=== PATIENT | female | born 1945 | race Caucasian/White ===

== ENCOUNTER 2023-03-28 12:47 | Emergency (ER) | payer OTHER ==
--- OUTSIDE RECORDS SUMMARY | 2023-03-28 12:50 | XMS REPORT | Continuity of Care Document ---
:1945 Author Organization [facility] t Address [address] [place] [address]. [address] [place] [address] Care Team Providers Name Role Phone MoRoge greyevan Marco Primary Care Physician RADIOLOGY Attending Clinician Unavailable Radiology Attending Clinician Unavailable Doctor Unassigned, [place] Attending Clinician Unavailable Payers Payer Name Policy Type Policy Number Effective Date Expiration Date [id number] 2022 ACCESS OPEN PPO 00:00:00 MEDICAID [place] [id number] 2023 00:00:00 Problems This patient has no known problems. Allergies, Adverse Reactions, Alerts Allergy Allergy Status Severity Reaction(s) Onset Inactive Treating Comm ents Source Name Type Date Date Clinician NO KNOWN Drug Active Univers ALLERGIE Class ity of [facility] Social History Social Habit Start Date Stop Date Quantity Comments Source Gender identity [facility] [birth year] [facility] 00:00:00 00:00:00 Medical Branch Smoking Status Start Date Stop Date Source Tobacco smoking consumption Univ [facility] Branch Medications This patient has no known medications. Procedures Procedure Date / Time Performed Performing Clinician Charan waller MR CERVICAL SPINE WO 2023-03-19 16:59:51 Requisition, Paper Univ [facility] ASSIGNMENT OF BENEFITS 2023-03-19 15:59:50 Doctor Unassigned, No [facility] Medical Branch Encounters Start End Encounter Admission Attending Care Care Encounter Source Date/Time Date/Time Type Type Clinicians Facility Department ID 2023-03-25 2023-03-25 Outpatient R RADIOLOGY [facility] [id number] Univers 00:00:00 00:00:00 ity of [facility] 2023-03-19 2023-03-19 [facility] Radiology [facility] [id number] Univers 12:04:14 23:59:00 Encounter [place] [id number] ity [place] [id number] [place] [id number] [facility] 807 Branch 2023-03-19 2023-03-19 [facility] Radiology [facility] [id number] Univers 11:02:55 12:03:00 Encounter [place] [id number] [facility] [place] [id number] 804 Branch 2023-03-19 2023-03-19 Outpatient R RADIOLOGY [facility] [id number] Univers 11:02:55 12:03:00 ity of [facility] 2023-03-19 2023-03-19 Orders Doctor EDGARDO [id number] Univers 00:00:00 00:00:00 Only Unassigned, CATHY [id number] ity of [place] [facility] [id number] Rakesh as [phone] [place] [id number] Branch Results This patient has no known results.
--- NOTE | 2023-03-28 13:35 | RAD REPORT ---
EXAM DESCRIPTION: RADChest Single View03/28/2023 1:05 pm CLINICAL HISTORY: Weakness COMPARISON: Chest Single View dated 11/18/2022 TECHNIQUE: Portable AP view of the chest. FINDINGS: The lungs are clear.Streaky left mid to lower lung opacity favored to represent atelectasi s. No pneumothorax or effusion. The cardiomediastinal contours are unremarkable. IMPRESSION: No acute cardiopulmonary process.
[2023-03-28 13:50] LABS: Absolute Lymphocytes (CBC) 2.3 K/uL (0.7-4.9); Hematocrit 41.7 % (36.0-45.0); MPV 8.3 fL (7.6-11.3); Platelets 220 thou/uL (152-406)
[2023-03-28 14:05] LABS: Albumin 3.7 g/dL (3.4-5.0); Bilirubin Direct 0.1 mg/dL (0-0.2); Bilirubin Indirect, Calculated 0.5 mg/dL (0.2-0.8); Bilirubin Total 0.6 mg/dL (0.2-1.0); Magnesium 2.2 mg/dL (1.6-2.4); Protein, Total 7.9 g/dL (6.4-8.2); Troponin High Sensitivity 6.6 pg/mL (<58.9)
--- NOTE | 2023-03-28 14:10 | EDPHYS ---
Physician Documentation [facility] Name: Madeline Parks Age: 78 yrs Sex: Female : 1945 Arrival Date: 03/28/2023 Time: 12:47 Bed 2 Private MD: ED Physician Darryn Barrios HPI: 03/28 17:07 This 78 yrs old Female presents to ER via EMS with complaints of difficulty walking. kdr 17:07 The patient presents with difficulty walking and incontinence of urine and possibly kdr bowel. The patient has had upper extremity/arm pain for several months. In the course of this being evaluated, the patient was sent for an MRI of her spine. This revealed a pathologic fracture in the C5 region. There was some associated cord compression and cord edema. The patient also stated that she was having difficulty getting comfortable due to the pain across the top of her shoulders and neck. Patient otherwise is nontoxic-appearing and is stable on presentation. Onset: The symptoms/episode began/occurred gradually, 2 month(s) ago, The incontinence of urine and possibly bowel have been worse over the past 3 to 5 days. Severity of symptoms: At their worst the symptoms were mild moderate just prior to arrival. The patient has not experienced similar symptoms in the past. The patient has been recently seen by a physician: the patient's primary care provider. Historical: - Allergies: 12:51 No Known Allergies; bp - Home Meds: 12:51 Labetalol Oral [Active]; meloxicam oral [Active]; Tylenol #3 Oral [Active]; bp - PMHx: 12:51 Arthritis; diabetes mellitus; Hypercholesterolemia; Hypertensive disorder; bp - Immunization history:: Adult Immunizations up to date. - Social history:: Smoking status: Patient denies any tobacco usage or history of. ROS: 17:07 Constitutional: Negative for fever, chills, and weight loss, Eyes: Negative for injury, kdr pain, redness, and discharge, ENT: Negative for injury, pain, and discharge, Cardiovascular: Negative for chest pain, palpitations, and edema, Respiratory: Negative for shortness of breath, cough, wheezing, and pleuritic chest pain, Abdomen/GI: Negative for abdominal pain, nausea, vomiting, diarrhea, and constipation, Back: Negative for injury and pain, : Negative for injury, bleeding, discharge, and swelling, MS/Extremity: Negative for injury and deformity, Skin: Negative for injury, rash, and discoloration, Psych: Negative for depression, anxiety, suicide ideation, homicidal ideation, and hallucinations, Allergy/Immunology: Negative for hives, rash, and allergies, Endocrine: Negative for neck swelling, polydipsia, polyuria, polyphagia, and marked weight changes, Hematologic/Lymphatic: Negative for swollen nodes, abnormal bleeding, and unusual bruising. 17:07 Neck: Positive for pain with movement, pain at rest, of the left trapezius, right trapezius and thoracic area. Exam: 17:07 Constitutional: This is a well developed, well nourished patient who is awake, alert, kdr and in no acute distress. Head/Face: Normocephalic, atraumatic. Chest/axilla: Normal chest wall appearance and motion. Nontender with no deformity. No lesions are appreciated. Cardiovascular: Regular rate and rhythm with a normal S1 and S2. No gallops, murmurs, or rubs. Normal PMI, no JVD. No pulse deficits. Respiratory: Lungs have equal breath sounds bilaterally, clear to auscultation and percussion. No rales, rhonchi or wheezes noted. No increased work of breathing, no retractions or nasal flaring. Abdomen/GI: Soft, non-tender, with normal bowel sounds. No distension or tympany. No guarding or rebound. No evidence of tenderness throughout. Back: No spinal tenderness. No costovertebral tenderness. Full range of motion. Skin: Warm, dry with normal turgor. Normal color with no rashes, no lesions, and no evidence of cellulitis. MS/ Extremity: Pulses equal, no cyanosis. Neurovascular intact. Full, normal range of motion. Psych: Awake, alert, with orientation to person, place and time. Behavior, mood, and affect are within normal limits. Vital Signs: 12:50 BP 150 / 90; Pulse 64; Resp 16; Temp 99.2; Pulse Ox 99% ; bp 14:37 BP 155 / 64; Pulse 74; Resp 15; Pulse Ox 95% ; jl7 16:14 BP 151 / 73; Pulse 75; Resp 16; Pulse Ox 97% ; bp MDM: 14:09 Patient medically screened. kdr 17:07 Data reviewed: vital signs, nurses notes, lab test result(s), radiologic studies. kdr 03/28 12:53 Order name: Basic Metabolic Panel kdr 03/28 12:53 Order name: CBC with Diff kdr 03/28 12:53 Order name: LFT's kdr 03/28 12:53 Order name: Magnesium kdr 03/28 12:53 Order name: NT PRO-BNP kdr 03/28 12:53 Order name: Troponin HS kdr 03/28 12:53 Order name: XRAY Chest (1 view) kdr 03/28 12:53 Order name: EKG; Complete Time: 12:54 kdr 03/28 12:53 Order name: Cardiac monitoring; Complete Time: 12:55 kdr 03/28 12:53 Order name: EKG - Nurse/Tech; Complete Time: 13:36 kdr 03/28 12:53 Order name: IV Saline Lock; Complete Time: 13:36 kdr 03/28 12:53 Order name: Labs collected and sent; Complete Time: 13:36 kdr 03/28 12:53 Order name: O2 Per Protocol; Complete Time: 12:55 kdr 03/28 12:53 Order name: O2 Sat Monitoring; Complete Time: 12:55 kdr Administered Medications: 14:15 Drug: MethylPrednisoLONE IVP 125 mg Route: IVP; Site: left antecubital; bp 16:14 Follow up: Response: No adverse reaction bp Disposition Summary: 03/28/23 14:09 Transfer Ordered Transfer Location: [facility] kdr Reason: Higher level of care kdr Condition: Fair kdr Problem: new kdr Symptoms: are unchanged kdr Accepting Physician: Eduin(03/28/23 16:36) bp Diagnosis - C5 pathologic fracture with endplate retropulsion and cord impingement kdr Forms: - Medication Reconciliation Form kdr - SBAR form kdr Signatures: Dispatcher [employer] EDMS Darryn Barrios MD MD kdr Clyde Londono RN RN bp Corrections: (The following items were deleted from the chart) 14:09 14:09 xdv kdr kdr 16:36 14:09 Eduin kdr bp
--- NOTE | 2023-03-28 14:10 | ER ---
Nurse's Notes [facility] Name: Madeline Parks Age: 78 yrs Sex: Female : 1945 Arrival Date: 03/28/2023 Time: 12:47 Bed 2 Private MD: Diagnosis: C5 pathologic fracture with endplate retropulsion and cord impingement Presentation: 03/28 12:50 Chief complaint: EMS states: DECREASED AMBULATION x2 WK, SEEN BY PCP AND DX WITH bp C-SPINE FX. Coronavirus screen: At this time, the client does not indicate any symptoms associated with coronavirus-19. Ebola Screen: No symptoms or risks identified at this time. Initial Sepsis Screen: Does the patient meet any 2 criteria? No. Patient's initial sepsis screen is negative. Does the patient have a suspected source of infection? No. Patient's initial sepsis screen is negative. Risk Assessment: Do you want to hurt yourself or someone else? Patient reports no desire to harm self or others. Onset of symptoms is unknown. 12:50 Method Of Arrival: EMS: [facility] bp 12:50 Acuity: SHAW 3 bp Triage Assessment: 12:51 General: Appears in no apparent distress. Behavior is calm, cooperative, appropriate bp for age. Pain: Complains of pain in back of neck. EENT: No deficits noted. Neuro: Reports DECREASED AMBULATION. Cardiovascular: No deficits noted. Respiratory: No deficits noted. GI: No signs and/or symptoms were reported involving the gastrointestinal system. : No signs and/or symptoms were reported regarding the genitourinary system. Derm: No deficits noted. Musculoskeletal: Reports weakness in right leg and left leg. Historical: - Allergies: 12:51 No Known Allergies; bp - Home Meds: 12:51 Labetalol Oral [Active]; meloxicam oral [Active]; Tylenol #3 Oral [Active]; bp - PMHx: 12:51 Arthritis; diabetes mellitus; Hypercholesterolemia; Hypertensive disorder; bp - Immunization history:: Adult Immunizations up to date. - Social history:: Smoking status: Patient denies any tobacco usage or history of. Screenin:54 [facility] ED Fall Risk Assessment (Adult) History of falling in the last 3 months, bp including since admission No falls in past 3 months (0 pts). Abuse screen: Denies threats or abuse. Denies injuries from another. Nutritional screening: No deficits noted. Tuberculosis screening: No symptoms or risk factors identified. Assessment: 12:54 General: SEE TRIAGE NOTE. bp 15:05 Reassessment: REPORT TO [facility] [address]. TRANSPORT PENDING. bp 16:10 Reassessment: EMS at bedside for transport. jl7 Vital Signs: 12:50 BP 150 / 90; Pulse 64; Resp 16; Temp 99.2; Pulse Ox 99% ; bp 14:37 BP 155 / 64; Pulse 74; Resp 15; Pulse Ox 95% ; jl7 16:14 BP 151 / 73; Pulse 75; Resp 16; Pulse Ox 97% ; bp ED Course: 12:48 Patient arrived in ED. ss 12:49 Clyde Londono, RN is Primary Nurse. bp 12:51 Triage completed. bp 12:53 Darryn Barrios MD is Attending Physician. kdr 12:54 Arm band placed on. bp 12:54 Patient has correct armband on for positive identification. Bed in low position. Call bp light in reach. Side rails up X2. 13:07 XRAY Chest (1 view) In Process Unspecified. EDMS 13:35 Inserted saline lock: 20 gauge in left antecubital area, using aseptic technique. Blood bp collected. 16:15 No provider procedures requiring assistance completed. Patient transferred, IV remains bp in place. Administered Medications: 14:15 Drug: MethylPrednisoLONE IVP 125 mg Route: IVP; Site: left antecubital; bp 16:14 Follow up: Response: No adverse reaction bp Medication: 12:54 VIS not applicable for this client. bp Outcome: 14:09 ER care complete, transfer ordered by . kdr 16:15 Transferred by ground EMS to [facility]. bp 16:15 Condition: stable 16:15 Instructed on the need for transfer. 16:36 Patient left the ED. bp Signatures: Dispatcher [employer] EDMS Darryn Barrios MD MD kdr Danuta Rowan RN RN Becky Duckworth RN RN jl7 Clyde Londono, GLEN RN bp
[2023-03-28] MEDS ORDERED: METHYLPREDNISOLONE 125 MG INJ ONE (14:24)
[2023-03-28 16:56] VITALS: TEMP 99.2
[2023-03-28 16:57] VITALS: BP 151/73; O2SAT 97
--- NOTE | 2023-03-29 15:28 | EKG ---
Test Date: 2023-03-28 Test Time: 13:33:59 Featherer: BP MEASUREMENT RESULTS: Intervals: Rate: 77 MS: 152 QRSD: 72 QT: 340 QTc: 384 [place]: P: 53 MS: 152 QRS: 32 T: 20 INTERPRETIVE STATEMENTS: Sinus rhythm with occasional premature ventricular complexes Nonspecific T wave abnormality Abnormal ECG Compared to ECG 11/18/2022 19:56:20 No significant changes Electronically Signed On 03-29-23 15:28:08 CDT by Angel Finley
== END 2023-03-28 16:36 | disposition short-term general hospital (02) ==
LOC: ER 12:47
DX: M84.48XA Pathological fracture, other site, initial encounter for fracture (principal); G95.29 Other cord compression; I10 Essential (primary) hypertension; E11.9 Type 2 diabetes mellitus without complications
CPT/HCPCS: 93005; 85025; 80048; 36415; 83735; 80076; 84484; 83880; 71045; 96374; 99285; J2930

== ENCOUNTER → 2023-09-07 | Emergency (ER) | payer OTHER ==
[~2023-09-07] MED LIST: NA CHLORIDE 0.9% 1,000 ML ONE
--- OUTSIDE RECORDS SUMMARY | 2023-09-07 12:11 | XMS REPORT | Continuity of Care Document ---
Author Name Unknown Address [address] [facility] [address] [place] [id number] [facility] [address] [facility] [address] [place] [address] Care Team Providers Care Overlock Elastic Attacher Name Role Phone Rodolfo Hassan MD Primary Care Physician [phone] Doctor Unassigned, [place] Attending Clinician U Natalie Quick MD Attending Clinician [phone] Sarah Quintana Attending Clinician [phone] Rodolfo Hassan Attending Clinician [phone] [place] CARROLL, David Mckeon Attending Clinician Unavail able NATALIE RIDLEY Attending Clinician Unavailable Betito Nunes MD Attending Clinician [phone] Anesthesiology Attending Clinician Unavailable RADIOLOGY Attending Clinician Unavailable Radiology Attending Clinician Unavailable BETITO NUNES Admitting Clinician Unavailable Betito Nunes MD Admitting Clinician [phone] Payers Payer Name Policy Type Policy Number Effective Date Expirati on Date Source Problems Condition Name Condition Details Condition Category Status Onset Date Resolution Date Last Treatment Date Treating Clinician Comments Source Metastatic cancer to spine Metastatic cancer to spine Disease Active 04-01 00:00: 00 Overview: Formattin g of this note is different from the original. 3: Intraoper ative Path:Renea l Diagnosis ?A., B. BONE (SPINE), C6 AND C5 BODY TUMOR, CORPECTOM Y: - METASTATI C ADENOCARC INOMA, CONSISTEN T WITH BREAST ORIGIN (SEE COMMENT)? [facility] Type 2 diabetes mellitus without complicati on, with long-term current use of insulin Type 2 diabetes mellitus without complicati on, with long-term current use of insulin Disease Active 03-30 00:00: 00 Overview: Formattin g of this note is different from the original. HGB A1C (%) Date Value 3 5.8 (H) [facility] Primary hypertensi on Primary hypertensi on Disease Active 03-30 00:00: 00 [facility] Gastroesop hageal reflux disease without esophagiti s Gastroesop hageal reflux disease without esophagiti s Disease [facility] 03-30 00:00: 00 [facility] Generalize d OA Generalize d OA Disease [facility] 03-30 00:00: 00 [facility] Adnexal mass Adnexal mass Disease Active 03-30 00:00: 00 Overview: Formattin g of this note might be different from the original. 03/29/23: Result Date: 03/29/2023 Large complex cystic mass appears related to the right adnexa measures up to 13.5 cm, may correspon d to a cystadeno ma or cystadeno carcinoma . There is no evidence for metastati c disease in the abdomen or pelvis. [facility] Obesity (BMI 35.0-39.9 without comorbidit y) Obesity (BMI 35.0-39.9 without comorbidit y) Disease [facility] 03-30 00:00: 00 [facility] Breast mass, right Breast mass, right Disease [facility] 03-30 00:00: 00 Overview: Formattin g of this note might be different from the original. 03/29/23P artially imaged suspected asymmetry in the medial right breast.Co nsider mammograp hic evaluatio n. There is an associate d prominent rightaxil audelia node. Several borderlin e right mediastin um and bilateral hilarpred ominant lymph nodes are nonspecif ic [facility] Thyroid nodule greater than or equal to 1.5 cm in diameter incidental ly noted on imaging study Thyroid nodule greater than or equal to 1.5 cm in diameter incidental ly noted on imaging study Disease Active 03-30 00:00: 00 Overview: Formattin g of this note might be different from the original. 23M ultiple hypoatten uating nodules in the thyroid gland, with a dominantl esion along the posterior right lobe measuring at least 2.7 cm in greatestd iameter [facility] Cervical stenosis of spinal canal Cervical stenosis of spinal canal Disease Active 03-28 00:00: 00 Overview: Formattin g of this note is different from the original. 3Severe compressi on fracture C5 with retropuls ion of the posterior cortexand the spinal canal resulting in severe canal stenosis and cordcompr ession with mild cord edema, unchanged from recent MRI dated 03/19/2023. ?Signal alteratio n throughou t the collapsed C5 vertebral body and the [id number] a, which remains normal in height, is suspiciou s for a pathologi calfractu re in the setting of potential metastati c disease or multiplem yeloma. The current exam was performed without IV contrast. ? [facility] Allergies, Adverse Reactions, Alerts Allergy Name Allergy Type Status Severity Reaction(s) Onset Date Inactive Date Treating Clinician Comments Source NO KNOWN ALLERGIE S Drug Class Active [facility] Social History Social Habit Start Date Stop Date Quantity Comments Source History of tobacco use Cigarette Smoker [facility] History of Social function 2023-04-07 00:00:00 2023-04-07 00:00:00 [facility] Tobacco use and exposure 2023-03-29 00:00:00 2023-03-29 00:00:00 Smokeless tobacco non-user [facility] Sex Assigned At 1945 00:00:00 1945 00:00:00 [facility] Smoking Status Start Date Stop Date Source Tobacco smoking consumption unknown [facility] Ex-smoker 2023-03-29 00:00:00 2023-03-29 00:00:00 [facility] Medications Ordered Medication Name Filled Medication Name Start Date Stop Date Current Medication? Ordering Clinician Indication Dosage Frequency Signature (SIG) Comments Components Source acetaminoph en (TYLENOL) tablet 325 mg 04-12 05:00: 00 Yes 325mg 325 mg, Oral, Q6H, First dose (after last modificati on) on Thu04/12/23 at 0000, Until Discontinu ed, Routine [facility] acetaminoph en-codeine (TYLENOL #3) 300-30 mg tablet 1 tablet 04-12 00:09: 13 Yes 1{tbl} 1 tablet, Oral, Q4HPRN, Starting on Thu04/11/23 at 1909, Until Discontinu ed, Routine, Pain (scale 7-10), Pain (scale 4-6) [facility] sodium phosphates (READY-TO-U SE ENEMA) 19-7 gram/118 mL enema 1 Enema 04-11 00:57: 35 Yes 1{enema } 1 Enema, Rectal, PRN, 1 dose, Starting on Thu04/10/23 at 1957, Until Discontinu ed, Routine, Constipati on unresolved by oral medication s [facility] bisacodyL (DULCOLAX) suppository 10 mg 04-10 20:24: 34 Yes 10mg 10 mg, Rectal, QDAILYPRN, Starting on Thu04/10/23 at 1524, Until Discontinu ed, Routine, Constipati on unresolved by oral medication [facility] lactulose (CEPHULAC) solution 30 mL 04-10 01:00: 00 Yes 30mL 30 mL, Oral, BID, First dose (after last modificati on) on Thu04/09/23 at 1999, Until Discontinu ed, Routine [facility] sennosides- docusate sodium (SENOKOT-S) 8.6-50 mg per tablet 1 tablet 04-10 01:00: 00 Yes 1{tbl} 1 tablet, Oral, BID, First dose (after last modificati on) on Thu04/09/23 at 1999, Until Discontinu ed, Routine [facility] polyethylen e glycol 3350 powder 17 g 04-10 01:00: 00 Yes 17g 17 g, Oral, BID, First dose (after last modificati on) on Thu04/09/23 at 1999, Until Discontinu ed, Routine [facility] lactulose (CEPHULAC) solution 30 mL 04-10 01:00: 00 Yes 30mL 30 mL, Oral, BID, First dose (after last modificati on) on Thu04/09/23 at 1999, Until Discontinu ed, Routine [facility] sennosides- docusate sodium (SENOKOT-S) 8.6-50 mg per tablet 1 tablet 04-10 01:00: 00 Yes 1{tbl} 1 tablet, Oral, BID, First dose (after last modificati on) on Thu04/09/23 at 1999, Until Discontinu ed, Routine [facility] polyethylen e glycol 3350 powder 17 g 04-10 01:00: 00 Yes 17g 17 g, Oral, BID, First dose (after last modificati on) on Thu04/09/23 at 1999, Until Discontinu ed, Routine [facility] sulfamethox azole-trime thoprim (BACTRIM DS) 800-160 mg per tablet 1 tablet 04-10 01:00: 00 04-13 00:59 :00 No 1{tbl} 1 tablet, Oral, BID, 6 doses, First dose on Thu04/09/23 at 1999, Last dose on Thu04/12/23 at 0800, LUCIAN
Re ason for Anti-Infec tive: Documented Infection< br>Documen thomas Infection Site: Urine
D uration of Therapy: Other (see Comments) [facility] sulfamethox azole-trime thoprim (BACTRIM DS) 800-160 mg per tablet 1 tablet 04-10 01:00: 00 04-12 13:28 :00 No 1{tbl} 1 tablet, Oral, BID, 6 doses, First dose on Thu04/09/23 at 2000, Last dose on Thu04/12/23 at 0800, LUCIAN
Re ason for Anti-Infec tive: Documented Infection< br>Documen thomas Infection Site: Urine
D uration of Therapy: Other (see Comments) [facility] ketorolac (TORADOL) injection 30 mg 2022-04-09 17:00: 00 04-10 10:59 :00 No 30mg 30 mg, Slow IV Push, Q6H, 3 doses, First dose on Thu04/09/23 at 1200, Last dose on Thu04/10/23 at 0000, Routine [facility] ketorolac (TORADOL) injection 30 mg 04-09 17:00: 00 04-10 10:59 :00 No 30mg 30 mg, Slow IV Push, Q6H, 3 doses, First dose on Thu04/09/23 at 1200, Last dose on Thu04/10/23 at 0000, Routine [facility] ondansetron (ZOFRAN (PF)) injection 4 mg 2022-04-09 14:30: 28 Yes 4mg 4 mg, Slow IV Push, Q6HPRN, Nausea and Vomiting (N/V), Starting on Thu04/09/23 at 0930
Do ses of ondansetro n 16 mg and above need to be administer ed via IV piggyback. For Dose >=24mg ECG monitoring is advisable.
[facility] ondansetron (ZOFRAN (PF)) injection 4 mg 2022-04-09 14:30: 28 Yes 4mg 4 mg, Slow IV Push, Q6HPRN, Nausea and Vomiting (N/V), Starting on Thu04/09/23 at 0930
Do ses of ondansetro n 16 mg and above need to be administer ed via IV piggyback. For Dose >=24mg ECG monitoring is advisable.
[facility] morpHINE (2 mg/mL) injection 2 mg 2022-04-09 14:27: 34 Yes 2mg 2 mg, Slow IV Push, Q2HPRN, Starting on Juanita 04/09/23 at 0927, Until Discontinu ed, Routine, Pain (scale 7-10) [facility] morpHINE (2 mg/mL) injection 2 mg 04-09 14:27: 34 04-12 00:09 :44 No 2mg 2 mg, Slow IV Push, Q2HPRN, Starting on Juanita 04/09/23 at 0927, Until 04/11/23 at 1909, Routine, Pain (scale 7-10) [facility] enoxaparin (LOVENOX) injection 40 mg 04-09 14:00: 00 Yes 40mg 40 mg, Subcutaneo us, Q24H, First dose on Thu04/09/23 at 0900, Until Discontinu ed, Routine [facility] enoxaparin (LOVENOX) injection 40 mg 04-09 14:00: 00 Yes 40mg 40 mg, Subcutaneo us, Q24H, First dose on Thu04/09/23 at 0900, Until Discontinu ed, Routine [facility] docusate (COLACE) 100 mg capsule 04-09 00:00: 00 04-24 04:59 :00 No [id number] 100mg Take 1 capsule by mouth in the morning for 14 days. [facility] methocarbam oL 500 mg tablet 04-09 00:00: 00 04-24 04:59 :00 No [id number] 500mg Take 1 tablet by mouth 4 (four) times daily for 14 days. Indication s: a uncontroll ed muscle contractio n with pain [facility] docusate (COLACE) 100 mg capsule 04-09 00:00: 00 04-24 04:59 :00 No [id number] 100mg Take 1 capsule by mouth in the morning for 14 days. [facility] methocarbam oL 500 mg tablet 04-09 00:00: 00 04-24 04:59 :00 No [id number] 500mg Take 1 tablet by mouth 4 (four) times daily for 14 days. Indication s: a uncontroll ed muscle contractio n with pain [facility] docusate (COLACE) 100 mg capsule 2022-0 824 00:00: 00 04-24 04:59 :00 No [id number] 100mg Take 1 capsule by mouth in the morning for 14 days. [facility] methocarbam oL 500 mg tablet 2022-0 8-24 00:00: 00 04-24 04:59 :00 No [id number] 500mg Take 1 tablet by mouth 4 (four) times daily for 14 days. Indication s: a uncontroll ed muscle contractio n with pain [facility] docusate (COLACE) 100 mg capsule 2022-0 824 00:00: 00 04-24 04:59 :00 No [id number] 100mg Take 1 capsule by mouth in the morning for 14 days. [facility] methocarbam oL 500 mg tablet 2022-0 824 00:00: 00 04-24 04:59 :00 No 2543 500mg Take 1 tablet by mouth 4 (four) times daily for 14 days. Indication s: a uncontroll ed muscle contractio n with pain [facility] 100 mg capsule 2022-0 824 00:00: 00 04-24 04:59 :00 No [id number] 100mg Take 1 capsule by mouth in the morning for 14 days. [facility] methocarbam oL 500 mg tablet 2022-0 8-24 00:00: 00 04-24 04:59 :00 No [id number] 500mg Take 1 tablet by mouth 4 (four) times daily for 14 days. Indication s: a uncontroll ed muscle contractio n with pain [facility] docusate (COLACE) 100 mg capsule 2022-0 8-24 00:00: 00 04-24 04:59 :00 No [id number] 100mg Take 1 capsule by mouth in the morning for 14 days. [facility] methocarbam oL 500 mg tablet 2022-0 8-24 00:00: 00 04-24 04:59 :00 No [id number] 500mg Take 1 tablet by mouth 4 (four) times daily for 14 days. Indication s: a uncontroll ed muscle contractio n with pain [facility] docus[facility] (COLACE) 100 mg capsule 04-09 00:00: 00 04-24 04:59 :00 No [id number] 100mg Take 1 capsule by mouth in the morning for 14 days. [facility] methocarbam oL 500 mg tablet 04-09 00:00: 00 04-24 04:59 :00 No [id number] 500mg Take 1 tablet by mouth 4 (four) times daily for 14 days. Indication s: a uncontroll ed muscle contractio n with pain [facility] docus[facility] (COLACE) 100 mg capsule 04-09 00:00: 00 04-24 04:59 :00 No [id number] 100mg Take 1 capsule by mouth in the morning for 14 days. [facility] methocarbam oL 500 mg tablet 04-09 00:00: 00 04-24 04:59 :00 No [id number] 500mg Take 1 tablet by mouth 4 (four) times daily for 14 days. Indication s: a uncontroll ed muscle contractio n with pain [facility] HYDROcodone -acetaminop hen 5-325 mg tablet 04-09 00:00: 00 04-17 04:59 :00 No [id number] 1{tbl} Take 1 tablet by mouth every 4 (four) hours as needed for Pain (scale 4-6) or Pain (scale 7-10) for up to 7 days. Indication s: acute pain [facility] HYDROcodone -acetaminop hen 5-325 mg tablet 2022-0 8-24 00:00: 00 04-17 04:59 :00 No [id number] 1{tbl} Take 1 tablet by mouth every 4 (four) hours as needed for Pain (scale 4-6) or Pain (scale 7-10) for up to 7 days. Indication s: acute pain [facility] HYDROcodone -acetaminop hen 5-325 mg tablet 2022- 8-24 00:00: 00 04-17 04:59 :00 No [id number] 1{tbl} Take 1 tablet by mouth every 4 (four) hours as needed for Pain (scale 4-6) or Pain (scale 7-10) for up to 7 days. Indication s: acute pain [facility] acetaminoph en (TYLENOL) tablet 650 mg 04-08 23:00: 00 Yes 650mg 650 mg, Oral, Q6H, First dose on Thu04/08/23 at 1800, Until Discontinu ed, Routine [facility] acetaminoph en (TYLENOL) tablet 650 mg 04-08 23:00: 00 04-12 00:09 :45 No 650mg 650 mg, Oral, Q6H, First dose on Thu04/08/23 at 1800, Until Discontinu ed, Routine [facility] NaCl 0.9% (NS) IV infusion 1,000 mL 04-08 20:45: 00 Yes 1000mL at 42 mL/hr, IV Infusion, CONTINUOUS , Starting on Thu04/08/23 at 1545, Until Discontinu ed, Routine [facility] NaCl 0.9% (NS) IV infusion 1,000 mL 04-08 20:45: 00 Yes 1000mL at 42 mL/hr, IV Infusion, CONTINUOUS , Starting on Thu04/08/23 at 1545, Until Discontinu ed, Routine [facility] ceFAZolin (ANCEF) injection 1,000 mg 04-08 20:45: 00 04-10 20:44 :00 No 1000mg 1,000 mg, Intravenou s, Q8H ABX, 6 doses, First dose on Thu04/08/23 at 1545, Last dose on Thu04/10/23 at 0745
Re ason for Anti-Infec tive: Surgical Prophylaxi s
Surgi miracle Prophylaxi s: Neurosurge ry
Dura tion of therapy: within 24 hours of surgery [facility] ceFAZolin (ANCEF) injection 1,000 mg 04-08 20:45: 00 04-10 15:00 :00 No 1000mg 1,000 mg, Intravenou s, Q8H ABX, 6 doses, First dose on Thu04/08/23 at 1545, Last dose on Thu04/10/23 at 0745
Re ason for Anti-Infec tive: Surgical Prophylaxi s
Surgi miracle Prophylaxi s: Neurosurge ry
Dura tion of therapy: within 24 hours of surgery [facility] morpHINE 30 mg/30 mL (fixed dose) HE[employer] EDUCATION AIDE injection 04-08 20:45: 00 04-09 14:28 :56 No Patient Bolus Dose: 1 mg
Lock out Interval: 6 Minutes
Basal Rate: 0 mg/hr
F our Hour Dose Limit: 32 mg
Intr avenous, 30 mL, CONTINUOUS , Starting on Thu04/08/23 at 1545, Until Thu04/09/23 at 0928 [facility] sulfamethox azole-trime thoprim (BACTRIM IV) 400-80 mg/5 mL 160 mg in D5W piggyback 04-08 20:30: 00 04-09 19:32 :24 No 160mg 160 mg, IV Piggyback, Q12H ABX, 10 doses, First dose on Thu04/08/23 at 1530, Last dose on Thu04/13/23 at 0330, Administer over 2 Hours, 250 mL
Reas on for Anti-Infec tive: Documented Infection& lt;br>Docu mented Infection Site: Urine
D uration of Therapy: 7 days [facility] FENTanyl PF (SUBLIMAZE (PF)) injection 25 mcg 04-08 19:45: 58 04-08 21:09 :46 No 25ug 25 mcg, Slow IV Push, Q5MIN PRN, 4 doses, Starting on Thu04/08/23 at 1445, Until Thu04/08/23 at 1609, Routine, Pain (scale 4-6), PACU [facility] HYDROmorpho ne (DILAUDID) injection 0.2 mg 04-08 19:45: 58 04-08 20:15 :00 No .2mg 0.2 mg, Slow IV Push, Q5MIN PRN, 3 doses, Starting on Thu04/08/23 at 1445, Until Thu04/08/23 at 1515, Routine, Pain (scale 7-10), PACU
Us e approved by (Faculty): PACU USE -ANESTHESI A SERVICE-HY DROMORPHON E INJECTIONS [facility] oxyCODONE immediate release tablet 5 mg 04-08 19:45: 00 Yes 5mg 5 mg, Oral, Q4HPRN, Starting on Thu04/08/23 at 1445, Until Discontinu ed, Routine, Pain (scale 4-6)
Fa culty member approving Restricted medication : NATALIE RIDLEY [facility] oxyCODONE immediate release tablet 5 mg 04-08 19:45: 00 04-12 00:09 :44 No 5mg 5 mg, Oral, Q4HPRN, Starting on Thu04/08/23 at 1445, Until 04/11/23 at 1909, Routine, Pain (scale 4-6)
Fa culty member approving Restricted medication : NATALIE RIDLEY [facility] naloxone (NARCAN) injection 0.1 mg 04-08 19:38: 32 Yes .1mg 0.1 mg, Slow IV Push, SEE-INSTRU CTIONS, Starting on Thu04/08/23 at 1438, Until Discontinu ed, Routine [facility] naloxone (NARCAN) injection 0.1 mg 04-08 19:38: 32 Yes .1mg 0.1 mg, Slow IV Push, SEE-INSTRU CTIONS, Starting on Thu04/08/23 at 1438, Until Discontinu ed, Routine [facility] bupivacaine (preserv free) (SENSORCAIN E MPF) 0.25 % (2.5 mg/mL) 30 mL, BUPivacaine liposome (PF) (EXPAREL (PF)) 1.3 % (13.3 mg/mL) 20 mg 04-08 18:11: 00 Yes PRN, Starting on Thu04/08/23 at 1311, Intra-op [facility] bupivacaine (preserv free) (SENSORCAIN E MPF) 0.25 % (2.5 mg/mL) 30 mL, BUPivacaine liposome (PF) (EXPAREL (PF)) 1.3 % (13.3 mg/mL) 20 mg 04-08 18:11: 00 Yes PRN, Starting on Thu04/08/23 at 1311, Intra-op [facility] vancomycin (VANCOCIN) injection 04-08 15:52: 00 Yes PRN, Starting on Thu04/08/23 at 1052, Until Discontinu ed, LUCIAN, Intra-op [facility] vancomycin (VANCOCIN) injection 04-08 15:52: 00 Yes PRN, Starting on Thu04/08/23 at 1052, Until Discontinu ed, LUCIAN, Intra-op [facility] thrombin (recombinan t) (RECOTHROM) topical solution 04-08 15:51: 00 Yes PRN, Starting on Thu04/08/23 at 1051, Until Discontinu ed, Routine, [facility] thrombin ([facility]combinan t) (RECOTHROM) topical solution 04-08 15:51: 00 Yes PRN, Starting on Thu04/08/23 at 1051, Until Discontinu ed, Routine, Intra-op [facility] lidocaine-e pinephrine (XYLOCAINE WITH EPINEPHRINE ) 0.5 %-1:200,000 injection 04-08 15:20: 00 Yes PRN, Starting on Thu04/08/23 at 1020, Until Discontinu ed, Routine, Intra-op [facility] lidocaine-e pinephrine (XYLOCAINE WITH EPINEPHRINE ) 0.5 %-1:200,000 injection 04-08 15:20: 00 Yes PRN, Starting on Thu04/08/23 at 1020, Until Discontinu ed, Routine, Intra-op [facility] sodium phosphates (READY-TO-U SE ENEMA) 19-7 gram/118 mL enema 1 Enema 04-07 18:45: 00 04-07 23:37 :00 No 1{enema } 1 Enema, Rectal, ONCE, 1 dose, On Thu04/07/23 at 1345, Routine [facility] lactulose (CEPHULAC) solution 30 mL 04-06 20:45: 00 04-09 16:47 :56 No 30mL 30 mL, Oral, DAILY, First dose on Thu04/06/23 at 1545, Until Discontinu ed, Routine [facility] magnesium hydroxide (MILK OF MAGNESIA) 400 mg/5 mL suspension 30 mL 04-03 18:45: 00 Yes 30mL 30 mL, Oral, DAILY, First dose on Thu04/03/23 at 1345, Until Discontinu ed, Routine [facility] polyethylen e glycol 3350 powder 17 g 04-03 18:45: 00 Yes 17g 17 g, Oral, DAILY, First dose on Thu04/03/23 at 1345, Until Discontinu ed, Routine [facility] magnesium hydroxide (MILK OF MAGNESIA) 400 mg/5 mL suspension 30 mL 04-03 18:45: 00 Yes 30mL 30 mL, Oral, DAILY, First dose on Thu04/03/23 at 1345, Until Discontinu ed, [facility]ine [facility] hydroxide (MILK OF MAGNESIA) 400 mg/5 mL suspension 30 mL 04-03 18:45: 00 Yes 30mL 30 mL, Oral, DAILY, First dose on Thu04/03/23 at 1345, Until Discontinu ed, Routine [facility] polyethylen e glycol 3350 powder 17 g 04-03 18:45: 00 04-09 16:47 :56 No 17g 17 g, Oral, DAILY, First dose on Thu04/03/23 at 1345, Until Discontinu ed, Routine [facility] HYDROcodone -acetaminop hen (NORCO 5) 5-325 mg tablet 1 tablet 04-03 16:45: 00 04-03 16:53 :00 No 1{tbl} 1 tablet, Oral, ONCE, 1 dose, On Thu04/03/23 at 1145, Routine, PACU [facility] gadoteridol (PROHANCE-2 0 mL) injection 18.06 mL 04-03 16:00: 00 04-03 16:03 :00 No [id number] .2mL/kg 18.06 mL (0.2 mL/kg ?90.3 kg), Intravenou s, ONCE, 1 dose, On Thu04/03/23 at 1100, Routine [facility] sennosides- docusate sodium (SENOKOT-S) 8.6-50 mg per tablet 1 tablet 04-03 14:00: 00 Yes 1{tbl} 1 tablet, Oral, DAILY, First dose on Thu04/03/23 at 0900, Until Discontinu ed, Routine [facility] sennosides- docusate sodium (SENOKOT-S) 8.6-50 mg per tablet 1 tablet 04-03 14:00: 00 04-09 16:47 :55 No 1{tbl} 1 tablet, Oral, DAILY, First dose on Thu04/03/23 at 0900, Until Discontinu ed, Routine [facility] ceFAZolin (ANCEF) 1,000 mg in NaCl 0.9% (NS) 100 mL MINI-BAG 04-02 20:15: 00 04-02 21:42 :00 No 1000mg 1,000 mg, Intravenou s, Q8H ABX, 1 dose, First dose on Thu04/02/23 at 1515, Administer over 30 Minutes, 100 mL
Reas on for Anti-Infec tive: Surgical Prophylaxi s
Surgi miracle Prophylaxi s: Neurosurge ry
Dura tion of therapy: within 24 hours of surgery [facility] enoxaparin (LOVENOX) injection 40 mg 04-02 01:00: 00 Yes 40mg 40 mg, Subcutaneo us, Q24H, First dose on Thu04/01/23 at 2000, Until Discontinu ed, Routine [facility] enoxaparin (LOVENOX) injection 40 mg 04-02 01:00: 00 04-07 14:08 :24 No 40mg 40 mg, Subcutaneo us, Q24H, First dose on Thu04/01/23 at 2000, Until Discontinu ed, Routine [facility] acetaminoph en ADULT (IRMEV) injection 1,000 mg 04-01 11:00: 00 04-01 18:34 :00 No 1000mg 1,000 mg, IV Infusion, at 400 mL/hr Administer over 15 Minutes, Q8H, 2 doses, First dose (after last modificati on) on Thu04/01/23 at 0600, Last dose on Thu04/01/23 at 1400, Routine
Indicatio n: Non-periop erative Patient
Approved by: Per Policy (NPO Status) [facility] dexamethaso ne (DECADRON PHOSPHATE) injection 4 mg 03-31 23:00: 00 04-01 18:15 :00 No 4mg 4 mg, Intravenou s, Q6H, 4 doses, First dose on Thu03/31/23 at 1800, Last dose on Thu04/01/23 at 1200, 1 mL [facility] acetaminoph en ADULT [facility] injection 1,000 mg 03-31 23:00: 00 04-01 05:46 :34 No 1000mg 1,000 mg, IV Infusion, at 400 mL/hr Administer over 15 Minutes, Q6H, 4 doses, First dose on Thu03/31/23 at 1800, Last dose on Thu04/01/23 at 1200, Routine
Indicatio n: Non-periop erative Patient
Approved by: Per Policy (NPO Status) [facility] [facility] HYDROcodone -acetaminop hen (NORCO 5) 5-325 mg tablet 1 tablet 03-31 22:30: 00 03-31 22:38 :00 No 1{tbl} 1 tablet, Oral, ONCE, 1 dose, On Thu03/31/23 at 1730, Routine, PACU [facility] morpHINE (2 mg/mL) injection 2 mg 03-31 22:15: 00 Yes 2mg 2 mg, Slow IV Push, Q3HPRN, Starting on Thu03/31/23 at 1715, Until Discontinu ed, Routine, Pain (scale 7-10) [facility] morpHINE (2 mg/mL) injection 2 mg 2022-03-31 22:15: 00 Yes 2mg 2 mg, Slow IV Push, Q3HPRN, Starting on Thu03/31/23 at 1715, Until Discontinu ed, Routine, Pain (scale 7-10) [facility] morpHINE (2 mg/mL) injection 2 mg 03-31 22:15: 00 04-09 14:29 :59 No 2mg 2 mg, Slow IV Push, Q3HPRN, Starting on Thu03/31/23 at 1715, Until Juanita 04/09/23 at 0929, Routine, Pain (scale 7-10) [facility] oxyCODONE immediate release tablet 5 mg 03-31 22:10: 32 Yes 5mg 5 mg, Oral, Q6HPRN, Starting on Thu03/31/23 at 1710, Until Discontinu ed, Routine, Pain (scale 4-6)
Fa culty member approving Restricted medication : NATALIE RIDLEY [facility] oxyCODONE immediate release tablet 5 mg 03-31 22:10: 32 Yes 5mg 5 mg, Oral, Q6HPRN, Starting on Thu03/31/23 at 1710, Until Discontinu ed, Routine, Pain (scale 4-6)
Fa culty member approving Restricted medication : NATALIE RIDLEY [facility] oxyCODONE immediate release tablet 5 mg 03-31 22:10: 32 04-08 19:39 :53 No 5mg 5 mg, Oral, Q6HPRN, Starting on Thu03/31/23 at 1710, Until Thu04/08/23 at 1439, Routine, Pain (scale 4-6)
Fa culty member approving Restricted medication : NATALIE RIDLEY [facility] phenoL (SORE THROAT (PHENOL)) 1.4 % spray bottle 1 [place] 03-31 22:05: 55 Yes 1{spray } 1 [place], Oral, PRN, Starting on Thu03/31/23 at 1705, Until Discontinu ed, Routine, Sore throat [facility] phenoL (SORE THROAT (PHENOL)) 1.4 % spray bottle 1 [place] 03-31 22:05: 55 Yes 1{spray } 1 [place], Oral, PRN, Starting on Thu03/31/23 at 1705, Until Discontinu ed, Routine, Sore throat [facility] phenoL (SORE THROAT (PHENOL)) 1.4 % spray bottle 1 [place] 03-31 22:05: 55 Yes 1{spray } 1 [place], Oral, PRN, Starting on Thu03/31/23 at 1705, Until Discontinu ed, Routine, Sore throat [facility] phenoL (SORE THROAT (PHENOL)) 1.4 % spray bottle 1 [place] 03-31 22:05: 55 Yes 1{spray } 1 [place], Oral, PRN, Starting on Thu03/31/23 at 1705, Until Discontinu ed, Routine, Sore throat [facility] vancomycin (VANCOCIN) 1 g in sodium chloride 0.9 % irrigation 03-31 21:19: 00 Yes PRN, Starting on Thu03/31/23 at 1619, Until Discontinu ed, 1,000 mL, Intra-op [facility] vancomycin (VANCOCIN) 1 g in sodium chloride 0.9 % irrigation 03-31 21:19: 00 Yes PRN, Starting on Thu03/31/23 at 1619, Until Discontinu ed, 1,000 mL, Intra-op [facility] vancomycin (VANCOCIN) 1 g in sodium chloride 0.9 % irrigation 03-31 21:19: 00 Yes PRN, Starting on Thu03/31/23 at 1619, Until Discontinu ed, 1,000 mL, Intra-op [facility] vancomycin (VANCOCIN) 1 g in sodium chloride 0.9 % irrigation 03-31 21:19: 00 Yes PRN, Starting on Thu03/31/23 at 1619, Until Discontinu ed, 1,000 mL, Intra-op [facility] lidocaine-e pinephrine (XYLOCAINE WITH EPINEPHRINE ) 0.5 %-1:200,000 injection 03-31 19:19: 00 Yes PRN, Starting on Thu03/31/23 at 1419, Until Discontinu ed, Routine, Intra-op [facility] lidocaine-e pinephrine (XYLOCAINE WITH EPINEPHRINE ) 0.5 %-1:200,000 injection 03-31 19:19: 00 Yes PRN, Starting on Thu03/31/23 at 1419, Until Discontinu ed, Routine, Intra-op [facility] lidocaine-e pinephrine (XYLOCAINE WITH EPINEPHRINE ) 0.5 %-1:200,000 injection 03-31 19:19: 00 Yes PRN, Starting on Thu03/31/23 at 1419, Until Discontinu ed, Routine, Intra-op [facility] lidocaine-e pinephrine (XYLOCAINE WITH EPINEPHRINE ) 0.5 %-1:200,000 injection 03-31 19:19: 00 Yes PRN, Starting on Thu03/31/23 at 1419, Until Discontinu ed, Routine, Intra-op [facility] thrombin (recombinan t) (RECOTHROM) topical solution 03-31 19:15: 00 Yes PRN, Starting on Thu03/31/23 at 1415, Until Discontinu ed, Routine, Intra-op [facility] thrombin (recombinan t) (RECOTHROM) topical solution 03-31 19:15: 00 Yes PRN, Starting on Thu03/31/23 at 1415, Until Discontinu ed, Routine, Intra-op [facility] thrombin (recombinan t) (RECOTHROM) topical solution 03-31 19:15: 00 Yes PRN, Starting on Thu03/31/23 at 1415, Until Discontinu ed, Routine, Intra-op [facility] thrombin (recombinan t) (RECOTHROM) topical solution 03-31 19:15: 00 Yes PRN, Starting on Thu03/31/23 at 1415, Until Discontinu ed, Routine, Intra-op [facility] amLODIPine (NORVASC) tablet 5 mg 2022-0 03-30 14:00: 00 Yes 5mg 5 mg, Oral, DAILY, First dose on Thu03/30/23 at 0900, Until Discontinu ed, Routine [facility] omeprazole (PRILOSEC) capsule 20 mg 2022-0 03-30 14:00: 00 Yes 20mg 20 mg, Oral, DAILY, First dose on Thu03/30/23 at 0900, Until Discontinu ed, [facility] tol[facility] LA (DETROL LA) 24 hr capsule 2 mg 2022-0 03-30 14:00: 00 Yes 2mg 2 mg, Oral, DAILY, First dose on Thu03/30/23 at 0900, Until Discontinu ed, Routine [facility] losartan (COZAAR) tablet 50 mg 2022-0 03-30 14:00: 00 Yes 50mg 50 mg, Oral, DAILY, First dose on Thu03/30/23 at 0900, Until Discontinu ed, Routine [facility] amLOD[facility]ine (NORVASC) tablet 5 mg 2022-0 03-30 14:00: 00 Yes 5mg 5 mg, Oral, DAILY, First dose on Thu03/30/23 at 0900, Until Discontinu ed, Routine [facility] omeprazole (PRILOSEC) capsule 20 mg 2022-0 03-30 14:00: 00 Yes 20mg 20 mg, Oral, DAILY, First dose on Thu03/30/23 at 0900, Until Discontinu ed, Routine [facility] tolterodine LA (DETROL LA) 24 hr capsule 2 mg 2022-0 03-30 14:00: 00 Yes 2mg 2 mg, Oral, DAILY, First dose on Thu03/30/23 at 0900, Until Discontinu ed, Routine [facility] losartan (COZAAR) tablet 50 mg 2022-0 03-30 14:00: 00 Yes 50mg 50 mg, Oral, DAILY, First dose on Thu03/30/23 at 0900, Until Discontinu ed, Routine [facility] amLODIPine (NORVASC) tablet 5 mg 2022-0 03-30 14:00: 00 Yes 5mg 5 mg, Oral, DAILY, First dose on Thu03/30/23 at 0900, Until Discontinu ed, Routine [facility] omeprazole (PRILOSEC) capsule 20 mg 2022-0 03-30 14:00: 00 Yes 20mg 20 mg, Oral, DAILY, First dose on Thu03/30/23 at 0900, Until Discontinu ed, Routine [facility] tolterodine LA (DETROL LA) 24 hr capsule 2 mg 2022-0 03-30 14:00: 00 Yes 2mg 2 mg, Oral, DAILY, First dose on Thu03/30/23 at 0900, Until Discontinu ed, Routine [facility] losartan (COZAAR) tablet 50 mg 03-30 14:00: 00 Yes 50mg 50 mg, Oral, DAILY, First dose on Thu03/30/23 at 0900, Until Discontinu ed, Routine [facility] amLODIPine (NORVASC) tablet 5 mg 0 03-30 14:00: 00 Yes 5mg 5 mg, Oral, DAILY, First dose on Thu03/30/23 at 0900, Until Discontinu ed, Routine [facility] omeprazole (PRILOSEC) capsule 20 mg 0 03-30 14:00: 00 Yes 20mg 20 mg, Oral, DAILY, First dose on Thu03/30/23 at 0900, Until Discontinu ed, Routine [facility] tolterodine LA (DETROL LA) 24 hr capsule 2 mg 03-30 14:00: 00 Yes 2mg 2 mg, Oral, DAILY, First dose on Thu03/30/23 at 0900, Until Discontinu ed, Routine [facility] losartan (COZAAR) tablet 50 mg 2022-03-30 14:00: 00 Yes 50mg 50 mg, Oral, DAILY, First dose on Thu03/30/23 at 0900, Until Discontinu ed, Routine [facility] insulin glargine (LANTUS U-100) injection 60 Units 03-30 02:00: 00 Yes 60U 60 Units, Subcutaneo us, QHS, First dose on 03/29/23 at 2100, Until Discontinu ed, Routine [facility] glargine (LANTUS U-100) injection 60 Units 2022-0 03-30 02:00: 00 Yes 60U 60 Units, Subcutaneo us, QHS, First dose on 03/29/23 at 2100, Until Discontinu ed, Routine [facility] insulin glargine (LANTUS U-100) injection 60 Units 0 03-30 02:00: 00 Yes 60U 60 Units, Subcutaneo us, QHS, First dose on 03/29/23 at 2100, Until Discontinu ed, Routine [facility] insulin glargine (LANTUS U-100) injection 60 Units 0 03-30 02:00: 00 Yes 60U 60 Units, Subcutaneo us, QHS, First dose on 03/29/23 at 2100, Until Discontinu ed, Routine [facility] docusate (COLACE) capsule 100 mg 0 03-29 14:00: 00 Yes 100mg 100 mg, Oral, DAILY, First dose on 03/29/23 at 0900, Until Discontinu ed, Routine [facility] docusate (COLACE) capsule 100 mg 0 03-29 14:00: 00 Yes 100mg 100 mg, Oral, DAILY, First dose on 03/29/23 at 0900, Until Discontinu ed, Routine [facility] docusate (COLACE) capsule 100 mg 0 03-29 14:00: 00 Yes 100mg 100 mg, Oral, DAILY, First dose on 03/29/23 at 0900, Until Discontinu ed, Routine [facility] docusate (COLACE) capsule 100 mg 2022-0 03-29 14:00: 00 Yes 100mg 100 mg, Oral, DAILY, First dose on 03/29/23 at 0900, Until Discontinu ed, Routine [facility] enoxaparin (LOVENOX) injection 40 mg 03-29 14:00: 00 03-30 23:23 :45 No 40mg 40 mg, Subcutaneo us, DAILY, First dose on 03/29/23 at 0900, Until Discontinu ed, Routine [facility] pantoprazol e (PROTONIX) EC tablet 40 mg 03-29 14:00: 00 03-29 21:08 :41 No 40mg 40 mg, Oral, DAILY, First dose on 03/29/23 at 0900, Until Discontinu ed, Routine [facility] Sliding Scale Insulin - Lispro (HumaLOG) 03-29 13:00: 00 Yes Subcutaneo us, TID MEALS+HS, First dose on 03/29/23 at 0800, Until Discontinu ed, Routine [facility] Sliding Scale Insulin - Lispro (HumaLOG) 03-29 13:00: 00 Yes Subcutaneo us, TID MEALS+HS, First dose on 03/29/23 at 0800, Until Discontinu ed, Routine [facility] Sliding Scale Insulin - Lispro (HumaLOG) 03-29 13:00: 00 Yes Subcutaneo us, TID MEALS+HS, First dose on 03/29/23 at 0800, Until Discontinu ed, Routine [facility] Sliding Scale Insulin - Lispro (HumaLOG) 03-29 13:00: 00 Yes Subcutaneo us, TID MEALS+HS, First dose on 03/29/23 at 0800, Until Discontinu ed, Routine [facility] iopamidol (ISOVUE 370-500 mL) injection 80 mL 03-29 08:57: 00 03-29 09:15 :00 No [id number] 80mL 80 mL, Intravenou s, ONCE, 1 dose, On 03/29/23 at 0415, Routine [facility] cyclobenzap rine (FLEXERIL) tablet 5 mg 03-29 04:30: 00 Yes 5mg 5 mg, Oral, TID, First dose on 03/28/23 at 2330, Until Discontinu ed, Routine [facility] cyclobenzap rine (FLEXERIL) tablet 5 mg 03-29 04:30: 00 Yes 5mg 5 mg, Oral, TID, First dose on 03/28/23 at 2330, Until Discontinu ed, Routine [facility] cyclobenzap rine (FLEXERIL) tablet 5 mg 03-29 04:30: 00 Yes 5mg 5 mg, Oral, TID, First dose on 03/28/23 at 2330, Until Discontinu ed, Routine [facility] cyclobenzap rine (FLEXERIL) tablet 5 mg 03-29 04:30: 00 Yes 5mg 5 mg, Oral, TID, First dose on 03/28/23 at 2330, Until Discontinu ed, Routine [facility] glucagon (GLUCAGEN DIAGNOSTIC KIT) injection 1 mg 03-29 04:21: 15 Yes 1mg 1 mg, Intramuscu lar, PRN, Starting on 03/28/23 at 2321, Until Discontinu ed, LUCIAN, Blood Glucose < or = 70 mg/dL and patient is NPO, unable to swallow or has mental changes. [facility] dextrose 50 % in water (D50W) injection 25 mL 03-29 04:21: 15 Yes 25mL 25 mL, Slow IV Push, PRN, Starting on 03/28/23 at 2321, Until Discontinu ed, LUCIAN, Blood Glucose < or = 70 mg/dL and patient is NPO, unable to swallow or has mental status changes. [facility] glucagon (GLUCAGEN DIAGNOSTIC KIT) injection 1 mg 03-29 04:21: 15 Yes 1mg 1 mg, Intramuscu lar, PRN, Starting on 03/28/23 at 2321, Until Discontinu ed, LUCIAN, Blood Glucose < or = 70 mg/dL and patient is NPO, unable to swallow or has mental changes. [facility] dextrose 50 % in water (D50W) injection 25 mL 03-29 04:21: 15 Yes 25mL 25 mL, Slow IV Push, PRN, Starting on 03/28/23 at 2321, Until Discontinu ed, LUCIAN, Blood Glucose < or = 70 mg/dL and patient is NPO, unable to swallow or has mental status changes. [facility] glucagon (GLUCAGEN DIAGNOSTIC KIT) injection 1 mg 03-29 04:21: 15 Yes 1mg 1 mg, Intramuscu lar, PRN, Starting on 03/28/23 at 2321, Until Discontinu ed, LUCIAN, Blood Glucose < or = 70 mg/dL and patient is NPO, unable to swallow or has mental changes. [facility] dextrose 50 % in water (D50W) injection 25 mL 03-29 04:21: 15 Yes 25mL 25 mL, Slow IV Push, PRN, Starting on 03/28/23 at 2321, Until Discontinu ed, LUCIAN, Blood Glucose < or = 70 mg/dL and patient is NPO, unable to swallow or has mental status changes. [facility] glucagon (GLUCAGEN DIAGNOSTIC KIT) injection 1 mg 03-29 04:21: 15 Yes 1mg 1 mg, Intramuscu lar, PRN, Starting on 03/28/23 at 2321, Until Discontinu ed, LUCIAN, Blood Glucose < or = 70 mg/dL and patient is NPO, unable to swallow or has mental changes. [facility] dextrose 50 % in water (D50W) injection 25 mL 03-29 04:21: 15 Yes 25mL 25 mL, Slow IV Push, PRN, Starting on 03/28/23 at 2321, Until Discontinu ed, LUCIAN, Blood Glucose < or = 70 mg/dL and patient is NPO, unable to swallow or has mental status changes. [facility] labetaloL (NORMODYNE) injection 20 mg 03-29 04:21: 11 Yes 20mg 20 mg, Slow IV Push, Q15MIN PRN, Starting on 03/28/23 at 2321, Until Discontinu ed, Routine, Hyertensio n: BP parameters SBP > 160, HOLD for HR < [address] [facility] hydralAZINE (APRESOLINE ) injection 10 mg 03-29 04:21: 11 Yes 10mg 10 mg, Slow IV Push, Q2HPRN, Starting on 03/28/23 at 2321, Until Discontinu ed, Routine, DBP=>100; SBP=>[address] [facility] labetaloL (NORMODYNE) injection 20 mg 3-0 03-29 04:21: 11 Yes 20mg 20 mg, Slow IV Push, Q15MIN PRN, Starting on 03/28/23 at 2321, Until Discontinu ed, Routine, Hyertensio n: BP parameters SBP > 160, HOLD for HR < [address] [facility] hydralAZINE (APRESOLINE ) injection 10 mg 2022-0 03-29 04:21: 11 Yes 10mg 10 mg, Slow IV Push, Q2HPRN, Starting on 03/28/23 at 2321, Until Discontinu ed, Routine, DBP=>100; SBP=>[address] [facility] labetaloL (NORMODYNE) injection 20 mg 2022-0 03-29 04:21: 11 Yes 20mg 20 mg, Slow IV Push, Q15MIN PRN, Starting on 03/28/23 at 2321, Until Discontinu ed, Routine, Hyertensio n: BP parameters SBP > 160, HOLD for HR < [address] [facility] hydralAZINE (APRESOLINE ) injection 10 mg 2022-0 03-29 04:21: 11 Yes 10mg 10 mg, Slow IV Push, Q2HPRN, Starting on 03/28/23 at 2321, Until Discontinu ed, Routine, DBP=>100; SBP=>[address] [facility] labetaloL (NORMODYNE) injection 20 mg 2022-0 03-29 04:21: 11 Yes 20mg 20 mg, Slow IV Push, Q15MIN PRN, Starting on 03/28/23 at 2321, Until Discontinu ed, Routine, Hyertensio n: BP parameters SBP > 160, HOLD for HR < [address] [facility] hydralAZINE (APRESOLINE ) injection 10 mg 2022-0 03-29 04:21: 11 Yes 10mg 10 mg, Slow IV Push, Q2HPRN, Starting on 03/28/23 at 2321, Until Discontinu ed, Routine, DBP=>100; SBP=>160 [facility] morpHINE (2 mg/mL) injection 2 mg 03-29 04:21: 04 03-31 22:14 :59 No 2mg 2 mg, Slow IV Push, Q2HPRN, Starting on Thu03/28/23 at 2321, Until Thu03/31/23 at 1714, Routine, Pain (scale 7-10) [facility] acetaminoph en (TYLENOL) tablet 650 mg 03-29 04:20: 53 03-31 22:14 :59 No 650mg 650 mg, Oral, Q6HPRN, Starting on Thu03/28/23 at 2320, Until Thu03/31/23 at 1714, Routine, Pain (scale 4-6), Pain (scale 1-3), Temp > 38 C [facility] ondansetron (ZOFRAN (PF)) injection 4 mg 03-29 04:16: 35 Yes 4mg 4 mg, Slow IV Push, Q6HPRN, Starting on 03/28/23 at 2316, Until Discontinu ed, Routine, Nausea and Vomiting (N/V) [facility] polyethylen e glycol 3350 powder 17 g 03-29 04:16: 35 Yes 17g 17 g, Oral, PRN - SEE INSTRUCTIO NS, Starting on 03/28/23 at 2316, Until Discontinu ed, Routine, Constipati on [facility] ondansetron (ZOFRAN (PF)) injection 4 mg 03-29 04:16: 35 Yes 4mg 4 mg, Slow IV Push, Q6HPRN, Starting on 03/28/23 at 2316, Until Discontinu ed, Routine, Nausea and Vomiting (N/V) [facility] polyethylen e glycol 3350 powder 17 g 03-29 04:16: 35 04-03 18:43 :37 No 17g 17 g, Oral, PRN - SEE INSTRUCTIO NS, Starting on 8/12/23 at 2316, Until Thu04/03/23 at 1343, Routine, Constipati on [facility] acetaminoph en-codeine 300-60 mg tablet 8 00:00: 00 Yes [facility] acetaminoph en-codeine 300-60 mg tablet 0 03-18 00:00: 00 Yes [facility] acetaminoph en-codeine 300-60 mg tablet 03-18 00:00: 00 04-09 00:00 :00 No [facility] acetaminoph en-codeine 300-60 mg tablet 03-18 00:00: 00 04-09 00:00 :00 No [facility] tolterodine LA 2 mg 24 hr capsule 0 03-12 00:00: 00 Yes [facility] traMADoL 50 mg tablet 0 03-12 00:00: 00 Yes [facility] meloxicam 7.5 mg tablet 0 03-12 00:00: 00 Yes [facility] tolterodine LA 2 mg 24 hr capsule 0 03-12 00:00: 00 Yes [facility] traMADoL 50 mg tablet 0 03-12 00:00: 00 Yes [facility] meloxicam 7.5 mg tablet 0 03-12 00:00: 00 Yes [facility] tolterodine LA 2 mg 24 hr capsule 0 03-12 00:00: 00 Yes [facility] traMADoL 50 mg tablet 0 03-12 00:00: 00 Yes [facility] meloxicam 7.5 mg tablet 0 03-12 00:00: 00 Yes [facility] tolterodine LA 2 mg 24 hr capsule 0 03-12 00:00: 00 Yes [facility] meloxicam 7.5 mg tablet 0 03-12 00:00: 00 Yes [facility] tolterodine LA 2 mg 24 hr capsule 2022-0 03-12 00:00: 00 Yes [facility] traMADoL 50 mg tablet 0 03-12 00:00: 00 Yes [facility] traMADoL 50 mg tablet 0 03-12 00:00: 00 Yes [facility] meloxicam 7.5 mg tablet 03-12 00:00: 00 Yes [facility] tolterodine LA 2 mg 24 hr capsule 0 03-12 00:00: 00 Yes [facility] traMADoL 50 mg tablet 03-12 00:00: 00 Yes [facility] meloxicam 7.5 mg tablet 03-12 00:00: 00 Yes [facility] tolterodine LA 2 mg 24 hr capsule 03-12 00:00: 00 Yes [facility] traMADoL 50 mg tablet 03-12 00:00: 00 Yes [facility] meloxicam 7.5 mg tablet 03-12 00:00: 00 Yes [facility] tolterodine LA 2 mg 24 hr capsule 03-12 00:00: 00 Yes [facility] traMADoL 50 mg tablet 03-12 00:00: 00 Yes [facility] meloxicam 7.5 mg tablet 03-12 00:00: 00 Yes [facility] tolterodine LA 2 mg 24 hr capsule 03-12 00:00: 00 Yes [facility] traMADoL 50 mg tablet 03-12 00:00: 00 Yes [facility] meloxicam 7.5 mg tablet 03-12 00:00: 00 Yes [facility] tolterodine LA 2 mg 24 hr capsule 03-12 00:00: 00 Yes [facility] traMADoL 50 mg tablet 03-12 00:00: 00 Yes [facility] meloxicam 7.5 mg tablet 0 03-12 00:00: 00 Yes [facility] tolterodine LA 2 mg 24 hr capsule 0 03-12 00:00: 00 Yes [facility] traMADoL 50 mg tablet 2022-0 03-12 00:00: 00 Yes [facility] meloxicam 7.5 mg tablet 2022-0 03-12 00:00: 00 Yes [facility] omeprazole 20 mg capsule 2022-0 02-26 00:00: 00 Yes [facility] omeprazole 20 mg capsule 2022-0 02-26 00:00: 00 Yes [facility] omeprazole 20 mg capsule 2022-0 02-26 00:00: 00 Yes [facility] omeprazole 20 mg capsule 2022-0 02-26 00:00: 00 Yes [facility] omeprazole 20 mg capsule 0 02-26 00:00: 00 Yes [facility] omeprazole 20 mg capsule 2022-0 02-26 00:00: 00 Yes [facility] omeprazole 20 mg capsule 2022-0 02-26 00:00: 00 Yes [facility] omeprazole 20 mg capsule 0 02-26 00:00: 00 Yes [facility] omeprazole 20 mg capsule 0 02-26 00:00: 00 Yes [facility] omeprazole 20 mg capsule 0 02-26 00:00: 00 Yes [facility] omeprazole 20 mg capsule 0 02-26 00:00: 00 Yes [facility] amLODIPine 5 mg tablet 2022-0 - 00:00: 00 Yes [facility] amLODIPine 5 mg tablet 2022-0 - 00:00: 00 Yes [facility] amLODIPine 5 mg tablet 3-0 - 00:00: 00 Yes [facility] amLODIPine 5 mg tablet 2022-0 - 00:00: 00 Yes [facility] amLODIPine 5 mg tablet 2022-0 - 00:00: 00 Yes [facility] amLODIPine 5 mg tablet 2022-0 -10 00:00: 00 Yes [facility] amLODIPine 5 mg tablet 0 -10 00:00: 00 Yes [facility] amLODIPine 5 mg tablet 2022-0 -10 00:00: 00 Yes [facility] amLODIPine 5 mg tablet 2022-0 -10 00:00: 00 Yes [facility] amLODIPine 5 mg tablet 0 -10 00:00: 00 Yes [facility] amLODIPine 5 mg tablet 0 - 00:00: 00 Yes [facility] BD INSULIN PEN NEEDLE UF 31 gauge x 5/16" Ndle 0 - 00:00: 00 Yes [facility] BASAGLAR KWIKPEN U-100 INSULIN 100 unit/mL (3 mL) injection 0 02-15 00:00: 00 Yes [facility] BD INSULIN PEN NEEDLE UF 31 gauge x 5/16" Ndle 0 - 00:00: 00 Yes [facility] BASAGLAR KWIKPEN U-100 INSULIN 100 unit/mL (3 mL) injection 0 02-15 00:00: 00 Yes [facility] BD INSULIN PEN NEEDLE UF 31 gauge x 5/16" Ndle 0 - 00:00: 00 Yes [facility] BASAGLAR KWIKPEN U-100 INSULIN 100 unit/mL (3 mL) injection 0 02-15 00:00: 00 Yes [facility] BASAGLAR KWIKPEN U-100 INSULIN 100 unit/mL (3 mL) injection 0 - 00:00: 00 Yes [facility] BD INSULIN PEN NEEDLE UF 31 gauge x 5/16" Ndle 0 7- 00:00: 00 Yes [facility] BD INSULIN PEN NEEDLE UF 31 gauge x 5/16" Ndle 0 7- 00:00: 00 Yes [facility] [facility] BASAGLAR KWIKPEN U-100 INSULIN 100 unit/mL (3 mL) injection 0 - 00:00: 00 Yes [facility] BD INSULIN PEN NEEDLE UF 31 gauge x 5/16" Ndle 0 7- 00:00: 00 Yes [facility] BASAGLAR KWIKPEN U-100 INSULIN 100 unit/mL (3 mL) injection 0 - 00:00: 00 Yes [facility] BD INSULIN PEN NEEDLE UF 31 gauge x 5/16" Ndle 0 7- 00:00: 00 Yes [facility] BASAGLAR KWIKPEN U-100 INSULIN 100 unit/mL (3 mL) injection 02-15 00:00: 00 Yes [facility] BD INSULIN PEN NEEDLE UF 31 gauge x 5/16" Ndle 0 - 00:00: 00 Yes [facility] BASAGLAR KWIKPEN U-100 INSULIN 100 unit/mL (3 mL) injection 0 02-15 00:00: 00 Yes [facility] BD INSULIN PEN NEEDLE UF 31 gauge x 5/16" Ndle - 00:00: 00 Yes [facility] BASAGLAR KWIKPEN U-100 INSULIN 100 unit/mL (3 mL) injection 02-15 00:00: 00 Yes [facility] BD INSULIN PEN NEEDLE UF 31 gauge x 5/16" Ndle - 00:00: 00 Yes [facility] BASAGLAR KWIKPEN U-100 INSULIN 100 unit/mL (3 mL) injection 0 - 00:00: 00 Yes [facility] BD INSULIN PEN NEEDLE UF 31 gauge x 5/16" Ndle - 00:00: 00 Yes [facility] BASAGLAR KWIKPEN U-100 INSULIN 100 unit/mL (3 mL) injection 0 - 00:00: 00 Yes [facility] pregabalin 50 mg capsule 2022-0 - 00:00: 00 Yes [facility] pregabalin 50 mg capsule 2022-0 6- 00:00: 00 Yes [facility] pregabalin 50 mg capsule 2022-0 - 00:00: 00 Yes [facility] pregabalin 50 mg capsule 3-0 02-09 00:00: 00 Yes [facility] pregabalin 50 mg capsule 3-0 02-09 00:00: 00 Yes [facility] pregabalin 50 mg capsule 3-0 02-09 00:00: 00 Yes [facility] pregabalin 50 mg capsule 3-0 02-09 00:00: 00 Yes [facility] pregabalin 50 mg capsule 3-0 02-09 00:00: 00 Yes [facility] pregabalin 50 mg capsule 3-0 02-09 00:00: 00 Yes [facility] pregabalin 50 mg capsule 3-0 02-09 00:00: 00 Yes [facility] pregabalin 50 mg capsule 3-0 02-09 00:00: 00 Yes [facility] losartan 50 mg tablet 2022-0 02-04 00:00: 00 Yes [facility] JANUVIA 50 mg tablet 3-0 02-04 00:00: 00 Yes [facility] losartan 50 mg tablet 3-0 02-04 00:00: 00 Yes [facility] JANUVIA 50 mg tablet 3-0 02-04 00:00: 00 Yes [facility] losartan 50 mg tablet 3-0 02-04 00:00: 00 Yes [facility] JANUVIA 50 mg tablet 3-0 02-04 00:00: 00 Yes [facility] losartan 50 mg tablet 3-0 02-04 00:00: 00 Yes [facility] JANUVIA 50 mg tablet 3-0 02-04 00:00: 00 Yes [facility] losartan 50 mg tablet 3-0 02-04 00:00: 00 Yes [facility] JANUVIA 50 mg tablet 3-0 02-04 00:00: 00 Yes [facility] losartan 50 mg tablet 3-0 02-04 00:00: 00 Yes [facility] JANUVIA 50 mg tablet 3-0 02-04 00:00: 00 Yes [facility] losartan 50 mg tablet 2022-0 02-04 00:00: 00 Yes [facility] JANUVIA 50 mg tablet 2022-0 02-04 00:00: 00 Yes [facility] losartan 50 mg tablet 2022-0 02-04 00:00: 00 Yes [facility] JANUVIA 50 mg tablet 2022-0 02-04 00:00: 00 Yes [facility] losartan 50 mg tablet 2022-0 02-04 00:00: 00 Yes [facility] JANUVIA 50 mg tablet 2022-0 02-04 00:00: 00 Yes [facility] losartan 50 mg tablet 2022-0 02-04 00:00: 00 Yes [facility] JANUVIA 50 mg tablet 2022-0 02-04 00:00: 00 Yes [facility] losartan 50 mg tablet 2022-0 02-04 00:00: 00 Yes [facility] JANUVIA 50 mg tablet 0 02-04 00:00: 00 Yes [facility] Vital Signs Vital Name Observation Time Observation Value Comments S [facility] Systolic blood pressure 2023-04-14 17:00:00 122 mm[Hg] [facility] Diastolic blood pressure 2023-04-14 17:00:00 50 mm[Hg] [facility] Heart rate 2023-04-14 17:00:00 84 /min [facility] Body temperature 2023-04-14 17:00:[address] [facility] Respiratory rate 2023-04-14 17:00:00 20 /min [facility] Oxygen saturation in Arterial blood by Pulse oximetry 2023-04-14 17:00:00 95 /min [facility] Body weight 2023-04-08 09:11:00 89.495 kg [facility] BMI 2023-04-08 09:11:00 34.95 kg/m2 [facility] Body height 2023-03-28 23:12:00 160 cm [facility] Systolic blood pressure 2023-04-08 09:11:00 134 mm[Hg] [facility] Diastolic blood pressure 2023-04-08 09:11:00 75 mm[Hg] [facility] Heart rate 2023-04-08 09:11:00 110 /min [facility] Body temperature 2023-04-08 09:11:[address] [facility] Respiratory rate 2023-04-08 09:11:00 18 /min [facility] Body weight 2023-04-08 09:11:00 89.495 kg [facility] BMI 2023-04-08 09:11:00 34.95 kg/m2 [facility] Oxygen saturation in Arterial blood by Pulse oximetry 2023-04-08 09:11:00 90 /min [facility] Body height 2023-03-28 23:12:00 160 cm [facility] Systolic blood pressure 2023-04-03 12:37:00 137 mm[Hg] [facility] Diastolic blood pressure 2023-04-03 12:37:00 73 mm[Hg] [facility] Heart rate 2023-04-03 12:37:00 74 /min [facility] Body temperature 2023-04-03 12:37:[address] [facility] Oxygen saturation in Arterial blood by Pulse oximetry 2023-04-03 12:37:00 94 /min [facility] Respiratory rate 2023-04-03 09:00:00 17 /min [facility] Body height 2023-03-28 23:12:00 160 cm [facility] Body weight 2023-03-28 23:12:00 90.266 kg [facility] BMI 2023-03-28 23:12:00 35.25 kg/m2 [facility] Systolic blood pressure 2023-03-31 17:30:00 130 mm[Hg] [facility] Diastolic blood pressure 2023-03-31 17:30:00 72 mm[Hg] [facility] Heart rate 2023-03-31 17:30:00 82 /min [facility] Body temperature 2023-03-31 17:30:[address] [facility] Respiratory rate 2023-03-31 17:30:00 20 /min [facility] Oxygen saturation in Arterial blood by Pulse oximetry 2023-03-31 17:30:00 93 /min [facility] Body weight 2023-03-28 23:12:00 90.266 kg [facility] BMI 2023-03-28 23:12:00 35.25 kg/m2 [facility] Body height 2023-03-28 23:12:00 160 cm [facility] Procedures Procedure Date / Time Performed Performing Clinician Source HOME HEALTH - OTHER 2023-06-02 05:01:00 Doctor U nassigned, [place] [facility] AUTHORIZATION FOR RELEASE OF PHI 2023-04-22 05:01:00 Doctor Unassigned, [place] [facility] CBC WITH DIFF 2023-04-14 17:07:00 [facility] 2023-04-14 17:02:00 Khai [facility] POCT GLUCOSE (AUTOMATED) 2023-04-14 12:28:00 Khai [facility] POCT GLUCOSE (AUTOMATED) 2023-04-14 01:15:00 Khai [facility] POCT GLUCOSE (AUTOMATED) 2023-04-13 21:59:00 Khai [facility] POCT GLUCOSE (AUTOMATED) 2023-04-13 16:17:00 Khai [facility] POCT GLUCOSE (AUTOMATED) 2023-04-13 12:51:00 Khai [facility] BASIC METABOLIC PANEL (NA, K, CL, CO2, GLUCOSE, BUN, CREATININE, CA) 2023-04-13 09:52:[address] [facility] CBC WITH DIFF 2023-04-13 09:52:[address] [facility] POCT GLUCOSE (AUTOMATED) 2023-04-13 00:59[facility]00 [facility]-12 22:53:[address] [facility] POCT GLUCOSE (AUTOMATED) 2023-04-12 20:49:[address] [facility] POCT GLUCOSE (AUTOMATED) 2023-04-12 17:05:00 Khai [facility] CBC WITH DIFF 2023-04-12 15:40:00 Montana Martinez [facility] XR CHEST 1 VW 2023-04-12 15:36:[address] [facility] POCT GLUCOSE (AUTOMATED) 2023-04-12 12:48:00 Khai [facility] POCT GLUCOSE (AUTOMATED) 2023-04-12 01:14:00 Khai [facility] POCT GLUCOSE (AUTOMATED) 2023-04-11 21:16:00 Khai [facility] POCT GLUCOSE (AUTOMATED) 2023-04-11 17:15:00 Khai [facility] POCT GLUCOSE (AUTOMATED) 2023-04-11 13:08:00 Khai [facility] BASIC METABOLIC PANEL (NA, K, CL, CO2, GLUCOSE, BUN, CREATININE, CA) 2023-04-11 10:52:[address] [facility] CBC WITH DIFF 2023-04-11 10:52:[address] [facility] [facility] POCT GLUCOSE (AUTOMATED) 2023-04-11 01:40:00 Khai [facility] POCT GLUCOSE (AUTOMATED) 2023-04-10 23:33:00 Khai [facility] POCT GLUCOSE (AUTOMATED) 2023-04-10 17:42:00 Khai [facility] POCT GLUCOSE (AUTOMATED) 2023-04-10 14:59:00 Khai [facility] PHOSPHORUS 2023-04-10 11:41:00 Clyde Akers [facility] MAGNESIUM 2023-04-10 11:41:00 Clyde Akers [facility] BASIC METABOLIC PANEL (NA, K, CL, CO2, GLUCOSE, BUN, CREATININE, CA) 2023-04-10 11:41:[address] [facility] CBC WITH DIFF 2023-04-10 11:40:00 Clyde Akers [facility] POCT GLUCOSE (AUTOMATED) 2023-04-10 01:11:00 Khai [facility] POCT GLUCOSE (AUTOMATED) 2023-04-09 20:41:00 Khai [facility] POCT GLUCOSE (AUTOMATED) 2023-04-09 20:41:00 Khai [facility] POCT GLUCOSE (AUTOMATED) 2023-04-09 16:44:00 Khai [facility] POCT GLUCOSE (AUTOMATED) 2023-04-09 16:44:00 Khai [facility] POCT GLUCOSE (AUTOMATED) 2023-04-09 12:56:00 Khai [facility] POCT GLUCOSE (AUTOMATED) 2023-04-09 12:56:00 Khai [facility] CT CERVICAL SPINE WO CONTRAST 2023-04-09 11:45:[address] [facility] POCT GLUCOSE (AUTOMATED) 2023-04-09 02:01:00 Khai [facility] POCT GLUCOSE (AUTOMATED) 2023-04-09 02:01:00 Khai [facility] POCT GLUCOSE (AUTOMATED) 2023-04-08 22:15:00 Khai [facility] POCT GLUCOSE (AUTOMATED) 2023-04-08 22:15:00 Khai [facility] POCT GLUCOSE (AUTOMATED) 2023-04-08 21:17:00 Khai [facility] POCT GLUCOSE (AUTOMATED) 2023-04-08 21:17:00 Khai [facility] XR CERVICAL SPINE 1 VW 2023-04-08 18:12:57 Khai [facility] XR CERVICAL SPINE 1 VW 2023-04-08 18:12:57 Khai [facility] FL TIME OR (NON-REPORTABLE) 2023-04-08 17:00:[address] [facility] FL TIME OR (NON-REPORTABLE) 2023-04-08 17:00:[address] [facility] XR CERVICAL SPINE 1 VW 2023-04-08 15:22:45 [facility]W 2023-04-08 15:22:45 Khai [facility] URINALYSIS 2023-04-08 14:28:00 Khai [facility] URINE CULTURE 2023-04-08 14:28:00 Khai [facility] URINALYSIS 2023-04-08 14:28:00 Khai [facility] URINE CULTURE 2023-04-08 14:28:00 Khai [facility] POSTERIOR CERVICAL FUSION 2023-04-08 13:40:00 Khai [facility] POSTERIOR CERVICAL FUSION 2023-04-08 13:40:00 Khai [facility] POCT GLUCOSE (AUTOMATED) 2023-04-08 12:52:00 Khai [facility] POCT GLUCOSE (AUTOMATED) 2023-04-08 12:52:00 Khai [facility] BASIC METABOLIC PANEL (NA, K, CL, CO2, GLUCOSE, BUN, CREATININE, CA) 2023-04-08 10:31:00 Vikram Villanueva [facility] CBC WITH DIFF 2023-04-08 10:31:00 [facility] PROTHROMBIN TIME / INR 2023-04-08 10:31:00 Vikram Villanueva [facility] ACTIVATED PARTIAL THRMPLAS GYPSY 2023-04-08 10:31:00 Vikarm Villanueva [facility] HB ABO GROUPING 2023-04-08 10:31:00 Josefa Villanueva [facility] BASIC METABOLIC PANEL (NA, K, CL, CO2, GLUCOSE, BUN, CREATININE, CA) 2023-04-08 10:31:00 Vikram Villanueva [facility] CBC WITH DIFF 2023-04-08 10:31:00 Josefa Villanueva [facility] PROTHROMBIN TIME / INR 2023-04-08 10:31:00 Vikram Villanueva [facility] ACTIVATED PARTIAL THRMPLAS GYPSY 2023-04-08 10:31:00 Vikram Villanueva [facility] HB ABO GROUPING 2023-04-08 10:31:00 Josefa Villanueva [facility] POCT GLUCOSE (AUTOMATED) 2023-04-08 01:59:00 Khai [facility] POCT GLUCOSE (AUTOMATED) 2023-04-08 01:59:00 Khai [facility] POCT GLUCOSE (AUTOMATED) 2023-04-07 20:54:00 Khai [facility] POCT GLUCOSE (AUTOMATED) 2023-04-07 20:54:00 Khai [facility] POCT GLUCOSE (AUTOMATED) 2023-04-07 16:41:00 Khai [facility] POCT GLUCOSE (AUTOMATED) 2023-04-07 16:41:00 Khai [facility] POCT GLUCOSE (AUTOMATED) 2023-04-07 13:16:00 Khai [facility] POCT GLUCOSE (AUTOMATED) 2023-04-07 13:16:00 Khai [facility] BASIC METABOLIC PANEL (NA, K, CL, CO2, GLUCOSE, BUN, CREATININE, CA) 2023-04-07 08:55:[address] [facility] CBC WITH DIFF 2023-04-07 08:55:[address] [facility] BASIC METABOLIC PANEL (NA, K, CL, CO2, GLUCOSE, BUN, CREATININE, CA) 2023-04-07 08:55:[address] [facility] CBC WITH DIFF 2023-04-07 08:55:[address] [facility] POCT GLUCOSE (AUTOMATED) 2023-04-07 02:02:00 Khai [facility] POCT GLUCOSE (AUTOMATED) 2023-04-07 02:02:00 Khai [facility] POCT GLUCOSE (AUTOMATED) 2023-04-06 20:49:00 Khai [facility] POCT GLUCOSE (AUTOMATED) 2023-04-06 20:49:00 Khai [facility] POCT GLUCOSE (AUTOMATED) 2023-04-06 16:58:00 Khai [facility] POCT GLUCOSE (AUTOMATED) 2023-04-06 16:58:00 Khai [facility] POCT GLUCOSE (AUTOMATED) 2023-04-06 16:58:00 Khai [facility] POCT GLUCOSE (AUTOMATED) 2023-04-06 12:34:00 Khai [facility] POCT GLUCOSE (AUTOMATED) 2023-04-06 12:34:00 Khai [facility] POCT GLUCOSE (AUTOMATED) 2023-04-06 12:34:00 Khai [facility] POCT GLUCOSE (AUTOMATED) 2023-04-06 00:40:00 Khai [facility] POCT GLUCOSE (AUTOMATED) 2023-04-06 00:40:00 Khai [facility] POCT GLUCOSE (AUTOMATED) 2023-04-06 00:40:00 Khai [facility] POCT GLUCOSE (AUTOMATED) 2023-04-05 21:25:00 Khai [facility] POCT GLUCOSE (AUTOMATED) 2023-04-05 21:25:00 Khai [facility] POCT GLUCOSE (AUTOMATED) 2023-04-05 21:25:00 Khai [facility] POCT GLUCOSE (AUTOMATED) 2023-04-05 17:00:00 Khai [facility] POCT GLUCOSE (AUTOMATED) 2023-04-05 17:00:00 Khai [facility] POCT GLUCOSE (AUTOMATED) 2023-04-05 17:00:00 Khai [facility] POCT GLUCOSE (AUTOMATED) 2023-04-05 13:04:00 Khai [facility] POCT GLUCOSE (AUTOMATED) 2023-04-05 13:04:00 Khai [facility] POCT GLUCOSE (AUTOMATED) 2023-04-05 13:04:00 Khai [facility] POCT GLUCOSE (AUTOMATED) 2023-04-05 00:43:00 Khai [facility] POCT GLUCOSE (AUTOMATED) 2023-04-05 00:43:00 Khai [facility] POCT GLUCOSE (AUTOMATED) 2023-04-05 00:43:00 Khai [facility] POCT GLUCOSE (AUTOMATED) 2023-04-04 22:43:00 Khai [facility] POCT GLUCOSE (AUTOMATED) 2023-04-04 22:43:00 Khai [facility] POCT GLUCOSE (AUTOMATED) 2023-04-04 22:43:00 Khai [facility] POCT GLUCOSE (AUTOMATED) 2023-04-04 17:13:00 Khai [facility] POCT GLUCOSE (AUTOMATED) 2023-04-04 17:13:00 Khai [facility] POCT GLUCOSE (AUTOMATED) 2023-04-04 17:13:00 Khai [facility] POCT GLUCOSE (AUTOMATED) 2023-04-04 13:02:00 Khai [facility] POCT GLUCOSE (AUTOMATED) 2023-04-04 13:02:00 Khai [facility] POCT GLUCOSE (AUTOMATED) 2023-04-04 13:02:00 Khai [facility] POCT GLUCOSE (AUTOMATED) 2023-04-03 20:20:00 Khai [facility] POCT GLUCOSE (AUTOMATED) 2023-04-03 20:20:00 Khai [facility] POCT GLUCOSE (AUTOMATED) 2023-04-03 20:20:00 Khai [facility] MAGNETIC RESONANCE IMAGING UNDER ANESTHESIA 2023-04-03 20:00:[address] [facility] MAGNETIC RESONANCE IMAGING UNDER ANESTHESIA 2023-04-03 20:00:[address] [facility] POCT GLUCOSE (AUTOMATED) 2023-04-03 17:39:00 Khai [facility] POCT GLUCOSE (AUTOMATED) 2023-04-03 17:39:00 [facility] 2023-04-03 17:39:00 Khai [facility] MR LUMBAR SPINE W WO CONTRAST 2023-04-03 17:09[facility]AST 2023-04-03 17:09:44 Alimi, [facility] MR LUMBAR SPINE W WO CONTRAST 2023-04-03 17:09:44 Alimi, [facility] MR THORACIC SPINE W WO CONTRAST 2023-04-03 17:07:19 Alimi [facility] MR THORACIC SPINE W WO CONTRAST 2023-04-03 17:07:19 Alimi, [facility] MR THORACIC SPINE W WO CONTRAST 2023-04-03 17:07:19 Alimi, [facility] MR CERVICAL SPINE W WO CONTRAST 2023-04-03 17:00:40 [facility] W WO CONTRAST 2023-04-03 17:00:40 Alimi, [facility] MR CERVICAL SPINE W WO CONTRAST 2023-04-03 17:00:40 Alimi [facility] POCT GLUCOSE (AUTOMATED) 2023-04-03 13:05:00 Khai [facility] POCT GLUCOSE (AUTOMATED) 2023-04-03 13:05:00 Khai [facility] POCT GLUCOSE (AUTOMATED) 2023-04-03 13:05:[address] [facility] BASIC METABOLIC PANEL (NA, K, CL, CO2, GLUCOSE, BUN, CREATININE, CA) 2023-04-03 09:38:00 Aniceto Nolan [facility] CBC WITH DIFF 2023-04-03 09:38:00 Aniceto Nolan [facility] BASIC METABOLIC PANEL (NA, K, CL, CO2, GLUCOSE, BUN, CREATININE, CA) 2023-04-03 09:38:00 [facility] CBC WITH DIFF 2023-04-03 09:38:00 Aniceto Nolan [facility] BASIC METABOLIC PANEL (NA, K, CL, CO2, GLUCOSE, BUN, CREATININE, CA) 2023-04-03 09:38:00 Aniceto Nolan [facility] CBC WITH DIFF 2023-04-03 09:38:00 Aniceto [facility] POCT GLUCOSE (AUTOMATED) 2023-04-03 02:57:00 Khai [facility] POCT GLUCOSE (AUTOMATED) 2023-04-03 02:57:00 Khai [facility] POCT GLUCOSE (AUTOMATED) 2023-04-03 02:57:00 Khai [facility] POCT GLUCOSE (AUTOMATED) 2023-04-02 21:55:00 Khai [facility] POCT GLUCOSE (AUTOMATED) 2023-04-02 21:55:00 Khai [facility] POCT GLUCOSE (AUTOMATED) 2023-04-02 21:55:00 Khai [facility] POCT GLUCOSE (AUTOMATED) 2023-04-02 17:03:00 Khai [facility] POCT GLUCOSE (AUTOMATED) 2023-04-02 17:03:00 Khai [facility] POCT GLUCOSE (AUTOMATED) 2023-04-02 17:03:00 Khai [facility] POCT GLUCOSE (AUTOMATED) 2023-04-02 12:45:00 Khai [facility] POCT GLUCOSE (AUTOMATED) 2023-04-02 12:45:00 Khai [facility] POCT GLUCOSE (AUTOMATED) 2023-04-02 12:45:00 Khai, [facility] POCT GLUCOSE (AUTOMATED) 2023-04-02 02:50:00 Khai [facility] POCT GLUCOSE (AUTOMATED) 2023-04-02 02:50:00 Khai [facility] POCT GLUCOSE (AUTOMATED) 2023-04-02 02:50:00 Khai [facility] POCT GLUCOSE (AUTOMATED) 2023-04-01 21:00:00 Khai [facility] POCT GLUCOSE (AUTOMATED) 2023-04-01 21:00:00 Khai [facility] POCT GLUCOSE (AUTOMATED) 2023-04-01 21:00:00 Khai [facility] POCT GLUCOSE (AUTOMATED) 2023-04-01 17:18:00 Khai [facility] POCT GLUCOSE (AUTOMATED) 2023-04-01 17:18:00 Khai [facility] POCT GLUCOSE (AUTOMATED) 2023-04-01 17:18:00 Khai [facility] POCT GLUCOSE (AUTOMATED) 2023-04-01 17:18:00 Khai [facility] POCT GLUCOSE (AUTOMATED) 2023-04-01 13:52:00 Khai [facility] POCT GLUCOSE (AUTOMATED) 2023-04-01 13:52:00 Khai [facility] POCT GLUCOSE (AUTOMATED) 2023-04-01 13:52:00 Khai [facility] POCT GLUCOSE (AUTOMATED) 2023-04-01 13:52:00 Khai [facility] XR CERVICAL SPINE 2 VW 2023-04-01 12:10:59 Vikram Villanueva [facility] XR CERVICAL SPINE 2 VW 2023-04-01 12:10:59 Vikram Villanueva [facility] XR CERVICAL SPINE 2 VW 2023-04-01 12:10:59 Vikram Villanueva [facility] XR CERVICAL SPINE 2 VW 2023-04-01 12:10:59 Vikram Villanueva [facility] BASIC METABOLIC PANEL (NA, K, CL, CO2, GLUCOSE, BUN, CREATININE, CA) 2023-04-01 08:21:00 Vikram Villanueva [facility] CBC WITH DIFF 2023-04-01 08:21:00 [facility] (NA, K, CL, CO2, GLUCOSE, BUN, CREATININE, CA) 2023-04-01 08:21:00 Vikram Villanueva [facility] CBC WITH DIFF 2023-04-01 08:21:00 Josefa Villanueva [facility] BASIC METABOLIC PANEL (NA, K, CL, CO2, GLUCOSE, BUN, CREATININE, CA) 2023-04-01 08:21:00 [facility] 2023-04-01 08:21:00 Josefa Villanueva [facility] BASIC METABOLIC PANEL (NA, K, CL, CO2, GLUCOSE, BUN, CREATININE, CA) 2023-04-01 08:21:00 [facility] CBC WITH DIFF 2023-04-01 08:21:00 Josefa Villanueva [facility] POCT GLUCOSE (AUTOMATED) 2023-04-01 01:25:00 Khai [facility] POCT GLUCOSE (AUTOMATED) 2023-04-01 01:25:00 Khai [facility] POCT GLUCOSE (AUTOMATED) 2023-04-01 01:25:00 Khai [facility] POCT GLUCOSE (AUTOMATED) 2023-04-01 01:25:00 Khai [facility] POCT GLUCOSE (AUTOMATED) 2023-03-31 22:32:00 Khai [facility] POCT GLUCOSE (AUTOMATED) 2023-03-31 22:32:00 Khai [facility] POCT GLUCOSE (AUTOMATED) 2023-03-31 22:32:00 Khai [facility] POCT GLUCOSE (AUTOMATED) 2023-03-31 22:32:00 [facility] 2023-03-31 22:00:00 Khai [facility] XR CERVICAL SPINE 1 2023-03-31 22:00:00 Khai [facility] XR CERVICAL SPINE 1 2023-03-31 22:00:00 [facility] 1 2023-03-31 22:00:00 Khai [facility] XR CERVICAL SPINE 1 2023-03-31 21:30:00 Haywo rth, Aide [facility] XR CERVICAL SPINE 1 2023-03-31 21:30:00 Haywo rth, Aide [facility] XR CERVICAL SPINE 1 2023-03-31 21:30:00 Haywo rth, Aide [facility] XR CERVICAL SPINE 1 2023-03-31 21:30:00 Haywo rth, Aide [facility] SURGICAL PATHOLOGY EXAM 2023-03-31 20:17:00 [facility] 2023-03-31 20:17:00 [facility] 2023-03-31 20:17:00 [facility] 2023-03-31 20:17:00 Jacek Ridley [facility] ABG+COOX+NA+K+GLU+CA2+ 2023-03-31 20:12:00 Khai [facility] ABG+COOX+NA+K+GLU+CA2+ 2023-03-31 20:12:00 Khai [facility] ABG+COOX+NA+K+GLU+CA2+ 2023-03-31 20:12:00 Khai [facility] ABG+COOX+NA+K+GLU+CA2+ 2023-03-31 20:12:00 Khai [facility] XR CERVICAL SPINE 1 VW 2023-03-31 19:42:00 Haywo rth, Aide [facility] XR CERVICAL SPINE 1 VW 2023-03-31 19:42:00 Haywo rth, Aide [facility] XR CERVICAL SPINE 1 VW 2023-03-31 19:42:00 Haywo rth, Aide [facility] XR CERVICAL SPINE 1 VW 2023-03-31 19:42:00 Haywo rth, Aide [facility] XR CERVICAL SPINE 1 VW 2023-03-31 19:30:00 Haywo rth, Aide [facility] XR CERVICAL SPINE 1 VW 2023-03-31 19:30:00 Haywo rth, Aide [facility] XR CERVICAL SPINE 1 VW 2023-03-31 19:30:00 Haywo rth, Aide [facility] XR CERVICAL SPINE 1 VW 2023-03-31 19:30:00 Haywo rth, Aide [facility] XR CERVICAL SPINE 1 VW 2023-03-31 19:15:00 Haywo rth, Aide [facility] XR CERVICAL SPINE 1 VW 2023-03-31 19:15:00 Haywo rth, Aide [facility] XR CERVICAL SPINE 1 VW 2023-03-31 19:15:00 Haywo rth, Aide [facility] XR CERVICAL SPINE 1 VW 2023-03-31 19:15:00 Haywo rth, Aide [facility] ANTERIOR CORPECTOMY 2023-03-31 18:13:00 Khai, Natalie U [facility] ANTERIOR CORPECTOMY 2023-03-31 18:13:00 Khai, Natalie U [facility] POCT GLUCOSE (AUTOMATED) 2023-03-31 17:28:[address] [facility] POCT GLUCOSE (AUTOMATED) 2023-03-31 17:28:[address] [facility] POCT GLUCOSE (AUTOMATED) 2023-03-31 17:28:[address] [facility] POCT GLUCOSE (AUTOMATED) 2023-03-31 17:28:[address] [facility] POCT GLUCOSE (AUTOMATED) 2023-03-31 13:15:[address] [facility] POCT GLUCOSE (AUTOMATED) 2023-03-31 13:15:[address] [facility] POCT GLUCOSE (AUTOMATED) 2023-03-31 13:15:[address] [facility] POCT GLUCOSE (AUTOMATED) 2023-03-31 13:15:[address] [facility] BASIC METABOLIC PANEL (NA, K, CL, CO2, GLUCOSE, BUN, CREATININE, CA) 2023-03-31 08:30:00 Montana Martinez [facility] CBC WITH DIFF 2023-03-31 08:30:00 Montana Martinez [facility] PROTHROMBIN TIME / INR 2023-03-31 08:30:00 Montana Martinez [facility] ACTIVATED PARTIAL THRMPLAS GYPSY 2023-03-31 08:30:00 Montana Martinez [facility] BASIC METABOLIC PANEL (NA, K, CL, CO2, GLUCOSE, BUN, CREATININE, CA) 2023-03-31 08:30:00 Montana Martinez [facility] CBC WITH DIFF 2023-03-31 08:30:00 Montana Martinez [facility] PROTHROMBIN TIME / INR 2023-03-31 08:30[facility]00 [facility] GYPSY 2023-03-31 08:30:00 Montana Martinez [facility] BASIC METABOLIC PANEL (NA, K, CL, CO2, GLUCOSE, BUN, CREATININE, CA) 2023-03-31 08:30:00 Montana Martinez [facility] CBC WITH DIFF 2023-03-31 08:30:00 Montana Martinez U [facility] PROTHROMBIN TIME / INR 2023-03-31 08:30:00 Martinez, [facility] ACTIVATED PARTIAL THRMPLAS GYPSY 2023-03-31 08:30:00 Enrique [facility] BASIC METABOLIC PANEL (NA, K, CL, CO2, GLUCOSE, BUN, CREATININE, CA) 2023-03-31 08:30:00 Montana Martinez [facility] CBC WITH DIFF 2023-03-31 08:30:[address] [facility] 2023-03-31 08:30:[address] [facility] ACTIVATED PARTIAL THRMPLAS GYPSY 2023-03-31 08:30:00 [facility] (AUTOMATED) 2023-03-31 02:47:[address] [facility] POCT GLUCOSE (AUTOMATED) 2023-03-31 02:47:[address] [facility] POCT GLUCOSE (AUTOMATED) 2023-03-31 02:47:[address] [facility] POCT GLUCOSE (AUTOMATED) 2023-03-31 02:47:[address] [facility] POCT GLUCOSE (AUTOMATED) 2023-03-30 21:36:[address] [facility] POCT GLUCOSE (AUTOMATED) 2023-03-30 21:36:[address] [facility] POCT GLUCOSE (AUTOMATED) 2023-03-30 21:36:[address] [facility] POCT GLUCOSE (AUTOMATED) 2023-03-30 21:36:[address] [facility] POCT GLUCOSE (AUTOMATED) 2023-03-30 17:56:[address] [facility] POCT GLUCOSE (AUTOMATED) 2023-03-30 17:56:[address] [facility] POCT GLUCOSE (AUTOMATED) 2023-03-30 17:56:[address] [facility] POCT GLUCOSE (AUTOMATED) 2023-03-30 17:56:[address] [facility] MR THORACIC SPINE WO CONTRAST 2023-03-30 17:28:00 Enrique [facility] MR THORACIC SPINE WO CONTRAST 2023-03-30 17:28:00 Enrique [facility] MR THORACIC SPINE WO CONTRAST 2023-03-30 17:28:00 Enrique [facility] MR THORACIC SPINE WO CONTRAST 2023-03-30 17:28:00 Enrique [facility] POCT GLUCOSE (AUTOMATED) 2023-03-30 13:02:[address] [facility] POCT GLUCOSE (AUTOMATED) 2023-03-30 13:02:[address] [facility] POCT GLUCOSE (AUTOMATED) 2023-03-30 13:02:[address] [facility] POCT GLUCOSE (AUTOMATED) 2023-03-30 13:02:[address] [facility] BASIC METABOLIC PANEL (NA, K, CL, CO2, GLUCOSE, BUN, CREATININE, CA) 2023-03-30 09:45:00 [facility] 2023-03-30 09:45:00 [facility]OLIC PANEL (NA, K, CL, CO2, GLUCOSE, BUN, CREATININE, CA) 2023-03-30 09:45:00 [facility] 2023-03-30 09:45:00 Dipti Gilman [facility] BASIC METABOLIC PANEL (NA, K, CL, CO2, GLUCOSE, BUN, CREATININE, CA) 2023-03-30 09:45:00 [facility] 2023-03-30 09:45:00 [facility]IC METABOLIC PANEL (NA, K, CL, CO2, GLUCOSE, BUN, CREATININE, CA) 2023-03-30 09:45:00 [facility]FF 2023-03-30 09:45:00 Dipti Gilman [facility] POCT GLUCOSE (AUTOMATED) 2023-03-30 01:11:[address] [facility] POCT GLUCOSE (AUTOMATED) 2023-03-30 01:11:[address] [facility] POCT GLUCOSE (AUTOMATED) 2023-03-30 01:11:[address] [facility] POCT GLUCOSE (AUTOMATED) 2023-03-30 01:11:[address] [facility] POCT GLUCOSE (AUTOMATED) 2023-03-29 22:59:[address] [facility] POCT GLUCOSE (AUTOMATED) 2023-03-29 22:59:[address] [facility] POCT GLUCOSE (AUTOMATED) 2023-03-29 22:59:[address] [facility] POCT GLUCOSE (AUTOMATED) 2023-03-29 22:59:[address] [facility] MR CERVICAL SPINE WO CONTRAST 2023-03-29 21:19:29 [facility] CERVICAL SPINE WO CONTRAST 2023-03-29 21:19:[address] [facility] MR CERVICAL SPINE WO CONTRAST 2023-03-29 21:19:29 MorelandNolan [facility] MR CERVICAL SPINE WO CONTRAST 2023-03-29 21:19:[address] [facility] POCT GLUCOSE (AUTOMATED) 2023-03-29 17:46:[address] [facility] POCT GLUCOSE (AUTOMATED) 2023-03-29 17:46:[address] [facility] POCT GLUCOSE (AUTOMATED) 2023-03-29 17:46:[address] [facility] POCT GLUCOSE (AUTOMATED) 2023-03-29 17:46:[address] [facility] POCT GLUCOSE (AUTOMATED) 2023-03-29 15:51:[address] [facility] POCT GLUCOSE (AUTOMATED) 2023-03-29 15:51:[address] [facility] POCT GLUCOSE (AUTOMATED) 2023-03-29 15:51:[address] [facility] POCT GLUCOSE (AUTOMATED) 2023-03-29 15:51:[address] [facility] POCT GLUCOSE (AUTOMATED) 2023-03-29 13:16:[address] [facility] POCT GLUCOSE (AUTOMATED) 2023-03-29 13:16:[address] [facility] POCT GLUCOSE (AUTOMATED) 2023-03-29 13:16:[address] [facility] POCT GLUCOSE (AUTOMATED) 2023-03-29 13:16:[address] [facility] TROPONIN I 2023-03-29 11:20:[address] [facility] BASIC METABOLIC PANEL (NA, K, CL, CO2, GLUCOSE, BUN, CREATININE, CA) 2023-03-29 11:20:[address] [facility] N-TERMINAL PRO-BNP 2023-03-29 11:20:00 Dipti Gilman U [facility] TROPONIN I 2023-03-29 11:20:[address] [facility] BASIC METABOLIC PANEL (NA, K, CL, CO2, GLUCOSE, BUN, CREATININE, CA) 2023-03-29 11:20:[address] [facility] N-TERMINAL PRO-BNP 2023-03-29 11:20:00 KhaiiDipti U [facility] TROPONIN I 2023-03-29 11:20:[address] [facility] BASIC METABOLIC PANEL (NA, K, CL, CO2, GLUCOSE, BUN, CREATININE, CA) 2023-03-29 11:20:[address] [facility] N-TERMINAL PRO-BNP 2023-03-29 11:20:00 KhaiiDipti U [facility] TROPONIN I 2023-03-29 11:20:[address] [facility] BASIC METABOLIC PANEL (NA, K, CL, CO2, GLUCOSE, BUN, CREATININE, CA) 2023-03-29 11:20:00 Moreland [facility] N-TERMINAL PRO-BNP 2023-03-29 11:20:00 Dipti Gilman [facility] CT ABDOMEN PELVIS W CONTRAST 2023-03-29 09:00:00 Moreland [facility] CT CERVICAL SPINE WO CONTRAST 2023-03-29 09:00:00 Moreland, [facility] CT THORAX W CONTRAST 2023-03-29 09:00:00 Villarr eal, [facility] CT ABDOMEN PELVIS W CONTRAST 2023-03-29 09:00:00 Moreland, [facility] CT CERVICAL SPINE WO CONTRAST 2023-03-29 09:00:00 Moreland, [facility] CT THORAX W CONTRAST 2023-03-29 09:00:00 Villarr eal, [facility] CT ABDOMEN PELVIS W CONTRAST 2023-03-29 09:00:00 Moreland, [facility] CT CERVICAL SPINE WO CONTRAST 2023-03-29 09:00:00 Moreland, [facility] CT THORAX W CONTRAST 2023-03-29 09:00:00 Villarr eal, [facility] CT ABDOMEN PELVIS W CONTRAST 2023-03-29 09:00:00 Moreland, [facility] CT CERVICAL SPINE WO CONTRAST 2023-03-29 09:00:00 Moreland, [facility] CT THORAX W CONTRAST 2023-03-29 09:00:00 Villarr eal, [facility] ABORH CONFIRMATION (LAB ONLY) 2023-03-29 05:32:[address] [facility] ABORH CONFIRMATION (LAB ONLY) 2023-03-29 05:32:[address] [facility] ABORH CONFIRMATION (LAB ONLY) 2023-03-29 05:32:[address] [facility] ABORH CONFIRMATION (LAB ONLY) 2023-03-29 05:32:[address] [facility] C-REACTIVE PROTEIN 2023-03-29 05:09:[address] [facility] BASIC METABOLIC PANEL (NA, K, CL, CO2, GLUCOSE, BUN, CREATININE, CA) 2023-03-29 05:09:00 Nolan Moreland [facility] SEDIMENTATION RATE 2023-03-29 05:09:[address] [facility] CBC WITH DIFF 2023-03-29 05:09:00 Nolan Moreland [facility] GLYCOSYLATED HEMOGLOBIN (A1C) 2023-03-29 05:09:[address] [facility] PROTHROMBIN TIME / INR 2023-03-29 05:09:00 Nolan Amador [facility] ACTIVATED PARTIAL THRMPLAS GYPSY 2023-03-29 05:09:[address] [facility] HB ABO GROUPING 2023-03-29 05:09:00 Nolan Moreland [facility] C-REACTIVE PROTEIN 2023-03-29 05:09:[address] [facility] BASIC METABOLIC PANEL (NA, K, CL, CO2, GLUCOSE, BUN, CREATININE, CA) 2023-03-29 05:09:[address] [facility] SEDIMENTATION RATE 2023-03-29 05:09:[address] [facility] CBC WITH DIFF 2023-03-29 05:09:00 Nolan Moreland [facility] GLYCOSYLATED HEMOGLOBIN (A1C) 2023-03-29 05:09:[address] [facility] PROTHROMBIN TIME / INR 2023-03-29 05:09:00 Eduard rrbladimir [facility] ACTIVATED PARTIAL THRMPLAS GYPSY 2023-03-29 05:09:00 Aniceto [facility] HB ABO GROUPING 2023-03-29 05:09:00 Aniceto [facility] C-REACTIVE PROTEIN 2023-03-29 05:09:[address] [facility] BASIC METABOLIC PANEL (NA, K, CL, CO2, GLUCOSE, BUN, CREATININE, CA) 2023-03-29 05:09:[address] [facility] SEDIMENTATION RATE 2023-03-29 05:09:00 Gaby etienne Nolan [facility] CBC WITH DIFF 2023-03-29 05:09:00 Aniceto Nolan [facility] GLYCOSYLATED HEMOGLOBIN (A1C) 2023-03-29 05:09:[address] [facility] PROTHROMBIN TIME / INR 2023-03-29 05:09:00 Eduard maza Nolan [facility] ACTIVATED PARTIAL THRMPLAS GYPSY 2023-03-29 05:09:00 Aniceto [facility] HB ABO GROUPING 2023-03-29 05:09:00 Aniceto [facility] C-REACTIVE PROTEIN 2023-03-29 05:09:00 Gaby etienne Nolan [facility] BASIC METABOLIC PANEL (NA, K, CL, CO2, GLUCOSE, BUN, CREATININE, CA) 2023-03-29 05:09:00 Aniceto [facility] SEDIMENTATION RATE 2023-03-29 05:09:00 Gaby etienne Nolan [facility] CBC WITH DIFF 2023-03-29 05:09:00 Aniceto [facility] GLYCOSYLATED HEMOGLOBIN (A1C) 2023-03-29 05:09:[address] [facility] PROTHROMBIN TIME / INR 2023-03-29 05:09:00 Eduard maza [facility] ACTIVATED PARTIAL THRMPLAS GYPSY 2023-03-29 05:09:00 Aniceto [facility] HB ABO GROUPING 2023-03-29 05:09:00 Aniceto [facility] MR CERVICAL SPINE WO CONTRAST 2023-03-19 16:59:51 Requisition, Paper [facility] ASSIGNMENT OF BENEFITS 2023-03-19 15:59:50 Docto r Unassigned, [place] [facility] Encounters Start Date/Time End Date/Time Encounter Type Admission Type Attending Clinicians Care Facility Care Department Encounter ID Source 2023-06-02 00:00:00 2023-06-02 00:00:00 Orders Only Doctor Unassigned, [place] [facility] 1.2.840.114 350.1.13.10 4.2.7.2.686 [id number] [facility] 2023-04-22 00:00:00 2023-04-22 00:00:00 Orders Only Doctor Unassigned, [place] [facility] [id number] 350.1.13.10 4.2.7.2.686 [id number] [facility] 2023-04-21 00:00:00 2023-04-21 00:00:00 Telephone Natalie Ridley [facility] [id number] 350.1.13.10 4.2.7.2.686 [id number] [facility] 2023-04-21 00:00:00 2023-04-21 00:00:00 Telephone Sarah Camp [facility] [id number] 350.1.13.10 4.2.7.2.686 [id number] [facility] 2023-04-16 00:00:00 2023-04-16 00:00:00 Telephone Rodolfo Hassan BUILDING 1.2.840.114 350.1.13.10 4.2.7.2.686 [id number] [facility] 2023-04-15 00:00:00 2023-04-15 00:00:00 Transition of Care David Genao 1.2.840.114 350.1.13.10 4.2.7.2.686 [id number] [facility] 2023-03-28 17:49:00 2023-04-14 17:03:00 [id number] 2023-03-28 17:49:00 2023-04-14 17:03:00 Hospital Encounter Betito Nunes [facility] 1.2.840.114 350.1.13.10 4.2.7.2.686 [id number] [facility] 2023-04-08 08:40:00 2023-04-08 13:41:00 Surgery [facility] 1.2.840.114 350.1.13.10 4.2.7.2.686 [id number] [facility] 2023-04-03 07:00:00 2023-04-03 08:57:00 Surgery Anesthesiol [facility] 1.2.840.114 350.1.13.10 4.2.7.2.686 [id number] [facility] 2023-03-31 12:39:00 2023-03-31 16:44:00 Surgery [facility] 1.2.840.114 350.1.13.10 4.2.7.2.686 [id number] [facility] 2023-03-25 00:00:00 2023-03-25 00:00:00 Outpatient R RADIOLOGY [facility] [id number] [facility] 2023-03-19 12:04:14 2023-03-19 23:59:00 Hospital Encounter Radiology [facility] 1.2.840.114 350.1.13.10 4.2.7.2.686 [id number] [facility] 2023-03-19 11:02:55 2023-03-19 12:03:00 Hospital Encounter Radiology [facility] 1.2.840.114 350.1.13.10 4.2.7.2.686 [id number] [facility] 2023-03-19 11:02:55 2023-03-19 12:03:00 Outpatient R RADIOLOGY [facility] [id number] [facility] 2023-03-19 00:00:00 2023-03-19 00:00:00 Orders Only Doctor Unassigned, [place] [facility] 1.2.840.114 350.1.13.10 4.2.7.2.686 [id number] [facility] Results Test Description Test Time Test Comments Results Result Co mments Source [facility] GLUCOSE (AUTOMATED)2023-04-14 17:04:00* Test Item Value Reference Range Interpretation Comme nts POCT GLU (test code = 9302222566) 126 mg/dL 70-110 H Lab Interpretation (test cod e = [id number]) Abnormal [facility]ATED)2023-04-14 12:30:48* Test Item Value Reference Range Interpretation Comme nts POCT GLU (test code = 6399920862) 120 mg/dL 70-110 H Lab Interpretation (test cod e = [id number]) Abnormal [facility]OMATED)2023-04-14 01:16:29* Test Item Value Reference Range Interpretation Comme nts POCT GLU (test code = 9039923848) 145 mg/dL 70-110 H Lab Interpretation (test cod e = 98034-3) Abnormal [facility]ATED)2023-04-13 22:02:07* Test Item Value Reference Range Interpretation Comme nts POCT GLU (test code = 7598660534) 156 mg/dL 70-110 H Lab Interpretation (test cod e = [id number]) [facility] 16:21:16* Test Item Value Reference Range Interpretation Comme nts POCT GLU (test code = 8347915536) 141 mg/dL 70-110 H Lab Interpretation (test cod e = 70968-3) Abnormal [facility]ATED)2023-04-13 15:00:32* Test Item Value Reference Range Interpretation Comme nts POCT GLU (test code = 4779742331) 137 mg/dL 70-110 H Lab Interpretation (test cod e = [id number]) Abnormal [facility] ([facility]OMATED)2023-04-13 12:57:13* Test Item Value Reference Range Interpretation Comme [facility] POCT GLU (test code = 8951088380) 106 mg/dL 70-110 Lab Interpretation (test cod e = 41263-9) Normal [facility] METABOLIC PANEL (NA, K, CL, CO2, GLUCOSE, BUN, CREATININE, CA)2023-04-13 11:18:30* Test Item Value Reference Range Interpretation Comme [facility] NA (test code = 2124675726) 134 mmol/L 135-145 L K (test code = 6064300908) 4.5 mmol/L 3.5-5.0 Slight hemolysis CL (test code = 5477528096) 98 mmol/L 98-108 CO2 TOTAL (test code = 8824840423) 25 mmol/L 23-31 AGAP (test code = 9652650405) 11 2-16 BUN (test code = 9415674801) 18 mg/dL 7-23 Slight hemolysis GLUCOSE (test code = 1391513789) 102 mg/dL 70-110 CREATININE (test code = 4189801009) 0.70 mg/dL 0.50-1.04 CALCIUM (test code = 0259511555) 8.8 mg/dL 8.6-10.6 eGFR (test code = 2678947993) 80.7 mL/min/1.73m2 GARRICK (test code = GARRICK) Association of Glomerular Filtration Rate (GFR) and Staging of Kidney Disease* + -----+ --------+ +| GFR (mL/min/1.73 m2) ?| With Kidney Damage ?| ?Without Kidney Damage+ +------- +---- --+| ?>90 ?| ?Stage one ?| ? Normal ?+ ------+ ---------+--------- +| ?60-89 ?| ?Stage two ?| ? Decreased GFR ? + -----+ --------+ +| ?30-59 ?| ?Stage three ?| ? Stage three ? + -----+ --------+ +| ?15-29 ?| ?Stage four ? | ? Stage four ?+ ------+ ---------+--------- +| ?<15 (or dialysis) ? ?| ?Stage five ? | ? Stage five ?+ ------+ ---------+--------- + *Each stage assumes the associated GFR level has been in effect for at least three months. ?Stages 1 to 5, with or without kidney disease, indicate chronic kidney disease. Notes: Determination of stages one and two (with eGFR >59mL/min/1.73 m2) requires estimation of kidney damage for at least three months as defined by structural or functional abnormalities of the kidney, manifested by either:Pathological abnormalities or Markers of kidney damage (including abnormalities in the composition of the blood or urine or abnormalities in imaging tests). Lab Interpretation (test code = 87498-9) Abnormal [facility] WITH [id number] 11:05:10* Test Item Value Reference Range Interpretation Comme nts WBC (test code = 6690-2) 14.46 See_Comment H [Automated message] The system which generated this result transmitted reference range: 4.30 - 11.10 10*3/?L. The reference range was not used to interpret this result as normal/abnormal. RBC (test code = 789-8) 4.09 See_Comment [Automated message] The system which generated this result transmitted reference range: 3.93 - 5.25 10*6/?L. The reference range was not used to interpret this result as normal/abnormal. HGB (test code = 718-7) 11.7 g/dL 11.6-15.0 HCT (test code = 4544-3) 35.7 % 35.7-45.2 MCV (test code = 787-2) 87.3 fL 80.6-95.5 MCH (test code = 785-6) 28.6 pg 25.9-32.8 MCHC (test code = 786-4) 32.8 g/dL 31.6-35.1 RDW-SD (test code = 35940-1) 40.8 fL 39.0-49.9 RDW-CV (test code = 788-0) 12.8 % 12.0-15.5 PLT (test code = 777-3) 339 See_Comment [Automated message] The system which generated this result transmitted reference range: 166 - 358 10*3/?L. The reference range was not used to interpret this result as normal/abnormal. MPV (test code = 29387-4) 10.4 fL 9.5-12.9 NRBC/100 WBC (test code = 8576245885) 0.0 See_Comment [Automated message] The system which generated this result transmitted reference range: 0.0 - 10.0 /100 WBCs. The reference range was not used to interpret this result as normal/abnormal. NRBC x10^3 (test code = 5923248962) See_Comment [Automated message] The system which generated this result transmitted reference range: 10*3/?L. The reference range was not used to interpret this result as normal/abnormal. GRAN MAT (NEUT) % (test code = 770-8) 75.9 % IMM GRAN % (test code = 4459952468) 0.50 % LYMPH % (test code = 736-9) 15.8 % MONO % (test code = 5905-5) 6.2 % EOS % (test code = 713-8) 1.2 % BASO % (test code = 706-2) 0.4 % GRAN MAT x10^3(ANC) (test code = 7796315192) 10.97 10*3/uL 1.88-7.09 H IMM GRAN x10^3 (test code = 3224912834) 0.07 10*3/uL 0.00-0.06 H LYMPH x10^3 (test code = 731-0) 2.29 10*3/uL 1.32-3.29 MONO x10^3 (test code = 742-7) 0.89 10*3/uL 0.33-0.92 EOS x10^3 (test code = 711-2) 0.18 10*3/uL 0.03-0.39 BASO x10^3 (test code = 704-7) 0.06 10*3/uL 0.01-0.07 Lab Interpretation (test code = 61127-4) Abnormal [facility] GLUCOSE (AUTOMATED)2023-04-12 20:50:27* Test Item Value Reference Range Interpretation Comme nts POCT GLU (test code = 6062053793) 103 mg/dL 70-110 Lab Interpretation (test cod e = 28817-7) Normal [facility] GLUCOSE (AUTOMATED)2023-04-12 17:05:51* Test Item Value Reference Range Interpretation Comme nts POCT GLU (test code = 9845299214) 119 mg/dL 70-110 H Lab Interpretation (test cod e = 98586-5) Abnormal [facility] GLUCOSE (AUTOMATED)2023-04-12 12:49:23* Test Item Value Reference Range Interpretation Comme nts POCT GLU (test code = 0962348096) 112 mg/dL 70-110 H Lab Interpretation (test cod e = 42848-4) Abnormal [facility] GLUCOSE (AUTOMATED)2023-04-12 01:14:54* Test Item Value Reference Range Interpretation Comme nts POCT GLU (test code = 8188304228) 121 mg/dL 70-110 H Lab Interpretation (test cod e = 01560-7) Abnormal [facility] GLUCOSE (AUTOMATED)2023-04-11 21:17:25* Test Item Value Reference Range Interpretation Comme nts POCT GLU (test code = 1716820195) 149 mg/dL 70-110 H Lab Interpretation (test cod e = 06623-9) Abnormal [facility] GLUCOSE (AUTOMATED)2023-04-11 17:16:57* Test Item Value Reference Range Interpretation Comme nts POCT GLU (test code = 5090346693) 146 mg/dL 70-110 H Lab Interpretation (test cod e = 64381-4) Abnormal [facility] GLUCOSE (AUTOMATED)2023-04-11 13:09:24* Test Item Value Reference Range Interpretation Comme nts POCT GLU (test code = 1227278494) 113 mg/dL 70-110 H Lab Interpretation (test cod e = 67504-9) Abnormal [facility] GLUCOSE (AUTOMATED)2023-04-11 01:42:20* Test Item Value Reference Range Interpretation Comme nts POCT GLU (test code = 6812459261) 159 mg/dL 70-110 H Lab Interpretation (test cod e = 96040-4) Abnormal [facility] GLUCOSE (AUTOMATED)2023-04-10 23:34:23* Test Item Value Reference Range Interpretation Comme nts POCT GLU (test code = 4933172002) 149 mg/dL 70-110 H Lab Interpretation (test cod e = 62896-1) Abnormal [facility] GLUCOSE (AUTOMATED)2023-04-10 17:43:50* Test Item Value Reference Range Interpretation Comme nts POCT GLU (test code = 8647102939) 207 mg/dL 70-110 H Lab Interpretation (test cod e = 19092-4) Abnormal [facility] GLUCOSE (AUTOMATED)2023-04-10 15:01:13* Test Item Value Reference Range Interpretation Comme nts POCT GLU (test code = 6961604798) 153 mg/dL 70-110 H Lab Interpretation (test cod e = 45401-3) Abnormal [facility] METABOLIC PANEL (NA, K, CL, CO2, GLUCOSE, BUN, CREATININE, CA)2023-04-10 12:20:29* Test Item Value Reference Range Interpretation Comme [facility] NA (test code = 0700845046) 135 mmol/L 135-145 K (test code = 2744413160) 4.2 mmol/L 3.5-5.0 CL (test code = 2501612478) 98 mmol/L 98-108 CO2 TOTAL (test code = 5952686342) 26 mmol/L 23-31 AGAP (test code = 0380970416) 11 2-16 BUN (test code = 7495635899) 14 mg/dL 7-23 GLUCOSE (test code = 4096972315) 152 mg/dL 70-110 H CREATININE (test code = 2667269120) 0.80 mg/dL 0.50-1.04 CALCIUM (test code = 1615121224) 8.5 mg/dL 8.6-10.6 L eGFR (test code = 8292281169) 69.2 mL/min/1.73m2 GARRICK (test code = GARRICK) Association of Glomerular Filtration Rate (GFR) and Staging of Kidney Disease* + --+ --+ ------+| GFR (mL/min/1.73 m2) ?| With Kidney Damage ?| ?Without Kidney Damage+ --------+ --------+ +| ?>90 ?| ?Stage one ?| ? Normal ?+ ---+ ---+ -------+| ?60-89 ?| ?Stage two ?| ? Decreased GFR ? + --+ --+ ------+| ?30-59 ?| ?Stage three ?| ? Stage three ? + --+ --+ ------+| ?15-29 ?| ?Stage four ? | ? Stage four ?+ ---+ ---+ -------+| ?<15 (or dialysis) ? ?| ?Stage five ? | ? Stage five ?+ ---+ ---+ -------+ *Each stage assumes the associated GFR level has been in effect for at least three months. ?Stages 1 to 5, with or without kidney disease, indicate chronic kidney disease. Notes: Determination of stages one and two (with eGFR >59mL/min/1.73 m2) requires estimation of kidney damage for at least three months as defined by structural or functional abnormalities of the kidney, manifested by either:Pathological abnormalities or Markers of kidney damage (including abnormalities in the composition of the blood or urine or abnormalities in imaging tests). Lab Interpretation (test code = 91164-8) [facility] 12:20:29* Test Item Value Reference Range Interpretation Comme nts MAGNESIUM (test code = 5171280518) 2.3 mg/dL 1.7-2.4 Lab Interpretation (test cod e = 69981-8) Normal [facility] 12:20:29* Test Item Value Reference Range Interpretation Comme nts PHOSPHORUS (test code = 5226878810) 3.1 mg/dL 2.5-5.0 Lab Interpretation (test cod e = 46694-4) Normal [facility] WITH [id number] 11:56:06* Test Item Value Reference Range Interpretation Comme nts WBC (test code = 6690-2) 18.01 See_Comment H [Automated message] The system which generated this result transmitted reference range: 4.30 - 11.10 10*3/?L. The reference range was not used to interpret this result as normal/abnormal. RBC (test code = 789-8) 3.75 See_Comment L [Automated message] The system which generated this result transmitted reference range: 3.93 - 5.25 10*6/?L. The reference range was not used to interpret this result as normal/abnormal. HGB (test code = 718-7) 10.8 g/dL 11.6-15.0 L HCT (test code = 4544-3) 32.7 % 35.7-45.2 L MCV (test code = 787-2) 87.2 fL 80.6-95.5 MCH (test code = 785-6) 28.8 pg 25.9-32.8 MCHC (test code = 786-4) 33.0 g/dL 31.6-35.1 RDW-SD (test code = 38055-7) 41.5 fL 39.0-49.9 RDW-CV (test code = 788-0) 13.1 % 12.0-15.5 PLT (test code = 777-3) 245 See_Comment [Automated message] The system which generated this result transmitted reference range: 166 - 358 10*3/?L. The reference range was not used to interpret this result as normal/abnormal. MPV (test code = 79056-0) 9.7 fL 9.5-12.9 NRBC/100 WBC (test code = 3745750584) 0.0 See_Comment [Automated message] The system which generated this result transmitted reference range: 0.0 - 10.0 /100 WBCs. The reference range was not used to interpret this result as normal/abnormal. NRBC x10^3 (test code = 3695909839) See_Comment [Automated message] The system which generated this result transmitted reference range: 10*3/?L. The reference range was not used to interpret this result as normal/abnormal. GRAN MAT (NEUT) % (test code = 770-8) 77.4 % IMM GRAN % (test code = 6706943913) 0.50 % LYMPH % (test code = 736-9) 14.0 % MONO % (test code = 5905-5) 7.8 % EOS % (test code = 713-8) 0.1 % BASO % (test code = 706-2) 0.2 % GRAN MAT x10^3(ANC) (test code = 0415176256) 13.92 10*3/uL 1.88-7.09 H IMM GRAN x10^3 (test code = 5418112905) 0.09 10*3/uL 0.00-0.06 H LYMPH x10^3 (test code = 731-0) 2.53 10*3/uL 1.32-3.29 MONO x10^3 (test code = 742-7) 1.41 10*3/uL 0.33-0.92 H EOS x10^3 (test code = 711-2) 0.03-0.39 L BASO x10^3 (test code = 704-7) 0.04 10*3/uL 0.01-0.07 Lab Interpretation (test code = 99445-5) Abnormal [facility] GLUCOSE (AUTOMATED)2023-04-10 01:12:22* Test Item Value Reference Range Interpretation Comme nts POCT GLU (test code = 4655673699) 149 mg/dL 70-110 H Lab Interpretation (test cod e = 76191-1) Abnormal [facility] GLUCOSE (AUTOMATED)2023-04-09 20:43:14* Test Item Value Reference Range Interpretation Comme nts POCT GLU (test code = 6598415035) 148 mg/dL 70-110 H Lab Interpretation (test cod e = 54430-2) Abnormal [facility] GLUCOSE (AUTOMATED)2023-04-09 20:43:14* Test Item Value Reference Range Interpretation Comme nts POCT GLU (test code = 2719751489) 148 mg/dL 70-110 H Lab Interpretation (test cod e = 59751-6) Abnormal [facility] GLUCOSE (AUTOMATED)2023-04-09 16:45:10* Test Item Value Reference Range Interpretation Comme nts POCT GLU (test code = 0129533017) 171 mg/dL 70-110 H Lab Interpretation (test cod e = 24448-5) Abnormal [facility] GLUCOSE (AUTOMATED)2023-04-09 16:45:10* Test Item Value Reference Range Interpretation Comme nts POCT GLU (test code = 6587765452) 171 mg/dL 70-110 H Lab Interpretation (test cod e = 74640-3) Abnormal [facility] GLUCOSE (AUTOMATED)2023-04-09 12:57:16* Test Item Value Reference Range Interpretation Comme nts POCT GLU (test code = 1892288901) 142 mg/dL 70-110 H Lab Interpretation (test cod e = 74907-2) Abnormal [facility] GLUCOSE (AUTOMATED)2023-04-09 12:57:16* Test Item Value Reference Range Interpretation Comme nts POCT GLU (test code = 7890727135) 142 mg/dL 70-110 H Lab Interpretation (test cod e = 32238-6) Abnormal [facility] GLUCOSE (AUTOMATED)2023-04-09 02:02:28* Test Item Value Reference Range Interpretation Comme nts POCT GLU (test code = 4837091862) 219 mg/dL 70-110 H Lab Interpretation (test cod e = 90532-0) Abnormal [facility] GLUCOSE (AUTOMATED)2023-04-09 02:02:28* Test Item Value Reference Range Interpretation Comme nts POCT GLU (test code = 0511316302) 219 mg/dL 70-110 H Lab Interpretation (test cod e = 59847-2) Abnormal [facility] GLUCOSE (AUTOMATED)2023-04-08 22:21:39* Test Item Value Reference Range Interpretation Comme nts POCT GLU (test code = 9887229312) 209 mg/dL 70-110 H Lab Interpretation (test cod e = 50251-6) Abnormal [facility] GLUCOSE (AUTOMATED)2023-04-08 22:21:39* Test Item Value Reference Range Interpretation Comme nts POCT GLU (test code = 0425009604) 209 mg/dL 70-110 H Lab Interpretation (test cod e = 50233-9) Abnormal [facility] GLUCOSE (AUTOMATED)2023-04-08 21:20:21* Test Item Value Reference Range Interpretation Comme nts POCT GLU (test code = 7400762762) 213 mg/dL 70-110 H Lab Interpretation (test cod e = 37259-1) Abnormal [facility] GLUCOSE (AUTOMATED)2023-04-08 21:20:21* Test Item Value Reference Range Interpretation Comme nts POCT GLU (test code = 3637578655) 213 mg/dL 70-110 H Lab Interpretation (test cod e = 26215-6) Abnormal [facility] 15:33:40* Test Item Value Reference Range Interpretation Comme nts APPEARANCE (test code = 0346900487) Cloudy Clear A COLOR (test code = 0853942767) Yellow Yellow PH (test code = 9947973538) 6.0 4.8-8.0 SP GRAVITY (test code = 7150444199) 1.015 1.003-1.030 GLU U QUAL (test code = 7972076168) Normal Normal BLOOD (test code = 5198456519) 1+ Negative A KETONES (test code = 9641744915) 5 mg/dL Negative A PROTEIN (test code = 2887-8) 30 mg/dL Negative A UROBILIN (test code = 6948886648) 4.0 mg/dL Normal A BILIRUBIN (test code = 5134526889) Negative Negative NITRITE (test code = 5011497029) Negative Negative LEUK SARAVANAN (test code = 8689293357) 500/uL Negative A RBC/HPF (test code = 1835999966) 1 See_Comment [Automated Fileblazea ge] The system which generated this result transmitted reference range: 0 - 3 HPF. The reference range was not used to interpret this result as normal/abnormal. WBC/HPF (test code = 7766315568) 62 See_Comment H [Automated Fileblazea ge] The system which generated this result transmitted reference range: 0 - 5 HPF. The reference range was not used to interpret this result as normal/abnormal. BACTERIA (test code = 6137455601) Moderate Negative A SQ EPITH (test code = 5615641279) 3 See_Comment H [Automated Fileblaze[employer] ge] The system which generated this result transmitted reference range: <=2 HPF. The reference range was not used to interpret this result as normal/abnormal. Lab Interpretation (test code = 40519-7) Abnormal [facility] 15:33:40* Test Item Value Reference Range Interpretation Comme nts APPEARANCE (test code = 8132518804) Cloudy Clear A COLOR (test code = 0791666720) Yellow Yellow PH (test code = 0461791333) 6.0 4.8-8.0 SP GRAVITY (test code = 7984494357) 1.015 1.003-1.030 GLU U QUAL (test code = 8259230702) Normal Normal BLOOD (test code = 0680715496) 1+ Negative A KETONES (test code = 6301131408) 5 mg/dL Negative A PROTEIN (test code = 2887-8) 30 mg/dL Negative A UROBILIN (test code = 8916097675) 4.0 mg/dL Normal A BILIRUBIN (test code = 9235573627) Negative Negative NITRITE (test code = 8981094973) Negative Negative LEUK SARAVANAN (test code = 4828773091) 500/uL Negative A RBC/HPF (test code = 3384799450) 1 See_Comment [Automated messa ge] The system which generated this result transmitted reference range: 0 - 3 HPF. The reference range was not used to interpret this result as normal/abnormal. WBC/HPF (test code = 7008959688) 62 See_Comment H [Automated messa ge] The system which generated this result transmitted reference range: 0 - 5 HPF. The reference range was not used to interpret this result as normal/abnormal. BACTERIA (test code = 0702987787) Moderate Negative A SQ EPITH (test code = 5626228522) 3 See_Comment H [Automated messa ge] The system which generated this result transmitted reference range: <=2 HPF. The reference range was not used to interpret this result as normal/abnormal. Lab Interpretation (test code = 71308-3) Abnormal [facility] GLUCOSE (AUTOMATED)2023-04-08 12:53:15* Test Item Value Reference Range Interpretation Comme nts POCT GLU (test code = 2101616031) 133 mg/dL 70-110 H Lab Interpretation (test cod e = 16149-5) Abnormal [facility] GLUCOSE (AUTOMATED)2023-04-08 12:53:15* Test Item Value Reference Range Interpretation Comme nts POCT GLU (test code = 1421192068) 133 mg/dL 70-110 H Lab Interpretation (test cod e = 69612-4) Abnormal [facility] METABOLIC PANEL (NA, K, CL, CO2, GLUCOSE, BUN, CREATININE, CA)2023-04-08 12:32:42* Test Item Value Reference Range Interpretation Comme nts NA (test code = 7694107990) 133 mmol/L 135-145 L K (test code = 5307454575) 3.9 mmol/L 3.5-5.0 CL (test code = 7541015746) 99 mmol/L 98-108 CO2 TOTAL (test code = 6518842431) 20 mmol/L 23-31 L AGAP (test code = 2096990479) 14 2-16 BUN (test code = 2318490146) 17 mg/dL 7-23 GLUCOSE (test code = 8188571223) 129 mg/dL 70-110 H CREATININE (test code = 1693549290) 0.70 mg/dL 0.50-1.04 CALCIUM (test code = 4781551376) 9.2 mg/dL 8.6-10.6 eGFR (test code = 3790712011) 80.7 mL/min/1.73m2 GARRICK (test code = GARRICK) Association of Glomerular Filtration Rate (GFR) and Staging of Kidney Disease* + --+ --+ ------+| GFR (mL/min/1.73 m2) ?| With Kidney Damage ?| ?Without Kidney Damage+ --------+ --------+ +| ?>90 ?| ?Stage one ?| ? Normal ?+ ---+ ---+ -------+| ?60-89 ?| ?Stage two ?| ? Decreased GFR ? + --+ --+ ------+| ?30-59 ?| ?Stage three ?| ? Stage three ? + --+ --+ ------+| ?15-29 ?| ?Stage four ? | ? Stage four ?+ ---+ ---+ -------+| ?<15 (or dialysis) ? ?| ?Stage five ? | ? Stage five ?+ ---+ ---+ -------+ *Each stage assumes the associated GFR level has been in effect for at least three months. ?Stages 1 to 5, with or without kidney disease, indicate chronic kidney disease. Notes: Determination of stages one and two (with eGFR >59mL/min/1.73 m2) requires estimation of kidney damage for at least three months as defined by structural or functional abnormalities of the kidney, manifested by either:Pathological abnormalities or Markers of kidney damage (including abnormalities in the composition of the blood or urine or abnormalities in imaging tests). Lab Interpretation (test code = 99304-2) Abnormal [facility] METABOLIC PANEL (NA, K, CL, CO2, GLUCOSE, BUN, CREATININE, CA)2023-04-08 12:32:42* Test Item Value Reference Range Interpretation Comme nts NA (test code = 9793144847) 133 mmol/L 135-145 L K (test code = 7990891169) 3.9 mmol/L 3.5-5.0 CL (test code = 8536062612) 99 mmol/L 98-108 CO2 TOTAL (test code = 2233843035) 20 mmol/L 23-31 L AGAP (test code = 7006661799) 14 2-16 BUN (test code = 2262703974) 17 mg/dL 7-23 GLUCOSE (test code = 2894754787) 129 mg/dL 70-110 H CREATININE (test code = 8718293219) 0.70 mg/dL 0.50-1.04 CALCIUM (test code = 0628966659) 9.2 mg/dL 8.6-10.6 eGFR (test code = 9461331253) 80.7 mL/min/1.73m2 GARRICK (test code = GARRICK) Association of Glomerular Filtration Rate (GFR) and Staging of Kidney Disease* + --+ --+ ------+| GFR (mL/min/1.73 m2) ?| With Kidney Damage ?| ?Without Kidney Damage+ --------+ --------+ +| ?>90 ?| ?Stage one ?| ? Normal ?+ ---+ ---+ -------+| ?60-89 ?| ?Stage two ?| ? Decreased GFR ? + --+ --+ ------+| ?30-59 ?| ?Stage three ?| ? Stage three ? + --+ --+ ------+| ?15-29 ?| ?Stage four ? | ? Stage four ?+ ---+ ---+ -------+| ?<15 (or dialysis) ? ?| ?Stage five ? | ? Stage five ?+ ---+ ---+ -------+ *Each stage assumes the associated GFR level has been in effect for at least three months. ?Stages 1 to 5, with or without kidney disease, indicate chronic kidney disease. Notes: Determination of stages one and two (with eGFR >59mL/min/1.73 m2) requires estimation of kidney damage for at least three months as defined by structural or functional abnormalities of the kidney, manifested by either:Pathological abnormalities or Markers of kidney damage (including abnormalities in the composition of the blood or urine or abnormalities in imaging tests). Lab Interpretation (test code = 67838-7) Abnormal [facility] Time / [id number] 11:08:16* Test Item Value Reference Range Interpretation Comme nts PROTIME PATIENT (test code = 5964-2) 12.8 See_Comment H [Automated messa ge] The system which generated this result transmitted reference range: 10.1 - 12.6 Seconds. The reference range was not used to interpret this result as normal/abnormal. INR (test code = 6301-6) 1.1 Normal INR <1.1; Warfarin Therapeutic range 2.0 to 3.0 or 2.5 to 3.5, depending upon the indications. Lab Interpretation (test code = 35326-7) Abnormal [facility] THRM[facility] [id number] 11:08:16* Test Item Value Reference Range Interpretation Comme [facility] APTT Patient (test code = 3173-2) 29 See_Comment [Automated messa ge] The system which generated this result transmitted reference range: 26 - 36 Seconds. The reference range was not used to interpret this result as normal/abnormal. Lab Interpretation (test code = 77031-2) Normal [facility] Time / [id number] 11:08:16* Test Item Value Reference Range Interpretation Comme kirk PROTIME PATIENT (test code = 5964-2) 12.8 See_Comment H [Automated messa ge] The system which generated this result transmitted reference range: 10.1 - 12.6 Seconds. The reference range was not used to interpret this result as normal/abnormal. INR (test code = 6301-6) 1.1 Normal INR <1.1; Warfarin Therapeutic range 2.0 to 3.0 or 2.5 to 3.5, depending upon the indications. Lab Interpretation (test code = 00784-2) Abnormal [facility] THRM[facility] [id number] 11:08:16* Test Item Value Reference Range Interpretation Comme [facility] APTT Patient (test code = 3173-2) 29 See_Comment [Automated messa ge] The system which generated this result transmitted reference range: 26 - 36 Seconds. The reference range was not used to interpret this result as normal/abnormal. Lab Interpretation (test code = 31195-9) Normal [facility] WITH [id number] 10:54:29* Test Item Value Reference Range Interpretation Comme nts WBC (test code = 6690-2) 12.04 See_Comment H [Automated messa ge] The system which generated this result transmitted reference range: 4.30 - 11.10 10*3/?L. The reference range was not used to interpret this result as normal/abnormal. RBC (test code = 789-8) 4.35 See_Comment [Automated messa ge] The system which generated this result transmitted reference range: 3.93 - 5.25 10*6/?L. The reference range was not used to interpret this result as normal/abnormal. HGB (test code = 718-7) 12.7 g/dL 11.6-15.0 HCT (test code = 4544-3) 37.7 % 35.7-45.2 MCV (test code = 787-2) 86.7 fL 80.6-95.5 MCH (test code = 785-6) 29.2 pg 25.9-32.8 MCHC (test code = 786-4) 33.7 g/dL 31.6-35.1 RDW-SD (test code = 00164-7) 40.6 fL 39.0-49.9 RDW-CV (test code = 788-0) 13.0 % 12.0-15.5 PLT (test code = 777-3) 262 See_Comment [Automated messa ge] The system which generated this result transmitted reference range: 166 - 358 10*3/?L. The reference range was not used to interpret this result as normal/abnormal. MPV (test code = 64849-6) 10.0 fL 9.5-12.9 NRBC/100 WBC (test code = 1036734813) 0.0 See_Comment [Automated [employer] ssage] The system which generated this result transmitted reference range: 0.0 - 10.0 /100 WBCs. The reference range was not used to interpret this result as normal/abnormal. NRBC x10^3 (test code = 2250777782) See_Comment [Automated messa ge] The system which generated this result transmitted reference range: 10*3/?L. The reference range was not used to interpret this result as normal/abnormal. GRAN MAT (NEUT) % (test code = 770-8) 63.3 % IMM GRAN % (test code = 3997614338) 0.60 % LYMPH % (test code = 736-9) 26.7 % MONO % (test code = 5905-5) 7.5 % EOS % (test code = 713-8) 1.4 % BASO % (test code = 706-2) 0.5 % GRAN MAT x10^3(ANC) (test code = 9321300946) 7.62 10*3/uL 1.88-7.09 H IMM GRAN x10^3 (test code = 6396468244) 0.07 10*3/uL 0.00-0.06 H LYMPH x10^3 (test code = 731-0) 3.22 10*3/uL 1.32-3.29 MONO x10^3 (test code = 742-7) 0.90 10*3/uL 0.33-0.92 EOS x10^3 (test code = 711-2) 0.17 10*3/uL 0.03-0.39 BASO x10^3 (test code = 704-7) 0.06 10*3/uL 0.01-0.07 Lab Interpretation (test code = 04723-1) Abnormal [facility] WITH [id number] 10:54:29* Test Item Value Reference Range Interpretation Comme nts WBC (test code = 6690-2) 12.04 See_Comment H [Automated messa ge] The system which generated this result transmitted reference range: 4.30 - 11.10 10*3/?L. The reference range was not used to interpret this result as normal/abnormal. RBC (test code = 789-8) 4.35 See_Comment [Automated messa ge] The system which generated this result transmitted reference range: 3.93 - 5.25 10*6/?L. The reference range was not used to interpret this result as normal/abnormal. HGB (test code = 718-7) 12.7 g/dL 11.6-15.0 HCT (test code = 4544-3) 37.7 % 35.7-45.2 MCV (test code = 787-2) 86.7 fL 80.6-95.5 MCH (test code = 785-6) 29.2 pg 25.9-32.8 MCHC (test code = 786-4) 33.7 g/dL 31.6-35.1 RDW-SD (test code = 77392-9) 40.6 fL 39.0-49.9 RDW-CV (test code = 788-0) 13.0 % 12.0-15.5 PLT (test code = 777-3) 262 See_Comment [Automated messa ge] The system which generated this result transmitted reference range: 166 - 358 10*3/?L. The reference range was not used to interpret this result as normal/abnormal. MPV (test code = 78605-0) 10.0 fL 9.5-12.9 NRBC/100 WBC (test code = 8460196523) 0.0 See_Comment [Automated [employer] ssage] The system which generated this result transmitted reference range: 0.0 - 10.0 /100 WBCs. The reference range was not used to interpret this result as normal/abnormal. NRBC x10^3 (test code = 5296711908) See_Comment [Automated messa ge] The system which generated this result transmitted reference range: 10*3/?L. The reference range was not used to interpret this result as normal/abnormal. GRAN MAT (NEUT) % (test code = 770-8) 63.3 % IMM GRAN % (test code = 4480013678) 0.60 % LYMPH % (test code = 736-9) 26.7 % MONO % (test code = 5905-5) 7.5 % EOS % (test code = 713-8) 1.4 % BASO % (test code = 706-2) 0.5 % GRAN MAT x10^3(ANC) (test code = 4914870210) 7.62 10*3/uL 1.88-7.09 H IMM GRAN x10^3 (test code = 7885374350) 0.07 10*3/uL 0.00-0.06 H LYMPH x10^3 (test code = 731-0) 3.22 10*3/uL 1.32-3.29 MONO x10^3 (test code = 742-7) 0.90 10*3/uL 0.33-0.92 EOS x10^3 (test code = 711-2) 0.17 10*3/uL 0.03-0.39 BASO x10^3 (test code = 704-7) 0.06 10*3/uL 0.01-0.07 Lab Interpretation (test code = 31542-8) [facility] [id number] 10:39:00* Test Item Value Reference Range Interpretation Comme nts ABO & RH (test code = 20) B POSITIVE IAT (test code = 1185) Negative [facility] [id number] 10:39:00* Test Item Value Reference Range Interpretation Comme nts ABO & RH (test code = 20) B POSITIVE IAT (test code = 1185) Negative [facility] GLUCOSE (AUTOMATED)2023-04-08 02:00:38* Test Item Value Reference Range Interpretation Comme nts POCT GLU (test code = 5020584265) 141 mg/dL 70-110 H Lab Interpretation (test cod e = 33361-3) Abnormal [facility] GLUCOSE (AUTOMATED)2023-04-08 02:00:38* Test Item Value Reference Range Interpretation Comme nts POCT GLU (test code = 7977619231) 141 mg/dL 70-110 H Lab Interpretation (test cod e = 98594-3) Abnormal [facility] GLUCOSE (AUTOMATED)2023-04-07 20:55:38* Test Item Value Reference Range Interpretation Comme nts POCT GLU (test code = 4833319290) 169 mg/dL 70-110 H Lab Interpretation (test cod e = 20901-0) Abnormal [facility] GLUCOSE (AUTOMATED)2023-04-07 20:55:38* Test Item Value Reference Range Interpretation Comme nts POCT GLU (test code = 7785075628) 169 mg/dL 70-110 H Lab Interpretation (test cod e = 22573-5) Abnormal [facility] GLUCOSE (AUTOMATED)2023-04-07 16:42:07* Test Item Value Reference Range Interpretation Comme nts POCT GLU (test code = 3198965742) 218 mg/dL 70-110 H Lab Interpretation (test cod e = 41369-7) Abnormal [facility] GLUCOSE (AUTOMATED)2023-04-07 16:42:07* Test Item Value Reference Range Interpretation Comme nts POCT GLU (test code = 6908975866) 218 mg/dL 70-110 H Lab Interpretation (test cod e = 46710-9) [facility] 13:18:00* Test Item Value Reference Range Interpretation Comme nts POCT GLU (test code = 1532203240) 117 mg/dL 70-110 H Lab Interpretation (test cod e = 81726-7) [facility] 13:18:00* Test Item Value Reference Range Interpretation Comme nts POCT GLU (test code = 0208040160) 117 mg/dL 70-110 H Lab Interpretation (test cod e = 99686-7) Abnormal [facility] GLUCOSE (AUTOMATED)2023-04-07 02:03:47* Test Item Value Reference Range Interpretation Comme nts POCT GLU (test code = 6709716980) 197 mg/dL 70-110 H Lab Interpretation (test cod e = 29820-4) [facility] 02:03:47* Test Item Value Reference Range Interpretation Comme nts POCT GLU (test code = 1976298771) 197 mg/dL 70-110 H Lab Interpretation (test cod e = 06788-5) [facility] 20:50:57* Test Item Value Reference Range Interpretation Comme nts POCT GLU (test code = 1555690472) 168 mg/dL 70-110 H Lab Interpretation (test cod e = 40294-1) [facility] 20:50:57* Test Item Value Reference Range Interpretation Comme nts POCT GLU (test code = 5130147248) 168 mg/dL 70-110 H Lab Interpretation (test cod e = 54389-0) Abnormal [facility] GLUCOSE (AUTOMATED)2023-04-06 16:59:30* Test Item Value Reference Range Interpretation Comme nts POCT GLU (test code = 2602500023) 195 mg/dL 70-110 H Lab Interpretation (test cod e = 90687-3) [facility] 16:59:30* Test Item Value Reference Range Interpretation Comme nts POCT GLU (test code = 8953441601) 195 mg/dL 70-110 H Lab Interpretation (test cod e = 61412-9) [facility] 16:59:30* Test Item Value Reference Range Interpretation Comme nts POCT GLU (test code = 7503901147) 195 mg/dL 70-110 H Lab Interpretation (test cod e = 15101-8) [facility] 12:36:01* Test Item Value Reference Range Interpretation Comme nts POCT GLU (test code = 6593317831) 122 mg/dL 70-110 H Lab Interpretation (test cod e = 05717-9) Abnormal [facility] GLUCOSE (AUTOMATED)2023-04-06 12:36:01* Test Item Value Reference Range Interpretation Comme nts POCT GLU (test code = 3633955679) 122 mg/dL 70-110 H Lab Interpretation (test cod e = 74027-6) [facility] 12:36:01* Test Item Value Reference Range Interpretation Comme nts POCT GLU (test code = 7234778880) 122 mg/dL 70-110 H Lab Interpretation (test cod e = 38408-5) [facility] 00:41:43* Test Item Value Reference Range Interpretation Comme nts POCT GLU (test code = 0192285638) 181 mg/dL 70-110 H Lab Interpretation (test cod e = 39193-2) [facility] 00:41:43* Test Item Value Reference Range Interpretation Comme nts POCT GLU (test code = 7960563892) 181 mg/dL 70-110 H Lab Interpretation (test cod e = 86351-2) [facility] 00:41:43* Test Item Value Reference Range Interpretation Comme nts POCT GLU (test code = 0041485711) 181 mg/dL 70-110 H Lab Interpretation (test cod e = 28299-9) [facility] 21:26:41* Test Item Value Reference Range Interpretation Comme nts POCT GLU (test code = 8940713961) 137 mg/dL 70-110 H Lab Interpretation (test cod e = 11923-7) [facility] 21:26:41* Test Item Value Reference Range Interpretation Comme nts POCT GLU (test code = 1489146856) 137 mg/dL 70-110 H Lab Interpretation (test cod e = 44336-9) Abnormal [facility] GLUCOSE (AUTOMATED)2023-04-05 21:26:41* Test Item Value Reference Range Interpretation Comme nts POCT GLU (test code = 9805337902) 137 mg/dL 70-110 H Lab Interpretation (test cod e = 63418-4) Abnormal [facility] GLUCOSE (AUTOMATED)2023-04-05 17:02:13* Test Item Value Reference Range Interpretation Comme nts POCT GLU (test code = 3665506147) 149 mg/dL 70-110 H Lab Interpretation (test cod e = 53381-5) Abnormal [facility] GLUCOSE (AUTOMATED)2023-04-05 17:02:13* Test Item Value Reference Range Interpretation Comme nts POCT GLU (test code = 8665980491) 149 mg/dL 70-110 H Lab Interpretation (test cod e = 63849-7) [facility] 17:02:13* Test Item Value Reference Range Interpretation Comme nts POCT GLU (test code = 9832333564) 149 mg/dL 70-110 H Lab Interpretation (test cod e = 46073-7) [facility] 13:05:58* Test Item Value Reference Range Interpretation Comme nts POCT GLU (test code = 0548119186) 138 mg/dL 70-110 H Lab Interpretation (test cod e = 16738-6) Abnormal [facility] GLUCOSE (AUTOMATED)2023-04-05 13:05:58* Test Item Value Reference Range Interpretation Comme nts POCT GLU (test code = 0787671806) 138 mg/dL 70-110 H Lab Interpretation (test cod e = 52060-1) Abnormal [facility] GLUCOSE (AUTOMATED)2023-04-05 13:05:58* Test Item Value Reference Range Interpretation Comme nts POCT GLU (test code = 6253611336) 138 mg/dL 70-110 H Lab Interpretation (test cod e = 61375-5) Abnormal [facility] GLUCOSE (AUTOMATED)2023-04-05 00:50:15* Test Item Value Reference Range Interpretation Comme nts POCT GLU (test code = 9058146869) 216 mg/dL 70-110 H Lab Interpretation (test cod e = 86694-0) Abnormal [facility] GLUCOSE (AUTOMATED)2023-04-05 00:50:15* Test Item Value Reference Range Interpretation Comme nts POCT GLU (test code = 5819060030) 216 mg/dL 70-110 H Lab Interpretation (test cod e = 96106-0) Abnormal [facility] GLUCOSE (AUTOMATED)2023-04-05 00:50:15* Test Item Value Reference Range Interpretation Comme nts POCT GLU (test code = 6574998375) 216 mg/dL 70-110 H Lab Interpretation (test cod e = 61819-9) Abnormal [facility] GLUCOSE (AUTOMATED)2023-04-04 22:46:04* Test Item Value Reference Range Interpretation Comme nts POCT GLU (test code = 5213657352) 145 mg/dL 70-110 H Lab Interpretation (test cod e = 26941-0) Abnormal [facility] GLUCOSE (AUTOMATED)2023-04-04 22:46:04* Test Item Value Reference Range Interpretation Comme nts POCT GLU (test code = 5875749981) 145 mg/dL 70-110 H Lab Interpretation (test cod e = 67545-2) Abnormal [facility] GLUCOSE (AUTOMATED)2023-04-04 22:46:04* Test Item Value Reference Range Interpretation Comme nts POCT GLU (test code = 8892424865) 145 mg/dL 70-110 H Lab Interpretation (test cod e = 88286-4) Abnormal [facility] GLUCOSE (AUTOMATED)2023-04-04 17:15:21* Test Item Value Reference Range Interpretation Comme nts POCT GLU (test code = 5065719810) 164 mg/dL 70-110 H Lab Interpretation (test cod e = 58271-0) Abnormal [facility] GLUCOSE (AUTOMATED)2023-04-04 17:15:21* Test Item Value Reference Range Interpretation Comme nts POCT GLU (test code = 5484709662) 164 mg/dL 70-110 H Lab Interpretation (test cod e = 31887-6) Abnormal [facility] GLUCOSE (AUTOMATED)2023-04-04 17:15:21* Test Item Value Reference Range Interpretation Comme nts POCT GLU (test code = 1919349443) 164 mg/dL 70-110 H Lab Interpretation (test cod e = 22288-4) Abnormal [facility] GLUCOSE (AUTOMATED)2023-04-04 13:13:28* Test Item Value Reference Range Interpretation Comme nts POCT GLU (test code = 1375413130) 127 mg/dL 70-110 H Lab Interpretation (test cod e = 00820-7) Abnormal [facility] GLUCOSE (AUTOMATED)2023-04-04 13:13:28* Test Item Value Reference Range Interpretation Comme nts POCT GLU (test code = 1780877997) 127 mg/dL 70-110 H Lab Interpretation (test cod e = 00517-8) Abnormal [facility] GLUCOSE (AUTOMATED)2023-04-04 13:13:28* Test Item Value Reference Range Interpretation Comme nts POCT GLU (test code = 6928846952) 127 mg/dL 70-110 H Lab Interpretation (test cod e = 96370-6) Abnormal [facility] [id number] 22:58:22* Test Item Value Reference Range Interpretation Comme nts Case Report (test code = 1941189609) Surgical Pathology ?Case: [id number] ? Authorizing Provider: ?Natalie Ridley MD ?Collected: ? 03/31/20231516 ?Ordering Location: ? ? [facility] OR ? Received: ?03/31/2023 1526 ? Department ? Pathologist: ? Sandra Tyler MD ?Intraop: ? Sandra Tyler MD ?Specimens: ? 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 Final Diagnosis (test code = 7986615860) [id number] GFuZzEwMzNcZnRuYmpcdW MxIHtccnRmMVxlcGljMTA 4DPHkSN9ygJgxfOo9uVkn PKYmkzD3aDOuALhsd4vgI VY0t1lzgizmKRVoXTwyLt 9udHRibHtcZjAgQXJpYWw 6uS49EEOwqW5ewORpLYf9 XHBhcGVydzEyMjQwXHBhc XKxlJC8MYDxIS5eiapvDI rhXQqtTDSrbcZ6PJAkdPB fR5StKQCbII5isrxhWBG9 OPprCZPfDOO0ZcJnMROfx 3Ezwcc5DdPbsOPhAXimyG FpblxmczIwXHBhciBBLiw oNr6qQj6QJBQcB3ZCAgQo ELFRXgMPEjXcPqExNn3LZ DPLMR6XLpkzJ66DKKEPWM 9NWTpccGFyXGxpMzYwXGZ hNJH2KAqhfE0wWtIrOIIl VY9vGBGMUWZRLTAZPzZDN IUYF7ZYPlTGZm1LWGviS9 1JO5vPKDOMVWLQVRMMQHE PTSXILGHLCrsPGV9iBFSP FIQCK29PEG4VKHqgKEPjw BrrWLBiIWsdyE3dKVUyex yqXWXgOCR2XnY0HDPRp3K quKEuDX6kPQL9XXMyo93l UY0SAGV1BcG9BpUrJSz4X tDzFT9nkBIqJPBwir72LO V5YgRpy8N8UIMkSbVhJGV pWD1ejRrhAHSnKP9qUPZm P0kriP4vnim9UpOaJVYwO qZ5JGVvvjA8Ptx5RNQuSG wme6zop1MyA2JydVNmtFi 5n4dwVRNaSiX8xDKsVRxw A6vtlsTfrQGzVSKyXOv7g XqtAgRdNCThz8fnefYxXh NoYXJzZXQwIENhbGlicmk 6dG53ZKLmwE9oiIRbHHso dpIkRyG7SDsfVUWfOiR8U TCunLKkUOHsT9jaTLPzKH qhHNGfHRmmwSXuYXQ3wFw eh2D0qQBnwBStnAgfBzNr ZrBdQSBNf9EzRKc1oBnoI 9PbHBIzAwS1sWFrWKWwGZ atEHLwHHQusaX3wE29AGw zmlE5tPEbd8Sqi32hu029 kP3xsUNfYCM5ZURlNWXvg PLlUFCzKTD5TNBiqKZeN9 jcVRBoMU8jtmpyIYkuVXs cCCYlzUW1NTJrwPAvR9Bc TJExMGxtKZLfwtz9PzRrY n3qxBPgtYbfTKmvm0con7 ccjGRtUni3OKFnLzDyKfo bTKuoa6Vbz5pjMEEimr9u BTL8bKJnePutj4Z9sYMbU OVtrXSelfDhNKJrVtS1SS ekBE0qrj02JSVwLTD5hg2 ybGNccGdicmRyaGVhZFxw E2NhBYBbx119OSIcA5XuI OEzb5K7usOeXrHjQGDmkK T4rxQ7ZCNmPFe7gSXqjxM 2npNgjAStM4pmvV2zLVXo FM0nriwdg5teRYfeDMtnD TUlhNI1nsN4IKCwyUNdO1 UsiA8pOLTyYKmiKKBcwdz 0ZiDiBo2ofFQzmEtbVBys YmtwYWdlXHBnbmNvbnRcc GduZGVjXHBsYWluXHBsYW luXGYwXGZzMjRccWxccGx ttH6eKjRyFxInFCzzSW8m GJKkZ8lmlZEmFDFpDJOeT 7vvHeKzqN5asGfxEOboTv JcZnMyMFxwYXIgSSBoYXZ lIHBlcnNvbmFsbHkgcmV2 pLC7KLWdVYykFUTpEUQeu LQveb9skLheYAHgIC4tJZ FncmVlIHdpdGggYWxsIHN 0YXRlbWVudHMgbWFkZSBi eSByZXNpZGVudHMsIGZlb Zwor9Nog7WsbYI3bK3pb7 wwq7UuJCZnrCY9FU50igG 5fM3hTDQuJG1bWBTwDW8j vPCvfGRxILAvr68aeGvps yByZXBvcnQuXHBsYWluXG YyXGZzMjhcbGFuZzEwMzN caGljaFxmMlxkYmNoXGYy AOxgZ6ibTxSkVnJmPGvkW XJ9fQ== Final Diagnosis Comment (test code = [id number]) v6lqcEEfKQZgvKPhFJJgC 3middFaACJgaTUnP8Sodu krYVvdFD2kEJ5ocMuqyXI caVXhIYKzKbKay1ffq095 pLTdi6vqWQLCweidiSg7h HzrG02oo2N4JnxrC1uzEN WqWOalzoJukcG0OCJgoZV nAAy1KXLcuIXwmaDeHdTp ENBlfIDsmPY5AWVlQJ6wt bpuOGiyMPonRNRsryD5UV RtrMYlJ3XdDPEgTY3bcna gDXM4YXhzZFStMFW3FnOa ZFKyf3Bjcgg5EvAylVOyP FxwbGFpblxmczIwIFNlY3 Nho56vQWLtv1qxQo6bXQU pbnZvbHZlZCBieSBtZXRh j4VfoGaxAPMfUM6gK3VaK 3xuj23fOJerbDCbONSauB MgsqDzl6UudG6vfCVcEEN pwpKcTTWgYR5pIZDtOCWo VXefAUYxj76fhoZxkYPgo UHeKVSxMIWpHUL4Y6XzyZ udKUfqVlWqCJ67zND3uR9 rKSX4wPImLY9dtt0iw8Yg pW91jaNxFRWdlOw6VA4gd YGrjTTvMS19O2ovpLqpXL CwBTGcq7VnI5VpHeUnRb6 bqRHwvgXznNBwY8C6ckDu JMKeNHAvp5Kdte3tfJpwq YDyrVHfeW3wyUTxDOVwVI Ihi35kFxWPvQNtCLVnVLZ rFWQ3iF2cuKPlxKdcATNk tHqbBXjiEGsbkc02qc6ch 4QrytD9YCxbQ9ybh53wbY ykHNerWEPbc760cMczGJ3 mLL51J8hod6uyQTVvVBWh alLeryDpqNT5n4VcFlEKP 3L1uAPwOUFidLk1o0YxNt ArvXj6xzDtQOTkHNZdd3R dZM6nMAVlanrpNRScRekf iK7yaB9eyPuxtX6liYZqp ME0xkpcEFQao2BzSAJ8EW xewQvrSPS3mU9kBGVecJe rYDIypX1zc3ByGYYtQWC2 ej3zVnDiy0LkdVz0oLR2G GZvciBDSzcsIEdBVEEtMy wgRVIsIGFuZCBQUiwgYW5 rCGBxYKIvHAlnyRq7XXYt l2LxQ0hwJCoiVGBMJKdlY UEiYCPAILCfXT0uDHQrOA Uji6DjhP8kx6lrItGdXCT 9fEDjmrJjyxUamD5tqS7u jSslug07hVOyYKC0vWVul bTqXYNlNKAar6Lvj5jhWL 3dOQOySXTicJXbczqfmT2 uXHBhclxwYXIgQnJlYXN0 PIZeu42rkdoidkSbdG65c z1vjKIibpPeh4MtTUSsWW Mwv4FbEYLbh79qPmepL4l dOuHxa3v7ePH2wBTyIk0r dC40hU0oQJFlg1HrlABpY RDzCUWrbQIxEIWyN5InV7 lmaWVkKTpccGFyXHBhciA sNGcwTCMLLMOgw4y8wZAg GRKwSIUeUGU0cCIzr9b4m UH2WKEovHUoo3JiJ8CujX YqsA6bQEFwnJPocsLzpJR rbkYykNPtlmzxZ3cbNXRg TMSfFYagalTqNIJkn7GpV TUkZpRxLT6eS7zpWUGoDK ObWZ00UUGuDQyjP22sfRO vbCBjZWxscyBhYnNlbnQu XHBhciAgLSBcYiBQUiBwb 6DurVv2OOqbPRHyzvVrvB l5NThuvOcwRPWlIQZ9uK7 cVUSbyFsaHQ3wVSAsYGAu TR19O5edGXUkf6FveV4hz mdccGFyICAgIEFsbHJlZC UaH41rXOF9JDbkEnP0WSd ccGFyICAgIEludGVybmFs DWIzctTlj1awD3GgpYWpK XOeRD02EpkbLATxRB9pSE XkLMMyWZRnnnF0FT8xL9Z 5ePPzGJlbWtygNILtPR2m RUK0qT2jHFIssYgkKK0sy GGhST8ldFQbz7TwhR2afb dccGFyXGNmMVxwYXIgQWx mQEG2dBRjehVmDVAzqwBo t1ncXAGrf5qcXPAceg6zc cdlaJZqkaNgC4Zlaum5wY 4gXHBhclxjZjBccGFyXGZ zMjIgIFxwYXJcZnMyMCBF Aa1HZnGAjZR8nDNkvNAtY UX3BNKpzE0dVMD9s1ftLa FbieRzsQ39tv3hgrvwnFH 3nANiAWCtXDflz1y7nCJp e36nB7cwfxGwOVQfcBsmx 8IbZWJwIHMOOHDae89nIS BRIVQvzhUlXJOwF7hklxR nRIVjOwQAZCDrITRzza29 ZWQpIHdpdGggdGhlIFVsd UStRamofmHAfrx3PQRtMX wgREFCIERldGVjdGlvbiB LaXQgKFZlbnRhbmEpLiAg IVLdsl6xeokwkDBsnfOdS UAkpjVjMF3rHZRfw8x6zU QsDYOzrdTnc4ifGVXbZGT 1b0DdXiRnPXtlEKSeqvBx fi4rkcBuPN6lRDXtcQLul VIcpVIkJVDpBsJbtqZ3GQ obGZL1JAZuAIApy4VaiS2 zOPQlBZMFRG9MZ8DUREc6 aWRlbGluZXMgdXNpbmcgZ q7yiEAmbU9mOvn8QGYhoU HqTDVkvW1oMB6pGSIvXPE as1ZinXtztfNnPQVofpeg YXIgVGhlIGNyaXRlcmlhI DHhKIZrMd8cGSGgfY7etV dqTzYOMk2HGkZHuY29xg5 lpYPcjRE5zrglmgNzqSe2 qpBtviTchC3aBCBmp5LeA Q7eBJU8mIPbKIXvZITFQM AvQVNDTyBndWlkZWxpbmV cJqtbXRMjuLVfVRIrp1u8 nXUvVSaqJFR3LLAknVrvs mXokhHrjQCpsNF5llMwWD wgbmVnYXRpdmUgbGVzcyB 0aGFuIDElLlxwYXJccGFy MUUmxHNsGDMHP72qNBpkb OMnTOFwgdh0lo03SUc8ay BhZGRmdDNcdHJwYWRkZmw zXHRycGFkZGwxMDVcdHJw YWRkZnIzXHRycGFkZHIxM DVcdHJwYWRkZmIzXGNsYn EzmnVjSeZyzv4biuZuY9x gphAsxOwgycDhry4rFUve mXQxTZZoKVCsPRRsf55jR QGfXrCploVhMvKocn1gjr VxS6q2YWL9IHu1TTMqDfN iP6gdhMmkEKEsn3usFEPe SHV5TlpqRLufwBAzVbFlS 5lksfMwgIdkskOyic1yQY wkjZMiJXYpYPViAOUpp26 vDDOiXcPeuuQeYlRlqv3m efBhI4psizWgBjxmnrQkd t3nGIqiyBMprdRynTIqS3 nvbAAIlGF8rLLpK7v7B7w auYn7AqZ7ZFMefZx7BGAt MlxwYXJkXGludGJsXHFjI RDNR4EWJnHJQ06yP8IMCh McNYEUFNhdM9YwlWvuABB kXGludGJsXHFjIFBFUkNF GcPTD7YuPT1JYSPNIxJtT 2NFGBTcA7PwyEgrsyWwnV tse4dlcXGmr6UgoSQgDDS hDuApOLGgnMGbXDNvD1p0 syDuCSLdQXV4CXModHVvN AFnF5e9xgHgCNUnSML0UK ZpwZQfTJXqW4ryzHPzAUD 5DRTiOAAga27tUHBnTpEf rskjUzVrvb4rppIbZ4eyr zAcjgiugnFsjk7tIPfljS KxNJTmDRMbXOOlm05tAUG tmaJckHJhvRtkwNE0a2ie XBTkF3kjmFmZeOS3wLVmR dEsP4CeeUy2TpP6YFNjTi MxvtLwUjEtaq6tftEwB3x admRukHhkzaJcub6aGCpg zZSgPDKhAOIiQMScj41eL PLdWvPoplGfNqXtef9zbd YxZ0x9YJE0SFe3QZJhYdB jU2hjtEyrQMCwd6irLESc TIX3JqubTEjqlPk8JuUlp GFyZFxpbnRibFxxYyAwXG NlbGxccGFyZFxpbnRibFx tCkAtMGCqdBjqjR90Oviu wd55VAQlc5adDGVkdZXuI QK5V2k4joCgGSQgxEQpbC UnHKKmgQDuTXb5mtTfMKG mcjNcdHJwYWRkcjEwNVx0 bbDrTPDoMiGpX7xhvzXwz FzmuuFrux7yKOiuwTVtNS YsYNEvACScj13iTJEeNhH npqBkGlJgaa5iqeSzE2uq jcCzWalgbsWaju8yGEvgr UIxbnNayFWfK3gvsGKQnS O6eOTtI5c4L1vadRv8VqG 6ALFdhPv7SOH4VoqfeKHc XMF4ZXEhZEKxy37tKNGwI sRroubhZbXtqz6zqtHmM1 vxqfXkegdbfxArxy0aDTg xfQKqPDXrMIFhZAPtt54k EIFdtqIhbQPhuJqzgKO0x 6lxAXRwM0sjnQqLlVA7sL BtOrGtB0KuaHj9IXXsWTZ ztsBseW86McxxbJOxOZcz IIupBDOadpRisE14Fjvkl EYmHCLrLBNjnCkaaW87Tk iwhq80YQThs1ahXBHjcTI xWLU7H3v2efTbOPXamEGo mQHqGIRklTWjKRn9ajCoX GRmcjNcdHJwYWRkcjEwNV t9djChEKIrJwNeT2pemjC ehRtysxOoyf3xHVircLEk WFRsWGLeOXUmw74sOREsI mZnhrUeLvIdea4gnvQrF2 roedTeDvwmhjYevx6cKAh jyMIkeqIfaTWjO8xlrSHC jBC2bHQeK8e9I9bfzXh5L wG9ABZaaVp9JDY9QfqjuD XvDQO7BKBhAJEfx68zLOH vAhVdbpeyUbBckb9fujFe S8vvqiTvadgwonCxte7tK VxjbGJyZHJiXGJyZHJub2 5lXGNsdmVydGFsdFxjbGZ 9r1djVGAkR8vkfHzUkEZ1 qDHdYfZqT6TzeFx6UYKcU WIceyScuS31HynjvKQzUj guIYlpMIFhkwHbeA27Luu uyWIvOV0pEUHgH8AmsZio xtHpfZztm5aoqJYce8Ydo HJwYWRkZnQzXHRycGFkZG EiW6k7dgYmMFAjJHP1KOS qhUPiUKRjN3k3anIcZORe SOU9ANVqyHAsKUXwT4adw ZSyEVE9ZNGaGJAqw14iPG XeKuBgkfunJhHhvn5qmzX iI0ecfrLlcrqokqJlhw9o ZVxjbGJyZHJiXGJyZHJub 25lXGNsdmVydGFsdFxjbG C2q8ifUXSaZ1ojlRjViJE 5cOQgAnMjU1MgmHx8NoG5 IMCsQhYtrhHzMwQuqa1bg xTmD5ghbfTwkWfguaUbnn 9uZVxjbGJyZHJyXGJyZHJ oh46kQMOmAaOvaxKpNpJi av4dnyOlI4n3CAJ5KDj8C EUbPaBhP1ockEuxWSAhe1 lsDAMeEWH8FlqeMKzqwHl 1MzJccGFyZFxpbnRibFxx YyAzXGNlbGxccGFyZFxpb oMayCvlXkEhMC3qXzVxD0 JwxByjhhAczTonq4ozdEU vz1QzzLHyANQbLyTuBSIp zZFjRQBuU7r2dcJmFKBnJ NC1HVEweTLkSPSaS4s7uj DbVGMtMVG0TRUdzAZjNSC kE0imtZOrYAX6PACfJGOb p82kZEOaZsAvpkliXkUto g8uwcOqQ3ffztXougmezl Rzbj4vBLmvuOTvCVQuEYF aWWLfl34bWAAefcZsvPYx pWiroFR9m8xdHLVuH9axe FjQxNZ8dIHeFpTrB2IthV j7LwP0RDIqEkGjnuLxTmY lnj9pqrGzH9cwvkDcdIyx cbVfcj8wAMyciAVmYCGrA DRrMCOlb77aGBBcXjRihb UjFxXgdk4kzmZrB6f3EME 0KPe8VBEwEsVkO8numOyx UAJbd6tpIDVeCKZ6AzhwB JxyaEv5XuIodOFtDIwlnv BveHhmBiZ3PTKmpXxabYK jZWgjdqShfHlqIbWeKk96 WiVaT7CjvCuqklNrwXpcl 8iymEPvu4HfkALtsUCjp4 a4qaYzRJZarYMqjGPwHYG kZmwzXHRycGFkZGwxMDVc dHJwYWRkZnIzXHRycGFkZ HIxMDVcdHJwYWRkZmIzXG CoPpEtxxZiUjEong6jwnU zF2updxVuaJtypmVeyi2x ZVxjbGJyZHJyXGJyZHJub 25lXGNsYnJkcmJcYnJkcm 6nzvDdD1m1QKZ7ZVs7NQS yGkGrI0abnWkiIZHsf2vs KAUeZWW6FvekPEbpwHCoQ mEbZ4cbmzTivIbxyjXuon 9uZVxjbGJyZHJsXGJyZHJ bs59iVHUnGhOlppItDnRd hl2vlvJvD4mgznQgVeqyx fVpmp1aQUdfcMUchvJkkX HbA4vmvAXEgVQ1fMNzK8k 1A0bwqHe2IqT9PPMuvLj7 ODUzMlxwYXJkXGludGJsX LBbYGVtF8IrmFffVRVzLJ vlvYBtPFGtAQ95RhYuO2H bvKstpgYneYrvh4icvLZk WQxyACBgpZMmx2ExpOSvU WRkZnQzXHRycGFkZGZsM1 n2upYrYLYrBUD3DGVqiUE qYDXnB1g9ucHmRBDuEYE9 MLXmxNNqNYXyZ7sogHWaH VV4PBTnQAMga69nTXDiTx WulsonLsYbuy5qinZzG2b xnsRolscngeClfh6xHAgh bIHmIABuISEfVLWlx91eE WKofgEwhYUwcEheaGJ5v7 gxKLAzO6gdkGsQjVI7tXB vBgSkT3UmhDp5GpK0LFIx AeAlijZnNaPwlh5nybItU 6cvowAhsLeutlOvbt0dXR uqeKHaMSGdSPMhFRLjh60 mTJXyAhOkneNlLvNgfl6e jlShV1p2NJP2EAy7EBXcE eAhJ8cvjFdfXFAjc1ogZW LoTMQ6MkscGGmckWi8PgC ccGFyZFxpbnRibFxxYyBJ RxYZNySMCAujC3COFgEzX ElTKVxjZWxsXHBhcmRcaW 94XxfrwTUmAY3OCH7BPEU BTG2XUEXGG8tSBAKZMWuv B2TvjOavapRdnKqsk8peh LTvg6TzgWBxOTTlRwCwRE AjmNWgTPQaK3f1ivGwCMB yAJZ6MWAjfQXsQNJiY2f6 clPaKXVgBIA6WCIduKCnE KLoC8yaoDCnOAL3ZCRoRF Jvx78tKIKpTsHwlitmZlW cpm0jbjIqU2ryxySxlqay tyEnxc9nEAgjxLTxETTpL FZfDSIgh26sVYSbisVpvM XbtKjxgTE4w4soIFWtR0b gcCsScVL4dAJzYkPuR4Uj pWa5GiQ9PHViJyWzwxSgA bAuhr0jopJzJ4manzHicE tnwnLaya6tFTlizDVmUVI aHJOuEGLpd58tBNRnNeIu ihTeWlHfbs5ffrGpB6q7Q ID1DBt7XSEhFsMeR9pkbO apCQQxg9zbZHDzZBR3Nok aGQumhNp9RlWcbHKqMCha bnRibFxxYyAwXGNlbGxcc GFyZFxpbnRibFxxYyBOb2 1gXKIeaBzqhS46Znmrpf8 4RRHte7dtCLGlbPPpJIL6 L4l9qfHyULPglEWfqFMoH QUdlURaAMz8nzQhPJIbkq BduSAcOSQxpmGxLCg5grJ nYZKfIyGqQ1zyzzLkkRwb zrZjyy3lTYzhlYJlDSRzJ TRnPJEir65xYZBwFhPiec AuJtIjqh8vcgPoO5ooorS cZrvfgzTdnx5wPTbsuIMc luHztTVkG1tkgXRFhVX9a JLiN3b7E8iyrEn3GhT9UH JnrWo7FRYkNrbrqTKcBLA 7OPUuRNDww27lOOQnZjHb xwnaAaJkod7qbaBlJ5xqp lKkrygpvzVvqu8sENqahX RmZVCtJHSmIDXqk60pZLE stoJwaCYndOuftAF3d7oj DEUaQ4ejgCsMuHI6yREfP WAwJ5OxjBz4TVXmMOStxl WidK50EmqqvDWrQNvvYMi yHIArrvCbuJ88TdrlwOEr G6Xrk9qjUKefRZfmeILkM MWjq7s6rt81CAz3skTrZL RmdDNcdHJwYWRkZmwzXHR ycGFkZGwxMDVcdHJwYWRk ZnIzXHRycGFkZHIxMDVcd HJwYWRkZmIzXGNsYnJkcn YpRtVkbw9ebcJeO4sbkdY tvDmxsrOlbj0aOLwxzLAo BVOpGOKhKWQot17iMYEiL jYeefEfCeYlmp7ksrJnI2 k3KMD6VIw7ICNyApJpU6a tkYsoGCCyx9vuAOJbREYe JuhyMSzdrBOzUmVhH6ykv tFwcGybqhGejx1xVLgfqG RtCZCqZCDrMGEhz98yQXR dUdJigjTiNkTqpz7hzuUw U0yeeyVsYlddhbNlyc2mO AqqpMAvgvMhuPSjB4ivpS BKmFN3dOZwW7e6T9ooyXz 4Dff1CZOyuMk6OARcSpbk YXJkXGludGJsXHFjIDJcY 2VsbFxwYXJkXGludGJsXH BqGQqyfSNfmWJsvKK3MDr jFWuiUJqzzBLmRJNgj3w1 tj21ZDerHSI0re52OTTsu JQeVTW2V4v2ioCiOIJaoX XhuZOfOBMfoPKdMIt8mlO hZGRmcjNcdHJwYWRkcjEw PWw6uoZiLBIqWoCgZ0nci mQyaKxugjZxkb8zPDvakY ZfDPFrLKEcDAZqg23gHLN mOmKzkvFgTwDznl6npxXe J5ihviPiUqtmawZzph6yA StzpKBzqjStfDWjI1pymN ICfTE6fYYuR9p7H2rfxZc 1OgT8DQFqzYv0RETgTzai zQAwEKA8POHcDKAar12pV DJmFeOxnkhlQtCkbn2nmi EtG8amawBaerqflfYgeg6 uZVxjbGJyZHJiXGJyZHJu u66zTZAvhlQljROlaFefj SZ1u8snPTKyR5plzFnNqL G1vSPuVEYrY7DupMx2IFO aZSHtjuEdzH60WqenxJQj Q7wgXYokYQWxbqOfqO66E ryfjUTvB1Pvv68fPLRxzN oruJ94Jtlqrj95YTIdhfM ccWNccGFyXHFsIENvbWJp lvJpHHHndDDwJYYbz0YwG jrvWCCbGC1NTBwoI9TGSc WqMESNJSU1DANAGQalNQL mvEFeILZqm3ekEMWosZPr JID9M0v1vdXpECNobFJzq NKaVGXscRBgMRg9buJyJW RmcjNcdHJwYWRkcjEwNVx 3imPuKIOiLoKaH2lsdfSz wAfeqeCyje7aBPdpcMCvN FIpHSTrVJWyd70rKZMmTt HagyOiDwThmd8cqsXtR6f btqIlInvhlcBpbe2jJDen xGQbgwMerPGuD1ideCPZz QZ1uPKwI6a9B6mvrMm8Fi NzIQLroMp9QWJ1FCogcPR fCMC4LWXmECMgm32lYGOj UqIixtqjSiCatp9zhdKsB 7aoqiIfhazmkqSkxm3rFN xwtCXnLQLeYVClXPTas74 lXGNsdmVydGFsdFxjbGZ0 t2jeRSTkZ3lmbNcTbMQ8e EDtTIGhC3BogJc9KAOyYT HpebYpxA22MzokdHSvZF8 9DEfuO2LgpdSrW6TbtNkz YXJkXGludGJsXHFjIElud JJnkATfyZO1zB1hIZAjxK yphC84Wfomow81VXBsu3d bEOTocRAmEJR7S8l6glIr ZGRmbDNcdHJwYWRkbDEwN Hs3ovJuVGBnqaAxlROvZL GhcuTxTWv5uwUbNQOwWwH uV6qgyuRcrUrpysFoea3q ZVxjbGJyZHJsXGJyZHJub 25lXGNsYnJkcnJcYnJkcm 9hrjBwF3yrjpGlGiuoreZ mqv9hTIjgmVYegzWwqAKz G8axaIOSwGV0kCImC6w2V 8wrqRs4YeIkVGXnsHf0VX B5MVvuzLSmSFG5OYEtEJM cx53oAMQlDmKvplazZjGr uo7iodPlO9fwomDdfctlg aPxbx4nNDccmFVfQSRnRQ YeBCPzy47oFBRlxvFkyIT xaCjvlOW4z4hbFDAhT6ys zKfYeRJ9nEIuTSRbU2Cuz Ud1TUQnSQFgojCulX02Zc xccWMgMCwyXGNlbGxccGF yZFxpbnRibFxxYyBOZWdh kKi7OZrdYGlnJWfhcVIxT NXcy6s4fo23KSgbIZF5hu 87ETVjtSEaHFM8E4t6rbY hZGRmbDNcdHJwYWRkbDEw BIf1dtTaWWWsctFndTCsB VOuwfAbRUl9dzWbSFDaGe HcP0myczFfmTwdhfZydz3 uZVxjbGJyZHJsXGJyZHJu w37uNABeCdRioiCeWcBlz z7zcqVaK9ipqbYqKsypxl Yvnf1xVCozeOUnaxFhlMG hU0srvPHWlTI7yIDrY8v6 Q8abeDa2JwPjXQAmsAe4R XU3AIhjvNIhQIA2YPJoPD Enh77lSNKbUgObegnlLfC hzj2qpjXfO2jbawNtvmhu vlYwlq6ePVigtIZxJVFgU SAnRERre30eDDNcasVcwO MegAcblAC2v2rxRVNyT2c qdCcZoPI3zYZuZUAwF5Zk bXm9EVOdYHUihbFbpA59O ozxdVXuQvj5TSOwXhd3HJ viB9ApxKlsVGJtCMhftKV cZXRhKIQza6r6dQVzERTh tBvomP05Ufgtdd60EBErv mRccWNccGFyXHFsIEhFUi 0yIGlzIGRldGVybWluZWQ dfEVdzrhyDB1kQNfbx0Fp oZdgLLSzz0DblJLcax1zT XNzLiAgVGhlIGluaXRpYW wgZXZhbHVhdGlvbiBpcyB aQDRra9HxOGNnhTHdmhkc QS4cpU2scE9tLW14fZ9cd RmrUHQqP5nfpNA3FXA4bJ VeNZUiksTvKfp3KK8bip7 cpR2eSXzzCN35pP1KQFEo P79ifFUocvMwGt8ucZCsB 3wbgxXpBCU7ABZQBKOhCV Fvhm39MGZwEUYkkjCmefO pIHdpdGggdGhlIFVsdHJh MgfcemRRkye3LHOoIItpE EFCIERldGVjdGlvbiBLaX QgKFZlbnRhbmEpLiBUaGl hKXwaVQOpoV5kmTEyTQLi eHkkfCDrttAnuDL3iDCro SkxAMEkORw5kGNdQE8yV8 U2yTEoUTkpKF1oWLBaSVT 3PTrsiK1iVZVplpPmd2Wg fWv8EGTwAwscb4OffV3xq flwDzEbGJcma4KhqaGouX g4kyDhebCmW42dm9pbLYP cBCAxmM5mrR6tBODwb8Ur YIEtALSiQICiVWUomZ0tm PNiFFOloQk6n2KooMBuBl uud7JwzY0komuiCKLeFXC yZWZsZXhpdmVseSBzdHVk wUZeTCfuuHfwUxa3f9Dcw 2NlbmNlIGluLXNpdHUgaH licmlkaXphdGlvbiAoRkl TSCkgYXNzYXkuXHBhclxw JFGhZCjipjElv0LglMJsP T5wVpVqjBUePl8qbNSsQI 8jRBPfnQTvysRfmXIaau8 iIPBzSVQjQw7sbKBuwN0j Myj1OBWkLKUjdwElCcbxH TMaZeZkXGDvWEWcu9L7LT 2qYX0shKBkamUmV65swFO lxDSqMQhkX0vdoRV1WJsu cHJvdGVpbiBleHByZXNza X0iBZTur6myiWI3GYhquW JvdGVpbiBleHByZXNzaW9 xXPZpCAUlodYpvl3guYVj p297cp1rQQAplhJmzwGvZ OUongDkA93euPSpzXSzzq Cbpp63iXspFXc4PVVdONS trA8wnNxvZOT1OUr1KYSw v89dq4AejKeaLJCue3C5L dOvNSqxZJRme6EnvghgpV LewL7jiXCxQDQiDCJhoNR qIAHgSm0mkR53xfIeWGPg d4MynY5nHTWyWFWzTARVh 5hkBPbaPP4eGRJjYISiF4 YeATVmwTugyO6azWW7ewD kcoEkuOqdWOGgYXDlX3Na DRMxV3volNvtw8IoD3vep qjuHHrsE79ec4csP3cdae 9vzdLbC6KuKGWloM2sXM2 wTQOiu4OmknjnJg4nORdD YtUdl4YwgPNhDGanYUfay mFzaXZlIGJyZWFzdCBjYW 5jZXIpOlxwYXJccGFyIEh OMg2jR46rpCbhpIMqAX7M I9RQVXULNNgHAyMyULGKK OArPLp0QTBurdKSgfAbpC FpbmluZyBpcyBvYnNlcnZ dAAJexmShFW3uzwVgBGTm zMQpqaoaAxS5oIR3ORcsY LekE51ejUrhiSSsDO0bVP adIWAmpZ52YZRtklTfkAL zNhvwXITtRJX3sZRrwI9z VUZyMA4jCRtdm9Dxb1Hlo FWoa5DeF2UzzDThRJTcxk xwYXIgTkVHQVRJVkUgSEV QQlUDTXUKYYsoAnn2EAPt pjXOskVlqJCsNTRsEF8ls SDeRL5aBZE3MUmeoK0wGB RoYXQgaXMgZmFpbnQgcGV oQ8OfvJrzhCVaYG1kWGsx dGhpbiBncmVhdGVyIHRoY Z2dHYAuEM7sEQH0qX9mEQ NlbGxzLlxwYXJccGFyIEV OFErRP1VLMGDXHZJsSXXE B6FkCESwXPmwjWXoGQAvl kM3lXJadeXidYnxlGUgSG 1icmFuZSBzdGFpbmluZyB 1cGV5QSbgARSjcRObNUZl RFLrYSV7WGTfIXHnJM9jR SYjBSBfFLTuUSV7pKSnvF 4tG4MkVCHwxcD9hFLiRBP eESJkPhL1yL3snlIyZCnw pyCkmzAovXGjgH4gATSvl nRpYWwgbWVtYnJhbmUgc3 CnzI4eemldbMjmoVRtixB rjxIemqYvAYBmMJQ4eXBw oH8vlIVpqoR7iNWyRL7yL GVxdWFsIHRvIDEwJSBvZi M9gB2hhtWmXPwqpc6bjGB lKHDikcJPF4AYCVyLDQZR AEScALMJW1UcWNHrPKpms ZFbZXYpkfI4zFGdjhEaxU gyaAQuZF9cghOmCDKcxOF ojpybZnK8tUH9NWyuANKk bXBsZXRlLCBpbnRlbnNlL NUchtTof0o7eXqrZTqqMJ C9BIAfwLidttJkBGSzb2X jdQRdc3NkZ7OxwSBxGHKh attyRUJhh2HbNOYbw2FvO PWuD2JlL5agZE6peMGwwH ZqtPxvJHGPW96cO4XJLGh 2wMGyyEwwPNHeg7FaLKNe UFIvSGVyMiBvZiBmaXhhd LpgibFzrfZkMWNwmeK5gN HmmCBknJLaILWzAHQcf5Q kLQkcazNwc0DkKFKoeFXx y0CwJsRxs1VaecQtjeGgi QIhkQ7gJdBoyJ43nyKfv0 GcGa2dqESgcR8rOPGhyjq dOpPpu1IzWLQbWyTqZQ2l HPF2IWMZNAEUlNAel7wxv 3QsIEFuYXRvbWljIFBhdG jjiU5mvJ5zuLCjXQVdGUf wYXJ9 Clinical Information (test code = 6573133032) 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] Gross Description (test code = [id number]) k2gthLVzSTVfsXFQEPD9E PGsWL5mkSjakBf5mCwrDO ZgyzI8yFJvVLojm5rzWOU 1r4sgjnPTAjusRLTjRV6i IPydTXHdZB0pQhMnBKEqA mYxXHBhcGVydzEyMjQwXH LneHSnmJW6AFZkIE1wcwd nKTmzMHhjLSXhzsJ0FIVd oEGxZ4KtUSQeVA3dezxbN JY0XJTPEjybHb2vpQBsuE tcZjFcZmNoYXJzZXQwXGZ mvYazRDPfKNp5hJ0TDejl N84eu8P6Ftd9LYPyHXEkU 0FuRZ2mCYPaxPTeG90BGu qnAVM2PAZROwqtFllwaTe dp1OjjOYkMVYmQQmlqREr NTEwMDAgXFxkYiBPVlIgI jE3UaP8JszqHsZ1RBf1KT KJAEPcNeh6RIP3CGZ2YIp 8KJSfOZ6vFRbaxWZzXIln IyqfAVujW160YXamIJBoT 4AbM4JeZJteQsKiTAdvTA YxHVImIBbeQGSpL0RKYQO lLIN8BdR4DPMlNIy8TDsq S5GGXMCsKICoTsOnHQCkF tL5GXr6BGOUPe6qSHt8JC I0ZYSnWZZ6RLnjJJYjSIM gMiBcXHNzIDMgXFxmbCBc KO4lzCapLMVlMV1ZUQJqJ XivTMMqYwOrQ4QRT7wOJB 4gQVxsdHJjaFxmczIyXHB yzoXRCjsqFQStQA3GAZUy SIxhKEm3aoHnNQYdNsAjI YHqG05ow8IWb3IiSI8OYT w3ymTonuglhX4sZODzxwQ gDQpcZnMyMFxwYXIgDQpc Q1ZaWUTlLTIrnURxLIVxt UOjbbPuHOe9PTYqXsHmq6 wmYa8vCVeqiJXub8NdajN 4dMSjBEDegqM7iHFigQxh biBsYWJlbGVkIHdpdGggd GhlIHBhdGllbnQncyBuYW 3aJXDDOENwoB4iSXLcXDF CIhPgfhGjMwQcRq6zzWXJ mI5mznTkXY2eBLCogjEsy 0XcIW0mBLXcc8yqN9vwPM MtJRskZS89GF8yNKidjaS bokUgEGCyz9xtQIVna7S3 EOVqOF8oFTztNH2yPTelV A06FWHaPD1eA58kESCeRD TqLYMrGSXsOHOgp56pvRz oPDLsYN08CHU0sLZxcLNc QEIkFxYrdDpxn1GjStMSw IGxn3RpD3zoTH0loAJxv3 ZgdIc1lAHfETKxhFzsTEt 2JESrjuGhUCIaIC2jrtCq t5TgaNzbvvUbpgOORYviM m8neG06uV8xHBOoS1MxI3 bujNUeoBiobz9adVLhPQ3 KXHBhciANClxjZjAgSmFt sNIsJ5ZjRWYqG3njXC5RO KF4RsQ6QtDkLcKxVLb9Vg HcGJ4gsVLkOT9LPOBpLhF cFDMlN8njCABbYK1JLRFe MSANClxlcGljTmVzdERvY iG2NVBrfCOyVBT4ND0seZ fxWGXtYOx2PGseTIJwV3K mV4LbGWduKyIrSIvwHPFc NJLtMCvyLQCoE7WRNIQhP RK3PdO2GALyAOv2OPsnL8 JTOSLsMNJhBcCuWER2TqO 4SFp2MVWFCv2gNQp2ZYbs QVk4OKX1AMywNIIhZCHeT iBcXHNzIDMgXFxmbCBcXG 7lgMgfINTwUVMyFHL1LCO rpETYp7OhWJNzVPorR4Su XGZzMjJcZnMyMCBTUEVDS B6VVrBDMKDpZgClmTAuCB 3QLBQswpOfSAizbOzhqS4 ejWBuE4tiAuJqLwkieOmy TmVzdERvYzEgDQpcbHRyc GFyXGxpbjBccmluMFxzYj JgQIYncFGQm4BgJYWRXum mczIwIFNwZWNpbWVuIEIg zRGpxgZvGLi5DJGdOfQtv 8qopXZtTResLNC7yQUqJE TfCJCuMSUuMO87S1UgjxK tZSwgVUggbnVtYmVyLCAi Vl5hAIcgYvIrUH4iEYL3C FJjLUgkqLBhs3HgDCXjZG Lxz29uaPD0lkNaLvAkcdG lE8qqKBwiyLTpy5CwtTAv KKZvsxvxcX3uVcCld84vm YBdMVi4eALzSMViqrCbLa RoC99ntkIbZYv2QeBiuJR wUnCmlDTxKxdtS38ewI3a IZomubHkMNYcKR2tJIYrV WVaEEJvHPZ4PMYfNZxiDM 91tjYhsfFiCanqQTS4FSW vRR1wLNIhKGVteCZzzZ3r biBpcyBlbnRpcmVseSBzd WFojPT9FWZzfM4oArQnPl VjSJDpjWffe0jeLjXFyU7 5zc7zQUrmPHDmLTysgLIm X0K7gP7uCekoZPGlWOgxu 9SnSCPfxVLNe0MgFG0UQS BhciANClxzYTMwXGVwaWN Nb6ZwEIVCUculWFNxDPML CETfjwicQWLdGDUVX8TeK 20NClxlcGljTmVzdERvYz C0AHFpuFHrMLX4VM6eqLp iRCLlU8FyK1HwubZ6QFRz efRAAuxbCPTtDV6LNJFtA jIgDQp9 Intraoperative Consultation (test code = [id number]) s6fgwLYtLIDjeCQHHGS7Y SKlWL7duYmceSt7cHvtGR WvfgY8pSNmVHyqn5dsARD 0h4uarsVQNwvsFOOnEY2z GUzkXRThWJ2jMaLrUYMxY mYxXHBhcGVydzEyMjQwXH XkcKTzyPQ6EEFlTS7lupn jYKqjFHihVWQwbmA7LKAe pTBgO4XrOOBtOQ4kfspfN QI7KOEYImbbHl4gyJRayZ tcZjFcZmNoYXJzZXQwXGZ pxYxvGZWfJOx8uI5TGgem IVH4OLQDDruiHjxkaJkbp 2VjdCBcXHNnIFxcaWQgNT EwMDEgXFxkYiBPVlIgIiA 3HaJ8OeybAyF6ELj5QOBZ HEXoDjw5EMW8CQW1CEk5W DZaBV4hHKkqzSNkCFqkCz seBHgkM249TFdeTCSfX5S bF0WzVIrtOfSeWRjzJXPp IANxLJxoDAVxA7WYKXAhO EG5UhB1BNUiTPp6TCxoZ7 ZTICIgIDIzMzEwNTQxIiA 3MOm7UYDHOr4cOSw4XQLk QZDbRbH8TIfmWAArUUEwU iBcXHNzIDMgXFxmbCBcXG 7btAweFMXaAT1KYMLvORa eZQGeQfDgI5FFP4mZEJ7d QVxsdHJjaFxmczIyXHBhc cCJYtdzOHQkWQ6VJJUlZU vhYFi7nyApMGJlYbCaVIX kH58hw4DTz5NbLX6FZVx8 ccKjlrldtU9pBQQemdIlJ LieNoYjKLOCPYlgLq9MSH EkZ0DJVxWaQXYRLuYGFtI xGgCpTa8TACIDHO0ZXrjd QklPUFNZOlxwYXIgDQogI RTwEE2dDAGGDVfUMUeYQS RKZXrJGuEHMxLPGH3LVO0 OIFRPVUNIIFBSRVBBUkFU GZ7VHtxlHxPUD3BeOPZWB GWZNURIV2ijVSHePNhrMW RfTJ5eRi1uLzLVQmPHHJF TG3LLW89xOJJLUd3ABFSX YUkVF08VLZOPI0ALTBttn ACbXK4NLUQzooADWzZvk7 BzaKXzurHyh3J1XFKccX4 mCCMrFTszaWsvh80iBX0z HW7qJQGrRYV6FKE4XzfbS Q9pYKBlslAsuc5qnSxemk RwCqUdJQZsQGVoA0wkp8Q gdpNbtMu5wpUivcAzkVW9 aWVudCBpZGVudGlmaWNhd AladxU1RLGcnGJwWo7okL VkLlxwYXIgDQpccGFyIA0 VSENdFSohTPXwbINNs0Me TRgpeVL5OKafvO07gJVbN X6TGHvrnXLbaUYqXQYlJX VuIEZlbGljZWxsYSwgTUQ oDV4xIG9uHSPvAs6FJXQa rODAFFF0CO8gFXboPXJqB 1CtU6RtcmS6a1eouWgyp4 KheREyYE8ubVTnYH8QFJZ hcmQgDQpcZnMyMiANCn0= Disclaimer (test code = [id number]) j9yvsEFpFAZkc8jiQPHqx GFuZzEwMzNcZnRuYmpcdW IkQJcloaFxWKhue4WpX0N yMjAwMFxhbnNpXGRlZmxh pmfeRKTeDVG4azUlBFBlV EljQDOaNZgjOc2ieKZjfA bqLbIjPHCjx2kzqhAHZCf fKcGzO137ZXEfOPmya7od k2HlICUjwQPbj1U6VZMYk xitvGa5pZspW53vd3C6Ws wpZ7quNRGoLGJaL6NuAP3 dCWTrGmi0CAE8COU1YPPh DMIhY0LfRW8nMIWroBXrT Bw8n0sibLlpDEPoHRZ4y6 lrOUnipbXwIA4ydf1gpCf 6g4wgufHeJKQrMWWorTLP WZRtR9CbnCquSv9skLe6j TfvLgmfPUO6Ffm1QI6ntv 65set8cBweXSGrltnhJyK 9ELybCZUqlfqsUIi4ZOcr AUWvhLQ9FUNhxXIlT1BgH LZwFX2ppga4NNX9SYyzFW OcLzY7BMVjoDReXIQclZn iABpha065YNU7OxClVC2l Y2Bvo8X0nK8byAKfZAPdq DQfBwBkLRTypv5twBCyHK vcg8VgYOF8hfF2yUTofDS sMHSlLW95Liufk8LiKccw o4WgB48urAM4EIhxh4hnL Z2gEoH4uoVqEHayz3xjvV 2kIsS0XJnpTH3wSZ7qIKE uvM8twnljXZLgDxZtrlze SKChtRfgnlEnQs2bfKisP PM6REzhD7cmuY3mPrZ3MC vnE4zflZ0rEGz3FIlrhHU 0KQFhyI8kMO1ehugnz7ca BZuhTWonHSYmskD0ntR7J EPwvLTzJ2VlfU1aFKJqLZ 0ucnmdg5tuOBD0CUhmTWW cZQK3SkQfYREgm0Htndx9 TnGsl7QkeWOjNJzkK43bk 437KAJuztLrW3tfpBJfwn tvgZGdsxjrAMkpqnB8UMB kpzPyw5PoOKTeMSR1LQkm VUahfIRyDWKigHsoe7ofQ 3RscGFyXHBsYWluXGYxXG ZzMjBcbGFuZzEwMzNcaGl jaFxmMVxkYmNoXGYxXGxv Q2jwVfCiO1XhZOUzUcKls XRcP2eaAIrivuXcKYUtru YfkCP1KJtfS4a9PYUnyuZ apGb2waRwYfMjKHPoSSN1 ZYsenHYzATDjp1Ihheebg TYgBl5rvUZgPXWvrQ2lUI QiVOHmOCdnKP1hoCv1FTA FnNZctKSzMwRTTNYaGE40 crTfFJIAlyrwr9S9EBxzU LYci9DqaKItI9uvw9SgCS Kgy55zTA4mu6E0f3nbNVW 4AN2vv5IfOLTswVMdqKQw HHNwo0Bwsvuqa6IlDQTcr qQqu6LqSLWbsfVmaAIrDZ CnklYxng8pjiLlBYUjZDO bL8NypscuoDbxolWlIOHh hk7vyzPnVVK0FMNXUSWeE LSkl4DiiQ9feAOHTWS9yZ Hldk7nwuFBfWQtVRPsgn3 4DKAkUP7gZ8xsUFSbDLNk rkCdoYPtj6InWEBrhPY0z MKaIM8OAeLIg76wNPNgYS JDsbOqECZpmFqewGF8wkV 5tO0iLYfIXPXjIct+IFRo UWBPTKJrZN4riuXfu4Lyb zYhtOueCOSkfIYbt9GndG Qbi8CcfEdah6CsdBBdyLK bWC6uDVWcdryeBSPvABPK QnWZXNWaqbT7p8MzXYAkJ BBdVFW9vKmmvmn3ZUHhaC 4lZETkD3kdmujqSFifYMY xc9GtiE6orSDFdGRud5Cq yANcpGBRvKCsKP9hyzFnK JuAIUiIFST9ceTlAQHnh5 SpIPlxP6ewU92uvBoeyDi 4lDM4EFN7aA9tAub+IFxw YXJccGFyIEFwcHJvcHJpY EXuwWjiudIxO4RmvtEgvI 0stFRakoHeYJ0dOS3mG0I 3jOKiDSKsqqVhg3caNJuc dmUgYmVlbiByZXZpZXdlZ ILsj7LqTUfyYNE6HAkwok BpbmNsdWRpbmcgSCZFLCB ObFFvuYCfMUB3FKjermOu gxMhWE8mcL6kgAilvM6ln GUdzWG0qvtmSNVvHROuzE hhCZUdWZ0swXvvrT9kCzH cKcCuEPmaWQ2xUOAyD3dc rTLrOTMwPXVoJ1ejVkNvg L0qoWsfNEmgWoKhWmEtNX xwYXJccGFyXHBsYWluXGY xXGZzMjBcbGFuZzEwMzNc aGljaFxmMVxkYmNoXGYxX DulC4pwIaHqK4GaBJQqWs FqpMJvA7tgCSvvHUS6VDB dMP8ysZJlXT13vKGwm4cc GUrawTvdnu1fE17jmFRsS WwzpTqeMYTfj98da9SeZQ UkiyKbuy8xOSHjkcY9nL5 sZSBzbGlkZSBpbWFnZXMg u9WbTQhunGAyrfNpQPexH FOtKVNevXYlffA9syUbvl IkspHwVRKeiDleKACtl1J jWIVaJKpxc8Bgba6sgNRp MAXrrrEHoUaxcYEtnG3qZ 2ExCHXqVKLpso1gXMRifA 4sAIesy1BxhilyVBXlUMN oRIHfwdGfqe3wETJwlKYI AE0WUEjujPUii3ChtnBqF 5vLSLE2MLHqQsLyUoznXK KnbHGxjNYyZIQexs55ECL fqF5dfLpiSGOjcQ9wuD9u kDccxC4nCjZuSfUeDBbyK G0vFUAgW4grzNGjDSAjTL BfF5ckZlAnaD6xsCqeGZk yAyEnSaWfVHqiTGA4kV== Embedded Images (test code = [id number]) [facility] [id number] 22:58:22* Test Item Value Reference Range Interpretation Comme nts Case Report (test code = [id number]) Surgical Pathology ?Case: [id number] ? Authorizing Provider: ?Natalie Ridley MD ?Collected: ? 03/31/2023 1517 ?Ordering Location: ? ? [facility] OR ? Received: ?03/31/2023 1526 ? Department ? Pathologist: ? Sandra Tyler MD ?Intraop: ? Sandra Tyler MD ?Specimens: ? 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 Final Diagnosis (test code = [id number]) f0rxcBCxTSNas8whKZIpg GFuZzEwMzNcZnRuYmpcdW MxIHtccnRmMVxlcGljMTA 2AUGhCL2rrQgegAl8zBgg ZVDlinW7mVBxLGxap6saR KY8i2slakmqTZEoFLdqSl 9udHRibHtcZjAgQXJpYWw 5qH23VLFquQ8sjVYnPTz5 XHBhcGVydzEyMjQwXHBhc HExySF0ATIeTF1buraqCT zjZEhiQNRqphP2AZBmcBZ hI9YkWIGsCR4trmckYVF3 RXdxBHBcJOG2TtWjNXRzx 8Iajwf1HjWxgYTcATjrnL FpblxmczIwXHBhciBBLiw cGp1gEg6RRJFhY4RIExMo FTFBMoKSJqLdKsPxQa5AO IWNGL7YKttpP10QQJOPDF 9NWTpccGFyXGxpMzYwXGZ wQZB6MUyhfX3jMvNhMQTi RZ7hBJQMSZRKGLBWEhRXN LKFH7TFVyIADz4FSQsvX5 1LX0oQIUEZMLYZSYBBLGG SAUEBWWUYLqcBPL4mQDFQ TQING82GFP6XGMloHMYjx VqvLJFoLXdloG4eITQhws fuVMPfAXM0JrO6ZYGAd7Q vtHPaYV5jETD1TMRgi83f OS6XRTX0MzJ8CmBlBHn0E hDrSJ2yvEAkYQVgye44XN F2EgQai0X1AQDzGaEmYHF aHS5nwFzoPWTrAY0rSRXa T7clwG5mpnf9CsOtHWNiH cL0GJGkcxU2Dcb8ANNzPU dry0eyj8YaP8JelZAlqLy 4j0lvTYNpYhY3uROzBVtj I1hohhRvhVMsCKNkKQc3i TrzNvPrARDgl4olhbKmIs NoYXJzZXQwIENhbGlicmk 9yX77RNRryX4xpNYrRBek rzMlKyT0BOtuFHHwQoM7N ZEzrZWfIXKrV3wpDTUbRS nwPXBnWQyovBXwXNI3nSa vg7O1cAAyhHNytMfnRkHz ZuBqUNQDi8UsZRt5zOciD 5JiPKRjWwC2wQLbCNQpUI xlLKWqDBUhpiN9fB39TWe xknP2vQAms0Ekv64bb011 yE1pwDSkGPK0QPGyKBLdg XEuJWScPEC7QKScxXSyP1 cuNGKyUB4jykmuLDroSLo tSDCzpRB2ZMXipHUzA8Cr XICtYVqyJAQacer9XlMfG x1vaUXcaWqpNJmgg7jaq1 gogVMjPdk2FLTlFeJrNub mMVtle3Hnr6cjBHAyrt9k LIN3jMVjvFwbc6O5kILhE IJzrABlkgBzLOPhYiU7AD gjXB3xud18LMMySHN5nz4 ybGNccGdicmRyaGVhZFxw X8RsFLFgu087OVPaD5OeP DVgz1K2xdEuMuFwCLFzgP C8yoG5UZOiDIc0fEKlazS 5bwPyeSFdG9ytnS8sZAZe MU0yvrhxz9fxRWjzIDdjL JGfeHH4kuQ5DQBovKGzU3 RqxZ9kTCQaZHndFRFeetj 8CtOzIh4uoHSvnSvxCPhg YmtwYWdlXHBnbmNvbnRcc GduZGVjXHBsYWluXHBsYW luXGYwXGZzMjRccWxccGx fuB0zHnZtTjObQXbrUE8w IIOiQ5uyfJEuCQLuKHRgH 2xkJvGksZ8mgWbnXHnoNd JcZnMyMFxwYXIgSSBoYXZ lIHBlcnNvbmFsbHkgcmV2 vTE3IXEfQKttMTRjWBAzo UPlwy0tdAtdICMsFU5zCU FncmVlIHdpdGggYWxsIHN 0YXRlbWVudHMgbWFkZSBi eSByZXNpZGVudHMsIGZlb Kwtm2Brm8JeqNQ1xL3bd7 mas0YzDVXapEW9VS48uyS 2eB3vSTBpZD3bNAYsDE4t kOCizRCgYFNih10rxCeop yByZXBvcnQuXHBsYWluXG YyXGZzMjhcbGFuZzEwMzN caGljaFxmMlxkYmNoXGYy JKrpG8lhOiZlAhHqFXgoG XJ9fQ== Final Diagnosis Comment (test code = [id number]) e9ermCMeJZPqtFOoTZQdY 6vjrhJtQDFzdNEuO2Geyi ifNUjeYV5sMD6jgFnqePI wdLEmUDAcSnVew2yed601 wGMlg4ugVNXNvamkpPi7m SdgC90tq4G8HettH3sxOD TwGCqmidPhdeH2YBRouLE zCZr0SGInmPUwnoCrWnBz QJMhbMMsfLD1CXBzRB1vp whbAKmxTSphIAQcjiC9YS TagQQyL6WyJRIrNX4puas nMCR9FXktMDKwCON6HqEz GFPnq1Cseil0VnOriUSaH FxwbGFpblxmczIwIFNlY3 Bmo25sFWAnz9nbSk0gRJQ pbnZvbHZlZCBieSBtZXRh n5BddIafGZDxGA3uL5YsD 1oge99hZLgcpCEtGDTicB WpgsKcm7WwyT4ytDCqRBR zxtFmPRQzFB4bIOJzBVJr RYryFNQls25ebjLayENdj ZTzFIWvVDHwVSP8P7GpdZ qkLHysHvDqDW32vWI3oH2 mAAZ2eJShHQ5vtz9zz0Vy xK67uiSeVDMcoZf4XZ0ah DYpeTRnZY13V2ucgEbuKU EdJXHhf2BxU5YlNsNwKs8 ucBLgucVpaQOnM3U2boFo VRTwTJJed0Cmhq1hiUgvs TKydGDfwE6qkPHbGHPmLA Wea56cAcYDkCTqWGMlEPQ bDMZ1vB9njWRuhJhuKFEe bPinABrqVWbpwe08kx2vn 9LedrA4RRmfS9zcz93ysU trSAchIGUcy084hEmlQJ7 sRV26I7pmy9zhXWKaOSTz peBibnRziBB4h2YjGnHYB 9Z9lEAyGXZnvBb9s2GxTq BvyOi4tgIlPCHdUAYox5Z yEC9qIJTbdrpeACYfFuxu kL0zzU8qjStjzY7leZWkg OW6nzrpAHFky2RnBMZ8NS oshRwuEXL8sL2iHVOprLq rGEZkwK7cv6GnAZNyGEN4 ii8lDvFlo7MefYh0xTN6K GZvciBDSzcsIEdBVEEtMy wgRVIsIGFuZCBQUiwgYW5 pYYNfMZOfGHnwgTg9OIEf u2VpY9waWLleZGFOIGnwB UDlXJWZFZPnXF6iEMEfPO Jml6TrjT0mb6nmFdNxEJL 9sZAgvdRezbGlfN4muE6s tWsotv58bJIqYFE4dCRwh oHoSROnBHDqf6Ony3dnZY 9iRLOnKQVfyPZokprcaQ8 uXHBhclxwYXIgQnJlYXN0 VBIla37girahcuBdiS10h l0eqCVumiNta9EkOAMaCG Tnj9GlQXWap18aSwdkY1u fLgSxf7a7oVW4vAVhCl2t gC22oE4cJPRpb6YpwPXvT GLtEIHdyWXlXTObU2PtM8 lmaWVkKTpccGFyXHBhciA oLBpzMWADLKWph9e2eDHz LZYwFXPvGEX9oNRrn3h7p BD5ASDhgYGgq4DxX7AjtS DsnG7tECCczLMzceAmdWH plvNikVHxbxmrL8rgGWNk AYHlSHuhyqPvVZAmt4KaD EWqHnPnLG0oX3jnENXvAU LhVH60OHPiMOghJ66krLI vbCBjZWxscyBhYnNlbnQu XHBhciAgLSBcYiBQUiBwb 9VjrGf4BRbaIFDisbXeoQ o7GBkrqXnrMUEnFYF5uM2 wHKIpiMbmNQ5vTPIeBEKs RZ08Y3ymCLTvq8ZxaW9jl mdccGFyICAgIEFsbHJlZC WqO61yQVG3HErsBoF4OBf ccGFyICAgIEludGVybmFs OMSwngBvp1itE6DxyVTmW MFzJB37ZtvbTSIxEF1mIX VtVUUrUOSqzfZ3XY8nV9X 6pXXkZTuvKopdKAVqSR1s XAS0qI2xPJJztKbeKB4xy TXqLN8vcBFzo7DsnV0jyl dccGFyXGNmMVxwYXIgQWx dXCS2sCClfsYgQHFijhQg o9rjIEOlq3dtPYSjey4ex lpqqZDqjsHbG0Kxvpa7tG 4gXHBhclxjZjBccGFyXGZ zMjIgIFxwYXJcZnMyMCBF Rh9GJmLFgIX9uFLpkGEaP FG9FGYvhW0eEXQ3f6lxKy KnyaXvxZ68po3mvrydcOO 8eIGlLGBbMVpik6k5uYOr s71vP0ufgtNdEWNqaJrqa 9XoLKVpQQFKQAFhq35yGY NLFLQfajLlTOZjG7asxcV pQEObUxEMZOYmFKSxgo62 ZWQpIHdpdGggdGhlIFVsd OFcDfhwscPHzuq1ZQAoVL wgREFCIERldGVjdGlvbiB LaXQgKFZlbnRhbmEpLiAg LKWjsg8taokfzODqieEaC TAeehHyUQ3aMLAje8l6qB YsXVZxsuJgp6twEQQnWMB 6e3SgMoZjTYtvVXUdboPu jg9nvlGiQW4eDOAlfYSdd POepIHyUUPnCmXdmwF1CY vpUJL5WLTbFJQbn2ZnrA9 sZSKgXZEOSX4JH8FYNUv5 aWRlbGluZXMgdXNpbmcgZ j9dmDXggR2gLrj6PRZeyM OhHPEoyD6zGN5iFIKzNVX yw8QmfQuvupJhHNRnebml YXIgVGhlIGNyaXRlcmlhI UTdEAWdBx9eREVtoO7zzK osFtUTYb4NHmOKiQ57yj8 roCSsqRH5ybxuomTlnEs5 goAckbSqpX4oGLUjg0AsU K4oURT9sTWmYJHkEJHXIH AvQVNDTyBndWlkZWxpbmV aXnmsZZMplMMdLIRih7s6 iQCgEOnrNKX4ZCQhcQguo oCwirXtiPFlaTU9poDsJP wgbmVnYXRpdmUgbGVzcyB 0aGFuIDElLlxwYXJccGFy YJOibDVfLJOVY31zMCzhe GJgTXAxjha6jh00EQw0lr BhZGRmdDNcdHJwYWRkZmw zXHRycGFkZGwxMDVcdHJw YWRkZnIzXHRycGFkZHIxM DVcdHJwYWRkZmIzXGNsYn AybaGvJeLbte5cvdTqQ2l bymYabFbnsnYrnr4tFTeo dFElRCPjAWQzSCUsj07bC NLoRvAhhaEuGlQdcz5fkd OqQ8x6VKB9XWe8EMMbQiY uM5sesIcfCSTsp8xzCEVt YRH8QvusBHgycJIqKnLzY 0ndefJnjTtmrtGfet2nVO dlyNAfQNQwTDRuVGRju81 eMGSbQsPcsyDsJbUebc7h buTrB0okkjZdPcyimfWfk j5aZOkvkQQresKwuJOgL1 hdtEFUrNJ2xHNmZ1r9C2y mhSc0AlW8QLXbeRf9UTRu MlxwYXJkXGludGJsXHFjI QSAH5UENnLLU82rW4FGGv PvOYYLOXkdX9BliLbvODR kXGludGJsXHFjIFBFUkNF PnWVB6ToVU6PBDPWHoDxW 0QPBOGyP1WhkGvnepRrgL nbn6gynWTnj2KesDMqLJV sZcYwKEEnfKOlDDIrE5g9 uxXbGFTlUKF0UOEnqXPyL RMjX7v0iiVoMJDfUHP6CU RcrYHyRNWiF4gmeLGxOSA 2KCSxTAJtt98aGOBsAdIe kxdrCnIhjt6akzWuJ9bzx cLutbzgcaUoey2oASqtaI CiGJZhLXCjLSLqs24fEDI vfsZyvTMrzXgncKF7y0yr MHGlI9xzfCnVfTX1dWYmV rLxJ1TmiLk4FyE3ZCBfZt YhikRnIzOnhn7npmRdS1g yilGprTevyuKqfm6uIOkw mEVnZDVrDNCyJEDsu72dR NCkPbIqinChVaGzak5oiy YjW6o6SCL2WJw4PQXsFwQ zP4xvqRlzUOSzz8qwECCu EGA6WollRMllmQv7BcScj GFyZFxpbnRibFxxYyAwXG NlbGxccGFyZFxpbnRibFx eMkRbLWOiwAalrV53Yeyz vh44EHWcn3sgXYDtaRKwW IS4M4x0xtKcRGFmoGSbmE KuACGubDFnEOx0kaUlEKZ mcjNcdHJwYWRkcjEwNVx0 bjNpXBXwVxIqN9dymoTrw ZznnbYfef0xNIhwxNNpDD QoGRSsAGIop44gLPXxZcR deqGcFbEcca7mefWiZ9od jhSeDrdqlvBfhe7lEWaqw FPrqbBmzGJsR4vfaDEAeL X5eJJiR1p2N6mawJj9GsR 7DREyfHe4YVO0FsflcKLk UIY8AFUoAWMqh05fRHPcT yMmyqkvRhPbyi6ldiOxE9 tbzqPgfsozdsEuux2lFAx amNTxKTYlKXGgWKGtb80z IDUfeaHqlMIrtGhnuPQ7x 6waJKRmW3bjpYwEhKU9tS JlSbIoE7JgxDp2URAbOFW yiiDnmR37HichjPOkRHxa NTmsSFFgprUzjT68Twler RRqMMJgTSTquLxqwJ72Hm kgpm16WKEsm6qwIBHxgLX dPQJ0N9j4ooLeLONvtIHp nHLoCUYojZTkAXu1dyRfK GRmcjNcdHJwYWRkcjEwNV u0ohMeCCZnKkSnQ9qwadQ inCpwbuVggp8aCRretOIl RPRhMYVgMEMiq67vZKTsV kFingRfNxDrvr2rgiWiF4 luduXhBtyrukJiho7eOMm poUNspqWfjEMyG1dqcZVA mST6zOAwB3k4B3fuaNa5V eO1NCTpiGc8SYV0YncvgT QqSJJ4LABtLEWjq63kFCG tUuLumyynWcXpsd3fmkFw L2vvgbUmgszrasWpsp7pB VxjbGJyZHJiXGJyZHJub2 5lXGNsdmVydGFsdFxjbGZ 9x2gbCWRdO6wvyDsMgEZ9 tRZaWjGmS0OblOe9VLSxM JUsgiGcjN47MmzdmGBaYr wdBArdQZIjchVqaT95Caa yqIIfLA2uQSMzA1VniQhe tpFpbZpzc8ktuMGnu8Yhz HJwYWRkZnQzXHRycGFkZG MpT1o7qsLhEBEeDVM8KAZ vxUSyMYQpN5k9kpGvDXTg ZPK8LORerUKmCGKdB7dlc SVdBQH1FIGeLTZfs86tZV KnEcKcgjxpUoXpjw7ezuF wM9vilwMpwzecrlJmyp4i ZVxjbGJyZHJiXGJyZHJub 25lXGNsdmVydGFsdFxjbG I5q0cdENGcX5xauKgTnAT 2uKShOdCyN3GltBs0GoB8 URTxPzCwckHoZlBbmp8gv mKiY5cjtgSpbPdznfFumv 9uZVxjbGJyZHJyXGJyZHJ fq70aXFRwKuRvupViWhEb ok8eiqJhP2y7OGZ8HTc4V BEnQoGsH7xylGemFCJcc4 doHUDsLUB5LcrfMDuxzGm 1MzJccGFyZFxpbnRibFxx YyAzXGNlbGxccGFyZFxpb iKhwXfcYiIdRB1mQqHzW1 ZfzUualoDzeRdbx6rduXO kc8YokQQrIXIvOpBcWLKh pLXlUPQaS5y5ggVsUPYsL WB8WWOdzBEeWRXdX0o5iw AnTREkDBF5AWFloJIkVTG oM8dksGNyCHE3SKEkJZUr p24yEYMgQcZvihqqLiQly h0rmhAlP0gratEdojppyw Uhmj2cMHupkJHqDAIwQDI bKHJdn68jLDYwceZatLMa qPrzvXQ8v9orPBHiB3jxp BkSjUW5lJBlPfYkJ7HmlL z1MsE4YWEbXjVtgoEnHuM wbp6frwNrW4npxfAlqYzp gqUkqw9tFBlymCEvMQKuH VBsGHUku05oQXFhOuBwhe GmVzFrmq5sxgMfB8s4OJJ 7WJm7CSZvWgXeM0qgcMcn QOPdv0tjJNBbJOJ7MxclI WqnaQt0AsJjyUIcMXahgw ZgaQvsNtC4YKPakIynaBF lQIsbwvBieUwzTyWxXl92 HcCfB0ZdiMomocObzSomm 0zpvAGot1RpjXGwyVTob9 r3woCwFPEynVPufZMjFTM kZmwzXHRycGFkZGwxMDVc dHJwYWRkZnIzXHRycGFkZ HIxMDVcdHJwYWRkZmIzXG YcRfIcfoXbFwDnjw3iuyT sS9fupeFsoUudtqEtir5g ZVxjbGJyZHJyXGJyZHJub 25lXGNsYnJkcmJcYnJkcm 8pngMuG0i7VKG3KKo8CXZ mVeErN7cgqSacGBFgo8zu YNIxXES6DuxcDBfbrBJeM kUeR3ttivUzsJzxicTiik 9uZVxjbGJyZHJsXGJyZHJ wi64tCONeZoAgawPxIgHy br9eyeXmF2zqulZnAhyiq zNksx6gPKvxdPHexyTxeG SvZ3ijxGITxZC4sEKzI4r 2O6dqpXa2ExU6GTRgeZb8 ODUzMlxwYXJkXGludGJsX TEsWRZkP9KwwUcaGYAoZK ibuTOnJKTdZW50YyVvM2I qpMbvrfVinIiyw6qiaBLc SYtwLTBpuAGgf9YpbTYmV WRkZnQzXHRycGFkZGZsM1 h1ggTnFBQpIJN4QPKsqLG zKEUaB7y9ixSbAMPgNHP3 JKMacRGvVQFzU0rmoHJeD LF0GMXnHJImt38bOOTgAl MwnubrMgZoqw1bgwUdU0x bqaWrrpxdhkVanr5hPVsn zFKsVXBpLLInYDXcp46uF NXjuaJagNXslGcqiFC1l2 yiAGYyQ3fmgTxAkMB2oTF rOtLeF9JviDj3GnI4KNEn JwZqshDgEtIpec6foqVhJ 8fjcoJbnXcgewEqte3lEX ftqRTpKFLvZSFjRLHok17 xXKYpMcFxaaNmSxJrii7h zlCrX2w8WKB7FIr2BIJhC wYrN9rttSbiBZQls6hjMA PcGIM1HdmpLExhkHw9TrU ccGFyZFxpbnRibFxxYyBJ FoMFGcRNYRenX1GLDfXlW ElTKVxjZWxsXHBhcmRcaW 63IfzmoMObJA6HCP4RGJV CDU4GGHVCN4iJGRHGOHfj W0EskAgutdGruWtep0ddu FLng7PckALaMDZhBrKsIZ OcaOFgAZGpR7w0tcGjRVE lRLS2EPXzvMMaHKLrT5z2 clOhRNBeWPY5JAQwgCApO BJpC6eyaWLwHHR7AEYjGU Pac58pORXsMtFhvucaWdL gup4zelKlT7dohnTpcoxg pdAqcc0hEOdagNOdDAJyA XSiECPit54vGFBpjuPahZ XbvEvloSC9b4qqWRElR8i puGiPgWI7xKKfRaFnN8Rh aLx4UpO5PBYrMuChyyWcO nGmpf3zoiSpO1mfhuClkA jvggYasi6kADaypHEtJXH bCPPnMEHfx74gAKHoPrOs ckBbIlCwoq5iylLwG0o3L JO0ZNa1XIDxTcMsS5xodQ ltPNWdt1btXDQjEKZ0Irk oFZbrjFk5FoMleRPmBYym bnRibFxxYyAwXGNlbGxcc GFyZFxpbnRibFxxYyBOb2 5lACIpbTvejV23Ijaeur0 1IZDzb0aiHTDikGKiMHJ3 P3n1hoStDGUfhQRgeKFeG QSlpXGwBUk9hsUuBBHjkt FxaMTrGOJdshDmELi7aoW oWAMeWhWsC1shqxCqqLuz khQzlu5nBKzjoFPwOBWrI SLgYGPmo70fRRYcIgHljb PjLsAuiz9dmqCjP8nkbbL xAlumruBnws4dUXzcdURj qkWvlMAcA3fpjYLOlOR5x WBqF8o4S4gaeGp3TgC9DZ ByfFc1XJLsQxsngFTnXJK 0GOHxYGVjd62cQFSnEkUz rvdoSmErgi0vdrHhG3jdp uFsrfvvnrXjzk4lUQbgwI TkBMYhLZJuUGKyh41jBMP pdkCeeWIihQstbKZ4x6pe PUFbL1veaKdDxDD1hLDwB XBpT6WghNk7STQfNKAxnu YbwH78FsyrkDGsWBptEBo bTWNsoaHzlR61RqrdmFQa R4Qyh2ozOMohTEzwwUEwW OTmg7o7na57VHc6rmXtJN RmdDNcdHJwYWRkZmwzXHR ycGFkZGwxMDVcdHJwYWRk ZnIzXHRycGFkZHIxMDVcd HJwYWRkZmIzXGNsYnJkcn KuRgVlbb0duxLqF2wjvaS ucObarrOkzt4eEVvgtQXn ITAcGFYpKCXbc18pIYVdN yUwzbDrClWklp3errPbS3 i9ZTN1IBx0POTvAaIuZ8z hgClcUCAzo9nrUZQyRQRc SeqaWPvlqHGkKgJsL7tqq pYnpNmaxsWqxv2iOSffrZ RaUWKfQSTxLCFyl14bKUM bZoXeudNgPkDwum7qnnLe H1hcwmSoRhhomzBkwu5dY JjwvXMyptQuyVEcJ6kzoZ OBqBE0mUDpD2y9L6draMg 2Den0LDIzgQd8MVMdGrih YXJkXGludGJsXHFjIDJcY 2VsbFxwYXJkXGludGJsXH TiGXgssHEofEMvhEP5HSl cKPgtGFpewHLeSMVzz9o1 fc25XMwcZBA4cf96NYCnx JUoECU1M2g5ctVuRHSzxD UqhWQeBAKqcZTnNZa6ffE hZGRmcjNcdHJwYWRkcjEw KWg4uhLlYIOzGaZgQ5tao tQgbKqkhrFfdz5gIUwhoQ KmSMCqONQgZUKmy09uEMZ tCuFjbxVoXmTtgz6ypqRm I1vqhrMfFftqjjTkke2uC AbfpXFqjdOfrUAbR3eulX WGkKR4jXRuU3u9D5rpvCz 8VtV4ZPVkzZg6IBJdTfty uMNcNWV6UTBhQLAkn90rO AMmKqNmfkomIaSroe2ied FxR0nhyuWloqpbjbJdnt3 uZVxjbGJyZHJiXGJyZHJu a98aCZSclaAwoVXcpDgis KP0m0aoNCUlC5lpvQnSeZ H4xXDnJBFnK7AliBd2GSG nXHPjtwEfkQ52VxdnpYXa X9lgWUqqVOBuphQzrX12Q mnmqYOwP9Fui98pOHRnqV parV16Fqbkfr63FAHlwmI ccWNccGFyXHFsIENvbWJp seXsWMCrjNQtMWVtg6SrD ftpNCAcQL6PRGkqR3MFHk OyBPLCEMF5DSGHFHtgGOV gdVBmNCNjb5qjQPSxnIGj XKS0F5s9eqZkIIIzuUDwp XLzCKVpgNEuDPb9gdUuTZ RmcjNcdHJwYWRkcjEwNVx 6cmPuWPEtToEwY6isjuEa eUvfnfIjeo3iODsarOUwF RLgAENgZXFrq68sFJClZq TtitGpDoPypl2nmpKbV6t jhvHbAbqcfeIxqw2rVNvw nCLrirYxyCKmO0fsvOPQp BL5aJKrT2z8H1knjTy2Ml FwJJZqlSh9KSI1CItrtTG qTFH4TEPnWYSkm45eUISt GtVamphzEnEpfy1wweYaW 6xgwvFiccennoDoff9aXA fwfTVmMWFqURDxCTRxd59 lXGNsdmVydGFsdFxjbGZ0 r0esWAFjB7vcbNeXsWY5d NRbILZmQ9RluQr0TEVjAC PyvqEhcE62FnxbpKYaSE0 6VYuwE7OgscNfV3RkaYkt YXJkXGludGJsXHFjIElud QEmvYIkuXG8lC9kJVWgzO tmaE18Zrbwjb63WMShn9i aCWDgqWDdFZD7R9q9joFn ZGRmbDNcdHJwYWRkbDEwN Cy3olHiGJRsumVkwLCfVZ FczjBfHXj6rfQfUFZgHaZ cG7asfuLjxBvqljGfay1e ZVxjbGJyZHJsXGJyZHJub 25lXGNsYnJkcnJcYnJkcm 9skqPhY2rudzLvHpdznuX smk0gQTztwWVgqiVasXOo G8ninJKPqKO0lKVuO3i6Z 3vaaPr0KeDmHIIlhOr8EF F5YYvurDHfGVJ9TXRkIPY wb37aNMKhWsBtcwydUrCc qf9apbIkC8bzppZpwrzmt wUfgc3nCQysiKMrWAVsNF RkRQOhg28hQMEzgbJosYW jnVoxpGE7h6xxIAXgE7mf cLfZsVB7vXKiHGDhZ2Wqc Qi0PWAvUVSmphLnyG61Pk xccWMgMCwyXGNlbGxccGF yZFxpbnRibFxxYyBOZWdh yYx0JYjcEPuyXHhdeLVnE QMsb9e4rp61WPrmPXL7kk 04ZDDvrXGkBSB1J8h2mwA hZGRmbDNcdHJwYWRkbDEw GOw3obEtXIHdwvKcpOEbQ GEvizIlKLv8nkJyTBNdHf IxP4juxjWwyFxrmmWlqg0 uZVxjbGJyZHJsXGJyZHJu u91uSRVbMwPrdpScFxGmh l6wkgXkN9tlkyGuGnlcjj Wsvs1wZToulYXxhwQcgAP cR2dupCLHlXF4eIAiU7t8 Z5ulrRu4GuFzXVEkmPy3W OZ4LGiztAHhGRG4VGOrFH Ayg12aPBEdNqXpyvvmNaR uuh5ofhDbM1lqibUrrhjk cxDxae0uTCvttIPnBSYoR LQlERCbm23sEFNyjxEzjT EilHizjSM6g2vlOMHfV8r rsZmAsCA1bMFeCUYeJ5Mr qKf9LCDqLFDkfjSoxC32B hnqxHKgVyq5MFCvLgg9LW lsM3BjpLrhVMPvHQddeTG vNWUlNOPas9y1hLCkMGLw uQzawQ37Jkrtii33EALri mRccWNccGFyXHFsIEhFUi 0yIGlzIGRldGVybWluZWQ rpTKdkrwmPM2zRExeu9Rr aOtrOHMoq3CrlTCnsr0tW XNzLiAgVGhlIGluaXRpYW wgZXZhbHVhdGlvbiBpcyB wZPCoj2UtJBLvrCIneovm XD0ytR3xwW2zED07dA0uv FhmAEQjL6aoaUB0GUH7rE CkYVDcquCqKql8TA4tsn3 jiG8sANgrLC41gF3FAJOy M07xyKUwcvAjAp4huHSqR 8xgwzYbSXQ0OXGKJZYhMZ Dwiw31RUTpHUXusyCnzlS pIHdpdGggdGhlIFVsdHJh WoxnhfKKubb9UNGxKQsjF EFCIERldGVjdGlvbiBLaX QgKFZlbnRhbmEpLiBUaGl dJAzoFYMhyJ4cgTCyWSTm uWtviUMhaiRowUO2cCHbp AvjRWQkMDg6oOEeUR0oU7 V6aUGaUUwjZV4cGMYpIDM 4HIpuzT3kTZQvysYxr0La qUf6JEHkJizhr2WsnV6jo osnWpFwQOynh3ZiilTvpW d2kwJsifQnS05qz2euHOK mIHXxxC5mkR2gDNLgh5Mi EPScSDVbWVGgEYXtkS2nd LNvNHCkxQw8a1XbqXQkVc kbq0VvdQ7bioirPLUiDDB yZWZsZXhpdmVseSBzdHVk aUYfTQzvaMhbQnp3n7Qqc 2NlbmNlIGluLXNpdHUgaH licmlkaXphdGlvbiAoRkl TSCkgYXNzYXkuXHBhclxw CJQnCOdwbwMlp1SzoUQjQ F3hGqQaeQXtNx2zcKWsHM 2iRQDbwMGtuzDdcBFzcv5 dZTBaGZPaSz6pyYUsoA9s Tmh9GKFwNVOfuwDyGiynC QWxQkWsCJToEVCfx8U5ZE 8dDU9dlKIrtiEtH71joWN zcRWhRDdeE3pdwLJ2ZFmk cHJvdGVpbiBleHByZXNza M1aWPJkx5rztNK1DJixhM JvdGVpbiBleHByZXNzaW9 qOXJzJBRszsNmhn1oxKRp f440dw9pSLJlioUaulFxL HKvakZpH95kuMMgkQEvjf Oidn07pZaiUQv7VDXbOZI wtR7crDgwXOG2PRl3CYJw u75hr7HezOneXDBer9M9R wQrCUojQOIbh0TmbjtvgC OaqN2jlBWaDNKwCJNgfLP rPQAxAk1omD44boLjWWGa p7WahP5vSLVlYARjGUFUd 8xhILlzKP2fBSNqSJNiT1 NwNPSqoMqirI9itPK3qvP zvuTlhMhtFTPxMFHsS3Nm SSOfJ4gjpOwno0UuI0xwy whbWYaiR89wd6vzH7bpwa 0hrjJgH1PyLDOtjX8tHQ6 gJOUfn8TfepsiQq6sZIdQ WmThh4PjsALwJHydEIuzc mFzaXZlIGJyZWFzdCBjYW 5jZXIpOlxwYXJccGFyIEh GOe9fZ65mnKmooYLpCJ0G A8IOMCLECGdAGvYvVYNEM CFaXOo5FSOyioKDlfTcuN FpbmluZyBpcyBvYnNlcnZ vRCXokpZaMI9hajAuTUDi kOJmiiawNrC4zBP4UBdhX MloE51txEpjxLHlRS9dNZ tyKTSoqC07PAQopbCwcQB ePmomWRCuBPW7qXDvbD2s EEAmPI5bSIhnl7Tlx7Pbc WGec9HaK1UkzFVaGMOpth xwYXIgTkVHQVRJVkUgSEV GXtRHTEVWTZpfQta7RKSm guWOtkZdyJDeHEUjZB9mo QOdNK3rJEL0PTicqL7tOC RoYXQgaXMgZmFpbnQgcGV hU6OypPudfWWlRP1xJJap dGhpbiBncmVhdGVyIHRoY E4xPEMfIO1jNQY6bB2pSY NlbGxzLlxwYXJccGFyIEV XPIoNV5TBQXYLBTNcEWIN J3MyYTXxXUjvcGCzEQTgs vM2rQXvoxLkrUsnmXKlPU 1icmFuZSBzdGFpbmluZyB 6vJT6TVhuYUOelFYrBIKf KHPfOUI9BFXqESXvYI7fN XVwQNSvJUChEJN2rCDpcC 3yK3GwHGPtsdC2cGCoUJX gCRKpGmH8xM4pewHoKUpl duEpmkCodEBbsG0gEGMbp nRpYWwgbWVtYnJhbmUgc3 XmrX9zrmforLzrkFUgoaI edvCqjzFmYPLyUDZ1wRKr xR1gsPMopdD8sOLdBP0tQ GVxdWFsIHRvIDEwJSBvZi Q8vX6hfwKrVYyvxj3rfYA aEEZoroXIN2TZTYiWVENY UWEyRJULU0QvGMEjCFjyk AFeHERyjtX7jBZtggKklB lbnPUxHN2fesOnSIIrxRD ulolnLwF6gDP5GLrpWSSp bXBsZXRlLCBpbnRlbnNlL HOwakLpk8y2bXngYIsbER Y1SPHsoEilvnXjKQYao8H sxGOxp7GjH2LnuYLfIRPi qxxzPLRsa8HuVBPsv0PhC XTnH7SsF7jkYD2jqWGkmM UjoGhaRZRJC05tQ1YABKn 1wOHhvBajDMIzj7UuZCUr UFIvSGVyMiBvZiBmaXhhd TpgbuTqbjXtGQMvmeA1qF WijDGkfQYlMTRcGTObg5N sAMpgxnWkl4GzOKHrvFBr f3SsMfNtn1ZfrsCdxnQjs ZBfdS2rOcBpeY83sePgm5 CgMi6naONevV4mJGExzsi eYnXaw2KfRRTvKeKoDM7c SRF7IXVMQVNKfMIfj0xpy 3QsIEFuYXRvbWljIFBhdG hsyK5zhK3ylNIvFPWiFDg wYXJ9 Clinical Information (test code = [id number]) 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] Gross Description (test code = [id number]) c7eteWXxRLAkqKHMRDG4C BNoWP2xnSfgvLf9uMozDI JhtmD0kTTvKCyit5qeGGN 2n8wadvEYBszaNIZrGE1x DNspQKKzXC0nPbHtZWNsZ mYxXHBhcGVydzEyMjQwXH OzkLJivVF3PUTjWT2jzch gUDpaOFnaMBYyohK3LWAi mGDuR2EtDZXoIK3cjlrdB BQ6ETMXGvjuAp4kjSXzzI tcZjFcZmNoYXJzZXQwXGZ niPsuZVLwTHf7lZ8ZGiba R70gr1R1Kwf0QDHkXZHlT 2IfFB2pPLDnjIObB57XYz qgCQV0FLOWAmnyVkfxkDg oo7YvkNMvMRWgIFjidZBa NTEwMDAgXFxkYiBPVlIgI aY7JeG9MsnuTxF4QAn6EE LVVCJzPwa5CHO6TZG8YPj 7PJFiXR9lPPxwlOJrBSze YnlgZNhnH438VAdzGSHkW 5HtF5TvYYpyIgDcBYuySX IbNVBmNTqqBLYxG9WFGTO hEZS2XpY6QGLxBNv4EIay G6DNOYQiWRJxGnJwMGAxA nG7UOq9XTNRTr8lRVr1MB T7SSHnAFC3SJeeHAHsFIT gMiBcXHNzIDMgXFxmbCBc PW8glDdlPZQfRQ5RILWvG BrkILPePbBwD1WHP3yDPY 4gQVxsdHJjaFxmczIyXHB fkuHORmkySKCiMS8UKGWf YDvoIUu3bwLzHMOgNwVkM YGoB08xh1PXa3DpZU3BQB f0pcGkxauwbK0rHSDnkjK gDQpcZnMyMFxwYXIgDQpc I3RkMUIaHUHndQIiDPRtv JZdjuJmXAh8PUEeUaIzz2 xuZj9bMFgffCTcv0GazzJ 4iGOcTVZvffD9oLCthPgr biBsYWJlbGVkIHdpdGggd GhlIHBhdGllbnQncyBuYW 1tJKLDTEPjhD4sTLDdSUK GPqPwwqRpEbCjNa3zgPNX hJ1obtIvOV4wTROmwaHav 0RdMM9fQLZqb4ykE1ilVL KkXEndBS23KR6tFNitaiH kcyGfYFSvv7tbZNTrz6J0 DNYbEN7iIWjcXW2wIIddS H94VMCeKN2yF89zODQgTI QzFDScWDHcBZBbw91rkYp eGOUzSA64PUB7bHKumWSu HBAqCeLqhGbvo4LqNpGYn TCbz6VyB6dfZY2sjFNqr3 BmtUg4cJGeKKLclKjmMUt 4TQYhrhDfPHZzBS3nvzSp g5GquHmcwrDunrBQJPflY j2ooP11dD9kFSIkA5GfB0 ylhBYqqCujud5msKRlWQ9 KXHBhciANClxjZjAgSmFt dZKtC8TaZNLlC3wnJG7FE DT2YfQ0LeTeBqQqFNb0Lp CqUG7coKFsBF8VTFYjFaL vTVCmN8nmXJQqWK5VRXZf MSANClxlcGljTmVzdERvY eX1JYKpeTDrRNN7QA1bsM vcWOVbAAc4NJvlPMRoT2E rT7DmNRbbNaCuQEyuQZWr ENKzXNsdWHAbV9YPUEFsQ RG8WiK9UOWuSBy5FHyaK5 EJDEBeSMQaIuIgZVR6TlK 6LRf7GSFGWj6uKGn2FIaa UMv2GUX5UTmrJJDwCSCqN iBcXHNzIDMgXFxmbCBcXG 5koCzpOKHqFYWpLQS9BIL jiEHIn0HcHHIdAVepK8Gd XGZzMjJcZnMyMCBTUEVDS T0XBtYJKMXtRuDphVBpWZ 4NNXKsyjCvBCvxeQactK6 vzNDiL2kjPkZwVcalnVbl TmVzdERvYzEgDQpcbHRyc GFyXGxpbjBccmluMFxzYj OmLIAckUBMe8TsKUECOxm mczIwIFNwZWNpbWVuIEIg oJUohoEhEZr3OXLaBuUlu 6cqsAOuCQhuWAL2kSDxLQ SiYQUvYBReMG47S5IqlnP tZSwgVUggbnVtYmVyLCAi Zi5rEZwmSxFxAP0fYEB7S PZvLIfnbGRyb7QyTBGeUO Swo08uvIZ7vyDiUgOfvaF uB9ppXAjnzOPhz8CekTDj CZKighwbyN3tGzLor70fx ZWxRYj1aQToKMLoqwJmHc VjA91njtPmPJt1TdCswYP rOvJhgKZyZlubZ69twM5j KHtvpvXjELKhPD6xIZNqV VNuLEWfBQN7WVKyJBuuWK 80jhRjxzLdVxssUCG7SBO cHK6tNAEbZPQphDTlqO8f biBpcyBlbnRpcmVseSBzd DFnqFX9PSIfuK9eQgMfRw UiRCBhtYlxp3feSfICnD6 3uk0yXNfqKYSdJIxgcUPb L6J8iQ5eLyjjSRUcYRzhf 9GmYDAutFRVg6JsLL0PEO BhciANClxzYTMwXGVwaWN Ue1WlRBLSZzneCKUtOBEK GFKknjggLYSjPJJMA0DdN 20NClxlcGljTmVzdERvYz C5DQByvHJwIKZ5BT8jmCi wIGBrN6AsJ5PrtoY5QAAk pcTVEmeuYHDmJR0DANJaD jIgDQp9 Intraoperative Consultation (test code = [id number]) t1wjlXNsZQJkoTORIZT7Z FRoMS8jbEgvqDf4mBjfHO OhyoW0iMAiZKfgi7shOBC 5g3xgodZBJcpsQEYnJX2e DXnoJTGbSS9wJuSrWUWhG mYxXHBhcGVydzEyMjQwXH XvbTVncDF3SNXmYN2padz eOIkeKLodVVWxlrZ5SDBk sYJxG5AtWHKmAC6eergqF BO8TXCDMuysFg4aoHXbfQ tcZjFcZmNoYXJzZXQwXGZ fvZbkCEEwROf6yE5DCeyx AFB5XWSNQldfBxivqYgho 2VjdCBcXHNnIFxcaWQgNT EwMDEgXFxkYiBPVlIgIiA 4AgZ1DiraKhT1DXe6ZAOB NEBjIuf2IWO7VLA5DJt4E HNoUL8pLFnqvJUaOGeqDs vkAEntH556VKvtBYZcM3K vV8BmVBqfNoWhZQdgAWSl TARmEAmbZSLsA3YXLWZpC WW7TwV7KIHyHEg5KMdnF2 ZTICIgIDIzMzEwNTQxIiA 7JYb1QPKGHg4xIRh1KXKq XWBcAsS9JUmdQHNyNXMtH iBcXHNzIDMgXFxmbCBcXG 1nkClsQWEaXK2KORBsTVf kAVSgAdXoI8EPH4jGAA9j QVxsdHJjaFxmczIyXHBhc iMCRthdAEFxYZ0YTGPsWX zmPCo2jvAbVCKyQfBrASA oW94df5INo7BeVX0IAOi1 lxWuuoebkH5yZVKijjLrR XfdBiFyEDGDDAsdRk1TWG VhE0VNUoIeSICORoOFZiS kYgOkIo0ARPNGZE2QNkyd QklPUFNZOlxwYXIgDQogI QUaUJ9uMORBHLaXBGmBKM YBAPmYSgJPGoAHCH4QBR6 OIFRPVUNIIFBSRVBBUkFU XH2KYhddFjHYI7ImKBPOC ITUIOSZX4rhRNXvTYtxAX WhOC4qFt8fQxVJOcLNZTE TY2ADN73kEPMAAu7NCMSQ SVxZM59DXMIPW8ZBPGaui WFpDH2XSVLphuNZNeKxs0 BgxKLdxjUwm1I2CUQonC6 nAOLtBLmffFuel00vJI6y HF6kTHUqSQQ5WPQ3TfzrQ V8sAQRtbgKyex7lxVjzvk RyNqIwGLEmVLDjI1nqh1I vtcAjvAm8fxLnsyDtgIG9 aWVudCBpZGVudGlmaWNhd PtikcO4OSUmaGKkIw7xbX VkLlxwYXIgDQpccGFyIA0 HITQxVSmiLYUcrBWJj5Wd XVjnsCV8MIrlsB78bSFzR H0WBDfzdYRayHUmCELgHG VuIEZlbGljZWxsYSwgTUQ vZY9jMI2tJWOfTx8PRKBs lNHFIKE5BP7nTQnjROFfM 4RpK8UgrxE7s0zerXhgw7 QpoAQiYF4fkPKkJA9OOQD hcmQgDQpcZnMyMiANCn0= Disclaimer (test code = [id number]) i9ttjUMeTNPpf5lpBPSyk GFuZzEwMzNcZnRuYmpcdW VvSBxjxmKeMCxak0XxC1U yMjAwMFxhbnNpXGRlZmxh cxtrENUvXZA5ebBvHFUzB ZqxVFQzMIfwKm6jvWAkmQ eqMsKlPKFuz8feocZYFDl eDgJyS169EVNpJIhpg4tt r3OfRQFdnEDzl8R2TPIWs tcfhOo8zFnjK24xk2H4Dp zmN2wnRMCtMLBiJ4VzIQ3 bFKKvLfp4DYY0TXN0HPZt FVPiW9RgFS0tMFTypCIzF Yt0s1eteRlfMBLgPAJ9t4 mfKDfmhyEdRU8znn8bgTn 0h8rwxrTzSPOsSQBkqVZT WYObC2HxcIdfRb5ccBb8z FwqXmigIYK3Fag0LC6wti 94uml3jWrkJRSqmkudFpH 3VMviNJUntrlcOWg9MRno CUUjuAR8PBSupFFyQ6JvS EOvFF6zwls3JPO3CVbpKO MaAuJ6KSGuqAMkRAOilDm sBHpfg484YAP0WbSjGI5l T7Ubh2W0aA8foGXpVOVkk LTfKwGpYUYpog0wzVEyIT kkb9XpOBT5hvQ7bSLovYU ePGCwKD36Dlmjh3UwKras n7UuF76jfLS8GWufn7yoY P6vBwH0grMcCDogo3oqeN 5mSwA4YCxjFJ8tUV8fLVA mqW7uwwbgRFRcAwJafqvr FVEzqFuxiiEiOy1nsKpyQ TO1QEdwU2qsuP6mPaY0WI doH9mhsL1zEOk1XKdklDP 4XFFhcB1cZB9rejcsg2zj VJmlDSqlHMUtwhU5zjZ1W FUcxGJwX1ByqF4gBCUlGX 3lnjtql7viUFV9GWcdHWC jNIN6DdPwBFPip6Cenun8 KoGts5FceFRpXShqR39ew 109WQBuxyWlZ9scnLRyjo sepGLmytihOFqyamU0IYV bisHav0MrIPQrSPX4XJhk BNsvwWMlBYRstGuau7jkW 3RscGFyXHBsYWluXGYxXG ZzMjBcbGFuZzEwMzNcaGl jaFxmMVxkYmNoXGYxXGxv M1kkDyOmL5YmSGFuEvHaj XYpF1xmZTkwxjStPMMvbj NmoPB5HXnmW1h1JGYtntO uaAh5msCiOnIhHJJwDJM5 NPpdrFByZEDmc0Lnmcbes PPmSk6lcZPkSBEcrU9mFH RiLKAwQXjxFX8zyFj3OPF PpKDhgHMbSjAEUQBgCW31 pzKcYZCMugryc2S3OLqpW FRzk3NynSAzE7nxl4YbEV Czt18eJD5uw1S5y8ofPLY 8TW4nk8XtNAEicFUwaWBr PLMdg0Odowfpj0HuOQUer cXhc0JaNIIzmjRabZZfSY VfpjKmgr5lwuTkBAVoBQM xL9BkddangFnlcsRmLXCj jz8parBeTTM4QDQSAKGdI LGck2LkgH4uzUFZBQS9jT Uysu2gtiMKpNZoURQkfq7 7AQEfQU8qP5zrZLCxCMWp ziGtmQDqx1BfNWIvdID6z SXpYB9YXnONq57zYNVlIX BUjfTpRKNczFlknZA2mnG 2uE5xEAvLQWDlAxf+IFRo UMWABGOlDZ2tegLik8Yct tBqxYmtFKRulNCsp1SaeB Yuw4DulJpuo7WbwMVjwOC iSO1wMYXzosluOJAqUGZG HjUDWMAqxlZ3f8BqCDZyS VEbMIK3wPrvxrb3ASJsvU 9bBTMmE2drqnxgFLgjSUP of9VbrS3drNYIvGQnj8Iu jUEduGIOzJVvTN8zgiOcQ QsLNEeFESS4mwOaPIKcm4 GnAYqnP6lwS79odLpocRe 4dWA5KEO1wJ8sRmy+IFxw YXJccGFyIEFwcHJvcHJpY GAmdUbmygRwA5YzsaEvdB 5vlLRoqaFqCD4xZC1iY4X 5jMBgFQSztyGaj1biUFor dmUgYmVlbiByZXZpZXdlZ HSbq1DmXDtjAIF6REmsxh BpbmNsdWRpbmcgSCZFLCB QiZDxzIBtPYL1RZjdziRl hqZgTR8knJ0jmLpmqW5wl OKfzSJ4pippLOZyEWBfsP fwVXNbDX4trNkfiF6lQdQ uVnQcQAxqIB2yZURrO5nq xASyVGKbADDbX8cmUwUqp V6fwDezMRwtUtIcBkIyFL xwYXJccGFyXHBsYWluXGY xXGZzMjBcbGFuZzEwMzNc aGljaFxmMVxkYmNoXGYxX HvgQ8zvNyLjO1SfKYEuLw NmhMAiB9knLQitIOQ1RCI oTK4cdWXrUG33yUHhd4bg DDalzCmtol0aI18xnWFmD HscfOmyCRTxd57hh0TgQD AjvtYatb8zHWEmldU2rB8 sZSBzbGlkZSBpbWFnZXMg u3MkNAfgjUModtFpAXfhA WGjPLEdfFUkyyO2gwXgcy FmqyZcOOQatYpqFCFfo0V hDGEuCZriv8Ccca0mnANz LROsoeAZsNnyuQZrkX0lS 0BjJREtIRNsoz5vWXYjfT 8zOVfae5SmkbzmHISqLGO tXYBulbIncy9mCAXpnSTQ QU4RSXzisYHuv3LvyeBuC 7rKBNN4RQUkXbVaLoubTD JzmRDidXOtPXXwxs72DJI obB5etLflKHIuoI6qmX3q wSvhxN2tLwDzUaEsNNcmE Y7aVTYaY6durSQtZPYpPK UxB6pmDrKelP6svEaoIYn gYvJfGySaAAxhMKT4vT== Embedded Images (test code = [id number]) [facility] [id number] 22:58:22* Test Item Value Reference Range Interpretation Comme nts Case Report (test code = [id number]) Surgical Pathology ?Case: [id number] ? Authorizing Provider: ?Natalie Ridley MD ?Collected: ? 03/31/2023 1517 ?Ordering Location: ? ? [facility] OR ? Received: ?03/31/2023 1526 ? Department ? Pathologist: ? Sandra Tyler MD ?Intraop: ? Sandra Tyler MD ?Specimens: ? 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 Final Diagnosis (test code = [id number]) u4xdcNOnHYUry5mbXLMmi GFuZzEwMzNcZnRuYmpcdW MxIHtccnRmMVxlcGljMTA 4TFDpBP5jqOiibFg2aNwt MKToarL7pEBfQUakl1ksO XB0w0xyxckwKUMhTPlpXz 9udHRibHtcZjAgQXJpYWw 8hG60VEJsmA8kdFEbMFv9 XHBhcGVydzEyMjQwXHBhc OQmhTL1PWViUL3fwkdsEV upTSloCJTsjuF5NVHbeGW eO6TjADRpIT1oyzavFRB0 PBjpFLUpDQZ7HnTrZXLns 3Miflx3HqJopDNeKAvuiH FpblxmczIwXHBhciBBLiw hDo2iPt1NMEMtG2UUNxLr YMRXKqBPUxJlCmArZp1BG GJXBY5FQaxiM97JIKCJKS 9NWTpccGFyXGxpMzYwXGZ rKZP8SNrrhM1eXmScMSBs LY8aCQNQIKQTAPIRNmSWZ YFSI8BIWcEHHx4RMOzpN1 0NX5mETHBOWUVBMBBEKLZ BFSGHKFPJHqsPDS6lCKUP YXRGE15GGV8RHAroCBYuj UkuLBRkSLjsxG3sQQMdcv pqAJTsIFJ8OoJ3RRUXh3S xjEUjYI4hKEH8MLGbz42h OR9KEAY2OcC9RtMwDMd1F jThRO7jvAOqLYIkrv70HM I8CpQig6V9AZGhKdTiWMR bWU3cmWuxMXLrBY3wPUQk T5gciD1dzhc8MjGuHZWpF uQ2WJNrbfS3Uke3AILnWC qeh5uzf6JgP7JosYNsmQf 5w2nySPEvGyF1zLNkHPis G1mxshHkhCLyZJNiHNr6z GybPqWsFJOzh6mzkfLrWf NoYXJzZXQwIENhbGlicmk 0eM98BZZziZ6yuIDxCMjk afFsObV1PSwzWTKoOdM9G LAamSRtLWDkE8lvUGFnLQ qzHWSwWYqybDBtUZZ2sCy yt5J7uDFkgBXjjSroVaEz QfMrRBWLn7RuTXp7hVklH 3NqRKSnKwU1fMOnLUUdXW jlETVdPCFxvjV1xV38WKp cwjT9wUZdz1Plb26mw247 nW0ybONjRQV3UUDiAJIkm HIoOYHmTAU9OIMupHSsT4 fkKIRdQD0dtgbnEScbYGi yEGRjbUX7HPSgbISpP1Nz MFZzPAswMXGvcps0LlFbY n8xpUApzJblOUpns0hye4 ojdIBrZzc2DJEvKbBfIvi wILzzg0Pmx5ltBYCscj5c FRC6mBLtrZmcn4M8aVTbT NJwpRVktpHsENSeWkV2QB arTP4qdd86ITUsAVR8bu5 ybGNccGdicmRyaGVhZFxw R3XuYXJud648VKGaD1EoW ANgh8Z6thYuMfRbZSAwtH G0ttK6YAKiUGg9hDIwtpI 3ubDkzXEwI9zooT9mQEWf QQ0zybxzg5olDEpnRIgsS LXnxPY3zkO7RHCqhWKzH9 FefE4uLDWbNEotHCXezbq 6NfYuEl4wcDBmrTigPVby YmtwYWdlXHBnbmNvbnRcc GduZGVjXHBsYWluXHBsYW luXGYwXGZzMjRccWxccGx giB9nZoQeXnJoCQcsSH0v YZUfC9xhbSPfDVTxRRHgU 4wdFwQalK3iqKjgTNroCl JcZnMyMFxwYXIgSSBoYXZ lIHBlcnNvbmFsbHkgcmV2 mGM4JATrMUpdBGDcJTXyf UWemh0xuGguGWQpYG3vBH FncmVlIHdpdGggYWxsIHN 0YXRlbWVudHMgbWFkZSBi eSByZXNpZGVudHMsIGZlb Scek9Pxh7AyiGE6jY4ia9 yef2YmGUYwmZH0WC39nwM 4tF1kXXFiNY5uKIRoDO3f hAYcaEFqFKCvr15nwCvdz yByZXBvcnQuXHBsYWluXG YyXGZzMjhcbGFuZzEwMzN caGljaFxmMlxkYmNoXGYy VNeiS7pvBnMjYuVzXZzqX XJ9fQ== Final Diagnosis Comment (test code = [id number]) t5sheVIsELDwtUBvIGImL 9gjadRwQHOqvQZsG9Ojya ylDIzxWW3iVD6iaQsmrVD ygKPkVWRsFaBig5odo055 pOCkk3bkGRFAcbvoeHx6s CqzX97tg5G7AwuiD5aaXV AiAPxfwpSngnO5KPIilJN tAHk6BNZjfHSateHkClYo PTRusGQjoVQ6TXOnIJ5hu ebiCVqpNPktFHOuhqF6PA OddJKoP5AtOPFxBD5yfjv iFDT5BBcgXBClVXB2NjAn PBGvj1Hzjtt7EoVpvEVlR FxwbGFpblxmczIwIFNlY3 Xwb87yAPHrh0hcSn0bXXV pbnZvbHZlZCBieSBtZXRh g7OmuEuqTQIuVF1hL2MsU 1ial88lGKjcuYQgMWXhrM FujkKwu9TeoP7wzBKwXKO wseIjWMAwHA7lSNGjNSWo BBqtWWIph34nbhDymWKwr YNuIBWtXUYoFEA6X1XgpK suDOtnTkVoZW83aPK9hA1 dWVW6aLNgNK0gsv3ul6Kc yN55daTrMEVqhRu4FI5qu RCfaMBtPS89Y7rqqFvvSV HoRNZwq4UwX1CgVoRuTx2 ukPHzqwYvtXKcR3N3brGl LSYjVKTnc1Sfma5muFfwi NFyhCJglR9rkSLkIHAnXO Bfm39mWtWSjRWhFKFyWQV qGVJ7kC1clOSqxSpcOXZw rKbwNSbiYIgidl55gf3vo 6KvmlJ0NFfuE0cpq50saE yvOBnaVHDae717eDtlCK6 vWV17W1qmh5tiPPFiKQEe foRamjDuxUH3w8CgJwXNZ 4L2lKIbKBNnfDk8f0AuWe OgqUe7agCuZTKrKTTse4U eRK7jNPXajbygNHYxFrlw jJ6xdM3geYuatI6tcNLwa OJ6ntukHZQwt3CdPKM2TE fqyFwxTGG1nF6kKWKdkIs nLRXubS8ok3UfEVPxFWI4 pi2oEfIux0RcuKq2aIY1N GZvciBDSzcsIEdBVEEtMy wgRVIsIGFuZCBQUiwgYW5 aDPKgEPEfZHfdrFe9XDAs v9IuL9yjNGcmEQPDMTdrT KRgXQYAAPKhJW7pOVQjCK Ies8GmcU6ed6izJbLnAES 3uTEasuVafbZzeA4moK0v oVufeo74zEPoAOE8uIPnj xZcJWZfABUnm1Ysa9poVJ 7dTKWcTKBpxHBxamxsxO1 uXHBhclxwYXIgQnJlYXN0 EMKey91wvfizzdItaQ30p t1kwTHjchFzz0EeWMGwAP Ppl8BiAGZzu30bRpkuO7e cAhLys9l1gEV7pQNvYi7w aF81yL6uNDGao0AskOOwQ THdJKQkoJWgGNJiA0TuQ1 lmaWVkKTpccGFyXHBhciA yBJkqXLOBXBJqe1n8kIPc QMUyQJRlUZH7hWJny8l4u OF2MUFimBLzn1WdF8IqxA NyvB2dFUXuvYGbiuUgxVG pzbAyeLTmvchdA1gpLDNu ACBhVSfqnlLgWMZbl3WdD LWnCiKvCY0rD9ebHLBcWI TkUU20JBVfCYoqB25ycBD vbCBjZWxscyBhYnNlbnQu XHBhciAgLSBcYiBQUiBwb 4XpwYv1DHzxUAEpmvQjfL o2ZVhwsVbkZXLhHUQ6kP5 yXNTnyObfCN1pJSVbKZMh ZZ52N2agDTPqq9ZbjB9cl mdccGFyICAgIEFsbHJlZC AaD49kCGI6PLkgOtJ9UHf ccGFyICAgIEludGVybmFs CZJzlnEzs6veB0CxnIEzY BVgLS79YiucVRRhWX5mAX KqCVFhFASueyS2QR3oC8Q 3mNDaPJryVpxfTGSmQL9e TOP2rT5yRPLnwOlrLQ4zy ZIvQM8kbFFwq9IilQ0mpz dccGFyXGNmMVxwYXIgQWx eCIR0mRJzdcQfBBRdatYp u9zsRTZoy5cpICYune6us fjjnPEysuGdW8Ckzoi7hQ 4gXHBhclxjZjBccGFyXGZ zMjIgIFxwYXJcZnMyMCBF On8KTuYUnMY0iNVyiKQgS LP9ARAfhC4kCPM7j7axOk BrzuWkjZ52my3iyqvdaJO 7gJMtMUKmJBoqq0l3dIJd h71sS8qnupAkKDCuqSicc 2EsQVDkSYLAWUWrn84hUH YKDFXyjbIcMSHcW4vtygS eGMYbIlEYPBRdQIVtju01 ZWQpIHdpdGggdGhlIFVsd UScSrdzuxTFqoz4MYCwQV wgREFCIERldGVjdGlvbiB LaXQgKFZlbnRhbmEpLiAg ZEMqob3ctmwdkQSfxlPqU MOzksSpDH2pUBPyj9v8eM MzEZGeegNlh0kuAEZzQEN 2j9BeQvFsZJfqOUEffrKy lk3fjqZjEP5aFHQkbJBis VQkfXXdRLQnYnRsruL4VB qfQER5WTHyILXbj2HweQ0 vBQBpPWRBOD2KC4PBLDj5 aWRlbGluZXMgdXNpbmcgZ j7egPYmpU6iDiy2ABTdrQ PxUANgkK9rTB2hUULxLOP lw6YcjIgqcxByFBBegsny YXIgVGhlIGNyaXRlcmlhI XPyTDOrKs7dWZUosP3dwY xgSxKUKg1JDvRVtQ93ir1 ycMEmkXZ6xkqvsvIaqNj5 rfTbbkMdbA3pNFZys8ExT R0uWDH6dRBeQBJnNHRUHC AvQVNDTyBndWlkZWxpbmV qFyfhOPEraTMoRKYjl1d2 sGMuPTgaJZO5WFDieBepj gRjshHhhALyhFS2zmRzEO wgbmVnYXRpdmUgbGVzcyB 0aGFuIDElLlxwYXJccGFy PWNifEUbAPPOB91aTIsax PCtRIIzrvm1lg31LFf3bi BhZGRmdDNcdHJwYWRkZmw zXHRycGFkZGwxMDVcdHJw YWRkZnIzXHRycGFkZHIxM DVcdHJwYWRkZmIzXGNsYn MeswGrPoBfsq0mmjGjC3z heyEwtHsrjiYauu5jBEwp rERgHSNtPTVaNRZaf66kK NTxWzCmwyKkGaZghq9ooy IuA9a8LYA0AJz8UBLzBwV kC8uxpPhsOSJmf0ioVMZf THC3CnzdHFyxcATjXtHrL 8kodqXovWgxjcRjzp4jFI tbwKBjPNPqLMQrRWJwl75 eKVGzXtEmaoGuKcVecb5j ttYgO8cojyAyTqytamVjl e6eTWqnlJJdgoRsxFJlB6 lkxFJLtKU5hWSuX5x5N3l ihXn1HiO4KQKmpAt3ZCIt MlxwYXJkXGludGJsXHFjI QGRH9LTCjJOD06vM4XMFw VcGJKDSPxpH9YxoNguVLT kXGludGJsXHFjIFBFUkNF YkJPM0JyWU4XZMZZDjFrP 6ZWPYNhE1AckPxcvlDztB eny7jtxFMmm0ObrPSuMPL dSiVtPQThnKLrLCUvF0r9 pyOdAUXlKRE7OQIslUDsV BKiR2y2idFlKZNdWXS3DE PbhCJcFLJzG0bjiEDjTQK 9HBAlFIPlh14mRVJrKqWo ywqlIrDagc5ifnKmH2uqi kCiutuepcQjrb7kYJftgB QbELCgDPUuHICkz41mLGH zyxCjsMKooLnnhXI0w3wx ORWxT6jacItYoBV1pTNxV bGnH0HvfUe7LcF6EPPhXl YgkbNrAxTrjp3wztWqU3w aieRkqRflhhRmac4kSMqp uVVgLVUlPXTjKSDnq05fF GDtLcIgmuLmXvWcqq0gfd TzI5z1QGH3EKw3KORgEoY oD9sntNlsFXCzi7npAFIe VMG3NvmpFDebaLh3McUau GFyZFxpbnRibFxxYyAwXG NlbGxccGFyZFxpbnRibFx nYnGgIYMuxBqafZ50Urbx oj42EBPjm0woHSYxaYOyL NS4O2u8dxZgCQCjfSXjyW JnXILhtVBmZNd5jwArWEY mcjNcdHJwYWRkcjEwNVx0 pxElOXRkViShH2dcycOis YijjmMbzp1cCOlajDMjKX BtRYShNZHtb52wFSOmNhC gtmKePsJjtd4aqbMrU0uy siAmRjbxqxQkyk7qZDeui SDpguDaaYRaJ4mjuOLOnE N6lZAzZ9y8J6vhmLx3RtT 3NGUbfMo7MKP2XocpjEUd TEX5TNLjCARcc29mXUBwR fSlsxfbQiUlbe9fbcTeG0 jyonHzulaztwVdsf4mAWn hzEPyMACxYGXoPWJjq65i TKDotjFlyNAxdKeqsCG9j 3kcAAEvF9zqkHsFoHX5vJ QkQxSaN4SszZu3KIRnFGX tinTspT81NeatlYSkJFwo BRemFCCxiqAkjN81Tclxe QTwUIUmRQCmxRumrD70Ty iuqi96MCBwo6xxRLIqeLR xFKE9G2e0hdLjGOHjhWPj bJRqGBPoeJFpDHp8akZrX GRmcjNcdHJwYWRkcjEwNV o8iuMwJUSmRlNhR9mbivS irBornrAnaz7zAWqcxJAo WQQiQHFsJAImo04oAYMeS hTlajDlQkEbfh5bljHbP2 kqntAtZkrudwLlgp5gUIj ojHCgpwNnkDCxI8fuzWLH gLK3gSSbX2t1W6wtsPu1B tV7CFPbwHq4VVA6ZxivqX HqKLF1AYZwFVGmb12sPED vEsFvyaoxMyWgnu9tpiBn U6mqxkXaspgxgeFmhc7qU VxjbGJyZHJiXGJyZHJub2 5lXGNsdmVydGFsdFxjbGZ 4i7eqZZCvG0azkGmZnHI4 fSAtXsUuZ1NizZm9MYYvN IKqsdKjvB83AcfngWEoXo oqAXkbMGIlnkRckL36Cnu enZVkGN1dULZxL5RaiTlo tuUbfHqhk9mlpXMvo5Ylx HJwYWRkZnQzXHRycGFkZG KzR4z2lxKvGKKcWBT3UZM jdCZePLQkA8c9jtZuZDOf ILN8ALUtpWIlYTIhH0yzi GMcFJV2PESkYQThx81gUN DfIdQpysnkQfUbws9odtV yI1mfqpLfjjxmrlOxyb5q ZVxjbGJyZHJiXGJyZHJub 25lXGNsdmVydGFsdFxjbG H0b2pgZBVrR8bvxZjKfXH 5xTMyLoLbS0ZiyAm9VpK5 RSOtNdJwmwBuHuQghq7mp lQxP6dxojJwcYpfinXdoi 9uZVxjbGJyZHJyXGJyZHJ tx25tQVXrCaCeaqItUaUn tb4zbgJpG3f2WAN8OVp1T KGgHfWaB3swhPinABLov9 qtZXXeLWM3SbnmDNzrdSd 1MzJccGFyZFxpbnRibFxx YyAzXGNlbGxccGFyZFxpb uHdeNllKvRkPM0hSwXxK6 KamRidygUjnIjty4nfgIX mh9IgjSZdTKVfQyHnYUPp aSByDSMpC6o1lzLsXLKaB RI7IQZtdOYsHPMwJ3x4ao SfINZuUXB8ONJvxRUbMOJ eN7rsdKWqYOK8QAPtGDKz n64wPFGiGsFpdknpRcMsl g7xitVfB4sioaDbeqslbn Vqdp8kVVlosBVlCIVcGRT hSUQzq96eLQOkdoLnxEFh nAczsPS7k6trAOIvS3umr LvEgZG3kFWjPsVuK9OhvU m2VaQ6TNTrRuSawvMsWjZ czl6reaJjI1exgvUyqBaw xjMeka9xPCploYTtYEWeM CTeNFYrc55fDLMyIcAdwx LyJrAbhh8ywxBiC2d1SJB 0NVq3AUYrPfDtI2gwzNlr GCTqp7dwURNmDOR4WhknB DrteUa1XzOpkXMsCIcysm UisCfxKgQ3WBLkwJqdwPU kSEsuxpOnvBbfEmFyHa56 OeWaC1LxdJujwtJmiNfzs 4apuWIjf4OizOTwjSXsh0 r1kaGsPCOicYGkjTVqTCW kZmwzXHRycGFkZGwxMDVc dHJwYWRkZnIzXHRycGFkZ HIxMDVcdHJwYWRkZmIzXG MfHbYulzEwYaCheu8xsgH eB2buedEjgLixrkUiph2g ZVxjbGJyZHJyXGJyZHJub 25lXGNsYnJkcmJcYnJkcm 7ookTzT5s2NZY4NPa2FFC vCbGcK5yiqApbPZUnx0cq CWFtLAF4KzchZJmhoJUwM eNpD6qpvnGtcDfapeUucm 9uZVxjbGJyZHJsXGJyZHJ gw91eKZPhAyPsyxPxDeKz qw2sxsKkJ3dbpgGeHxzjd sQcgw8oDCbljPRtpyKeyK JkN1qylQEQgNO7wWRzU0w 6J4xtfFi2GtE7RBXxmIv2 ODUzMlxwYXJkXGludGJsX HZcNNQmN9FtlXobTILqYR pjfTVuQFKtED36LfDzY2W szSzeysFfpColo6zftDMx IHwsKJWmpMEvf1PkgHCcQ WRkZnQzXHRycGFkZGZsM1 w5nlWwDPVmQZB2AGIbeLY hYXFpU6l3joHtXZOrGDI2 DZSefYDnUOEnI5fpqSWaW HQ7JADrJURak23uHFPkDc EwvqkmZrGodm6vxvTcT5v iisLexkrjowFvuo5iZMmy cWQlSCBuYQTcYOQlw63uE EZvbdOzrWTikVowwBJ1a8 fnDUEsU8uaqQbStVX1vCT zWfIhN4RyxMu4TvO9KFCk VcQcjtMpNrHtui1eajPkE 0xuqwFsjQggghYjvt0tPG sebKVvGJDoKLRqIKXie87 aBQEmIaKncdPmFyCmqn6f zgBaT7w7PVR7LRs9GCJfT yRlK4qcsDjgXNUdg2cgFH ZlNKP4WzgmZSkrtHj0MeA ccGFyZFxpbnRibFxxYyBJ MmPBJqPAXCasJ7GIYmKzU ElTKVxjZWxsXHBhcmRcaW 43AascuFAcGQ9QDB1IUAY OPO6WYPZRX9tOLXAJUQnd Z9LsrBhmrxVvdOkeh6wgp ZXrt7CssABjOYLjAtLdSU KqmRQjKEEpG6d0tgBpUCQ yKQN5KXKmrUZvFBKwO9a6 hfQcELZkPPX3RHHgdUNcN OEmE3xwfBLtSZK4OPXhIU Ayh70sYUJpOxCeinfeEeC ulb0uesQqV7zvfyGybglc ndYyeb6xRShxrXRtKNYoG NPdSIOgr51dKWQflyVjvL AjqArluAW8u7cqEOHoH0o rxGhRyUZ5tGWcJgVhG0Rp mTy2ViP9QRVyNpHwssFuO qIwrc8owqXtY2egniQliV phtvMgbw6xTDuliODuOWR fMRHiWRUap46pHTNpTlJn vcGyGhAmfh5icsYjT7u6G US7SAf0IRCfSzQzP8hucX sxZZCxf9alLSXkFXH7Uzg nRNglwIu7SnOmvVLzDAoa bnRibFxxYyAwXGNlbGxcc GFyZFxpbnRibFxxYyBOb2 0bUUStuKnpvJ86Pvqpfz7 0PSLik4raIPKeeAVoRXT1 N2e6ljVoIHEtyZHfrRGsN EOknQWhMAu2njMfGOVdhz ZloIKmPQExweQxQKr2bnO qVIOqLgIyS1ikmpSucHqa neFnpx2pSYogbCMzTZGsV QDoRVRnm89pDQJzZqYqrg TuJvWztb1kgoQrQ8cygyY mGbwzsvTjos5qDPuhxBUf mmXsrSJwG3oszTOJiNL0l KHwD1e1M3axiKk3YtO0KB QmiEr2EZDgDezokBCuRFS 3XLIqBPTjg13jYDFaEfMc jxcpQpYgtj5uzkQuN4jnq kKievxnbbWnmr8dVMpoyR GaJEBpJGIcTQNce88hPZG pmyMctZByfMrplBV7n2jo LNEpA4hfaJaPaST7gRSlE NCfG8PiuSi5IGKmSMDheo ImyR77LhszrTDuQXxlXLq rUXVxnaKhlP58AiwllHLt N7Zkc4evSQhpQYpylMPuB YEyy4b3xf00CDk4vtYjJZ RmdDNcdHJwYWRkZmwzXHR ycGFkZGwxMDVcdHJwYWRk ZnIzXHRycGFkZHIxMDVcd HJwYWRkZmIzXGNsYnJkcn JaHdFpze1xuaVoA4rqndM chRgschYiev7yDEzmwQEj IYOsHVAbUUKye99xQTEtV fKqkhFiQpIdsq9cjoRoZ0 a8PRX1AMl8BPMnBjIxX5r paKrbLQZqx1imZVCoIRXx BmdiEQokrKDeBmIaZ8ukv hWlcEapidPbsm1zPAefqH QfYIRbEMZqEWYym22mVHR kCmYyxzImCwHfnc6buqHh V5vzssNzXrrirnIzvd1dR WvypDPdcdRcmIUdV3kvvZ FVkIQ7qRClM1c2U5zpfXl 9Fgv1PUZrsMt7UIMwUdlj YXJkXGludGJsXHFjIDJcY 2VsbFxwYXJkXGludGJsXH PfVQvxmVDapNQsnOL3WRf qJOqrWXprhQKyEQHng8b6 ly21VNavQDJ6bc16MNUmg ILyNTO7Y5y0hcRzNWUkbE UqvJGzBRNssHDjVGg7guP hZGRmcjNcdHJwYWRkcjEw VBs2laAyRGQpOyZyQ1ddy gXiaRoscaGjuk3aWBlrdC RkMDOcHPVdAHBqo62iONW oNpKemyWrUiUsjw9aosFz T1buasPpOumhfiOovg4mO UivgQOdfgWdcSTlB8ykwN BAxDB3sDNkR7h8I7wbaRz 7HbD3IOLsyYp2NWTlXcbl lYVxMWI9ZRNsEHMfn90cC GSpNlMehgfdRtSraa4nuz SlG5raqiNnmtnmlaVepn7 uZVxjbGJyZHJiXGJyZHJu c22wLHVlgiVctSXnqBptq UO4a7itHQOoQ7axdCzAaL B9pWFjJOCuY4VlqAl5IYM hCOJnwvYbdA80XnevmIGu G5inLNfvICEblkUwfK77Z rcaoBUwS6Qrm82uNKAucN fmxE40Eibseh51OVXskeY ccWNccGFyXHFsIENvbWJp ucNmBUJvoJJyGCAgz1ItJ gztSAMuED9EVAwkJ6NTDm MfNHZAVWM2OGKEMMyxILJ uoUXjGHQbg3hkCHVxzCQx AXI6Q6s2cbNnRCIjdZWta MDgKNZdcPBlLFw3neEjEV RmcjNcdHJwYWRkcjEwNVx 3wbCjPBNnCzTkW9tlyqWi fNmmmzEbhh2sHXwpqLKlY WHiHXHfLWRek92uXUHkYd WterGzHdHsft3taeHeG3u uewQsYvkfokZowq3mJQzr wCRzdhUntCQhA0ccyAGBr LT1dNJyD6z4Y2zkzRg5Vp GbKOQqqAp6AKV7BPiphKS fOCN2RZBqLBWuy98cTBDx DrHbzkwlHjYiqu8ibqOsG 1bgmhLvailrwgZwzw8zOL sfiSXmGUPuYVKrJVArz20 lXGNsdmVydGFsdFxjbGZ0 x0kjKVAyA9cocOhThHL1v BZnFUSbB1AksTc4FOLzGZ AcrgWupS36EprgbMTdVM5 5RRymY3QhdqNoA0HeuJkw YXJkXGludGJsXHFjIElud TLlhPQacYW2mG8jYOKmnY ogtY20Kzmnib91NGIgx8h fRZFrkRWxTQE0K5j7vrDp ZGRmbDNcdHJwYWRkbDEwN Oy9ppMwFAQqenFrxQLlRC CrmgVrKDb4vnPzZEAsMwR vO0qbguWbjXzmqsYyvr3r ZVxjbGJyZHJsXGJyZHJub 25lXGNsYnJkcnJcYnJkcm 8navQyK6xwsvSzAoonzbN ufi4eLEpmrLXfnkKryDBx Q4uyzCXIqLW9dQObX9a5Z 3ygwNo6KaWaYYMzaHo1LR L9LHzppZFnSFO8PTHcLAQ kv70sVQXhIqYwpjugUgYq yq2fbqPtC6uffnQhjwhjj yIutn0yBMmfgEPmURKfRM IlJERmo41nKIAuvsQkwQJ qtSjerHY2p6jvECYoP0ac oXwCxLI2hZPkYOJmK2Lfd Ag9LMFdJNNsqnQhkE27El xccWMgMCwyXGNlbGxccGF yZFxpbnRibFxxYyBOZWdh wEw8LEqsCXbgVCqtkOPdX BLvv2h0en94WLzxVGL2dv 36YOZjgZNkHEQ2X7r1ufN hZGRmbDNcdHJwYWRkbDEw VQt7rfDyBHFohtGfmNGoE XDhvhQjFPl7fpTuMFZwJg XdA0xurmStwWekofScgw2 uZVxjbGJyZHJsXGJyZHJu n96qEBYbHiXrdkCgYnHzj w5qtgGzC8dipsJnRwhqdy Dfxi0iAYypgIYrupQmsPD gR6woiWJUoLV0vVLkM0t7 X1xoyAb0TvPlETYhsYd9L KN8CBzpbXXgTME3SDNsEG Fdz04nTRKdYlPakphaIpB fbh0irfDdQ0wjjlMnginj ovZydg5aHMsezIKuIEDeQ ICpBKSfd57kUNKfubNzmL DliZeeuJM6m0mxOCWfH8d uyKtQmCZ5yGNsLHZiP6Ps tBe3DJPsXSGcbwAggU74S ztxdGKzZzv6RBIzJct8FM uzY2YdrVnjVASsQTckbRZ eWTKaUWJmc0b5uKDiOVNo qLrvjU85Wtcozc33URHlo mRccWNccGFyXHFsIEhFUi 0yIGlzIGRldGVybWluZWQ zkZIgogfdQO4dJWevj2Ul eXybHVWui4PykYErfx0zK XNzLiAgVGhlIGluaXRpYW wgZXZhbHVhdGlvbiBpcyB wOVFad6KgEITqvMPnavoc EC2uoH4weK7kYJ32fJ3rt KzjPIWiO7fqfAE3EPS7nP EhIMOaxiPkCda4CD3ors3 zkM1pCYmzSZ23pM1FSYNl N47nvWKzyeNoZz8vjAGqT 5sdmrNpFWC7ZCOKFOIgXA Vjjb73MCFnHCKswtHzksF pIHdpdGggdGhlIFVsdHJh NrhaxsQYqzd1HRSpOLzuO EFCIERldGVjdGlvbiBLaX QgKFZlbnRhbmEpLiBUaGl wYUwuKTDszX6gmEQdXQPn fHgvaCMvlkUjyAB6hPAsa KdyXRBhBBe2jWOcAQ6qP9 X6uWPhIYcuCW7wIMFwXQC 1KTbnlL9aQQWxfeLzq0Ec oQl7WTHyOmqld2YocX3zb vatBfQpHIpad3FfjkHmpA m0zfFxeyUuX76sm0zvNRT yGBPrzS1dzW0xSUOdb1Me CGZaBXZhZNEjUEXlaL0vi LAsVFEjdAo6u3KeuYOnLl eha9GizS6gyxnlEXCtWUT yZWZsZXhpdmVseSBzdHVk pHWdAXdakFdaXsr1b9Anw 2NlbmNlIGluLXNpdHUgaH licmlkaXphdGlvbiAoRkl TSCkgYXNzYXkuXHBhclxw UMTfBYbzjoZna5VuzVThB S5sRbEteRQyUg9jeEYvPI 6kGHAmjKVvrrSapQJuqn8 rFYNdRZGyIa3wnQNnmK2o Pnl7TGDaYIFfvgVpHjwmI KHlTjBqMCAvEYEgt1P1TI 8tBZ4lfTCfftGkM90ziWK uiNKpMKrgJ5rrnND5ZDit cHJvdGVpbiBleHByZXNza L7lFXGhe4llrCC0JOjghO JvdGVpbiBleHByZXNzaW9 uVOVmKZAnhlYyvz5ijMKe d916al0bPNQntqOnxeLcU HDvljZdN64mcQWjsMDabp Sros69cOgcWVr2LIZuTVX arU4kfNgpAKM5MQr4GYVt k76fx5JekTtyMLNzt2S4O cMjPYirWEAmy7KgdbssyL VbcV4xhXKsGQCoUJMnjYQ pOEReJg2hkM59zzFeHMTj d4BfnE5mRGSqOYFqLVRRq 9hpZZefUM5yVYZkHDTfR9 NuZWXqjLbxkH9moTZ0xdT wdxEkgDngBYHoYRXxM5Xa KFDgK9uqgZtll5VeQ3qwn uhqGJvxN29fw5fsH8nqzh 4bezOeW5WhZWYhrG6dRT4 zTXWqn5FibifdUa7fZMrA XsMqb3PylAUaHZhePMvgo mFzaXZlIGJyZWFzdCBjYW 5jZXIpOlxwYXJccGFyIEh AZf7qH26roFwmmBDxDW9U J0PWTRFXDUhIFnUnGUOXR XNpGXc1XDBulnYLbrVcaE FpbmluZyBpcyBvYnNlcnZ hAPYazgIhJK4kyaQvHZTs pRDhvjylWuZ1hKA7BEqeI BahM12gmNblvSQyDN4kPB mfJKLrqG42LUWprwEewUR fEeycXQPfEPF4cOEqlJ7g ZQAyRC0cFYmue7Vyp3Fhn WBqi4WdJ3PjrIQcIQXthc xwYXIgTkVHQVRJVkUgSEV XTjAHBLQPPUmlDgz7JLRx dcXUkcTdmEDsFQOnRG9cx KAyDX5pQHM4SMyafB5cCD RoYXQgaXMgZmFpbnQgcGV yM0YhlYkcpZMzSG8cVRvz dGhpbiBncmVhdGVyIHRoY W4rQIWtLI7bNRK3yE9rXS NlbGxzLlxwYXJccGFyIEV DQKlGH3ETOYZOHCDcDIMN B6NwAGAwNViwvQYsMQQjh sS3mRStmeDobHnduYWiEN 1icmFuZSBzdGFpbmluZyB 7fKZ8VXhpHSMsuFFkJVXu CIIyIBU4EELlPTCjMN7hS CYjDWFrAAThFBA3aOAuhO 3gN7XeJXCbdhI5hPPoEAH uJCAeXpP9aS1sucRpHMbo sxUidoDknOZztH7gNYRiq nRpYWwgbWVtYnJhbmUgc3 ZndK0dxccijEipwMHuxdV gpkBxryRqWSHlBGP7eROs zW9gjGAosaC4cGRlBH8mQ GVxdWFsIHRvIDEwJSBvZi V7fI7tpcLaEKonno6vbIS mACMjkqBAU9GAWDbJGAFA BCBsXWNER8QsCUOfZTqer DJeLYCcdaL6wMKqwhRkaS vpgKFgVG7htzWyRPFyuTD udhbiTfO9dZO2YRtaPDWh bXBsZXRlLCBpbnRlbnNlL ZMuzrAmy6y1gWaiAXvmFJ O0KHDusLhexpCrAAYml0O ewGToo1EiX1UzbOYxJNOw ewbuZKVgm3WhFEAhm4HzX HOcM5YnR3ntXP2ziPMhgL GmrZvaKZLZD54oV8KNAYq 4gDYczCsvZQDwx0IgGKAx UFIvSGVyMiBvZiBmaXhhd AsafgTwekOuHQXwzjI2tO UufNBlxHKsSSHmUPWfj9T qPWgjkoJbf1VfIYIedNKv n2ZcJkHso4LzviYijtByy CJgdB5tTbQloD22ffQma4 FeIf1jlMEcoN6eDQAkojg bOwAng2TxYWXsUuVkMM5u DMQ8HIWWGKTErJHqy2egr 3QsIEFuYXRvbWljIFBhdG fmhT3qrB5uuGBrGDTxXEv wYXJ9 Clinical Information (test code = [id number]) 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] Gross Description (test code = [id number]) s6hklNNkTAMusRYEOTT0F HYxOR6dmQcevKg4vAwqZI XtjbT7lGYpJRqyt4bpFJV 7j9rxfvQWXispVVDqJT3i ANohNOEuNH5kIxMdAMKrO mYxXHBhcGVydzEyMjQwXH LrhIUbcCA5LEOtGP1oqee gAYqkIMvdAPEfyeA9MAZu fEYfE4QqGZWjNX6yrseqV CB0MTSQWfvsIc2vmUTeqO tcZjFcZmNoYXJzZXQwXGZ ahJhsAIDaGOl5eM3BUaty L06bk4I7Zph1WTGoWBItA 5EfML5qALEegBQvQ73UUt emWBS7ZJPGBjwtOsuroCy ro5FhkHUqZAPuBPfvdWKz NTEwMDAgXFxkYiBPVlIgI xS1AhG4ByqmTrA4YVl7HH YOZWMnWnc9UNS4MRG4TUo 6KSJlSU0lETcuyOIiEJgo XldsHUegS110TTaoPXIzN 5JeL9FfQJmkXkCgAExwVT CeCFSuOLvgGXLdM6WIQHA aKMY2SxJ5KULwBKk3ETqh A1WJUDZzEEBtSeYcGNEyV yH7GKj7KWDJXp9qXHj3FA S1ADTyMPP4YQbtKHVrUNL gMiBcXHNzIDMgXFxmbCBc WO6tnFbdDICrFM8PUAQvN KoaVUAbOqHvJ8YVC7bKBT 4gQVxsdHJjaFxmczIyXHB ptfIPVwyhZKPwWP3FALTj FTebXRv8qhScZLVmEeHfA NNiV44ft9PHz2RaSH2YHO s1duZzaznezU9sJWVoefF gDQpcZnMyMFxwYXIgDQpc U2KfBGQcGQGsoRCuFOBij MZbskAwIKn9FCBsOrLpl3 dzZk8bZMlgrOTng9TxsfD 9rEHzYJIushY7xRGqgOwc biBsYWJlbGVkIHdpdGggd GhlIHBhdGllbnQncyBuYW 4fNPZFJTAchM1tLOHpKMQ XYsYvesKtQsEdJu5rdDMA pF6rsdTfRD9xWFZrvkLbc 6KaJZ7lANRjs2dmH3vmQR RiMGwyJH46BM6iLUmtnyW qbeHzAVVyb7eaXUAce6S2 VAMcKT0bTKgxYX0wMCugG X69EAAfZQ6uL39vHBPeRW VpRVNhJKQaTYXna51tyYu fNUIlPL59ZOJ1mIDuoIBn SZRtOyGdjWcpt9RzFhEBp ONlj3BrA5wqWR0cgHDyq3 ZtxIw1nFYoKGGykLmkFZd 4WHDoluNxANFhXD0fwsAn d1KgfCkedePdjpVYLCbyC g2auN52tL2cPVNrC6UlE5 oeqBCfxMuebg9ksWQfAH6 KXHBhciANClxjZjAgSmFt zDLvU3EhOLEjZ9djZO4WK CV3FpQ0WgLiSrCdICh0Tk PwXH4etZUiBY9AZWRaObC gDSJdR1tiHUWjFH8CBEUq MSANClxlcGljTmVzdERvY nO8YGSuiUTtGKP4VQ7rhJ yaUXOuGPn0YPubWKDnB5E hD4IzNThmFbFnRXqgGRJb FLNgYEoiZNYjK6DOTOQcS HW0IrU3ROTwXZr3ZRyoQ6 QXGIQxLWBaZiYuNUG9GjX 7TDa1TWDOWe4vEWr7BKjx TNs3KQA3HBvsPTXlDBCnI iBcXHNzIDMgXFxmbCBcXG 9tkDfbYUOjGSHwMQV1NMG gmEYSv4RvBBZwPRinI9Hj XGZzMjJcZnMyMCBTUEVDS J2PPzWGINFbZnKcjUBaAN 4XJCJmkyYyGYawtXvbwV8 gmPVgR3viJnMhPvuscQvm TmVzdERvYzEgDQpcbHRyc GFyXGxpbjBccmluMFxzYj OqCWWerUZOy2RyWZTUPbo mczIwIFNwZWNpbWVuIEIg oWQhodEjGOx7RAFwUdScz 2spjADwDUaeLKW7kWKePO ThZTHmNFQuEI50I7BpfpO tZSwgVUggbnVtYmVyLCAi Oq9qPWnlMuKiOH5xLOS4Z RPoFOgmiIWlp6FtHRAaAU Lbg86wdYF5opWaNxQucrB uI6dcGBrdjOZrx3AbqQUd FLKtqppasD0fOeKoi42kq BZrSTu2kUGhLIUperDqUx FiI65wsmYzEVh2VaCakDJ fWeRmfGVgAavnW68ttZ3f DNsglpXaQPXnIV5tTYVkI BMkRMXaSDQ6FCEcSTsuIM 80vfQuchUqUmrjTQA9ETU qOB5sDWVkSMGngYXoqS0j biBpcyBlbnRpcmVseSBzd HDmcJV6YTYqgU9vFdSiNd WhHZBvsHkye8jrEaDFzY8 0tp6pKDdeWVDvQTcnfFCc Z1Q7qJ0sCklwAUSxKTjna 4DrMRBdxTYGz5WnLA2XKQ BhciANClxzYTMwXGVwaWN Dx0XuSBBCVdxjARJsLDWJ PKWpksmqLOWxCTNWL4ZoB 20NClxlcGljTmVzdERvYz B5JCPgaYTfYFF5OZ7laLj gGITyC4CxU7KmsbG1SOVx ecUHJsllSCGkQA4PTHQgG jIgDQp9 Intraoperative Consultation (test code = [id number]) g1hehXHgYSSbkMTBPQU9P JQmDC6njQqkcGh7nPzhYY IehxG8bUTcGJgpt2xeORB 6e7erqxKMIykfADEyQI9z JMeeXUYpYN8kIwRbOEDoS mYxXHBhcGVydzEyMjQwXH IuvTEkpYO0OYMxPT3babq kDKkqLTpoXUUzmsK8PPSh iNMxW3QvFLBqDP9amfuqG RI2NGKHMcegYt0agIWfuC tcZjFcZmNoYXJzZXQwXGZ igNadDCAzPFk0lK3ZHmhb KPT1HIMVJirxXorgfSuxe 2VjdCBcXHNnIFxcaWQgNT EwMDEgXFxkYiBPVlIgIiA 2VvO1HxqoYxQ0AXs6FQLU OHCqJtw1MOJ6IXF4OMj3S ZBjFA3fNJineQXwVPukJl oyUSpyN526VMvrPJEzU5M eW7VkJPwzKgGnVIrkCPQu DIHlKVrjETPfL0KKXKXqL ZW7KlS3KJWvGAo0AOozA6 ZTICIgIDIzMzEwNTQxIiA 1TWr0AIWPEo6bYNu2YBKc TUSxBlE5RJfkPMSaRHOxU iBcXHNzIDMgXFxmbCBcXG 7fdQzeNTIwSQ0RETGiQTk nDKSbAwLvI9UAO1wLHN2t QVxsdHJjaFxmczIyXHBhc gWZVyckHAXqKJ9IWZMoND seSVx6lqGwUFOcMwXwYWO rE03vr3CFf0LeRH5JCNg5 opVqefvxjV0uZKJbquImH ViuXbYdQZNHGUivQc1JWP GvK6HIJvQsUNVECrSZOmG rHlJmHj9KKNAEQA1OUngq QklPUFNZOlxwYXIgDQogI LIyRR8xCYDSGFzSBUxQRY LLTXbNBxGGViMNPR1DWZ8 OIFRPVUNIIFBSRVBBUkFU KU7WCbvtLfALA1OrXUYBC GKDULZGI6lkIAXlSJxvAF PmCY3lXk2kUcQFNkHSZGZ LB0TAV97xXKIESg2GSOXE AAkMG94ZSHKRF7VNNYahz CVoGS8KATOesuLIGtNxr3 EgwTZyjcYru9Y0XSUybL1 kLBAmTTdmnPkeb45wHR2k BD9lNWSzFQR9WRP0UfjlN R5aRCIdjtPeex4zxJrzna PfPfHgCEMcCNPaH9hmo4O ubkIhyZl0isMwvoQdlLB8 aWVudCBpZGVudGlmaWNhd MdxqgN6CKUhhSTzHw2moE VkLlxwYXIgDQpccGFyIA0 CAZTsEYwmYBWhwEXFo5Fx IAwozLT3LIzrnS56rSJtM T3YDWxscCQbpWYiNUKaKK VuIEZlbGljZWxsYSwgTUQ cVS4dAN6wSGWeTl9AASRx bJEUUIN0DF8zGFwkUXPwO 0SbT1XzgfP4l1eipPaoc8 OwyOPyHF7exSXzYU9RBGH hcmQgDQpcZnMyMiANCn0= Disclaimer (test code = [id number]) k2rqqSEuRQVth3xgZQGgp GFuZzEwMzNcZnRuYmpcdW CiERewtlQbFKepd2UgC4I yMjAwMFxhbnNpXGRlZmxh hcgpAGMuOLM9xcCpLZExM JnhGBGoTVphGe6fxTUqvL jkVqGlPCOar4acogTXQOk lZdGqD012RKAkXAzni6vm u3KvINHhoDGzn0Y1EMANr rzzxIz9cEhwI07ie0Q6Po zrG4uhHJOzLTHtU0WrHK8 eGWSvLnb9KRR9LKO9WNIt QPBmQ4ZjLD4kNWGzyCZvH Gt9t5qptBtzLLXjTKB6n7 xuOOcyeqYcSM7kav8gcKm 0j3rddqBoSSHaDEMavOEQ INThE1CzgVjsBi5gsKv9d LedAoxgGIE1Nvu7SV7qzp 31ayh3yFihWRMpjmlfOcM 1MFjbWHOrwejdERa7ZAhs IADjuEV8UXSzvDNpC3ZwI SKlAG2elmx6XFK0CGllQU RhIwM8CHJfyKOfGNRbjKh vKDloi278QTB5GhQwFF1z L9Isu3Y7oC5kzBDsNSRqx KNsWkGkWBQehi9zbRWfFW dgf7IlPXR8xpW8yOAyoUL bXUMlTE23Rghtl7HnItfh v8FvV89abJK1SYuoy4waL P5qQgP4vnCnLNmrn7tiqL 5xOxC9NAcaEQ6iHU5bQGP kmS7zmyivYNRzWjClzyeo HGGnoMtapsNsSm9frNswE GG9QGafP2fgkP5aIlK1VY kvI0zygE1sIXg9ATbqoXK 5FHVifE6bRS6pskjrz1ie DXcsXXozQUMcbpS3cnV3D CVmfMGjC7AzwV1kJYLiFZ 6whaesk8xtGPD6ZKisAWD pUPU7AcLdNQMce7Crmqs0 HvJdp8FfyERkAQadI13db 131SDXgpgBkP2dkuWFirx bhtPJoealkJEsoyhG6IYH qtwBba9FdPFGtRCX6HAxo QWbxeAVlSMWpkTrbq4tcA 3RscGFyXHBsYWluXGYxXG ZzMjBcbGFuZzEwMzNcaGl jaFxmMVxkYmNoXGYxXGxv I4rwTyVxV4HySUGmFmXta FNbP8beNQwnwiJyILNwyh OvtTN7ZFuvA1f7DPGptkZ gxDn0ipHrOtQnTRTkHNH7 FUbgyJDaTLVyx9Bbyjkgk QRpMh3erQWmJMLwcR3gDG MyFUKyVDvqDA6lbYb7URB YoTQxkEJmFvVUFTHySB29 ivXkOHDUzhvfo2J5JFwkV GHdp9QyfBMrF6sim0PrIU Zyc58dBD5sx8P7s5mgRYH 2ZW1pa5HmRPRzfGQwuOJe HDAmr5Jawrszg3YzYVZpp dCwt2KcGVYufnNhlUHmTT DrzaSfxp9rujOqKLMkDJS cH0AnpcvuiHumynYaMWIm rq4pdbEaPUB5SOHHKJYiE QVmz9MlmE3rrNSMATK0vY Wbnb6fpiGQbHBdOMZyoh7 1UTVkME5nV9ytILYgQNJd jkIriWLzd6DvRZCblMV4p OWmQI7GJrBZi89qWYGiUA PCcuCsBWSvwRiecXL6eeI 3sJ1vBFlERHDfRkj+IFRo AHVAIDLbJB5gxjFxc8Idh qRguTfyWOHkcHHlu9QcgF Buf9ViiGdrp0MfnBCcmMD gVA0kFOEgqtjgPXEcQWMV XjQBACAwkxG6u6ZiKFLwQ RZcUIQ0iYbfwxi5HZQajX 9kHUIyA4rlssysIQnpOHH wk5ZxoW1zoYPTvCVrf9Mk zOJwjOPPjUOpFK8eyiDnG OjXYTxOUCB2scVdDATut2 GqEVuqC0hhF81tgCezwTu 9wBW9SJJ3eY4mDlr+IFxw YXJccGFyIEFwcHJvcHJpY KXcpUjwhhWtY7IawuFjaK 6xoBYtxcJfOR9zHT0bH7W 2uOOjQRDhhhOdb0vlUPgs dmUgYmVlbiByZXZpZXdlZ NOqj2DiOCxhXDH7UWnhzw BpbmNsdWRpbmcgSCZFLCB PzPZjwFTeTKY2KQbqwsKc saGlUF9itP0pfTfbpU2tw OIumRU4cjjyYKEwBYEdoU dxIOZzBJ1svKovmD1dNsF yFaKxDOtjWF9wJUQzH5dv xWGlRGHsXETcP3hnGbCav L1dzUpbDExwJcTdCaKyLC xwYXJccGFyXHBsYWluXGY xXGZzMjBcbGFuZzEwMzNc aGljaFxmMVxkYmNoXGYxX QskJ5fjZhXmE3DuZKCtVq FqlYEeK4gqNSuqBFH6HGU uMP4mhYAnVL61hLZhz0nx HTutiMaptt7xX74lvBBrJ YbkjHhfMQTdq58ne2KgRJ ZkqkTxrs5jHEGygzL3nG7 sZSBzbGlkZSBpbWFnZXMg v7MdAIuglAMtfiKiIXevG OQbTEKtgQVbujY3neNuav VzuzVbEGTnfVtgNROnp6L kREYgJCkuc2Leda6atWZy UPTkqvQWjUpsaMVarG2qX 7YzGPJsSGVfzw9bICIljS 9tXYxcj7DhhcnhDUDfLPY wRTVhmkYemc9mHRAfoPLK KW7EWYefjNKet2YuntNwF 6yZOCJ5SPEfWkYyUeskYX FyaNUjhYAaNACvsf37VBL alZ6vqRtlZJTktS9zwV0f tLefcK0rOfEoNyRyWCynE O0iIELfD4wmmJKpFRIwML FtT7wcRrUhhC8ecGbhWYw gXtTyEaElIDlsQLL3lE== Embedded Images (test code = [id number]) [facility] GLUCOSE (AUTOMATED)2023-04-03 20:21:51* Test Item Value Reference Range Interpretation Comme nts POCT GLU (test code = [id number]) 92 mg/dL 70-110 Lab Interpretation (test cod e = 57399-6) Normal [facility] GLUCOSE (AUTOMATED)2023-04-03 20:21:51* Test Item Value Reference Range Interpretation Comme nts POCT GLU (test code = 6079880446) 92 mg/dL 70-110 Lab Interpretation (test cod e = 79160-7) Normal [facility] GLUCOSE (AUTOMATED)2023-04-03 20:21:51* Test Item Value Reference Range Interpretation Comme nts POCT GLU (test code = 2749967706) 92 mg/dL 70-110 Lab Interpretation (test cod e = 77143-6) Normal [facility] GLUCOSE (AUTOMATED)2023-04-03 17:40:28* Test Item Value Reference Range Interpretation Comme nts POCT GLU (test code = 8006412845) 81 mg/dL 70-110 Lab Interpretation (test cod e = 66553-3) Normal [facility] GLUCOSE (AUTOMATED)2023-04-03 17:40:28* Test Item Value Reference Range Interpretation Comme nts POCT GLU (test code = 1317011057) 81 mg/dL 70-110 Lab Interpretation (test cod e = 57409-9) Normal [facility] GLUCOSE (AUTOMATED)2023-04-03 17:40:28* Test Item Value Reference Range Interpretation Comme nts POCT GLU (test code = 4894821513) 81 mg/dL 70-110 Lab Interpretation (test cod e = 14488-1) Normal [facility] GLUCOSE (AUTOMATED)2023-04-03 13:06:17* Test Item Value Reference Range Interpretation Comme nts POCT GLU (test code = 9055695343) 81 mg/dL 70-110 Lab Interpretation (test cod e = 05671-1) Normal [facility] GLUCOSE (AUTOMATED)2023-04-03 13:06:17* Test Item Value Reference Range Interpretation Comme nts POCT GLU (test code = 1398999290) 81 mg/dL 70-110 Lab Interpretation (test cod e = 47906-8) Normal [facility] GLUCOSE (AUTOMATED)2023-04-03 13:06:17* Test Item Value Reference Range Interpretation Comme nts POCT GLU (test code = 8403693741) 81 mg/dL 70-110 Lab Interpretation (test cod e = 91672-7) Normal [facility] GLUCOSE (AUTOMATED)2023-04-03 02:58:53* Test Item Value Reference Range Interpretation Comme nts POCT GLU (test code = 3346628932) 196 mg/dL 70-110 H Lab Interpretation (test cod e = 37556-0) Abnormal [facility] GLUCOSE (AUTOMATED)2023-04-03 02:58:53* Test Item Value Reference Range Interpretation Comme nts POCT GLU (test code = 6901175569) 196 mg/dL 70-110 H Lab Interpretation (test cod e = 00960-0) [facility] 02:58:53* Test Item Value Reference Range Interpretation Comme nts POCT GLU (test code = 1222066074) 196 mg/dL 70-110 H Lab Interpretation (test cod e = 94431-2) [facility] 21:56:33* Test Item Value Reference Range Interpretation Comme nts POCT GLU (test code = 4108931436) 185 mg/dL 70-110 H Lab Interpretation (test cod e = 60708-4) Abnormal [facility] GLUCOSE (AUTOMATED)2023-04-02 21:56:33* Test Item Value Reference Range Interpretation Comme nts POCT GLU (test code = 5055769361) 185 mg/dL 70-110 H Lab Interpretation (test cod e = 57710-7) Abnormal [facility] GLUCOSE (AUTOMATED)2023-04-02 21:56:33* Test Item Value Reference Range Interpretation Comme nts POCT GLU (test code = 1787496748) 185 mg/dL 70-110 H Lab Interpretation (test cod e = 43065-4) Abnormal [facility] GLUCOSE (AUTOMATED)2023-04-02 17:04:54* Test Item Value Reference Range Interpretation Comme nts POCT GLU (test code = 1118282979) 264 mg/dL 70-110 H Lab Interpretation (test cod e = 38436-1) [facility] 17:04:54* Test Item Value Reference Range Interpretation Comme nts POCT GLU (test code = 9935632880) 264 mg/dL 70-110 H Lab Interpretation (test cod e = 07167-4) [facility] 17:04:54* Test Item Value Reference Range Interpretation Comme nts POCT GLU (test code = 4839153472) 264 mg/dL 70-110 H Lab Interpretation (test cod e = 01595-7) [facility] 12:46:52* Test Item Value Reference Range Interpretation Comme nts POCT GLU (test code = 4271324979) 139 mg/dL 70-110 H Lab Interpretation (test cod e = 45886-7) [facility] 12:46:52* Test Item Value Reference Range Interpretation Comme nts POCT GLU (test code = 8966719941) 139 mg/dL 70-110 H Lab Interpretation (test cod e = 76619-9) [facility] 12:46:52* Test Item Value Reference Range Interpretation Comme nts POCT GLU (test code = 4376009283) 139 mg/dL 70-110 H Lab Interpretation (test cod e = 36976-4) Abnormal [facility] GLUCOSE (AUTOMATED)2023-04-02 02:52:15* Test Item Value Reference Range Interpretation Comme nts POCT GLU (test code = 7441627943) 247 mg/dL 70-110 H Lab Interpretation (test cod e = 08023-0) [facility] 02:52:15* Test Item Value Reference Range Interpretation Comme nts POCT GLU (test code = 6280925826) 247 mg/dL 70-110 H Lab Interpretation (test cod e = 19982-7) [facility] 02:52:15* Test Item Value Reference Range Interpretation Comme nts POCT GLU (test code = 7262140469) 247 mg/dL 70-110 H Lab Interpretation (test cod e = 67272-0) [facility] 21:00:56* Test Item Value Reference Range Interpretation Comme nts POCT GLU (test code = 4891702746) 231 mg/dL 70-110 H Lab Interpretation (test cod e = 67894-8) Abnormal [facility] GLUCOSE (AUTOMATED)2023-04-01 21:00:56* Test Item Value Reference Range Interpretation Comme nts POCT GLU (test code = 0176742495) 231 mg/dL 70-110 H Lab Interpretation (test cod e = 61798-4) Abnormal [facility] GLUCOSE (AUTOMATED)2023-04-01 21:00:56* Test Item Value Reference Range Interpretation Comme nts POCT GLU (test code = 8375276147) 231 mg/dL 70-110 H Lab Interpretation (test cod e = 57461-9) Abnormal [facility] GLUCOSE (AUTOMATED)2023-04-01 17:19:17* Test Item Value Reference Range Interpretation Comme nts POCT GLU (test code = 6047421160) 291 mg/dL 70-110 H Lab Interpretation (test cod e = 35087-8) Abnormal [facility] GLUCOSE (AUTOMATED)2023-04-01 17:19:17* Test Item Value Reference Range Interpretation Comme nts POCT GLU (test code = 3735160817) 291 mg/dL 70-110 H Lab Interpretation (test cod e = 35356-9) Abnormal [facility] GLUCOSE (AUTOMATED)2023-04-01 17:19:17* Test Item Value Reference Range Interpretation Comme nts POCT GLU (test code = 7457719608) 291 mg/dL 70-110 H Lab Interpretation (test cod e = 88928-1) Abnormal [facility] GLUCOSE (AUTOMATED)2023-04-01 17:19:17* Test Item Value Reference Range Interpretation Comme nts POCT GLU (test code = 8166651898) 291 mg/dL 70-110 H Lab Interpretation (test cod e = 97964-5) Abnormal [facility] GLUCOSE (AUTOMATED)2023-04-01 13:53:20* Test Item Value Reference Range Interpretation Comme nts POCT GLU (test code = 6231186023) 250 mg/dL 70-110 H Lab Interpretation (test cod e = 29444-9) Abnormal [facility] GLUCOSE (AUTOMATED)2023-04-01 13:53:20* Test Item Value Reference Range Interpretation Comme nts POCT GLU (test code = 9528351012) 250 mg/dL 70-110 H Lab Interpretation (test cod e = 26621-5) Abnormal [facility] GLUCOSE (AUTOMATED)2023-04-01 13:53:20* Test Item Value Reference Range Interpretation Comme nts POCT GLU (test code = 1365076818) 250 mg/dL 70-110 H Lab Interpretation (test cod e = 93105-6) Abnormal [facility] GLUCOSE (AUTOMATED)2023-04-01 13:53:20* Test Item Value Reference Range Interpretation Comme nts POCT GLU (test code = 7453338776) 250 mg/dL 70-110 H Lab Interpretation (test cod e = 26253-4) Abnormal [facility] GLUCOSE (AUTOMATED)2023-04-01 01:26:46* Test Item Value Reference Range Interpretation Comme nts POCT GLU (test code = 4815846691) 220 mg/dL 70-110 H Lab Interpretation (test cod e = 24477-2) Abnormal [facility] GLUCOSE (AUTOMATED)2023-04-01 01:26:46* Test Item Value Reference Range Interpretation Comme nts POCT GLU (test code = 1772170198) 220 mg/dL 70-110 H Lab Interpretation (test cod e = 64425-0) Abnormal [facility] GLUCOSE (AUTOMATED)2023-04-01 01:26:46* Test Item Value Reference Range Interpretation Comme nts POCT GLU (test code = 6282880597) 220 mg/dL 70-110 H Lab Interpretation (test cod e = 95234-3) Abnormal [facility] GLUCOSE (AUTOMATED)2023-04-01 01:26:46* Test Item Value Reference Range Interpretation Comme nts POCT GLU (test code = 2762424506) 220 mg/dL 70-110 H Lab Interpretation (test cod e = 15676-9) [facility]CA2+2023-04-01 00:48:16* Test Item Value Reference Range Interpretation Comme nts PH (test code = 2) 7.36 7.35-7.45 PCO2 (test code = 9453406601) 37 See_Comment [Automated messa ge] The system which generated this result transmitted reference range: 35 - 45 mmHg. The reference range was not used to interpret this result as normal/abnormal. PO2 (test code = 9692575779) 134 See_Comment H [Automated messa ge] The system which generated this result transmitted reference range: 80 - 100 mmHg. The reference range was not used to interpret this result as normal/abnormal. HCO3 (test code = 9965904024) 20 See_Comment L [Automated messa ge] The system which generated this result transmitted reference range: 22 - 26 mEq/L. The reference range was not used to interpret this result as normal/abnormal. BE (test code = 7481814281) -4.5 See_Comment L [Automated messa ge] The system which generated this result transmitted reference range: -3.0 - 3.0 mEq/L. The reference range was not used to interpret this result as normal/abnormal. THB (test code = 5267703138) 13.5 g/dL 12.0-16.0 %O2HB (test code = 2732195166) 97.6 % 94.0-99.0 %COHB ART (test code = 6928556590) 0.5 % 0.0-1.5 %METHB ART (test code = 7597993155) 0.4 % 0.4-1.5 VOL%O2 ART (test code = 3279438490) 18.7 % 15.0-23.0 QUES NA (test code = 6935448823) 136 mmol/L 135-145 K+ (test code = 9495913166) 4.0 mmol/L 3.5-5.0 AC CA IONZ (test code = 1470111628) 4.80 mg/dL 4.50-5.30 GLUCOSE (test code = 0711680307) 115 mg/dL 70-110 H Lab Interpretation (test code = 02743-4) [facility]normal [facility]GLU+CA2+2023-04-01 00:48:16* Test Item Value Reference Range Interpretation Comme nts PH (test code = 2) 7.36 7.35-7.45 PCO2 (test code = 5565576921) 37 See_Comment [Automated messa ge] The system which generated this result transmitted reference range: 35 - 45 mmHg. The reference range was not used to interpret this result as normal/abnormal. PO2 (test code = 1516535167) 134 See_Comment H [Automated messa ge] The system which generated this result transmitted reference range: 80 - 100 mmHg. The reference range was not used to interpret this result as normal/abnormal. HCO3 (test code = 4981195264) 20 See_Comment L [Automated messa ge] The system which generated this result transmitted reference range: 22 - 26 mEq/L. The reference range was not used to interpret this result as normal/abnormal. BE (test code = 8194868124) -4.5 See_Comment L [Automated messa ge] The system which generated this result transmitted reference range: -3.0 - 3.0 mEq/L. The reference range was not used to interpret this result as normal/abnormal. THB (test code = 8515649070) 13.5 g/dL 12.0-16.0 %O2HB (test code = 4401894882) 97.6 % 94.0-99.0 %COHB ART (test code = 0103004904) 0.5 % 0.0-1.5 %METHB ART (test code = 9291202771) 0.4 % 0.4-1.5 VOL%O2 ART (test code = 5864287751) 18.7 % 15.0-23.0 QUES NA (test code = 2635155555) 136 mmol/L 135-145 K+ (test code = 0439278696) 4.0 mmol/L 3.5-5.0 AC CA IONZ (test code = 5692791444) 4.80 mg/dL 4.50-5.30 GLUCOSE (test code = 1721478970) 115 mg/dL 70-110 H Lab Interpretation (test code = 56867-5) [facility]normal [facility]GLU+CA2+2023-04-01 00:48:16* Test Item Value Reference Range Interpretation Comme nts PH (test code = 2) 7.36 7.35-7.45 PCO2 (test code = 2904258487) 37 See_Comment [Automated messa ge] The system which generated this result transmitted reference range: 35 - 45 mmHg. The reference range was not used to interpret this result as normal/abnormal. PO2 (test code = 6733353690) 134 See_Comment H [Automated messa ge] The system which generated this result transmitted reference range: 80 - 100 mmHg. The reference range was not used to interpret this result as normal/abnormal. HCO3 (test code = 9568243088) 20 See_Comment L [Automated messa ge] The system which generated this result transmitted reference range: 22 - 26 mEq/L. The reference range was not used to interpret this result as normal/abnormal. BE (test code = 1032243761) -4.5 See_Comment L [Automated messa ge] The system which generated this result transmitted reference range: -3.0 - 3.0 mEq/L. The reference range was not used to interpret this result as normal/abnormal. THB (test code = 7489795767) 13.5 g/dL 12.0-16.0 %O2HB (test code = 4747499282) 97.6 % 94.0-99.0 %COHB ART (test code = 6799052762) 0.5 % 0.0-1.5 %METHB ART (test code = 2673984325) 0.4 % 0.4-1.5 VOL%O2 ART (test code = 1272411400) 18.7 % 15.0-23.0 QUES NA (test code = 8540595455) 136 mmol/L 135-145 K+ (test code = 7844908754) 4.0 mmol/L 3.5-5.0 AC CA IONZ (test code = 5336803033) 4.80 mg/dL 4.50-5.30 GLUCOSE (test code = 3043661203) 115 mg/dL 70-110 H Lab Interpretation (test code = 74972-5) [facility]normal [facility]GLU[facility]CA2+2023-04-01 00:48:16* Test Item Value Reference Range Interpretation Comme nts PH (test code = 2) 7.36 7.35-7.45 PCO2 (test code = 8402110896) 37 See_Comment [Automated messa ge] The system which generated this result transmitted reference range: 35 - 45 mmHg. The reference range was not used to interpret this result as normal/abnormal. PO2 (test code = 1806507505) 134 See_Comment H [Automated messa ge] The system which generated this result transmitted reference range: 80 - 100 mmHg. The reference range was not used to interpret this result as normal/abnormal. HCO3 (test code = 0690174589) 20 See_Comment L [Automated messa ge] The system which generated this result transmitted reference range: 22 - 26 mEq/L. The reference range was not used to interpret this result as normal/abnormal. BE (test code = 6517128992) -4.5 See_Comment L [Automated messa ge] The system which generated this result transmitted reference range: -3.0 - 3.0 mEq/L. The reference range was not used to interpret this result as normal/abnormal. THB (test code = 8701168252) 13.5 g/dL 12.0-16.0 %O2HB (test code = 0210750579) 97.6 % 94.0-99.0 %COHB ART (test code = 5542798899) 0.5 % 0.0-1.5 %METHB ART (test code = 0777679859) 0.4 % 0.4-1.5 VOL%O2 ART (test code = 3246474796) 18.7 % 15.0-23.0 QUES NA (test code = 8314009091) 136 mmol/L 135-145 K+ (test code = 1727197033) 4.0 mmol/L 3.5-5.0 AC CA IONZ (test code = 7730299012) 4.80 mg/dL 4.50-5.30 GLUCOSE (test code = 5725733992) 115 mg/dL 70-110 H Lab Interpretation (test code = 10244-1) Abnormal [facility] GLUCOSE (AUTOMATED)2023-03-31 22:33:04* Test Item Value Reference Range Interpretation Comme nts POCT GLU (test code = 9675084637) 159 mg/dL 70-110 H Lab Interpretation (test cod e = 13271-7) Abnormal [facility] GLUCOSE (AUTOMATED)2023-03-31 22:33:04* Test Item Value Reference Range Interpretation Comme nts POCT GLU (test code = 0112910238) 159 mg/dL 70-110 H Lab Interpretation (test cod e = 50054-6) Abnormal [facility] GLUCOSE (AUTOMATED)2023-03-31 22:33:04* Test Item Value Reference Range Interpretation Comme nts POCT GLU (test code = 9310699533) 159 mg/dL 70-110 H Lab Interpretation (test cod e = 97347-6) Abnormal [facility] GLUCOSE (AUTOMATED)2023-03-31 22:33:04* Test Item Value Reference Range Interpretation Comme nts POCT GLU (test code = 6154163698) 159 mg/dL 70-110 H Lab Interpretation (test cod e = 05180-3) [facility] 17:29:51* Test Item Value Reference Range Interpretation Comme nts POCT GLU (test code = 8678735658) 149 mg/dL 70-110 H Lab Interpretation (test cod e = 24671-2) [facility] 17:29:51* Test Item Value Reference Range Interpretation Comme nts POCT GLU (test code = 1214218477) 149 mg/dL 70-110 H Lab Interpretation (test cod e = 99322-5) Abnormal [facility] GLUCOSE (AUTOMATED)2023-03-31 17:29:51* Test Item Value Reference Range Interpretation Comme nts POCT GLU (test code = 9032071309) 149 mg/dL 70-110 H Lab Interpretation (test cod e = 64443-1) Abnormal [facility] GLUCOSE (AUTOMATED)2023-03-31 17:29:51* Test Item Value Reference Range Interpretation Comme nts POCT GLU (test code = 1549881819) 149 mg/dL 70-110 H Lab Interpretation (test cod e = 20149-6) Abnormal [facility] GLUCOSE (AUTOMATED)2023-03-31 13:24:15* Test Item Value Reference Range Interpretation Comme nts POCT GLU (test code = 6368049993) 145 mg/dL 70-110 H Lab Interpretation (test cod e = 64899-8) [facility] 13:24:15* Test Item Value Reference Range Interpretation Comme nts POCT GLU (test code = 0326245921) 145 mg/dL 70-110 H Lab Interpretation (test cod e = 75980-3) [facility] 13:24:15* Test Item Value Reference Range Interpretation Comme nts POCT GLU (test code = 8890841576) 145 mg/dL 70-110 H Lab Interpretation (test cod e = 99246-6) [facility]normal [facility]2023-03-31 13:24:15* Test Item Value Reference Range Interpretation Comme nts POCT GLU (test code = 8261731468) 145 mg/dL 70-110 H Lab Interpretation (test cod e = 00348-8) Abnormal [facility] METABOLIC PANEL (NA, K, CL, CO2, GLUCOSE, BUN, CREATININE, CA)2023-03-31 09:20:08* Test Item Value Reference Range Interpretation Comme [facility] NA (test code = 8010731204) 139 mmol/L 135-145 K (test code = 3661543989) 3.9 mmol/L 3.5-5.0 CL (test code = 3801435101) 105 mmol/L 98-108 CO2 TOTAL (test code = 5405396447) 25 mmol/L 23-31 AGAP (test code = 6686211034) 9 2-16 BUN (test code = 1159850072) 26 mg/dL 7-23 H GLUCOSE (test code = 4442064237) 156 mg/dL 70-110 H CREATININE (test code = 2662262319) 0.81 mg/dL 0.50-1.04 CALCIUM (test code = 8919088567) 8.9 mg/dL 8.6-10.6 eGFR (test code = 8887612566) 68.2 mL/min/1.73m2 GARRICK (test code = GARRICK) Association of Glomerular Filtration Rate (GFR) and Staging of Kidney Disease* + --+ --+ ------+| GFR (mL/min/1.73 m2) ?| With Kidney Damage ?| ?Without Kidney Damage+ --------+ --------+ +| ?>90 ?| ?Stage one ?| ? Normal ?+ ---+ ---+ -------+| ?60-89 ?| ?Stage two ?| ? Decreased GFR ? + --+ --+ ------+| ?30-59 ?| ?Stage three ?| ? Stage three ? + --+ --+ ------+| ?15-29 ?| ?Stage four ? | ? Stage four ?+ ---+ ---+ -------+| ?<15 (or dialysis) ? ?| ?Stage five ? | ? Stage five ?+ ---+ ---+ -------+ *Each stage assumes the associated GFR level has been in effect for at least three months. ?Stages 1 to 5, with or without kidney disease, indicate chronic kidney disease. Notes: Determination of stages one and two (with eGFR >59mL/min/1.73 m2) requires estimation of kidney damage for at least three months as defined by structural or functional abnormalities of the kidney, manifested by either:Pathological abnormalities or Markers of kidney damage (including abnormalities in the composition of the blood or urine or abnormalities in imaging tests). Lab Interpretation (test code = 54706-2) Abnormal [facility] METABOLIC PANEL (NA, K, CL, CO2, GLUCOSE, BUN, CREATININE, CA)2023-03-31 09:20:08* Test Item Value Reference Range Interpretation Comme nts NA (test code = 5351103593) 139 mmol/L 135-145 K (test code = 5038781924) 3.9 mmol/L 3.5-5.0 CL (test code = 1857383078) 105 mmol/L 98-108 CO2 TOTAL (test code = 9439695750) 25 mmol/L 23-31 AGAP (test code = 8348221468) 9 2-16 BUN (test code = 7671129494) 26 mg/dL 7-23 H GLUCOSE (test code = 5171593573) 156 mg/dL 70-110 H CREATININE (test code = 3505308074) 0.81 mg/dL 0.50-1.04 CALCIUM (test code = 3432281410) 8.9 mg/dL 8.6-10.6 eGFR (test code = 3752630356) 68.2 mL/min/1.73m2 GARRICK (test code = GARRICK) Association of Glomerular Filtration Rate (GFR) and Staging of Kidney Disease* + --+ --+ ------+| GFR (mL/min/1.73 m2) ?| With Kidney Damage ?| ?Without Kidney Damage+ --------+ --------+ +| ?>90 ?| ?Stage one ?| ? Normal ?+ ---+ ---+ -------+| ?60-89 ?| ?Stage two ?| ? Decreased GFR ? + --+ --+ ------+| ?30-59 ?| ?Stage three ?| ? Stage three ? + --+ --+ ------+| ?15-29 ?| ?Stage four ? | ? Stage four ?+ ---+ ---+ -------+| ?<15 (or dialysis) ? ?| ?Stage five ? | ? Stage five ?+ ---+ ---+ -------+ *Each stage assumes the associated GFR level has been in effect for at least three months. ?Stages 1 to 5, with or without kidney disease, indicate chronic kidney disease. Notes: Determination of stages one and two (with eGFR >59mL/min/1.73 m2) requires estimation of kidney damage for at least three months as defined by structural or functional abnormalities of the kidney, manifested by either:Pathological abnormalities or Markers of kidney damage (including abnormalities in the composition of the blood or urine or abnormalities in imaging tests). Lab Interpretation (test code = 21240-5) Abnormal [facility] METABOLIC PANEL (NA, K, CL, CO2, GLUCOSE, BUN, CREATININE, CA)2023-03-31 09:20:08* Test Item Value Reference Range Interpretation Comme nts NA (test code = 9185321051) 139 mmol/L 135-145 K (test code = 4016769407) 3.9 mmol/L 3.5-5.0 CL (test code = 4179145074) 105 mmol/L 98-108 CO2 TOTAL (test code = 3761088963) 25 mmol/L 23-31 AGAP (test code = 7643864329) 9 2-16 BUN (test code = 0287440473) 26 mg/dL 7-23 H GLUCOSE (test code = 6054074019) 156 mg/dL 70-110 H CREATININE (test code = 7431411286) 0.81 mg/dL 0.50-1.04 CALCIUM (test code = 8110795322) 8.9 mg/dL 8.6-10.6 eGFR (test code = 5696599301) 68.2 mL/min/1.73m2 GARRICK (test code = GARRICK) Association of Glomerular Filtration Rate (GFR) and Staging of Kidney Disease* + --+ --+ ------+| GFR (mL/min/1.73 m2) ?| With Kidney Damage ?| ?Without Kidney Damage+ --------+ --------+ +| ?>90 ?| ?Stage one ?| ? Normal ?+ ---+ ---+ -------+| ?60-89 ?| ?Stage two ?| ? Decreased GFR ? + --+ --+ ------+| ?30-59 ?| ?Stage three ?| ? Stage three ? + --+ --+ ------+| ?15-29 ?| ?Stage four ? | ? Stage four ?+ ---+ ---+ -------+| ?<15 (or dialysis) ? ?| ?Stage five ? | ? Stage five ?+ ---+ ---+ -------+ *Each stage assumes the associated GFR level has been in effect for at least three months. ?Stages 1 to 5, with or without kidney disease, indicate chronic kidney disease. Notes: Determination of stages one and two (with eGFR >59mL/min/1.73 m2) requires estimation of kidney damage for at least three months as defined by structural or functional abnormalities of the kidney, manifested by either:Pathological abnormalities or Markers of kidney damage (including abnormalities in the composition of the blood or urine or abnormalities in imaging tests). Lab Interpretation (test code = 77188-8) Abnormal [facility] METABOLIC PANEL (NA, K, CL, CO2, GLUCOSE, BUN, CREATININE, CA)2023-03-31 09:20:08* Test Item Value Reference Range Interpretation Comme nts NA (test code = 8488231010) 139 mmol/L 135-145 K (test code = 2543757513) 3.9 mmol/L 3.5-5.0 CL (test code = 3407267098) 105 mmol/L 98-108 CO2 TOTAL (test code = 4285471301) 25 mmol/L 23-31 AGAP (test code = 0495459814) 9 2-16 BUN (test code = 5792331614) 26 mg/dL 7-23 H GLUCOSE (test code = 5222689361) 156 mg/dL 70-110 H CREATININE (test code = 1709371020) 0.81 mg/dL 0.50-1.04 CALCIUM (test code = 5935052572) 8.9 mg/dL 8.6-10.6 eGFR (test code = 0102142138) 68.2 mL/min/1.73m2 GARRICK (test code = GARRICK) Association of Glomerular Filtration Rate (GFR) and Staging of Kidney Disease* + --+ --+ ------+| GFR (mL/min/1.73 m2) ?| With Kidney Damage ?| ?Without Kidney Damage+ --------+ --------+ +| ?>90 ?| ?Stage one ?| ? Normal ?+ ---+ ---+ -------+| ?60-89 ?| ?Stage two ?| ? Decreased GFR ? + --+ --+ ------+| ?30-59 ?| ?Stage three ?| ? Stage three ? + --+ --+ ------+| ?15-29 ?| ?Stage four ? | ? Stage four ?+ ---+ ---+ -------+| ?<15 (or dialysis) ? ?| ?Stage five ? | ? Stage five ?+ ---+ ---+ -------+ *Each stage assumes the associated GFR level has been in effect for at least three months. ?Stages 1 to 5, with or without kidney disease, indicate chronic kidney disease. Notes: Determination of stages one and two (with eGFR >59mL/min/1.73 m2) requires estimation of kidney damage for at least three months as defined by structural or functional abnormalities of the kidney, manifested by either:Pathological abnormalities or Markers of kidney damage (including abnormalities in the composition of the blood or urine or abnormalities in imaging tests). Lab Interpretation (test code = 62355-8) [facility]normal [facility] [id number] 09:02:26* Test Item Value Reference Range Interpretation [facility] APTT Patient (test code = 3173-2) 28 See_Comment [Automated PlotWatt] The system which generated this result transmitted reference range: 26 - 36 Seconds. The reference range was not used to interpret this result as normal/abnormal. Lab Interpretation (test code = 15286-4) Normal [facility] Center[facility] Time / [id number] 09:02:26* Test Item Value Reference Range Interpretation [facility] PROTIME PATIENT (test code = 5964-2) 12.1 See_Comment [Automated messa ge] The system which generated this result transmitted reference range: 10.1 - 12.6 Seconds. The reference range was not used to interpret this result as normal/abnormal. INR (test code = 6301-6) 1.1 Normal INR <1.1; Warfarin Therapeutic range 2.0 to 3.0 or 2.5 to 3.5, depending upon the indications. Lab Interpretation (test code = 40282-1) Normal [facility] [id number] 09:02:26* Test Item Value Reference Range Interpretation Comme nts APTT Patient (test code = 3173-2) 28 See_Comment [Automated messa ge] The system which generated this result transmitted reference range: 26 - 36 Seconds. The reference range was not used to interpret this result as normal/abnormal. Lab Interpretation (test code = 15979-5) Normal [facility] / [id number] 09:02:26* Test Item Value Reference Range Interpretation Comme nts PROTIME PATIENT (test code = 5964-2) 12.1 See_Comment [Automated messa ge] The system which generated this result transmitted reference range: 10.1 - 12.6 Seconds. The reference range was not used to interpret this result as normal/abnormal. INR (test code = 6301-6) 1.1 Normal INR <1.1; Warfarin Therapeutic range 2.0 to 3.0 or 2.5 to 3.5, depending upon the indications. Lab Interpretation (test code = 50590-5) Normal [facility] [id number] 09:02:26* Test Item Value Reference Range Interpretation Comme nts APTT Patient (test code = 3173-2) 28 See_Comment [Automated messa ge] The system which generated this result transmitted reference range: 26 - 36 Seconds. The reference range was not used to interpret this result as normal/abnormal. Lab Interpretation (test code = 34028-0) Normal [facility] / [id number] 09:02:26* Test Item Value Reference Range Interpretation Comme nts PROTIME PATIENT (test code = 5964-2) 12.1 See_Comment [Automated messa ge] The system which generated this result transmitted reference range: 10.1 - 12.6 Seconds. The reference range was not used to interpret this result as normal/abnormal. INR (test code = 6301-6) 1.1 Normal INR <1.1; Warfarin Therapeutic range 2.0 to 3.0 or 2.5 to 3.5, depending upon the indications. Lab Interpretation (test code = 00594-9) Normal [facility] [id number] 09:02:26* Test Item Value Reference Range Interpretation Comme [facility] APTT Patient (test code = 3173-2) 28 See_Comment [Automated messa ge] The system which generated this result transmitted reference range: 26 - 36 Seconds. The reference range was not used to interpret this result as normal/abnormal. Lab Interpretation (test code = 60211-6) Normal [facility] / [id number] 09:02:26* Test Item Value Reference Range Interpretation Comme [facility] PROTIME PATIENT (test code = 5964-2) 12.1 See_Comment [Automated messa ge] The system which generated this result transmitted reference range: 10.1 - 12.6 Seconds. The reference range was not used to interpret this result as normal/abnormal. INR (test code = 6301-6) 1.1 Normal INR <1.1; Warfarin Therapeutic range 2.0 to 3.0 or 2.5 to 3.5, depending upon the indications. Lab Interpretation (test code = 86688-4) Normal [facility] WITH [id number] 08:50:07* Test Item Value Reference Range Interpretation [facility] W[facility] (test code = 6690-2) 10.75 See_Comment [Automated messa ge] The system which generated this result transmitted reference range: 4.30 - 11.10 10*3/?L. The reference range was not used to interpret this result as normal/abnormal. RBC (test code = 789-8) 4.72 See_Comment [Automated messa ge] The system which generated this result transmitted reference range: 3.93 - 5.25 10*6/?L. The reference range was not used to interpret this result as normal/abnormal. HGB (test code = 718-7) 13.7 g/dL 11.6-15.0 HCT (test code = 4544-3) 40.6 % 35.7-45.2 MCV (test code = 787-2) 86.0 fL 80.6-95.5 MCH (test code = 785-6) 29.0 pg 25.9-32.8 MCHC (test code = 786-4) 33.7 g/dL 31.6-35.1 RDW-SD (test code = 58675-8) 41.9 fL 39.0-49.9 RDW-CV (test code = 788-0) 13.3 % 12.0-15.5 PLT (test code = 777-3) 212 See_Comment [Automated messa ge] The system which generated this result transmitted reference range: 166 - 358 10*3/?L. The reference range was not used to interpret this result as normal/abnormal. MPV (test code = 42842-6) 10.4 fL 9.5-12.9 NRBC/100 WBC (test code = 2975359802) 0.0 See_Comment [Automated [employer] ssage] The system which generated this result transmitted reference range: 0.0 - 10.0 /100 WBCs. The reference range was not used to interpret this result as normal/abnormal. NRBC x10^3 (test code = 3248364012) See_Comment [Automated Fileblazea ge] The system which generated this result transmitted reference range: 10*3/?L. The reference range was not used to interpret this result as normal/abnormal. GRAN MAT (NEUT) % (test code = 770-8) 54.8 % IMM GRAN % (test code = 8388353126) 0.30 % LYMPH % (test code = 736-9) 37.0 % MONO % (test code = 5905-5) 5.7 % EOS % (test code = 713-8) 1.5 % BASO % (test code = 706-2) 0.7 % GRAN MAT x10^3(ANC) (test code = 3066546433) 5.89 10*3/uL 1.88-7.09 IMM GRAN x10^3 (test code = 9127392035) 0.03 10*3/uL 0.00-0.06 LYMPH x10^3 (test code = 731-0) 3.98 10*3/uL 1.32-3.29 H MONO x10^3 (test code = 742-7) 0.61 10*3/uL 0.33-0.92 EOS x10^3 (test code = 711-2) 0.16 10*3/uL 0.03-0.39 BASO x10^3 (test code = 704-7) 0.08 10*3/uL 0.01-0.07 H Lab Interpretation (test code = 71006-3) Abnormal [facility] WITH [id number] 08:50:07* Test Item Value Reference Range Interpretation Comme nts WBC (test code = 6690-2) 10.75 See_Comment [Automated [employer]] The system which generated this result transmitted reference range: 4.30 - 11.10 10*3/?L. The reference range was not used to interpret this result as normal/abnormal. RBC (test code = 789-8) 4.72 See_Comment [Automated [employer]] The system which generated this result transmitted reference range: 3.93 - 5.25 10*6/?L. The reference range was not used to interpret this result as normal/abnormal. HGB (test code = 718-7) 13.7 g/dL 11.6-15.0 HCT (test code = 4544-3) 40.6 % 35.7-45.2 MCV (test code = 787-2) 86.0 fL 80.6-95.5 MCH (test code = 785-6) 29.0 pg 25.9-32.8 MCHC (test code = 786-4) 33.7 g/dL 31.6-35.1 RDW-SD (test code = 87720-9) 41.9 fL 39.0-49.9 RDW-CV (test code = 788-0) 13.3 % 12.0-15.5 PLT (test code = 777-3) 212 See_Comment [Automated [employer]aze[employer] ge] The system which generated this result transmitted reference range: 166 - 358 10*3/?L. The reference range was not used to interpret this result as normal/abnormal. MPV (test code = 19617-9) 10.4 fL 9.5-12.9 NRBC/100 WBC (test code = 5519043248) 0.0 See_Comment [Automated me ssage] The system which generated this result transmitted reference range: 0.0 - 10.0 /100 WBCs. The reference range was not used to interpret this result as normal/abnormal. NRBC x10^3 (test code = 7898417383) See_Comment [Automated messa ge] The system which generated this result transmitted reference range: 10*3/?L. The reference range was not used to interpret this result as normal/abnormal. GRAN MAT (NEUT) % (test code = 770-8) 54.8 % IMM GRAN % (test code = 3300423486) 0.30 % LYMPH % (test code = 736-9) 37.0 % MONO % (test code = 5905-5) 5.7 % EOS % (test code = 713-8) 1.5 % BASO % (test code = 706-2) 0.7 % GRAN MAT x10^3(ANC) (test code = 4665388619) 5.89 10*3/uL 1.88-7.09 IMM GRAN x10^3 (test code = 5861662224) 0.03 10*3/uL 0.00-0.06 LYMPH x10^3 (test code = 731-0) 3.98 10*3/uL 1.32-3.29 H MONO x10^3 (test code = 742-7) 0.61 10*3/uL 0.33-0.92 EOS x10^3 (test code = 711-2) 0.16 10*3/uL 0.03-0.39 BASO x10^3 (test code = 704-7) 0.08 10*3/uL 0.01-0.07 H Lab Interpretation (test code = 86864-9) Abnormal [facility] WITH [id number] 08:50:07* Test Item Value Reference Range Interpretation Comme nts WBC (test code = 6690-2) 10.75 See_Comment [Automated messa ge] The system which generated this result transmitted reference range: 4.30 - 11.10 10*3/?L. The reference range was not used to interpret this result as normal/abnormal. RBC (test code = 789-8) 4.72 See_Comment [Automated messa ge] The system which generated this result transmitted reference range: 3.93 - 5.25 10*6/?L. The reference range was not used to interpret this result as normal/abnormal. HGB (test code = 718-7) 13.7 g/dL 11.6-15.0 HCT (test code = 4544-3) 40.6 % 35.7-45.2 MCV (test code = 787-2) 86.0 fL 80.6-95.5 MCH (test code = 785-6) 29.0 pg 25.9-32.8 MCHC (test code = 786-4) 33.7 g/dL 31.6-35.1 RDW-SD (test code = 24352-0) 41.9 fL 39.0-49.9 RDW-CV (test code = 788-0) 13.3 % 12.0-15.5 PLT (test code = 777-3) 212 See_Comment [Automated messa ge] The system which generated this result transmitted reference range: 166 - 358 10*3/?L. The reference range was not used to interpret this result as normal/abnormal. MPV (test code = 48253-3) 10.4 fL 9.5-12.9 NRBC/100 WBC (test code = 7035644977) 0.0 See_Comment [Automated [employer] ssage] The system which generated this result transmitted reference range: 0.0 - 10.0 /100 WBCs. The reference range was not used to interpret this result as normal/abnormal. NRBC x10^3 (test code = 6837334584) See_Comment [Automated messa ge] The system which generated this result transmitted reference range: 10*3/?L. The reference range was not used to interpret this result as normal/abnormal. GRAN MAT (NEUT) % (test code = 770-8) 54.8 % IMM GRAN % (test code = 8357374003) 0.30 % LYMPH % (test code = 736-9) 37.0 % MONO % (test code = 5905-5) 5.7 % EOS % (test code = 713-8) 1.5 % BASO % (test code = 706-2) 0.7 % GRAN MAT x10^3(ANC) (test code = 1032342908) 5.89 10*3/uL 1.88-7.09 IMM GRAN x10^3 (test code = 7489670505) 0.03 10*3/uL 0.00-0.06 LYMPH x10^3 (test code = 731-0) 3.98 10*3/uL 1.32-3.29 H MONO x10^3 (test code = 742-7) 0.61 10*3/uL 0.33-0.92 EOS x10^3 (test code = 711-2) 0.16 10*3/uL 0.03-0.39 BASO x10^3 (test code = 704-7) 0.08 10*3/uL 0.01-0.07 H Lab Interpretation (test code = 88174-3) Abnormal [facility] WITH [id number] 08:50:07* Test Item Value Reference Range Interpretation Comme nts WBC (test code = 6690-2) 10.75 See_Comment [Automated [employer] ge] The system which generated this result transmitted reference range: 4.30 - 11.10 10*3/?L. The reference range was not used to interpret this result as normal/abnormal. RBC (test code = 789-8) 4.72 See_Comment [Automated [employer] ge] The system which generated this result transmitted reference range: 3.93 - 5.25 10*6/?L. The reference range was not used to interpret this result as normal/abnormal. HGB (test code = 718-7) 13.7 g/dL 11.6-15.0 HCT (test code = 4544-3) 40.6 % 35.7-45.2 MCV (test code = 787-2) 86.0 fL 80.6-95.5 MCH (test code = 785-6) 29.0 pg 25.9-32.8 MCHC (test code = 786-4) 33.7 g/dL 31.6-35.1 RDW-SD (test code = 00504-6) 41.9 fL 39.0-49.9 RDW-CV (test code = 788-0) 13.3 % 12.0-15.5 PLT (test code = 777-3) 212 See_Comment [Automated messa ge] The system which generated this result transmitted reference range: 166 - 358 10*3/?L. The reference range was not used to interpret this result as normal/abnormal. MPV (test code = 90635-8) 10.4 fL 9.5-12.9 NRBC/100 WBC (test code = 7111449390) 0.0 See_Comment [Automated me ssage] The system which generated this result transmitted reference range: 0.0 - 10.0 /100 WBCs. The reference range was not used to interpret this result as normal/abnormal. NRBC x10^3 (test code = 7509781103) See_Comment [Automated messa ge] The system which generated this result transmitted reference range: 10*3/?L. The reference range was not used to interpret this result as normal/abnormal. GRAN MAT (NEUT) % (test code = 770-8) 54.8 % IMM GRAN % (test code = 1602897454) 0.30 % LYMPH % (test code = 736-9) 37.0 % MONO % (test code = 5905-5) 5.7 % EOS % (test code = 713-8) 1.5 % BASO % (test code = 706-2) 0.7 % GRAN MAT x10^3(ANC) (test code = 3056571503) 5.89 10*3/uL 1.88-7.09 IMM GRAN x10^3 (test code = 2886541307) 0.03 10*3/uL 0.00-0.06 LYMPH x10^3 (test code = 731-0) 3.98 10*3/uL 1.32-3.29 H MONO x10^3 (test code = 742-7) 0.61 10*3/uL 0.33-0.92 EOS x10^3 (test code = 711-2) 0.16 10*3/uL 0.03-0.39 BASO x10^3 (test code = 704-7) 0.08 10*3/uL 0.01-0.07 H Lab Interpretation (test code = 47569-5) Abnormal [facility] GLUCOSE (AUTOMATED)2023-03-31 02:49:07* Test Item Value Reference Range Interpretation Comme nts POCT GLU (test code = 8510726270) 158 mg/dL 70-110 H Lab Interpretation (test cod e = 08108-8) Abnormal [facility] GLUCOSE (AUTOMATED)2023-03-31 02:49:07* Test Item Value Reference Range Interpretation Comme nts POCT GLU (test code = 0650548304) 158 mg/dL 70-110 H Lab Interpretation (test cod e = 07722-0) Abnormal [facility] GLUCOSE (AUTOMATED)2023-03-31 02:49:07* Test Item Value Reference Range Interpretation Comme nts POCT GLU (test code = 7940553351) 158 mg/dL 70-110 H Lab Interpretation (test cod e = 04723-6) Abnormal [facility] GLUCOSE (AUTOMATED)2023-03-31 02:49:07* Test Item Value Reference Range Interpretation Comme nts POCT GLU (test code = 9233245460) 158 mg/dL 70-110 H Lab Interpretation (test cod e = 70302-1) Abnormal [facility] GLUCOSE (AUTOMATED)2023-03-30 21:38:20* Test Item Value Reference Range Interpretation Comme nts POCT GLU (test code = 1026633658) 229 mg/dL 70-110 H Lab Interpretation (test cod e = 38801-0) Abnormal [facility] GLUCOSE (AUTOMATED)2023-03-30 21:38:20* Test Item Value Reference Range Interpretation Comme nts POCT GLU (test code = 5817377430) 229 mg/dL 70-110 H Lab Interpretation (test cod e = 92030-6) Abnormal [facility] GLUCOSE (AUTOMATED)2023-03-30 21:38:20* Test Item Value Reference Range Interpretation Comme nts POCT GLU (test code = 1838710337) 229 mg/dL 70-110 H Lab Interpretation (test cod e = 69654-0) Abnormal [facility] GLUCOSE (AUTOMATED)2023-03-30 21:38:20* Test Item Value Reference Range Interpretation Comme nts POCT GLU (test code = 6708808039) 229 mg/dL 70-110 H Lab Interpretation (test cod e = 61198-9) Abnormal [facility] GLUCOSE (AUTOMATED)2023-03-30 17:56:37* Test Item Value Reference Range Interpretation Comme nts POCT GLU (test code = 9645598970) 209 mg/dL 70-110 H Lab Interpretation (test cod e = 19944-7) [facility] 17:56:37* Test Item Value Reference Range Interpretation Comme nts POCT GLU (test code = 5973501580) 209 mg/dL 70-110 H Lab Interpretation (test cod e = 20856-7) [facility] 17:56:37* Test Item Value Reference Range Interpretation Comme nts POCT GLU (test code = 3348091505) 209 mg/dL 70-110 H Lab Interpretation (test cod e = 47250-9) Abnormal [facility] GLUCOSE (AUTOMATED)2023-03-30 17:56:37* Test Item Value Reference Range Interpretation Comme nts POCT GLU (test code = 4719541487) 209 mg/dL 70-110 H Lab Interpretation (test cod e = 29299-0) Abnormal [facility] GLUCOSE (AUTOMATED)2023-03-30 13:03:11* Test Item Value Reference Range Interpretation Comme nts POCT GLU (test code = 9656371123) 139 mg/dL 70-110 H Lab Interpretation (test cod e = 26262-5) Abnormal [facility] GLUCOSE (AUTOMATED)2023-03-30 13:03:11* Test Item Value Reference Range Interpretation Comme nts POCT GLU (test code = 7570434405) 139 mg/dL 70-110 H Lab Interpretation (test cod e = 63818-7) Abnormal [facility] GLUCOSE (AUTOMATED)2023-03-30 13:03:11* Test Item Value Reference Range Interpretation Comme nts POCT GLU (test code = 2268881464) 139 mg/dL 70-110 H Lab Interpretation (test cod e = 14145-5) Abnormal [facility] GLUCOSE (AUTOMATED)2023-03-30 13:03:11* Test Item Value Reference Range Interpretation Comme nts POCT GLU (test code = 2487374703) 139 mg/dL 70-110 H Lab Interpretation (test cod e = 74122-3) Abnormal [facility] GLUCOSE (AUTOMATED)2023-03-30 01:21:56* Test Item Value Reference Range Interpretation Comme nts POCT GLU (test code = 2487826487) 225 mg/dL 70-110 H Lab Interpretation (test cod e = 32607-6) [facility] 01:21:56* Test Item Value Reference Range Interpretation Comme nts POCT GLU (test code = 8263946057) 225 mg/dL 70-110 H Lab Interpretation (test cod e = 94732-5) [facility] 01:21:56* Test Item Value Reference Range Interpretation Comme nts POCT GLU (test code = 5911735096) 225 mg/dL 70-110 H Lab Interpretation (test cod e = 15139-3) Abnormal [facility] GLUCOSE (AUTOMATED)2023-03-30 01:21:56* Test Item Value Reference Range Interpretation Comme nts POCT GLU (test code = 1153561526) 225 mg/dL 70-110 H Lab Interpretation (test cod e = 93516-5) Abnormal [facility] GLUCOSE (AUTOMATED)2023-03-29 23:02:05* Test Item Value Reference Range Interpretation Comme nts POCT GLU (test code = 9824692275) 200 mg/dL 70-110 H Lab Interpretation (test cod e = 79450-5) Abnormal [facility] 23:02:05* Test Item Value Reference Range Interpretation Comme nts POCT GLU (test code = 5608958540) 200 mg/dL 70-110 H Lab Interpretation (test cod e = 08464-7) [facility] 23:02:05* Test Item Value Reference Range Interpretation Comme nts POCT GLU (test code = 8815228591) 200 mg/dL 70-110 H Lab Interpretation (test cod e = 44578-7) [facility] 23:02:05* Test Item Value Reference Range Interpretation Comme nts POCT GLU (test code = 7466971210) 200 mg/dL 70-110 H Lab Interpretation (test cod e = 68984-8) [facility] 17:48:21* Test Item Value Reference Range Interpretation Comme nts POCT GLU (test code = 0515313370) 276 mg/dL 70-110 H Lab Interpretation (test cod e = 12316-0) [facility] 17:48:21* Test Item Value Reference Range Interpretation Comme nts POCT GLU (test code = 1496748511) 276 mg/dL 70-110 H Lab Interpretation (test cod e = 76187-6) [facility] 17:48:21* Test Item Value Reference Range Interpretation Comme nts POCT GLU (test code = 1281390796) 276 mg/dL 70-110 H Lab Interpretation (test cod e = 30310-8) Abnormal [facility] GLUCOSE (AUTOMATED)2023-03-29 17:48:21* Test Item Value Reference Range Interpretation Comme nts POCT GLU (test code = 3043310237) 276 mg/dL 70-110 H Lab Interpretation (test cod e = 07179-1) [facility] 15:52:57* Test Item Value Reference Range Interpretation Comme nts POCT GLU (test code = 5567118565) 228 mg/dL 70-110 H Lab Interpretation (test cod e = 32936-7) [facility] 15:52:57* Test Item Value Reference Range Interpretation Comme nts POCT GLU (test code = 1902194098) 228 mg/dL 70-110 H Lab Interpretation (test cod e = 32106-8) [facility] 15:52:57* Test Item Value Reference Range Interpretation Comme nts POCT GLU (test code = 4064216306) 228 mg/dL 70-110 H Lab Interpretation (test cod e = 28031-4) [facility] 15:52:57* Test Item Value Reference Range Interpretation Comme nts POCT GLU (test code = 0305097605) 228 mg/dL 70-110 H Lab Interpretation (test cod e = 28694-3) Abnormal [facility] GLUCOSE (AUTOMATED)2023-03-29 13:17:44* Test Item Value Reference Range Interpretation Comme nts POCT GLU (test code = 6547076138) 197 mg/dL 70-110 H Lab Interpretation (test cod e = 17577-0) Abnormal [facility] GLUCOSE (AUTOMATED)2023-03-29 13:17:44* Test Item Value Reference Range Interpretation Comme nts POCT GLU (test code = 1729201677) 197 mg/dL 70-110 H Lab Interpretation (test cod e = 16219-1) Abnormal [facility] GLUCOSE (AUTOMATED)2023-03-29 13:17:44* Test Item Value Reference Range Interpretation Comme nts POCT GLU (test code = 5272119937) 197 mg/dL 70-110 H Lab Interpretation (test cod e = 56586-9) Abnormal [facility] GLUCOSE (AUTOMATED)2023-03-29 13:17:44* Test Item Value Reference Range Interpretation Comme nts POCT GLU (test code = 9968032738) 197 mg/dL 70-110 H Lab Interpretation (test cod e = 48506-9) Abnormal [facility] Bpuzspx5792-73-48 05:19:00* Test Item Value Reference Range Interpretation Comme nts ABO & RH (test code = 20) B POSITIVE IAT (test code = 1185) Negative [facility] - [facility] Jfthooy9057-52-28 05:19:00* Test Item Value Reference Range Interpretation Comme nts ABO & RH (test code = 20) B POSITIVE IAT (test code = 1185) Negative [facility] - [facility]CE Wffvmve1108-67-60 05:19:00* Test Item Value Reference Range Interpretation Comme nts ABO & RH (test code = 20) B POSITIVE IAT (test code = 1185) Negative [facility] - [facility]CE Agnvmus5416-92-54 05:19:00* Test Item Value Reference Range Interpretation Comme nts ABO & RH (test code = 20) B POSITIVE IAT (test code = 1185) Negative [facility] Consult Notes Date/Time Note Provider Source 2023-04-12 11:56:36 tqva4p5yJWMUtjrZX3T2ymu+rEO/Tgo7bsMt 5E7PEcPjbUA3Uyq5QLLlMkBPgJum8314-58- 27T11:56:36Associated Order(s): CONSULT ORGAN PIPE VOICER-ADULT Care Management Note04/12/2023 11:56 AMCommentsReason for consult - please give recommendation or opinion on: please get patient a second nader Zarco. Her current one is dirty If patient does not have an established provider for this service, please contact the provider on-call. Insurance will not cover cost of brace as brace was ordered on March 31, 2023. Yamel Hassan LMSWSocilaureano [facility] Care [phone]: This SW is not assigned to this team and is providing weekend coverage. Please inquire with nursing staff or assigned care management Thu-Thursday as applicable for more information involving the patient's plan of care/discharge plan. 57390-9Qluooff wtirWP1667-17-81T57:58:45Consult noteTXT1.2.840.057731.1.13.104.2.7.2 .595828|[id number] for patient ggle87540-3Tomyghq [address] Ie[id number] ESTFMKLQPDDFSJDNNVLESP8443-33-02H41: 58:451.2.840.851264.1.72.3.15|1.2.84 0.069738.1.13.104.2.7.2.727879_18844 [address] [facility] 2023-04-12 10:02:33 xXzek3eNtpxZ3ffv1VFMpfQNaPF/CgMnYprp 0V9AGB3M9+juCg9ef8yzuwKTL9iT3072-76- 27T10:02:33Associated Order(s): CONSULT SURGICAL CO-MANAGEMENT (SCM) Re consult noted for urinary retention, agree with urology c/s, rox would likely benefit from aguilar placement upon d/c with out patient follow up with urology, should also follow up with oncology and possibly community health specialist/community health specialist onc. Still stable for d/c from our standpoint, will s/o. Meds for d/c as below:sulfamethoxazole-trimethoprim, 1 tablet, BID- until 04/12/23amLODIPine, 5 mg, DAILYinsulin glargine, 60 Units, QHSlosartan, 50 mg, DAILYomeprazole, 20 mg, DAILYtolterodine LA, 2 mg, DAILYinsulin lispro (human), , TID MEALS+HSJanuvia 50 mgBowel and pain regimen per primary 23006-6Bmvdzbq nswoGZ4107-58-48O18:04:06Consult noteTXT1.2.840.576263.1.13.104.2.7.2 .343896|[id number] for patient lgqs52272-4Njqbasy [address][id number] EQSESDUUXJIPHTGBTLZEAC2354-92-96N52: 04:061.2.840.200310.1.72.3.15|1.2.84 0.806726.1.13.104.2.7.2.727879_18843 [address] [facility] 2023-04-04 08:49:57 1zpFMdEBhdkVgiSKIQaDG2zl1GVPBaCuP+hi RoXeFg6lWHxhcfTOgOlETPfGuFj72512-16- 19T08:49:57Associated Order(s): CONSULT MEDICAL ONCOLOGY HEMATOLOGY AND ONCOLOGY CONSULT NOTEDate of Service: 04/04/2023Reason for Consultation: please give recommendation or opinion on: metastatic diseaseReferring Physician / Primary Service: MONTANA MARTINEZ Chief Complaint: Neck pain, RUE numbnessDiagnosis: spinal canal stenosis.[facility]Mad[facility] is a 78 year old /White female with a Medical Hx significant for type 2 diabetes, hypertension, hyperlipidemia, GERD, diabetic peripheral neuropathy presented for a chief complaint of neck pain and RUE numbness. The symptoms have been ongoing for several weeks and she had a referral to see neurosurgery however symptoms continued to escalate to include bowel and bladder incontinence, generalized weakness and difficulty with walking prompting them to go to the ER. MRI cervical spine w/o contrast from 03/19/2023 showing a severe compression fracture of C5 with bony retropulsion, resulting in a significant degree of spinal canal stenosis.During this hospitalization repeat MRI showed similar fracture to above and Signal alteration throughout the collapsed C5 vertebral body and the C6 Vertebra suspicious for a pathological fracture in the setting of potential metastatic disease or multiple myeloma. Biopsy taken at the time of surgery was consistent with metastatic breast cancer. Patient denies any personal cancer history or family history of malignancy.ONCOLOGY HISTORY: Oncology History No history exists. Review of Systems: A 10-system review was conducted and was negative except for what's noted in the HPI. The following systems were reviewed: Constitutional, cardiovascular, respiratory, gastrointestinal, genitourinary, musculoskeletal, neurologic, psychiatric, endocrinological, and hematological.HISTORIES: No past medical history on file.Past Surgical History: Procedure Laterality Date ANTERIOR CORPECTOMY N/A 03/31/2023 Surgeon: Natalie Ridley MD; Location: [facility] No family history on file.Social History Socioeconomic History Marital status: Spouse name: Not on file Number of children: Not on file Years of education: Not on file Highest education level: Not on file Occupational History Not on file Tobacco Use Smoking status: Former Types: Cigarettes Passive exposure: Never Smokeless tobacco: Never Substance and Sexual Activity Alcohol use: Not on file Drug use: Not on file Sexual activity: Not on file Other Topics Concern Not on file Social History Narrative Not on file Social Determinants of Health Financial Resource Strain: Low Risk (03/29/2023) Overall Financial Resource Strain (CARDIA) Difficulty of Paying Living Expenses: Not hard at all Food Insecurity: No Food Insecurity (03/29/2023) Hunger Vital Sign Worried About Running Out of Food in the Last Year: Never true Ran Out of Food in the Last Year: Never true Transportation Needs: No Transportation Needs (03/29/2023) PRAPARE - Transportation Lack of Transportation (Medical): No Lack of Transportation (Non-Medical): No Physical Activity: Inactive (03/29/2023) Exercise Vital Sign Days of Exercise per Week: 0 days Minutes of Exercise per Session: 0 min Stress: Not on file Social Connections: Unknown (03/29/2023) Social Connection and Isolation Panel [NHANES] Frequency of Communication with Friends and Family: More than three times a week Frequency of Social Gatherings with Friends and Family: Not on file Attends Rastafarian Services: Not on file Active Member of Clubs or Organizations: Not on file Attends Club or Organization Meetings: Not on file Marital Status: Patient refused Intimate Partner Violence: Not on file Housing Stability: Low Risk (03/29/2023) Housing Stability Vital Sign Unable to Pay for Housing in the Last Year: No Number of Places Lived in the Last Year: 2 Unstable Housing in the Last Year: No ALLERGIES No Known AllergiesMEDICATIONS: Current Facility-Administered Medications: lactated ringers IV infusion 1,000 mL, 1,000 mL, IV Infusion, CONTINUOUS, Eugenio Figueroa MD magnesium hydroxide (MILK OF MAGNESIA) 400 mg/5 mL suspension 30 mL, 30 mL, Oral, DAILY, Dipti Gilman MD, 30 mL at 04/04/23922 polyethylene glycol 3350 powder 17 g, 17 g, Oral, DAILY, Dipti Gilman MD, 17 g at 04/04/23922 sennosides-docusate sodium (SENOKOT-S) 8.6-50 mg per tablet 1 tablet, 1 tablet, Oral, DAILY, Moreland, Nolan Shaw MD, 1 tablet at 04/04/23922 enoxaparin (LOVENOX) injection 40 mg, 40 mg, Subcutaneous, Q24H, Moose Hart MD, 40 mg at 04/03/231948 lidocaine-epinephrine (XYLOCAINE WITH EPINEPHRINE) 0.5 %-1:200,000 injection, , , PRN, Natalie Ridley MD, 7 mL at 03/31/23 1413 morpHINE (2 mg/mL) injection 2 mg, 2 mg, Slow IV Push, Q3HPRN, Vikram Villanueva MD, 2 mg at 04/03/23 0428 oxyCODONE immediate release tablet 5 mg, 5 mg, Oral, Q6HPRN, Vikram Villanueva MD, 5 mg at 04/04/23 1249 phenoL (SORE THROAT (PHENOL)) 1.4 % spray bottle 1 Benton, 1 Benton, Oral, PRN, Vikram Villanueva MD, 1 Benton at 04/03/23 1409 thrombin (recombinant) (RECOTHROM) topical solution, , , PRN, Natalie Ridley MD, 5,000 Units at 03/31/23 1416 vancomycin (VANCOCIN) 1 g in sodium chloride 0.9 % irrigation, , , PRN, Natalie Ridley MD, 1 g at 03/31/23 1619 amLODIPine (NORVASC) tablet 5 mg, 5 mg, Oral, DAILY, Dipti Gilman MD, 5 mg at 04/04/23 0923 insulin glargine (LANTUS U-100) injection 60 Units, 60 Units, Subcutaneous, QHS, Dipti Gilman MD, 60 Units at 04/03/23 2143 losartan (COZAAR) tablet 50 mg, 50 mg, Oral, DAILY, Dipti Gilman MD, 50 mg at 04/04/23 0923 omeprazole (PRILOSEC) capsule 20 mg, 20 mg, Oral, DAILY, Dipti Gilman MD, 20 mg at 04/04/23 0923 tolterodine LA (DETROL LA) 24 hr capsule 2 mg, 2 mg, Oral, DAILY, Dipti Gilman MD, 2 mg at 04/04/23 0923 cyclobenzaprine (FLEXERIL) tablet 5 mg, 5 mg, Oral, TID, Nolan Moreland MD, 5 mg at 04/04/23 0923 dextrose 50 % in water (D50W) injection 25 mL, 25 mL, Slow IV Push, PRN, Nolan Moreland MD docusate (COLACE) capsule 100 mg, 100 mg, Oral, DAILY, Nolan Moreland MD, 100 mg at 04/04/23 0923 glucagon (GLUCAGEN DIAGNOSTIC KIT) injection 1 mg, 1 mg, Intramuscular, PRN, Nolan Moreland MD hydralAZINE (APRESOLINE) injection 10 mg, 10 mg, Slow IV Push, Q2HPRN, Nolan Moreland MD labetaloL (NORMODYNE) injection 20 mg, 20 mg, Slow IV Push, Q15MIN PRN, Nolan Moreland MD ondansetron (ZOFRAN (PF)) injection 4 mg, 4 mg, Slow IV Push, Q6HPRN, Nolan Moreland MD, 4 mg at 03/31/23 1640 Sliding Scale Insulin - Lispro (HumaLOG), , Subcutaneous, TID MEALS+HS, Nolan Moreland MD, 1 Units at 04/03/23 2143PHYSICAL EXAMWt Readings from Last 3 Encounters: 03/28/23 90.3 kg (199 lb) Vitals: 04/04/23 0022 04/04/23 0437 04/04/23 0800 04/04/23 1200 BP: 127/60 133/70 132/82 135/89 BP Location: Right arm Right arm Patient Position: Sitting Pulse: 80 80 87 105 Resp: Temp: 36.6 ?C (97.9 ?F) 37.2 ?C (98.9 ?F) 36.8 ?C (98.2 ?F) 36.9 ?C (98.5 ?F) TempSrc: Oral Oral SpO2: 98% 93% 95% 93% Weight: Height: Intake/Output Summary (Last 24 hours) at 04/04/2023 0850Last data filed at 04/04/2023 0022Gross per 24 hour Intake -- Output 700 ml Net -700 ml Performance status: ECOG 30: Fully active and able to carry all predisease performance without restriction.1: Restricted in physically strenuous activity but ambulatory and able to carry out light work (office work, light house work). 2: Ambulatory and capable of all self care but unable to carry out any work activities. Up and about more than 50% of waking hours. 3: Capable of limited self care, confined to bed or chair more than 50% of waking hours. 4: Completely disabled and unable to carry on any self care. Totally confined to bed or chair. Physical ExamVitals reviewed. Constitutional: Appearance: She is obese. HENT: Head: Normocephalic and atraumatic. Right Ear: External ear normal. Left Ear: External ear normal. Nose: Nose normal. Eyes: Conjunctiva/sclera: Conjunctivae normal. Cardiovascular: Rate and Rhythm: Normal rate and regular rhythm. Pulses: Normal pulses. Heart sounds: Normal heart sounds. Pulmonary: Effort: Pulmonary effort is normal. Breath sounds: Normal breath sounds. Musculoskeletal: Right lower leg: No edema. Left lower leg: No edema. Skin: General: Skin is warm and dry. Findings: No rash. Neurological: Mental Status: She is alert. Psychiatric: Mood and Affect: Mood normal. Behavior: Behavior normal. Thought Content: Thought content normal. Judgment: Judgment normal. LABS/IMAGING - Reviewed; Pertinent results as below:Recent Labs WBC 13.78* HGB 12.0 PLT 186 MCV 84.7 ANC 7.72* Recent Labs NA 137 K 3.8 CL 102 TCO2 23 AGAP 12 BUN 21 CREAT 0.66 Recent Labs CA 8.6 No results for input(s): "ALB", "TPRO", "BILIT", "ALKPHOS", "AST", "ALT" in the last 72 hours.No results for input(s): "URICACID", "LDH" in the last 72 hours.ASSESSMENT: Madeline Parks is a 78 year old female with the following active problems:#Metastatic breast cancer (ER+/WV+/HER2-)#Bony metastatic disease#Pathologic vertebral fracture#Spinal stenosisDuring this hospitalization repeat MRI showed similar fracture to above and Signal alteration throughout the collapsed C5 vertebral body and the C6 Vertebra suspicious for a pathological fracture in the setting of potential metastatic disease or multiple myeloma. Biopsy taken at the time of surgery was consistent with metastatic breast cancer.- ER positive result with 95% tumor cells moderate nuclear staining Fina score 5 + 2 = 7 Internal control cells absent.- WV positive result with 90% tumor cells moderate nuclear staining Fina score 5 + 2 = 7 Internal control cells absent.- Her-2-lisseth negative (1+) of tumor cells membranous stainingChronic conditions#HTN#GERD#OA#IDDM- Per primary team and other consulting servicesPLANS / RECOMMENDATIONS: -No inpatient treatment recommended at this time.-Recommend outpatient PET scan and MRI brain for further staging workup.-Referral to [facility] oncology at discharge-Will plan on discussing further treatment options in the outpatient setting once patient has recovered from surgery.Hematology & Medical Oncology will continue to follow this patient with you. Thank you for involving us in the care of this interesting patient. Please call with any questions or concerns. Patient seen and discussed with Dr. Everett, Faculty. Richar Walsh, DOPGY4 Hematology/Oncology Fellow [facility] Dept of Hematology and Oncology ssociated attestation - Hill Everett MD - 04/05/2023 12:43 PM CDT I personally examined the patient on 04/04/[address] Bangura's fellow note as written . I actively participated in the decision-making process. Please see the resident's note for additional details. Metastatic ER+ breast cancer found in boneAgree with NSG interventionPt will benefit from outpatient PET CT and rad onc and med onc referralsOutpatient, will plan treatment likely with AI/Faslodex + CKD 4/6 inhib+ Bone agent 12373-6Irhbdyb [id number], Rohit1.2.840.408860.1.13.104.2.7.2.8 74205TmpcsgjljoYkkyjVM1633-53-34F64: 43:45Consult noteTXT1.2.840.330237.1.13.104.2.7.2 .657052|[id number] for patient xxcp10258-1Mghkmbk noteLNIM-HEMATOLOGY & ONCOLOGYIM-HEMATOLOGY & ONCOLOGYUT[address] Px[id number] BOGWPJYFUWZGQGDPVKGJCY2964-19-23X79: 43:451.2.840.151655.1.72.3.15|1.2.84 0.636856.1.13.104.2.7.2.727879_18784 58063 IM-HEMATOLOGY & ONCOLOGY [facility] 2023-03-31 08:26:34 s0y7AeErZt6OZL4XJD9FqybWVwlsNzapz/d1 /N0ZQt0KgxDH/qtJZpKXWDCCn4SY3730-78- 15T08:26:34Associated Order(s): CONSULT ORGAN PIPE VOICER-ADULT Reason for consult - please give recommendation or opinion on: Patient needs [facility] Social Work NoteOrder and referral sent to [address] [address] F: [phone]. Care Management will follow up regarding delivery status.Emiliana [email or web address] medical [email or web address]: [phone]: [phone] 68736-4Jxwtxya apcbVA0947-33-95Q59:27:07Consult noteTXT1.2.840.132904.1.13.104.2.7.2 .820274|[id number] for patient voqw40736-6Bsrugnd noteLNUT09 Graves [id number] RQRESIRIYYBXJGJLLJTFYO0111-98-31P64: 27:071.2.840.264666.1.72.3.15|1.2.84 0.237614.1.13.104.2.7.2.727879_18744 02429 [facility] 2023-03-30 10:44:40 xJwapfFktcStfXcDA6qjCrePEgrnvCesrGFH GE2YwwqLp1u5frETtVLRd14uuJEe6545-19- 14T10:44:40Associated Order(s): CONSULT ADULT OCCUPATIONAL THERAPY OT GENERAL EVALUATIONConsult received via CONSTRVCT, EMR reviewed and evaluation completed 03/30/23. Patient referred to occupational therapy for evaluation and treatment secondary to C5 compression fracture with bony retropulsion, spinal canal stenosis. Patient agreeable to participate in occupational therapy.In Consult from it was noted that patient has DM; Dysuria, HTN, GERD, OA and overactive bladder.Discharge Recommendations:Therapy Needs and Potential:- Patient would benefit from continued skilled occupational therapy services to address: Decline in basic activities of daily living, Decline in instrumental activities of daily living, Decreased endurance, Caregiver training, and cervical precautions - Patient demonstrates good potential to improve and meet therapy goals with further skilled occupational therapy services.- Patient appears motivated to improve their B/IADLs and return to their previous level of function.Challenges to Home Transition:- Requires physical assistance for BADLS- Requires physical assistance for IADLS- Requires supervision or verbal cues for BADLS- Decreased safety awareness/judgement- Increased risk of falls- Environmental barriersEquipment Recommendations:Long handled sponge, Long handled librarian specialist, Sock aide, Bedside commode. Tub transfer bench if she remains in a setting with a combo tub. I certify that Madeline Parks is under my care and that I had a taqp-ot-gxrz encounter with this patient on: 03/30/23 . The primary reason for the durable medical equipment: for safety with toilet transfer secondary to 3 LOB during session I am recomending that, based on my findings, the following is medically necessary durable medical equipment: 3 in 1 bedside commode. Height: Ht Readings from Last 1 Encounters: 03/28/23 5' 3" (1.6 m) Weight:Wt Readings from Last 1 Encounters: 03/28/23 199 lb (90.3 kg) Duration of need: 99 months. Patient does not have access to regular toilet facilities because he/she is confined to: A single room.PLAN OF CARE: At least 3x/week, MD initially present for evaluation- reports plans for OR tomorrow. Precautions: Weight bearing status: Not assigned by MD in chart and will have patient follow NO heavy lifting until further discussion with MD occurs. General: PPE Utilized: Gloves, Fall, Cervical Spinal Precautions, and logrollBracing: Cervical collar: [place] collarCurrent Occupational Performance and/or Treatment:AM-PAC 6 Clicks (Raw Score 0=Dependent, 24=Independent; Low function Raw Score 0= Dependent, 32=Independent):Raw Score - Daily Activity: 12T-Scale Score - Daily Activity: 30.6 Feeding: Moderate Assistance, for Radha collar management and hygiene.Grooming: Moderate Assistance, assimilated from patient reaching towards collar to adjust. Toilet Transfer: Moderate Assistance, of cuing simulated from bedside chair.Functional Mobility: - Sit <> stand bedside chair: Min Assistance following one failed attempt secondary to knee buckling.- Functional Mobility for simulated toilet transfer: Moderate assistance with early descend due to knee buckling with Radha Collar and donned gaitbelt and RW for safety.- Sitting EOB <-> supine: Mod Assistance to use log roll technique. Patient/caregiver educated on:C-collar management, Compensatory techniques/adaptive strategies (log roll technique), Role of OT, Safety awareness, and Spinal precautions (no turning, twisting, or bending in the brace) - will need updated education once surgical plan is in place.Patient left supine in bed, Radha collar donned with call dunn in reach. R UE elevated and nursing notified . The following recommendations were provided to nursing: strapping placement for Radha Collar; assistance for OOB mobility including gait belt for safety (left patient her own gait belt in room for nursing to use); stand pivot transfer to bedside commode; Assistance with feeding and Radha Collar hygiene. Please, see full evaluation below for more detail. OT EVALUATION:78 year old female Admit date: 03/28/2023 Date of onset: per EMR ~1 month prior secondary to a fall into shower Admit Diagnosis: Cervical stenosis of spinal canal [M48.02]OT Diagnosis: Impaired BADL independence, and Impaired IADL independencePMH: No past medical history on file.PSH: No past surgical history on file.PAIN: Pain rating before treatment: 3, After treatment: 3Nursing reported pain med given at ~8:00 a.m. OCCUPATIONAL ROLES/HOME ENVIRONMENT:Home environment: Lives alone in [facility], Upstairs apartment , and Elevator. Bathroom access: YesBathroom setup: ComboOccupation(s): RetiredFunction prior to admission: Household ambulation, Independent with BADLs, and recieves Assistance with IADLs: groceries are delivered and qggjfudb-pz-apg assists with laundrySuspected ischemic or hemorraghic stroke patient: NoEquipment prior to admission: 4 wheeled walker, Powered Chair, Shower chair , Wheelchair and canePERFORMANCE SKILLS/FACTORS: UE Muscle Tone: bilateral WNLUE ROM: bilateral AROM WFL - did not take GOMEZ shoulders 90 degreesUE Strength: GOMEZ WFL grossly assessed at 3+/5, except shoulder flexion NT due to spinal precautionsHand dominance: right Dexterity/Coordination: bilateral IntactEndurance - Sitting: Fair Standing: Poor+Sitting Balance - Static: Fair+ Dynamic: FairStanding: Balance - Static Poor Dynamic: Poor + 3 failed attempts total with bedside mobility secondary to knee bucklingDizziness: NoSkin Integrity: No breakdown noted - will need to monitor for Radha collar useSensation: bilateral Intact to light touch Oral Motor: WFLCommunication: Able to verbalize needs Yes Other: N/AVision: WFL Yes Other: glasses or contactsHearing: good; no issues reportedCOGNITION: Orientation: person, place, date/time, and situationFollows Commands: 1-step Yes Multi-step Yes Inconsistencies NoSafety Awareness/Judgment: Requires frequent cueing and ImpulsivePROBLEM LIST: Decreased independence with ADL, Impaired postural control, and Impaired safety awarenessREHAB POTENTIAL/PROGNOSIS: goodPATIENT/FAMILY GOALS: None reported at this time. TREATMENT/INTERVENTION PLAN: Patient/Caregiver Education, Equipment recommendations, Daily living activities, and compensatory techniquesGOAL(S): By discharge, patient will increase independence in daily living skills as follows: 1 Patient will perform 3 in 1 BSC transfer with supervision.2 Patient will perform feeding task with independence.3 Patient will don/doff socks, underwear, and/or pants with independence using Long handled librarian specialist, Sock aide as needed.4 Patient will complete grooming tasks with independence while standing at the sink.5 Patient will increase endurance for functional activity as evidenced by ability to sustain 30 minutes of active participation. 6 Patient/caregiver will verbalize/demonstrate understanding/proficiency in the following home programs: C-collar management, Compensatory techniques/adaptive strategies, and Spinal PrecautionsPATIENT-FAMILY TEACHINGPatient provided with preferred teaching of verbal information and written information on C-collar management, Role of OT, and Spinal precautions. Shows readiness to learn. Verbal instruction, Written material, and Demonstration teaching provided. Individual is able to read and verbalizes understanding of teaching provided and needs reinforcement of teaching.Christoph Manzano OTR, OTDPletremayne contact the Department of Rehabilitation Services at for questions or concerns during week day coverage.Total Timed Treatment Codes: 25 MinTotal Treatment Time: 33 MinComplexity: High 03184-3Eiosmax sqtaVV8180-04-80K36:00:45Consult noteTXT1.2.840.422167.1.13.104.2.7.2 .154542|[id number] for patient tusu86667-4Wbrbiww [id number] Marco Manzano [address][id number] SSQKGOIXWDYCNYSOUMJJFK8699-23-17M19: 00:451.2.840.629549.1.72.3.15|1.2.84 0.589288.1.13.104.2.7.2.727879_18736 71900 Shayne Manzano OT [facility] 2023-03-29 17:46:38 l5fIennXrVz3Yfu1AtedRc4FcVNm53kF/9AQ cdEDMapmpoyPn+PuBJbB2HtFWkPD4471-68- 13T17:46:38 Reason for consult - please give recommendation or opinion on: Please assist with discharge planning when appropriate Care Management Social Functional AssessmentPatient Name: Madeline Parks Age: [age] year old Sex: female admit date: N/ABedside SFA completed. Pt states she lives alone in her apartment, but her son Erik and daughter in law live in the apartment above hers and come down frequently to check on her. DC needs: F/U with PT/OT recs for DME. Pt may need a home health order&referral for PT depending on recs. Current diagnosis and co-morbidities: Cervical stenosis of spinal canal [M48.02] Readmission Questions:Was patient discharged from any acute care hospital within the last 30 days: NoAlcohol Use Screening (AUDIT-C)Q1: How often do you have a drink containing alcohol?: NeverSCORE: 1Did patient elect to have resources provided: NoSocial Functional Assessment:Mental Status: Alert & Oriented to Person,Place & TimeInformation given by: SelfPatient's support system and care transitions nurse: ChildName and phone number of primary caregiver/support system: Erik Parks (son) [phone] and his , Avis Parks (daughter) [phone]: No;Same as support systemLiving Arrangement: Apartment w/ elevator accessAddress of living arrangement : [address] [facility] [address]Qi the last 12 months, was there a time when you were not able to pay the mortgage or rent on time?: NoIn the last 12 months, how many places have you lived?: 2In the last 12 months, was there a time when you did not have a steady place to sleep or slept in a fpc (including now)?: NoPersons living in home: SelfAre you , , , , never , or living with a partner?: Patient refusedIn a typical week, how many times do you talk on the phone with family, friends, or neighbors?: More than three times a weekBaseline functional assessment-ADLS: DependentBaseline functional status- ambulation: IndependentFunctional status-baseline personal care: IndependentBaseline functional status- driving: DependentBaseline functional status- grocery shopping: DependentFunctional status-baseline housekeeping: Requires minimal to moderate assistanceFunctional status-baseline meal prep: IndependentCurrent functional status same as prior: NoCurrent functional status- ambulation: Requires minimal to moderate assistanceCurrent functional status- personal care: Requires minimal to moderate assistanceCurrent functional status- driving: DependentCurrent functional status- grocery shopping: DependentCurrent functional status-house keeping: DependentCurrent functional status- meal preparation: Requires minimal to moderate assistanceOn average, how many days per week do you engage in moderate to strenuous exercise (like a brisk walk)?: 0 daysOn average, how many minutes do you engage in exercise at this level?: 0 minDo you have a PCP?: YesName of PCP: Dr. Rodolfo Wong [facility] Care Agency: Isa Services: Mary Company: NoEquipment: Walker;Wheelchair: Manual;Scooter;Grab bars;Shower ChairHemodialysis: NoCommunity resources utilized: SSA/SSI/Medicaid;Food StampsFunding Resources: Managed MedicareManaged Medicare name and information: [facility] D[facility] OPEN PPOPrescription coverage plan: CommercialHow hard is it for you to pay for the very basics like food, housing, medical care, and heating?: Not hard at allWithin the past 12 months, you worried that your food would run out before you got the money to buy more.: Never trueWithin the past 12 months, the food you bought just didn't last and you didn't have money to get more.: Never trueAnticipated services prior to disharge: Consult;Continue Medical Eval;Lab Values;PT/OT/ST;Reassess prior to dischargeExpected mode of discharge transportation: Personal vehicle;Same as support systemIn the past 12 months, has lack of transportation kept you from medical appointments or from getting medications?: NoIn the past 12 months, has lack of transportation kept you from meetings, work, or from getting things needed for daily living?: NoAdditional info required for discharge planning: Pending medical evaluation;Pending P/T O/T recommendationRecommended discharge plan: Home with new Home HealthSFA Complete:Social Functional Assessment complete: Yes Role of Care Management explained. _Joanna Cardona RN, BSN, BC-RNWeekend Care CoordinatorFr 8A-8P [facility] Care [email or web address]-40 [phone]- [phone] signed by Joanna Cardona RN at 03/29/2023 5:51 PM IZA27122-4Ilecaqy rhtaAI1065-14-18J45:51:42Consult noteTXT1.2.840.119518.1.13.104.2.7.2 .766015|[id number] for patient tpzu97299-2Xafrceo noteLNUT[address] Cd[id number] BWQIFMIYKRHTZDCTBDKXKB3225-48-56G08: 51:421.2.840.863320.1.72.3.15|1.2.84 0.451601.1.13.104.2.7.2.727879_18731 39006 [facility] 2023-03-29 13:02:55 kL+N2LWTcTnNy07Lbz/+IZdbm+Z3JZ+/lwyr ezCDlgMPbk5gNEEkaKPKNiHiWvv21450-82- 13T13:02:55Associated Order(s): CONSULT SURGICAL CO-MANAGEMENT (SCM) Images from the original note were not included.Surgical Co-Management Hospitalist (SCM) Consult ServiceInitial Preoperative Consultation NotePatient: Madelinejossy PopN: [id number] Date of Consult: 03/29/2023 Referring Physician: Dr Garcia for Consult: Perioperative risk assessment and medical optimization/co-managementHPI: The patient is a 78-year-old female with history of type 2 diabetes on insulin, Jardiance, hypertension, hyperlipidemia, GERD, diabetic peripheral neuropathy who was transferred from [facility] due to concerns for cervical myelopathy/ C5 fx. Patient's son and cjqmxpwm-jo-ahd were at bedside help with history. They state that the patient had persistent left arm pain and numbness that going on for the past 2 to 3 weeks, she eventually had an x-ray and MRI of the cervical spine and was referred to a neurosurgeon but had not had any follow-up with them just yet. They state that she has had some bowel and bladder incontinence, generalized weakness and difficulty with walking prompting them to go to the ER for further evaluation. The patient lives in an apartment in the same building as her family, is not dependent on all ADLs including grocery shopping, self-care, does not drive, walks with a walker but cannot go up any hills or even leave her apartment without any help. The patient has no known history of dementia or any memory problems. She denies any history of any cardiac disease or [place] nor any CVA's. The patient moved to the [facility] approximate 1 year ago, prior to that she was living in [facility], she states she may have had a stress test about 2 years ago while in [facility] but is uncertain. She denies any chest pain shortness of breath with activity. The patient does not check her sugars very often but does take Lantus 80 units at bedtime. She utilizes the [employer] in [place]. The patient & family deny any hypoglycemic episodes. Pt and family note she has had recurrent UTIs and currently states she has burning with urination. SCM consulted for help with medical management. Proposed Surgery, Date: Possible cervical laminectomy In Addition:The patient does not have a history of complications with anesthesia or bleeding with prior surgeries.The patient does not have a history of venous thrombosis / pulmonary embolismTransfusion History: NoneHISTORIES (personally reviewed by me):Active Ambulatory Problems Diagnosis Date Noted No Active Ambulatory Problems Resolved Ambulatory Problems Diagnosis Date Noted No Resolved Ambulatory Problems No Additional Past Medical History No past surgical history on file.Social History Socioeconomic History Marital status: Spouse name: Not on file Number of children: Not on file Years of education: Not on file Highest education level: Not on file Occupational History Not on file Tobacco Use Smoking status: Former Types: Cigarettes Passive exposure: Never Smokeless tobacco: Never Substance and Sexual Activity Alcohol use: Not on file Drug use: Not on file Sexual activity: Not on file Other Topics Concern Not on file Social History Narrative Not on file Social Determinants of Health Financial Resource Strain: Low Risk (03/29/2023) Overall Financial Resource Strain (CARDIA) Difficulty of Paying Living Expenses: Not hard at all Food Insecurity: No Food Insecurity (03/29/2023) Hunger Vital Sign Worried About Running Out of Food in the Last Year: Never true Ran Out of Food in the Last Year: Never true Transportation Needs: No Transportation Needs (03/29/2023) PRAPARE - Transportation Lack of Transportation (Medical): No Lack of Transportation (Non-Medical): No Physical Activity: Inactive (03/29/2023) Exercise Vital Sign Days of Exercise per Week: 0 days Minutes of Exercise per Session: 0 min Stress: Not on file Social Connections: Unknown (03/29/2023) Social Connection and Isolation Panel [NHANES] Frequency of Communication with Friends and Family: More than three times a week Frequency of Social Gatherings with Friends and Family: Not on file Attends Rastafarian Services: Not on file Active Member of Clubs or Organizations: Not on file Attends Club or Organization Meetings: Not on file Marital Status: Patient refused Intimate Partner Violence: Not on file Housing Stability: Low Risk (03/29/2023) Housing Stability Vital Sign Unable to Pay for Housing in the Last Year: No Number of Places Lived in the Last Year: 2 Unstable Housing in the Last Year: No No family history on file. Home medications:Prior to Admission medications Not on File External medications were found from [facility] [place] and reconciled as belowCurrent Discharge Medication List STOP taking these medications acetaminophen-codeine 300-60 mg tablet Comments: Reason for Stopping: amLODIPine 5 mg tablet Comments: Reason for Stopping: EVE RODRIGUEZ U-100 INSULIN 100 unit/mL (3 mL) injection Comments: Reason for Stopping: BD INSULIN PEN NEEDLE UF 31 gauge x 5/16" Ndle Comments: Reason for Stopping: JANUVIA 50 mg tablet Comments: Reason for Stopping: losartan 50 mg tablet Comments: Reason for Stopping: meloxicam 7.5 mg tablet Comments: Reason for Stopping: omeprazole 20 mg capsule Comments: Reason for Stopping: pregabalin 50 mg capsule Comments: Reason for Stopping: tolterodine LA 2 mg 24 hr capsule Comments: Reason for Stopping: traMADoL 50 mg tablet Comments: Reason for Stopping: Current Medications:Scheduled meds:[START ON 03/30/2023] amLODIPine, 5 mg, DAILYinsulin glargine, 60 Units, QHS[START ON 03/30/2023] losartan, 50 mg, DAILY[START ON 03/30/2023] omeprazole, 20 mg, DAILY[START ON 03/30/2023] tolterodine LA, 2 mg, DAILYcyclobenzaprine, 5 mg, TIDdocusate, 100 mg, DAILYenoxaparin (LOVENOX) SC Syringe, 40 mg, DAILYinsulin lispro (human), , TID MEALS+HSIV meds: PRN meds:acetaminophen, 650 mg, N4PQRFctyshgdf 50 % in water (D50W), 25 mL, PRNglucagon, 1 mg, PRNhydralAZINE, 10 mg, P2KBHLdoxbyvcdE, 20 mg, Q15MIN PRNmorpHINE, 2 mg, Z3LAXGvuhyjcwepmg, 4 mg, C4IJQXgbcxnibmodhi glycol (MIRALAX, CLEARLAX, HEALTHYLAX) oral powder, 17 g, PRN - SEE INSTRUCTIONSALLERGIESNo Known AllergiesREVIEW OF SYSTEMSAll systems negative except as otherwise stated in HPIPHYSICAL EXAMBP 122/62 | Pulse 69 | Temp 36.7 ?C (98 ?F) | Resp 18 | Ht 1.6 m (5' 3") | Wt 90.3 kg (199 lb) | SpO2 96% | BMI 35.25 kg/m? Physical ExamVitals reviewed. Constitutional: General: Patient is not in acute distress. Appearance: Normal appearance. HENT: Right Ear: External ear normal. Left Ear: External ear normal. Nose: Nose normal. Eyes: Extraocular Movements: Extraocular movements intact. Conjunctiva/sclera: Conjunctivae normal. Cardiovascular: Rate and Rhythm: Normal rate and regular rhythm. Pulses: Normal pulses. Heart sounds: Normal heart sounds. No murmur heard. Pulmonary: Effort: Pulmonary effort is normal. No respiratory distress. Breath sounds: Normal breath sounds. No wheezing. Abdominal: General: Bowel sounds are normal. There is no distension. Palpations: Abdomen is soft. Tenderness: There is no abdominal tenderness. Musculoskeletal: General: No swelling or tenderness. Normal range of motion. Neck in cervical collarSkin: General: Skin is warm. Coloration: Skin is not jaundiced. Findings: No lesion. Neurological: General: No focal deficit present. Mental Status: patient is awake, alert, movies all extremities spontaneously, answers questions appropriately LABS/IMAGING - reviewed, recent results as below:Lab Results Component Value Date/Time NA 137 03/29/2023 06:20 AM K 4.1 03/29/2023 06:20 AM CA 9.6 03/29/2023 06:20 AM CL 103 03/29/2023 06:20 AM BUN 23 03/29/2023 06:20 AM CREAT 0.72 03/29/2023 06:20 AM EGFR 78.1 03/29/2023 06:20 AM GLU 214 (H) 03/29/2023 06:20 AM TCO2 23 03/29/2023 06:20 AM WBC 8.47 03/29/2023 12:09 AM RBC 4.61 03/29/2023 12:09 AM PLT 195 03/29/2023 12:09 AM HGB 13.3 03/29/2023 12:09 AM HCT 39.8 03/29/2023 12:09 AM PTINR 1.1 03/29/2023 12:09 AM PTPAT 12.5 03/29/2023 12:09 AM APTTPAT 28 03/29/2023 12:09 AM NTBNP 130 03/29/2023 06:20 AM TROPNI 0.003 03/29/2023 06:20 AM Most Recent UA:No results found for: "UPROTEIN", "UPH", "UGLUCOSE", "UKETONES", "UBILI", "UBLOOD", "UUROBILIN", "ULEUKEST", "UNITRITE", "USPGRAV"Radiology (48 HRS):CT CERVICAL SPINE WO CONTRASTResult Date: . No acute or adverse change compared to the prior exam. 2. Stable probable metastatic foci involving C5 and C6 with a stable pathologic fracture involving C5. 3. Stable mild-moderate regions of neural foramen stenosis as described above. 5. No critical regions of central spinal canal stenosis. AF: 66644. RL: 8228. Cardiographics (if applicable):ECG: Echo: Stress Test: CXR:PERIOPERATIVE RISK ASSESSMENT CALCUATIONS:All from MD thornton, calculated today unless stated otherwiseFunctional Status/Newton Activity Score Index:1.75 or 2.96 METsRCRI (Landa Index):1, 6.0 %Brar Perioperative Risk of [place] or Cardiac Arrest:1.3 % risk of periop MIAUB-HAS2 Cardiac Calculator:1, approx 1.6%risk of periop MIARISCAT:Low riskASSESSMENT & PLAN:C5 fracture with myelopathyDM2 with hyperglycemiaDysuriaChronic, stable conditions:HTNGERDOAOveractive bladderFrequent UTIsPatient with poor functional status and is at elevated cardiac risk for surgery, however if this is considered an urgent procedure needing to be done <6 weeks would proceed without any further work-up as benefits likely outweigh risks. We will check troponin and brain naturetic peptide for preoperative risk stratification, and BNP less than 300 will be considered low risk and would subvert the need for any stress testing if it is a procedure that could be delayed 6 weeks. Have resumed home antihypertensives and other medications including lantus at reduced dose of 60 units (takes 80 at home). Continue sliding scale, will check a1c. Will check UA to r/o UTI as pt c/o symptoms. Thank you for allowing me to participate in your patients care with you, will follow. Madeline Parks is a 78 year old year old female seen for perioperative risk assessment and medical optimization prior to surgery. The patient has the following that may increase general perioperative risk: diabetes requiring insulin, advanced age, poor functional statusFor cardiovascular risk assessment, per the [employer] guidelines, Proceed as scheduled without further testing or consultationBased on my assessment and experience, the patient's functional status is below average for their age and gender.Overall, the patient is considered High Risk for perioperative complications for the planned procedure. Therefore, Madeline Parks is considered medically optimized for the planned procedure: No*DVT Prophylaxis: Per Primary Code Status: presumed fullDispo: TBDMedical Barriers to discharge: workup, PT/OT, possible surgeryJuskatie Gilman MD,Surgical Co-Management HospitalistAlds hospitalt Professor General Internal MedicinePortions of this note were created using a voice-recognition transcribing system. Typographical errors and incorrect words or phrases may have been missed during proofreading. Please interpret accordingly. 05518-1Ugvgtzq tbgoNN4280-56-67I16:12:13Consult noteTXT1.2.840.349175.1.13.104.2.7.2 .732670|[id number] for patient twie41933-4Nmqqtuv noteLNUTMB49 [address] StreetEmmvTezlgnzxmXcycyvzotRAXH9249919931 WLODHNLEULWOXFTHKXQAKL8271-66-72Q45: 12:131.2.840.708528.1.72.3.15|1.2.84 0.137230.1.13.104.2.7.2.727879_18731 99240 [facility] 2023-03-29 11:41:47 BOBo2fcaqtGx7O5dwbPBdzjE60cZ0tiLi3mK bgSdVDChQvYvQsXs6kb89LY8epJJ0151-74- 13T11:41:47Associated Order(s): CONSULT ORGAN PIPE VOICER-ADULT Care Management ConsultConsult received. Reason for consult: Please assess for discharge needs (SFA/DISPO)CM awaiting clinical notes for DC planning assessment. For urgent or immediate discharge needs please page on-call: [phone] Martinez, RN, MSN, ACMWeekend Care CoordinatorAvailable Thu-Thursday only Office: [phone]: This CM is not assigned to this team and is providing weekend coverage. Please inquire with nursing staff or assigned care management Thu-Thursday as applicable for more information involving the patient's plan of care/discharge plan. 71191-1Tljmrzh bedcYK2684-74-89W34:42:14Consult noteTXT1.2.840.125174.1.13.104.2.7.2 .656716|[id number] for patient lktj13309-0Hzbfkyx [id number] Martinez RNUT[address] VlvjMgtdychtwKgowubjjmRRUN4018716250 SYHFKCQJISZTYIWNIIBSQL9831-10-53D16: 42:141.2.840.614640.1.72.3.15|1.2.84 0.494496.1.13.104.2.7.2.727879_18731 42978 Marion Nieves RN [facility] 2023-03-29 10:05:00 oSeYOuZCCM+2BCJkJfq1sAtojHB4+d7CaBy3 XZ0RV+bftf0tVok+ckugrSGpLs989154-65- 13T10:05:00Associated Order(s): CONSULT ADULT PHYSICAL THERAPY Patient agreeable to working with physical therapy. Patient met supine.Recommend nursing staff utilize RW to safely assist patient with mobility out of the bed or chair.PHYSICAL THERAPY EVALUATIONConsult received, chart reviewed and evaluation complete this date. Patient is referred to PT for evaluation and treatment. Patient is a 78 year old female who presents to hospital for Cervical stenosis of spinal canal [M48.02] . Neck PainSpinal canal stenosis Discharge Recommendations: Therapy Needs and Potential:Patient would benefit from continued physical therapy services to address: decline in bed mobility decline in transfers decline in gait and/or balance decreased strength decreased endurance decreased coordinationPatient demonstrates good potential to improve and meet therapy goals with further physical therapy services.Patient appears motivated to improve their functional mobility and return to their previous level of function.Challenges to Home Transition: increased risk of fallsdecreased caregiver availabilitydecreased safety awarenessenvironmental barriersEquipment recommendations:rolling walkerCurrent Functional Status and/or Treatment: AM-PAC 6 Clicks (Raw Score 0=Dependent, 24=Independent; Low function Raw Score 0= Dependent, 32=Independent):Raw Score - Basic Mobility : 16T-Scale Score - Basic Mobility : 38.32 Bed Mobility:Rolling: Minimal AssistanceSupine-sit: Moderate AssistanceSitting balance Fair+Sit to supine: Minimal Assistance Patient requires 50% verbal/ visual cues for proper/ hand foot placement and use of bed rails. Transfers: sit-stand: Minimal AssistanceStand to sit: Minimal Assistance using Rolling WalkerStand pivot transfer: Minimal AssistanceStatic/dynamic standing balance: Fair Ambulation: Assisted patient with ambulation as follows: 2MWT 50 feet using Rolling Walker and Minimal Assistance.Patient presenting with Step-to gait pattern. Instructed patient in directional changes and head movements in all planes during gait trial resulting in periods of instability and periods of LOB. Patient requires 50% verbal cues for proper hand/ foot placement and walking sequence.Therapeutic exercise: patient educated in Adaptive equipment , Deep breathing, Energy conservation, Fall prevention, General strengthening, Relaxation/breathing techniques, and Safety awareness., instructed patient in the following: ankle pumps, straight leg raises, seated marching, and patient/caregiver instructed to perform HEP 1-2 times per day, 10 repetitions.Functional Outcome Measures: (Values within the past 12 hours) Tinetti Gait Score- # / 12Initiation of gait: Hesitancy or multiple attempts to startStep length: Only on foot passes the otherFoot clearance: Only one foot clears the floor during swing phaseStep Symmetry: Step lengths equalStep continuity: Stopping/dis-continuous stepsPath: Marked deviationTrunk: Marked sway or uses ADWalking: Heels apartTinetti Gait Score: 3Tinetti Gait Score Interpretation: < 7 - Increased risk for fallsTINETTI BALANCE SCORE- # / 16Sitting balance: Steady, safeArises: Able, uses arms to helpAttempts to Rise: Able, requires > 1Immediate standing balance (first 5 sec): Steady but uses walker or other supportStanding Balance: Steady but SONY > 4 inches or uses AD/other supportNudged 3 times *: Staggers, grabs, catches selfEyes closed*: SteadyTurning 360 degrees: Discontinuous steps and unsteadySitting down: Uses arms or motion not smoothTinetti Balance Score: 8Tinetti Balance Interpretation: < 9 - Increased risk for yrhlj1WBI - please see gait section for details. After session, patient up in chair. Call button provided. Communicated with Nahun Issa and pctPLAN OF CARE: While in the hospital, PT will follow patient at least 3 times per week,once or twice a day, per patient's tolerance and needs.See below for complete details. Admit Date: 03/28/2023 Hospital Diagnosis:Cervical stenosis of spinal canal [M48.02] PT Diagnosis: Difficulty walking, Weakness, Pain, and Abnormality of gait and balanceWeight Bearing Precaution: WBAT General Precautions: PPE used:Gloves, General, Fall,Purewick catheter, IV Bracing/Cast present or required:N/APMH: No past medical history on file.PSH: No past surgical history on file.Prior Living Situation: lives alone and in a apartment, no steps, has an elevator. Daughter in law checks on her via phone and visits daily. DME: Four wheeled walker with seatPrior level of Mobility: house hold ambulation, ambulates with Four wheeled walker with seat Suspected ischemic or hemorraghic stroke:NoSubjective: Reports no pain at rest on neck, c/o numbness of Right UEPatient/Family Goals: To get strong and stop falling. Patient/Family verbalizes understanding of condition: Yes PAIN: denies pain before and after sessionCOMMUNICATIONPrimary Language: Senegalese Able to Verbalize needs: Yes Vision:glasses Hearing:hard of hearing ORIENTATION/COGNITION:Oriented to: person, place, date/time, and situation Awake: Yes Alert: Yes Dizzy: No Follows Commands: Yes 1-Step Yes Multi-Step No Inconsistent: No NEUROLOGICALLight Touch: within functional limits bilateral LEHeel to alcantara: WFLTone: WNL BALANCE:Sitting: Static: Fair+ Dynamic: FairStanding: Static: Fair Dynamic: Poor+RANGE OF MOTION: within functional limits bilateral LE STRENGTH: 3+/5 (F+), bilateral LE ENDURANCE: Fair, Room air SKIN INTEGRITY: not intact, please see nurses notes for details. PROBLEM LIST: Decline in bed mobility, Decline in gait, Decline in transfers, Decreased strength, Decreased endurance, Decreased balance, Safety awareness deficits, Pain, and Decreased CoordinationASSESSMENT: Patient is a 78 year old female seen secondary to the above listed diagnosis. Patient would benefit from continued PT to address the above listed deficits to maximize independence and safety with functional mobility.Rehabilitation Potential: fair Goals: The following goals are to maximize independence and safety with functional mobility to eventually return to prior living situation and prior functional status. Upon discharge, patient and/or family will demonstrate the followin. Rolling: IndependentSupine-sit: IndependentSitting balance Excellent Sit to supine: Independent2. sit-stand: IndependentStand to sit: Independent using Rolling WalkerStand pivot transfer: Independent3. Independent with ambulation, Feet: 300 using least assistive device. 4. Demonstrate or verbalize understanding of home exercise program in order to continue with their rehab on their own.Treatment Plan: Gait training, Therapeutic exercise, Transfer training, Balance training, Bed mobility training, Equipment needs assessment, Safety education, patient/caregiver education, Pain management, and Neuromuscular Re-EducationPATIENT EDUCATION: Patient provided with preferred teaching of verbal information and demonstration on role of PT, plan of care, DC plans. Shows readiness to learn. Verbal instruction and Demonstration teaching provided. Individual is able to read and verbalizes understanding of teaching provided and accurately returns demonstration of skill.Total Time Tx Codes in Minutes: 23 minTotal Treatment Time in Minutes: 35 minKurt Pitts PT, DPT [facility] 32215-5Qsiosfh dinlMY0524-83-09Y11:02:29Consult noteTXT1.2.840.349176.1.13.104.2.7.2 .265299|[id number] for patient nvio40607-2Otajuga noteUT03 Johnston StreetKhovHygggxdygPecsdhcfyVOVI8056709848 JNXWDLTKHRQJGUFLYUTPWP4322-25-84I16: 02:291.2.840.668369.1.72.3.15|1.2.84 0.037077.1.13.104.2.7.2.727879_18731 08969 [facility] History and Physical Notes Date/Time Note Provider Source 2023-03-28 23:24:09 c+RghC/FsynZ/jEgdEJ5 Gp0qisipY/SpAAhflmgrNr rz+PVaILHI8nxi2DFaWoU15944-78-82G67:24:09F ormatting of this note is different from the original.NEUROSURGERY HISTORY AND PHYSICALAttending Neurosurgeon: Dr. Bang: Neck pain, RUE numbnessHPI: Madeline Parks is a 78 year old female with a PMH of DM2, HTN, HLD who presents as a transfer from [facility] for an evaluation of neck pain and RUE numbness. Patient reports symptoms began approximately 1 month ago after she fell into her shower. No LOC; she denies hitting her head. Since the incident, she has had intermittent neck pain with numbness involving the entire right arm to the fingers (non-dermatomal). She denies similar symptoms in the past. No prior neck trauma or procedures. Patient reports decreased balance since her fall. Additionally, her ability to ambulate has declined; she was ambulatory with assistance of a cane prior. No BLE symptoms, changes in bowel or bladder habits.MRI cervical spine w/o contrast from 03/19/2023 showing a severe compression fracture of C5 with bony retropulsion, resulting in a significant degree of spinal canal stenosis.ROS (BOLDED IF POSITIVE - otherwise negative)Constitutional: Nausea, Vomiting, Fevers, ChillsEyes: NegativeEars, nose, mouth, and throat: NegativeEndocrine: NegativeHematologic: NegativeCard: Chest pain, PalpitationsPulm: Cough, Shortness of breathGI: Diarrhea, ConstipationGU: NegativeInteg: Masses, Rashes, LesionsMsk: Weakness, Neck painNeuro: Headache, Vision changes, Dizziness, Weakness, Imbalance, RUE numbnessMedications (Current)Antiplatelets: NoneAnticoagulation: NoneNo current facility-administered medications on file prior to encounter. No current outpatient medications on file prior to encounter. Past Medical History:No past medical history on file.Past Surgical History: No past surgical history on file.Social History: Social History Tobacco Use Smoking status: Former Types: Cigarettes Smokeless tobacco: Never Family History:Not contributoryPEVitals: Vitals: 03/28/23 1812 03/28/23 1825 03/28/23 1915 03/28/23 2323 BP: 136/75 136/75 128/68 111/66 BP Location: Right arm Right arm Right arm Right arm Patient Position: Supine Pulse: 84 84 82 77 Resp: 16 18 Temp: 36.8 ?C (98.3 ?F) 36.8 ?C (98.3 ?F) 37.1 ?C (98.7 ?F) 36.6 ?C (97.9 ?F) SpO2: 95% 95% 90% 92% Weight: 90.3 kg (199 lb) Height: 1.6 m (5' 3") Exam:Awake, alert, oriented b1TDRLQ bilaterally at 3mmEOMI bilaterallyFace symmetricUPPER EXTREMITY STRENGTH EXAM: R 5/5 5/5 5/5 5/5 5/5 D(C5) B(C6) T(C7) Environmental Services Director(C8) I (T1)L 5/5 5/5 5/5 5/5 5/5 LOWER EXTREMITY STRENGTH EXAM: R 5/5 5/5 5/5 5/5 5/5 IP(L2) Q(L3) TA(L4) EHL(L5) G(S1)L 5/5 5/5 5/5 5/5 5/5Numbness throughout RUE in a non-dermatomal fashion; sensation otherwise intact to LT throughoutExam deep tendon reflexes: 1+ patellarsNo clonusNo Hurtado'sAssessment: Madeline Parks is a 78 year old female who presents as a transfer from an OSH for an evaluation of neck pain and RUE numbness. MRI cervical spine w/o contrast from 03/19/2023 showing a severe compression fracture of C5 with bony retropulsion, resulting in a significant degree of spinal canal stenosis.Plan:Admission labsMRI cervical spine w/ w/o contrastCT cervical spine w/o contrastCT chest, abdomen, and pelvis w/ contrastESR/CRPSCM consultationSBP goal <160 mmHgRegular dietSCDs, LovenoxAmbulate with assistanceNolan Moreland MDNeurosurgeryFor inquiries please page [phone] signed by Betito Nunes MD at 03/29/2023 11:00 AM CDTAssociated attestation - Betito Nunes MD - 03/29/2023 11:00 AM CDT I personally evaluated and am primary in decision making on, Madeline Parks, and I agree with the documentation by neurosurgery resident, Nolan Sin MD.84327-5Glfkfes and physical uxbfFG2234021Txcuyt, Rudy P1.2.840.153683.1.13.104.2.7.2.925532Fxbkx wZrxoBCD4921-46-57X14:00:49History and physical noteTXT1.2.840.697349.1.13.104.2.7.2.93407 9|[id number] for patient vlqg14928-3Xzvqocy and physical noteLNUTMBUT - [address] ZtyoMvabbfwokQbokhgkoyNJEM3569157747DHITCG BICRYEKGIGNUVUEK6398-44-36K60:00:491.2.840 .357869.1.72.3.15|1.2.840.261506.1.13.104. 2.7.2.727879_1873004603 [facility] Notes Date/Time Note Provider Source 2023-04-22 14:59:28 1EtmFAK3WI2vSA9aghV3 ne7ym+t/s UMfI1hc1q/9fNSg8Z8J5W9+Bh4Iou AFfhF94286-25-14K18:59:28Form atting of this note might be different from the original.Images from the original note were not included. 55379-1Giipgowpo encounter QgcgLZ9105-98-36B45:04:06Tele phone encounter NoteTXT1.2.840.210826.1.13.10 4.2.7.2.583365|[id number] ailable for patient fbml75734-4TjhcRC373461549Ivh fantasma [address] GedzSiokgqjmvKiqdvpuxkSEWF859 3015374OPWUKESIOSSPPIPIVGCDRG 6185-55-86O86:04:061.2.840.11 4350.1.72.3.15|1.2.840.486591 .1.13.104.2.7.2.727879_189254 7399 Chelsea Smith MA [facility] 2023-04-21 15:55:32 lBjEeCaBSgw69HKfa+BE KlmxF2B+P WXelnBOIoOpprC9Zd3URMTR62Km2E iGso3b6846-04-70M20:55:32Form atting of this note might be different from the original.Spoke with nurse at [facility]-Working on getting photos uploadedFaxed orders & Face sheet Confirmation Received 15610-3Nuibfwpln encounter MkouJP0288-88-80S65:58:11Tele phone encounter NoteTXT1.2.840.444562.1.13.10 4.2.7.2.604310|[id number] ailable for patient poun00504-2XcgcAD719783105Abc cie L Elliott [address]TX[address] 7336566WHOKXEZSDSDJMMLQCULCDT 5387-13-90G42:58:111.2.840.11 4350.1.72.3.15|1.2.840.999768 .1.13.104.2.7.2.727879_189141 2641 Chelsea Smith MA [facility] 2023-04-21 15:55:03 IDMjAOfmyfU20zXNgLTl 4mnImDvCB ssqhsHOLwIHFB0ShybGnmqmaMHGxv BOXACe1587-92-92U99:55:03Form atting of this note might be different from the original.Dup Encounter-Closing 16084-6Zloyybsux encounter AwyaOF2909-90-94D62:55:20Tele phone encounter NoteTXT1.2.840.140836.1.13.10 4.2.7.2.600766|[id number] ailable for patient zuvd88825-5VpzmBB808943426Dev cie L Elliott [address]TX[address] 1353793EKUBZQLOWHVMFBTACZFCXI 6341-45-10H18:55:201.2.840.11 4350.1.72.3.15|1.2.840.293342 .1.13.104.2.7.2.727879_189141 0243 Chelsea Smith MA [facility] 2023-04-21 15:38:29 7OsCAZ05YtlTtfYHEEUs 4Ss3GGL2j 3WytIwdzNC7Cf2oCsg7UUJUu9OxkO aO9V1e5764-63-12G17:38:29Form atting of this note might be different from the original.Okay for [facility] wound care staff to remove patient's césar. Prefer for their team to send picture of incisions if possible. 16139-6Sawukvfop encounter TubuWN5660-29-79I72:39:31Tele phone encounter NoteTXT1.2.840.498306.1.13.10 4.2.7.2.163904|[id number] ailable for patient kvao05566-3GdgaNYUIJPZCJV[address]TXTX[address] 8104434ZVDWTQOBUZJMAOXYHRQEJX 4825-22-98Y38:39:311.2.840.11 4350.1.72.3.15|1.2.840.810824 .1.13.104.2.7.2.727879_189138 4825 [facility] 2023-04-21 15:08:54 dszFTfycTt9FIyTo5n5t ShQ67sFUN 4zhMt+w3Ch+cxGjE+QD+gUEkbv9HC 8IBZyF0606-14-94C68:08:54Form atting of this note might be different from the original.Attempted to return call, invalid number for RN at [phone] signed by Billie Burk RN at 04/21/2023 3:09 PM MYN02092-8Jobgizern encounter SkoqBX0655-02-39A37:09:24Tele phone encounter NoteTXT1.2.840.732307.1.13.10 4.2.7.2.310861|[id number] ailable for patient iflu40633-7IdteIZ208562172Adi fany Hansen [address] 8542051ONYLGCWMAMOBJKNNSLWOKA 4559-71-51Q92:09:241.2.840.11 4350.1.72.3.15|1.2.840.399301 .1.13.104.2.7.2.727879_189134 2395 Billie Wm CARROLL [facility] 2023-04-21 14:53:38 59k4SyplLuURyncbgM8+ K0EKpwinF X8qv7Gw31azD4HcSYb6qlNRnuBhMQ q0NIMs8217-79-36E96:53:38Form atting of this note might be different from the original.Madeline Parks is a 78 year old femalePatient nurse is calling asking if she needs a new appointment for césar removal or if she can remove it. Please advice thank you 57199-4Jwuakqlmh encounter BgmpVT6778-61-43L37:55:05Tele phone encounter NoteTXT1.2.840.442382.1.13.10 4.2.7.2.035886|[id number] ailable for patient flam44737-8MvpmUT178104257Gly yimi Benjamin [address] ZwxdAgzreajwoNmeyufuvuGHIY799 1228154QZFFZWPBGHIMUYWRRUYCNQ 8457-24-45A09:55:051.2.840.11 4350.1.72.3.15|1.2.840.205706 .1.13.104.2.7.2.727879_189132 0070 Marion Benjamin V [facility] 2023-04-21 11:43:27 DAoqQH1fyZ14piOjx7OL kPj2ijsKz 39XnH112bx3zHN6j5YkxhNkcPu4I6 pqIAIv8230-70-91S21:43:27Form atting of this note might be different from the original.Preferred Csukwulvxeiflb signed by Chelsea Smith MA at 04/21/2023 11:45 AM UIX28562-0Xkvdhmzdd encounter SokhEG4844-16-09W51:45:05Tele phone encounter NoteTXT1.2.840.236770.1.13.10 4.2.7.2.959025|[id number] ailable for patient bxrg71053-4WaidEXLZSKAHOF[address]TXTX[address] 3564796LCXPSHOLLBKUKHEMJPVKKJ 4624-51-77R43:45:051.2.840.11 4350.1.72.3.15|1.2.840.339994 .1.13.104.2.7.2.727879_189108 [address] [place] [address] 2023-04-21 11:30:07 rB6R5KSa+5UAHiMV7L+e OFs9Ea2/1 veRkxgtZxUJPkuW6A/gz4n+rv9Ecf pJVmwr3578-18-58R40:30:07Form atting of this note might be different from the original.Madeline Parks is a 78 year old female Avis daughter in law calling states that [facility] is able to remove the césar for patient. They are in [place] and do not transport out of the [facility]. Patient will not be able to make her appt tomorrow. Please contact Wound Care at: PH: [phone]: [phone] advise, thanks. 64211-7Lbwyszurx encounter YxjiBD3966-01-88A76:31:25Tele phone encounter NoteTXT1.2.840.783714.1.13.10 4.2.7.2.461322|[id number] ailable for patient daya81563-8JlkkUJ804614121Jje morgan Hay[address]TXTX[address] 2564806HURITNVDPORASYZYCARLDU 0576-38-06V77:31:251.2.840.11 4350.1.72.3.15|1.2.840.108425 .1.13.104.2.7.2.727879_189106 4820 Yeimy Hay [facility] 2023-04-17 12:29:34 kWsaU8EjDD/fzgB3UmFw lqUhO7Pwg xq2Ift8wmhJ/Ddr8XSXUYoDmOJIPZ B2T2lp0893-44-41H10:29:34Form atting of this note might be different from the original.Spoke with daughter, she said hospital told her that she needed to follow up with an oncologist for breast cancer. She said they have received a diagnosis of breast cancer from biopsy and told her they sent a referral for obgyn onc and they were just trying to get pt scheduled as soon as possible. I explained the new patient process and told her about the referral process as well and she understood the process. I told her I would reach out to Isa Hatfield or the referral team to see if they have received anything because the referrals in her chart say that they have been closed out. Thanks! 43467-3Jdkgcovxm encounter CzqbBS5481-35-46H22:41:03Tele phone encounter NoteTXT1..840.627408.1.13.10 4.2.7.2.757022|[id number] ailable for patient qnxr52687-5ZaouVC474842097Vha me Yulsia Ochoa[address] LcubJntdfujbyRevnqmqsbOJRS367 6297858YAFPLWABNPDZJBMTFVBMKX 2335-27-11Q01:41:031.2.840.11 4350.1.72.3.15|1.2.840.716769 .1.13.104.2.7.2.727879_188935 7254 Anish Singh [facility] 2023-04-17 10:51:24 OdKFjdr7A7S8hF+NyrfK GYfBupbi9 HyPgNxfJy6DoTHDKDZXv/QtlFAbM7 PlNvfS0927-57-71T38:51:24Form atting of this note might be different from the original.Please advise 79406-2Beuzpgjzq encounter OxifOU5150-63-16T27:51:30Tele phone encounter NoteTXT1.2.840.641369.1.13.10 4.2.7.2.110930|[id number] ailable for patient xhog05342-5QvqnKG091706717Bvv diandra Kellie David[address]vdGalvestonGalvestonTXTX[address] 6900956GIZWEQXGILFEZLHZRZIADV 1058-53-94F75:51:301.2.840.11 4350.1.72.3.15|1.2.840.759443 .1.13.104.2.7.2.727879_188924 4486 Liza Pate [facility] 2023-04-16 10:33:00 5Relo9Dggwuifzdx50y8 /D1FoNhUT 1dipMTUBAmJjfdHFizQ2My4lBahcX Kkq+g44614-19-29X45:33:00Form atting of this note might be different from the original.Madeline Parks is a 78 year old female daughter in law calling to schedule Oncology appointment. Please call [phone] signed by Rebecca Suarez at 04/16/2023 10:34 AM KQV76689-1Ebjmvvhgr encounter AmukFB0324-91-73Q96:34:13Tele phone encounter NoteTXT1.2.840.683899.1.13.10 4.2.7.2.790669|[id number] ailable for patient vohp48957-5SpynIX289260595Huc ra Sim[address] WdwbXvyxetdepOluldrwjvHESK507 2672551EZFQWKPEQQHUJYMHVEZKWJ 4651-26-30J66:34:131.2.840.11 4350.1.72.3.15|1.2.840.171011 .1.13.104.2.7.2.727879_188807 8923 Rebecca Suarez [facility] 2023-04-15 10:28:56 VKenjEG76gAQJlUj+vuv ctOUTELng Qo3JgXGbjSO7vXKz5cLk5UAMTNsKg zmdp/z4877-66-37Z30:28:56Form atting of this note is different from the original.TRANSITIONAL CARE MANAGEMENT ASSESSMENT04/15/2023 Madeline ParksAhqav272404WEjngfej Ann Ellis is a 78 year old /White female was admitted on 03/28/[address] She was discharged on 04/14/23 with discharge disposition of HR- Routine Discharge.Admitting Physician: Betito Nunes PDischarge Diagnosis: cervical myelopathy, spine metastasisNo linked episodesTCM Rez-ggeb-bh-face outreach documentation:Discharge AssessmentChart Assessed: 04/15/23Chart Reviewed - Post Discharge Call Deferred due to Change in Discharge Status.: Discharged to SNF (SNF location: ([place] [address]; phone: [phone]; fax: [phone]))TCM Outreach Completed: 04/15/23 Future Appointments: Future Appointments Provider Department Dept Phone 04/22/2023 11:00 AM [facility], [facility] [place] [phone] 05/12/2023 11:00 AM [facility] [phone] 27215-5Cbketfieb encounter QeaaCT4665-10-82G54:29:58Tele phone encounter NoteTXT1.2.840.201957.1.13.10 4.2.7.2.104093|[id number] ailable for patient [id number] khushbu Genao RN[address] 0911727VBDDJLUZKCRYUCFGOALEOJ 1048-50-86B57:29:581.2.840.11 4350.1.72.3.15|1.2.840.339958 .1.13.104.2.7.2.727879_[id number] 8256 David Genao RN [facility] 2023-04-14 01:12:13 YhNYXuNaMuICsHwVYE2p Wccz6Z5dI SkWmDD+bEh/LbvvwvmLd4dkojeEzH 5M2xzJ4674-46-60O24:12:13Form atting of this note might be different from the original.Problem: Discharge PlanningGoal: Adequate for dischargeOutcome: Progressing as expectedGoal: Effective communicationOutcome: Progressing as expected Problem: PainGoal: Control of pain at or below patient's documented comfort goalOutcome: Progressing as expectedGoal: Reduction in pain sensationOutcome: Progressing as expected Problem: Falls, Risk ofGoal: Absence of fallsOutcome: Progressing as expected Problem: Mobility - ImpairedGoal: Able to achieve maximum mobility levelOutcome: Progressing as expected Problem: Procedure RoutineGoal: Absence of post-procedure complicationsOutcome: Progressing as expectedGoal: Knowledge of procedureOutcome: Progressing as expected Problem: Infection RiskGoal: Absence of infectionOutcome: Progressing as expected 27877-1Zpwx of care nbyvPI4564-99-68X24:12:19Plan of care noteTXT1.2.840.959296.1.13.10 4.2.7.2.644045|[id number] ailable for patient [id number] an E Nichols RNUT[address]TX[address] 1077152QZMLBHZPVMOIPSXLRFFAUD 4127-71-36V01:12:191.2.840.11 4350.1.72.3.15|1.2.840.943832 .1.13.104.2.7.2.727879_[id number] 1223 Nelida Peña [facility] 2023-04-13 00:42:02 BWyAknY2LB51jlaXespF tyEMeESyl U5I9DB2mhUddJ+VaXGa6phRGMfI/1 By+A6008-08-74I81:42:02Form atting of this note might be different from the original.Problem: Discharge PlanningGoal: Adequate for dischargeOutcome: Progressing as expectedGoal: Effective communicationOutcome: Progressing as expected Problem: PainGoal: Control of pain at or below patient's documented comfort goalOutcome: Progressing as expectedGoal: Reduction in pain sensationOutcome: Progressing as expected Problem: Falls, Risk ofGoal: Absence of fallsOutcome: Progressing as expected Problem: Mobility - ImpairedGoal: Able to achieve maximum mobility levelOutcome: Progressing as expected Problem: Procedure RoutineGoal: Absence of post-procedure complicationsOutcome: Progressing as expectedGoal: Knowledge of procedureOutcome: Progressing as expected Problem: Infection RiskGoal: Absence of infectionOutcome: Progressing as expected 02289-8Llkf of care qtplBG7890-64-22B16:42:05Plan of care noteTXT1.2.840.392326.1.13.10 4.2.7.2.075780|[id number] ailable for patient ogbf78727-0CdqiNKALSHGGEU60 [address]TXTX[address] 1007718TJOOMHOJFZTCEARMDUEXVE 3797-90-73W26:42:051.2.840.11 4350.1.72.3.15|1.2.840.203326 .1.13.104.2.7.2.727879_188451 3176 [facility] 2023-04-12 10:54:13 lpiIRmrB0EQvXgCO8Ft6 BTCD8yz20 /Vq6LnuhNip6kei2XUwLMg2aYoMPq le5AqZ9380-47-88Z94:54:13Form atting of this note might be different from the original.Pt mews 5 paged resource nurse. Already in room placing IV and drawing blood. Pt appears to be in no distress. Xray at bedside. Spoke with primary RN. States "patient is tachycardic 110s but I am not worried about her". Based on resource assessment of patient, resource nurse agrees. Pt left sitting up in bed comfortable. 46378-2Wflzd PadwFJ0528-99-36Z51:56:15Nurs e NoteTXT1.2.840.328686.1.13.10 4.2.7.2.161152|[id number] ailable for patient pcdn90845-4PpoxWA971139713Ush mamta Amaya RN[address] WhhvNcgcjvhzgHmooozoxsWSKC766 3259436ZTSRWNWTHQBWWOQCAFCOVU 6052-43-01Q18:56:151.2.840.11 4350.1.72.3.15|1.2.840.589937 .1.13.104.2.7.2.727879_188440 7846 Rona Amaya RN [facility] 2023-04-12 01:50:47 301uywZ9mc20H1vETJtP LyFWrQiD5 GJUlivV///rpHGIsGt7V62utpQG5I g4fbtP9199-37-61O10:50:47Form atting of this note might be different from the original.Problem: Discharge PlanningGoal: Adequate for dischargeOutcome: Progressing as expectedGoal: Effective communicationOutcome: Progressing as expected Problem: PainGoal: Control of pain at or below patient's documented comfort goalOutcome: Progressing as expectedGoal: Reduction in pain sensationOutcome: Progressing as expected Problem: Falls, Risk ofGoal: Absence of fallsOutcome: Progressing as expected Problem: Mobility - ImpairedGoal: Able to achieve maximum mobility levelOutcome: Progressing as expected Problem: Procedure RoutineGoal: Absence of post-procedure complicationsOutcome: Progressing as expectedGoal: Knowledge of procedureOutcome: Progressing as expected Problem: Infection RiskGoal: Absence of infectionOutcome: Progressing as expected 26747-4Itdz of care qaogLN8856-46-40I46:50:53Plan of care noteTXT1.2.840.961186.1.13.10 4.2.7.2.878729|[id number] ailable for patient serz89439-5WnfrUO489222444Ryy henry Burt RN[address] 8659123SBXSDCPLAKVJKJTJUZETNI 4786-58-04B56:50:531.2.840.11 4350.1.72.3.15|1.2.840.117572 .1.13.104.2.7.2.727879_188426 8846 Suze Burt RN [facility] 2023-04-11 11:32:04 HK3PB+4LJiRmBEtHneyg dtACCsp/y /L6ELozWeYpJ7KaADUQtV7GW71Z0p p4S9iW0288-41-88I57:32:04Form atting of this note might be different from the original.Problem: Discharge PlanningGoal: Adequate for dischargeOutcome: Progressing as expectedGoal: Effective communicationOutcome: Progressing as expected Problem: PainGoal: Control of pain at or below patient's documented comfort goalOutcome: Progressing as expectedGoal: Reduction in pain sensationOutcome: Progressing as expected Problem: Falls, Risk ofGoal: Absence of fallsOutcome: Progressing as expected Problem: Mobility - ImpairedGoal: Able to achieve maximum mobility levelOutcome: Progressing as expected Problem: Procedure RoutineGoal: Absence of post-procedure complicationsOutcome: Progressing as expectedGoal: Knowledge of procedureOutcome: Progressing as expected Problem: Infection RiskGoal: Absence of infectionOutcome: Progressing as expected 43798-3Slzg of care bfnrWV8177-02-12B32:32:11Plan of care noteTXT1.2.840.228457.1.13.10 4.2.7.2.813308|[id number] ailable for patient [id number] ole Thompson RN[address] 1492046HSRXQXNUYREVQHHZYACRHS 8218-24-71B47:32:111.2.840.11 4350.1.72.3.15|1.2.840.602618 .1.13.104.2.7.2.727879_188416 0307 Rema Kruger RN [facility] 2023-04-11 07:36:55 rp3ZkilLpRpFDCh2Op6P XzPZOFvHE Ozg50eoW6t5RSJ+PYx7iAZMQdcMTd 2WGDXb8147-27-18V82:36:55Form atting of this note might be different from the original.Problem: Discharge PlanningGoal: Adequate for dischargeOutcome: Progressing as expectedGoal: Effective communicationOutcome: Progressing as expected Problem: PainGoal: Control of pain at or below patient's documented comfort goalOutcome: Progressing as expectedGoal: Reduction in pain sensationOutcome: Progressing as expected Problem: Falls, Risk ofGoal: Absence of fallsOutcome: Progressing as expected Problem: Mobility - ImpairedGoal: Able to achieve maximum mobility levelOutcome: Progressing as expected Problem: Procedure RoutineGoal: Absence of post-procedure complicationsOutcome: Progressing as expectedGoal: Knowledge of procedureOutcome: Progressing as expected Problem: Infection RiskGoal: Absence of infectionOutcome: Progressing as expected 56236-2Hawk of care fjobUG0863-82-28Q56:37:00Plan of care noteTXT1.2.840.055472.1.13.10 4.2.7.2.880150|0668436283SLPg ailable for patient oyzz45212-6FxqiCK184223819Nfw bolivar Silva RN[address] 3119755GLFZTBYSFKGXMLHJOTBAXA 0022-65-11P38:37:001.2.840.11 4350.1.72.3.15|1.2.840.229057 .1.13.104.2.7.2.727879_188408 7022 Moni Silva RN [facility] 2023-04-10 11:32:11 /vTpOT3IDnN5b+8R8KTO GXL1ehYuX s/CFNK+2fkRfwyqXK9jke1X1YuQ9h 3EhCCz6674-61-72L23:32:11Form atting of this note might be different from the original.Problem: Discharge PlanningGoal: Adequate for dischargeOutcome: Progressing as expectedGoal: Effective communicationOutcome: Progressing as expected Problem: PainGoal: Control of pain at or below patient's documented comfort goalOutcome: Progressing as expectedGoal: Reduction in pain sensationOutcome: Progressing as expected Problem: Falls, Risk ofGoal: Absence of fallsOutcome: Progressing as expected Problem: Mobility - ImpairedGoal: Able to achieve maximum mobility levelOutcome: Progressing as expected Problem: Procedure RoutineGoal: Absence of post-procedure complicationsOutcome: Progressing as expectedGoal: Knowledge of procedureOutcome: Progressing as expected Problem: Infection RiskGoal: Absence of infectionOutcome: Progressing as expected 30433-7Wxfk of care ltjrMV6499-18-39S55:32:19Plan of care noteTXT1.2.840.624759.1.13.10 4.2.7.2.661196|[id number] ailable for patient oadm85890-6PrpjVGXQMWMGKV[address]TXTX[address] 5250695HTZFRKIMBDWVHNOJYFKFCM 1741-66-64U32:32:191.2.840.11 4350.1.72.3.15|1.2.840.229071 .1.13.104.2.7.2.727879_[id number] 2327 [facility] 2023-04-09 11:19:14 SXmg7A54aB8h1vHuahof pxwheaRwr 12JlFVpD47qe8L3FOAbiSbB0bMX2h 5n51126868-39-57D29:19:14Form atting of this note might be different from the original.Problem: Discharge PlanningGoal: Adequate for dischargeOutcome: Progressing as expectedGoal: Effective communicationOutcome: Progressing as expected Problem: PainGoal: Control of pain at or below patient's documented comfort goalOutcome: Progressing as expectedGoal: Reduction in pain sensationOutcome: Progressing as expected Problem: Falls, Risk ofGoal: Absence of fallsOutcome: Progressing as expected Problem: Mobility - ImpairedGoal: Able to achieve maximum mobility levelOutcome: Progressing as expected Problem: Procedure RoutineGoal: Absence of post-procedure complicationsOutcome: Progressing as expectedGoal: Knowledge of procedureOutcome: Progressing as expected Problem: Infection RiskGoal: Absence of infectionOutcome: Progressing as expected 54482-6Lrjz of care zhyfVT6029-80-19J66:19:24Plan of care noteTXT1.2.840.533882.1.13.10 4.2.7.2.560633|8637682453PVCk ailable for patient rful49240-7OybaSHVDPOZQFE[address]TX[address] 6884086UZVEECHGNPQLKCARDVYZJU 3440-07-40O79:19:241.2.840.11 4350.1.72.3.15|1.2.840.136824 .1.13.104.2.7.2.727879_[id number] 2153 [facility] 2023-04-08 11:31:16 8AznBonAYCQ1A+WEaVJx JOmrsCiaU AITT8fgpkqe/F6xNum/sewhC3u0HV 9EBIg80023-64-17M15:31:16Form atting of this note might be different from the original.Problem: Discharge PlanningGoal: Adequate for dischargeOutcome: Progressing as expectedGoal: Effective communicationOutcome: Progressing as expected Problem: PainGoal: Control of pain at or below patient's documented comfort goalOutcome: Progressing as expectedGoal: Reduction in pain sensationOutcome: Progressing as expected Problem: Falls, Risk ofGoal: Absence of fallsOutcome: Progressing as expected Problem: Mobility - ImpairedGoal: Able to achieve maximum mobility levelOutcome: Progressing as expected Problem: Procedure RoutineGoal: Absence of post-procedure complicationsOutcome: Progressing as expectedGoal: Knowledge of procedureOutcome: Progressing as expected Problem: Infection RiskGoal: Absence of infectionOutcome: Progressing as expected 12657-3Guzd of care qunqKJ5906-98-37N95:31:26Plan of care noteTXT1.2.840.369525.1.13.10 4.2.7.2.363791|[id number] ailable for patient cbrl01498-3TmagFANJPDZDIT[address] UkjdPsuemtrueRktkumlkqBKNU282 4856648OFSOBUUPMSAVGFHRCFKNPO 1421-40-48P61:31:261.2.840.11 4350.1.72.3.15|1.2.840.990540 .1.13.104.2.7.2.727879_188130 8281 [facility] 2023-04-08 10:30:48 /Meg/aYM6Fml3EZ++IBJ 6iDColCkp +oSR1ugfMaLBO/+wu819Ocl7wu0Kq nUi2EH5296-29-65B79:30:48Form atting of this note might be different from the original.NEUROSURGERY OPERATIVE REPORTDATE OF SURGERY: 04/08/2023 FACULTY SURGEON: LEONIE SavageDENT SURGEON: DYAN ArauzREOPERATIVE DIAGNOSIS: Cervical myelopathy, Spine metsPOSTOPERATIVE DIAGNOSIS: SameOPERATION: C2-T2 posterior instrumentationC4/C5 laminectomy, C56 bilateral foraminotomyC2-T2 posterior arthrodesisUse of MicroscopeHISTORY: Patient is a 78 year old female who presented as a transfer from an outside hospital for neck pain and right arm weakness/numbness starting after a fall in the shower 1 month prior. Imaging of the cervical spine demonstrated a severe pathologic compression fracture of C6 and lytic lesions of the C5 and C6 vertebral bodies concerning for metastatic disease. Underwent a C5/6 corpectomy and C4-C7 anterior fusion on 03/31. Given the continued compression at C45 and the risk of pseudoarthrosis from a multi-level corpectomy, the decision was to instrument posteriorly. All risks and benefits were explained in detail, and informed consent was obtained.PROCEDURE: The patient was brought to the operating room, intubated and sedated by the anesthesia service. She was positioned prone on Flat Geremias bed with Gel rolls and Face pillow. All pressure points were padded appropriately. A cross-table X-ray was done to localize the level and to plan the incision. The incision was marked. Local anesthesia was injected. The incision was prepped and draped in standard sterile fashion. Antibiotics were given prior to skin incision. A time-out was performed. A 10-blade knife was used to make a midline skin incision. We then used Bovie electrocautery to complete subperiosteal exposure from C2 to T2. The SolarBuddy navigation array was attached to the inferiormost spinous process. An O-arm spin was done for neuronavigation. Accuracy was confirmed with bony landmarks. Using neuronavigation, we first placed C2 pars screws bilaterally without complication. We then proceeded to place T1 and T2 pedicle screws using neuronavigation without complication. Attention was then turned to the subaxial cervical spine screws from C3-C6. We drilled our initial balloon pilot holes for our lateral mass screw placement. We used a hand twist drill set to 12 mm to drill screw trajectories from C3-C6 bilaterally, using anatomic landmarks and navigation for confirmation for lateral mass screw placement. We then probed each of the holes to ensure there were no cortical breaches. We then placed 12 mm screws from the Globus posterior instrumentation system from C3-C6 bilaterally, skipping Left C5 due to the presence of tumor in the lateral mass. We then brought in the operative microscope and proceeded with the decompression portion of our surgery, drilling at the lamina facet junction down to ligament from C4-C5, drilling troughs bilaterally. Once these troughs were completed, we then were able to elevate the lamina and spinous processes from C4-C5 in 1 large piece. We then used a series of Kerrisons to remove the remaining ligamentum. The dura reassumed its full shape after the decompression was complete. Bilateral foraminotomies were performed at C5-6. We then palpated each of the nerve roots to ensure there was no additional foraminal stenosis. We then identified the appropriate length prelordotic rods and placed these as well and secured these using overlying set screws. We then irrigated, final tightened and locked the screws. We then irrigated the wound copiously and obtained meticulous hemostasis. We then decorticated bilaterally from C2-T2 for arthrodesis, and then placed allograft bone chips along the gutters bilaterally to assist with fusion. We placed a medium Hemovac drain and then closed in the usual fashion using 0 Vicryl for fascia, 2-0 Vicryl for dermis, and césar for the skin. There were no immediate complications. The patient was taken to PACU in stable condition postoperatively.Estimated blood loss: 100 ccComplications: None immediateBrian MD OswaldNeurosurgery ssociated attestation - Natalie Ridley MD - 04/09/2023 10:22 AM CDT I was present for all critical portions of the procedure.CPT 56672, 96211 x 6, 04712 and 52351, 50729, 09970, 9836798245-5Smnhqjh Surgical operation ovkpWV4519210Ndeq, Rishi1.2.840.448927.1.13.104. 2.7.2.041677WxfvCwiijKY3985-5 0:22:36Surgery Surgical operation noteTXT1.2.840.815088.1.13.10 4.2.7.2.579264|[id number] ailable for patient gros12337-6CawtNTCO-UQWYTKYMW [facility] GsyfXpzuiwnocNgglpspzaBUPO297 1318913VEYGSPFMHDCAPBYLGMVMGT 1929-15-88F93:22:361.2.840.11 4350.1.72.3.15|1.2.840.632781 .1.13.104.2.7.2.727879_188148 9534 NS-NEUROLOGICAL SURGERY [facility] 2023-04-08 10:30:48 yNTUhGQBlrirLvtTICpD HHcypqIhd 5e5WAH3kITTjByoTWAVAZ5mVK8kl7 I2XHrE7605-59-57L62:30:48Form atting of this note is different from the original.BRIEF NEUROSURGERY OPERATIVE NOTEDate of Surgery: 04/08/2023 Faculty: SHONA Savageesident(s): Jose Arauzthesibolivar Type: GeneralPre-operative diagnosis: cervical myelopathy, spine mets Post-operative diagnosis: sameProcedures: C2-T2 posterior fusion, C4 & C5 lami, C56 b/l foraminotomiesFindings: moderate compression at C45, well decompressed at b/l C56 foramen Complications: noneEstimated blood loss: 100mLSpecimens: ID Type Source Tests Collected by Time Destination A : Urine URINE, CATHETERIZED URINALYSIS, URINE CULTURE Natalie Ridley MD 04/08/2023 0928 Implants: Implant Name Type Inv. Item Serial No. Mechanical Development Engineer Lot No. LRB No. Used Action [facility] CAN CRS 30MM [facility] FRZDR #1024-12 - [id number] Tissue, Human GRFT BN CANC CRSH 30MM ALGRF FRZDR #1024-12 [id number] [facility] TISSUE SERVICES 11-4817 N/A 1 Implanted GFT BN MAX DMNZ BN MTRX 10CC ALGRF PTTY # - [id number] Tissue, Human GFT BN MAX DMNZ BN MTRX 10CC ALGRF PTTY # [id number] [facility] TISSUE SERVICES 34-3211 N/A 1 Implanted GLOBUS QUARTER 3.5X16MM SCREW; REF #: [id number] N/A [employer] N/A N/A 2 Implanted GLOBUS QUARTER 3.5X12MM SCREW; REF#: [id number] N/A [employer] N/A N/A 7 Implanted GLOBUS QUARTER 5.0X30MM SCREW; REF#: [id number] N/A [employer] N/A N/A 4 Implanted GLOBUS 4.0X110 RESHMA; REF#: [id number] N/A [employer] N/A N/A 2 Implanted GLOBUS LOCKING CAP; REF#: [id number] N/A [employer] N/A N/A 13 Implanted Drains: medium hemovacPatient was extubated and transferred to the PACU without complication in stable condition.Clyde Akers MDNeurosurgery, PGY-6MHolzer Hospital Inquiries, Page [phone] Inquiries, (256-4-YAUWPA) 20850-4Snlybqgc dqtpFE7433-66-93Z30:16:46Prog ress noteTXT1.2.840.718312.1.13.10 4.2.7.2.515787|5556426850WPDn ailable for patient kqkw18002-7EaxbJUJNXEJIOS[address]vdGalvestonGalvestonTXTX[address] 5686972SKMGUAVDVUZEBYUSVFFHHA 1236-83-64T43:16:461.2.840.11 4350.1.72.3.15|1.2.840.798180 .1.13.104.2.7.2.727879_188146 8725 [facility] 2023-04-07 16:41:51 171ugCgtieMZlg2n3aqe 9hiCqqi7J 7fVAS2tojDdAG3QK1h5UxezczlRJF jXzlLk1485-25-96P95:41:51Form atting of this note might be different from the original.Problem: Falls, Risk ofGoal: Absence of fallsOutcome: Progressing as expected Problem: Mobility - ImpairedGoal: Able to achieve maximum mobility levelOutcome: Progressing as expected Problem: Infection RiskGoal: Absence of infectionOutcome: Progressing as expected 22444-5Zinr of care bbwtWS9250-40-92L92:41:56Plan of care noteTXT1.2.840.099384.1.13.10 4.2.7.2.876173|5524858760PUCy ailable for patient zevz25477-2CcyoIKIRQNAJYG90 [address]vdGalvestonGalvestonTXTX[address] 3860595WVYXIPLOPGUZJEUGPRQVKY 7284-80-96L37:41:561.2.840.11 4350.1.72.3.15|1.2.840.409385 .1.13.104.2.7.2.727879_188061 5402 [facility] 2023-04-07 03:58:55 X6d9l5NF58iPwwRfhRqq v1iTGxxVv YDiW4LK6WYqxzL0RXjjKPGvwWp4Aw KuIe6z1247-16-99E83:58:55Form atting of this note might be different from the original.Problem: Discharge PlanningGoal: Adequate for dischargeOutcome: Progressing as expectedGoal: Effective communicationOutcome: Progressing as expected Problem: PainGoal: Control of pain at or below patient's documented comfort goalOutcome: Progressing as expectedGoal: Reduction in pain sensationOutcome: Progressing as expected Problem: Falls, Risk ofGoal: Absence of fallsOutcome: Progressing as expected Problem: Mobility - ImpairedGoal: Able to achieve maximum mobility levelOutcome: Progressing as expected Problem: Procedure RoutineGoal: Absence of post-procedure complicationsOutcome: Progressing as expectedGoal: Knowledge of procedureOutcome: Progressing as expected Problem: Infection RiskGoal: Absence of infectionOutcome: Progressing as expected 53282-2Aamt of care fscwWC8500-83-05X20:58:58Plan of care noteTXT1.2.840.923227.1.13.10 4.2.7.2.603706|7577761117HEMw ailable for patient qlwo21704-4MhdrXJ506637962Sqw kayode Acharya RN[address] 3371520EYAFXXQHEYAEWQGZNAZYDL 4035-21-64D02:58:581.2.840.11 4350.1.72.3.15|1.2.840.893979 .1.13.104.2.7.2.727879_187967 7172 Hilaria Acharya RN [facility] 2023-04-06 08:23:55 TezvCej3IXt0DKpM2u2N 11C3roKP7 uXgmCWrfdmlxGB1OnoLBAo0xN8r31 OB7MTJ2396-60-57C80:23:55Form atting of this note might be different from the original.Problem: Discharge PlanningGoal: Adequate for dischargeOutcome: Progressing as expectedGoal: Effective communicationOutcome: Progressing as expected 41115-2Agua of care dtnaUW4196-54-47Y37:23:58Plan of care noteTXT1.2.840.991488.1.13.10 4.2.7.2.533972|3894403910YVYc ailable for patient yhhc65183-5GdqkFK362092512Pjp a L Gomez RN[address] 3217853YERWHLIOSQEXXWEFTEOFDG 9832-76-15H81:23:581.2.840.11 4350.1.72.3.15|1.2.840.500361 .1.13.104.2.7.2.727879_187891 3584 Ama Vasques RN [facility] 2023-04-06 06:01:40 VVCSsvqAD72hdVYSyuGC I4pJLPNuG HKOxNK2ibDb64NdNH4ciahRGjXVpo 8YhQTr7001-00-70O46:01:40Form atting of this note might be different from the original.Problem: Discharge PlanningGoal: Adequate for dischargeOutcome: Progressing as expectedGoal: Effective communicationOutcome: Progressing as expected Problem: PainGoal: Control of pain at or below patient's documented comfort goalOutcome: Progressing as expectedGoal: Reduction in pain sensationOutcome: Progressing as expected Problem: Falls, Risk ofGoal: Absence of fallsOutcome: Progressing as expected Problem: Mobility - ImpairedGoal: Able to achieve maximum mobility levelOutcome: Progressing as expected 53889-4Rdcr of care ixodEN7496-12-08P98:01:43Plan of care noteTXT1.2.840.631975.1.13.10 4.2.7.2.889511|6246632219IAZn ailable for patient ydfx05004-6XesuWA712876574Ums ryl Clemons RNUT[address]TX[address] 5738149RPJQJBJSSWBOBZIFLYXMXH 4248-04-46V93:01:431.2.840.11 4350.1.72.3.15|1.2.840.455344 .1.13.104.2.7.2.727879_187882 4074 Marya Dial RN [facility] 2023-04-05 09:26:38 AOuowmDtgisDKKXesO5C 9Oe99vMJr B7OIQa8LpKS7hydo0EdjnmCmYxG1/ ih281m5607-34-51R77:26:38Form atting of this note might be different from the original.Problem: Discharge PlanningGoal: Adequate for dischargeOutcome: Progressing as expectedGoal: Effective communicationOutcome: Progressing as expected Problem: PainGoal: Control of pain at or below patient's documented comfort goalOutcome: Progressing as expectedGoal: Reduction in pain sensationOutcome: Progressing as expected Problem: Falls, Risk ofGoal: Absence of fallsOutcome: Progressing as expected Problem: Mobility - ImpairedGoal: Able to achieve maximum mobility levelOutcome: Progressing as expected 82335-3Bouj of care iejcVK7155-56-74Q47:26:43Plan of care noteTXT1.2.840.216558.1.13.10 4.2.7.2.399505|7688511780MCNx ailable for patient vtpe53290-2PrfdOE050286424Cod mariza Iyer RN[address]vdGalvestonGalvestonTXTX[address] 4166096ZMADOQBDRXGVKWOMSICOSI 3438-36-56G21:26:431.2.840.11 4350.1.72.3.15|1.2.840.095416 .1.13.104.2.7.2.727879_187865 5427 Anaya Iyer RN [facility] 2023-04-05 05:26:34 SMxN6u33TFEp/x7mBecW CdnG5yH+F /MLMXGVhlIbAE7znFYhzkFDB5RS9d LZPWJ15826-42-68Z86:26:34Form atting of this note might be different from the original.Problem: Discharge PlanningGoal: Adequate for dischargeOutcome: Progressing as expectedGoal: Effective communicationOutcome: Progressing as expected Problem: PainGoal: Control of pain at or below patient's documented comfort goalOutcome: Progressing as expectedGoal: Reduction in pain sensationOutcome: Progressing as expected Problem: Falls, Risk ofGoal: Absence of fallsOutcome: Progressing as expected Problem: Mobility - ImpairedGoal: Able to achieve maximum mobility levelOutcome: Progressing as expected 47972-8Vnun of care lofaGI6361-64-57C42:26:37Plan of care noteTXT1.2.840.245787.1.13.10 4.2.7.2.172187|[id number] ailable for patient gfcl80364-1DlgcJLNBFOVAJY[address]TX[address] 7694700GJNXNJSIKEHWALUHPKYEQH 2249-92-66X06:26:371.2.840.11 4350.1.72.3.15|1.2.840.267579 .1.13.104.2.7.2.727879_187863 3048 [facility] 2023-04-04 17:25:26 RxejJRMOkjhuVMYJeJHK Jr3ThGQhq AoIvn507JDZlmWs4kkNWJ+FRCq0kA jFTz1G7232-27-32I08:25:26Form atting of this note might be different from the original.Problem: Discharge PlanningGoal: Adequate for dischargeOutcome: Progressing as expectedGoal: Effective communicationOutcome: Progressing as expected Problem: PainGoal: Control of pain at or below patient's documented comfort goalOutcome: Progressing as expectedGoal: Reduction in pain sensationOutcome: Progressing as expected Problem: Falls, Risk ofGoal: Absence of fallsOutcome: Progressing as expected Problem: Mobility - ImpairedGoal: Able to achieve maximum mobility levelOutcome: Progressing as expected 32447-7Mplg of care mcbwBK9761-51-22A30:25:30Plan of care noteTXT1.2.840.479830.1.13.10 4.2.7.2.235624|0045484226LWWg ailable for patient tkml63172-8MwohUJ489611771Bqm gisel Silva [address] 0626794PNWRQTIUZNATQXHKLMHXAF 2185-42-97X07:25:301.2.840.11 4350.1.72.3.15|1.2.840.837331 .1.13.104.2.7.2.727879_[id number] 5830 Henrietta Silva [facility] 2023-04-04 04:53:23 h1VqSH6wzqjbqv7PFv98 NwyEz3qhR EzNP5HaZkgOFoqchzBheh/4R2AUih Fcmpzo7597-09-37A91:53:23Form atting of this note might be different from the original.Problem: Discharge PlanningGoal: Adequate for dischargeOutcome: Progressing as expectedGoal: Effective communicationOutcome: Progressing as expected Problem: PainGoal: Control of pain at or below patient's documented comfort goalOutcome: Progressing as expectedGoal: Reduction in pain sensationOutcome: Progressing as expected Problem: Falls, Risk ofGoal: Absence of fallsOutcome: Progressing as expected Problem: Mobility - ImpairedGoal: Able to achieve maximum mobility levelOutcome: Progressing as expected 10825-5Kvwo of care ccreKE0959-74-15O21:53:26Plan of care noteTXT1.2.840.920676.1.13.10 4.2.7.2.541628|[id number] ailable for patient ikdy71540-6KpuvAUWDUSSMFA[address]TX[address] 6426381EKBIUSXTALCILRXVGUYNTI 4418-62-82K05:53:261.2.840.11 4350.1.72.3.15|1.2.840.113882 .1.13.104.2.7.2.727879_[id number] 9170 [facility] 2023-04-03 08:26:10 eS7JZav9jgJ+qMzDTzYl kYeGNCmWR IUxTgf6klXIeCis6GEv2tVzCxyhiz bW7pIF9416-07-49L81:26:10Form atting of this note might be different from the original.Problem: Discharge PlanningGoal: Adequate for dischargeOutcome: Progressing as expectedGoal: Effective communicationOutcome: Progressing as expected Problem: PainGoal: Control of pain at or below patient's documented comfort goalOutcome: Progressing as expectedGoal: Reduction in pain sensationOutcome: Progressing as expected Problem: Falls, Risk ofGoal: Absence of fallsOutcome: Progressing as expected Problem: Mobility - ImpairedGoal: Able to achieve maximum mobility levelOutcome: Progressing as expected 62217-1Pqsh of care ccxaFL4002-26-32D07:26:15Plan of care noteTXT1.2.840.944343.1.13.10 4.2.7.2.228928|[id number] ailable for patient tjyd09385-4CfttGMHXEBEKBU[address]TX[address] 4246052DZLBSTPPRDSZDXWQMNVDAD 7193-44-45D95:26:151.2.840.11 4350.1.72.3.15|1.2.840.878899 .1.13.104.2.7.2.727879_[id number] 3966 [facility] 2023-04-03 01:42:56 o8fouvQpE8jJcyxxbIFk NvaT9Cmxk O7LXJzXXYNSydCuPOZL+KjqY/Qc85 jNf6la1509-55-98I37:42:56Form atting of this note might be different from the original.Problem: Discharge PlanningGoal: Adequate for dischargeOutcome: Progressing as expectedGoal: Effective communicationOutcome: Progressing as expected Problem: PainGoal: Control of pain at or below patient's documented comfort goalOutcome: Progressing as expectedGoal: Reduction in pain sensationOutcome: Progressing as expected Problem: Falls, Risk ofGoal: Absence of fallsOutcome: Progressing as expected Problem: Mobility - ImpairedGoal: Able to achieve maximum mobility levelOutcome: Progressing as expected 05332-0Nnfs of care cqwoQV2899-45-76U44:43:00Plan of care noteTXT1.2.840.220862.1.13.10 4.2.7.2.198978|8555268583BGRn ailable for patient kefq68364-2UqvbDBBJIGSIFB[address]TX[address] 4238537RCEQFDUJHBMGIONCRYZTBF 9615-75-32A36:43:001.2.840.11 4350.1.72.3.15|1.2.840.584741 .1.13.104.2.7.2.727879_187722 4934 [facility] 2023-04-02 09:12:26 /6dEQisI+AkKphfMR+82 mCfjpsUGy HezFkQ+M/ul3ZzcJEMx0SVm7HLSGC ZMHbOT8904-91-99X19:12:26Form atting of this note might be different from the original.Problem: Discharge PlanningGoal: Adequate for dischargeOutcome: Progressing as expectedGoal: Effective communicationOutcome: Progressing as expected Problem: PainGoal: Control of pain at or below patient's documented comfort goalOutcome: Progressing as expectedGoal: Reduction in pain sensationOutcome: Progressing as expected Problem: Falls, Risk ofGoal: Absence of fallsOutcome: Progressing as expected Problem: Mobility - ImpairedGoal: Able to achieve maximum mobility levelOutcome: Progressing as expected 41580-4Ugpt of care sfolTO3223-31-86F30:12:31Plan of care noteTXT1.2.840.828720.1.13.10 4.2.7.2.847531|[id number] ailable for patient oukv26892-2CiutMFBJQZQHYM[address]TX[address] 0307084XYXQWTGDNBAQXWNRZJAILS 7613-37-78O82:12:311.2.840.11 4350.1.72.3.15|1.2.840.956319 .1.13.104.2.7.2.727879_187660 6420 [facility] 2023-04-02 07:24:04 Ghkb40/dvRrvcqOPc/rI CoHRh/NQ8 8GMJBNFIW9xlm+lMq0RaCSJJYNZUT diovYE7461-63-46I11:24:04Form atting of this note might be different from the original.Problem: Discharge PlanningGoal: Adequate for discharge04/02/2023723 by Nelida Peña RNOutcome: Progressing as expected04/02/2023126 by Nelida Peña RNOutcome: Progressing as expectedGoal: Effective communication04/02/2023723 by Nelida Peña RNOutcome: Progressing as expected04/02/2023126 by Nelida Peña RNOutcome: Progressing as expected Problem: PainGoal: Control of pain at or below patient's documented comfort goal04/02/2023723 by Nelida Peña RNOutcome: Progressing as expected04/02/2023126 by Nelida Peña RNOutcome: Progressing as expectedGoal: Reduction in pain sensation04/02/2023723 by Nelida Peña RNOutcome: Progressing as expected04/02/2023 012 by Nelida Peña RNOutcome: Progressing as expected Problem: Falls, Risk ofGoal: Absence of falls04/02/2023723 by Nelida Peña RNOutcome: Progressing as expected04/02/2023 0127 by Nelida Peña RNOutcome: Progressing as expected Problem: Mobility - ImpairedGoal: Able to achieve maximum mobility level04/02/2023 0724 by Nelida Peña RNOutcome: Progressing as expected04/02/2023 0127 by Nelida Peña RNOutcome: Progressing as expected 08610-3Uaze of care ellmLZ8942-86-17H46:24:09Plan of care noteTXT1.2.840.355752.1.13.10 4.2.7.2.095961|6113510945HNEo ailable for patient dztg28392-8YvdtQORGVZRSFB99 [address]TX[address] 9476653GQGXKUGSMNCNAUKZBEMCWR 1355-37-99C18:24:091.2.840.11 4350.1.72.3.15|1.2.840.754015 .1.13.104.2.7.2.727879_187644 2732 [facility] 2023-04-02 01:27:27 n91N8yW0lOrsxEOgpGYJ BiIAzGJ7O Lyovnv57xsCFOgltd769GzHwkV6B8 TNXfYe6002-15-31K03:27:27Form atting of this note might be different from the original.Problem: Discharge PlanningGoal: Adequate for dischargeOutcome: Progressing as expectedGoal: Effective communicationOutcome: Progressing as expected Problem: PainGoal: Control of pain at or below patient's documented comfort goalOutcome: Progressing as expectedGoal: Reduction in pain sensationOutcome: Progressing as expected Problem: Falls, Risk ofGoal: Absence of fallsOutcome: Progressing as expected Problem: Mobility - ImpairedGoal: Able to achieve maximum mobility levelOutcome: Progressing as expected 10946-3Cctu of care jcvjQE9379-64-36D51:27:29Plan of care noteTXT1.2.840.873642.1.13.10 4.2.7.2.138526|3162411295MIGv ailable for patient poau69423-3UovcXHASKIVBYS99 [address]TX[address] 0118647VCDMBTLXUTWWQGENFDCCVA 5271-37-40E69:27:291.2.840.11 4350.1.72.3.15|1.2.840.522693 .1.13.104.2.7.2.727879_187617 [address] [place] [address] 2023-04-01 00:41:11 nOMlPEmKsarbCQF1/RICHI kht0pzeVJ wGVy9FcykLfIqYunhZ6sjju5wL1mv jYu5nv9189-16-46L66:41:11Form atting of this note might be different from the original.Problem: Discharge PlanningGoal: Adequate for dischargeOutcome: Progressing as expectedGoal: Effective communicationOutcome: Progressing as expected Problem: PainGoal: Control of pain at or below patient's documented comfort goalOutcome: Progressing as expectedGoal: Reduction in pain sensationOutcome: Progressing as expected Problem: Falls, Risk ofGoal: Absence of fallsOutcome: Progressing as expected Problem: Mobility - ImpairedGoal: Able to achieve maximum mobility levelOutcome: Progressing as expected 03859-0Hsmy of care ddtwTQ8065-46-47R85:41:14Plan of care noteTXT1.2.840.446617.1.13.10 4.2.7.2.399582|5343649971GZCz ailable for patient zvcr23709-3UcsyJVNMQYAAOK99 [address] 0715647RLQYNBNGIRMRSNWYDRHVSZ 0320-58-67K30:41:141.2.840.11 4350.1.72.3.15|1.2.840.898995 .1.13.104.2.7.2.727879_187513 9817 [facility] 2023-03-31 14:20:00 isJqCyW9rYsjPkSo9ST8 dRHIELQkz C7sXu83dQJedkEqHzJNOgSfGb9DN2 [facility]/XB5693-25-98O13:20:00Form atting of this note might be different from the original.Date of Procedure: 03/31/23 Faculty Surgeon: Dr. Ridley Resident Surgeon: Dr. Duenas, Dr. Villanueva Preoperative Diagnosis: Pathologic C5 compression fracture with retropulsion, cervical stenosis, metastatic disease of C5 and C6 vertebral bodies Postoperative Diagnosis: Pathologic C5 compression fracture with retropulsion, cervical stenosis, metastatic disease of C5 and C6 vertebral bodies Operation Performed: Anterior cervical corpectomy at C5 and C6 with C4-C7 anterior cervical fusion INDICATIONS FOR THE PROCEDURE HISTORY: Patient is a 78 year old female who presented as a transfer from an outside hospital for neck pain and right arm weakness/numbness starting after a fall in the shower 1 month prior. Imaging of the cervical spine demonstrated a severe pathologic compression fracture of C6 and lytic lesions of the C5 and C6 vertebral bodies concerning for metastatic disease. Given symptoms and imaging findings, patient was offered a C5/6 corpectomy and C4-C7 anterior cervical fusion.SURGICAL RISKS: Patient was well apprised of all objectives, benefits, risks and potential complications of the procedure, including but not limited to: worsening of current status, the possible need for further procedures, the risk of infection, headaches, CSF leak, possible spinal cord injury resulting in paralysis, infection, neck hematoma and hoarseness of voice, injury to major vessels causing hemorrhage, stroke, loss of language function, coma and even . Informed consent was obtained and secured in the chart after Patient voiced understanding of these risks and decided to proceed with the operation. DESCRIPTION OF THE PROCEDURE The patient was transferred to the operating room and continued on antibiotic regimen.ANESTHESIA: The patient was sedated and intubated without difficulty by the anesthesia service. Eyes were taped shut after ointment was applied to prevent corneal abrasion. A Anastacia Hugger was placed over the lower body to maintain control of core body temperature.POSITIONING: The patient was placed in the supine position with a shoulder roll in position and the head slightly extended. All pressure points were carefully padded. OPERATIVE TECHNIQUE The skin was prepped and draped in the standard surgical fashion and the planned incision marked with a marking pen utilizing standard landmarks such as midline and cricoid cartilage. A cross table Xray was undertaken to plan the incision. A transverse neck incision was performed opposite the C5-6 level using a # 10 scalpel blade. The incision was deepened through platysma muscle and the edges undermined using sharp dissection. Hemostasis was obtained utilizing the Bovie electrocautery as well as the bipolar forceps. Further blunt and sharp dissection was carried down in the plane medial to the omohyoid. Blunt dissection was performed medial to the carotid sheath down to the anterior longitudinal ligament in front of the spine. The omohyoid was incised to optimize surgical exposure. The C4-5 disc space was confirmed by placing a marker visualized with fluoroscopy. The longus coli muscle was undermined on either side utilizing bipolar and monopolar cautery all along to expose the uncovertebral joint. Self-retaining retractors were inserted underneath the longus coli musculature. A #11 blade was used to initiate the discectomy at C4/5 after incision of the annulus. The discectomy was further carried out utilizing pituitary rongeurs, Kerrison rongeurs and currettes to widen and clean the disc space. The operating microscope was draped with sterile drapes and brought into the operative field and with microsurgical technique; the discectomy was carried down with a high speed electric drill to the level of the posterior longitudinal ligament and widened laterally to reveal bilateral uncovertebral joints. We then performed discectomies in the same fashion at C5-6 and C6-7. The endplates of C4 and C7 were drilled down. The vertebral bodies of C5 and C6 were partially removed with a large rongeur and the remaining vertebral body was drilled down to the PLL to complete the corpectomy. The PLL was carefully removed piecemeal with kerrisons. Underlying the PLL, tumor was adherent to the dura especially under the C5 vertebral body. The tumor was dissected off as much as safely able without causing a durotomy. After the spinal canal was felt to be adequately decompressed, the endplates were scraped again to promote arthrodesis and a fortify titanium expandable cage (12 mm x 25-37 mm) was inserted. After assuring good fit, the titanium cage was inserted and expanded to desired length. Then, a plate was inserted and 14 mm screws were placed into the C4 and C7 vertebral bodies. An x-ray was then obtained to confirm appropriate position and the screws were locked. The wound was irrigated with antibiotic solution and hemostasis achieved. A medium hemovac drain was left in place and the wound was closed utilizing 2-0 Vicryl suture for the platysma and 3-0 Vicryl suture for the deep dermal layer. The skin was reapproximated with dermabond and dressed with a sterile dressing. The patient was then placed in a cervical collar. Sponge, needle and instrument counts were all accounted for at the end of the case times two. The patient tolerated the procedure well and was transferred to the recovery room in stable condition. Aide Duenas MD PhDNeurosurgery ServiceFor inquiries please page [id number] signed by Natalie Ridley MD at 04/06/2023 11:14 AM CDTAssociated attestation - Natalie Ridley MD - 04/06/2023 11:14 AM CDT I was present and scrubbed in for all critical portions of the procedure. Includes C5 and C6 corpectomies for metastatic tumor causing pathologic fracture. C4-7 anterior discectomies and interbody arthrodesis, C4-7 anterior segmental instrumentation, Placement of expandable titanium corpectomy cage. Use of operating microscope. 42363-8[facility] operation zkmuXU9781931Gvzw, Rishi1.2.840.943995.1.13.104. 2.7.2.075565FboxGueihLT6277-6 :14:42[facility] Surgical operation noteTXT1.2.840.004172.1.13.10 4.2.7.2.603544|[id number] ailable for patient vqmn70026-7FevfPQJNALCLVN[address] WkdcAydvqiiwnPkppadznkGZUI956 4388486QXDJAUWDOADYQWRHPZUBHO 4514-90-77M06:14:421.2.840.11 4350.1.72.3.15|1.2.840.556779 .1.13.104.2.7.2.727879_187816 9193 [facility] 2023-03-31 14:20:00 Qx7aq14DLC23pkKclzzf 1+NKUwtaE p9bW8z2MAHMN1zji1RdXyZKi3Pkt0 Kn2t9B9248-18-55U75:20:00Form atting of this note might be different from the original.BRIEF NEUROSURGERY OPERATIVE NOTEDate of Surgery: 03/31/2023Faculty: Dr. Lemusident(s): Dr. Duenas, Dr. Villanueva Anesthesia Type: GeneralPre-operative diagnosis: Pathologic C5 compression fracture with retropulsion, cervical stenosis, metastatic disease of C5 and C6 vertebral bodiesPost-operative diagnosis: Pathologic C5 compression fracture with retropulsion, cervical stenosis, metastatic disease of C5 and C6 vertebral bodiesProcedures: C5, C6 corpectomies and C4-C7 anterior cervical fusionFindings: Expandable titanium cageComplications: noneEstimated blood loss: 200 mLSpecimens: C5 vertebral body sent for pathologyDrains: medium hemovacPatient was extubated and transferred to the PACU without complicationAide Duenas MD PhDNeurosurgery ServiceFor inquiries please page [id number] signed by Aide Duenas MD at 04/03/2023 6:19 PM VFQ19172-3Lqrluhvp otmaVQ1092-18-34C50:19:28Prog ress noteTXT1.2.840.586445.1.13.10 4.2.7.2.330172|[id number] ailable for patient jcje41135-4SwiyAPSHMGGRHJ[address] OvqqIcwzuxdkhYhqzvypdiMVDP871 2252385AEHWVJREZRAVODEVBDVQVV 9833-87-54W42:19:281.2.840.11 4350.1.72.3.15|1.2.840.100910 .1.13.104.2.7.2.727879_187816 4950 [facility] 2023-03-31 02:26:48 yHJOFziGZLjo3J3eshcI Tx0d0G9yM /sxHLQheVgOwAxY9BblAk0ifrh2 FA5uNY7876-36-73H65:26:48Form atting of this note might be different from the original.Problem: Discharge PlanningGoal: Adequate for dischargeOutcome: Progressing as expectedGoal: Effective communicationOutcome: Progressing as expected Problem: PainGoal: Control of pain at or below patient's documented comfort goalOutcome: Progressing as expectedGoal: Reduction in pain sensationOutcome: Progressing as expected Problem: Falls, Risk ofGoal: Absence of fallsOutcome: Progressing as expected Problem: Mobility - ImpairedGoal: Able to achieve maximum mobility levelOutcome: Progressing as expected 48707-2Oxen of care msfxHB3854-21-37U42:26:50Plan of care noteTXT1.2.840.374298.1.13.10 4.2.7.2.584484|[id number] ailable for patient bksp74896-7HqqgXLYTSMCLBX44 [address]TX[address] 6183745KPTTQAUUHBIDXBPFUUMBYP 5773-68-24B98:26:501.2.840.11 4350.1.72.3.15|1.2.840.650403 .1.13.104.2.7.2.727879_187407 6791 [facility] 2023-03-29 15:34:40 7kgOtV3NrEliisLIDe79 PAz2Qv5Un LhSCTA1guwk+VmXMwMIEwVkHMViu/ vicRYC8468-47-84G92:34:40Form atting of this note might be different from the original.Problem: PainGoal: Control of pain at or below patient's documented comfort goalOutcome: Progressing as expectedGoal: Reduction in pain sensationOutcome: Progressing as expected Problem: Falls, Risk ofGoal: Absence of fallsOutcome: Progressing as expected 13795-7Ixzc of care jegtXD4920-15-08O04:34:44Plan of care noteTXT1.2.840.553492.1.13.10 4.2.7.2.720193|[id number] ailable for patient uzfx83516-8AqtmQEPCBFGIVH99 [address]TX[address] 3732738UOAFVDCEHKYTOVVWBHRBAM 8131-26-21I18:34:441.2.840.11 4350.1.72.3.15|1.2.840.428005 .1.13.104.2.7.2.727879_187316 2959 [facility] 2023-03-29 03:43:20 gVlS+75+Wq/ptqIRBhVx Henry/Rk7o/Marylou 09bDomk6kL788mGLVh0Eb1ElC6960 wveLSB4257-62-72F98:43:20Form atting of this note might be different from the original.Problem: Discharge PlanningGoal: Adequate for dischargeOutcome: Progressing as expectedGoal: Effective communicationOutcome: Progressing as expected Problem: PainGoal: Control of pain at or below patient's documented comfort goalOutcome: Progressing as expectedGoal: Reduction in pain sensationOutcome: Progressing as expected Problem: Falls, Risk ofGoal: Absence of fallsOutcome: Progressing as expected Problem: Mobility - ImpairedGoal: Able to achieve maximum mobility levelOutcome: Progressing as expected 81935-5Znak of care whdeYA9132-07-61X37:43:26Plan of care noteTXT1.2.840.570353.1.13.10 4.2.7.2.005941|2240342410XDLv ailable for patient kpkl47140-0KkjyWVJGNLBEIP99 [address]TXTX[address] 4562009MQPAGVFPFWAECWPQKVWQAU 2317-55-28L05:43:261.2.840.11 4350.1.72.3.15|1.2.840.907388 .1.13.104.2.7.2.727879_187301 7664 [facility]
[2023-09-07 13:23] LABS: Absolute Lymphocytes (CBC) 1.2 K/uL (0.7-4.9); Hematocrit 38.6 % (36.0-45.0); Lymphocytes % 26.5 % (15.3-44.8); MCV 86.1 fL (80-100); MPV 7.3 fL (7.6-11.3); Platelets 158 thou/uL (152-406); RBC Red Blood Cell Count 4.48 M/uL (3.86-4.86)
[2023-09-07 13:44] LABS: Albumin 4.3 g/dL (3.4-5.0); Bilirubin Total 0.5 mg/dL (0.2-1.0); Potassium 3.6 mEq/L (3.5-5.1); Protein, Total 8.4 g/dL (6.4-8.2)
--- NOTE | 2023-09-07 14:39 | RAD REPORT ---
EXAM DESCRIPTION: CT - Abdomen Pelvis W Contrast - 09/07/2023 1:53 pm CLINICAL HISTORY: ABD PAIN COMPARISON: No comparisons TECHNIQUE: Thin cut axial CT imaging of the abdomen and pelvis was performed following intravenous a dministration of 100 mL Isovue 300. Multiplanar reformats were generated and reviewed. All CT scans are performed using dose optimization technique as appropriate and may include automated exposure control or mA/KV adjustment according to patient size. FINDINGS: No suspicious findings in the lung bases. The liver and kidneys demonstrate sub centimeter, difficult to characterize given small size, but sta tistically likely represent small cysts. Adrenal glands, spleen, and pancreas show no suspicious find ings. Gallbladder is moderately distended with layering hyperdense material suggesting sludge. Symmetric renal function is seen with no hydronephrosis or suspicious renal mass. No dilated bowel loops or bowel wall thickening. Moderate to large stool burden in the rectum. Nonspe cific fluid opacification within nondistended distal small bowel loops and within the ascending colon . Multiple calcified fibroids in the uterus. Ovoid cystic structure in the right aspect of the pelvis anteriorly measuring 11.3 x 8.7 cm in greatest dimension, without appreciable solid components, favo red to represent a large right ovarian cyst. No free air, free fluid or inflammatory stranding. No he rnia, mass or bulky lymphadenopathy. The urinary bladder is without significant finding. No suspicious bony findings. IMPRESSION: Nonspecific fluid opacification within distal nondistended small bowel loops and the asc ending colon, findings which may relate to mild enteritis or diarrheal state. Gallbladder is moderately distended with layering hyperdense material suggesting sludge. Please corre late clinically for any gallbladder symptoms. Incidentally noted large cyst measuring up to 11.3 cm in the right aspect of the pelvis, favoring ova catherine or adnexal origin. Gynecologic referral is recommended. Other incidental findings as above.
--- NOTE | 2023-09-07 14:45 | RAD REPORT ---
[facility] CLINICAL HISTORY: dysphagia COMPARISON: Chest Single View dated 03/28/2023; Chest Single View dated 11/18/2022 TECHNIQUE: Portable AP view of the chest. FINDINGS: The lungs are clear. No pneumothorax or effusion. The cardiomediastinal contours are unre markable. IMPRESSION: No acute cardiopulmonary process.
--- NOTE | 2023-09-07 15:30 | ER ---
Nurse's Notes [facility] Name: Madeline Parks Age: 78 yrs Sex: Female : 1945 Arrival Date: 09/07/2023 Time: 12:01 Bed 6 Private MD: Danica Carrero Diagnosis: Poor Appetite;Gallbladder sludge;Pelvic Cyst Presentation: 09/07 12:09 Chief complaint: Patient states: Weight loss of 30lbs 2-3 weeks. "I feel like I am ld1 unable to swallow food, able to drink fluids." Pt on medication for breast cancer. "I feel constipated.". Coronavirus screen: At this time, the client does not indicate any symptoms associated with coronavirus-19. Ebola Screen: No symptoms or risks identified at this time. Initial Sepsis Screen: Does the patient meet any 2 criteria? No. Patient's initial sepsis screen is negative. Does the patient have a suspected source of infection? No. Patient's initial sepsis screen is negative. Risk Assessment: Do you want to hurt yourself or someone else? Patient reports no desire to harm self or others. Onset of symptoms was September 07, 2023. 12:09 Method Of Arrival: Wheelchair ld1 12:09 Acuity: SHAW 3 ld1 Triage Assessment: 12:11 General: Appears in no apparent distress. uncomfortable, Behavior is calm, cooperative, ld1 appropriate for age. Pain: Denies pain. EENT: No signs and/or symptoms were reported regarding the EENT system. Neuro: Level of Consciousness is awake, alert, obeys commands, Oriented to person, place, time, situation. Cardiovascular: Capillary refill < 3 seconds Patient's skin is warm and dry. Respiratory: Airway is patent Respiratory effort is even, unlabored. GI: Abdomen is round non-distended. : No signs and/or symptoms were reported regarding the genitourinary system. Derm: No signs and/or symptoms reported regarding the dermatologic system. Musculoskeletal: No signs and/or symptoms reported regarding the musculoskeletal system. Historical: - Allergies: 12:11 No Known Allergies; ld1 - PMHx: 12:11 Arthritis; diabetes mellitus; Hypercholesterolemia; Hypertensive disorder; Breast ld1 cancer (Hypertensive disorder); - Immunization history:: Adult Immunizations up to date. - Social history:: Smoking status: Patient denies any tobacco usage or history of. Patient/guardian denies using alcohol. Screenin:15 [facility] ED Fall Risk Assessment (Adult) Score/Fall Risk Level 0 - 2 = Low Risk nj1 Oriented to surroundings, Maintained a safe environment, Hourly rounding (assess needs \\T\\ fall precautionary measures) done. Abuse screen: Denies threats or abuse. Denies injuries from another. 13:15 Nutritional screening: No deficits noted. Tuberculosis screening: No symptoms or risk nj1 factors identified. Assessment: 13:15 General: Appears in no apparent distress. uncomfortable, Behavior is calm, cooperative, nj1 appropriate for age. Pain: Complains of pain in "Hemorrhoids". Neuro: Level of Consciousness is awake, alert, obeys commands, Oriented to person, place, time, situation. Neuro: Reports Malaise. Cardiovascular: Patient's skin is warm and dry. Respiratory: Airway is patent Respiratory effort is even, unlabored. 14:15 Reassessment: Patient appears in no apparent distress at this time. No changes from [facility] previously documented assessment. Patient and/or family updated on plan of care and expected duration. Pain level reassessed. Patient is alert, oriented x 3, equal unlabored respirations, skin warm/dry/pink. 15:30 Reassessment: Patient appears in no apparent distress at this time. No changes from [facility] previously documented assessment. Patient and/or family updated on plan of care and expected duration. Pain level reassessed. Patient is alert, oriented x 3, equal unlabored respirations, skin warm/dry/pink. 16:30 Reassessment: Patient appears in no apparent distress at this time. Patient and/or nj1 family updated on plan of care and expected duration. Pain level reassessed. Patient is alert, oriented x 3, equal unlabored respirations, skin warm/dry/pink. Vital Signs: 12:09 BP 122 / 72; Pulse 90; Resp 18; Temp 97.6(TE); Pulse Ox 98% on R/A; Weight 72.57 kg; ld1 Height 5 ft. 5 in. ; Pain 0/10; 13:00 BP 133 / 67; Pulse 79; Resp 18; Pulse Ox 99% on R/A; nj1 14:00 BP 133 / 65; Pulse 80; Resp 18; Pulse Ox 100% on R/A; nj1 15:00 BP 123 / 52; Pulse 79; Resp 18; Pulse Ox 98% on R/A; nj1 16:00 BP 121 / 58; Pulse 74; Resp 17; Pulse Ox 97% on R/A; nj1 16:57 BP 123 / 49; Pulse 73; Resp 16; Pulse Ox 97% on R/A; nj1 12:09 Body Mass Index 26.63 (72.57 kg, 165.1 cm) ld1 12:09 Pain Scale: Adult ld1 ED Course: 12:04 Patient arrived in ED. ec2 12:04 Nicolas Gutierrez MD is Attending Physician. ec2 12:05 Danica Carrero is Private Physician. mr 12:11 Triage completed. ld1 12:11 Arm band placed on right wrist. ld1 12:57 Mary Tony, RN is Primary Nurse. nj1 13:15 Patient has correct armband on for positive identification. Bed in low position. Call nj1 light in reach. Side rails up X 1. Adult w/ patient. Provided Education on: call light, fall precautions. 13:15 Inserted saline lock: 22 gauge in right antecubital area, using aseptic technique. nj1 Blood collected. 13:54 CT Abd/Pelvis - IV Contrast Only In Process Unspecified. EDMS 14:08 CXR XRAY In Process Unspecified. EDMS 16:53 No provider procedures requiring assistance completed. IV discontinued, intact, nj1 bleeding controlled. Administered Medications: 13:15 Drug: NS 0.9% IV 1000 ml IV at 1 bolus Per protocol; 1000 mL bolus Route: IV; Rate: 1 nj1 bolus; Site: right antecubital; 16:57 Follow up: Response: No adverse reaction nj1 Medication: 16:54 VIS not applicable for this client. nj1 Outcome: 15:30 Discharge ordered by MD. ec2 16:53 Discharged to home via wheelchair, with family, nj1 16:53 Condition: stable 16:53 Discharge instructions given to patient, family, Instructed on discharge instructions, follow up and referral plans. medication usage, Demonstrated understanding of instructions, follow-up care, 16:56 Patient left the ED. iw Signatures: Dispatcher [employer] EDOH Avis Christensen, Reg Reg mr Clarita Booth RN RN iw Charline Bauman RN RN ld1 Mary Tony RN RN nj1 Nicolas Gutierrez MD MD ec2 Corrections: (The following items were deleted from the chart) 12:12 12:09 Chief complaint: Patient states: Weight loss of 30lbs 2-3 weeks. "I feel like I ld1 am unable to swallow food, able to drink fluids." Pt on medication for breast cancer. ld1
--- NOTE | 2023-09-07 15:30 | EDPHYS ---
Physician Documentation [facility] Name: Madeline Parks Age: 78 yrs Sex: Female : 1945 Arrival Date: 09/07/2023 Time: 12:01 Bed 6 Private MD: Danica Carrero ED Physician Nicolas Gutierrez HPI: 09/07 12:21 This 78 yrs old Female presents to ER via Wheelchair with complaints of Decreased ec2 Appetite, Weight loss, dehydrated. 12:21 Patient arrives today for evaluation of general weakness, poor p.o. intake. Reports ec2 that she has lost weight over the past several weeks unintentionally. Reports no appetite. Patient reports some general abdominal pain as well as constipation. Reports no vomiting. No urinary complaints. No cough or cold symptoms.. Historical: - Allergies: 12:11 No Known Allergies; ld1 - PMHx: 12:11 Arthritis; diabetes mellitus; Hypercholesterolemia; Hypertensive disorder; Breast ld1 cancer (Hypertensive disorder); - Immunization history:: Adult Immunizations up to date. - Social history:: Smoking status: Patient denies any tobacco usage or history of. Patient/guardian denies using alcohol. ROS: 12:21 Constitutional: as per hpi ec2 Exam: 12:21 Constitutional: GEN: NAD Head: atraumatic Eyes: EOMI Ears: External ears are ec2 normal. CV: regular rate LUNGS: no respiratory distress ABD: non-distended soft, generally tender, no guarding, not rigid SKIN: no evidence of rashes MSK: no evidence of trauma NEURO: moves all extremities equally Vital Signs: 12:09 BP 122 / 72; Pulse 90; Resp 18; Temp 97.6(TE); Pulse Ox 98% on R/A; Weight 72.57 kg; ld1 Height 5 ft. 5 in. ; Pain 0/10; 13:00 BP 133 / 67; Pulse 79; Resp 18; Pulse Ox 99% on R/A; nj1 14:00 BP 133 / 65; Pulse 80; Resp 18; Pulse Ox 100% on R/A; nj1 15:00 BP 123 / 52; Pulse 79; Resp 18; Pulse Ox 98% on R/A; nj1 16:00 BP 121 / 58; Pulse 74; Resp 17; Pulse Ox 97% on R/A; nj1 16:57 BP 123 / 49; Pulse 73; Resp 16; Pulse Ox 97% on R/A; nj1 12:09 Body Mass Index 26.63 (72.57 kg, 165.1 cm) ld1 12:09 Pain Scale: Adult ld1 MDM: 12:08 Patient medically screened. ec2 12:21 Data reviewed: vital signs. ED course: Patient arrives today for poor p.o. intake. ec2 Examination remarkable for abdominal findings as noted above. Will obtain lab work, chest x-ray, CT abdomen pelvis to further assess the patient complaint. Currently evaluated for dehydration, electrolyte disturbances, anemia.. 13:57 ED course: CBC, metabolic profile, lipase, nonactionable. Pending urine studies, CT ec2 imaging. . 15:03 ED course: CT of the abdomen pelvis shows gastroenteritis, possible gallbladder ec2 distention, patient without focal right upper quadrant TTP. Incidental right adnexal cyst noted, will defer workup to gynecology. I updated the patient regarding these findings. . 09/07 12:20 Order name: CBC with Diff; Complete Time: 13:56 ec2 09/07 12:20 Order name: CMP; Complete Time: 13:56 ec2 09/07 12:20 Order name: Lipase; Complete Time: 13:56 ec2 09/07 12:20 Order name: CT Abd/Pelvis - IV Contrast Only; Complete Time: 14:50 ec2 09/07 12:20 Order name: CXR XRAY; Complete Time: 14:50 ec2 09/07 12:20 Order name: IV Saline Lock; Complete Time: 13:22 ec2 09/07 12:20 Order name: Labs collected and sent; Complete Time: 13:22 ec2 Administered Medications: 13:15 Drug: NS 0.9% IV 1000 ml IV at 1 bolus Per protocol; 1000 mL bolus Route: IV; Rate: 1 nj1 bolus; Site: right antecubital; 16:57 Follow up: Response: No adverse reaction nj1 Disposition Summary: 09/07/23 15:30 Discharge Ordered Condition: Stable ec2 Diagnosis - Poor Appetite ec2 - Gallbladder sludge ec2 - Pelvic Cyst ec2 Followup: ec2 - With: Private Physician - When: - Reason: Recheck today's complaints Discharge Instructions: - Discharge Summary Sheet ec2 Forms: - Medication Reconciliation Form ec2 - Thank You Letter ec2 - Antibiotic Education ec2 - Prescription Opioid Use ec2 - Patient Portal Instructions ec2 - Leadership Thank You Letter ec2 Signatures: Dispatcher [employer] Charline Frey RN RN ld1 Mary Tony RN RN nj1 Nicolas Gutierrez MD MD ec2 Corrections: (The following items were deleted from the chart) 13:04 13:03 Patient medically screened. ec2 ec2
[2023-09-07 18:02] VITALS: BP 122/72; TEMP 97.6; O2SAT 98
== END ==
LOC: ER 12:01
DX: R63.0 Anorexia (principal); K82.8 Other specified diseases of gallbladder; N94.89 Other specified conditions associated with female genital organs and menstrual cycle
CPT/HCPCS: 85025; 36415; 83690; 80053; 74177; 71045; 99284; Q9967; J7030

== ENCOUNTER 2023-09-10 22:07 | Inpatient (IN) | payer OTHER ==
--- OUTSIDE RECORDS SUMMARY | 2023-09-10 22:17 | XMS REPORT | Continuity of Care Document ---
Author Name Unknown Address [address] [facility] [address] [place] [id number] [facility] [address] [facility] [address] [place] [address] Care Team Providers Care [employer]zen [employer] Department Manager Name Role Phone Rodolfo Hassan MD Primary Care Physician [phone] Doctor Unassigned, Byron Attending Clinician U Natalie Quick MD Attending Clinician [phone] Sarah Quintana Attending Clinician [phone] Rodolfo Hassan Attending Clinician [phone] [address] CARROLL, David Mckeon Attending Clinician Unavail able NATALIE RIDLEY Attending Clinician Unavailable Betito Nunes MD Attending Clinician [phone] Anesthesiology Attending Clinician Unavailable RADIOLOGY Attending Clinician Unavailable Radiology Attending Clinician Unavailable BETITO NUNES Admitting Clinician Unavailable Betito Nunes MD Admitting Clinician [phone] Payers Payer Name Policy Type Policy Number [...] CONSISTEN T WITH BREAST ORIGIN (SEE COMMENT)? [facility] Type 2 diabetes mellitus without complicati on, with long-term current use of insulin Type 2 diabetes mellitus without complicati on, with long-term current use of insulin Disease Active 03-30 00:00: 00 Overview: Formattin g of this note is different from the original. HGB A1C (%) Date Value 3 5.8 (H) [facility] Primary hypertensi on Primary hypertensi on Disease Active 03-30 00:00: 00 [facility] Gastroesop hageal reflux disease without esophagiti s Gastroesop hageal reflux disease without esophagiti s Disease [facility] 03-30 00:00: 00 [facility] Generalize d OA Generalize d OA Disease [facility] 03-30 00:00: 00 [facility] Adnexal mass Adnexal mass Disease Active 03-30 [...] c disease in the abdomen or pelvis. [facility] Obesity (BMI 35.0-39.9 without comorbidit y) Obesity (BMI 35.0-39.9 without comorbidit y) Disease [facility] 03-30 00:00: 00 [facility] Breast mass, right Breast mass, right Disease [facility] 03-30 00:00: 00 Overview: Formattin g of this note might be different from the original. 03/29/23P artially imaged suspected asymmetry in the medial right breast.Co nsider mammograp hic evaluatio n. There is an associate d prominent rightaxil audelia node. Several borderlin e right mediastin um and bilateral hilarpred ominant lymph nodes are nonspecif ic [facility] Thyroid nodule greater than or equal to [...] at least 2.7 cm in greatestd iameter [facility] Cervical stenosis of spinal canal Cervical stenosis [...] the collapsed C5 vertebral body and the [id number] a, which remains normal in height, is suspiciou s for a pathologi calfractu re in the setting of potential metastati c disease or multiplem yeloma. The current exam was performed without IV contrast. ? [facility] Allergies, Adverse Reactions, Alerts Allergy Name Allergy Type Status Severity Reaction(s) Onset Date Inactive Date Treating Clinician Comments Source NO KNOWN ALLERGIE S Drug Class Active [facility] Social History Social Habit Start Date Stop Date Quantity Comments Source History of tobacco use Cigarette Smoker [facility] of Social function 2023-04-07 00:00:00 2023-04-07 00:00:00 [facility] Tobacco use and exposure 2023-03-29 00:00:00 2023-03-29 00:00:00 Smokeless tobacco non-user [facility] Sex Assigned At 1945 00:00:00 1945 00:00:00 [facility] Smoking Status Start Date Stop Date Source Tobacco smoking consumption unknown [facility] Ex-smoker 2023-03-29 00:00:00 2023-03-29 00:00:00 [facility] Medications Ordered Medication Name Filled Medication Name Start Date Stop Date Current Medication? Ordering Clinician Indication Dosage Frequency Signature (SIG) Comments Components Source acetaminoph en (TYLENOL) tablet 325 mg 04-12 05:00: 00 Yes 325mg 325 mg, Oral, Q6H, First dose (after last modificati on) on Thu04/12/23 at 0000, Until Discontinu ed, Routine [facility] acetaminoph en-codeine (TYLENOL #3) 300-30 mg tablet 1 tablet 04-12 00:09: 13 Yes 1{tbl} 1 tablet, Oral, Q4HPRN, Starting on Thu04/11/23 at 1909, Until Discontinu ed, Routine, Pain (scale 7-10), Pain (scale 4-6) [facility] sodium phosphates (READY-TO-U SE ENEMA) 19-7 gram/118 mL enema 1 Enema 04-11 00:57: 35 Yes 1{enema } 1 Enema, Rectal, PRN, 1 dose, Starting on Thu04/10/23 at 1957, Until Discontinu ed, Routine, Constipati on unresolved by oral medication s [facility] bisacodyL (DULCOLAX) suppository 10 mg 04-10 20:24: 34 Yes 10mg 10 mg, Rectal, QDAILYPRN, Starting on Thu04/10/23 at 1524, Until Discontinu ed, Routine, Constipati on unresolved by oral medication [facility] lactulose (CEPHULAC) solution 30 mL 04-10 01:00: 00 Yes 30mL 30 mL, Oral, BID, First dose (after last modificati on) on Thu04/09/23 at 1999, Until Discontinu ed, Routine [facility] sennosides- docusate sodium (SENOKOT-S) 8.6-50 mg per tablet 1 tablet 04-10 01:00: 00 Yes 1{tbl} 1 tablet, Oral, BID, First dose (after last modificati on) on Thu04/09/23 at 1999, Until Discontinu ed, Routine [facility] polyethylen e glycol 3350 powder 17 g 04-10 01:00: 00 Yes 17g 17 g, Oral, BID, First dose (after last modificati on) on Thu04/09/23 at 1999, Until Discontinu ed, Routine [facility] lactulose (CEPHULAC) solution 30 mL 04-10 01:00: 00 Yes 30mL 30 mL, Oral, BID, First dose (after last modificati on) on Thu04/09/23 at 1999, Until Discontinu ed, Routine [facility] sennosides- docusate sodium (SENOKOT-S) 8.6-50 mg per tablet 1 tablet 04-10 01:00: 00 Yes 1{tbl} 1 tablet, Oral, BID, First dose (after last modificati on) on Thu04/09/23 at 1999, Until Discontinu ed, Routine [facility] polyethylen e glycol 3350 powder 17 g 04-10 01:00: 00 Yes 17g 17 g, Oral, BID, First dose (after last modificati on) on Thu04/09/23 at 1999, Until Discontinu ed, Routine [facility] sulfamethox azole-trime thoprim (BACTRIM DS) 800-160 mg per tablet 1 tablet 04-10 01:00: 00 04-13 00:59 :00 No 1{tbl} 1 tablet, Oral, BID, 6 doses, First dose on Thu04/09/23 at 1999, Last dose on Thu04/12/23 at 0800, LUCIAN
Re ason for Anti-Infec tive: Documented Infection< br>Documen thomas Infection Site: Urine
D uration of Therapy: Other (see Comments) [facility] sulfamethox azole-trime thoprim (BACTRIM DS) 800-160 mg per tablet 1 tablet 04-10 01:00: 00 04-12 13:28 :00 No 1{tbl} 1 tablet, Oral, BID, 6 doses, First dose on Thu04/09/23 at 2000, Last dose on Thu04/12/23 at 0800, LUCIAN
Re ason for Anti-Infec tive: Documented Infection< br>Documen thomas Infection Site: Urine
D uration of Therapy: Other (see Comments) [facility] ketorolac (TORADOL) injection 30 mg 2022-04-09 17:00: 00 04-10 10:59 :00 No 30mg 30 mg, Slow IV Push, Q6H, 3 doses, First dose on Thu04/09/23 at 1200, Last dose on Thu04/10/23 at 0000, Routine [facility] ketorolac (TORADOL) injection 30 mg 04-09 17:00: 00 04-10 10:59 :00 No 30mg 30 mg, Slow IV Push, Q6H, 3 doses, First dose on Thu04/09/23 at 1200, Last dose on Thu04/10/23 at 0000, Routine [facility] ondansetron (ZOFRAN (PF)) injection 4 mg 2022-04-09 14:30: 28 Yes 4mg 4 mg, Slow IV Push, Q6HPRN, Nausea and Vomiting (N/V), Starting on Thu04/09/23 at 0930
Do ses of ondansetro n 16 mg and above need to be administer ed via IV piggyback. For Dose >=24mg ECG monitoring is advisable.
[facility] ondansetron (ZOFRAN (PF)) injection 4 mg 2022-04-09 14:30: 28 Yes 4mg 4 mg, Slow IV Push, Q6HPRN, Nausea and Vomiting (N/V), Starting on Thu04/09/23 at 0930
Do ses of ondansetro n 16 mg and above need to be administer ed via IV piggyback. For Dose >=24mg ECG monitoring is advisable.
[facility] morpHINE (2 mg/mL) injection 2 mg 2022-04-09 14:27: 34 Yes 2mg 2 mg, Slow IV Push, Q2HPRN, Starting on Juanita 04/09/23 at 0927, Until Discontinu ed, Routine, Pain (scale 7-10) [facility] morpHINE (2 mg/mL) injection 2 mg 04-09 14:27: 34 04-12 00:09 :44 No 2mg 2 mg, Slow IV Push, Q2HPRN, Starting on Juanita 04/09/23 at 0927, Until 04/11/23 at 1909, Routine, Pain (scale 7-10) [facility] enoxaparin (LOVENOX) injection 40 mg 04-09 14:00: 00 Yes 40mg 40 mg, Subcutaneo us, Q24H, First dose on Thu04/09/23 at 0900, Until Discontinu ed, Routine [facility] enoxaparin (LOVENOX) injection 40 mg 04-09 14:00: 00 Yes 40mg 40 mg, Subcutaneo us, Q24H, First dose on Thu04/09/23 at 0900, Until Discontinu ed, Routine [facility] docusate (COLACE) 100 mg capsule 04-09 00:00: 00 04-24 04:59 :00 No [id number] 100mg Take 1 capsule by mouth in the morning for 14 days. [facility] methocarbam oL 500 mg tablet 04-09 00:00: 00 04-24 04:59 :00 No [id number] 500mg Take 1 tablet by mouth 4 (four) times daily for 14 days. Indication s: a uncontroll ed muscle contractio n with pain [facility] docusate (COLACE) 100 mg capsule 04-09 00:00: 00 04-24 04:59 :00 No [id number] 100mg Take 1 capsule by mouth in the morning for 14 days. [facility] methocarbam oL 500 mg tablet 04-09 00:00: 00 04-24 04:59 :00 No [id number] 500mg Take 1 tablet by mouth 4 (four) times daily for 14 days. Indication s: a uncontroll ed muscle contractio n with pain [facility] docusate (COLACE) 100 mg capsule 2022-0 824 00:00: 00 04-24 04:59 :00 No [id number] 100mg Take 1 capsule by mouth in the morning for 14 days. [facility] methocarbam oL 500 mg tablet 2022-0 8-24 00:00: 00 04-24 04:59 :00 No [id number] 500mg Take 1 tablet by mouth 4 (four) times daily for 14 days. Indication s: a uncontroll ed muscle contractio n with pain [facility] docusate (COLACE) 100 mg capsule 2022-0 824 00:00: 00 04-24 04:59 :00 No [id number] 100mg Take 1 capsule by mouth in the morning for 14 days. [facility] methocarbam oL 500 mg tablet 2022-0 824 00:00: 00 04-24 04:59 :00 No [id number] 500mg Take 1 tablet by mouth 4 (four) times daily for 14 days. Indication s: a uncontroll ed muscle contractio n with pain [facility] docusate (COLACE) 100 mg capsule 2022-0 824 00:00: 00 04-24 04:59 :00 No [id number] 100mg Take 1 capsule by mouth in the morning for 14 days. [facility] methocarbam oL 500 mg tablet 2022-0 8-24 00:00: 00 04-24 04:59 :00 No [id number] 500mg Take 1 tablet by mouth 4 (four) times daily for 14 days. Indication s: a uncontroll ed muscle contractio n with pain [facility] docusate (COLACE) 100 mg capsule 2022-0 8-24 00:00: 00 04-24 04:59 :00 No [id number] 100mg Take 1 capsule by mouth in the morning for 14 days. [facility] methocarbam oL 500 mg tablet 2022-0 8-24 00:00: 00 04-24 04:59 :00 No [id number] 500mg Take 1 tablet by mouth 4 (four) times daily for 14 days. Indication s: a uncontroll ed muscle contractio n with pain [facility] docusate (COLACE) 100 mg capsule 04-09 00:00: 00 04-24 04:59 :00 No [id number] 100mg Take 1 capsule by mouth in the morning for 14 days. [facility] methocarbam oL 500 mg tablet 04-09 00:00: 00 04-24 04:59 :00 No [id number] 500mg Take 1 tablet by mouth 4 (four) times daily for 14 days. Indication s: a uncontroll ed muscle contractio n with pain [facility] docusate (COLACE) 100 mg capsule 04-09 00:00: 00 04-24 04:59 :00 No [id number] 100mg Take 1 capsule by mouth in the morning for 14 days. [facility] methocarbam oL 500 mg tablet 04-09 00:00: 00 04-24 04:59 :00 No [id number] 500mg Take 1 tablet by mouth 4 (four) times daily for 14 days. Indication s: a uncontroll ed muscle contractio n with pain [facility] HYDROcodone -acetaminop hen 5-325 mg tablet 04-09 00:00: 00 04-17 04:59 :00 No [id number] 1{tbl} Take 1 tablet by mouth every 4 (four) hours as needed for Pain (scale 4-6) or Pain (scale 7-10) for up to 7 days. Indication s: acute pain [facility] HYDROcodone -acetaminop hen 5-325 mg tablet 2022-0 8-24 00:00: 00 04-17 04:59 :00 No [id number] 1{tbl} Take 1 tablet by mouth every 4 (four) hours as needed for Pain (scale 4-6) or Pain (scale 7-10) for up to 7 days. Indication s: acute pain [facility] HYDROcodone -acetaminop hen 5-325 mg tablet 2022- 8-24 00:00: 00 04-17 04:59 :00 No [id number] 1{tbl} Take 1 tablet by mouth every 4 (four) hours as needed for Pain (scale 4-6) or Pain (scale 7-10) for up to 7 days. Indication s: acute pain [facility] acetaminoph en (TYLENOL) tablet 650 mg 04-08 23:00: 00 Yes 650mg 650 mg, Oral, Q6H, First dose on Thu04/08/23 at 1800, Until Discontinu ed, Routine [facility] acetaminoph en (TYLENOL) tablet 650 mg 04-08 23:00: 00 04-12 00:09 :45 No 650mg 650 mg, Oral, Q6H, First dose on Thu04/08/23 at 1800, Until Discontinu ed, Routine [facility] NaCl 0.9% (NS) IV infusion 1,000 mL 04-08 20:45: 00 Yes 1000mL at 42 mL/hr, IV Infusion, CONTINUOUS , Starting on Thu04/08/23 at 1545, Until Discontinu ed, Routine [facility] NaCl 0.9% (NS) IV infusion 1,000 mL 04-08 20:45: 00 Yes 1000mL at 42 mL/hr, IV Infusion, CONTINUOUS , Starting on Thu04/08/23 at 1545, Until Discontinu ed, Routine [facility] ceFAZolin (ANCEF) injection 1,000 mg 04-08 20:45: 00 04-10 20:44 :00 No 1000mg 1,000 mg, Intravenou s, Q8H ABX, 6 doses, First dose on Thu04/08/23 at 1545, Last dose on Thu04/10/23 at 0745
Re ason for Anti-Infec tive: Surgical Prophylaxi s
Surgi miracle Prophylaxi s: Neurosurge ry
Dura tion of therapy: within 24 hours of surgery [facility] ceFAZolin (ANCEF) injection 1,000 mg 04-08 20:45: 00 04-10 15:00 :00 No 1000mg 1,000 mg, Intravenou s, Q8H ABX, 6 doses, First dose on Thu04/08/23 at 1545, Last dose on Thu04/10/23 at 0745
Re ason for Anti-Infec tive: Surgical Prophylaxi s
Surgi miracle Prophylaxi s: Neurosurge ry
Dura tion of therapy: within 24 hours of surgery [facility] morpHINE 30 mg/30 mL (fixed dose) INORGANIC CHEMIST injection 04-08 20:45: 00 04-09 14:28 :56 No Patient Bolus Dose: 1 mg
Lock out Interval: 6 Minutes
Basal Rate: 0 mg/hr
F our Hour Dose Limit: 32 mg
Intr avenous, 30 mL, CONTINUOUS , Starting on Thu04/08/23 at 1545, Until Thu04/09/23 at 0928 [facility] sulfamethox azole-trime thoprim (BACTRIM IV) 400-80 mg/5 [...] Urine
D uration of Therapy: 7 days [facility] FENTanyl PF (SUBLIMAZE (PF)) injection 25 mcg 04-08 19:45: 58 04-08 21:09 :46 No 25ug 25 mcg, Slow IV Push, Q5MIN PRN, 4 doses, Starting on Thu04/08/23 at 1445, Until Thu04/08/23 at 1609, Routine, Pain (scale 4-6), PACU [facility] HYDROmorpho ne (DILAUDID) injection 0.2 mg 04-08 19:45: 58 04-08 20:15 :00 No .2mg 0.2 mg, Slow IV Push, Q5MIN PRN, 3 doses, Starting on Thu04/08/23 at 1445, Until Thu04/08/23 at 1515, Routine, Pain (scale 7-10), PACU
Us e approved by (Faculty): PACU USE -ANESTHESI A SERVICE-HY DROMORPHON E INJECTIONS [facility] oxyCODONE immediate release tablet 5 mg 04-08 19:45: 00 Yes 5mg 5 mg, Oral, Q4HPRN, Starting on Thu04/08/23 at 1445, Until Discontinu ed, Routine, Pain (scale 4-6)
Fa culty member approving Restricted medication : NATALIE RIDLEY [facility] oxyCODONE immediate release tablet 5 mg 04-08 19:45: 00 04-12 00:09 :44 No 5mg 5 mg, Oral, Q4HPRN, Starting on Thu04/08/23 at 1445, Until 04/11/23 at 1909, Routine, Pain (scale 4-6)
Fa culty member approving Restricted medication : NATALIE RIDLEY [facility] naloxone (NARCAN) injection 0.1 mg 04-08 19:38: 32 Yes .1mg 0.1 mg, Slow IV Push, SEE-INSTRU CTIONS, Starting on Thu04/08/23 at 1438, Until Discontinu ed, Routine [facility] naloxone (NARCAN) injection 0.1 mg 04-08 19:38: 32 Yes .1mg 0.1 mg, Slow IV Push, SEE-INSTRU CTIONS, Starting on Thu04/08/23 at 1438, Until Discontinu ed, Routine [facility] bupivacaine (preserv free) (SENSORCAIN E MPF) 0.25 % (2.5 mg/mL) 30 mL, BUPivacaine liposome (PF) (EXPAREL (PF)) 1.3 % (13.3 mg/mL) 20 mg 04-08 18:11: 00 Yes PRN, Starting on Thu04/08/23 at 1311, Intra-op [facility] bupivacaine (preserv free) (SENSORCAIN E MPF) 0.25 % (2.5 mg/mL) 30 mL, BUPivacaine liposome (PF) (EXPAREL (PF)) 1.3 % (13.3 mg/mL) 20 mg 04-08 18:11: 00 Yes PRN, Starting on Thu04/08/23 at 1311, Intra-op [facility] vancomycin (VANCOCIN) injection 04-08 15:52: 00 Yes PRN, Starting on Thu04/08/23 at 1052, Until Discontinu ed, LUCIAN, Intra-op [facility] vancomycin (VANCOCIN) injection 04-08 15:52: 00 Yes PRN, Starting on Thu04/08/23 at 1052, Until Discontinu ed, LUCIAN, Intra-op [facility] thrombin (recombinan t) (RECOTHROM) topical solution 04-08 15:51: 00 Yes PRN, Starting on Thu04/08/23 at 1051, Until Discontinu ed, Routine, [facility] thrombin (recombinan t) (RECOTHROM) topical solution 04-08 15:51: 00 Yes PRN, Starting on Thu04/08/23 at 1051, Until Discontinu ed, Routine, Intra-op [facility] lidocaine-e pinephrine (XYLOCAINE WITH EPINEPHRINE ) 0.5 %-1:200,000 injection 04-08 15:20: 00 Yes PRN, Starting on Thu04/08/23 at 1020, Until Discontinu ed, Routine, Intra-op [facility] lidocaine-e pinephrine (XYLOCAINE WITH EPINEPHRINE ) 0.5 %-1:200,000 injection 04-08 15:20: 00 Yes PRN, Starting on Thu04/08/23 at 1020, Until Discontinu ed, Routine, Intra-op [facility] sodium phosphates (READY-TO-U SE ENEMA) 19-7 gram/118 mL enema 1 Enema 04-07 18:45: 00 04-07 23:37 :00 No 1{enema } 1 Enema, Rectal, ONCE, 1 dose, On Thu04/07/23 at 1345, Routine [facility] lactulose (CEPHULAC) solution 30 mL 04-06 20:45: 00 04-09 16:47 :56 No 30mL 30 mL, Oral, DAILY, First dose on Thu04/06/23 at 1545, Until Discontinu ed, Routine [facility] magnesium hydroxide (MILK OF MAGNESIA) 400 mg/5 mL suspension 30 mL 04-03 18:45: 00 Yes 30mL 30 mL, Oral, DAILY, First dose on Thu04/03/23 at 1345, Until Discontinu ed, Routine [facility] polyethylen e glycol 3350 powder 17 g 04-03 18:45: 00 Yes 17g 17 g, Oral, DAILY, First dose on Thu04/03/23 at 1345, Until Discontinu ed, Routine [facility] magnesium hydroxide (MILK OF MAGNESIA) 400 mg/5 mL suspension 30 mL 04-03 18:45: 00 Yes 30mL 30 mL, Oral, DAILY, First dose on Thu04/03/23 at 1345, Until Discontinu ed, Routine [facility] magnesium hydroxide (MILK OF MAGNESIA) 400 mg/5 mL suspension 30 mL 04-03 18:45: 00 Yes 30mL 30 mL, Oral, DAILY, First dose on Thu04/03/23 at 1345, Until Discontinu ed, Routine [facility] polyethylen e glycol 3350 powder 17 g 04-03 18:45: 00 04-09 16:47 :56 No 17g 17 g, Oral, DAILY, First dose on Thu04/03/23 at 1345, Until Discontinu ed, Routine [facility] HYDROcodone -acetaminop hen (NORCO 5) 5-325 mg tablet 1 tablet 04-03 16:45: 00 04-03 16:53 :00 No 1{tbl} 1 tablet, Oral, ONCE, 1 dose, On Thu04/03/23 at 1145, Routine, PACU [facility] gadoteridol (PROHANCE-2 0 mL) injection 18.06 mL 04-03 16:00: 00 04-03 16:03 :00 No [id number] .2mL/kg 18.06 mL (0.2 mL/kg ?90.3 kg), Intravenou s, ONCE, 1 dose, On Thu04/03/23 at 1100, Routine [facility] sennosides- docusate sodium (SENOKOT-S) 8.6-50 mg per tablet 1 tablet 04-03 14:00: 00 Yes 1{tbl} 1 tablet, Oral, DAILY, First dose on Thu04/03/23 at 0900, Until Discontinu ed, Routine [facility] sennosides- docusate sodium (SENOKOT-S) 8.6-50 mg per tablet 1 tablet 04-03 14:00: 00 04-09 16:47 :55 No 1{tbl} 1 tablet, Oral, DAILY, First dose on Thu04/03/23 at 0900, Until Discontinu ed, Routine [facility] ceFAZolin (ANCEF) 1,000 mg in NaCl 0.9% (NS) 100 mL MINI-BAG 04-02 20:15: 00 04-02 21:42 :00 No 1000mg 1,000 mg, Intravenou s, Q8H ABX, 1 dose, First dose on Thu04/02/23 at 1515, Administer over 30 Minutes, 100 mL
Reas on for Anti-Infec tive: Surgical Prophylaxi s
Surgi miracle Prophylaxi s: Neurosurge ry
Dura tion of therapy: within 24 hours of surgery [facility] enoxaparin (LOVENOX) injection 40 mg 04-02 01:00: 00 Yes 40mg 40 mg, Subcutaneo us, Q24H, First dose on Thu04/01/23 at 2000, Until Discontinu ed, Routine [facility] enoxaparin (LOVENOX) injection 40 mg 04-02 01:00: 00 04-07 14:08 :24 No 40mg 40 mg, Subcutaneo us, Q24H, First dose on Thu04/01/23 at 2000, Until Discontinu ed, Routine [facility] acetaminoph en ADULT (IRMEV) injection 1,000 mg 04-01 11:00: 00 04-01 18:34 :00 No 1000mg 1,000 mg, IV Infusion, at 400 mL/hr Administer over 15 Minutes, Q8H, 2 doses, First dose (after last modificati on) on Thu04/01/23 at 0600, Last dose on Thu04/01/23 at 1400, Routine
Indicatio n: Non-periop erative Patient
Approved by: Per Policy (NPO Status) [facility] dexamethaso ne (DECADRON PHOSPHATE) injection 4 mg 03-31 23:00: 00 04-01 18:15 :00 No 4mg 4 mg, Intravenou s, Q6H, 4 doses, First dose on Thu03/31/23 at 1800, Last dose on Thu04/01/23 at 1200, 1 mL [facility] acetaminoph en ADULT ([facility] injection 1,000 mg 03-31 23:00: 00 04-01 05:46 :34 No 1000mg 1,000 mg, IV Infusion, at 400 mL/hr Administer over 15 Minutes, Q6H, 4 doses, First dose on Thu03/31/23 at 1800, Last dose on Thu04/01/23 at 1200, Routine
Indicatio n: Non-periop erative Patient
Approved by: Per Policy (NPO Status) [facility] HYDROcodone -acetaminop hen (NORCO 5) 5-325 mg tablet 1 tablet 03-31 22:30: 00 03-31 22:38 :00 No 1{tbl} 1 tablet, Oral, ONCE, 1 dose, On Thu03/31/23 at 1730, Routine, PACU [facility] morpHINE (2 mg/mL) injection 2 mg 03-31 22:15: 00 Yes 2mg 2 mg, Slow IV Push, Q3HPRN, Starting on Thu03/31/23 at 1715, Until Discontinu ed, Routine, Pain (scale 7-10) [facility] morpHINE (2 mg/mL) injection 2 mg 2022-03-31 22:15: 00 Yes 2mg 2 mg, Slow IV Push, Q3HPRN, Starting on Thu03/31/23 at 1715, Until Discontinu ed, Routine, Pain (scale 7-10) [facility] morpHINE (2 mg/mL) injection 2 mg 03-31 22:15: 00 04-09 14:29 :59 No 2mg 2 mg, Slow IV Push, Q3HPRN, Starting on Thu03/31/23 at 1715, Until Juanita 04/09/23 at 0929, Routine, Pain (scale 7-10) [facility] oxyCODONE immediate release tablet 5 mg 03-31 22:10: 32 Yes 5mg 5 mg, Oral, Q6HPRN, Starting on Thu03/31/23 at 1710, Until Discontinu ed, Routine, Pain (scale 4-6)
Fa culty member approving Restricted medication : NATALIE RIDLEY [facility] oxyCODONE immediate release tablet 5 mg 03-31 22:10: 32 Yes 5mg 5 mg, Oral, Q6HPRN, Starting on Thu03/31/23 at 1710, Until Discontinu ed, Routine, Pain (scale 4-6)
Fa culty member approving Restricted medication : NATALIE RIDLEY [facility] oxyCODONE immediate release tablet 5 mg 03-31 22:10: 32 04-08 19:39 :53 No 5mg 5 mg, Oral, Q6HPRN, Starting on Thu03/31/23 at 1710, Until Thu04/08/23 at 1439, Routine, Pain (scale 4-6)
Fa culty member approving Restricted medication : NATALIE RIDLEY [facility] phenoL (SORE THROAT (PHENOL)) 1.4 % spray bottle 1 Melvin 03-31 22:05: 55 Yes 1{spray } 1 Melvin, Oral, PRN, Starting on Thu03/31/23 at 1705, Until Discontinu ed, Routine, Sore throat [facility] phenoL (SORE THROAT (PHENOL)) 1.4 % spray bottle 1 Melvin 03-31 22:05: 55 Yes 1{spray } 1 Melvin, Oral, PRN, Starting on Thu03/31/23 at 1705, Until Discontinu ed, Routine, Sore throat [facility] phenoL (SORE THROAT (PHENOL)) 1.4 % spray bottle 1 Melvin 03-31 22:05: 55 Yes 1{spray } 1 Melvin, Oral, PRN, Starting on Thu03/31/23 at 1705, Until Discontinu ed, Routine, Sore throat [facility] phenoL (SORE THROAT (PHENOL)) 1.4 % spray bottle 1 Melvin 03-31 22:05: 55 Yes 1{spray } 1 Melvin, Oral, PRN, Starting on Thu03/31/23 at 1705, Until Discontinu ed, Routine, Sore throat [facility] vancomycin (VANCOCIN) 1 g in sodium chloride 0.9 % irrigation 03-31 21:19: 00 Yes PRN, Starting on Thu03/31/23 at 1619, Until Discontinu ed, 1,000 mL, Intra-op [facility] vancomycin (VANCOCIN) 1 g in sodium chloride 0.9 % irrigation 03-31 21:19: 00 Yes PRN, Starting on Thu03/31/23 at 1619, Until Discontinu ed, 1,000 mL, Intra-op [facility] vancomycin (VANCOCIN) 1 g in sodium chloride 0.9 % irrigation 03-31 21:19: 00 Yes PRN, Starting on Thu03/31/23 at 1619, Until Discontinu ed, 1,000 mL, Intra-op [facility] vancomycin (VANCOCIN) 1 g in sodium chloride 0.9 % irrigation 03-31 21:19: 00 Yes PRN, Starting on Thu03/31/23 at 1619, Until Discontinu ed, 1,000 mL, Intra-op [facility] lidocaine-e pinephrine (XYLOCAINE WITH EPINEPHRINE ) 0.5 %-1:200,000 injection 03-31 19:19: 00 Yes PRN, Starting on Thu03/31/23 at 1419, Until Discontinu ed, Routine, Intra-op [facility] lidocaine-e pinephrine (XYLOCAINE WITH EPINEPHRINE ) 0.5 %-1:200,000 injection 03-31 19:19: 00 Yes PRN, Starting on Thu03/31/23 at 1419, Until Discontinu ed, Routine, Intra-op [facility] lidocaine-e pinephrine (XYLOCAINE WITH EPINEPHRINE ) 0.5 %-1:200,000 injection 03-31 19:19: 00 Yes PRN, Starting on Thu03/31/23 at 1419, Until Discontinu ed, Routine, Intra-op [facility] lidocaine-e pinephrine (XYLOCAINE WITH EPINEPHRINE ) 0.5 %-1:200,000 injection 03-31 19:19: 00 Yes PRN, Starting on Thu03/31/23 at 1419, Until Discontinu ed, Routine, Intra-op [facility] thrombin (recombinan t) (RECOTHROM) topical solution 03-31 19:15: 00 Yes PRN, Starting on Thu03/31/23 at 1415, Until Discontinu ed, Routine, Intra-op [facility] thrombin (recombinan t) (RECOTHROM) topical solution 03-31 19:15: 00 Yes PRN, Starting on Thu03/31/23 at 1415, Until Discontinu ed, Routine, Intra-op [facility] thrombin (recombinan t) (RECOTHROM) topical solution 03-31 19:15: 00 Yes PRN, Starting on Thu03/31/23 at 1415, Until Discontinu ed, Routine, Intra-op [facility] thrombin (recombinan t) (RECOTHROM) topical solution 03-31 19:15: 00 Yes PRN, Starting on Thu03/31/23 at 1415, Until Discontinu ed, Routine, Intra-op [facility] amLODIPine (NORVASC) tablet 5 mg 2022-0 03-30 14:00: 00 Yes 5mg 5 mg, Oral, DAILY, First dose on Thu03/30/23 at 0900, Until Discontinu ed, Routine [facility] omeprazole (PRILOSEC) capsule 20 mg 2022-0 03-30 14:00: 00 Yes 20mg 20 mg, Oral, DAILY, First dose on Thu03/30/23 at 0900, Until Discontinu ed, [facility]ine [facility] tolterodine LA (DETROL LA) 24 hr capsule 2 mg 2022-0 03-30 14:00: 00 Yes 2mg 2 mg, Oral, DAILY, First dose on Thu03/30/23 at 0900, Until Discontinu ed, Routine [facility] losartan (COZAAR) tablet 50 mg 2022-0 03-30 14:00: 00 Yes 50mg 50 mg, Oral, DAILY, First dose on Thu03/30/23 at 0900, Until Discontinu ed, Routine [facility] amLODIPine (NORVASC) tablet 5 mg 2022-0 03-30 14:00: 00 Yes 5mg 5 mg, Oral, DAILY, First dose on Thu03/30/23 at 0900, Until Discontinu ed, Routine [facility] omeprazole (PRILOSEC) capsule 20 mg 2022-0 03-30 14:00: 00 Yes 20mg 20 mg, Oral, DAILY, First dose on Thu03/30/23 at 0900, Until Discontinu ed, Routine [facility] tolterodine LA (DETROL LA) 24 hr capsule 2 mg 2022-0 03-30 14:00: 00 Yes 2mg 2 mg, Oral, DAILY, First dose on Thu03/30/23 at 0900, Until Discontinu ed, Routine [facility] losartan (COZAAR) tablet 50 mg 2022-0 03-30 14:00: 00 Yes 50mg 50 mg, Oral, DAILY, First dose on Thu03/30/23 at 0900, Until Discontinu ed, Routine [facility] amLODIPine (NORVASC) tablet 5 mg 2022-0 03-30 14:00: 00 Yes 5mg 5 mg, Oral, DAILY, First dose on Thu03/30/23 at 0900, Until Discontinu ed, Routine [facility] omeprazole (PRILOSEC) capsule 20 mg 2022-0 03-30 14:00: 00 Yes 20mg 20 mg, Oral, DAILY, First dose on Thu03/30/23 at 0900, Until Discontinu ed, Routine [facility] tolterodine LA (DETROL LA) 24 hr capsule 2 mg 2022-0 03-30 14:00: 00 Yes 2mg 2 mg, Oral, DAILY, First dose on Thu03/30/23 at 0900, Until Discontinu ed, Routine [facility] losartan (COZAAR) tablet 50 mg 03-30 14:00: 00 Yes 50mg 50 mg, Oral, DAILY, First dose on Thu03/30/23 at 0900, Until Discontinu ed, Routine [facility] amLODIPine (NORVASC) tablet 5 mg 0 03-30 14:00: 00 Yes 5mg 5 mg, Oral, DAILY, First dose on Thu03/30/23 at 0900, Until Discontinu ed, Routine [facility] omeprazole (PRILOSEC) capsule 20 mg 0 03-30 14:00: 00 Yes 20mg 20 mg, Oral, DAILY, First dose on Thu03/30/23 at 0900, Until Discontinu ed, Routine [facility] tolterodine LA (DETROL LA) 24 hr capsule 2 mg 03-30 14:00: 00 Yes 2mg 2 mg, Oral, DAILY, First dose on Thu03/30/23 at 0900, Until Discontinu ed, Routine [facility] losartan (COZAAR) tablet 50 mg 2022-03-30 14:00: 00 Yes 50mg 50 mg, Oral, DAILY, First dose on Thu03/30/23 at 0900, Until Discontinu ed, Routine [facility] insulin glargine (LANTUS U-100) injection 60 Units 03-30 02:00: 00 Yes 60U 60 Units, Subcutaneo us, QHS, First dose on 03/29/23 at 2100, Until Discontinu ed, Routine [facility] insulin glargine (LANTUS U-100) injection 60 Units 2022-0 03-30 02:00: 00 Yes 60U 60 Units, Subcutaneo us, QHS, First dose on 03/29/23 at 2100, Until Discontinu ed, Routine [facility] insulin glargine (LANTUS U-100) injection 60 Units 0 03-30 02:00: 00 Yes 60U 60 Units, Subcutaneo us, QHS, First dose on 03/29/23 at 2100, Until Discontinu ed, Routine [facility] insulin glargine (LANTUS U-100) injection 60 Units 0 03-30 02:00: 00 Yes 60U 60 Units, Subcutaneo us, QHS, First dose on 03/29/23 at 2100, Until Discontinu ed, Routine [facility] docusate (COLACE) capsule 100 mg 0 03-29 14:00: 00 Yes 100mg 100 mg, Oral, DAILY, First dose on 03/29/23 at 0900, Until Discontinu ed, Routine [facility] docusate (COLACE) capsule 100 mg 0 03-29 14:00: 00 Yes 100mg 100 mg, Oral, DAILY, First dose on 03/29/23 at 0900, Until Discontinu ed, Routine [facility] docusate (COLACE) capsule 100 mg 0 03-29 14:00: 00 Yes 100mg 100 mg, Oral, DAILY, First dose on 03/29/23 at 0900, Until Discontinu ed, Routine [facility] docusate (COLACE) capsule 100 mg 2022-0 03-29 14:00: 00 Yes 100mg 100 mg, Oral, DAILY, First dose on 03/29/23 at 0900, Until Discontinu ed, Routine [facility] enoxaparin (LOVENOX) injection 40 mg 03-29 14:00: 00 03-30 23:23 :45 No 40mg 40 mg, Subcutaneo us, DAILY, First dose on 03/29/23 at 0900, Until Discontinu ed, Routine [facility] pantoprazol e (PROTONIX) EC tablet 40 mg 03-29 14:00: 00 03-29 21:08 :41 No 40mg 40 mg, Oral, DAILY, First dose on 03/29/23 at 0900, Until Discontinu ed, Routine [facility] Sliding Scale Insulin - Lispro (HumaLOG) 03-29 13:00: 00 Yes Subcutaneo us, TID MEALS+HS, First dose on 03/29/23 at 0800, Until Discontinu ed, Routine [facility] Sliding Scale Insulin - Lispro (HumaLOG) 03-29 13:00: 00 Yes Subcutaneo us, TID MEALS+HS, First dose on 03/29/23 at 0800, Until Discontinu ed, Routine [facility] Sliding Scale Insulin - Lispro (HumaLOG) 03-29 13:00: 00 Yes Subcutaneo us, TID MEALS+HS, First dose on 03/29/23 at 0800, Until Discontinu ed, Routine [facility] Sliding Scale Insulin - Lispro (HumaLOG) 03-29 13:00: 00 Yes Subcutaneo us, TID MEALS+HS, First dose on 03/29/23 at 0800, Until Discontinu ed, Routine [facility] iopamidol (ISOVUE 370-500 mL) injection 80 mL 03-29 08:57: 00 03-29 09:15 :00 No [id number] 80mL 80 mL, Intravenou s, ONCE, 1 dose, On 03/29/23 at 0415, Routine [facility] cyclobenzap rine (FLEXERIL) tablet 5 mg 03-29 04:30: 00 Yes 5mg 5 mg, Oral, TID, First dose on 03/28/23 at 2330, Until Discontinu ed, Routine [facility] cyclobenzap rine (FLEXERIL) tablet 5 mg 03-29 04:30: 00 Yes 5mg 5 mg, Oral, TID, First dose on 03/28/23 at 2330, Until Discontinu ed, Routine [facility] cyclobenzap rine (FLEXERIL) tablet 5 mg 03-29 04:30: 00 Yes 5mg 5 mg, Oral, TID, First dose on 03/28/23 at 2330, Until Discontinu ed, Routine [facility] cyclobenzap rine (FLEXERIL) tablet 5 mg 03-29 04:30: 00 Yes 5mg 5 mg, Oral, TID, First dose on 03/28/23 at 2330, Until Discontinu ed, Routine [facility] glucagon (GLUCAGEN DIAGNOSTIC KIT) injection 1 mg 03-29 04:21: 15 Yes 1mg 1 mg, Intramuscu lar, PRN, Starting on 03/28/23 at 2321, Until Discontinu ed, LUCIAN, Blood Glucose < or = 70 mg/dL and patient is NPO, unable to swallow or has mental changes. [facility] dextrose 50 % in water (D50W) injection 25 mL 03-29 04:21: 15 Yes 25mL 25 mL, Slow IV Push, PRN, Starting on 03/28/23 at 2321, Until Discontinu ed, LUCIAN, Blood Glucose < or = 70 mg/dL and patient is NPO, unable to swallow or has mental status changes. [facility] glucagon (GLUCAGEN DIAGNOSTIC KIT) injection 1 mg 03-29 04:21: 15 Yes 1mg 1 mg, Intramuscu lar, PRN, Starting on 03/28/23 at 2321, Until Discontinu ed, LUCIAN, Blood Glucose < or = 70 mg/dL and patient is NPO, unable to swallow or has mental changes. [facility] dextrose 50 % in water (D50W) injection 25 mL 03-29 04:21: 15 Yes 25mL 25 mL, Slow IV Push, PRN, Starting on 03/28/23 at 2321, Until Discontinu ed, LUCIAN, Blood Glucose < or = 70 mg/dL and patient is NPO, unable to swallow or has mental status changes. [facility] glucagon (GLUCAGEN DIAGNOSTIC KIT) injection 1 mg 03-29 04:21: 15 Yes 1mg 1 mg, Intramuscu lar, PRN, Starting on 03/28/23 at 2321, Until Discontinu ed, LUCIAN, Blood Glucose < or = 70 mg/dL and patient is NPO, unable to swallow or has mental changes. [facility] dextrose 50 % in water (D50W) injection 25 mL 03-29 04:21: 15 Yes 25mL 25 mL, Slow IV Push, PRN, Starting on 03/28/23 at 2321, Until Discontinu ed, LUCIAN, Blood Glucose < or = 70 mg/dL and patient is NPO, unable to swallow or has mental status changes. [facility] glucagon (GLUCAGEN DIAGNOSTIC KIT) injection 1 mg 03-29 04:21: 15 Yes 1mg 1 mg, Intramuscu lar, PRN, Starting on 03/28/23 at 2321, Until Discontinu ed, LUCIAN, Blood Glucose < or = 70 mg/dL and patient is NPO, unable to swallow or has mental changes. [facility] dextrose 50 % in water (D50W) injection 25 mL 03-29 04:21: 15 Yes 25mL 25 mL, Slow IV Push, PRN, Starting on 03/28/23 at 2321, Until Discontinu ed, LUCIAN, Blood Glucose < or = 70 mg/dL and patient is NPO, unable to swallow or has mental status changes. [facility] labetaloL (NORMODYNE) injection 20 mg 03-29 04:21: 11 Yes 20mg 20 mg, Slow IV Push, Q15MIN PRN, Starting on 03/28/23 at 2321, Until Discontinu ed, Routine, Hyertensio n: BP parameters SBP > 160, HOLD for HR < 70 [facility] hydralAZINE (APRESOLINE ) injection 10 mg 03-29 04:21: 11 Yes 10mg 10 mg, Slow IV Push, Q2HPRN, Starting on 03/28/23 at 2321, Until Discontinu ed, Routine, DBP=>100; SBP=>160 [facility] labetaloL (NORMODYNE) injection 20 mg 3-0 03-29 04:21: 11 Yes 20mg 20 mg, Slow IV Push, Q15MIN PRN, Starting on 03/28/23 at 2321, Until Discontinu ed, Routine, Hyertensio n: BP parameters SBP > 160, HOLD for HR < 70 [facility] hydralAZINE (APRESOLINE ) injection 10 mg 2022-0 03-29 04:21: 11 Yes 10mg 10 mg, Slow IV Push, Q2HPRN, Starting on 03/28/23 at 2321, Until Discontinu ed, Routine, DBP=>100; SBP=>160 [facility] labetaloL (NORMODYNE) injection 20 mg 2022-0 03-29 04:21: 11 Yes 20mg 20 mg, Slow IV Push, Q15MIN PRN, Starting on 03/28/23 at 2321, Until Discontinu ed, Routine, Hyertensio n: BP parameters SBP > 160, HOLD for HR < 70 [facility] hydralAZINE (APRESOLINE ) injection 10 mg 2022-0 03-29 04:21: 11 Yes 10mg 10 mg, Slow IV Push, Q2HPRN, Starting on 03/28/23 at 2321, Until Discontinu ed, Routine, DBP=>100; SBP=>160 [facility] labetaloL (NORMODYNE) injection 20 mg 2022-0 03-29 04:21: 11 Yes 20mg 20 mg, Slow IV Push, Q15MIN PRN, Starting on 03/28/23 at 2321, Until Discontinu ed, Routine, Hyertensio n: BP parameters SBP > 160, HOLD for HR < 70 [facility] hydralAZINE (APRESOLINE ) injection 10 mg 2022-0 03-29 04:21: 11 Yes 10mg 10 mg, Slow IV Push, Q2HPRN, Starting on 03/28/23 at 2321, Until Discontinu ed, Routine, DBP=>100; SBP=>160 [facility] morpHINE (2 mg/mL) injection 2 mg 03-29 04:21: 04 03-31 22:14 :59 No 2mg 2 mg, Slow IV Push, Q2HPRN, Starting on Thu03/28/23 at 2321, Until Thu03/31/23 at 1714, Routine, Pain (scale 7-10) [facility] acetaminoph en (TYLENOL) tablet 650 mg 03-29 04:20: 53 03-31 22:14 :59 No 650mg 650 mg, Oral, Q6HPRN, Starting on Thu03/28/23 at 2320, Until Thu03/31/23 at 1714, Routine, Pain (scale 4-6), Pain (scale 1-3), Temp > 38 C [facility] ondansetron (ZOFRAN (PF)) injection 4 mg 03-29 04:16: 35 Yes 4mg 4 mg, Slow IV Push, Q6HPRN, Starting on 03/28/23 at 2316, Until Discontinu ed, Routine, Nausea and Vomiting (N/V) [facility] polyethylen e glycol 3350 powder 17 g 03-29 04:16: 35 Yes 17g 17 g, Oral, PRN - SEE INSTRUCTIO NS, Starting on 03/28/23 at 2316, Until Discontinu ed, Routine, Constipati on [facility] ondansetron (ZOFRAN (PF)) injection 4 mg 03-29 04:16: 35 Yes 4mg 4 mg, Slow IV Push, Q6HPRN, Starting on 03/28/23 at 2316, Until Discontinu ed, Routine, Nausea and Vomiting (N/V) [facility] polyethylen e glycol 3350 powder 17 g 03-29 04:16: 35 04-03 18:43 :37 No 17g 17 g, Oral, PRN - SEE INSTRUCTIO NS, Starting on 8/12/23 at 2316, Until Thu04/03/23 at 1343, Routine, Constipati on [facility] acetaminoph en-codeine 300-60 mg tablet 8 00:00: 00 Yes [facility] acetaminoph en-codeine 300-60 mg tablet 0 03-18 00:00: 00 Yes [facility] acetaminoph en-codeine 300-60 mg tablet 03-18 00:00: 00 04-09 00:00 :00 No [facility] acetaminoph en-codeine 300-60 mg tablet 03-18 00:00: 00 04-09 00:00 :00 No [facility] tolterodine LA 2 mg 24 hr capsule 0 03-12 00:00: 00 Yes [facility] traMADoL 50 mg tablet 0 03-12 00:00: 00 Yes [facility] meloxicam 7.5 mg tablet 0 03-12 00:00: 00 Yes [facility] tolterodine LA 2 mg 24 hr capsule 0 03-12 00:00: 00 Yes [facility] traMADoL 50 mg tablet 0 03-12 00:00: 00 Yes [facility] meloxicam 7.5 mg tablet 0 03-12 00:00: 00 Yes [facility] tolterodine LA 2 mg 24 hr capsule 0 03-12 00:00: 00 Yes [facility] traMADoL 50 mg tablet 0 03-12 00:00: 00 Yes [facility] meloxicam 7.5 mg tablet 0 03-12 00:00: 00 Yes [facility] tolterodine LA 2 mg 24 hr capsule 0 03-12 00:00: 00 Yes [facility] meloxicam 7.5 mg tablet 0 03-12 00:00: 00 Yes [facility] tolterodine LA 2 mg 24 hr [...] 00:00: 00 Yes [facility] amLODIPine 5 mg tablet 2022-0 -10 00:00: 00 Yes [facility] amLODIPine 5 mg tablet 2022-0 -10 00:00: 00 Yes [facility] amLODIPine 5 mg tablet 0 -10 00:00: 00 Yes [facility] amLODIPine 5 mg tablet 0 - 00:00: 00 Yes [facility] BD INSULIN PEN NEEDLE UF 31 gauge x 5/16" Ndle 0 - 00:00: 00 Yes [facility] BASAGLAR KWIKPEN U-100 INSULIN 100 unit/mL (3 mL) injection 0 02-15 00:00: 00 Yes [facility] BD INSULIN PEN NEEDLE UF 31 gauge x 5/16" Ndle 0 - 00:00: 00 Yes [facility] BASAGLAR KWIKPEN U-100 INSULIN 100 unit/mL (3 mL) injection 0 02-15 00:00: 00 Yes [facility] BD INSULIN PEN NEEDLE UF 31 gauge x 5/16" Ndle 0 - 00:00: 00 Yes [facility] BASAGLAR KWIKPEN U-100 INSULIN 100 unit/mL (3 mL) injection 0 02-15 00:00: 00 Yes [facility] BASAGLAR KWIKPEN U-100 INSULIN 100 unit/mL (3 mL) injection 0 - 00:00: 00 Yes [facility] BD INSULIN PEN NEEDLE UF 31 gauge x 5/16" Ndle 0 7- 00:00: 00 Yes [facility] BD INSULIN PEN NEEDLE UF 31 gauge x 5/16" Ndle 0 7- 00:00: 00 Yes [facility] BASAGLAR KWIKPEN U-100 INSULIN 100 unit/mL (3 mL) injection 0 - 00:00: 00 Yes [facility] BD INSULIN PEN NEEDLE UF 31 gauge x 5/16" Ndle 0 7- 00:00: 00 Yes [facility] BASAGLAR KWIKPEN U-100 INSULIN 100 unit/mL (3 mL) injection 0 - 00:00: 00 Yes [facility] BD INSULIN PEN NEEDLE UF 31 gauge x 5/16" Ndle 0 7- 00:00: 00 Yes [facility] BASAGLAR KWIKPEN U-100 INSULIN 100 unit/mL (3 mL) injection 02-15 00:00: 00 Yes [facility] BD INSULIN PEN NEEDLE UF 31 gauge x 5/16" Ndle 0 - 00:00: 00 Yes [facility] BASAGLAR KWIKPEN U-100 INSULIN 100 unit/mL (3 mL) injection 0 02-15 00:00: 00 Yes [facility] BD INSULIN PEN NEEDLE UF 31 gauge x 5/16" Ndle - 00:00: 00 Yes [facility] BASAGLAR KWIKPEN U-100 INSULIN 100 unit/mL (3 mL) injection 02-15 00:00: 00 Yes [facility] BD INSULIN PEN NEEDLE UF 31 gauge x 5/16" Ndle - 00:00: 00 Yes [facility] BASAGLAR KWIKPEN U-100 INSULIN 100 unit/mL (3 mL) injection 0 - 00:00: 00 Yes [facility] BD INSULIN PEN NEEDLE UF 31 gauge x 5/16" Ndle - 00:00: 00 Yes [facility] BASAGLAR KWIKPEN U-100 INSULIN 100 unit/mL (3 mL) injection 0 - 00:00: 00 Yes [facility] pregabalin 50 mg capsule 2022-0 - 00:00: 00 Yes [facility] pregabalin 50 mg capsule 2022-0 6- 00:00: 00 Yes [facility] pregabalin 50 mg capsule 2022-0 - 00:00: [...] 02-04 00:00: 00 Yes [facility] losartan 50 mg tablet 2022-0 02-04 00:00: 00 Yes [facility] JANUVIA 50 mg tablet 2022-0 02-04 00:00: 00 Yes [facility] losartan 50 mg tablet 2022-0 02-04 00:00: 00 Yes [facility] JANUVIA 50 mg tablet 2022-0 02-04 00:00: 00 Yes [facility] losartan 50 mg tablet 2022-0 02-04 00:00: 00 Yes [facility] JANUVIA 50 mg tablet 2022-0 02-04 00:00: 00 Yes [facility] losartan 50 mg tablet 2022-0 02-04 00:00: 00 Yes [facility] JANUVIA 50 mg tablet 2022-0 02-04 00:00: 00 Yes [facility] losartan 50 mg tablet 2022-0 02-04 00:00: 00 Yes [facility] JANUVIA 50 mg tablet 0 02-04 00:00: 00 Yes [facility] Vital Signs Vital Name Observation Time Observation Value Comments S [facility] [place] Systolic blood pressure 2023-04-14 17:00:00 122 mm[Hg] [facility] Diastolic blood pressure 2023-04-14 17:00:00 50 mm[Hg] [facility] Heart rate 2023-04-14 17:00:00 84 /min [facility] Body temperature 2023-04-14 17:00:00 36.61 [place] [facility] Respiratory rate 2023-04-14 17:00:00 20 /min [facility] Oxygen saturation in Arterial blood by Pulse oximetry 2023-04-14 17:00:00 95 /min [facility] Body weight 2023-04-08 09:11:00 89.495 kg [facility] BMI 2023-04-08 09:11:00 34.95 kg/m2 [facility] Body height 2023-03-28 23:12:00 160 cm [facility] Systolic blood pressure 2023-04-08 09:11:00 134 mm[Hg] [facility] Diastolic blood pressure 2023-04-08 09:11:00 75 mm[Hg] [facility] Heart rate 2023-04-08 09:11:00 110 /min [facility] Body temperature 2023-04-08 09:11:00 36.5 [place] Respiratory rate 2023-04-08 09:11:00 18 /min [facility] Body weight 2023-04-08 09:11:00 89.495 kg [facility] BMI 2023-04-08 09:11:00 34.95 kg/m2 [facility] Oxygen saturation in Arterial blood by Pulse oximetry 2023-04-08 09:11:00 90 /min [facility] Body height 2023-03-28 23:12:00 160 cm [facility] Systolic blood pressure 2023-04-03 12:37:00 137 mm[Hg] [facility] Diastolic blood pressure 2023-04-03 12:37:00 73 mm[Hg] [facility] Heart rate 2023-04-03 12:37:00 74 /min [facility] Body temperature 2023-04-03 12:37:00 36.94 Katy [facility] Oxygen saturation in Arterial blood by Pulse oximetry 2023-04-03 12:37:00 94 /min [facility] Respiratory rate 2023-04-03 09:00:00 17 /min [facility] Body height 2023-03-28 23:12:00 160 cm [facility] Body weight 2023-03-28 23:12:00 90.266 kg [facility] BMI 2023-03-28 23:12:00 35.25 kg/m2 [facility] Systolic blood pressure 2023-03-31 17:30:00 130 mm[Hg] [facility] Diastolic blood pressure 2023-03-31 17:30:00 72 mm[Hg] [facility] Heart rate 2023-03-31 17:30:00 82 /min [facility] Body temperature 2023-03-31 17:30:00 36.5 Katy [facility] Respiratory rate 2023-03-31 17:30:00 20 /min [facility] Oxygen saturation in Arterial blood by Pulse oximetry 2023-03-31 17:30:00 93 /min [place] [facility] Body weight 2023-03-28 23:12:00 90.266 kg [facility] BMI 2023-03-28 23:12:00 35.25 kg/m2 [facility] Body height 2023-03-28 23:12:00 160 cm [facility] Procedures Procedure Date / Time Performed Performing Clinician Source HOME HEALTH - OTHER 2023-06-02 05:01:00 Doctor U nassigned, Byron [facility] AUTHORIZATION FOR RELEASE OF PHI 2023-04-22 05:01:00 Doctor Unassigned, Byron [facility] CBC WITH DIFF 2023-04-14 17:07:00 [facility] ([facility]OMATED) 2023-04-14 17:02:00 Khai [facility] POCT GLUCOSE (AUTOMATED) 2023-04-14 12:28:00 Khai [facility] POCT GLUCOSE (AUTOMATED) 2023-04-14 01:15:00 Khai [facility] POCT GLUCOSE (AUTOMATED) 2023-04-13 21:59:00 Khai [facility] POCT GLUCOSE (AUTOMATED) 2023-04-13 16:17:00 Khai [facility] POCT GLUCOSE (AUTOMATED) 2023-04-13 12:51:00 Khai [facility] BASIC METABOLIC PANEL (NA, K, CL, CO2, GLUCOSE, BUN, CREATININE, CA) 2023-04-13 09:52:00 Nolan Moreland [facility] CBC WITH DIFF 2023-04-13 09:52:00 Nolan Moreland [facility] POCT GLUCOSE (AUTOMATED) 2023-04-13 00:59:00 [facility] 2023-04-12 22:53:00 Nolan Moreland [facility] POCT GLUCOSE (AUTOMATED) 2023-04-12 20:49:00 Natalie Ridley [facility] POCT GLUCOSE (AUTOMATED) 2023-04-12 17:05:00 Khai [facility] CBC WITH DIFF 2023-04-12 15:40:00 Montana Martinez [facility] XR CHEST 1 VW 2023-04-12 15:36:00 Nolan Moreland [facility] POCT GLUCOSE (AUTOMATED) 2023-04-12 12:48:00 Khai [facility] POCT GLUCOSE (AUTOMATED) 2023-04-12 01:14:00 Khai [facility] POCT GLUCOSE (AUTOMATED) 2023-04-11 21:16:00 Khai [facility] POCT GLUCOSE (AUTOMATED) 2023-04-11 17:15:00 Khai [facility] POCT GLUCOSE (AUTOMATED) 2023-04-11 13:08:00 Khai [facility] BASIC METABOLIC PANEL (NA, K, CL, CO2, GLUCOSE, BUN, CREATININE, CA) 2023-04-11 10:52:00 Nolan Moreland [facility] CBC WITH DIFF 2023-04-11 10:52:00 [facility] POCT GLUCOSE (AUTOMATED) 2023-04-11 01:40:00 Khai [facility] POCT GLUCOSE (AUTOMATED) 2023-04-10 23:33:00 Khai [facility] POCT GLUCOSE (AUTOMATED) 2023-04-10 17:42:00 Khai [facility] POCT GLUCOSE (AUTOMATED) 2023-04-10 14:59:00 Khai [facility] PHOSPHORUS 2023-04-10 11:41:00 Clyde Akers [facility] MAGNESIUM 2023-04-10 11:41:00 Clyde Akers [facility] BASIC METABOLIC PANEL (NA, K, CL, CO2, GLUCOSE, BUN, CREATININE, CA) 2023-04-10 11:41:00 Clyde Akers [facility] CBC WITH DIFF 2023-04-10 11:40:00 Clyde Akers [facility] POCT GLUCOSE (AUTOMATED) 2023-04-10 01:11:00 Khai [facility] POCT GLUCOSE (AUTOMATED) 2023-04-09 20:41:00 Khai [facility] POCT GLUCOSE (AUTOMATED) 2023-04-09 20:41:00 Khai [facility] POCT GLUCOSE (AUTOMATED) 2023-04-09 16:44:00 Khai [facility] POCT GLUCOSE (AUTOMATED) 2023-04-09 16:44:00 Khai [facility] POCT GLUCOSE (AUTOMATED) 2023-04-09 12:56:00 Khai [facility] POCT GLUCOSE (AUTOMATED) 2023-04-09 12:56:00 Khai [facility] CT CERVICAL SPINE WO CONTRAST 2023-04-09 11:45:42 Branden Box [facility] POCT GLUCOSE (AUTOMATED) 2023-04-09 02:01:00 Khai [facility] POCT GLUCOSE (AUTOMATED) 2023-04-09 02:01:00 Khai [facility] POCT GLUCOSE (AUTOMATED) 2023-04-08 22:15:00 Khai [facility] POCT GLUCOSE (AUTOMATED) 2023-04-08 22:15:00 Khai [facility] POCT GLUCOSE (AUTOMATED) 2023-04-08 21:17:00 Khai [facility] POCT GLUCOSE (AUTOMATED) 2023-04-08 21:17:00 Khai [facility] XR CERVICAL SPINE 1 VW 2023-04-08 18:12:57 Khai [facility] XR CERVICAL SPINE 1 VW 2023-04-08 18:12:57 Khai [facility] FL TIME OR (NON-REPORTABLE) 2023-04-08 17:00:00 Clyde Akers [facility] FL TIME OR (NON-REPORTABLE) 2023-04-08 17:00:00 Clyde Akers [facility] XR CERVICAL SPINE 1 VW 2023-04-08 15:22:45 [facility] 1 VW 2023-04-08 15:22:45 Khai [facility] URINALYSIS 2023-04-08 14:28:[address] [facility] URINE CULTURE 2023-04-08 14:28:00 Khai [facility] URINALYSIS 2023-04-08 14:28:[address] [facility] URINE CULTURE 2023-04-08 14:28:00 Khai [facility] POSTERIOR CERVICAL FUSION 2023-04-08 13:40:00 Khai [facility] POSTERIOR CERVICAL FUSION 2023-04-08 13:40:00 Khai [facility] POCT GLUCOSE (AUTOMATED) 2023-04-08 12:52:00 Khai [facility] POCT GLUCOSE (AUTOMATED) 2023-04-08 12:52:00 Khai [facility] BASIC METABOLIC PANEL (NA, K, CL, CO2, GLUCOSE, BUN, CREATININE, CA) 2023-04-08 10:31:00 Vikram Villanueva [facility] CBC WITH DIFF 2023-04-08 10:31:00 [facility] PROTHROMBIN TIME / INR 2023-04-08 10:31:00 Vikram Villanueva [facility] ACTIVATED PARTIAL THRMPLAS GYPSY 2023-04-08 10:31:00 Vikram Villanueva [facility] HB ABO GROUPING 2023-04-08 10:31:00 Josefa Villanueva [facility] BASIC METABOLIC PANEL (NA, K, CL, CO2, GLUCOSE, BUN, CREATININE, CA) 2023-04-08 10:31:00 Vikram Villanueva [facility] CBC WITH DIFF 2023-04-08 10:31:00 Josefa Villanueva [facility] PROTHROMBIN TIME / INR 2023-04-08 10:31:00 Vikram Villanueva [facility] ACTIVATED PARTIAL THRMPLAS GYPSY 2023-04-08 10:31:00 Vikram Villanueva [facility] HB ABO GROUPING 2023-04-08 10:31:00 Josefa Villanueva [facility] POCT GLUCOSE (AUTOMATED) 2023-04-08 01:59:00 Khai [facility] POCT GLUCOSE (AUTOMATED) 2023-04-08 01:59:00 Khai [facility] POCT GLUCOSE (AUTOMATED) 2023-04-07 20:54:00 Khai [facility] POCT GLUCOSE (AUTOMATED) 2023-04-07 20:54:00 Khai [facility] POCT GLUCOSE (AUTOMATED) 2023-04-07 16:41:00 Khai [facility] POCT GLUCOSE (AUTOMATED) 2023-04-07 16:41:00 Khai [facility] POCT GLUCOSE (AUTOMATED) 2023-04-07 13:16:00 Khai [facility] POCT GLUCOSE (AUTOMATED) 2023-04-07 13:16:00 Khai [facility] BASIC METABOLIC PANEL (NA, K, CL, CO2, GLUCOSE, BUN, CREATININE, CA) 2023-04-07 08:55:00 Nolan Moreland [facility] CBC WITH DIFF 2023-04-07 08:55:00 Nolan Moreland [facility] BASIC METABOLIC PANEL (NA, K, CL, CO2, GLUCOSE, BUN, CREATININE, CA) 2023-04-07 08:55:00 Nolan Moreland [facility] CBC WITH DIFF 2023-04-07 08:55:00 Nolan Moreland [facility] POCT GLUCOSE (AUTOMATED) 2023-04-07 02:02:00 Khai [facility] POCT GLUCOSE (AUTOMATED) 2023-04-07 02:02:00 Khai [facility] POCT GLUCOSE (AUTOMATED) 2023-04-06 20:49:00 Khai [facility] POCT GLUCOSE (AUTOMATED) 2023-04-06 20:49:00 Khai [facility] POCT GLUCOSE (AUTOMATED) 2023-04-06 16:58:00 Khai [facility] POCT GLUCOSE (AUTOMATED) 2023-04-06 16:58:00 Khai [facility] POCT GLUCOSE (AUTOMATED) 2023-04-06 16:58:00 Khai [facility] POCT GLUCOSE (AUTOMATED) 2023-04-06 12:34:00 Khai [facility] POCT GLUCOSE (AUTOMATED) 2023-04-06 12:34:00 Khai [facility] POCT GLUCOSE (AUTOMATED) 2023-04-06 12:34:00 Khai [facility] POCT GLUCOSE (AUTOMATED) 2023-04-06 00:40:00 Khai [facility] POCT GLUCOSE (AUTOMATED) 2023-04-06 00:40:00 Khai [facility] POCT GLUCOSE (AUTOMATED) 2023-04-06 00:40:00 Khai [facility] POCT GLUCOSE (AUTOMATED) 2023-04-05 21:25:00 Khai [facility] POCT GLUCOSE (AUTOMATED) 2023-04-05 21:25:00 Khai [facility] POCT GLUCOSE (AUTOMATED) 2023-04-05 21:25:00 Khai [facility] POCT GLUCOSE (AUTOMATED) 2023-04-05 17:00:00 Khai [facility] POCT GLUCOSE (AUTOMATED) 2023-04-05 17:00:00 Khai [facility] POCT GLUCOSE (AUTOMATED) 2023-04-05 17:00:00 Khai [facility] POCT GLUCOSE (AUTOMATED) 2023-04-05 13:04:00 Khai [facility] POCT GLUCOSE (AUTOMATED) 2023-04-05 13:04:00 Khai [facility] POCT GLUCOSE (AUTOMATED) 2023-04-05 13:04:00 Khai [facility] POCT GLUCOSE (AUTOMATED) 2023-04-05 00:43:00 Khai [facility] POCT GLUCOSE (AUTOMATED) 2023-04-05 00:43:00 Khai [facility] POCT GLUCOSE (AUTOMATED) 2023-04-05 00:43:00 Khai [facility] POCT GLUCOSE (AUTOMATED) 2023-04-04 22:43:00 Khai [facility] POCT GLUCOSE (AUTOMATED) 2023-04-04 22:43:00 Khai [facility] POCT GLUCOSE (AUTOMATED) 2023-04-04 22:43:00 Khai [facility] POCT GLUCOSE (AUTOMATED) 2023-04-04 17:13:00 Khai [facility] POCT GLUCOSE (AUTOMATED) 2023-04-04 17:13:00 Khai [facility] POCT GLUCOSE (AUTOMATED) 2023-04-04 17:13:00 Khai [facility] POCT GLUCOSE (AUTOMATED) 2023-04-04 13:02:00 Khai [facility] POCT GLUCOSE (AUTOMATED) 2023-04-04 13:02:00 Khai [facility] POCT GLUCOSE (AUTOMATED) 2023-04-04 13:02:00 Khai [facility] POCT GLUCOSE (AUTOMATED) 2023-04-03 20:20:00 Khai [facility] POCT GLUCOSE (AUTOMATED) 2023-04-03 20:20:00 Khai [facility] POCT GLUCOSE (AUTOMATED) 2023-04-03 20:20:00 Khai [facility] MAGNETIC RESONANCE IMAGING UNDER ANESTHESIA 2023-04-03 20:00:00 Anesthesiology [facility] MAGNETIC RESONANCE IMAGING UNDER ANESTHESIA 2023-04-03 20:00:00 Anesthesiology [facility] POCT GLUCOSE (AUTOMATED) 2023-04-03 17:39:00 Khai [facility] POCT GLUCOSE (AUTOMATED) 2023-04-03 17:39:00 [facility] ([facility]) 2023-04-03 17:39:00 Khai [facility] MR LUMBAR SPINE W WO CONTRAST 2023-04-03 17:09:44 [facility] W WO CONTRAST 2023-04-03 17:09:44 Alimi, [facility] MR LUMBAR SPINE W WO CONTRAST 2023-04-03 17:09:44 Alimi, [facility] MR THORACIC SPINE W WO CONTRAST 2023-04-03 17:07:19 Alimi [facility] MR THORACIC SPINE W WO CONTRAST 2023-04-03 17:07:19 Alimi, [facility] MR THORACIC SPINE W WO CONTRAST 2023-04-03 17:07:19 Alimi, [facility] MR CERVICAL SPINE W WO CONTRAST 2023-04-03 17:00:40 [facility] W WO CONTRAST 2023-04-03 17:00:40 Alimi, [facility] MR CERVICAL SPINE W WO CONTRAST 2023-04-03 17:00:40 Alimi [facility] POCT GLUCOSE (AUTOMATED) 2023-04-03 13:05:00 Khai [facility] POCT GLUCOSE (AUTOMATED) 2023-04-03 13:05:00 Khai [facility] POCT GLUCOSE (AUTOMATED) 2023-04-03 13:05:00 Natalie Ridley [facility] BASIC METABOLIC PANEL (NA, K, CL, CO2, GLUCOSE, BUN, CREATININE, CA) 2023-04-03 09:38:00 Aniceto Nolan [facility] CBC WITH DIFF 2023-04-03 09:38:00 Aniceto Nolan [facility] BASIC METABOLIC PANEL (NA, K, CL, CO2, GLUCOSE, BUN, CREATININE, CA) 2023-04-03 09:38:00 MorelandNolan [facility] CBC WITH DIFF 2023-04-03 09:38:00 Aniceto Nolan [facility] BASIC METABOLIC PANEL (NA, K, CL, CO2, GLUCOSE, BUN, CREATININE, CA) 2023-04-03 09:38:00 Aniceto Nolan [facility] CBC WITH DIFF 2023-04-03 09:38:00 Aniceto [facility] POCT GLUCOSE (AUTOMATED) 2023-04-03 02:57:00 Khai [facility] POCT GLUCOSE (AUTOMATED) 2023-04-03 02:57:00 Khai [facility] POCT GLUCOSE (AUTOMATED) 2023-04-03 02:57:00 Khai [facility] POCT GLUCOSE (AUTOMATED) 2023-04-02 21:55:00 Khai [facility] POCT GLUCOSE (AUTOMATED) 2023-04-02 21:55:00 Khai [facility] POCT GLUCOSE (AUTOMATED) 2023-04-02 21:55:00 Khai [facility] POCT GLUCOSE (AUTOMATED) 2023-04-02 17:03:00 Khai [facility] POCT GLUCOSE (AUTOMATED) 2023-04-02 17:03:00 Khai [facility] POCT GLUCOSE (AUTOMATED) 2023-04-02 17:03:00 Khai [facility] POCT GLUCOSE (AUTOMATED) 2023-04-02 12:45:00 Khai [facility] POCT GLUCOSE (AUTOMATED) 2023-04-02 12:45:00 Khai [facility] POCT GLUCOSE (AUTOMATED) 2023-04-02 12:45:00 Khai, [facility] POCT GLUCOSE (AUTOMATED) 2023-04-02 02:50:00 Khai [facility] POCT GLUCOSE (AUTOMATED) 2023-04-02 02:50:00 Khai [facility] POCT GLUCOSE (AUTOMATED) 2023-04-02 02:50:00 Khai [facility] POCT GLUCOSE (AUTOMATED) 2023-04-01 21:00:00 Khai [facility] POCT GLUCOSE (AUTOMATED) 2023-04-01 21:00:00 Khai [facility] POCT GLUCOSE (AUTOMATED) 2023-04-01 21:00:00 Khai [facility] POCT GLUCOSE (AUTOMATED) 2023-04-01 17:18:00 Khai [facility] POCT GLUCOSE (AUTOMATED) 2023-04-01 17:18:00 Khai [facility] POCT GLUCOSE (AUTOMATED) 2023-04-01 17:18:00 Khai [facility] POCT GLUCOSE (AUTOMATED) 2023-04-01 17:18:00 Khai [facility] POCT GLUCOSE (AUTOMATED) 2023-04-01 13:52:00 Khai [facility] POCT GLUCOSE (AUTOMATED) 2023-04-01 13:52:00 Khai [facility] POCT GLUCOSE (AUTOMATED) 2023-04-01 13:52:00 Khai [facility] POCT GLUCOSE (AUTOMATED) 2023-04-01 13:52:00 Khai [facility] XR CERVICAL SPINE 2 VW 2023-04-01 12:10:59 Vikram Villanueva [facility] XR CERVICAL SPINE 2 VW 2023-04-01 12:10:59 Vikram Villanueva [facility] XR CERVICAL SPINE 2 VW 2023-04-01 12:10:59 Vikram Villanueva [facility] XR CERVICAL SPINE 2 VW 2023-04-01 12:10:59 Vikram Villanueva [facility] BASIC METABOLIC PANEL (NA, K, CL, CO2, GLUCOSE, BUN, CREATININE, CA) 2023-04-01 08:21:00 Vikram Villanueva [facility] CBC WITH DIFF 2023-04-01 08:21:00 [facility]OLIC PANEL (NA, K, CL, CO2, GLUCOSE, BUN, CREATININE, CA) 2023-04-01 08:21:00 Vikram Villanueva [facility] CBC WITH DIFF 2023-04-01 08:21:00 Josefa Villanueva [facility] BASIC METABOLIC PANEL (NA, K, CL, CO2, GLUCOSE, BUN, CREATININE, CA) 2023-04-01 08:21:00 [facility] 2023-04-01 08:21:00 Josefa Villanueva [facility] BASIC METABOLIC PANEL (NA, K, CL, CO2, GLUCOSE, BUN, CREATININE, CA) 2023-04-01 08:21:00 [facility] CBC WITH DIFF 2023-04-01 08:21:00 Josefa Villanueva [facility] POCT GLUCOSE (AUTOMATED) 2023-04-01 01:25:00 Khai [facility] POCT GLUCOSE (AUTOMATED) 2023-04-01 01:25:00 Khai [facility] POCT GLUCOSE (AUTOMATED) 2023-04-01 01:25:00 Khai [facility] POCT GLUCOSE (AUTOMATED) 2023-04-01 01:25:00 Khai [facility] POCT GLUCOSE (AUTOMATED) 2023-03-31 22:32:00 Khai [facility] POCT GLUCOSE (AUTOMATED) 2023-03-31 22:32:00 Khai [facility] POCT GLUCOSE (AUTOMATED) 2023-03-31 22:32:00 Khai [facility] POCT GLUCOSE (AUTOMATED) 2023-03-31 22:32:00 [facility] 2023-03-31 22:00:00 Khai [facility] XR CERVICAL SPINE 1 2023-03-31 22:00:00 Khai [facility] XR CERVICAL SPINE 1 2023-03-31 22:00:00 [facility] 1 2023-03-31 22:00:00 Khai [facility] XR CERVICAL SPINE 1 2023-03-31 21:30:00 Haywo rth, Aide Smith [facility] XR CERVICAL SPINE 1 2023-03-31 21:30:00 Haywo rth, Aide Smith [facility] XR CERVICAL SPINE 1 2023-03-31 21:30:00 Haywo rth, Aide Smith [facility] XR CERVICAL SPINE 1 2023-03-31 21:30:00 Haywo rth, Aide Smith [facility] SURGICAL PATHOLOGY EXAM 2023-03-31 20:17:00 [facility]23-03-31 20:17:00 [facility] 2023-03-31 20:17:00 [facility] 2023-03-31 20:17:00 Jacek Ridley [facility] ABG+COOX+NA+K+GLU+CA2+ 2023-03-31 20:12:00 Khai [facility] ABG+COOX+NA+K+GLU+CA2+ 2023-03-31 20:12:00 Khai [facility] ABG+COOX+NA+K+GLU+CA2+ 2023-03-31 20:12:00 Khai [facility] ABG+COOX+NA+K+GLU+CA2+ 2023-03-31 20:12:00 Khai [facility] XR CERVICAL SPINE 1 VW 2023-03-31 19:42:00 Haywo rth, Aide Smith [facility] XR CERVICAL SPINE 1 VW 2023-03-31 19:42:00 Haywo rth, Aide Smith [facility] XR CERVICAL SPINE 1 VW 2023-03-31 19:42:00 Haywo rth, Aide Smith [facility] XR CERVICAL SPINE 1 VW 2023-03-31 19:42:00 Haywo rth, Aide Smith [facility] XR CERVICAL SPINE 1 VW 2023-03-31 19:30:00 Haywo rth, Aide Smith [facility] XR CERVICAL SPINE 1 VW 2023-03-31 19:30:00 Haywo rth, Aide Smith [facility] XR CERVICAL SPINE 1 VW 2023-03-31 19:30:00 Haywo rth, Aide Smith [facility] XR CERVICAL SPINE 1 VW 2023-03-31 19:30:00 Haywo rth, Aide Smith [facility] XR CERVICAL SPINE 1 VW 2023-03-31 19:15:00 Haywo rth, Aide Smith [facility] XR CERVICAL SPINE 1 VW 2023-03-31 19:15:00 Haywo rth, Aide Smith [facility] XR CERVICAL SPINE 1 VW 2023-03-31 19:15:00 Haywo rth, Aide Smith [facility] XR CERVICAL SPINE 1 VW 2023-03-31 19:15:00 Haywo rth, Aide Smith [facility] ANTERIOR CORPECTOMY 2023-03-31 18:13:00 Khai, Natalie [facility] ANTERIOR CORPECTOMY 2023-03-31 18:13:00 Khai, Natalie [facility] POCT GLUCOSE (AUTOMATED) 2023-03-31 17:28:00 Betito Nunes [facility] POCT GLUCOSE (AUTOMATED) 2023-03-31 17:28:00 Bettio Nunes [facility] POCT GLUCOSE (AUTOMATED) 2023-03-31 17:28:00 Betito Nunes [facility] POCT GLUCOSE (AUTOMATED) 2023-03-31 17:28:00 Betito Nunes [facility] POCT GLUCOSE (AUTOMATED) 2023-03-31 13:15:00 Betito Nunes [facility] POCT GLUCOSE (AUTOMATED) 2023-03-31 13:15:00 Betito Nunes [facility] POCT GLUCOSE (AUTOMATED) 2023-03-31 13:15:00 Betito Nunes [facility] POCT GLUCOSE (AUTOMATED) 2023-03-31 13:15:00 Betito Nunes [facility] BASIC METABOLIC PANEL (NA, K, CL, CO2, GLUCOSE, BUN, CREATININE, CA) 2023-03-31 08:30:00 Montana Martinez [facility] CBC WITH DIFF 2023-03-31 08:30:00 Montana Martinez [facility] PROTHROMBIN TIME / INR 2023-03-31 08:30:00 Montana Martinez [facility] ACTIVATED PARTIAL THRMPLAS GYPSY 2023-03-31 08:30:00 Montana Martinez [facility] BASIC METABOLIC PANEL (NA, K, CL, CO2, GLUCOSE, BUN, CREATININE, CA) 2023-03-31 08:30:00 Montana Martinez [facility] CBC WITH DIFF 2023-03-31 08:30:00 Montana Martinez [facility] PROTHROMBIN TIME / INR 2023-03-31 08:30:00 [facility] GYPSY 2023-03-31 08:30:00 Montana Martinez [facility] BASIC METABOLIC PANEL (NA, K, CL, CO2, GLUCOSE, BUN, CREATININE, CA) 2023-03-31 08:30:00 Montana Martinez [facility] CBC WITH DIFF 2023-03-31 08:30:00 Montana Martinez [facility] PROTHROMBIN TIME / INR 2023-03-31 08:30:00 Martinez, [facility] ACTIVATED PARTIAL THRMPLAS GYPSY 2023-03-31 08:30:00 Enrique [facility] BASIC METABOLIC PANEL (NA, K, CL, CO2, GLUCOSE, BUN, CREATININE, CA) 2023-03-31 08:30:00 Montana Martinez [facility] CBC WITH DIFF 2023-03-31 08:30:00 [facility] 2023-03-31 08:30:00 Montana Martinez Conrad [facility] ACTIVATED PARTIAL THRMPLAS GYPSY 2023-03-31 08:30:00 [facility] 2023-03-31 02:47:00 Betito Nunes [facility] POCT GLUCOSE (AUTOMATED) 2023-03-31 02:47:00 Betito Nunes [facility] POCT GLUCOSE (AUTOMATED) 2023-03-31 02:47:00 Betito Nunes [facility] POCT GLUCOSE (AUTOMATED) 2023-03-31 02:47:00 Betito Nunes [facility] POCT GLUCOSE (AUTOMATED) 2023-03-30 21:36:00 Betito Nunes [facility] POCT GLUCOSE (AUTOMATED) 2023-03-30 21:36:00 Betito Nunes [facility] POCT GLUCOSE (AUTOMATED) 2023-03-30 21:36:00 Betito Nunes [facility] POCT GLUCOSE (AUTOMATED) 2023-03-30 21:36:00 Betito Nunes [facility] POCT GLUCOSE (AUTOMATED) 2023-03-30 17:56:00 Betito Nunes [facility] POCT GLUCOSE (AUTOMATED) 2023-03-30 17:56:00 Betito Nunes [facility] POCT GLUCOSE (AUTOMATED) 2023-03-30 17:56:00 Betito Nunes [facility] POCT GLUCOSE (AUTOMATED) 2023-03-30 17:56:00 Betito Nunes [facility] MR THORACIC SPINE WO CONTRAST 2023-03-30 17:28:00 Enrique [facility] MR THORACIC SPINE WO CONTRAST 2023-03-30 17:28:00 Enrique [facility] MR THORACIC SPINE WO CONTRAST 2023-03-30 17:28:00 Enrique [facility] MR THORACIC SPINE WO CONTRAST 2023-03-30 17:28:00 Enrique [facility] POCT GLUCOSE (AUTOMATED) 2023-03-30 13:02:00 Betito Nunes [facility] POCT GLUCOSE (AUTOMATED) 2023-03-30 13:02:00 Betito Nunes [facility] POCT GLUCOSE (AUTOMATED) 2023-03-30 13:02:00 Betito Nunes [facility] POCT GLUCOSE (AUTOMATED) 2023-03-30 13:02:00 Betito Nunes [facility] BASIC METABOLIC PANEL (NA, K, CL, CO2, GLUCOSE, BUN, CREATININE, CA) 2023-03-30 09:45:00 [facility] 2023-03-30 09:45:00 [facility] (NA, K, CL, CO2, GLUCOSE, BUN, CREATININE, CA) 2023-03-30 09:45:00 [facility] 2023-03-30 09:45:00 Dipti Gilman [facility] BASIC METABOLIC PANEL (NA, K, CL, CO2, GLUCOSE, BUN, CREATININE, CA) 2023-03-30 09:45:00 [facility]FF 2023-03-30 09:45:00 [facility]OLIC PANEL (NA, K, CL, CO2, GLUCOSE, BUN, CREATININE, CA) 2023-03-30 09:45:00 [facility]FF 2023-03-30 09:45:00 Dipti Gilman [facility] POCT GLUCOSE (AUTOMATED) 2023-03-30 01:11:00 Betito Nunes [facility] POCT GLUCOSE (AUTOMATED) 2023-03-30 01:11:00 Betito Nunes [facility] POCT GLUCOSE (AUTOMATED) 2023-03-30 01:11:00 Betito Nunes [facility] POCT GLUCOSE (AUTOMATED) 2023-03-30 01:11:00 Betito Nunes [facility] POCT GLUCOSE (AUTOMATED) 2023-03-29 22:59:00 BrineBetito chao [facility] POCT GLUCOSE (AUTOMATED) 2023-03-29 22:59:00 Betito Nunes [facility] POCT GLUCOSE (AUTOMATED) 2023-03-29 22:59:00 Betito Nunes [facility] POCT GLUCOSE (AUTOMATED) 2023-03-29 22:59:00 Betito Nunes [facility] MR CERVICAL SPINE WO CONTRAST 2023-03-29 21:19:29 MorelandNolan [facility] MR CERVICAL SPINE WO CONTRAST 2023-03-29 21:19:29 MorelandNolan [facility] MR CERVICAL SPINE WO CONTRAST 2023-03-29 21:19:29 MorelandNolan [facility] MR CERVICAL SPINE WO CONTRAST 2023-03-29 21:19:29 Nolan Moreland [facility] POCT GLUCOSE (AUTOMATED) 2023-03-29 17:46:00 Betito Nunes [facility] POCT GLUCOSE (AUTOMATED) 2023-03-29 17:46:00 Betito Nunes [facility] POCT GLUCOSE (AUTOMATED) 2023-03-29 17:46:00 Betito Nunes [facility] POCT GLUCOSE (AUTOMATED) 2023-03-29 17:46:00 Betito Nunes [facility] POCT GLUCOSE (AUTOMATED) 2023-03-29 15:51:00 BrineBetito chao [facility] POCT GLUCOSE (AUTOMATED) 2023-03-29 15:51:00 Betito Nunes [facility] POCT GLUCOSE (AUTOMATED) 2023-03-29 15:51:00 Betito Nunes [facility] POCT GLUCOSE (AUTOMATED) 2023-03-29 15:51:00 Betito Nunes [facility] POCT GLUCOSE (AUTOMATED) 2023-03-29 13:16:00 Betito Nunes [facility] POCT GLUCOSE (AUTOMATED) 2023-03-29 13:16:00 Betito Nunes [facility] POCT GLUCOSE (AUTOMATED) 2023-03-29 13:16:00 Betito Nunes [facility] POCT GLUCOSE (AUTOMATED) 2023-03-29 13:16:00 Betito Nunes [facility] TROPONIN I 2023-03-29 11:20:00 Dipti Gilman [facility] BASIC METABOLIC PANEL (NA, K, CL, CO2, GLUCOSE, BUN, CREATININE, CA) 2023-03-29 11:20:00 Nolan Moreland [facility] N-TERMINAL PRO-BNP 2023-03-29 11:20:00 Dipti Gilman [facility] TROPONIN I 2023-03-29 11:20:00 Dipti Gilman [facility] BASIC METABOLIC PANEL (NA, K, CL, CO2, GLUCOSE, BUN, CREATININE, CA) 2023-03-29 11:20:00 Nolan Moreland [facility] N-TERMINAL PRO-BNP 2023-03-29 11:20:00 KhaiiDipti [facility] TROPONIN I 2023-03-29 11:20:00 Dipti Gilman [facility] BASIC METABOLIC PANEL (NA, K, CL, CO2, GLUCOSE, BUN, CREATININE, CA) 2023-03-29 11:20:00 Nolan Moreland [facility] N-TERMINAL PRO-BNP 2023-03-29 11:20:00 KhaiiDipti [facility] TROPONIN I 2023-03-29 11:20:00 Dipti Gilman [facility] BASIC METABOLIC PANEL (NA, K, CL, CO2, GLUCOSE, BUN, CREATININE, CA) 2023-03-29 11:20:00 Moreland [facility] N-TERMINAL PRO-BNP 2023-03-29 11:20:00 Dipti Gilman [facility] CT ABDOMEN PELVIS W CONTRAST 2023-03-29 09:00:00 Moreland [facility] CT CERVICAL SPINE WO CONTRAST 2023-03-29 09:00:00 Moreland, [facility] CT THORAX W CONTRAST 2023-03-29 09:00:00 Villarr eal, [facility] CT ABDOMEN PELVIS W CONTRAST 2023-03-29 09:00:00 Moreland, [facility] CT CERVICAL SPINE WO CONTRAST 2023-03-29 09:00:00 Moreland, [facility] CT THORAX W CONTRAST 2023-03-29 09:00:00 Villarr eal, [facility] CT ABDOMEN PELVIS W CONTRAST 2023-03-29 09:00:00 Moreland, [facility] CT CERVICAL SPINE WO CONTRAST 2023-03-29 09:00:00 Moreland, [facility] CT THORAX W CONTRAST 2023-03-29 09:00:00 Villarr eal, [facility] CT ABDOMEN PELVIS W CONTRAST 2023-03-29 09:00:00 Moreland, [facility] CT CERVICAL SPINE WO CONTRAST 2023-03-29 09:00:00 Moreland, [facility] CT THORAX W CONTRAST 2023-03-29 09:00:00 Villarr eal, [facility] ABORH CONFIRMATION (LAB ONLY) 2023-03-29 05:32:00 Betito Nunes [facility] ABORH CONFIRMATION (LAB ONLY) 2023-03-29 05:32:00 Betito Nunes [facility] ABORH CONFIRMATION (LAB ONLY) 2023-03-29 05:32:00 Betito Nunes [facility] ABORH CONFIRMATION (LAB ONLY) 2023-03-29 05:32:00 Betito Nunes [facility] C-REACTIVE PROTEIN 2023-03-29 05:09:00 Nolan Keita [facility] BASIC METABOLIC PANEL (NA, K, CL, CO2, GLUCOSE, BUN, CREATININE, CA) 2023-03-29 05:09:00 Nolan Moreland [facility] SEDIMENTATION RATE 2023-03-29 05:09:00 Nolan Keita [facility] CBC WITH DIFF 2023-03-29 05:09:00 Nolan Moreland [facility] GLYCOSYLATED HEMOGLOBIN (A1C) 2023-03-29 05:09:00 KhaiiDipti [facility] PROTHROMBIN TIME / INR 2023-03-29 05:09:00 Nolan Amador [facility] ACTIVATED PARTIAL THRMPLAS GYPSY 2023-03-29 05:09:00 Nolan Moreland [facility] HB ABO GROUPING 2023-03-29 05:09:00 Nolan Moreland [facility] C-REACTIVE PROTEIN 2023-03-29 05:09:00 Nolan Keita [facility] BASIC METABOLIC PANEL (NA, K, CL, CO2, GLUCOSE, BUN, CREATININE, CA) 2023-03-29 05:09:00 Nolan Moreland [facility] SEDIMENTATION RATE 2023-03-29 05:09:00 Nolan Keita [facility] CBC WITH DIFF 2023-03-29 05:09:00 Nolan Moreland [facility] GLYCOSYLATED HEMOGLOBIN (A1C) 2023-03-29 05:09:00 Dipti Gilman [facility] PROTHROMBIN TIME / INR 2023-03-29 05:09:00 Eduard rrbladimir [facility] ACTIVATED PARTIAL THRMPLAS GYPSY 2023-03-29 05:09:00 Aniceto [facility] HB ABO GROUPING 2023-03-29 05:09:00 Aniceto [facility] C-REACTIVE PROTEIN 2023-03-29 05:09:00 Nolan Keita [facility] BASIC METABOLIC PANEL (NA, K, CL, CO2, GLUCOSE, BUN, CREATININE, CA) 2023-03-29 05:09:00 Aniceto Nolan Shaw [facility] SEDIMENTATION RATE 2023-03-29 05:09:00 Gaby etienne Nolan Shaw [facility] CBC WITH DIFF 2023-03-29 05:09:00 Aniceto Nolan [facility] GLYCOSYLATED HEMOGLOBIN (A1C) 2023-03-29 05:09:00 Dipti Gilman [facility] PROTHROMBIN TIME / INR 2023-03-29 05:09:00 Eduard maza Nolan [facility] ACTIVATED PARTIAL THRMPLAS GYPSY 2023-03-29 05:09:00 Aniceto [facility] HB ABO GROUPING 2023-03-29 05:09:00 Aniceto [facility] C-REACTIVE PROTEIN 2023-03-29 05:09:00 Gaby etienne Nolan [facility] BASIC METABOLIC PANEL (NA, K, CL, CO2, GLUCOSE, BUN, CREATININE, CA) 2023-03-29 05:09:00 Aniceto [facility] SEDIMENTATION RATE 2023-03-29 05:09:00 Gaby etienne Nolan [facility] CBC WITH DIFF 2023-03-29 05:09:00 Aniceto [facility] GLYCOSYLATED HEMOGLOBIN (A1C) 2023-03-29 05:09:00 Dipti Gilman [facility] PROTHROMBIN TIME / INR 2023-03-29 05:09:00 Eduard maza [facility] ACTIVATED PARTIAL THRMPLAS GYPSY 2023-03-29 05:09:00 Aniceto [facility] HB ABO GROUPING 2023-03-29 05:09:00 Aniceot [facility] MR CERVICAL SPINE WO CONTRAST 2023-03-19 16:59:51 Requisition, Paper [facility] ASSIGNMENT OF BENEFITS 2023-03-19 15:59:50 Docto r Unassigned, Byron [facility] Encounters Start Date/Time End Date/Time Encounter Type Admission Type Attending Clinicians Care Facility Care Department Encounter ID Source 2023-06-02 00:00:00 2023-06-02 00:00:00 Orders Only Doctor Unassigned, Byron [facility] 1.2.840.114 350.1.13.10 4.2.7.2.686 [id number] [id number] [facility] 2023-04-22 00:00:00 2023-04-22 00:00:00 Orders Only Doctor Unassigned, Byron [facility] 1.2.840.114 350.1.13.10 4.2.7.2.686 [id number] [id number] [facility] 2023-04-21 00:00:00 2023-04-21 00:00:00 Telephone Natalie Ridley [facility] 1.2.840.114 350.1.13.10 4.2.7.2.686 [id number] [facility] 2023-04-21 00:00:00 2023-04-21 00:00:00 Telephone Sarah Camp [facility] 1.2.840.114 350.1.13.10 4.2.7.2.686 [id number] [facility] 2023-04-16 00:00:00 2023-04-16 00:00:00 Telephone Rodolfo Hassan BUILDING 1.2.840.114 350.1.13.10 4.2.7.2.686 [id number] [facility] 2023-04-15 00:00:00 2023-04-15 00:00:00 Transition of Care David Genao 1.2.840.114 350.1.13.10 4.2.7.2.686 [id number] [facility] 2023-03-28 17:49:00 2023-04-14 17:03:00 [id number] 2023-03-28 17:49:00 2023-04-14 17:03:00 Hospital Encounter Betito Nunes [facility] 1.2.840.114 350.1.13.10 4.2.7.2.686 [id number] [facility] 2023-04-08 08:40:00 2023-04-08 13:41:00 Surgery [facility] 1.2.840.114 350.1.13.10 4.2.7.2.686 [id number] [facility] 2023-04-03 07:00:00 2023-04-03 08:57:00 Surgery [facility]esthesiol [facility] 1.2.840.114 350.1.13.10 4.2.7.2.686 [id number] [facility] 2023-03-31 12:39:00 2023-03-31 16:44:00 Surgery [facility] 1.2.840.114 350.1.13.10 4.2.7.2.686 [id number] [facility] 2023-03-25 00:00:00 2023-03-25 00:00:00 Outpatient R RADIOLOGY [facility] [id number] [facility] 2023-03-19 12:04:14 2023-03-19 23:59:00 Hospital Encounter Radiology [facility] 1.2.840.114 350.1.13.10 4.2.7.2.686 [id number] [facility] 2023-03-19 11:02:55 2023-03-19 12:03:00 Hospital Encounter Radiology [facility] 1.2.840.114 350.1.13.10 4.2.7.2.686 [id number] [facility] 2023-03-19 11:02:55 2023-03-19 12:03:00 Outpatient R RADIOLOGY [facility] [id number] [facility] 2023-03-19 00:00:00 2023-03-19 00:00:00 Orders Only Doctor Unassigned, Byron [facility] 1.2.840.114 350.1.13.10 4.2.7.2.686 [id number] [facility] Results Test Description Test Time Test Comments Results Result Co mments Source [facility] GLUCOSE (AUTOMATED)2023-04-14 17:04:00* Test Item Value Reference Range Interpretation Comme nts POCT GLU (test code = 4655538854) 126 mg/dL 70-110 H Lab Interpretation (test cod e = 84911-0) [facility]14 12:30:48* Test Item Value Reference Range Interpretation Comme nts POCT GLU (test code = 4240987834) 120 mg/dL 70-110 H Lab Interpretation (test cod e = 28599-3) [facility] 01:16:29* Test Item Value Reference Range Interpretation Comme nts POCT GLU (test code = 6041983615) 145 mg/dL 70-110 H Lab Interpretation (test cod e = 50396-8) [facility]13 22:02:07* Test Item Value Reference Range Interpretation Comme nts POCT GLU (test code = 4347913564) 156 mg/dL 70-110 H Lab Interpretation (test cod e = 32523-0) [facility] 16:21:16* Test Item Value Reference Range Interpretation Comme nts POCT GLU (test code = 5513352670) 141 mg/dL 70-110 H Lab Interpretation (test cod e = 85463-0) [facility]13 15:00:32* Test Item Value Reference Range Interpretation Comme nts POCT GLU (test code = 7663023862) 137 mg/dL 70-110 H Lab Interpretation (test cod e = 98472-2) [facility]2023-04-13 12:57:13* Test Item Value Reference Range Interpretation Comme [facility] POCT GLU (test code = 0935718070) 106 mg/dL 70-110 Lab Interpretation (test cod e = 00033-6) Normal [facility] METABOLIC PANEL (NA, K, CL, CO2, GLUCOSE, BUN, CREATININE, CA)2023-04-13 11:18:30* Test Item Value Reference Range Interpretation Comme [facility] NA (test code = 1225092705) 134 mmol/L 135-145 L K (test code = 2523963448) 4.5 mmol/L 3.5-5.0 Slight hemolysis CL (test code = 1260886499) 98 mmol/L 98-108 CO2 TOTAL (test code = 4972794765) 25 mmol/L 23-31 AGAP (test code = 7249536357) 11 2-16 BUN (test code = 7285843004) 18 mg/dL 7-23 Slight hemolysis GLUCOSE (test code = 0668215265) 102 mg/dL 70-110 CREATININE (test code = 7553549867) 0.70 mg/dL 0.50-1.04 CALCIUM (test code = 2129139096) 8.8 mg/dL 8.6-10.6 eGFR (test code = 2520826337) 80.7 mL/min/1.73m2 GARRICK (test code = GARRICK) [...] imaging tests). Lab Interpretation (test code = 77968-4) Abnormal [facility] WITH [id number] 11:05:10* Test Item Value Reference Range Interpretation [...] 32.8 g/dL 31.6-35.1 RDW-SD (test code = 40067-8) 40.8 fL 39.0-49.9 RDW-CV (test code = 788-0) 12.8 % 12.0-15.5 PLT (test code = 777-3) 339 See_Comment [Automated message] The system which generated this result transmitted reference range: 166 - 358 10*3/?L. The reference range was not used to interpret this result as normal/abnormal. MPV (test code = 57971-2) 10.4 fL 9.5-12.9 NRBC/100 WBC (test code = 7617641969) 0.0 See_Comment [Automated message] The system which generated this result transmitted reference range: 0.0 - 10.0 /100 WBCs. The reference range was not used to interpret this result as normal/abnormal. NRBC x10^3 (test code = 6941446193) See_Comment [Automated message] The system which generated this result transmitted reference range: 10*3/?L. The reference range was not used to interpret this result as normal/abnormal. GRAN MAT (NEUT) % (test code = 770-8) 75.9 % IMM GRAN % (test code = 0247097638) 0.50 % LYMPH % (test code = 736-9) 15.8 % MONO % (test code = 5905-5) 6.2 % EOS % (test code = 713-8) 1.2 % BASO % (test code = 706-2) 0.4 % GRAN MAT x10^3(ANC) (test code = 8529064384) 10.97 10*3/uL 1.88-7.09 H IMM GRAN x10^3 (test code = 6410845641) 0.07 10*3/uL 0.00-0.06 H LYMPH x10^3 (test code = 731-0) 2.29 10*3/uL 1.32-3.29 MONO x10^3 (test code = 742-7) 0.89 10*3/uL 0.33-0.92 EOS x10^3 (test code = 711-2) 0.18 10*3/uL 0.03-0.39 BASO x10^3 (test code = 704-7) 0.06 10*3/uL 0.01-0.07 Lab Interpretation (test code = 99846-3) Abnormal [facility] GLUCOSE (AUTOMATED)2023-04-12 20:50:27* Test Item Value Reference Range Interpretation Comme nts POCT GLU (test code = 6121614473) 103 mg/dL 70-110 Lab Interpretation (test cod e = 07437-9) Normal [facility] GLUCOSE (AUTOMATED)2023-04-12 17:05:51* Test Item Value Reference Range Interpretation Comme nts POCT GLU (test code = 0827385037) 119 mg/dL 70-110 H Lab Interpretation (test cod e = 41459-3) Abnormal [facility] GLUCOSE (AUTOMATED)2023-04-12 12:49:23* Test Item Value Reference Range Interpretation Comme nts POCT GLU (test code = 9555839185) 112 mg/dL 70-110 H Lab Interpretation (test cod e = 03157-3) Abnormal [facility] GLUCOSE (AUTOMATED)2023-04-12 01:14:54* Test Item Value Reference Range Interpretation Comme nts POCT GLU (test code = 4731931024) 121 mg/dL 70-110 H Lab Interpretation (test cod e = 88156-4) Abnormal [facility] GLUCOSE (AUTOMATED)2023-04-11 21:17:25* Test Item Value Reference Range Interpretation Comme nts POCT GLU (test code = 3416508945) 149 mg/dL 70-110 H Lab Interpretation (test cod e = 37052-9) Abnormal [facility] GLUCOSE (AUTOMATED)2023-04-11 17:16:57* Test Item Value Reference Range Interpretation Comme nts POCT GLU (test code = 3802509941) 146 mg/dL 70-110 H Lab Interpretation (test cod e = 56546-2) Abnormal [facility] GLUCOSE (AUTOMATED)2023-04-11 13:09:24* Test Item Value Reference Range Interpretation Comme nts POCT GLU (test code = 5594863449) 113 mg/dL 70-110 H Lab Interpretation (test cod e = 86078-8) Abnormal [facility] GLUCOSE (AUTOMATED)2023-04-11 01:42:20* Test Item Value Reference Range Interpretation Comme nts POCT GLU (test code = 0405226221) 159 mg/dL 70-110 H Lab Interpretation (test cod e = 98038-1) Abnormal [facility] GLUCOSE (AUTOMATED)2023-04-10 23:34:23* Test Item Value Reference Range Interpretation Comme nts POCT GLU (test code = 7121175121) 149 mg/dL 70-110 H Lab Interpretation (test cod e = 84768-9) Abnormal [facility] GLUCOSE (AUTOMATED)2023-04-10 17:43:50* Test Item Value Reference Range Interpretation Comme nts POCT GLU (test code = 6441674133) 207 mg/dL 70-110 H Lab Interpretation (test cod e = 94242-0) Abnormal [facility] GLUCOSE (AUTOMATED)2023-04-10 15:01:13* Test Item Value Reference Range Interpretation Comme nts POCT GLU (test code = 0323584386) 153 mg/dL 70-110 H Lab Interpretation (test cod e = 79004-3) Abnormal [facility] METABOLIC PANEL (NA, K, CL, CO2, GLUCOSE, BUN, CREATININE, CA)2023-04-10 12:20:29* Test Item Value Reference Range Interpretation Comme [facility] NA (test code = 0593664222) 135 mmol/L 135-145 K (test code = 4761498791) 4.2 mmol/L 3.5-5.0 CL (test code = 7887923340) 98 mmol/L 98-108 CO2 TOTAL (test code = 3928242787) 26 mmol/L 23-31 AGAP (test code = 9031531199) 11 2-16 BUN (test code = 2067987133) 14 mg/dL 7-23 GLUCOSE (test code = 5260941644) 152 mg/dL 70-110 H CREATININE (test code = 4504932581) 0.80 mg/dL 0.50-1.04 CALCIUM (test code = 8197703318) 8.5 mg/dL 8.6-10.6 L eGFR (test code = 1991268180) 69.2 mL/min/1.73m2 GARRICK (test code = GARRICK) [...] imaging tests). Lab Interpretation (test code = 32181-9) [facility] 12:20:29* Test Item Value Reference Range Interpretation Comme nts MAGNESIUM (test code = 0039367693) 2.3 mg/dL 1.7-2.4 Lab Interpretation (test cod e = 28493-0) [facility] 12:20:29* Test Item Value Reference Range Interpretation Comme nts PHOSPHORUS (test code = 7687672367) 3.1 mg/dL 2.5-5.0 Lab Interpretation (test cod e = 47457-7) [facility] [id number] 11:56:06* Test Item Value Reference Range Interpretation [...] 33.0 g/dL 31.6-35.1 RDW-SD (test code = 62583-2) 41.5 fL 39.0-49.9 RDW-CV (test code = 788-0) 13.1 % 12.0-15.5 PLT (test code = 777-3) 245 See_Comment [Automated message] The system which generated this result transmitted reference range: 166 - 358 10*3/?L. The reference range was not used to interpret this result as normal/abnormal. MPV (test code = 06866-3) 9.7 fL 9.5-12.9 NRBC/100 WBC (test code = 3708938655) 0.0 See_Comment [Automated message] The system which generated this result transmitted reference range: 0.0 - 10.0 /100 WBCs. The reference range was not used to interpret this result as normal/abnormal. NRBC x10^3 (test code = 9225763442) See_Comment [Automated message] The system which generated this result transmitted reference range: 10*3/?L. The reference range was not used to interpret this result as normal/abnormal. GRAN MAT (NEUT) % (test code = 770-8) 77.4 % IMM GRAN % (test code = 3971491167) 0.50 % LYMPH % (test code = 736-9) 14.0 % MONO % (test code = 5905-5) 7.8 % EOS % (test code = 713-8) 0.1 % BASO % (test code = 706-2) 0.2 % GRAN MAT x10^3(ANC) (test code = 2708476719) 13.92 10*3/uL 1.88-7.09 H IMM GRAN x10^3 (test code = 4657044272) 0.09 10*3/uL 0.00-0.06 H LYMPH x10^3 (test code = 731-0) 2.53 10*3/uL 1.32-3.29 MONO x10^3 (test code = 742-7) 1.41 10*3/uL 0.33-0.92 H EOS x10^3 (test code = 711-2) 0.03-0.39 L BASO x10^3 (test code = 704-7) 0.04 10*3/uL 0.01-0.07 Lab Interpretation (test code = 37887-4) Abnormal [facility] GLUCOSE (AUTOMATED)2023-04-10 01:12:22* Test Item Value Reference Range Interpretation Comme nts POCT GLU (test code = 5978145726) 149 mg/dL 70-110 H Lab Interpretation (test cod e = 88477-1) Abnormal [facility] GLUCOSE (AUTOMATED)2023-04-09 20:43:14* Test Item Value Reference Range Interpretation Comme nts POCT GLU (test code = 7460898076) 148 mg/dL 70-110 H Lab Interpretation (test cod e = 37044-0) Abnormal [facility] GLUCOSE (AUTOMATED)2023-04-09 20:43:14* Test Item Value Reference Range Interpretation Comme nts POCT GLU (test code = 6469809845) 148 mg/dL 70-110 H Lab Interpretation (test cod e = 31308-1) Abnormal [facility] GLUCOSE (AUTOMATED)2023-04-09 16:45:10* Test Item Value Reference Range Interpretation Comme nts POCT GLU (test code = 4055834280) 171 mg/dL 70-110 H Lab Interpretation (test cod e = 57064-2) Abnormal [facility] GLUCOSE (AUTOMATED)2023-04-09 16:45:10* Test Item Value Reference Range Interpretation Comme nts POCT GLU (test code = 6322168610) 171 mg/dL 70-110 H Lab Interpretation (test cod e = 66422-1) Abnormal [facility] GLUCOSE (AUTOMATED)2023-04-09 12:57:16* Test Item Value Reference Range Interpretation Comme nts POCT GLU (test code = 5927271538) 142 mg/dL 70-110 H Lab Interpretation (test cod e = 58609-5) Abnormal [facility] GLUCOSE (AUTOMATED)2023-04-09 12:57:16* Test Item Value Reference Range Interpretation Comme nts POCT GLU (test code = [id number]) 142 mg/dL 70-110 H Lab Interpretation (test cod e = 67010-6) Abnormal [facility] GLUCOSE (AUTOMATED)2023-04-09 02:02:28* Test Item Value Reference Range Interpretation Comme nts POCT GLU (test code = [id number]) 219 mg/dL 70-110 H Lab Interpretation (test cod e = 03060-1) Abnormal [facility] GLUCOSE (AUTOMATED)2023-04-09 02:02:28* Test Item Value Reference Range Interpretation Comme nts POCT GLU (test code = [id number]) 219 mg/dL 70-110 H Lab Interpretation (test cod e = 82056-9) Abnormal [facility] GLUCOSE (AUTOMATED)2023-04-08 22:21:39* Test Item Value Reference Range Interpretation Comme nts POCT GLU (test code = [id number]) 209 mg/dL 70-110 H Lab Interpretation (test cod e = 59521-0) Abnormal [facility] GLUCOSE (AUTOMATED)2023-04-08 22:21:39* Test Item Value Reference Range Interpretation Comme nts POCT GLU (test code = 8636349642) 209 mg/dL 70-110 H Lab Interpretation (test cod e = 68693-5) Abnormal [facility] GLUCOSE (AUTOMATED)2023-04-08 21:20:21* Test Item Value Reference Range Interpretation Comme nts POCT GLU (test code = 5496925146) 213 mg/dL 70-110 H Lab Interpretation (test cod e = 57307-8) Abnormal [facility] GLUCOSE (AUTOMATED)2023-04-08 21:20:21* Test Item Value Reference Range Interpretation Comme nts POCT GLU (test code = 9265860763) 213 mg/dL 70-110 H Lab Interpretation (test cod e = 94011-0) [facility]* Test Item Value Reference Range Interpretation Comme nts APPEARANCE (test code = 9141941572) Cloudy Clear A COLOR (test code = 0715959893) Yellow Yellow PH (test code = 4713706369) 6.0 4.8-8.0 SP GRAVITY (test code = 7360638148) 1.015 1.003-1.030 GLU U QUAL (test code = 1773027799) Normal Normal BLOOD (test code = 3286732539) 1+ Negative A KETONES (test code = 5238621540) 5 mg/dL Negative A PROTEIN (test code = 2887-8) 30 mg/dL Negative A UROBILIN (test code = 7061584903) 4.0 mg/dL Normal A BILIRUBIN (test code = 7924198824) Negative Negative NITRITE (test code = 3703042485) Negative Negative LEUK SARAVANAN (test code = 3199781822) 500/uL Negative A RBC/HPF (test code = 4950807992) 1 See_Comment [Automated [employer]] The system which generated this result transmitted reference range: 0 - 3 HPF. The reference range was not used to interpret this result as normal/abnormal. WBC/HPF (test code = 5001685242) 62 See_Comment H [Automated [employer]] The system which generated this result transmitted reference range: 0 - 5 HPF. The reference range was not used to interpret this result as normal/abnormal. BACTERIA (test code = 4598639920) Moderate Negative A SQ EPITH (test code = 7791649590) 3 See_Comment H [Automated [employer]] The system which generated this result transmitted reference range: <=2 HPF. The reference range was not used to interpret this result as normal/abnormal. Lab Interpretation (test code = 38847-9) [facility]* Test Item Value Reference Range Interpretation Comme nts APPEARANCE (test code = 5587433130) Cloudy Clear A COLOR (test code = 4529020349) Yellow Yellow PH (test code = 7308824927) 6.0 4.8-8.0 SP GRAVITY (test code = 8146272558) 1.015 1.003-1.030 GLU U QUAL (test code = 8848103208) Normal Normal BLOOD (test code = 2055200413) 1+ Negative A KETONES (test code = 0431000876) 5 mg/dL Negative A PROTEIN (test code = 2887-8) 30 mg/dL Negative A UROBILIN (test code = 3016741787) 4.0 mg/dL Normal A BILIRUBIN (test code = 6925184612) Negative Negative NITRITE (test code = 9827318340) Negative Negative LEUK SARAVANAN (test code = 8697213027) 500/uL Negative A RBC/HPF (test code = 1168934153) 1 See_Comment [Automated messa ge] The system which generated this result transmitted reference range: 0 - 3 HPF. The reference range was not used to interpret this result as normal/abnormal. WBC/HPF (test code = 5246367659) 62 See_Comment H [Automated messa ge] The system which generated this result transmitted reference range: 0 - 5 HPF. The reference range was not used to interpret this result as normal/abnormal. BACTERIA (test code = 5750525307) Moderate Negative A SQ EPITH (test code = 1427476043) 3 See_Comment H [Automated messa ge] The system which generated this result transmitted reference range: <=2 HPF. The reference range was not used to interpret this result as normal/abnormal. Lab Interpretation (test code = 61702-9) Abnormal [facility] GLUCOSE (AUTOMATED)2023-04-08 12:53:15* Test Item Value Reference Range Interpretation Comme nts POCT GLU (test code = 2808417194) 133 mg/dL 70-110 H Lab Interpretation (test cod e = 83698-1) Abnormal [facility] GLUCOSE (AUTOMATED)2023-04-08 12:53:15* Test Item Value Reference Range Interpretation Comme nts POCT GLU (test code = 0726770338) 133 mg/dL 70-110 H Lab Interpretation (test cod e = 60061-9) Abnormal [facility] METABOLIC PANEL (NA, K, CL, CO2, GLUCOSE, BUN, CREATININE, CA)2023-04-08 12:32:42* Test Item Value Reference Range Interpretation Comme nts NA (test code = 9220038315) 133 mmol/L 135-145 L K (test code = 1063180474) 3.9 mmol/L 3.5-5.0 CL (test code = 6519885419) 99 mmol/L 98-108 CO2 TOTAL (test code = 8555207660) 20 mmol/L 23-31 L AGAP (test code = 4759224958) 14 2-16 BUN (test code = 4356514974) 17 mg/dL 7-23 GLUCOSE (test code = 3208939701) 129 mg/dL 70-110 H CREATININE (test code = 9097308320) 0.70 mg/dL 0.50-1.04 CALCIUM (test code = 7396055399) 9.2 mg/dL 8.6-10.6 eGFR (test code = 1855249699) 80.7 mL/min/1.73m2 GARRICK (test code = GARRICK) [...] imaging tests). Lab Interpretation (test code = 75803-9) Abnormal [facility] METABOLIC PANEL (NA, K, CL, CO2, GLUCOSE, BUN, CREATININE, CA)2023-04-08 12:32:42* Test Item Value Reference Range Interpretation Comme nts NA (test code = 6467054651) 133 mmol/L 135-145 L K (test code = 1255169225) 3.9 mmol/L 3.5-5.0 CL (test code = 0620233776) 99 mmol/L 98-108 CO2 TOTAL (test code = 3120506222) 20 mmol/L 23-31 L AGAP (test code = 8079023866) 14 2-16 BUN (test code = 6151730571) 17 mg/dL 7-23 GLUCOSE (test code = 8311698323) 129 mg/dL 70-110 H CREATININE (test code = 7881870513) 0.70 mg/dL 0.50-1.04 CALCIUM (test code = 6595394431) 9.2 mg/dL 8.6-10.6 eGFR (test code = 4378712231) 80.7 mL/min/1.73m2 GARRICK (test code = GARRICK) [...] imaging tests). Lab Interpretation (test code = 00799-9) [facility] / [id number] 11:08:16* Test Item Value Reference Range Interpretation [...] the indications. Lab Interpretation (test code = 63845-8) [facility]normal [facility] [id number] 11:08:16* Test Item Value Reference Range Interpretation Comme [facility] APTT Patient (test code = 3173-2) 29 See_Comment [Automated messa ge] The system which generated this result transmitted reference range: 26 - 36 Seconds. The reference range was not used to interpret this result as normal/abnormal. Lab Interpretation (test code = 48762-3) Normal [facility] / [id number] 11:08:16* Test Item Value Reference Range Interpretation [...] the indications. Lab Interpretation (test code = 35854-2) [facility]normal [facility] [id number] 11:08:16* Test Item Value Reference Range Interpretation Comme [facility] APTT Patient (test code = 3173-2) 29 See_Comment [Automated messa ge] The system which generated this result transmitted reference range: 26 - 36 Seconds. The reference range was not used to interpret this result as normal/abnormal. Lab Interpretation (test code = 37759-9) Normal [facility] WITH [id number] 10:54:29* Test Item Value Reference Range Interpretation [...] 33.7 g/dL 31.6-35.1 RDW-SD (test code = 60282-4) 40.6 fL 39.0-49.9 RDW-CV (test code = 788-0) 13.0 % 12.0-15.5 PLT (test code = 777-3) 262 See_Comment [Automated messa ge] The system which generated this result transmitted reference range: 166 - 358 10*3/?L. The reference range was not used to interpret this result as normal/abnormal. MPV (test code = 58422-0) 10.0 fL 9.5-12.9 NRBC/100 WBC (test code = 3692595135) 0.0 See_Comment [Automated [employer]age] The system which generated this result transmitted reference range: 0.0 - 10.0 /100 WBCs. The reference range was not used to interpret this result as normal/abnormal. NRBC x10^3 (test code = 0827767754) See_Comment [Automated messa ge] The system which generated this result transmitted reference range: 10*3/?L. The reference range was not used to interpret this result as normal/abnormal. GRAN MAT (NEUT) % (test code = 770-8) 63.3 % IMM GRAN % (test code = 8065902153) 0.60 % LYMPH % (test code = 736-9) 26.7 % MONO % (test code = 5905-5) 7.5 % EOS % (test code = 713-8) 1.4 % BASO % (test code = 706-2) 0.5 % GRAN MAT x10^3(ANC) (test code = 1630485047) 7.62 10*3/uL 1.88-7.09 H IMM GRAN x10^3 (test code = 5445895503) 0.07 10*3/uL 0.00-0.06 H LYMPH x10^3 (test code = 731-0) 3.22 10*3/uL 1.32-3.29 MONO x10^3 (test code = 742-7) 0.90 10*3/uL 0.33-0.92 EOS x10^3 (test code = 711-2) 0.17 10*3/uL 0.03-0.39 BASO x10^3 (test code = 704-7) 0.06 10*3/uL 0.01-0.07 Lab Interpretation (test code = 90539-9) Abnormal [facility] WITH [id number] 10:54:29* Test Item Value Reference Range Interpretation [...] 33.7 g/dL 31.6-35.1 RDW-SD (test code = 58812-6) 40.6 fL 39.0-49.9 RDW-CV (test code = 788-0) 13.0 % 12.0-15.5 PLT (test code = 777-3) 262 See_Comment [Automated messa ge] The system which generated this result transmitted reference range: 166 - 358 10*3/?L. The reference range was not used to interpret this result as normal/abnormal. MPV (test code = 90944-5) 10.0 fL 9.5-12.9 NRBC/100 WBC (test code = 1720459508) 0.0 See_Comment [Automated [employer] ssage] The system which generated this result transmitted reference range: 0.0 - 10.0 /100 WBCs. The reference range was not used to interpret this result as normal/abnormal. NRBC x10^3 (test code = 1303496793) See_Comment [Automated messa ge] The system which generated this result transmitted reference range: 10*3/?L. The reference range was not used to interpret this result as normal/abnormal. GRAN MAT (NEUT) % (test code = 770-8) 63.3 % IMM GRAN % (test code = 1607098568) 0.60 % LYMPH % (test code = 736-9) 26.7 % MONO % (test code = 5905-5) 7.5 % EOS % (test code = 713-8) 1.4 % BASO % (test code = 706-2) 0.5 % GRAN MAT x10^3(ANC) (test code = 5176076457) 7.62 10*3/uL 1.88-7.09 H IMM GRAN x10^3 (test code = 6198040147) 0.07 10*3/uL 0.00-0.06 H LYMPH x10^3 (test code = 731-0) 3.22 10*3/uL 1.32-3.29 MONO x10^3 (test code = 742-7) 0.90 10*3/uL 0.33-0.92 EOS x10^3 (test code = 711-2) 0.17 10*3/uL 0.03-0.39 BASO x10^3 (test code = 704-7) 0.06 10*3/uL 0.01-0.07 Lab Interpretation (test code = 15087-0) [facility] [id number] 10:39:00* Test Item Value Reference Range Interpretation Comme nts ABO & RH (test code = 20) B POSITIVE IAT (test code = 1185) Negative [facility] [id number] 10:39:00* Test Item Value Reference Range Interpretation Comme nts ABO & RH (test code = 20) B POSITIVE IAT (test code = 1185) Negative [facility] GLUCOSE (AUTOMATED)2023-04-08 02:00:38* Test Item Value Reference Range Interpretation Comme nts POCT GLU (test code = 8397773653) 141 mg/dL 70-110 H Lab Interpretation (test cod e = 75519-0) Abnormal [facility] GLUCOSE (AUTOMATED)2023-04-08 02:00:38* Test Item Value Reference Range Interpretation Comme nts POCT GLU (test code = 0916402067) 141 mg/dL 70-110 H Lab Interpretation (test cod e = 19190-7) Abnormal [facility] GLUCOSE (AUTOMATED)2023-04-07 20:55:38* Test Item Value Reference Range Interpretation Comme nts POCT GLU (test code = 9166831825) 169 mg/dL 70-110 H Lab Interpretation (test cod e = 17913-1) Abnormal [facility] GLUCOSE (AUTOMATED)2023-04-07 20:55:38* Test Item Value Reference Range Interpretation Comme nts POCT GLU (test code = 8404188368) 169 mg/dL 70-110 H Lab Interpretation (test cod e = 65212-3) Abnormal [facility] GLUCOSE (AUTOMATED)2023-04-07 16:42:07* Test Item Value Reference Range Interpretation Comme nts POCT GLU (test code = 4327747323) 218 mg/dL 70-110 H Lab Interpretation (test cod e = 32548-2) Abnormal [facility] GLUCOSE (AUTOMATED)2023-04-07 16:42:07* Test Item Value Reference Range Interpretation Comme nts POCT GLU (test code = 3208307965) 218 mg/dL 70-110 H Lab Interpretation (test cod e = 23782-4) [facility] 13:18:00* Test Item Value Reference Range Interpretation Comme nts POCT GLU (test code = 0844904657) 117 mg/dL 70-110 H Lab Interpretation (test cod e = 29998-5) [facility] 13:18:00* Test Item Value Reference Range Interpretation Comme nts POCT GLU (test code = 2263927146) 117 mg/dL 70-110 H Lab Interpretation (test cod e = 89052-5) Abnormal [facility] GLUCOSE (AUTOMATED)2023-04-07 02:03:47* Test Item Value Reference Range Interpretation Comme nts POCT GLU (test code = 4389106725) 197 mg/dL 70-110 H Lab Interpretation (test cod e = 86978-2) [facility] 02:03:47* Test Item Value Reference Range Interpretation Comme nts POCT GLU (test code = 9006388022) 197 mg/dL 70-110 H Lab Interpretation (test cod e = 73588-4) [facility] 20:50:57* Test Item Value Reference Range Interpretation Comme nts POCT GLU (test code = 9649672779) 168 mg/dL 70-110 H Lab Interpretation (test cod e = 59993-4) [facility] 20:50:57* Test Item Value Reference Range Interpretation Comme nts POCT GLU (test code = 8149894623) 168 mg/dL 70-110 H Lab Interpretation (test cod e = 81791-8) Abnormal [facility] GLUCOSE (AUTOMATED)2023-04-06 16:59:30* Test Item Value Reference Range Interpretation Comme nts POCT GLU (test code = 8915133092) 195 mg/dL 70-110 H Lab Interpretation (test cod e = 83959-8) [facility] 16:59:30* Test Item Value Reference Range Interpretation Comme nts POCT GLU (test code = 6876177624) 195 mg/dL 70-110 H Lab Interpretation (test cod e = 70409-3) [facility]-06 16:59:30* Test Item Value Reference Range Interpretation Comme nts POCT GLU (test code = 6301652998) 195 mg/dL 70-110 H Lab Interpretation (test cod e = 09163-3) [facility] 12:36:01* Test Item Value Reference Range Interpretation Comme nts POCT GLU (test code = 5366507091) 122 mg/dL 70-110 H Lab Interpretation (test cod e = 05465-9) Abnormal [facility] GLUCOSE (AUTOMATED)2023-04-06 12:36:01* Test Item Value Reference Range Interpretation Comme nts POCT GLU (test code = 8974330288) 122 mg/dL 70-110 H Lab Interpretation (test cod e = 45893-9) [facility] 12:36:01* Test Item Value Reference Range Interpretation Comme nts POCT GLU (test code = 8245814357) 122 mg/dL 70-110 H Lab Interpretation (test cod e = 80828-9) [facility] 00:41:43* Test Item Value Reference Range Interpretation Comme nts POCT GLU (test code = 7078207600) 181 mg/dL 70-110 H Lab Interpretation (test cod e = 52323-8) [facility] 00:41:43* Test Item Value Reference Range Interpretation Comme nts POCT GLU (test code = 1613189757) 181 mg/dL 70-110 H Lab Interpretation (test cod e = 87856-9) [facility] 00:41:43* Test Item Value Reference Range Interpretation Comme nts POCT GLU (test code = 7088764679) 181 mg/dL 70-110 H Lab Interpretation (test cod e = 05766-2) [facility]23-[facility]-05 21:26:41* Test Item Value Reference Range Interpretation Comme nts POCT GLU (test code = 4615380072) 137 mg/dL 70-110 H Lab Interpretation (test cod e = 62809-4) [facility] 21:26:41* Test Item Value Reference Range Interpretation Comme nts POCT GLU (test code = 1809889824) 137 mg/dL 70-110 H Lab Interpretation (test cod e = 21513-8) Abnormal [facility] GLUCOSE (AUTOMATED)2023-04-05 21:26:41* Test Item Value Reference Range Interpretation Comme nts POCT GLU (test code = 4828468744) 137 mg/dL 70-110 H Lab Interpretation (test cod e = 69593-3) Abnormal [facility] GLUCOSE (AUTOMATED)2023-04-05 17:02:13* Test Item Value Reference Range Interpretation Comme nts POCT GLU (test code = 1981970260) 149 mg/dL 70-110 H Lab Interpretation (test cod e = 79841-2) Abnormal [facility] GLUCOSE (AUTOMATED)2023-04-05 17:02:13* Test Item Value Reference Range Interpretation Comme nts POCT GLU (test code = 7794640027) 149 mg/dL 70-110 H Lab Interpretation (test cod e = 43995-1) [facility] 17:02:13* Test Item Value Reference Range Interpretation Comme nts POCT GLU (test code = 6970156464) 149 mg/dL 70-110 H Lab Interpretation (test cod e = 27393-7) [facility] 13:05:58* Test Item Value Reference Range Interpretation Comme nts POCT GLU (test code = 9415202553) 138 mg/dL 70-110 H Lab Interpretation (test cod e = 99125-0) Abnormal [facility] GLUCOSE (AUTOMATED)2023-04-05 13:05:58* Test Item Value Reference Range Interpretation Comme nts POCT GLU (test code = 2705781795) 138 mg/dL 70-110 H Lab Interpretation (test cod e = 40481-1) Abnormal [facility] GLUCOSE (AUTOMATED)2023-04-05 13:05:58* Test Item Value Reference Range Interpretation Comme nts POCT GLU (test code = 8801415104) 138 mg/dL 70-110 H Lab Interpretation (test cod e = 85424-6) Abnormal [facility] GLUCOSE (AUTOMATED)2023-04-05 00:50:15* Test Item Value Reference Range Interpretation Comme nts POCT GLU (test code = 2521713165) 216 mg/dL 70-110 H Lab Interpretation (test cod e = 01962-4) Abnormal [facility] GLUCOSE (AUTOMATED)2023-04-05 00:50:15* Test Item Value Reference Range Interpretation Comme nts POCT GLU (test code = 9571632070) 216 mg/dL 70-110 H Lab Interpretation (test cod e = 95390-8) Abnormal [facility] GLUCOSE (AUTOMATED)2023-04-05 00:50:15* Test Item Value Reference Range Interpretation Comme nts POCT GLU (test code = 5095321269) 216 mg/dL 70-110 H Lab Interpretation (test cod e = 64178-1) Abnormal [facility] GLUCOSE (AUTOMATED)2023-04-04 22:46:04* Test Item Value Reference Range Interpretation Comme nts POCT GLU (test code = 6068329797) 145 mg/dL 70-110 H Lab Interpretation (test cod e = 55243-8) Abnormal [facility] GLUCOSE (AUTOMATED)2023-04-04 22:46:04* Test Item Value Reference Range Interpretation Comme nts POCT GLU (test code = 5885001306) 145 mg/dL 70-110 H Lab Interpretation (test cod e = 88134-8) Abnormal [facility] GLUCOSE (AUTOMATED)2023-04-04 22:46:04* Test Item Value Reference Range Interpretation Comme nts POCT GLU (test code = 0315765875) 145 mg/dL 70-110 H Lab Interpretation (test cod e = 40894-5) Abnormal [facility] GLUCOSE (AUTOMATED)2023-04-04 17:15:21* Test Item Value Reference Range Interpretation Comme nts POCT GLU (test code = 7901390320) 164 mg/dL 70-110 H Lab Interpretation (test cod e = 96364-9) Abnormal [facility] GLUCOSE (AUTOMATED)2023-04-04 17:15:21* Test Item Value Reference Range Interpretation Comme nts POCT GLU (test code = 3492532374) 164 mg/dL 70-110 H Lab Interpretation (test cod e = 96032-2) Abnormal [facility] GLUCOSE (AUTOMATED)2023-04-04 17:15:21* Test Item Value Reference Range Interpretation Comme nts POCT GLU (test code = 4939127368) 164 mg/dL 70-110 H Lab Interpretation (test cod e = 87210-5) Abnormal [facility] GLUCOSE (AUTOMATED)2023-04-04 13:13:28* Test Item Value Reference Range Interpretation Comme nts POCT GLU (test code = 4924239261) 127 mg/dL 70-110 H Lab Interpretation (test cod e = 19638-0) Abnormal [facility] GLUCOSE (AUTOMATED)2023-04-04 13:13:28* Test Item Value Reference Range Interpretation Comme nts POCT GLU (test code = 0685476631) 127 mg/dL 70-110 H Lab Interpretation (test cod e = 14886-2) Abnormal [facility] GLUCOSE (AUTOMATED)2023-04-04 13:13:28* Test Item Value Reference Range Interpretation Comme nts POCT GLU (test code = 9570769474) 127 mg/dL 70-110 H Lab Interpretation (test cod e = 80424-3) [facility] [id number] 22:58:22* Test Item Value Reference Range Interpretation Comme nts Case Report (test code = 9777928039) Surgical Pathology ?Case: [id number] ? Authorizing Provider: ?Natalie Ridley MD ?Collected: ? 03/31/20231516 ?Ordering Location: ? ? [facility] OR ? Received: ?03/31/2023 1526 ? Department ? Pathologist: ? Sandra Tyler MD ?Intraop: ? Sandra Tyler MD ?Specimens: ? 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 Final Diagnosis (test code = 8724486600) i4djtHNfWWCfw0pwUYYyw GFuZzEwMzNcZnRuYmpcdW MxIHtccnRmMVxlcGljMTA 2DGNeKH5ljVjuiUc1nEod LDQqerT5dFMwSYcbf7gcP WI1m1pzkwcaHFEnRHpsZl 9udHRibHtcZjAgQXJpYWw 4bZ35IKWfwQ6otUExLSz5 XHBhcGVydzEyMjQwXHBhc BBoeKV8CEDlSS0pqiylSY vaTCezNDXwggB3VEVfgWY gJ5XvDWUcIM0hxfmaXER8 NOpvNCBzUKX2FkSnDGFtc 2Neaoc8JvTgeGKhPTuxtN FpblxmczIwXHBhciBBLiw cDy9cXf4LMGXmZ2UHRoVz ZVIFNvJYLgBqEfOgKl8GX HVATJ0TFugcB74ZBVPGEB 9NWTpccGFyXGxpMzYwXGZ aHRR3VYewuC3sZqNbUHOp UE3aFYWCNDTOIMMTPeGDL WBIX4TVRfVBFd8PACadZ6 7LG3wGWGOSSMPSLGWHZEQ QQQMWIGSOAvrNZW1rUUQD YDLGN12QDP6SAUoxGMXba IsfABCxNGmpwT5jDHWhvg mjWKKmYVZ7HkV4UEMCo7U yxZDtGC2dKZF0JWKex01c AB3ZBFG5YdM4FrHfLCy8F lSuUF5weYDgDJFvtw56QQ U7HuArn7M4MOBaKbMvDII tOR6laEznBZCeCF4sVSQn A2efqV4nevo2EaKtNDHsS xX1GRNnvmS4Ysk6QMWrSK gqt9ark8VwX8WooRKxsYe 1k4idPTKgRbV7oKPvSJyj S2wtfpRfoXSzJRIiDQo2r UmhNfYsZRHfc5ruyzKyIt NoYXJzZXQwIENhbGlicmk 1wU44ERMxhC2xuGMvDMox jkFuWlZ4HTvkQBJdFzK7H QRfgWGwYEBpG6cwCVKlWL wySNLeKXxtvPMjBQT7rZb xz6U2rZGukWTpbPscSfBo UaZfKKXJm8OjEQc9fOeeL 1VcGPOhCtT6bVDlWISgYA exAYQwTEBiilW2bD86OHk vswI5hZCmh7Tux78rx019 vL8ctNVlKJI0JWOxRKZdz FIoXHOvHMG3EGMsqINaK4 hsXWUqKF0jyaonWSltIWp jDDRlvXX2ZSUmrHGlK1Ja EZMwGIjiHZXdmyy8WeRfF x2ppSQfgYmcIUoxb8sdv4 lmxCDfWqp2ELFaRtJeTww nLOdyy8Jot4krBFDikm3o WDR8dNFdoZaku2I2mDCwO TQgtWUlohYpHIRpHpY4LQ hnZQ8sdx26BRGrHJB5fv9 ybGNccGdicmRyaGVhZFxw B6XoLLFfi890CNXyN3GoG VLat5V5tcEbLcHjQPAfbQ Y6cpI4FXMfPRv4mPQbamA 5qiFolZLcI8doxX6vOCQt QZ7xfcwlh9ukJNnuFPegE MUxzUG9hsD9KORvdTAqN8 OsnI1wWAYxHAosBYPtumn 4LmFsBg3hoNWepEldZMdg YmtwYWdlXHBnbmNvbnRcc GduZGVjXHBsYWluXHBsYW luXGYwXGZzMjRccWxccGx veR0pGxWwDzLuKAfqKY8e VNWjJ6yxvIXgRRZwVIIpH 2xqKrOdkY4fwRiiSXgfNu JcZnMyMFxwYXIgSSBoYXZ lIHBlcnNvbmFsbHkgcmV2 fBD3AFKlCQtnHMJnEZTzd OCiea3hcFftOKUbJO0uKA FncmVlIHdpdGggYWxsIHN 0YXRlbWVudHMgbWFkZSBi eSByZXNpZGVudHMsIGZlb Qfpg1Ilu4AhhMI3eJ1gt8 yss8VbBOExlVB2QE72gdO 1nR0oMEIdHQ5eGNGbDL9w nAUctAJqASHct01ifWguc yByZXBvcnQuXHBsYWluXG YyXGZzMjhcbGFuZzEwMzN caGljaFxmMlxkYmNoXGYy MJjfQ3jsWxHdPfBdEReqY XJ9fQ== Final Diagnosis Comment (test code = [id number]) o1wbyHXdALBdgMDpYOXqG 4pjfxKyVMDtgMWmD9Idgu caYGymQO2fNP7bnTpwzOL raXHqXRCrRzZau9bmc131 rWXpn3agCCAFqmehjLl8p CcmE54dp0H7ZepsD9fzEU HbOGnupmTaguV9ZNHozZY kSVj6ELPwaOMcxgWtRoAb BZBdaREdgKS7TTLuNX6lt qtpHDiqHIswEPMbftL1TQ JelZAcJ7EcUFIkZM1rouc nKEZ5XVquXHEiZJH3WjRo XPGah9Euboe1VuBgmWTwJ FxwbGFpblxmczIwIFNlY3 Syj40zMJBlr1nhVy4kMDL pbnZvbHZlZCBieSBtZXRh u5BjoCezGDTlXG2kM1CeM 9kgh64sWBwysIMoMKQgfV GuebLbq2ItpW9bfBBsIFI przQvCLQpFU7iRTGeJWAr WTubDRUuv56xgzZkgYFef BFrETZsVTWoMHD7F4FimU qyLApeKoWtLW86cPH9aA0 fMAT9iNHrZQ9aqw5ij8Sc fZ83rzPvIWWtyEz9PM3fe DPncRPnVO61X6pbfSymTJ MdGJLfx0SfG1XqIdXzCz4 srPWowmRmnAGkU1M6nfUh SZWgXHGqt6Mcic5uwQyvw BFhwZBffX9jnGApAYCxIR Vxk04gFfVVkYGhIDWsMQD pWRD4qP7ufODpaLapLTNx sGibKVanXDoezz64rq5ik 2CwwyB2WWhcQ4kmo94noI qqJBpkLCYqz893tDgxJT6 [id number] jkZiiyVvpMZ3o7BdMcTLE 1J7kKBrGPArkKa5y9NgNu JsnJy5scAtKUWoBRDna7A bAC1wHEMiuptsUROiYufx iT3bjH8ygJqjsD1glFGoe OP9mvksCVToj5ScKCN0BP hjnRvuASR4yC4iCKTihSv fIYZwxH2vc6DkCTHlASA9 iu5qThRxd7MjeJj5uGX2K GZvciBDSzcsIEdBVEEtMy wgRVIsIGFuZCBQUiwgYW5 dFLWzZDGuNGcqxAz9WULv t4YoK2hbOUbzNZRBWEajR DQjZCQPQSZoSI1cEATzCK Yfq6GwtL7yr9xmKjIqJBF 9oKDfegTlmuQidC4txK9a mGecbh43jKQrJMY7xSRcn bEuXZCvMZXfu9Vic8kbDX 6vKAKcWYHicJCfpteodT8 uXHBhclxwYXIgQnJlYXN0 EBUmy10zxqyrvpLlrA63a s1cyCHryaQtk5DeNKNhPO Myy9WqFNGaq18nNstpJ8x lJaJtx0f6gLV8dRTwMf9t fS55eR8zNBFec6MkeZGfM VClFJEpkWVcTXMzG6WgO5 lmaWVkKTpccGFyXHBhciA pWXchJOFCXDOmf9k4kIEm MFAdQLWqAQY6oEOoc0w9r NV2SMBmfDVgv5JcQ1ElbG UpnA4eUNEmiIPpghQlrQU zfeZmeEHbsyznC8rbDRYk OBJcQBmuwoPiXJVdh7DeP GLkNwDjBT4rR2ujWCXnTB QcHM32YAHrNDwaL78yuUZ vbCBjZWxscyBhYnNlbnQu XHBhciAgLSBcYiBQUiBwb 2FugTp4GYfhLKJmvhMudW i8GHwxxZlhBWHtRYD9xJ6 qIAPzgMhjGK4yAJXhYIQm GI55I0hgCNRmd0ZnoK9wg mdccGFyICAgIEFsbHJlZC ObT77tFQC8BTegFuE5XAc ccGFyICAgIEludGVybmFs LXLoijXff4dbX6GthRQbP VYePE08MyfzBDXfUT7iSJ QaXWDjVFDuizD9BH1lV4A 7qTExLPyvXhblNSJhKM4k BZZ5tJ9hULPhsMtyWV6cr YFqDC4zjNUkx0GxnL2xko dccGFyXGNmMVxwYXIgQWx zPYT0fMVtalAyHAPkqqQy z0plRECsq4auQJAryj2vf bqvjMMtvcFaM8Vbzgh9hQ 4gXHBhclxjZjBccGFyXGZ zMjIgIFxwYXJcZnMyMCBF Ak1DWmVNaXT7zSVuvYCtN KL6OUJbdP7vATO9l1fuHh XmqgMwjL13fp1zduquaSB 9qMQwZBXrSDnun4n7aLNn r13sN5ftfsEsLXCccYxxg 3ByGNHdZSZRTHHii05kPJ MBINZppnKpTKWvF6ivgvA wARNwJuKCYNWxWZMyhd88 ZWQpIHdpdGggdGhlIFVsd RFsLzkkbrEHeqe2GFZsFF wgREFCIERldGVjdGlvbiB LaXQgKFZlbnRhbmEpLiAg MYVpox8dxqdnaYLwsmGcM JSefdEtCQ0wZMTwc4o5hO IhWNRdnbScy0uyNSTqULB 4s6WrXyBtMFqmJXKqpyYj xu4mjdNxMJ4qMLHhaDGyn DCwlYIpSEOzQaPhjtI3TQ aiDLZ8JZPyEGEqh6FicI8 mLHJxIDILJJ6ME6MJPGt2 aWRlbGluZXMgdXNpbmcgZ m6fbNWbeU2hNsn9OGXogQ FjEHEvxF0eYL2mEEHePPS ss8XuhZyyuuTlZKTihzuo YXIgVGhlIGNyaXRlcmlhI QIsUMHcDk9kZIOsmO1nuS odOwKJSm6FWsGXrF40bx2 kkYLsuGN8ezecxyFuvCg1 foKubgRgoY3yLHKxr1UtF E7xXDD4iWXwZYPjPDUBWU AvQVNDTyBndWlkZWxpbmV iXllxHZStsDOjVXNaz2s4 oEOiHPukRVD8IOUpfXafk bVxeeTwpJCwkJO4hiUkSU wgbmVnYXRpdmUgbGVzcyB 0aGFuIDElLlxwYXJccGFy YPErzGJoHLIFM67gKIdvk ZLrFVEcuvw6kd23OMp1rq BhZGRmdDNcdHJwYWRkZmw zXHRycGFkZGwxMDVcdHJw YWRkZnIzXHRycGFkZHIxM DVcdHJwYWRkZmIzXGNsYn OrzoSqVnDmbk0ttwGcD9d pbcPlxGeqhdBsiw2rBTup aXDhUUDpFWXtKTDlp66pD XRoZpNwqzSyLvKhhg3yvx WkP5m9HQS1HDp1CVBrSlZ mG7atzHnxBYOeo9tvFCUm WVE5RhbhXMyflQRuJyBcL 7rpqzUekUcycnRzae0qGP oxuIHgQJDoLAXqRNEbt84 dLHRqRrIirwOgBqIvnb4f jaNcQ6ydoqIcAxxfboNxk z6sLNdezFTykbVowWQcS2 gheGDBgTS0nRZvK3v0J4e rgUy0IvC9SSFofYk7VOUx MlxwYXJkXGludGJsXHFjI PWPB0IUIdECL35eK7CQKr LhICCZTPzdI9TtpHsbZGS kXGludGJsXHFjIFBFUkNF ErHBR4PpDM6IRBJXLfEjO 1CGXLOgD0RbaTekudShrS uma5lxdFFvt2TtwREnEFM bVoCvNFZkeYGiIJOeI0z1 xlTuZPZyLRZ2WSRgcVJuA SClI3p1pmQqELUaFEQ3YK KkqFArQFKpI5bhpUVuZKG 6LIQkROKpl68aBHVcBdNj zszbAgAbss6eoeXfH4jza lTjouwgitTyln4aAIoqyP XuOCAtPFArOEWrr55yDRK fmzGovECgsUkqjKR1d6qp QBSiR0frgNcVeQL9zHNqR aNeB4EhaEq8TzJ6YXBaGc UbayRdYuUybt3lslPwA8g oubBasMxjmcOdnq7zIZci fRVnEUYlWSWcFDJxz27xS SUmEbUrloDuVeTtqr6oys FaZ4w4GPQ4ZWl0ZIOzCuD eF4pdjGjtHAVtg5bkOPFr NAF7WmsmOIitoDu7NaPac GFyZFxpbnRibFxxYyAwXG NlbGxccGFyZFxpbnRibFx bDiYiZMNqjQmrtN72Kyuz cp92YGZdi6zyNBBbhKQpE YL8U6p7qzAyGQDxzSMqeG WmXNUiyLXcHXa8sgTgLUG mcjNcdHJwYWRkcjEwNVx0 seIjAJXeWmGxU4taniPmj FpkmrBvfc2dVIugwYMiTF XnUMSfRKVay34qPNGnLpL oniSyCoIdai0bvgIeJ2qx yuPfGfezlkEdht2vKUmtc PNyywSdnSFrN2qldGBDrO M7iTCuG8h5G7twwDr7LoZ 3MGWemWh3PZH3ZgvymKWt BKY8EFLwPBOsx99jSQVfL rVtuqvyZmDehw2llsSaO5 upxnXobzrsntOjak8mXSk hwNCgHMOnLMZmHJYip30r CJTptmGtxWXfoPxjdDS1z 2alKRCrF9fydIqSyPA7pI IhYbIrA2YufNb1ISVtPMS idqQhrC40GwhnlBQaMNkn PDcjBKWiamCsbE59Glndw NMtHISnRVMxdGylrC43Th ayye30DPHap4ziUSFxfAQ nLLM9X7x1bfVbDXHahBUl yPSbCLWoqPCaGWd4toXdO GRmcjNcdHJwYWRkcjEwNV y9cqTeCXWtTtWaU3lhrmZ ncFnaurAcui7rPAgcqWMg UAPiYBRcNNAtc04fAUWmT aOaolXcTgSgzs1pdjDtT7 pjavHwQgdjsjScpk1aWGr rsLKcuyFukNRhL1rinZCX hJI3xWRbJ8z8Z9mdxEl8U yN9CKAhkYg8NUE1ZuouvC JaWFB5QWAzHCOxu08gMPM lIcJkoirqYhOtoq1ucoPi U6eelhQemybqwuIusu3aQ VxjbGJyZHJiXGJyZHJub2 5lXGNsdmVydGFsdFxjbGZ 8n4gcIMJoO8jbfExXlUP6 pXJmRdFrY6QyhFd8JZYfR MFpakKiaG08KmhakSHcRp gkEZatQTWbkrRetH65Uer pzYHnFL3cMRKlX5SajEsp elYlzKglf8lyfTGlg7Owu HJwYWRkZnQzXHRycGFkZG MgE8k0mhOoDKVcRHR8PNQ etSKkYEWmM3z5ziAcBPAd UFF0FNRrwWKrRPPkK6xvn BPqRLN2XPIoVOEld72tFC BhOuEoimrqUiPalv9xnuK hS2qfrzTijifgdwQtcy2u ZVxjbGJyZHJiXGJyZHJub 25lXGNsdmVydGFsdFxjbG X3c6zqAXTqV1oxvJxRiBU 8uBZbPtGeB5WdlMm5WuJ3 BLPtCzWjxlBuBhSsci0tu yXeA2stulSdxFbkwpBbld 9uZVxjbGJyZHJyXGJyZHJ oz08mTYCfGvFjniBuSlPa pf7qjmDnC2z1VFB2RKo4J BQjOxIcY0zjdAfaGLRnt5 czCPHwMXN2GtveRJcdzOn 1MzJccGFyZFxpbnRibFxx YyAzXGNlbGxccGFyZFxpb fEudGxeKaIfWR3pDbZgP8 AgpEoexyWsnBwvv4csjDU ql4EidEOoQMRqYqLmHPAk sNAjYLTmV3o6hmBfZSFfV RN9FGXayCVsZKMcE9s1zc ImDAFyVYE4ZJGeqGHrIHV nJ4thbSRrMSX1OEWfZOKk f48sKDKcPtIieagxCpDoz h4scnBlX6nlqxMyvbgqom Xgyc4aJTuqbQGoAOWePHQ cQEIyd31vWTIdneHpcRVu iTizeCD3b7qsTPIcT9ixx IbOrMK4xJFnGiSlG8KuqK l4RgK1OYFeOgFlhbBdVxQ xvm1fucHbL9zrlwTmzDga zpKknk5yXKxstDXwFUIzL QOnFTVkj12iRMPuRuEwzo JhJgCdyw2xpiGnE2l6SBZ 2HGm0IOXaLgLpD6cgoHaf TFYjy0jfPZMjTUX8DamiZ XzwpGd3CsWdwSIsCSqimk UkvWgfRbE2BOZwjZpkdFG oRCcswxMubRelAoNjCh13 BfOvJ8QlgUpubpKpbMhuk 5phyFCdl6UanTPviLVkp0 m8dsTnUSVwiTJcrRLkEZG kZmwzXHRycGFkZGwxMDVc dHJwYWRkZnIzXHRycGFkZ HIxMDVcdHJwYWRkZmIzXG KpMwGkzgQbJcWykv9dqhX xB0virmRraXgqhvKlil7l ZVxjbGJyZHJyXGJyZHJub 25lXGNsYnJkcmJcYnJkcm 2jxtTcC8d6EUB8TAb8RTF vMzPoJ6ksvLoqSSHku8cc HLAcJTL1CbhpOPowkUSfA qOkO7ookbRlqInfjkBsen 9uZVxjbGJyZHJsXGJyZHJ uh51qYEYfAfHffdEpSxRq kc4ksqAvU2fbutXrVynwe eIstm8zBFbdtRDkysTnfM LaJ8kyuNOMsJD2lREvI7f 1S2vcwKn7KzK9RKHvyNy1 ODUzMlxwYXJkXGludGJsX ZQbMTReO3KewFaaRIGiQF haiOBsQZNkQE96CdXwF1D kgAwnjfCgfTnna3iwoIDd PCqxVCDddVSup3FkeNRiY WRkZnQzXHRycGFkZGZsM1 i8qcBcPKUuMRW0PDKdaKP bPEXfR4s8ejXlVAKoFJB8 XCJsxILpUAMxE8sdtKHjZ VH4FYRnFSKmr28cEPQiTd EhigzyJtMixk5buqHjR1x zdbDskpqovfQqmk8cZRrb mBFjUPOzJBXkJYNij13pS RMfqeJouHJqlLorbOQ1p3 tfQQSaY9pszTfOvBK7cPV vRiJnQ6ZjfRr5XdC9KTDi XdKcehYyJgZyci9rpyCaV 3gmumXbfCbngiAdeu2aKI noaIKwOFKcSAEuTYMwk77 fHRNfDsSiliUoSsTtol5g aeXlB0p5FGN0NAy0LZOrI aYgW2glpTcqUXOzj4nxZK UgOJE2EkayIYwovMe1BdU ccGFyZFxpbnRibFxxYyBJ WwTXKhCEOHcbF6CPMbWbZ ElTKVxjZWxsXHBhcmRcaW 46AubllKDsER7QLC3OJLR CWF3MIGVHK3jUPIEKFKoy S9DghQuakmKdtWtsc2tra CBdr6MbiZEiTBPmRyVdZH UbhCTnGCKhZ9s3knQeBIU lPXF1NVXbyGHxMVSwI3e3 mnIrXGRwKIM1NIGddTHlH XAqB5mqqIYjPYA1XUMiPP Gba66uBINqPqGojwstLlV qol1igwIxT8odzoXpfjgs vkChob8pWAqolJTeKXGxG KJsXBQuk42iDAOyjsOiyF EjfRcnxJK4v4pdSWGfM1u loPzIlNU7yZNaDeBuW3Yp dCs6OaN0BDLiOyUmvsVkO kHrza6wbhExG2djjqWmvM mwpuAjmr5vMTlovAGcPGR uZHWhXZKpg18oVGMxOgUi hnBpExVvqu8cbbFaQ8p3B VC2KIu6HJOlMlDqJ8mftR mrCDIgq5bzFXNzVKE1Ovf cZHanoKj4LhBwpATbYNhu bnRibFxxYyAwXGNlbGxcc GFyZFxpbnRibFxxYyBOb2 1xJYStiRkduO71Auvwcv5 6VOEjt9asFDZnzBXtTXR0 L4l4ptUdFROrpCXtnYQhY CGrmENmVKp9ghZeUHRppr TiuBRoPGHweuMpRXs8fiI yGKUpVdLsD6jahxXwzXcf aeXhjj2lSAejsELpKOUeE WLkFVQqt96xMSFlEbXwpa OdWjTawn8lewYeH6rxobG yLszikbNrcp4aJRwpqVPq raCfoWJpV0wwuDPWgGH3d WZzT5n4R0lswTr5XqO2PV RanHx9IKPePsulrBIjWEU 1CMUjKTHfb61dBHJuOxKz tqrvOkRcng9zvaSbW3axu sQwqzidivLflp8cJWpsgS ZqAARyOCKnZMRxf69eGPV jsoAxmIFekAciwAW1m7oi QWUqV5bwnYxTjMX0fJTzW ZMxB2VnhKp7SBZtRJNvqw PvnK89ZysajLGxIOccGWc mQUQqvtQrjU20NwxfpQVj O2Prd1vvKHdaIHvwdXJdR OHjo2l4rc74EZj7quPnEE RmdDNcdHJwYWRkZmwzXHR ycGFkZGwxMDVcdHJwYWRk ZnIzXHRycGFkZHIxMDVcd HJwYWRkZmIzXGNsYnJkcn LqYaHdkm0fbtQrQ4zhhmJ ahHgpcfXugb7tCMhqcYKg WZEtCPJrHKKvg70yUKUhD qKiqsYhLhRprd0vgkAyI4 k6ZUY6MXs7TBNeQcNgA5r vyLchJITsd0qaLARcHHAa VzlfHLspnKHdFuBcG0dqd fFjjFejuaRpls6dFUpekJ JvLIFdJCLxGRTev83qPJP gSxWrilHnOqQklx7htvPa J0cekfZfIykbhtKnig8zR KyjiFVmhgLflBOaG1wopV NByGF3bOIaA2k9G7dnaRl 2Vgi6XZNotEq6VOKkOqcf YXJkXGludGJsXHFjIDJcY 2VsbFxwYXJkXGludGJsXH AhJTnnhYRclFLxvVR3LLg mHJeeYGdvcVGhMUIak7j2 dq45NTtqYNZ0mx16GHXek HPySDZ2Y6y7xsQdVZEkuK XfrZUdMWKdlIQzVJu6joK hZGRmcjNcdHJwYWRkcjEw IOc6xbMgMJWiNgFyH2ebb kLwaNfvpbQqzi0kOZbtaN BnMTFxOOXsNWLna38mNNW xKpHeeyXiGlPtxa0spnDq I7zucwEzFgwtsrQxag0aE RdtjEHiamIfkGRpN6apmT FYnPQ4jHCsU3n8E3xklCo 4MpY1AJAzbWt1ZVSrUqly kPFfURL2PJTyVFBfa69nJ JYuFgHabpazSiMrlo4zdx XbM1lvjvOhbgsbbkRwnm6 uZVxjbGJyZHJiXGJyZHJu s30aJTEymwZlyTNkaRkai EO7n3ujQRWcQ2npqFbPvK Y3jALjQEPtP3JnkIf4RVC wXQXthjBnkE41LnmvhXAd E2kqEPkwWUIedoYfqC49H hxlwUJdD3Zav12dICKbsH tknJ90Cirzyv59TDRyniH ccWNccGFyXHFsIENvbWJp ttEqCMUjmFAiBQEoc3BcA ycrZOOuIK8QTQrvT4HKUd QfGGOGSER5NXWYADujAOI ilRJhLDOyh6ixWFUazAHk WUP3E8q8urXzSVXllMQub SHrBSCvqPIbOPd0nkFhOZ RmcjNcdHJwYWRkcjEwNVx 1ycOeOQFxCbPbW2carlCw wNrgvkCqdt3jUMkfgTRkY JAjKKPqBKCea50nUMGoDx YbvtNuUeOwny9acyPkI2r iyjBzKcttbuUenn1iQTga jACvbyMeeGSqB4lbzUDTf MN7uSIjI5k3O8aauYs5Lx NlOURsoUs6ZXF9HHpxmME vLXB3JVAySHQww97mFGLa XcFzyfyjJoVzon8whiUoH 5ntliCdwlwyndLbtc5fTJ cygFNzMTPpLUBsYDNlq84 lXGNsdmVydGFsdFxjbGZ0 y8ksGRMhB3qoeUhUiUE2z EWnEQZtW9RqpRq3BMUjVQ MvvfWyxF24BrinpDDpCV9 1SKdvI1UldsKmR2CyxEww YXJkXGludGJsXHFjIElud HZhgWXedJT8qY7mOEZbgQ zscO87Ysupzq53OKWcc2z mDKQftTVbEDD9Y9t5pmPv ZGRmbDNcdHJwYWRkbDEwN Wm5drGfXJJrcpNvnEZwVS TusrFjOOj1pfCqQDChIrS sK1fzbbTyfCvovlDioj5q ZVxjbGJyZHJsXGJyZHJub 25lXGNsYnJkcnJcYnJkcm 4nvcLyM5aknvGaGjfiziI yhr8iJTodoVMsmkVkfPSo G9adpMVBnPL8vVHbT2u7I 7vpoRm7EiTiRADkoKh8BX N2HClesCQiRFZ1HNYrUMZ rv48zJAJzXbFnhuvxKqKr ra6ujiRlU5qpzmVdbdfep kLwzf1sZUglnOFmNPQnQQ CeINAzn82jLMCodxCgwJY uyJepfEL7u9swLGEaS2af pUdUhOL1fJJdDXUxH8Ujq Qn9CAVxRDNqtjDnpD63Vn xccWMgMCwyXGNlbGxccGF yZFxpbnRibFxxYyBOZWdh hQx4HZdwJVjoZJsyfSBrU VMrp9g7ph30SByzYHC1np 26XSCfmILbGTE3J9p8vyG hZGRmbDNcdHJwYWRkbDEw NUo0mrMpKQKzsvSleNUwJ GVrrhJxVOn1ywZvKGTuJp DaA0trexEpjUzldwWhrz8 uZVxjbGJyZHJsXGJyZHJu g43kFNWyCnYmgwBrTrAxq r7oemRiR6jtnrMlVobeka Okxq2mGAqjiUJcksCtdAR bT7tlsOQNoME8oVGeA1r7 E8klxVo5EbStSZIhmAm9X AI4LHguwUVxDPG2DSVjCP Fwk08jWHNfZhTrmlvdBfV sea5qnwEtL6kmmeYrugjm moUfpn2bPDfzcTVnJUFbH CWgJNZwb87sLQCkocQcbD GpiLhguNI4z7dqEIHsV1h efMrNdBD0sYMzXOClB3Sp yNq4ZRKxXWLdrpWbuA36Y fgdcFXoJnf9MIGvAgw1UM zfX5XtmTgjFUXsRCuovNA vCBWtVLPzc5y1vLHaMSEf oFizvS14Xpcvbh70DXXey mRccWNccGFyXHFsIEhFUi 0yIGlzIGRldGVybWluZWQ ieHBfypfwER3iRIykn7Fc fFwgNDGfx5YniMBfzg2uB XNzLiAgVGhlIGluaXRpYW wgZXZhbHVhdGlvbiBpcyB qOKBff6TcCXGeaCJdasgw DS2faU3fyA9zUR88rJ6wq PhhBEJsW5gbxHH2HVK5rZ VoPFPndrVjJxz2SS9pua7 fxL4fWLxxPP72tT4NKQVf Y39swWHxmqUmFu6qrQMjB 0sdukLrQTM3BVKVQCAuIN Qvrz00BIPxLCHhtsSpqaQ pIHdpdGggdGhlIFVsdHJh FrawvuPPhie8AHDeEPewY EFCIERldGVjdGlvbiBLaX QgKFZlbnRhbmEpLiBUaGl gYPsnFZSbuQ1lnZOgWLBk rTgrxPKetdNswDE3jTSbe UecYCTuYHk3dSGuMV3jC9 R9sJUoUFmyGA4oHKSmCMC 7BVikvS1kZIRafiBxp2Nq aGb2PURmBorwa6KpmT8nc edoLfGfDJyiq6QxybOydJ p6yrXfqiPdX54oj1ajJUC iMDPawI1mlT1kVXZmb5Yh CFOcIKEaNHNcBKOrdF8xr KVeRSQquGl3t0OzmSInKr qle0EhdZ0xgrszABZzYSG yZWZsZXhpdmVseSBzdHVk rIStIXcxvEqhWog5f6Ybl 2NlbmNlIGluLXNpdHUgaH licmlkaXphdGlvbiAoRkl TSCkgYXNzYXkuXHBhclxw CWIvEZnqoaQuk3HlnBVfV I0vAdSdmNScGy7esOWtNS 9dOWPwnKLbmtFurBJvyr9 cDUPiCCBcYe1bsEBtwR6a Cqe3KUQoDLPuxyDtOhmsU YOuViAiAGNvPPAmm5M7LX 1bZR6rfIJexiHkR01lqQF oqZDbYNmzJ9magTV3BJly cHJvdGVpbiBleHByZXNza S3qKGCgs8cazPN9XIuahB JvdGVpbiBleHByZXNzaW9 fMNPtCYSjgeQqde4ngRMo o316ou6gHDWcdlUdzmAoI NEikyJrY98xiWDvrZZibu Gbmu56yUnnXNd0SQTuVQX tdS1ooNkbMWQ4WLr3SFWa q94qe1QoiAftFFDdg0C9G bRwZFwqFTTux6WadqulxZ ThdD6vjSWmISNzWYEgvWT xZHTwIt8pdQ22iqUrWWTs w2EbxT6tHSBgNFRjYSABn 4keWKsmCX0yBUWcONRsI5 LrEBXgbWqngZ4deUQ6ddX ghfVmlFjcMPCiWYEsF9Vb KMEjK2yttMcda3VnP3gdy diqABcsN10lw5kfQ9zavu 3snoJkM5HzIOKpxI0nAG6 pUTAmi3YbqwopIk8pSDjU HmTmk9KyzPFuLSwxHNjzw mFzaXZlIGJyZWFzdCBjYW 5jZXIpOlxwYXJccGFyIEh NIl0lG95dwVtzeSJyVE6T L1WQHHFHSJzZOjHcTLMTA QHpZYs0ZAWxpdULjpRkjG FpbmluZyBpcyBvYnNlcnZ yKUBidySvLZ7cjfReAKXv jRVemxucHcM1uIP2WYzfS OflL66wxAxglCQfME8sIZ bqSEWjeG49OPCgafRlfQQ vPcedZTWiRJZ8lTAbjV6e UNJdII1gHTcjv8Xcy2Lgy NZjq2FvX5SwgPNdVGCcvd xwYXIgTkVHQVRJVkUgSEV RKoTZSGSMRFvvOru5CCVm djFMkcDtqIDbPDXdJA2re ZKhXY0iKFA6XXmyuQ9bMO RoYXQgaXMgZmFpbnQgcGV oD3CkpFezlGKoXM4nFGfb dGhpbiBncmVhdGVyIHRoY Z0fWPNdTQ6xICY8kO8hFH NlbGxzLlxwYXJccGFyIEV ORGiQO9JIDQEWLCXbGGPY F1MaANDzEYznaZCaNTFnz fU0cKXaklGqlXvlmQUhEI 1icmFuZSBzdGFpbmluZyB 4aTI7WCccEQKudKUhVKZp YTQaAAL7KFFaDJSaJY5oG GXvJKUlOUTmORV4nEMmlW 4wC6YyMCPzmmR0yXInGRE wOOIiBuC2mM4kdiAuEFuc rjYhhrCeyZKbtN7kVUXko nRpYWwgbWVtYnJhbmUgc3 SesM4pnlwvjLeomZKkjyA grdNcmqRzRZDbFUV5uSZk qD7tcADpjbH9fEOwQO7cE GVxdWFsIHRvIDEwJSBvZi E2uZ2xopGhRKvnpv1rlBN uLFDljeRTL7ZJMUmNSJIK IYXpITIYD5VgPFZxMRmoc AHlBXTckpN4zVPoryTvbU rabFHyNL2aamHwWSEewAO nnuzyYyC9wSB8SBmvAXRu bXBsZXRlLCBpbnRlbnNlL PEeglEbo4z7bLrvDHdhKY P4KXDmqMydcoQmOPEna5O czZQba1XiK0OqyEZzHVHn ertsWPPsj8YvODFzh0GfL AIpA2WtB5jhFQ9bmNAfkA TdgFsuAZOMZ43nR2LVPDa 0aKUywCyhYZSby3EdVVWg UFIvSGVyMiBvZiBmaXhhd LbbesYvyaJqKNHnbqU5kB CmdICsgPFiMOUmFZUth6G qNOkegtKcw5UcFIGukCCq g8SyFeGfi9ZgfgQgqbKci UWhiR0iRiXeqD61grJjp2 XvVn3lcJNmwC1iACHjtzu oZyUwn1EtVTCsSoQgNS6h HOM2XDNHQRPQdYQzi1uuu 3QsIEFuYXRvbWljIFBhdG yknW8lbQ6ajFAbXDZsBGj wYXJ9 Clinical Information (test code = [id number]) 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] Gross Description (test code = [id number]) a8ckiRWkLOOoaZOEGPU9F NXtIJ9uyNugaIt1yEpzYI GenyH5rEBzHVhqc2rnZTW 5l9jkhzARJjxpTJCsOQ8c IHghKLMiMP4eBeJkJDHyU mYxXHBhcGVydzEyMjQwXH YkkYOyuMN0TNNaLZ0mzuo sHAfeQFynIEAdjaG8XNPn fJCvU3UcOYQrBK0xzgklD KC3PLKLWwhhJi8ikAHisP tcZjFcZmNoYXJzZXQwXGZ mfWbiBAAmDRn3uK5WGqcb Q16fe5U7Eex7HRHuHEUwJ 9UpJF6qAVFvyLYyL68WKj omXMQ1TQPVWoioNikphUe jg2VlqIJuDTGwRAfrvFMe NTEwMDAgXFxkYiBPVlIgI bH8IpX7LgllEzJ9TDd3GV CVNKLmUcx7OAR3STH4NGk 3CTMiHY8mNFstfVEqNCdn FgxcSGxzP391LStfRUMsA 0AkQ1WmXLfpFaQsAVyaNW OaWFYgTQaxXKPrV8TAEEC jSMG9XmS1MRTrWQo6WLbf L2NMIZFgWXFaFlDlRPRqB eK9STt0EYMMFb4qGYg1XX X3YATtNYH9REvuROIiIZU gMiBcXHNzIDMgXFxmbCBc JO7auTdwAMZeRT2FDCJaT UkeQOYtCoRtP1SQL1jVPH 4gQVxsdHJjaFxmczIyXHB zrkIXHulcQBXpHJ7EJNMi UJiyETb5qzQpCOEfTrXyK UUlT76lk8IIh5GmIE0RGR f6wiEqdolkoL5fUUHkmaW gDQpcZnMyMFxwYXIgDQpc Q6DoJEFgCUPleVSzHHPug BTbniYhFPj7BRQwLpZog4 ozKp4zFPbhlYRuo9YfxdX 4eSFcMPUffwI1kDYunWot biBsYWJlbGVkIHdpdGggd GhlIHBhdGllbnQncyBuYW 1oYTVSECRfnH9qLASfSTC BRgPyvyEsIoMaOb6egPFZ lS5azoZhTL2wQHRaslWrq 3MzBC3qNAVdu3lvE6hqKH PgFQiySA32MT7aGFjkikY gwhAxIRYfm0ubZGNda0F5 GGEbFX6iQTscAY2kDBkiY D84HSAkRP6lB51tNTPsGC EeZYUqIZSoSWNeh49lsYz dTQWcOU55LUV5cYQtlWLe XJNkJsUebSmpz1ObWtOTa QJys1ZvS7bnCD1ajTUng8 FhkBc5zIGfVYRjpJfdBGn 8MLEfjfBdVYLpOF3kisOx h4PdeLnzysGsokVWLIimY a0vrN81bT5mWOGxA4FuV2 tckLAvdQcztj7mkGBpRX7 KXHBhciANClxjZjAgSmFt kKAuC8BrKMPeE6egIC1OE RR1RxP2DoZkFaAcKXo2Oq AgQS9hwRRwAV2NFCIhRcB bWVIdW2dbHKSyBB7RDRQh MSANClxlcGljTmVzdERvY dQ4XOJtsFWgSNL0OU1myW teUJEkIFi3UErvBCBfH3N gX4VwMLbgPkByEBfaEUIz LNGaERdwQRKiR7WZMDCrZ RJ8RbN4HWXcZQo1RGsuJ2 JPJYLnIDBhBcEgAOP9XqV 7SYm2KAQFPu3qZZb5KXrd VUy9XQB0HMnuWTKcYIEeY iBcXHNzIDMgXFxmbCBcXG 1xpAkhNYSuSCQnXQU3LTQ ngXFVk3GfYTKtBWtpQ7Pd XGZzMjJcZnMyMCBTUEVDS W0XVyAMEMXbGnTjyGEnLH 1ERTYwzcOzTYbpsNhguM3 luWAsR8opHrCfEixvoRma TmVzdERvYzEgDQpcbHRyc GFyXGxpbjBccmluMFxzYj NyJCQaqHPFd9IiUQXXYxw mczIwIFNwZWNpbWVuIEIg zQPmopUzUQq3KKWjZnCbf 0uglNUdPUajFNA1yYQrYB KsOTQlOJHoIN91S4YhgbV tZSwgVUggbnVtYmVyLCAi Zu5vVGzoSyQoJK5eMUN6Q OZyQMmreJCkl9LcKPFxDY Cip22ekYS7vtZkJwPrdlV iX5seJXqmxMNhx6EkhFMr CHAamyzzzP3mFcKxb92af JBoNWa5iCDjJCDadaNeNm UzA46rzkRcEEh1RqNcmVJ lWkLylBJrTtgfS63kjZ7y NZnhlwPkZYAxJM2aYOUhU QEyHYJoKQB5WVAzOKpbCM 74tjEwdtMpWhmgVUM2KXQ eQF5eUJLgFMSklEBfuA5v biBpcyBlbnRpcmVseSBzd YGpqMN0ISAafE7fLqJfQz DsPQAumZqaj2lmBzZGhT9 8ol1iNYzmROCvUYhqrXWo B6W2xG6lUajmHFJgMQlsk 4WdJMLlnCOSv2UiVW4ULS BhciANClxzYTMwXGVwaWN Vk0YsMSERUsyiJJOpCNDC LJCuzllkNECmPGPGB9LzV 20NClxlcGljTmVzdERvYz F0SNFwhJMcHPK2UC7yxRb mJJXdJ1IpB8PdfjN1WOGc hyKSUycrCCDtKK4VUDRqO jIgDQp9 Intraoperative Consultation (test code = [id number]) c0orpTVzYMGwrJHNZEG4K SMyKE5xrWyalJm5gFcqKW OukbT4wRCsUDbuu7daYCS 6k5wgsdBULssuKHZzJE1a EAcrWALyXB8xQfLuAYNfL mYxXHBhcGVydzEyMjQwXH CugZEtgBE6PDQfUT0qwvl cZHunRIfdECYlyxP9JEAe uQAcT7IvESTmQM6xclgtR KC4XGYTCxafZq7ytKPhrB tcZjFcZmNoYXJzZXQwXGZ yqRabDOQvOSg8iQ5EVemy UCB0JZVORwugNzpyqSpvj 2VjdCBcXHNnIFxcaWQgNT EwMDEgXFxkYiBPVlIgIiA 7RmV3HhrsWaH9SBd1WZIW JYDqGup9VGT7EGV4OJy8N YOuHF3tNLmsaVRsIFvmFh kcUBzdG964LRoiTRIeN5K fI4LkNVslSrBiPIqjTGNz MNQpQCrvSWVwI5VAQCSaP QW3CpT3JFPqKNx6KBzzE0 ZTICIgIDIzMzEwNTQxIiA 1LTz4LXAAMf4sEJr9BUZd OSVwLqI3QBihFDHePUItI iBcXHNzIDMgXFxmbCBcXG 3hkZdeRFTfUK6MYSOoDWj mRBTwUkXnV3XBR2aEGQ9y QVxsdHJjaFxmczIyXHBhc zCHNxpyDWZgUE4BJHHmQG ndGIm7hsSsJQYsOqWwQXQ gL16rh1TKy0OlXC4CUFg2 doFbusskdW4hCATbqoFeQ PfaZoPrXSROEGqqHk9KCB HjK5VVEjPkWFCVDfUEAmT eSsWhPw8XWWAEKM3WEzkm QklPUFNZOlxwYXIgDQogI OKqCC7mHGYJBUmIFMdVKS DEFVkSCmJZZvWNGZ6IIW0 OIFRPVUNIIFBSRVBBUkFU UD0IBxfdHtLGQ7LfJOINN AXXZEJAB9tzZMRiENxvDW WxWG4pEb6kYcWHXfTKCMG LY6RLJ75tJMTPYo7ITJLA YXyRK69UDHRSQ7NRLCkro KIkPT9FOWGioxHJWqQbo9 IlsCDasqKqz1K7IOZvnT7 iKWDeDJgfqGpsf24uPO0d BL4bBIOsSDB8ERV0JopwL X1tCROddaPdrz5lgFyfkb OgYvDpHCSiOZIrI2dkb3C fbxPgrSp1azXdpgGwdZW0 aWVudCBpZGVudGlmaWNhd CrdmsE2YEKwuYSxUu0xlN VkLlxwYXIgDQpccGFyIA0 TEAWiRGvrYMCioEYIg6Ak ENqmlRH2QVypuX61gWSrM O5KUIgdqKZbvCIhFLBzOL VuIEZlbGljZWxsYSwgTUQ rUE7nZH2iWUKrHo0RIURq jQXRETD1KG4iVPtiEVBfG 0PsS7MkcnI7z3qpuGsnq1 YwcZTsQA1kxQVeWV4JYRW hcmQgDQpcZnMyMiANCn0= Disclaimer (test code = [id number]) g5xgtAKqRVDve5tdBSOgh GFuZzEwMzNcZnRuYmpcdW IxRKzfbuWuTZojq3FxW0W yMjAwMFxhbnNpXGRlZmxh dhmtZBEbKCL2rhEnRBMrA MbgGHZvMTngCn8usKOshE izBiNyOKPxc4bciiBTVZc nWcRvS433IHQeMUvdr4wg f0BjIVEnzJKzn8M6DOAYl zlbxIg6pEofO95rj7R5Sb fuR9ucNTDxKVTnK4GzFF1 nMREnFsj9LXY2AQZ3ECJf LKWxT2VqBX3jXNAmiIPqE Bp0e8kimMrzWYRrGTK7k0 teMGmuhhIpCS0amn1jeNt 2i6rwjhTpSPEoOVZghRML MCDuS2PlpLppKf3xmZn1a XmmVwayBNB4Zeg7VC6uhs 12dzt2qTadAWPbwewqPqE 1OUyeJNQnxpcdNQm3ZTvl VHSmxEA9KPZopOBdR5XwU ZLtAD8etik7NXW8HDbjFJ CiHsY0PGNllFAhAQOebMz qWGgjr741AKE4GlKhQB2a Y2Dxp0D0dI2oaYWiNPHkt SEhLoGeXNUdrs6vlJMpYP kch6MhXXU7tbR1qQJfgJZ lSWZsHK94Rsfye8VbIsla s8DfE76vlVF9SUkwk6wsA P3hCcC5exVzKKqqz1pvjN 8iEkK3SXqpNV9pFR5fYJZ nnC2ywrguMLDeJxAuxuro TZSbcPzjjrFzSd0caScgH QC9HEqfH8jvlH5nAjK7UB myF1bmvN1iIVf3POmtsTM 0VQWiuV7mMH7ltgskc4jt TLelFSsqSBYmstT2ruA2N WXeyEOgQ5ChhO2hUVHcGF 9wxvvrf7irURW3GDutIAY lDLN7AhOrNCMwn1Mfksc1 EkBwo9TdxDWaPDnqG49dw 379CECxroZiN3kurNHzrt zceKCripsxVSycptE2GGN tvsTgi8ZmCALyRNF0WRes RVyomRVhOLEkuZqce1hsL 3RscGFyXHBsYWluXGYxXG ZzMjBcbGFuZzEwMzNcaGl jaFxmMVxkYmNoXGYxXGxv Y1coZeCvO7SvEEUcDaWhs AOmM0tzYIvzjdRfLJYqkn PylVV1RFcrV9s6DGEbmqC jrKc5wzRjCpQoROJoYPC6 TGsntOHbXAQnd3Whtyylq SOsVa9rdFJaQZLgiM3bLG OcLFIeRJurRL1cfBv9LVY IjVXoxGLiPiDDKHTiZA85 zjYhRXDRsehod9J4FUfaA RVsd3CmyMVcB3jaq4YiGJ Nnq94hSD5rx7S3g8jpUGS 4CY9ic3UgOCZpzVZdkGWf WLXng8Kdodhov8VlTAUyk bVyj0LpAQUagkKwzYZrTM YxleWvlo8phtXmNESjHZH vW6SaftpthTsrctCwUBKl ja3hklJiZUH6HARECTGhF IChb5McnA0guEYDKOP2kL Uogx4jehWLyVSbODAwlq6 6HSWmAG1bM6ngMTWuVBRe uvNewPEmd3DgJMErsAB8l DCeXE1QNcGHy62eJXNaAS OWhlUyXYOetGrcpSM3aeW 8hR9oUIoLXAPjKbq+IFRo TEBQGBSgPD7wqlUfp8Cjs vGhiJgmXNJimVLap8ZbeM Scm4HiiCvlp5DlfEMneEO xIN0jKDWsphovSVXuPZPW JmFPUCZuxdH9r4GvUPPpO TPpHYP4vHhlkah5JDZsxV 7vWTEfN9opnbhhMBprOHF wv0ZunY7yhJNFlUZbo8Py zDHetNQBjWIpVP4yqaFyS NrWDTjRNWO1blBiJZEml2 RoPCamY4iiC90azZysdOk 5qBY9OXL8kU3bSmw+IFxw YXJccGFyIEFwcHJvcHJpY XZboAlgweHbW4KamkNacP 5pyYSiisZqEC0pKG0lT6U 8mUSnHPHpzmQfb9jbAYva dmUgYmVlbiByZXZpZXdlZ ZAzj0DyAPsjIXV4FWuhlk BpbmNsdWRpbmcgSCZFLCB GkLZvjMLbNJO1EQrnraDq xkAhZU2igB4gvCfzyI4nu SYebRN6qxueJNGsBTWwcO xiGRAzDF7fdXfrtL7dQsM uKwMeNFvbWS2tWNMlE0kq qUNgTFTaNGXgN3viPcDli E3mpEmwYKncMuElFbPgIG xwYXJccGFyXHBsYWluXGY xXGZzMjBcbGFuZzEwMzNc aGljaFxmMVxkYmNoXGYxX ExvM8tqTyUzN8VqRGToJf SuxIVaU0wrFWfiIBW7WFO eTJ2ehKWiFE41aDFsr3gm AZnkxVwfzq3yL42akDPbU OdgvHmrRDAoq85tj9CjHB UlbwKlsj3wEOPkthL1vO5 sZSBzbGlkZSBpbWFnZXMg a3JpHAduzTErujXbSHedP GEqDEWqyRLmhtI9ctCyut NduaKyZUUdnTacLEBgm3Y jOUYuXGgrk5Embn2qfIOw EARgkaTHzNfbuCRivJ8sQ 5AhBEVjVJSgqv1kKYYylZ 3pGLawl2WthxyiDQJyTXY kKNFszyFdmk6hONOkrNOY CN9IIEzlqZJot8PokkDhE 0rNPRU4WJWrSeWzGeacHO ZocAJvxHFxJHAiio15NZV laY7bvKjuQXEnnE7ajC1g uHbciO5fMmGzWkLnCOniB H3bTFZuT1rdsLCxDRWyHL ChY3vvWfVddL5yzKtgRYn yEaOcJbKaZAywNKV4qV== Embedded Images (test code = [id number]) [facility] [id number] 22:58:22* Test Item Value Reference Range Interpretation Comme nts Case Report (test code = [id number]) Surgical Pathology ?Case: [id number] ? Authorizing Provider: ?Natalie Ridley MD ?Collected: ? 03/31/2023 1517 ?Ordering Location: ? ? [facility] OR ? Received: ?03/31/2023 1526 ? Department ? Pathologist: ? Sandra Tyler MD ?Intraop: ? Sandra Tyler MD ?Specimens: ? 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 Final Diagnosis (test code = [id number]) [id number] GFuZzEwMzNcZnRuYmpcdW MxIHtccnRmMVxlcGljMTA 6FPOnJT7mwUfakTw0aKke MNEybyN3dEWyDNpuo1ovM AF7v3iknqpkLEExAHhtDo 9udHRibHtcZjAgQXJpYWw 1yG38SBFirZ8orPLcZHl3 XHBhcGVydzEyMjQwXHBhc AXfpTI9CBCvYA2trjltQC ddKEehECPnqzP3DIKshTG vW3AlNAQdZZ5vdnicRMH9 ALnvUKDbHKQ7EqPdSDToa 7Aijaq6RiYkeIFsUGkezF FpblxmczIwXHBhciBBLiw jUq4nHd5KCGQuV4NMMxHz RCHQBcMASnJlXtBsCs6HX ZIIPU5NQmyuE97WHVXASM 9NWTpccGFyXGxpMzYwXGZ pFPZ5UMuvwA3uVaCfRASd VZ3nIRDLLXDMPCJOEpQYM YBHY9IFApHHDs2DCYbgQ8 3PG2jLWTLIGHXBEANUFGO HVIDYFBBIQjwDMC4uPTHX IJGAD37UDD8NJVxtUUEcj ZqtJKJlCXmcdT9uGENhgn efHDOjEOS3AzZ9PLBYq3F jgTUlNT9xDCP0ATVgo40l XU1VKGI0EtF9VdWxIAq1U lKzLR8ycBLqYKUxch96OJ G6WlPgp3M6PUBoKwKgBRB xYY9ewEtxSJPhIR2sSPEw E9lpsZ5erfe5RgMyWCWpJ gW2UAIfrnC3Sfi8OGScUW opt6hnw5FeF0OvtMTfuOn 0h7mfDSOkFbK6oBKhJOwr A2wwofMpjSPeLUDdBVw1p OzzTcDiVYLne9rkjaBnIi NoYXJzZXQwIENhbGlicmk 2nS67CLZezB6okVVuCOgj fbHyZuZ5FTozFOQcSaR7L FLmuFJrYXDpX4njHFGbPR xaDVKcRVezbQXcJDV1wYj kx6O6sBXsnXShyAypSvNa VwZvYQRKo0KqZLz4pRywS 9OcISUkAfZ0cSFwVHWxYM dmWBWnMJTgupF8kV45ZEq owlC3qGKom4Pev20of843 nZ3snQPvLSP7LDCxGEIuh RJbNHZtCKX1KABwjPQxU4 zuWDYmPD4npfigUTktWSu vHYHzkRH7GBAnpWYmR5Pv KQXxELkkSFMptyf3ThVuN v3qzEFfvMpjAGprt4adr3 vdgOVvQsl0FXPjTtFjAls qRMfkq7Zyk7gpWJYzdv8x GMU5lBOyxUapi3V3aJSjL SIhhMNthnEyEBJmVgV4HE wuPI2evr99VFWpPIG5rr2 ybGNccGdicmRyaGVhZFxw N6KvFSIks327KTQzM0CwL TWfu4H1rkYgBzQaGLRnpB T4hkN2SDTjDMg5cLAkslG 6kvWpuGTwQ8qacV2kYTBc SK7inzdmy7reVVmsSPomN YXhgDO3kyJ5TSRxsXVvO5 JzkL3pXFZwSDvsLSFxyql 8JwUwTs7feLUbxAggYVlz YmtwYWdlXHBnbmNvbnRcc GduZGVjXHBsYWluXHBsYW luXGYwXGZzMjRccWxccGx jkJ0xIrZsGfGyOWvvNA5o URYzW0qzeGNjLFRyTEDvG 5qmQdLmeO9pfCkhCKpcDs JcZnMyMFxwYXIgSSBoYXZ lIHBlcnNvbmFsbHkgcmV2 sML2AGOiJVhyJFFeCJDhi HKzmd8ghTzfBUQvOZ5eEQ FncmVlIHdpdGggYWxsIHN 0YXRlbWVudHMgbWFkZSBi eSByZXNpZGVudHMsIGZlb Bzoa6Ama5JkaDA0pM0iw7 bob0MlHWRdiQW1DI45hjA 9aY0gTVLiGT2zMPPsFL7o pUQebZKoAESxh34ztFqrl yByZXBvcnQuXHBsYWluXG YyXGZzMjhcbGFuZzEwMzN caGljaFxmMlxkYmNoXGYy TJqeN2ufHrEuJbFwTDskG XJ9fQ== Final Diagnosis Comment (test code = [id number]) s3zhhRMtRBTynOEqRNSkN 7sjzsPkJFYmoGRmG6Xrrr riRYldSG2aZT1jsElisVR uhSXrGSJtHySta9icn737 xVMrr4puEGSNiazrxWd6g HkgH69vx3D7NtrhQ2nqVM ZxVJxklfQlehL0FSJvxPY yJCh4EOVbgAPfrqYsUjBt ZQPnpSCrbRY6GWUhIQ2pm kopRVtuWNitYCSsttG1FR RecKStC3YpQPSuDO8bvnh sIJA2VSoyDRLvWXC8DkLb LOTpf2Dokja1TjGvbSHpY FxwbGFpblxmczIwIFNlY3 Joe11xRHAaj0icXk8vLJT pbnZvbHZlZCBieSBtZXRh c8GmgOofBNNbHD1hK6FxH 4nlu80sGKrmbYUjJKUalC PvbcBoz9FtpY8piJVkOIP tngZaGBErMK0mCCXoOSYw AIshCETaw56rucLwwLYco AFgCQUhYSCmVVD6F8YemF bcODgmLzSkWZ03ySB0xV4 sDFW3fEKdLY3jum7yi6Ek oK35jlZuVRFmvIz5AS8hs SNebFWyXC85M6fjfXtwGA LiIDCjh5YkI7ExYuApRx2 yrEFffeGkkZAkM6H2pzGt RVVkVQQqk5Jwvg0fuUpuz CTvsGXzgG6omHXqNSRwAZ Ssa38wLuWVgKUpQOIhOVS jNYG8jV8zlQRmwOyhBYPu sNwzPAyvTDezqs06kf1yz 1LzshR6SJteG4jdc90jtE urGVepJZYpy195jCnsAY8 aQH79Z4abn2whMUYjBNQe qtPojdFulJW3s6DkFoJEF 3F4aYNuGJQeaBr9e6ZqCf GohLv9iqJcBRMrKYDoa6P wWS9hXXIoyalwIWVzCcxy iM0ehQ4fvDkoyM1ysGBvl YM5owftVSAbv0EtFFN2IC cdmBecDYQ6lY8iKHXphSb yBRIjqI7tr0SsMHFgTXZ1 bu5wIyZhr5AeqIs9kXT2Y GZvciBDSzcsIEdBVEEtMy wgRVIsIGFuZCBQUiwgYW5 xVQFvDEKrCYcauNa7IMMh d4GxU1rzCKszLACKXLrpF YWdFFIASJHlDE7pFQTqXK Vee3MrsZ3yp8qgOtHwFKN 7oNTjqmItknWjhZ7tyB5b hRrqvv59tXGcVAX1dECxm dKxYJBdJROir1Tdi0erYB 7fASOoFNYxeHAjnvhqtI3 uXHBhclxwYXIgQnJlYXN0 GZQxu14qlqpkhaFxyX19g z1ntZPtfgHbl8CkHMEmPH Kjp8ScTADjv03vKigeQ2y bVrEyu8v0aCY2wNCyCv5k wG85hN1tQMAhw9SlwNMjH ZTbRCAnxZUnTFSnL9JxS7 lmaWVkKTpccGFyXHBhciA xANksQLURKJCdd1w1dYHi DZCtUSEjJVN1nLYxf0t9g ME8STLkmHUeo9SlL3UocZ GdeG8wXIQycDSgrcBepKA yilQpxQKtzhftR7fcJWZp YDNuMXwxpiNkMTUpp7JaQ RSiLgFjPH7aV1erFNCbLU CzGT40IKJyVTiaG63tbQS vbCBjZWxscyBhYnNlbnQu XHBhciAgLSBcYiBQUiBwb 1JyuCz0PFzdKZKktkFfnH m0MIyydBnpHVUmJXO2kE4 dRNZpnNggUS9uCHJnKYMd KQ42U5szUNXkd2LifV4gl mdccGFyICAgIEFsbHJlZC FoD40uGHB8TMjrYbB8QPu ccGFyICAgIEludGVybmFs GHSsimSua1qmH2HbvUMwJ ANbCR51MpfqBISpAO7iRO CpKNHfEGQkgeL1AA2vB5I 6kYKcDNsuFlkgZZDtTC8b KNN8yW2pTEYhqNatMV0la SUqMQ7opJHrv2VzkG0hxc dccGFyXGNmMVxwYXIgQWx bFXC6rVGibeUuNREzqqKm i2qhWPAvi3cbLHKwks7ek aybwIXlloGmC2Gftnr1rR 4gXHBhclxjZjBccGFyXGZ zMjIgIFxwYXJcZnMyMCBF Cc6YAaVKvFF4cIAfrLPxK CE0MYNtfG1zQOS1v7ksVd XawqYdhN28qk9tyvrcrSB 9nPTqXJNfHDpts6f5hYYg c34qU8ofucFqKIDuuAstg 0CdVDDxPJUYWABzf84zXU KPGURzijAdQVXzO0hsokV aAXEnFtFEYIBhEJMpmf48 ZWQpIHdpdGggdGhlIFVsd SKyKiuqqeGEaok9UJPkIL wgREFCIERldGVjdGlvbiB LaXQgKFZlbnRhbmEpLiAg TRIzre9lhsumqPTmifYlI UYkyeTiJH7rNBArq5r8rI PqTSBxntRzh4klYLFvXQF 9h0VuMpEbZBleGPNxmuLi zm4hulHbUJ2rBUBhdTAmx UVkyGCwJTHnLbAuqfJ7IU ktUBU1VBZxQLPvl2VkeE7 rVXRnFWPTEK5SI7UZDTr0 aWRlbGluZXMgdXNpbmcgZ o1imAIerO6yQig6HOIeqE EcNRZtgQ4fDX9rVLHqVRU ij7SrgWsigyHiUPKvycij YXIgVGhlIGNyaXRlcmlhI OLtJIFcLw1hXAAmvR4fbH lsVhTGIy6KQfODqR03bw7 xwNZaeFG5rrfezlAzsYv2 ngXvdsNqaM1nRLVsa9McA D6dDZG1aJJfIESnPQVRSV AvQVNDTyBndWlkZWxpbmV zCwmzYGTwtBRfLMSuv4x8 sIOcBHulDUQ2FYRrbRmne fWuynUtgEHwnBP4tgLlCR wgbmVnYXRpdmUgbGVzcyB 0aGFuIDElLlxwYXJccGFy SQRnaZNdUKGDC35sCXlqg FLiOAEyglb4co61KBo3dw BhZGRmdDNcdHJwYWRkZmw zXHRycGFkZGwxMDVcdHJw YWRkZnIzXHRycGFkZHIxM DVcdHJwYWRkZmIzXGNsYn UwuuMaUxUkhi5pllSxX8t dzjEllUvybrEqli9zIKos kXWwVFWfRDFcELAft25bR ZEvJdYrmzMzUeOerf7qyg FrY0r2ADH7TAn5VJQdQrL qV8xudVatRUWtl2qwCEDv PMD7JwdvFUumlNBgVjDmU 5xfgcMihDrcucKugm5jFA omxBDkEEYfKCQdROTve18 rVGBrUcSqdmXsNgHovt3b wiVgC3mkwbMdDeqcalXlf b3bTYsxoASlxbZpmYJzF7 fefVWUeXJ4tPAsK2f9R0b nmJf9HjR9DDQxzOi5QNYj MlxwYXJkXGludGJsXHFjI APNF6CHNkRIY31uK6UWSl LkJVCJWKftD1KnrWpyJXN kXGludGJsXHFjIFBFUkNF UpESM4KxTX1QQQFXDcZsM 9MZRENjK6NwrFobqoEyaF qrh4ullKIbd1WlwUPwWSK pOgUnMXArfYViYWJlL7f5 lhZuDHIrARA8SPPehLTmV MIjR3o1grUqZTQeBQK1CM XzpSRiWRTmT4taoWKxHXR 6KWJnEILlv05ySWGeLrDr kfedGwYbfz3fvaLlY6cra nHtkydzhrYmpo7jIMxkiZ DoNXHzZZMcWIPgj59hGIL lbbCoiYMxlKvpuVK7n1ry KQAdM5uikYaHlIH7tTIhG uHdD1RvjIm2MmD8RPXvLf DppxMeJwQiqg4jhtTcX9y rmhEhoCvqmhAusl6yIFau kYZkBGAeTQCyZQXft97pB XJtJmHzquToIfSaou0tbk GnJ7j0FCT6VFg0BCQrYaI eZ6prjSiwCQDct0qzBYZk CXV9IkfeKYihqQw0AeInv GFyZFxpbnRibFxxYyAwXG NlbGxccGFyZFxpbnRibFx lMzPeMPWqhLmvaQ54Mjap aj20CTAzt3qdQEKbwWInM VT9X8a2odFzWEOkoZAhyZ HwFYSvbWYmBUp6cyGdSEF mcjNcdHJwYWRkcjEwNVx0 vwJiVHQyDzSnG2jalrJqq ApcubIxas2sEWybjVJrRP DoDZVjTEKwy72qSBVqOhV xgqOxQjGapv1dekJuQ6zb kfPzJfepgdAezd0cUFfdn XXhyxLpuNTrD0myqFFJkA X8vJRpG0t9G0msnKn1DjY 7JFWopRp0ZUG3NoyizZUe JEE7SBAoJRKwx81oXWHkC vPmpjfsOlQpwq3zebDdM4 ugmvQzsuxzvoUuaq5nLVu abKBlDNUlSEWbRNSum44p BZLjgrGasUQnwBjshAK2d 3hfARXpO0ropGhMfMC0bR EqUtTpR8VbsRy1IPEfRUW ausDasG00NikmtIEyPMqv UCfmNKIebqUrxZ73Rrccn AMnRTLbRRVceXxdeE92Yn wzxm52UBJjq4hiMNJlqBN oSCS1P4w4qdNuYBJkoBFn rEWjFITzzQCoCIn8ibZbC GRmcjNcdHJwYWRkcjEwNV j3gkXmSUHmSbLkW7vdshX qyQcpbyTqlc7aIUqkiXWr AECuCIBxVGZqr78mAIPlW qWpsyFqNdVmid7nvmOjE7 zelnZrXrtygjTkiw2vRPu hpVSdeyBxaXQfZ9yoxLOQ cLA5kPXaO3l9O9wmqEk5N lD2IRVahYi4UCX5GsinjP AiPUB0MLIaBUJvn73uSFQ nSiPenpnrFrDudz3uinAp X7tqraMsbybnugByef5mO VxjbGJyZHJiXGJyZHJub2 5lXGNsdmVydGFsdFxjbGZ 0t3ljYETcA7paxQpPbGM3 fKTkBxNlK0KxzVx7LPYyS DRrhjDtaU36RwqdsYXpJq siUQkdKBRrtrGeoZ25Yhs svFGiSD3gOANvA3GymJem noIzlHcrq2izaQXuk3Kbs HJwYWRkZnQzXHRycGFkZG WcX2j4whRvVTOcQPO7DLD mbPWfJMQmS1d7huQfZWEn VWK2HFFvdXSdQIGbA8iup UQoTYP6BTYgTMVof62dRM JoFpZgodioXgFrva1hpyY xH3yyqnMlvdgpqaVkgg2z ZVxjbGJyZHJiXGJyZHJub 25lXGNsdmVydGFsdFxjbG W1f0lfRECxN2slyDkPuOU 9tIYlWrTzB7YrqXe6FjI7 DPOeQqLfamHlGpHxhn1jf tIhM0gvkdCooIhbyfQfrt 9uZVxjbGJyZHJyXGJyZHJ no89iLXBlBdXyvcYcGiMx ye8hihQiL9t5QZB8EKv6P CEvLeOpD4bxbHumUBLkb8 raTKVxMUO2IjfoILrntLt 1MzJccGFyZFxpbnRibFxx YyAzXGNlbGxccGFyZFxpb lBevIveIdUhED2xEzXhD7 IamXiubrIipEqjz2icnXB yk4MjoISdOEPqIyLtCPKt jASpQZNaB2b2szXmKZMpM BW9FLPzgEZpEVJrJ7y2qm OzPMEkGNU2IXOxbLNjLXO jD8uqdTNmEMY4KHDpYNOn h35wGSXeBsIochofEnSvm u0kudEuY3dakkDpqekdfr Hvwz6uGWyhjJFmGXDrLQT qJJJpg77pSYGxosCkoHOk eQqtbSP4n4ztCJWlT7aou GqNnWL4vPSbOcHrH0KbbJ d5FeP8YYWlWvRcrxAlOqK fkw9zniMeP8yqkaJnrGch xeOchy6oTSvzaLQzKJGkW HJrEGYyw92gTUSzEjWvvh LcEaGbhv7ssvTeW5f3AMQ 2JOt2UGHmKnLiE8cqnBuj ZUBpn1krLXLjEMR8GeofM SudkXh9TgQwdGXoKXxuxr SawQxoFwS0EGJnnYcwuCX dRFhyexOqgRmqHfJhQe76 GeTlG5RmfSkqvpFowMuld 9ytdCXgt2YwgVEjbJWcq1 l2umTzWCFawDCjiWVbQQE kZmwzXHRycGFkZGwxMDVc dHJwYWRkZnIzXHRycGFkZ HIxMDVcdHJwYWRkZmIzXG OqZvPvrmYoWaSrdm3ynnZ xL4fdqgEtqTcvvwUact9c ZVxjbGJyZHJyXGJyZHJub 25lXGNsYnJkcmJcYnJkcm 3eafZfF0u5HXM5ZXt7ARH zUnDpV6cleMsiQMOsf3kx UJJrGLE0HgeaXBcboHLxH zXeH1yqdzZunMsjknMihg 9uZVxjbGJyZHJsXGJyZHJ jw59iMVXmCrLermDqZgIl pf3bocUhI0msmsYoHwksm fTfjq8aBAmhzGNhjpWnnR XaO3pwbSGFjGP4uUWwF4n 9L0hmnMr4EzG2RRPaaPj9 ODUzMlxwYXJkXGludGJsX YEmYUNhR0QskAzbIPWsYU neyOAuNHIrYF25TpDjR2S yoNwvjlXevBlxk2kgeWXl WYppOKPnnGZnk7FqlVVyE WRkZnQzXHRycGFkZGZsM1 y6iqEsUXVmOED0MSKmgEH cJNUpG7b0qmEvXMSuHXU0 JORleFBbHJZaJ4rxxIAbB KA2RYIvBLIma81qUJRdZo NatunbSgFimm6yoxVoT1h dogQegvzropTaqe5vOMno jOGgKNNeURXpXKBvw32xA EWxmfSgkNMfiDjfbTU3h4 oyHTCxF5mjsZgUtPL8xRJ bLmUkN0FqfPn6NjK9BYJe ViQujnUfGyFnoj2lyiKyT 5rxtpWryWliduZmob1oTK wcbZMmUSVjHUAjAKJbn68 dBOSjOaGmwxXtEqIwhf4u msLfK3s9SBD9UPb7RXArF qImT9abtBhaPVNol6xaWK TiCKO2GohgSAlpxXg1MxM ccGFyZFxpbnRibFxxYyBJ LoPNGdSAFCneR0BYJxUyX ElTKVxjZWxsXHBhcmRcaW 78FolagQZmKJ8KAE8FUZE SFS2VZEZRH5tHFJOLIFpg A7RwhXzftcQgnPrin1eut UBaq0VfcESsWGAnZjWtOY CbaYNiKHBaZ9p5fyRfZLP xWOK9LWLsfZXuZBAmM8v7 nyTcSVBkVZI4VDFvbMVuR XSvC1tvcZNwVMW5UUHdHY Zxj21qVFGjWbUsriusWbQ ypw7fkkFcK8ylpbQeyjzz sjKizp2iBKozqHHrLSNxO LWxVJBpz61sMRKwmtJuwR AyeCbhrTJ1w2wrBADzS0k wsWdBtAJ0uEJtRnUlY5Br eIo1TnR1WEUrSlMursNbU tWwnu9lgcTdY3eeavZylL uxmoBdjv5qRTqfhXBgZIP qRBFmHIQqo43zPUYfGiIy jsOiLhEzli5xzyOqO2c0R RE2DJw2RTAqViYtQ5ksvK fyXXRxo3kuLJWfASO9Fat fUDcavVg1RzWraTSyHRkq bnRibFxxYyAwXGNlbGxcc GFyZFxpbnRibFxxYyBOb2 1pYIDxoGeagV95Miquto6 7OSArp4icEFTtpZShAXO9 A6r5bpSrVXVfkKBmsQWsK PEvkMOoLBt3czNlLVAhbf ZawKFgTOOteeJbPPm0ybG hGDJuRhDvQ1lktqMxdPvh loQarg4hLMrxpDNxQABvR ZMhRFXdn68pQGRqEsItuj QwBwEtjp1thsNqR7kwpbJ aTqskdcTnrp2vFYsteSVl ltCpaMNtS8jneOBHpTV4p ATnW5u1T8cdvUt6CxM1TC YtcBr5ECUzMxepfVDgLXI 4TBPuUYOhq48aEKIlEdLk sqbmAiQfln6jddMaQ5uav gAhkocisqIxmh5nLPmueP CuMTKuCNRgVQNkd26fIGQ rdlQjwWIrhQlgbBS9y0ol JRGcP9jzpGxKsYF2aRDcG QNnA0NeqAs0DYMxVJExyn QerQ21UggalGHcSDnhDTr bGGChvdUtvD39ZufyiPGq Y9Szn9tqRTzjGQoxmKHzI XJgr3e4mr73YLb0gePpZS RmdDNcdHJwYWRkZmwzXHR ycGFkZGwxMDVcdHJwYWRk ZnIzXHRycGFkZHIxMDVcd HJwYWRkZmIzXGNsYnJkcn TcCzNyqx4vjpMoW3ooloC coPyxfwSzqe9gEJhyqGMt NYVwXZTiKVKil10rPVBoA uRirwXlLuIrfs5hpwWmS8 i0DND5GQa8EIOyVyZdF2m qvFgbJXTaa6gkXAHuAXUm SynnCOxgrUUaKgYmE5sxg nIscEsztvNsqr8rJMinhS UeSLPaIWMxSIRib73eFES aGaSbhlPoIsKzkj4acgVf X3qyycFqIqrilfQudd4bR ZwkgULrarQhzYQcN8jmwX CVlRI5zCLvW3e6V4akiVz 0Fxr1VJHxlBg7NPYjIoir YXJkXGludGJsXHFjIDJcY 2VsbFxwYXJkXGludGJsXH JwLCbeuVQyuNKakIS3BZa uIFrzSCoimBAbYUAga1k4 ld25MTwqFEQ0cf04OIIkc IRaATD1Q1d1qvMcAAOewE WmiBXfGYTtcLZqUGn5rfJ hZGRmcjNcdHJwYWRkcjEw GUz1imOvDUIyYwYmR2vwe gDtoLtoztFunq1tQEzriL GqTGQpGIJrMXBhi76tDBH eMsVobsXiCeWook0ojxTt M2fsqaYmBfsopmUpcs7jO WbwbIGvkhEggNDhC8miaV ZZhBE1zEQnI1i5J7xxcGl 4GcC0CHWghSp0NLGgGlov iJCyNYM5HFQiYBHmf71xF ZOxMrCoqpuhLoLvru4eng ExD1wbwbHkamtvqmHxhg1 uZVxjbGJyZHJiXGJyZHJu v14fIJFmteFmyTGtkArci YZ6y6ufZXCrA7jyeAbAyW T5vUHkEZHsZ9GeuVj9YUK yNJCpjpBsaY73QhipsNAz I5diNUhrFLZbsyOtaM38Q ycltKAxF8Oqw17oXPTadO xrjV04Vbjqgd84VXHlbfA ccWNccGFyXHFsIENvbWJp bfLoFOTmiBMiFEZgl2NyE dhvRWGcWG5KFZmxF8IGZr TjECKRSIM7XMWRQUtwIFA prXCqSXCeo0ufSPSlxBMn UCI1S5f9poLlDVVhaTTes DGsYANbyTRdYPe1tuWjLG RmcjNcdHJwYWRkcjEwNVx 2agVqNYLlApQoR1nzxoNf dFulirWgub7vDHlwmWQcH IZrXKLySPGsz57kLLUbEk XhvgYaSkVkre0ukhDeL0b msvQgRipgjqAnqb4jKAwt dVGltpYfbKUqP7yaiPNAf QU0mPVdS9o2U7fsfSu6Mz VoPYIcfAb4HYQ5TJqooAK nFBA6IIEmVZInw68vLJPz PgBhjaljDlKtme3sliFwU 4qotbYqlcehfwUrvn7jQG hukFJcGSWjCEDpDACfl28 lXGNsdmVydGFsdFxjbGZ0 m1lrGGTzS9ogtYyInYO9m KOrZWJlC2SamPs6ULRjGQ SmlzSkvN75UhkhvUFpHZ8 7KVmxV5AcouAuW4XssZyd YXJkXGludGJsXHFjIElud TIioJZofNL1zD4xFXWlrG oloK05Lctgbm51YNYho0j gAGIssLJjQEU2F0c3owNh ZGRmbDNcdHJwYWRkbDEwN Rx7orVbQKPoexTubVTxPR YbxrOpXQf3kpJnHOQsByH qV8hvmfIthCkpfnYpjg8o ZVxjbGJyZHJsXGJyZHJub 25lXGNsYnJkcnJcYnJkcm 3pqzMfL9exeiVoSsnvcpH wzl0dLHodsEIajzIlsEYe L0ypnTTXwDL9sQEjO6v7B 1eahOy8TrRmVGMhsKz1LE Z0LKbvuDMzUGS8LEMkSAV mw26wXBGmTjDczytsZoNr mh2epmZwR9sutwBozeqzl yHjgu9kULbymHJrJFWyKJ NiQKGlb46bFLYzwwCeiRF uoYsayOK1w9eeCGShP7pe mCdWoEP2ePNxWTJuL8Yxx Bl1VHQmXYExruCfqX95Vc xccWMgMCwyXGNlbGxccGF yZFxpbnRibFxxYyBOZWdh uYr7RJeeKBblEMqqbVFwA HVeu5g6en77DUgmDPE8hw 32CMTlcZVjJHT7N2g2hiV hZGRmbDNcdHJwYWRkbDEw YUh8szOuNSNiniKwcHIjK BZmzaFgDAd0yiRtPUPoOb HcW1xptyOrcEiuomIqod7 uZVxjbGJyZHJsXGJyZHJu y77uBWMgCjNuqgUzUdQzm l5lexRvY0twcjOjBtuncw Dthd3cMPebuLOsqhBnzMW pK4hhhLTAhDK5rCNmX9l9 O2cjqUu7HrGeDBGbmDk5Q ZD0QHxqwAClEJF4LZXsUL Ovx72pHWCbKfHfihdkVvM xql1izlOdG7hqdhPxopul etGhcp4mTNroxECtZUNkQ QIrTNZsi10cIRDhqxQwmI VjqVjjuFJ0h7mrOEAyD7k pcHhIbSZ1xPYcKLGoV4Ua iPg0RODeAXIlhxRxpF88V mxvaYBgJxm3QYUeCsj8YT qwX3UpmKkkEUElRPywfQJ qFJKzMCEng1f2zHQlKRPc eAzbmA31Jsljvt09NEJhe mRccWNccGFyXHFsIEhFUi 0yIGlzIGRldGVybWluZWQ yrLSmjailMC5kPXiaa6Ch wXvyVTCol0PnyNAgep0rN XNzLiAgVGhlIGluaXRpYW wgZXZhbHVhdGlvbiBpcyB gHXRme9IhPAJfeXQljqwm HD0hwM2gqE5yDU34uR6vn RvjUTQkS0gyuNP7PZQ9qH DlRIXxaqWqLye7AS8epd5 irS5wPVmyHV11mJ9GCCUo U30wiLOngaXvCt6auQHmM 7xttxWeNJX7NCEQOGJpBM Ibsc69JWNdSXXcgdSeshH pIHdpdGggdGhlIFVsdHJh OjkiumEElvv8UGEjJLxuK EFCIERldGVjdGlvbiBLaX QgKFZlbnRhbmEpLiBUaGl nJDgbQEPynI4kcACnUZKp oJouyQKlcuMpfGK0wFPvp HvzTJKmRUa0qGOeJA4xC3 H0bQMhWCidXS8iZSUeHPW 5OVcrwZ5eXCFfmvTci2Ka yIr2MBEeRrtrn5GzwL2pg hlpHoPfMTpun0YvguGbvX u7xqJbidFbS09oh9ceWOM iYRIsfD1svJ4pTBAtu4Nx XWYpVEGbNWUwRIBtmA3vr ZFrZQQmfFn3f0WrdJHkAu hly7KcpC3zsmatUDEyCSS yZWZsZXhpdmVseSBzdHVk sSFkRHpdnGsqAfw7u8Ecj 2NlbmNlIGluLXNpdHUgaH licmlkaXphdGlvbiAoRkl TSCkgYXNzYXkuXHBhclxw OTAsUPdokqOtw4QahNIyO E3jDyXmiQVjSg1irWXvNR 2fWWXfcQPxdqCtfNNmpm9 yCDIePNDkYj7vzGQdoI3u Gnl7CPHeJNWmzzDfLxlzZ PLkGgNxHQPcYXCmh7S4QQ 2dKT8hyNShbbIdI86xtOL sqFFnVEyvV9xpmFF5YGnf cHJvdGVpbiBleHByZXNza U0wRKZpu2dnnKH8TVwdoS JvdGVpbiBleHByZXNzaW9 lBYYsCZJncbJplh8feUUx g000wo7iRRExniVagqCqE KRkocFmJ73zdXYzqCYqrg Niaq52gTzfSWn1AOWhIPQ mkG2njEmaFLB4MVq8PWOp s29nw1TvsMgbJXGcs9S6W fRuEDuzXCWbu2MwuxmhtX JgbH7heLScLBNpVTNgbBU iKQVgAs1ueM34cyTuRYRn s5GtgB6hXXNhTUPdUGJQr 4wdENepTT5jHJUmTFFoM2 YuOAFzgLwaqX5vtNP2orU nonCouVrwNGDzGTInQ3He WAVlX6upxPbxe0EfY5uvg nzsSWbmG65yx9xuL6vkuo 8zbqWsS8ViCBUctU3rYB9 rAJRtu9KtpkjhZw3oUWwQ ChGlf9VdmKFnONokTGllx mFzaXZlIGJyZWFzdCBjYW 5jZXIpOlxwYXJccGFyIEh VZe1eP43ndJcgdTRnWE9C J3SLHFWOFWsNXjJqWWCWR DTlRVh7NJXcbfSWytQofB FpbmluZyBpcyBvYnNlcnZ jXRPqhlTsXO9uddNrNLTn uUChbgbtJnO4tCM0VIfcA OxpK53krTluvOPbJA5nWC bdWVFamJ52SAHufzSprHE lNzxmXJHlKOA2kWToiY3r WLOuTU3wXJifl5Rhg2Diy LZiq9ThS0IsnMYhRANrpr xwYXIgTkVHQVRJVkUgSEV SJaAFRQMFAKxcYnt3IUIj trQCucDujNCiIIZqSL0su CMcBI1rFCX3VHdqfQ8eGI RoYXQgaXMgZmFpbnQgcGV pL7ElbHqikAUdMD7mRQgy dGhpbiBncmVhdGVyIHRoY M6vYAImFM7cVJC4dC3jPC NlbGxzLlxwYXJccGFyIEV DNEsSP8MNFPAXELAcZNPO E9SfWMRoKAlubKSfVINcj tT0iKGrwoTplCxlsQOeGB 1icmFuZSBzdGFpbmluZyB 1qVV8ANabCBUvdGFbMTKb ABXbDUF7UXDmUSCmHL1lH OOzXHNtUBOyQVU5mZIygT 9tQ2XoQWVgiiQ8uAOaNZF kNNSbPuG6tT6eibYoZFuy bdZcxuHmsBGptP1oXKWus nRpYWwgbWVtYnJhbmUgc3 FltL8cztqzzUgiqGJuwbJ cjtKzbpNoTMSqVRQ5aKRz yD8okYUcdrP3zCCyQW2lR GVxdWFsIHRvIDEwJSBvZi K1pL4zyqRbZKpfza2tjYI nIBDbgvZGA5TVIDdINPCY GADcRPGKI0VcSHTjLAmhy LYxKJFdujO8iBOrrlWjnQ glyYVrZE7exyOaPYKgnTY lkzhuPbK4jPX3UQuhCCIe bXBsZXRlLCBpbnRlbnNlL VDkrsDwa2l8xWlsOUilHF V5OELpbEzdoeMoYWVab8W hsRLvg3FlF2YygXKwXHMf lmgqOCKcb9QaMUXmp9NoH XVaZ9IvF4vfCI5osGIafT GkmHahEFYQC59eG0KMJDr 7cMKgzZezEBNue9LwDIYl UFIvSGVyMiBvZiBmaXhhd PyeucQtkxIkZKUmnkI6pY WrfVAdeRHfZZFcQPJun9Z nNVxianXsq4XvKTWasEGu r0VeChPgw2RupjUtxoQaj HVvbM1yUiYxsB09noHeq8 XnSf1olZIrzQ4iONSbiik iVyKbp7AcJPMxWcLwFX4a JCY5RYMLDGXRpGYbh7etz 3QsIEFuYXRvbWljIFBhdG gsyP0vvE3wcEIeJCMoNDr wYXJ9 Clinical Information (test code = [id number]) 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] Gross Description (test code = [id number]) d7clqLKsZNZxcSJOXPT3X UBtWC7uyMqfgEf1vVnjNC LmmcL5vMCvILnoj3gbWFE 8v2dakpTLXnhmKQOpJH9b MFaeTVBnQI2kNbAbTTYwJ mYxXHBhcGVydzEyMjQwXH BknEHfuSI9MZHhIT9hehg cQOwdTWbxMKGabiA6TLWr yMHtF3VzWUQeNG3ipgerE MU8TVALSbetOk0xmQOfiQ tcZjFcZmNoYXJzZXQwXGZ ezNluMGNtDOj9sV9DUfnp F77ud2S0Udw6DCEmZGPkE 0FhBL7kCIIgcDPvU48CCi yvSDM2ZKKQCbxjXraomVk gt2OzjAWlZNUyAJszvNVm NTEwMDAgXFxkYiBPVlIgI iB8NfP5JucaGdB6BPs6YO ROQJYaPzl7LQO7ITW3HHi 8FLJbIL6hUDievRPwUIhj HyvaYDvyU231GPupKRBhR 2IiI1ZsVDjsZrAiTThyGS QfOXKpODdpEGAcF7QADFE yRKH9BvW7SPYpYDs1MFqi Q7VSDCNzYLJsZvZiQMLrX bR4KEq5IWFKKb5vDHj3RD O8JNJpOQY9GHazJJSbPUD gMiBcXHNzIDMgXFxmbCBc LF3kgNsqDXFtAH8CNNVkE YzrDZArYrOnY1WMT8cLIQ 4gQVxsdHJjaFxmczIyXHB zbhSZRyobJQRgKP0XJACh TNwmCOu2suVfVOJeDwWeH UZbT52dx2YJn2TpGI3LEL o4bnMvrlyysT0eYEAsstK gDQpcZnMyMFxwYXIgDQpc Z1LfTEFzWSVpuJDrURFlp GDkeuRcOGk4SRMfCmFlx1 coVb9yDZhijALne1TysxX 8aLMzQFJrdeK8tDBidVjl biBsYWJlbGVkIHdpdGggd GhlIHBhdGllbnQncyBuYW 3nTMYZZKZikN7zBNLkJPD PBsJyviJoMwGqMk7xbKEY dC4xiuLmSU8uZPBebwOye 2JaIV2bUXLuo5ptG9ghUT SuAZisJM81YW0vWVtfwnT rhbRrKCWgj3fyAGIhr0W0 ECVpVV1fGTkoYW7sFTgwR V41CDUtYX2vN77rTFMlFS PiALZgCUOhHISpl36hqQa tWRFxIE71OUQ8oPWpeJLl ZMWiNyJdyMuez1MdNhMQm VXfs4DqQ8qrNZ6bnUKwt0 DgtMz6uOLqEJHooDpuQXw 3KFDdndHbBSFbDV3zvpTk n5OfcPrxjxWfqtPJIIdbZ c0rwY82lD6aSISrC5KmP3 ahmYLhrWbzjm4whZZjUV4 KXHBhciANClxjZjAgSmFt xCAyZ7CqYHEoG6xgGC9ZV BQ2VgW5FdBtVnRmIVp3Uc NjOW6ujNGcOO9THOQuBcS kBZZgU3zbWZTcGM8UUBUg MSANClxlcGljTmVzdERvY sZ2FHTqmLIlXXI5ZO5tdH ylWNKmWLb5DMxjDKYpX5H wJ0HlUGnsYiVwFKckZSDf RWMpECwcCQIkG3HBXDCxH JK6KxA0ARQdPMx5ZXngU9 BQPFRsGWSrCmBbIKR6OhO 3FGa3PCBQQg9hTOr3DBjs IAd6OAO3DHwuTEUbGMZvN iBcXHNzIDMgXFxmbCBcXG 1wtDluUNGnDYVyRZI1FNG onNTGj5XjQITeVPgeA0Bl XGZzMjJcZnMyMCBTUEVDS V4SDpHNSENrCyAojTScUM 3KZJWchpAgBNqqiPrutM1 quAZwH8ikNlNhJkadhAtt TmVzdERvYzEgDQpcbHRyc GFyXGxpbjBccmluMFxzYj HsBZKluIJGk1YbEHAHPrm mczIwIFNwZWNpbWVuIEIg pIOzykCpKEs7OOIkZmFte 7dfeJHwLOwjDSU4sQUtMX CzRLPnBOHgIC19V4YtilO tZSwgVUggbnVtYmVyLCAi Jn8nEZcqXsNfZX3wUIT6T LBtRKfywZElu3PbIQYdCJ Shp05qtFU5rxXaWjEdpyE hO8sdLNpdmNBih2NqwBUe XYVkmhqvjW2uVeTyp21bz YKyKAp7jZLqUMVqnqZsEv OuK81vuhHyHIi5BcUotZZ eSsFaeUGuIybvO61ldX0u LOdzdeLxEEDnCU9pCFSfT DJiZUHiROC8IWOaZMbgPC 84eiCsiwOzJykeNMH6NJK wQW9kORWePSChnVPbyS3h biBpcyBlbnRpcmVseSBzd NXssZG6GLNecC7vQsXrRt JhYGMhwHoyz2miCuDLgX1 2cq0rRNiyBAVtXZquaZTb V7U1fT2kPjodDHArOZuke 2GsKKRrhLPKz8ExML3VJD BhciANClxzYTMwXGVwaWN Iy7PiKWEYVxwxSIQsEMXW SPBnnsruGTEhQAXXS8EkY 20NClxlcGljTmVzdERvYz M5UXPkdKNdRTP6VF9caPo tHROdS3JiR2RuqoJ7FHSk qbANUmnfAXPrJC8WLCToF jIgDQp9 Intraoperative Consultation (test code = [id number]) x2xgpPGqCNAekDGEBYK9A BFuNM1cpBioqQw0jJouON UxugV4xCAaQFkdr0oyFQG 4k4pacsLYDxuzELUvGJ5b ZHdoBWPxQC3zJwEbOIFdS mYxXHBhcGVydzEyMjQwXH DyqEMarYJ8FRGkAP7hpgn oRWdiWJfxTWLnjkG2QMVy qOHyH8YtCHBwYC1qyxfyW PL8DIDMDcjfDq1skNFbbX tcZjFcZmNoYXJzZXQwXGZ lnDnoRFGgVWf4yN8UBflx XZV0REJEAvqrAnbehSulp 2VjdCBcXHNnIFxcaWQgNT EwMDEgXFxkYiBPVlIgIiA 4HqN8OfzcPcS7RRi3KIXN SRPiCxf0UYV3NBV3CXp6L VBbIB9cSQvinYMjFDxdEs ckKSyeR253LApnZUXfF7K fL3IwFQaaGlJyTSsrVBCw GMTvVHyeJQVaV4NTYAJlS EI4ElF0JVXgQOi7FWcqD0 ZTICIgIDIzMzEwNTQxIiA 2AOm0HKZKRr1iKZb7CSTg EABeJyA9PUvaWRDvLKXrO iBcXHNzIDMgXFxmbCBcXG 8bkJufKMSsVH6QILAySAw gPXEnYjPzN0ZLY2cXMG1v QVxsdHJjaFxmczIyXHBhc aABAckhFGCcZF8QGQBrCT uiTEn1ehEkREBvGxQrUIR xJ94dr2EWs4JkRE0XEHa5 qqEujysvxY0iPAHaisCvZ QzdNfUpGTLUXTpoCe6XAJ GpQ5ANDqAeCLTUGhMWXyD aPvZmIf1XDNCFYC1PSfmy QklPUFNZOlxwYXIgDQogI KApMU8aXRVVONcADRzAID PEAKdTMmKPYkJSDH2YMZ6 OIFRPVUNIIFBSRVBBUkFU HU8ZNbswXpOVJ7OtIYJMZ IIQEBBUB1siANSaIOioDS NgUK1nVz3jIcDTMpIFDHR TH6EWV52ySTAUSq8SWZZZ DHfWA44ZMCXDB4OUTBjmq HDrCV1BZDDgwnSMXmLcp6 CklGNjimWoy0X8QAZigR7 aRDJaPFhrlYwvu45zED6a XQ4kIGWmUAA0CWP1CrdyA Q7qYFMbilRuhm3fwWegix PmLyNcEYMwGVZjY6knl6S booRxaQx8wrShyvSbhGZ9 aWVudCBpZGVudGlmaWNhd BusmdA3PHKnhHMsFn2jbB VkLlxwYXIgDQpccGFyIA0 OHYVgKYntQFVskMZOt9Ao MEwvlLW0IKwznR78tTGzI C3FXMcgyFNhjAFaDAJgXV VuIEZlbGljZWxsYSwgTUQ hJI3oGB4bWAKxMs1UTFLc pZMBESG4FK9iNUvcGZJnH 1HbU8CmtxC3r0xffVuci3 QzaTWxAN9gnKPnBD7NQTG hcmQgDQpcZnMyMiANCn0= Disclaimer (test code = [id number]) s7vdhEOjYJHyz6goPLGqb GFuZzEwMzNcZnRuYmpcdW ZpRUwsqnQeYUsto2RdC9K yMjAwMFxhbnNpXGRlZmxh lwwxAZXmHJB6ktZdNKZzZ GqqUJGlEZnmTb1diEPevB yqVdKaWUFzu1nbsuKLYOc lXpLjC481VKJrEIqjb3tj q7ArXVMrzWWdm7U5DIBYz dddpMg3lUwnN54ux8V2Tk fvT2wuIDUxGCPfG9PrUR2 eSZJzWli3NWJ8AEK7IJFo AYMpK4ZdEI0dERXmcNYtB Br5c5lmsHomBDFbOIW6k0 aeKVnyxqDyBC4oli2leXf 1o3qhjdSlIPKgRHSngIOP MGOoC6RfvGgkUj3swJp9q YbeQafcKXS0Xyp1DA8edn 04pcf6jDxrBAShznboZiM 4ISlzSEAejymjYBq4COeu VJRuwSA3VIWpjWIbO4AtB CIsBI1jpkl2WEO9JJhfFS McIuE2BHDxpMBrDHKyvSx zUZpmx965TAK6QxRuHN9t U5Ckd6V3vP8svTLtXWWyk KKcQeOwQGGwjw3xnIElXC yuf9HlUOR2nsZ3eFJdzAZ mFXAiLR16Vctxa2GhTyal k1AlW73bgZV1UNfgb2pfX D8uFvR2opTeQMdmx6sqzJ 9nXiM5JNvvDQ2qMQ5zNCW rlY4plzpxWLVtXhSjvbzg RWCboRttbzWzVw3txWahA VA0OSpdN9ytaD5jIkD8KX zmM9znhX3fNYi5CFdijLX 5NOGatH9aJT7qxcvdt0rj FYrqSWhfKTEcsxX5hjP5Y CGghKIyC4ZtvQ8jNQHoHC 5pnxscf2csMFF7RCsaYWK eLIK8QqQdHUWci3Xhvwt4 VaNqz3XjtVGdVBlkF48oo 366IPDiapTsH0zomSJxnh przUBjjzekCQmdkoF7WBK urvBxb7AkTGMpDQN7IJli OAvtuQVqUIKzqSvsw2ywH 3RscGFyXHBsYWluXGYxXG ZzMjBcbGFuZzEwMzNcaGl jaFxmMVxkYmNoXGYxXGxv T7nrXhPfZ0GqWWJpIhWxr JNbM4gzLJtakcJoYVXiqv NksAY2MDknU8d5AXGevzC ghFn4btOfXjDuUCEtSDM3 IOncmSLzQSZnl9Wojikul CLxCt6vrLVzASOweZ3sVW UqQVAlGQazEM8jtAz6IZB XiHQsaXEwMgPUEJGlIU12 fqZrNVNHqpmpl5U9HNayA KEgs9DnvLWlV2cjs0TgUM Iut95mEZ0wu8N2w3qkIDS 0FF2so1GfKIIywAGhmXYo APLwh8Lglqkgg8YmBEKzt cRtk2WePIJxdeTwtNZbFK KwjiQfdz4lhwAzQZKyETH jI0FdatghdFnbpsPcAELo xs7nojKhSHL2LKKXYXCqF LPuz2BeeJ2iiDHQZFL9qP Ijsd4jqbZHbAFxUOWlsk5 3OUNbAL5qL4krBGGwYDFy taRpzBBbo6CfHWMbhNH4f DGvTO7FWwKJm02oAGGeDH ELlhCiEJXjkHisqPX2lqK 2pL8nAKzMONGnQlt+IFRo BEOGNXScXK1twqUmd9Clg sCzaVrdOWZbnFVfm4AkaP Rob9MocSmnu5TijNFqdEN eXI6xATGlplvzVEGhJJBO NrOQUKVoreX7r2SfCNAoV PTaIHX7qDddrfq1VPCsaF 5uJMSdT3slcfycJRutCVU zk8ZhlV2bhDMZlBSuc7Sx xHNweNNLdTUyEF0zygGwY NrUJVyTOUI5zxNuVKKeu8 GjAOgaS6jlZ79ehDftkYe 7oXD6ZYS2wU2aEus+IFxw YXJccGFyIEFwcHJvcHJpY QOhxUtiojTzI3KipjAudX 7hmQDzgmNzHC9mJI5nY3C 4tMEtKXLssxGeb6ieVVyz dmUgYmVlbiByZXZpZXdlZ ZXku0JxYHgjNWI1DYmnzl BpbmNsdWRpbmcgSCZFLCB WcPWjvNSnCVM2TMwnkkUp bvUxMQ5kaT4hcWliuQ1qg NTuyFF3bxnoPRKkCITzsV fiWCUmSA2hcTpfqH1xSsT uGbZwNVfgVG1xDZWlO8oc bIDtGAWaNEKkY2yjTsAzy I5ccRsuSAjjWqQjLbYsIZ xwYXJccGFyXHBsYWluXGY xXGZzMjBcbGFuZzEwMzNc aGljaFxmMVxkYmNoXGYxX SfiC1umAjFiA7CoBMEaWb WxhUKuC3liQNmaXAN1KZY vCL3fgFMdLF67vLMnk1nl OIudzKcxsn6aB87uyMZiT BytrExfMPEkp60wo2HpLD JswbPqqr1dJYIkwdU7tF6 sZSBzbGlkZSBpbWFnZXMg k6OiITyfyVRewbRjIFvoC JCxLCXjmTIeupS3jdYitj QsdqIlMTRotDtnORKll6F yIKYsJTkcz9Tosk2fyKFj PCExaxJAmUddzVYrkL2pG 1PcOQExUWHznw0rQFIwuT 7xKXgxs4ExtorwOIIzIUH vCCEikjYyll1nNONiaYIQ NQ8GXVfnlWCaj2XhytPjQ 5yVLNR6KSKyBeJnZebvMY HmuYCftBDyBVVxga00RSN hiG5thEglHROwjE7rsM4w gWsgbD3cGpEkQcRaTUlzW T1pSLHkH6onfNUsYRHqLI GsD7oeLwEbjD2ifTojQWf nNyNeUbOeLBkxVKH3lB== Embedded Images (test code = [id number]) [facility] [id number] 22:58:22* Test Item Value Reference Range Interpretation Comme nts Case Report (test code = [id number]) Surgical Pathology ?Case: [id number] ? Authorizing Provider: ?Natalie Ridley MD ?Collected: ? 03/31/2023 1517 ?Ordering Location: ? ? [facility] OR ? Received: ?03/31/2023 1526 ? Department ? Pathologist: ? Sandra Tyler MD ?Intraop: ? Sandra Tyler MD ?Specimens: ? 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 Final Diagnosis (test code = [id number]) [id number] GFuZzEwMzNcZnRuYmpcdW MxIHtccnRmMVxlcGljMTA 9NJFyMR0ggDlvpWt5cHnq LFVjjcD4zUBqOYfrw9edQ GP4e3qbuqqhKKKcLHtjFd 9udHRibHtcZjAgQXJpYWw 7fV59FWTseM7xgDWkFNo4 XHBhcGVydzEyMjQwXHBhc SGerVG5OGKiAJ7kubocVB skZVehADZazzJ3EQWmwWS mU5JkUJBlKA2kldkbYLV8 WDvqPMCeKQV8BrUuXNRrv 6Bnxnh4YqSmgQAuEStufP FpblxmczIwXHBhciBBLiw gAg2fMv8LOFPsA7MFVkJj XINKAiDVXvFwXyLiQw7EG FQJFJ9FTcfjF03MRJXJCM 9NWTpccGFyXGxpMzYwXGZ zRUY8VGynzM5oLlNmAYVx NE2rLZXWTTBGAMVZHqNAD YITW3TMEnULGa6VHPreN1 4OG8cJWYUGSNCJXQSTEUD VKOQYXISCDxjJHU4mUTJA SOYDK85HRR9OIVuyATOdn PknUYCpBGaojG2kTGAsxx dgOJAlLFT3StU1HBFOn1P doLTtMG4hUWM0SQLej10m PQ2RWEU7CcM5RqTdIOw4E lAzIK3dgEZxRXKvdv17UV W7KuHdp9G9KDQtXvQrGLG dBN6cnKmkXYYiYY3zQLPe D1kmsC7oezc1EaAaFLGrR xL8LAYxvbJ2Trl5ESCbPV iwv7hfx3ZpL8TqpVJwqGu 7w1krLHEpUcF3tLHoXLvz F8qdmiOwiMDsBZXjBDd2b MvrWpZiNCPbz8zyaqNuGw NoYXJzZXQwIENhbGlicmk 4gL30LXUdxA0keNRpBJfj rpReXzQ8ZSabVDBlRdD3M TCzsIUcGMTjZ1jnQIWoZC qkBRIiTNqfvTXoPBK4iAc uz8U3iXWnyTUmaSgpWvSj NpJaYBLHm5LaLQr8hWgpL 3TwCXSoDjN6kRYyQJMsWK rvBXPeCFFbhaN6oD59HCy auyH5fYGae5Sqm16qu772 wY8daWNqKRF7OGYmJQVdb RTdSLWwIJK4ZOKmoPAnD6 wyDOBwIY6pwmxaLUumTFp jALNptXZ0YRGfmGEaI5Pt MXOqGUoqYCUirbl8LvRpJ t2nzHHovJqzJKqvq9gyk1 vmaRFfTgb5CVBgSvLrXix hVMjki8Qlc3htAZFacz3n XYD5cLKdiRssx3U3yVKxP PXwpCZfbdZqWFKnSxA0BA bzMV3kwh42FVTsLXP0yh9 ybGNccGdicmRyaGVhZFxw A2XbGCTaz732HYZkY0LeL GJcp0U6nbFxFxUaIVYfsU T5nhU5RWMmUTf0cGDrodB 4vmEczYEdZ0bocX5mSCUs SA9nrhoxw5jbGHakKRaiZ OKvqGC0tlD1RDXtrRWkK7 YicO7aGEUrDFrrHFSvmol 8NiHnBr7djFWqnOaiGGcs YmtwYWdlXHBnbmNvbnRcc GduZGVjXHBsYWluXHBsYW luXGYwXGZzMjRccWxccGx ccL4tSnRiJiIuPCluDB8u DEUbR8renGBbYCKkJSRyM 6boCqLteD6pkUcfBExcMm JcZnMyMFxwYXIgSSBoYXZ lIHBlcnNvbmFsbHkgcmV2 cLN2GJDpZUtwJYDrXXFbw LIkgv5reVrgVUZoUR5eCH FncmVlIHdpdGggYWxsIHN 0YXRlbWVudHMgbWFkZSBi eSByZXNpZGVudHMsIGZlb Baxl8Aks4FziTE2hK2zr0 ymd5WfJUQcgYM4TZ28fjJ 8dB5fIEMaZF4uBYMnJC6b rWKqiJNqDLSka83emZrob yByZXBvcnQuXHBsYWluXG YyXGZzMjhcbGFuZzEwMzN caGljaFxmMlxkYmNoXGYy WQneU2ksEeYmYmJbSOkuV XJ9fQ== Final Diagnosis Comment (test code = [id number]) r9extLHgTVPjoZUhDRBxY 0iukdVeQVMxnXCpR4Bzyz hcKKiiTI1pYH1fqGtlzGU jwODlZHIjZnPkt0bku507 eECbt1kqDBYTmovubAr5g PiyA50ug6M5AsoiA8mjKU NhRZmiuqBohbL0ABSxpRT oUGq4HMIwmLPvylRkEhVw KQKbcWYpwGU5JSZcJO2xs exgNFlzJLsqOEVovaR5HQ OloFHfZ1KuYRMaRF5igpp xGTV9XRkvFRWmBEE5EiKk UJUai6Wwkwp0ByCbyQEdS FxwbGFpblxmczIwIFNlY3 Syr14qTMOwl2qlZl1dYVQ pbnZvbHZlZCBieSBtZXRh e1QghIlrYWRrWC6jV9RxB 5njv81vUApeqUTxEFYuaS PcyaRlk0YkoP2xfXOuYEG eilMzWQVxMO3lARFiZWFm POzyALArw77griWiaFQpc NLhRKPiZPHpDBS1W1YnhL xoJYnrCcZjDH80bXO1tO0 lXCD2cFFxIH6nmo4vs7Xa oW68inOzPIHhvKc1AU2em BGyxBEqYW58M0mjeOepGW HzFQCkq4HuX6DpUmMhPw7 atAStqpFjfERjW2A1vlUk BKChPIOij5Blhx6peVpxj GGsuUIrcY2kgSRjLADyTV Tvl11xVvMTcDWxRIVaJOW bWKW3zU0ecELtaIsuRXUc rZigUNqdQBztad55fv4ud 1RitwL6DDctV4duc94jtQ twDTwdGCSqj999cRuwKD2 zGK24T2zys8hvDXVbPNAz vcVeeuXplZL6z2AuAuXKX 8P2pPTsJAExyQr4g2CfYe GqtXi2deOkJIIlFLHvb7F eII8gYCZyiibcJHDxUmgq aB7noP0ahZiutU8zcMZod VF3qdfvOYLul0IiDRQ6SV locPhxIGY4tW7jSDWlvDa aXKLsaR2hu6HhKYAoTSB9 kd3wOyHme1KqzFd4qMK2N GZvciBDSzcsIEdBVEEtMy wgRVIsIGFuZCBQUiwgYW5 mMXSaVDEgOTuifTn0BFGx l0HvW3atVAahXUMYRUgvZ RVeOHYZGYNcGC3zZYJhTL Ixl5AezH6wh4seFhMeQFP 3kRIwbeRpdpZlpX4isS4x cRxlci61mAOcLSG0dUVis tYfUOFtKNXkt0Hva8tbNA 3qFHFvFKTaoJHzdaquoV2 uXHBhclxwYXIgQnJlYXN0 FYTmk10auehjnnMntF22o e7isUEjrfVvy6MxDOUzJZ Zwz7TqTZKhw03bSzbzN0k hGrCct3e6uPK5oTZcKy6y wE25cP1kHEDlt9FlkUYmV YIiQTNwmBNsZKIfV3FwM2 lmaWVkKTpccGFyXHBhciA yTGnfOFEUOWRmv3b1cOIm RBXzICGiNOR2yPJmo6r4u TO3TBZvlWXeq7IcX9VwfH FocP9sHKVkrHOlmvAwkBX tsaGepGMsgjphT3vfXGQc OIUtHVzhboJmKBZhg4GbD GQtIaDsKX4yM8aaNSAvBU EjPP26VBAgIUyfN87ujJJ vbCBjZWxscyBhYnNlbnQu XHBhciAgLSBcYiBQUiBwb 1MtuOj2UHwzVZUylaSfcV t4GCiwmFgiTHLcPJV3tC1 zMXNduZniGQ5dESNfHSOf NV83Y3ehOJHdl8TccW1tx mdccGFyICAgIEFsbHJlZC LuU32rBKC8NGooMgO0KZo ccGFyICAgIEludGVybmFs NQRhyjOph4wmL4AsgVCaE JWmNE60FvzkSCSqPL8tOP CeLXZlTUBrnkX5DF2aX7K 5vSJbQQivDbgnGMJvHQ5h CFR2pG9dCXAosAryTW5bk JIpZB4vjJWqi4SwvB5bij dccGFyXGNmMVxwYXIgQWx tPIV2iJXwseHmHFKahoPa t9nqYWYyf7hpKXDeqn8af anquZMnieQaP5Dpeef1qZ 4gXHBhclxjZjBccGFyXGZ zMjIgIFxwYXJcZnMyMCBF Ph9MOtTYmQW2qTKqwYShK SG9SHBfbY8bZSH7a7okUf DhwqWypD63co2ohvvboKH 7jTWzKXLfQHihn1n4cZRn y33iN0jyhwGiLAJhlUpkl 3UjAZMxXSNLNSZex57lZP RPSCBtsaCbCWInM4nqmoB lCAFnEzGQEQWmFMJlxe97 ZWQpIHdpdGggdGhlIFVsd QQfBjoyobGXqia4JTKzVE wgREFCIERldGVjdGlvbiB LaXQgKFZlbnRhbmEpLiAg QHOwoo5heqwreQFlyaNiR RMxiqAkMU1pQAWzl4e1hH XeACKxqqJux5biRHKnFAY 8k0LwJhPmHRniHNFecuIo su4vvpJjRH6vRUVgcXJev FBzoMUvFGBzMrTqlrN6DP fnSOP8FEPnCCZli3PqeR0 cMSCyDARKIJ1TT7VRAIl2 aWRlbGluZXMgdXNpbmcgZ j2qvQSwfI1fCqz2OTXyjI HzKAMffL7sDN1wRJCdBVS mi4CxwIgaxwJdKKVuomtm YXIgVGhlIGNyaXRlcmlhI BPjKOAxWm3wZWPbpD9kjB qvRxKXMz3RCqOGyM83tc9 wnKMrdUL1hhjycrDfoIn9 gfAnlnVeoA9yQUHlq3KrP A6iGXV6mQDuQQQhHEATYR AvQVNDTyBndWlkZWxpbmV aQpszLMJmmXVrHUQyf2c9 tLMdYWsnXAA0YCLqxYobd qTbdsGavZUhgRE8zbMqMX wgbmVnYXRpdmUgbGVzcyB 0aGFuIDElLlxwYXJccGFy JFMzhUObDNLTG07qLDjku KGuFLVznzh7oo04MMq2dm BhZGRmdDNcdHJwYWRkZmw zXHRycGFkZGwxMDVcdHJw YWRkZnIzXHRycGFkZHIxM DVcdHJwYWRkZmIzXGNsYn NteeEeEcPsyi7mhuKoS7c pedTpyBosfhPkyq9xJVty fKHcZWWoMUVsBQEmk59jN JLtRwBlujAsPrBxnu5pwi TtP9o3XFI3XEi9EYHhOcL gG3yxbOigUGPmi1iqFIMb LAL9XvwfRBedbATuPzRbH 6zszmTzyRbzllKkof8sVO qkqWFxZTShTVHrBPTye39 aKCGzMxVlgaGoAeGqos4m paCrI5qlokFsSixnlrVwi b6dFVqoeMTkrpOszSIrM7 fmoRHKgBI5vCQrM8q0X9t mlWp5WeE1FOXdoRu3BBDi MlxwYXJkXGludGJsXHFjI FITO6EDZtEOC25wK7ARJd CpTDOZEAbbD2OdvDatNJX kXGludGJsXHFjIFBFUkNF UfVCZ7HfJK8OHVVSOnLiW 9OCUVReF0JceOessiZqkA oto2yvwJPzg1CgvAClZGC dOuJfFNPzyJYdDOYyD7i6 zkDoJAGqHRO6ZWMkdKPlU MMrS0a1kgFbAFLcTTM0HU TylRMaTQSyV9fevAYmEGE 5ONHoCOIdw04cDRGdJiEm cuicNgCcar9grgJsL7wys qYjkuprltDbwd6oJLsdbE TeMOGhTMYgNHWji28vWNN afmMhtCOikGuoqZA3s9vg FKWfV4vosQhRuFD5uXMlA xLbJ3KfdIe9FpI1ROMfGt FnytXwYvYniu4cnsKgM2k zlnXmwPkjscIddg7lOMon bKJuIYTjLCSgWTZei55pA VFuBaMordNdFcAezh1vxn WmR2i8TJF8IOj8BXPdUeB aO1nicVayFSNwp3jnEKIz RWS7SvaaFPttvPy9RwYuk GFyZFxpbnRibFxxYyAwXG NlbGxccGFyZFxpbnRibFx tXaEkHBNybTqnxW01Svfx vi04ZAEgr4auARZaqDCpS KY4J3n9hiAbHOWxhPUazO ZcBBKnaNLjGOm9joUeJLE mcjNcdHJwYWRkcjEwNVx0 jwBgSFCpWoOnT6nqggBzz HfswbPdah9dFGeurLQzGC KgLEDgHXEsg59nDJLfIzI vunYfPlVupd8ikwJkQ8in sbHlLojkvbNrbs3wSNpiq BWbiwKcpGMvT7kovESGjX R7wZEjF9y9Z4ycpCo6AyA 5LYRzuGg4MRP4KlmyaBFg BOY1IHPzIMOqk99nTRXkU aQotwtcHuCvnl3chsQiD2 buytEdynyeznAdpd2oTPd uyQDkSADnQTLeRSWyp66i EPZfvaLnqYIyuOcqeCM2c 9flSFXdX5jmpZwZxOI6oQ EoEyZeQ7SeaMp4CYIhTSG vvrJsbD10KisnxSFzPGda ZQdyGASlyoImcM54Ksrxy CCcDQBfWWJzyPauxN59Yr scnj06GVUxc7xxFWXtzBC pLPE8R9h3dcFuVNAavBPr uIXqVIYofYKmSZy8loKoQ GRmcjNcdHJwYWRkcjEwNV g3rkUkJABzKxVpO7stnwX sxLcaogMtjf0vUPpyiLNd GVJiNSUmJSKmz96yJMRlW zYbxhIrPaOymx7yifMnK0 kasaJwWpmrhiIsjj8xXKd bvIKijxMgmHPmZ2xwfZYT oEG4rIVqN2y6J9ytpQi8N fV9XEDjbHi9NVE2OkozhV CfSAR8JKNzMYAvv51cVER dTmHewkelMsVpny1zdcVq C2mpdmYkyjisobNsoy7kX VxjbGJyZHJiXGJyZHJub2 5lXGNsdmVydGFsdFxjbGZ 5p1biOSQlD6aeeXeQgUU5 eUHbKkNwX6TgmUo6CWWrO NKtrhUzzN29YxqavUYfJl sfOAbhIUIwfyGlsL67Wmn umGWfQA9kGNIfC7CnlLdf mpHypHiwg1kgnDFlk2Isq HJwYWRkZnQzXHRycGFkZG UkY1b7tgFpDZZkIRX1ZKV csINlTMRbJ6s4gxUiYKBp KHI0IQJwlLPuQRNzN5zkv THfXOB1HTYxRHGtl52dQO DyBgVczpdyCpGpdm0eiqM qP2cgchDnxpcvpeIvyw9j ZVxjbGJyZHJiXGJyZHJub 25lXGNsdmVydGFsdFxjbG V1j7fpEQThO7uesGbGeHJ 4nHGfVfOsM1DaeUk0ChW3 HWVkRkWnopLyFyMqir0aq cSoP5mjnzIjcSkgzaAhid 9uZVxjbGJyZHJyXGJyZHJ qu30lZBZoNeMwvcUaMbKo wh5wkfSeE5e0HVL8MJs1Z ZKvPpMqL3hcrUwoFFXox8 hkUOOtCBD1FlqtVAlbeDa 1MzJccGFyZFxpbnRibFxx YyAzXGNlbGxccGFyZFxpb hGpkTmeRtUvQK3gMqHoH9 FspIwtohVsmHptt1ctdDX pm0RdlWZzSTWiKvByXZHg vMHzMYZlD8k5ygCxODPvJ GX5UBTtvVEvLLUmQ2x9on IfFWRdRCC3NNNkcGCeYGO xC8cdmBPoZLM2VCWiCPFl e71lCFRaLgSlqzcsWoZsn t6mrfXkD6dcpaNfoyaexw Minv3iOWbcuLHdNCVtPHB qDUAxj54wKMBngdNiwARy tYmjyYI0g2lkQZAxY0ybk SbDlCT8iORcDrXsN2OctY q1OoF4OPPjFqIilzDuXzA rso6qvgMrI9zymlTguBgv doVihy5vIKgdsDXxAWIiM VDrXAVrn01kUNHkYiFixq AvHfTgsa6avaOaP4d8KWM 2AKb7NWLiGdMaC2mggVom JZIhf1xpSZQfBBE3DgieV LlzkIf7IdImkHNbAOimmr ZreTmsIsB8CIFehGrxmZZ aGCubwzYxkVoaHcCdYe71 FwYbL0NfySeionXflJqdn 4bocOIom0LsrJEszPDff8 h9niHaPGJapOJmeFYyGXI kZmwzXHRycGFkZGwxMDVc dHJwYWRkZnIzXHRycGFkZ HIxMDVcdHJwYWRkZmIzXG QyLbSaseRtBsWwjy9kzbH qG0jbekIzzVzhraObgn4b ZVxjbGJyZHJyXGJyZHJub 25lXGNsYnJkcmJcYnJkcm 6zwqFsI3t0UQH1OMl9PLK wMaIuR3eijNjpRNIzk0sw EROtNQG9GfroGEikbJZoD dWaT8rkghXqnVxcaoFqij 9uZVxjbGJyZHJsXGJyZHJ gl33mSMSiNpJpjqChRkPl hf2skrUjR1mhdgMeRgqsy rNmrb8nYEcvgQEuvbWapO VbR0yziCQVrSS1lEUvA1c 3A9rlnZh4JeJ8JYHowBc4 ODUzMlxwYXJkXGludGJsX WMlENAlP2UplLgkMDGeXM bhgQQxPAMmMJ52MhBtM4W vvVkvjpUgkTpgm7ylrBPj GYtuOKCvqZDai0VgaMDmI WRkZnQzXHRycGFkZGZsM1 r0koNfNIGdYLP5OEBwpOV wFUVvU9o7wgZoLIOwAFK9 VYMghMOdVZPgS0nrsDTjT PQ7WGLcYJSnl54hSQKoCz LfaebsCqIddp5qivJqU3p hvwVngclrwwYtnr9dLTkv lWOtUXOnNHCfNESxb65pY QYsnaCmaUTaeNqxqMW7g0 zmFRNhY5tgoJyXwKQ8iQJ zTtLoL0FvwIx0LhJ4ZUXw FnEhihLkDjJxxc3tneOvE 4cjtqGgoVaqwwDjrj6lER gowCXfNNBkPXXhPCVvc10 oAIRaWtCqgzKeGdJsmf5f xuIvE3v9JFO6EUn4ZFTxU gIhZ6dviUrsFUSas6wqHH ErSEM0IvdiPRedfQp2KiR ccGFyZFxpbnRibFxxYyBJ SmGLFqETETfoI4TIJqLnE ElTKVxjZWxsXHBhcmRcaW 01ZyhadXZeAM0JLF1FQUP VVO5UNZCGS9yAUFWTAXzh X4OgmEtdwoYmmLvap0wcs ACen6PsvXWhLOAwOwIhYJ UxtONpBDQnI2x5vvBnMRS cCWE4AOGmuQSzGNBjG2w6 ekVxAVOyNRL1CGBseWGbN BWdH1daaYCmLTT0ZKMmCT Dul04mOVChFgMbhocbCeO nyp3yoiLkV7qxttSzpqmo egLbqp9vLAwwxVDsCKYfU NIhFMUqf48tIEXmfaXoxU ZumAiajPX2d1rgRHQuR7p pwUpAaMC6jRExPkVfO8Zo eOc0EzX8GWOhEjAkjsTnG nBpmz7capXvR7cobtZhqX oicvMgoe0zBVcacJTyPBR dJZRcPEWuf34lRIVtVqNt irWnYeQqcw1atdEgX3n8P QV3XTi6CEBwFjWoM4zauF xvTSMwg1flRTXkMUM8Hrp tPXuzjUr3WgYnmPHcEYfl bnRibFxxYyAwXGNlbGxcc GFyZFxpbnRibFxxYyBOb2 3fSAAiyJzvzW15Ecbprk3 1YHXhy6doDYWgxHYkONP3 R8k6obIfKIXzeLGehLFqI UNwhBYuLNe6ecMyDWGwcg ZnaNQjMHKmdxFcJDb5yaR wLBPwNiSiB0kxpoCdvTlg iaEszz9cUPhuqAYxHNNlS OUqLSKxn41oSEWsYaUwnz TeOoKxpf1ygxIsZ6wejmN dCwdebyWqit8dPFsayRMt rtKvrBTqX9helEWXeKM7l LLdS0r7O8nfcXz1HsS5IU FemXh8FJIkRjhcuJOiJOE 4EFVjIBYqn00wOTIjMwVv hkacDzWkuw0wiaSaI2uqh uXqggjbiyBwvt1dIKmqvV JpSCGdFLWbRFGoc62oQKA yfzVpxESzbSsmaMY6n3vv IEQuW5kncJgBnIY3xTCrE NOkR6PdlRp6ATZfFOYuyn ThnH89AoqevITuMJnbBDb jKMAdtjSvpE84NubotCAm G0Ror5xlXAhsLVpjcTMxX HOuq3m0ie80TRt6imIbKP RmdDNcdHJwYWRkZmwzXHR ycGFkZGwxMDVcdHJwYWRk ZnIzXHRycGFkZHIxMDVcd HJwYWRkZmIzXGNsYnJkcn WmJcRpdi8hsqVdD9ghvyL yvBvzjxJvya2qYZvipVQu OZKhDSIoLLKks93wMEPaG dHxzaAwDfZusl3jtaViI1 z2JTF0UEt9RSQuWfKnO2w vkPjbCYShj5ucLLQoZJQj QjhwUSyevKQwUtVmT1lth uLcaAemuuKmtj7bQBljbV AsQFUfDQKwPYVfw53pVCL uSxAibmFmYuRgfe1lrsGp K7xzlbLpOqiiqsGqng9vF LgbrOCfkeYmdHQtZ6aapE HXmYH6vCCmT5i6U9iovNj 3Vcn0LARdaHd0FTRvXhlo YXJkXGludGJsXHFjIDJcY 2VsbFxwYXJkXGludGJsXH QnGNounXUptPSiqRH9EOl oZRcyHRpzaZHlKZGfn4w7 id69BDvhTKH2xm28BNJjn ETxBBK4Z5s5klRzRCPrmZ NwwIZpKCLkhBRgQPc7quY hZGRmcjNcdHJwYWRkcjEw VKb6qpZwXZUhKbRrE1irf mQbvOzjquNjhc3mPMmzaM SsHUTfPZVlMFRek68uBNX sVfGisjBjWlWply8sdjEu Z2dpgzRkWaishvHnwb6lL AcocPRbdhQsvABuD8nveK EQiGK0yNKhR8d0F3rmlUt 0XdS4UHEuaAr6RMQvUtui jOPmPXC5PXPaEHFjw52jY CFqLlRvgakqZjNate7sjn TsS1hfyrWqttxwcvLaja1 uZVxjbGJyZHJiXGJyZHJu a07fTKRlzdNznQVmzAffa OU7j9xkMJJpQ5dniSeXxP G0cSKpVHLaE1RflKw2PKI mIVSffgMltO94PjlmoNMx T5roFUivYIUapuUtiL44I guqxUXyF1Taz47dWLWehS gcuX89Hwlvoi70SESbtvC ccWNccGFyXHFsIENvbWJp tfNwIEHseXFmMEXad2MtO upjILJcGJ9YCMvgA0EKJj KkKUFTXSC7OYBBCCdcHDZ fuVRzRVBxi7jsXYPeyOCo IAB6W7z0rwXnDRXdpZHpt SFbWCIueQGtFZl6iqPrRJ RmcjNcdHJwYWRkcjEwNVx 3vxWxNYKjSqYkZ4hgexRw bUjwyhBmgp6hEAghkXNoL QTgPPZgWGGai30rIBQlKo EyepMhOhBivx0pxcXbE9m dlzPtLudmecTwhc3uUTcv aYYpxdJqbNBuZ7ajhBENp PM0qAEqQ7m8Q6mdwYj8Rl ZpZIJzjGd5ECW0QLmpxWK lDFD0WHIhSXPfp88pAHGj AdBpehciVlXsco3vbxVkA 7saejMajjsssdZkkw5yBF hdpMAwNZVwQDPqPSMxl96 lXGNsdmVydGFsdFxjbGZ0 e3maBLLuX2orjRfBaEK5d BDfGFAmE7JitOy8CPIjMP SoydFgkP58HkdczFGxJM6 0FUnaH7BfyuSqU3KghCqa YXJkXGludGJsXHFjIElud NWoaJHfgBD8zE6jBPAfpN ketS65Uipsjj23RDSyz6x xWAVhaZZrKHK2C2l0zzFp ZGRmbDNcdHJwYWRkbDEwN Ig5chXvGDQzyoKqfHSfIS QbvePgHVg0kuYcHJFrUkK qJ0xbehOroDixgiIwez3q ZVxjbGJyZHJsXGJyZHJub 25lXGNsYnJkcnJcYnJkcm 0tccIgX7hdviIePpmhjeU sac0fJCcsoFIbupBcwAMg R6aczMNIpFV9oRDiD8r6P 7golRz5OrWmYGOvqDc4MV P4PRlcnVIyFJW4NYFeKAP zg11bCGNjHlEabnhaXsSx be3ohsLwM6kbmgCvlozwc yTvaj7iZJqouEEoZXPeJD GoPCOjc10aPCVnlxBdxFJ pcKokhTK1r4nqIGGsM0ga cLhCuDG4oNYyIEAtB4Djq Xk0TUNvCRApnsPqoO38Rz xccWMgMCwyXGNlbGxccGF yZFxpbnRibFxxYyBOZWdh kYu2VPzzLKytCUogtMNgP MMmj3v2zm37TIfvQNY5wt 25MHQzrHKsFKQ0D0g3oaZ hZGRmbDNcdHJwYWRkbDEw EBr3npLyBEBgcmIpxTPiV NWtzyIwJJi4skSjYMTuUt OyC0fkwxRazMvsqnGloh8 uZVxjbGJyZHJsXGJyZHJu n32wMJObYvIczqSiWvMwd r9hmlIrE1rbtcJeIqsgrq Drbq9yAUfnrANnwuUbwEQ tX3hxsDGEsWF9hIIrF2h6 U6cxyJp9DjPdDMDilFd7K QN6LDogbDTgVNU6RSGcUM Lmd98jPIFpLkPufyajToP mrt1bcpJwI0scvpGrpzar snRitr7vXNpceHEdOYGiY AYqERTzn66pVYLuxtAcfR VwbJtqiMC3v6fcAEYoD4q svKiVkYF4eTCbDKLvO4Ih pLb4EGWkWTAcztEsbT34X ufyhTJuUrs2UBFnDki6IS rsT5DldPdzMEYvKHkglDH xCMMeJESqq4l0nXNcCBFq kWwsgO60Nevuax70AECuo mRccWNccGFyXHFsIEhFUi 0yIGlzIGRldGVybWluZWQ faKPxekbeDU6qWFhyh1Gb vDksSNFxb5PzxNMsux9pE XNzLiAgVGhlIGluaXRpYW wgZXZhbHVhdGlvbiBpcyB aHOPxh0PdWYUnqQRhkgqu RT8neF3geS6sUH11zS4sa UkrLHWpL8petGR6KRS2iB LhYKAtcbYlLfp5EZ6agy1 hfR7zDGhmXV85aA2OZRQd B49glYTjbbKeNt1beLTsD 3kwppAmDJM8NAKVCRGoCY Sfhy37RYXaENWuznNznqM pIHdpdGggdGhlIFVsdHJh SkglmzKOzlg7JXWzRHrkE EFCIERldGVjdGlvbiBLaX QgKFZlbnRhbmEpLiBUaGl iECycOGBagE2feGAsNLHm xGxzmECsjfUbvXB5xDCvh HezOXCbTJk7sMKlYC3hZ2 N9dNEsCUoeRN5cQTWeWOG 4UZjmfC5fOEAavsBzb4Pu mEg9RHFnBbvdh3CbzP2of xdcSuDxEFqxs0SqfaBtgN r3tnJyobAlX42ap1slRZE oZCKycQ5skU8uSYJbt0La EWUvDAVwGWQpHRVtdR8hi CSpHEYduAk8z3HdlMMrMj vgr4QwwG9ygezeKVWvAEO yZWZsZXhpdmVseSBzdHVk mDUbVOyefIxoGzf6r7Tqy 2NlbmNlIGluLXNpdHUgaH licmlkaXphdGlvbiAoRkl TSCkgYXNzYXkuXHBhclxw YSHbXPrlfmEtv4RafNWjX D5iKpYzxWVrHg1avOQaZK 9rXGIccWLhndNbuHRcto8 mUCAhBZLeMr3fxDNxkQ1r Odt5HLIrGHQpdiClVrdoV TWiMjRaUQPcCZHgd2B8KX 4lJW5keMEpqzHsY60qwTP buCBwAEssF4cxuQN4EHbc cHJvdGVpbiBleHByZXNza X7fQEFoe9aohBX3VRaswD JvdGVpbiBleHByZXNzaW9 sNVNtNXKuipPkjg2jqHDw r298up5nSFPqzqShsiXxB FUbhaLoM93vkWKjdZJlbz Kbpt54fZctRZx1FOKyYRH wqR1ydYjqZIM4UIl7POLy j01cu4QsqEsxOIDbf2V3U rPhXQyjVAWwk4FkkslozF UdmN9nrOBcOHRnHGCuaWP kFFWgGw6csX81jaZdBWGp j1CzsY6gANVpFOJhKEUOb 1zfVKlhXV9oRPKaVUAkI1 GsZALqvLzajP6nlYI9tpD rpzBlnMyiQZSjOWNuL4Vn KZRjT9xarTzug6RzD2smd kqyMNawJ88vo6cqP4csij 8bdyGxC1JkQMWbmO1hGO6 xNHRev9SeuencCk5cTGvN GfImj2KtwYWpIJeoIOvfg mFzaXZlIGJyZWFzdCBjYW 5jZXIpOlxwYXJccGFyIEh BUc3oT24irPvsoPZfCV3F M1LSIZWKTCgPTlWhOOMBV WSbYPb7OYFsehWRxnJpgR FpbmluZyBpcyBvYnNlcnZ zTRMecfMyHG2hhlQnHGQm oIFuzcycWfZ7nVN9FNvoT YohQ51pgNjieLCmMI6oBA lkFVLyrE45CGItvkOikES bTluvJNErSJI4zDXsyB4s YJQaIY2bXTkdi6Lyf2Qve OFbh4NvP1KzxQPqSYYvcu xwYXIgTkVHQVRJVkUgSEV ANfPZBJOLVZgeEyc5YVHe gwWUahMguTUzIZGhCU6wg NGbAR2oVZZ0UCnmfS1xNE RoYXQgaXMgZmFpbnQgcGV dN5GrmTubvWJfTZ5jFHiu dGhpbiBncmVhdGVyIHRoY W0eSRRiAT6kTSQ4dW8lBR NlbGxzLlxwYXJccGFyIEV ZYFaAM7LONYEUXRMwRHXO D6VwJCNcVFxrwSGlZKEtt mO3fGTlodLkvRidiDAmPH 1icmFuZSBzdGFpbmluZyB 5qKP6CNebSVAbhFRoSRMn AMOaGWG2VRPzHJHoTN3wQ LDeBFIqHCLoLIM5dAXzvR 9qM7KqVMMstrT1mAGmXYA nOJIkLpU0hI2qpfOoJLgh elLyekCxpWAljH2kJTAhb nRpYWwgbWVtYnJhbmUgc3 ViyS6zectvnGsdhJWrmjV iqyAblaCbZSYxZUW6bJOh cI2xuOSmttV2rPWgYM4kO GVxdWFsIHRvIDEwJSBvZi B3kY1evcRuHWkzhf4iwQM sMKZsvlFWR0YFUGlFDCZB KZXoIOJVL8AiNCWkVEqpl HNoPEDyotB2zJAyblPlqK nxsDNdAG3iuoIaXCTfxHO mrjquVpT7aUT7TOmxPHEa bXBsZXRlLCBpbnRlbnNlL MYxjqMav6q7nAwzXTryPK X7VXGqwEveawMaVNFwe6Q wwFGnj1DjE3HcqAKvIZFz ydctQTQgv3TgWMWzm5NjG WDkT0YdY9llMM7wdNPiuL HdaAofSKRAI29mT9NYTIf 6tPSncSuaOJPql0QqCLCm UFIvSGVyMiBvZiBmaXhhd LskszAloxDpPRDljeZ7eQ VvqQImtFNbVBGhNCYsh5U uIBvpfgPjc7PiGJYyuNHo x2ToBjRhh6IzztSbmfEfr UYwoV8yImRvcM39wcTlc5 EcNt2noPBbeW0pNDGqxch hKeLbg9LsWYUdYzKiNP3f BXQ9UGXUIWWZzHPbo8ckc 3QsIEFuYXRvbWljIFBhdG oyiL1adC1lrADjKLPuBYp wYXJ9 Clinical Information (test code = 3271809237) 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] Gross Description (test code = 0506626268) k9aahEHoZXEbsYUCDTD0E SYhKQ3wjQdfgOd8yZktVQ OjqfI0bJNjWGoks5vtURY 8r2pcizJGFcxiRMCrYI6t KEgbXMPuWG3vXqZsFIAiJ mYxXHBhcGVydzEyMjQwXH EbsVLjcZT2DGLsHF5inkd sQTvoPLgiWTEjyzV9ORIw cOYtY4SaSCBqQN8ehmtgJ FG1GJJZMovpBt7sxAPlyR tcZjFcZmNoYXJzZXQwXGZ ucJcuGTSsGVo0pQ6XHsxc D58pd5O9Gne4JQWgFSHjU 3BtAN9aCDOnaRYxI59VYi siQOA2EMJVRhgvUsgzjLy dr6LowJGzMBWgGTohoVXk NTEwMDAgXFxkYiBPVlIgI oV6VzF1QxfxWjH8BJn8RK MTHCRwRhh8AZW6FSS2UFf 2TVMqAD5gUHfjzXJsKCxb UoxkTVgvX213VLeoJGHjC 0FgG7NmPOafIuQmAJxtMI GcAAYtMJlrQUXmT9KAPOG qSVC0NrT0VHZnRIc9LSxf C4ULPGFlDBPeWcZnRTUuA xU8EHd7XHBVRt9hTCb0TJ X4LSEkMWR3OGchHATkHLX gMiBcXHNzIDMgXFxmbCBc CV2kwTdoWMRxVI2RCOYoD KaqQWLdEcKmB8DJY1aYJJ 4gQVxsdHJjaFxmczIyXHB mpzCDApxhUJPlBN5QYAIk KGjjJMc5sjFhWNNxAiUmQ LMiJ80wf7SWc1SvMP6HBE l0xwNojcpbvZ4hZTPxabB gDQpcZnMyMFxwYXIgDQpc G6RqQJPtUKHzkPXvPUYef DDggxZgHQo8LAOpTxScl7 ycFv0uTSckoYSib1UzmhF 3oIQhKNTqalB0iEKbuLyu biBsYWJlbGVkIHdpdGggd GhlIHBhdGllbnQncyBuYW 6nRNGCYICmxN2wOXCuTVC OGjDrbdZpOhWnVl1yfVIF dL1ewvLeZG7pPRXgnxSby 0UcTH9xYHLek6ilX4ktIA EvJBuoAN20AQ8bIEqbodG lhoNlRGIex3hmNHRey2O6 AXPaFC2dGEmdWL2dQCuwD O05WCBdKX8fY47vWCFhAR WfPMPhOFPdKOWxb71ihNu fHWVmTU59SJQ3qYTtfQHp HZHlMdAlbQpyr6NtXtZKi ERqy6VsZ4xvVR2niSHgy8 VppLw5mAQaBBOskTnmSKe 0EXQgcfKjGFVpZH5plhYc h4RgeZfexyLsoqJHKWhhT m6wvQ30hV7rRWNgU9IkR0 hlaGNzjNtryd4uiIEsMQ9 KXHBhciANClxjZjAgSmFt iMKkK2ScHFQbU9wbZI2IF MA0WxN6IzSgZzVbUFl3Hz YnQC3hhWHtEI3DRFYjZeT bSTIyR3jiQVVeRE7QUXDk MSANClxlcGljTmVzdERvY kL3QTZlkXYbTHA0LW7lwX peRLZeUBa0UVdcXDKvJ2Y jJ4ShKUzqNzRhOVjhBNJa FCFgFVtkKCJsU7XEGQIbW PM4LsH7CHYfXNx6NHoyD3 BLCZEzVZEnZpPkAEW8NpY 3ZXt7MWBBNo2bYAj6PTsr TAw6VSE5WSzxZTNqPFWbZ iBcXHNzIDMgXFxmbCBcXG 9apUrqAJGiCXYpDNL8GLQ bvZVBa4AfFGPtSVfoA5Zd XGZzMjJcZnMyMCBTUEVDS R9XSgWTEMTjTbDzyZJfPO 3EOKBsrcCqCLuogZppjW1 ppIGtN7dkQyHzWdaaaRdz TmVzdERvYzEgDQpcbHRyc GFyXGxpbjBccmluMFxzYj OfCDJsgCIMq9UwPBABOet mczIwIFNwZWNpbWVuIEIg zDBatpSqSEy3QKFnXdMgf 3dnfNFjYRsjWNA7oOOaCG QkZEOfIKQaUH92V0AobbF tZSwgVUggbnVtYmVyLCAi Qy0vZYsvKtCfSR4pNTL5V OEyIAsxyUGms1EhFPYnMF Gpb67gaYP0nmGuIoNcyrH bX5naTXsivKPmu1LwdAOe JKDczjnacH8zHpMru50xo SPsZZu4rJNaUTVgkyBpVg AtC00rwdGeUJp0PvVakPI uLxQtdAWkTlegP29yxJ1z TYujlyMnPQToDY9sQWWcP EQgONWcIMY0ZBRbXQwhTB 05ugQyouMdZggbBCF6HHP sLL9zBHPvOHRujYOraX2w biBpcyBlbnRpcmVseSBzd WVmtYP5NTKlsK3kOmYoJx GyEOCzbUhzt4tsVxFXcX4 5ae1fOLfvCGPpWDagtPKd U3F8gU9hImgoIABrNPxzb 0XeORZrxKKPf4XsKH4EXX BhciANClxzYTMwXGVwaWN Jw3DzKTTJRsniOYFiEWBP NMCpxhfpZRHzGHTZE8EeH 20NClxlcGljTmVzdERvYz Q1XEYleDIzIER7OP6jjSt pZTPqP4NtT2EefiF6TEIr ghIGQejqCJDmDI7TQAOoM jIgDQp9 Intraoperative Consultation (test code = [id number]) f0xcqGVySBTeiKCDETW5B KXjSJ7uxBkayXy3nAaqHF PvebF9zHYvLTuzv6axVSJ 0z1bwavIDIkqmCKHpJQ7e QOgbXLFlKI4dCpPgRZZsI mYxXHBhcGVydzEyMjQwXH GrtXGdqSW0VNIqWE6pjye mWWfxVLjdNBOxygL1QEXo zLPyD7YtONKeSY8bicxhF XK5FKLNNpbfNh9soQPflZ tcZjFcZmNoYXJzZXQwXGZ hgJcxXWQiDQw1jE1NPzmh NQE4TAGKBizdMroopOoen 2VjdCBcXHNnIFxcaWQgNT EwMDEgXFxkYiBPVlIgIiA 8HcM8PxdaKhJ6LPd5ZYLE EPNfJsp2LQF4SQL9YVf6Q AZjCY4pZWzleVFtZOzzUr lyKUkdX213GNbdQZHfK8E rT9ReQQxaHqVwGJkxSAZz BYTxGVblPPYhO2VSLNDhT KJ8EpK7JVHtJDi4AQzeF4 ZTICIgIDIzMzEwNTQxIiA 5ZLr2PYCTZm1rZXy7TVPg JXAbKsV0KLteYOYwBODhD iBcXHNzIDMgXFxmbCBcXG 7kvSdiJQCvGD2SFPZxZMr wIVOjXqLvM1BWA0kWWM0s QVxsdHJjaFxmczIyXHBhc qQYJrjjREJzCA9TJIMbWC caAJk5maUlFYLfKzYdNRY qW80zk8MJo3WhDK7CERk4 wuImmtkcxA8jIWIyklXiH OheApVdJYMQPKmuYb8GPD UzS8DWOdGjXAZVCfDVWoF qOqNpSf9UGALRBO5KQwuf QklPUFNZOlxwYXIgDQogI PZiAG0iHGMFBGqWKIaCCB VUPQmXZiWQEyAEUA6HHH0 OIFRPVUNIIFBSRVBBUkFU JT9YZxgxQxQOQ4ZnDCOLD OHABJCVR8frBVBmNBjrCF DmPY3bXy2jGeZICxBWZBV UP3VMK25jVWTJIc4WQUVE EXfUT98ZSNPFD4MNIXora FNnWJ3ITMJbzpYQPkHyy6 UsfOKiqwYle1L6RKXbbT1 lBBTzKHtmxTdzg07jIB2v QP2mTAEjGMS7QZC6OixpD D8ySVUyokLmat7inHsxda PzNxCaZLZrOYPvY6xbj8A mmrZtvNn2clTarzDpiHU1 aWVudCBpZGVudGlmaWNhd ZdheaO3AYBqbRGbYl0cjH VkLlxwYXIgDQpccGFyIA0 XAGCrJSikTAYusSGUm3Qu CTzhtUG9QFspiF91rZLkM C9GEAnebJQrwEZiXQKbFN VuIEZlbGljZWxsYSwgTUQ pIE8xKP7fPPIuNl1WWNIw fQLZOJC4AA6vLKmpMIViP 0AiF1QvunW3t9zqcYgqp0 TchHTfMQ0ibQZqPF9NRLY hcmQgDQpcZnMyMiANCn0= Disclaimer (test code = [id number]) a5lnuXFbOKSsn9raAJLom GFuZzEwMzNcZnRuYmpcdW LnSSslkmYiBVxtr5JeJ6U yMjAwMFxhbnNpXGRlZmxh grdcNEAxVIU9fhHiYDMoB LxbTWUuRLviNl6yrBAmeU zeVeKxPGFga8gskvMCQZx fByNuC473YJQpGJqpq1wc t0EuCAWozGIjt8X3XJVGz vsuyOq8mClfR34yl7E8Ga pwS0jrPTHqFFIpL1TgOY7 tLKRrDus5QTW1XZP1QGKa WXLkJ3DwGZ7bFGRldIPfT Pb0y6uxcYcxUFGpZEN0i2 keOHyydnHcTA7zab2hsBr 9c6udguGxXHMdLOGrjFEB TICiW6YcqPrhMv9okWk7l KswBqaeAOM6Jtp5EZ2voo 69dbr5aWqpOPMylnopMgU 5IYlzFUJafftaXNy0OPkc UUBwaBN8MZWyhCAcR1UdU TGzHX9ozhk0QIU5HDfaHP KgKcJ0JQJgbGFfNWNcxYb vYIfyo896OTJ2CvUpZC0s N4Zqo4U4lH9fxSXuJDLlw RDuOsZqSJQjic2ulISiES byo1TcTCO9rrN3iBRcqBM vFQFuQF43Mkqkw6UsFfut u4WoE52dbVY6LXqda4ewS U1lNmO7kjWzXUtms9vlqQ 3hJnG9YKpiEJ0gON0gPNK lcC6vinpgFRLkDgKdekzd IJAulErtrlYfHb9dfLkuQ RX8ECxeI8kcjS1iTwL7IO vsR4gamF2aZWs1XYuurCU 9GDNkfW3jPB9dysvet1kz PSjhJAbtKFZyvfM5zvL6T DMtzUTfN6WxgZ0mRZPqXB 1aujmms1ddIRX3LAzhRRA qPIX3VaPjCRAyi7Aduww9 BpPui9FmcLTpCOavK53ko 153QWLklaRyK2emvTFvcn kwiYRvftpoBVrphkV7ABQ gntUjs4NuNUUwNEE3HQla BSvycVDuCIAojMxlo8fhA 3RscGFyXHBsYWluXGYxXG ZzMjBcbGFuZzEwMzNcaGl jaFxmMVxkYmNoXGYxXGxv I6gbWtCeE2NzORPiOzEwx NOtV0kfOZfgobQaQXOgdg GcoDY3NMfjU3j0UYIqlhD csKp4wwOmVdXlRWLwPSN6 CAybxZKhYUGyc2Mbevpjl LMjPi8cqVRbTJZflD8zGA JwMGGlVThtBH5ysFa3RHL HzTSrjVWgNnJTMKHfKA41 acFuOUFTvppsg1V0URzzW XRhg4HrhOIsA4bzz1CyFI Wso82eNU2bx0Q1j0lrSCZ 3JX8iu7HmTQKvePUlpBLr WDLdu2Uejdxuh6AqCXFzm hBxn6RqTNZauzQeiXFdQG SzqwSekb4cqtThTDGySJS fV2SoaotlzLtcjoHqOPHn uf2nhkTmXZZ4ALJJQOUvL ENmb3InwJ6vbRJKYBQ4sR Mtbc8biwGBqRQzMNKlmp0 2TJJgOU1hM3erBDUmTIPb gtMljLUbl2TjBOIcyCR0t CElYE7NZtJWq81hAMRvBW RUucHyLRAamCvqxLS4nxM 2lM5jHZxCLNBsEcr+IFRo DWZPLOBiJW1ewqCvq2Gcx qAuiKprONKcoXYbi0AenT Xfr4PpxEnep5CsnNSoqYV vUY9hDRNeqejvCQTgDJTH BwSNFKIiuqK6q3UlEKHuZ GQoJSY5kUxpihp7RXNrjL 9xEIKhG1lavujyQSrqHMB ce2ErvI3mqEQTjDOri1Wn oQJpaKGOgNNvVR6budSbR LqGKYaPZKP3cbAgNFWnq2 BjXQsiQ1dnO14ncXehbPw 4sLW8WVJ5wM4qUaq+IFxw YXJccGFyIEFwcHJvcHJpY ITayPvujoTlP1GrgbRspM 2oqZGoirIwHH1iGL0aH7F 6pLMjGKMrzhRtu8yvJXib dmUgYmVlbiByZXZpZXdlZ SGka5UrRPmuCSG2SDrrix BpbmNsdWRpbmcgSCZFLCB GeKPccRGaAFQ4MDwcqrEp mtPxOC9lkU4sjDwcnQ6si JYgyUH8rfzaIQVoPQQbrT ryANSbQL9axNmluP6fFdV oQxFhZCirOF7pVLWjG9xh yTNtWKIuNMFoC3ydRpUcm E6nwMyeUJkdKeAbVaUkGV xwYXJccGFyXHBsYWluXGY xXGZzMjBcbGFuZzEwMzNc aGljaFxmMVxkYmNoXGYxX TmyI2pfVxGpA1UjPTLzSt AmkOTtV1eiKHtoCFK4BLA vYS3ssOCdAH07zSRqt6gt LWnjaUtyhf5kN89meDUbU FutvWaoHSIhp70qo5SgBS YrhcXmhh7pLNOjtqO0bB4 sZSBzbGlkZSBpbWFnZXMg x5LgCEcraNGayyYySKruN ORaPHTloSPhozF3wgRrky ZyqqQfSCAfuWgcMYCxz0A nXIXnARajs3Mpgr2luWVi EJSjlnJBhCavdBCgcS4mX 9MyLPZyBQObbo9fSXZzrH 9vBNsmv1HbxcyrYHIxUMK fLTNgvfWqgz5wIHMthUVZ SN5ADAhnyTOeo9UtixWkR 6sZAZU6BPYoMyTwGfizYQ SdyLOcuZSzWLTwyg69MJC hrE3dpCbjXKZeyC5odG1t hMwzxY5jEtBhKhGbVDpnG U5wIBBgC0xteVDqMYAqPI XqD7irJgZguM8urKpdMRy lFvPxIkEwULcdWAF0iR== Embedded Images (test code = [id number]) [facility] GLUCOSE (AUTOMATED)2023-04-03 20:21:51* Test Item Value Reference Range Interpretation Comme nts POCT GLU (test code = [id number]) 92 mg/dL 70-110 Lab Interpretation (test cod e = 67340-6) Normal [facility] GLUCOSE (AUTOMATED)2023-04-03 20:21:51* Test Item Value Reference Range Interpretation Comme nts POCT GLU (test code = [id number]) 92 mg/dL 70-110 Lab Interpretation (test cod e = 14116-6) Normal [facility] GLUCOSE (AUTOMATED)2023-04-03 20:21:51* Test Item Value Reference Range Interpretation Comme nts POCT GLU (test code = 7679428234) 92 mg/dL 70-110 Lab Interpretation (test cod e = 88964-4) Normal [facility] GLUCOSE (AUTOMATED)2023-04-03 17:40:28* Test Item Value Reference Range Interpretation Comme nts POCT GLU (test code = [id number]) 81 mg/dL 70-110 Lab Interpretation (test cod e = 95210-4) Normal [facility] GLUCOSE (AUTOMATED)2023-04-03 17:40:28* Test Item Value Reference Range Interpretation Comme nts POCT GLU (test code = 0921560103) 81 mg/dL 70-110 Lab Interpretation (test cod e = 95445-3) Normal [facility] GLUCOSE (AUTOMATED)2023-04-03 17:40:28* Test Item Value Reference Range Interpretation Comme nts POCT GLU (test code = 2568424462) 81 mg/dL 70-110 Lab Interpretation (test cod e = 00937-3) Normal [facility] GLUCOSE (AUTOMATED)2023-04-03 13:06:17* Test Item Value Reference Range Interpretation Comme nts POCT GLU (test code = 1324885742) 81 mg/dL 70-110 Lab Interpretation (test cod e = 12775-8) Normal [facility] GLUCOSE (AUTOMATED)2023-04-03 13:06:17* Test Item Value Reference Range Interpretation Comme nts POCT GLU (test code = 6528187148) 81 mg/dL 70-110 Lab Interpretation (test cod e = 62901-6) Normal [facility] GLUCOSE (AUTOMATED)2023-04-03 13:06:17* Test Item Value Reference Range Interpretation Comme nts POCT GLU (test code = 1915761198) 81 mg/dL 70-110 Lab Interpretation (test cod e = 80307-9) Normal [facility] GLUCOSE (AUTOMATED)2023-04-03 02:58:53* Test Item Value Reference Range Interpretation Comme nts POCT GLU (test code = 5773530901) 196 mg/dL 70-110 H Lab Interpretation (test cod e = 99797-3) Abnormal [facility] GLUCOSE (AUTOMATED)2023-04-03 02:58:53* Test Item Value Reference Range Interpretation Comme nts POCT GLU (test code = 8801801144) 196 mg/dL 70-110 H Lab Interpretation (test cod e = 53335-4) [facility] 02:58:53* Test Item Value Reference Range Interpretation Comme nts POCT GLU (test code = 9882110886) 196 mg/dL 70-110 H Lab Interpretation (test cod e = 34158-3) [facility] 21:56:33* Test Item Value Reference Range Interpretation Comme nts POCT GLU (test code = 6961427770) 185 mg/dL 70-110 H Lab Interpretation (test cod e = 17413-0) Abnormal [facility] GLUCOSE (AUTOMATED)2023-04-02 21:56:33* Test Item Value Reference Range Interpretation Comme nts POCT GLU (test code = 9574364892) 185 mg/dL 70-110 H Lab Interpretation (test cod e = 45183-2) Abnormal [facility] GLUCOSE (AUTOMATED)2023-04-02 21:56:33* Test Item Value Reference Range Interpretation Comme nts POCT GLU (test code = 9393580075) 185 mg/dL 70-110 H Lab Interpretation (test cod e = 77688-3) Abnormal [facility] GLUCOSE (AUTOMATED)2023-04-02 17:04:54* Test Item Value Reference Range Interpretation Comme nts POCT GLU (test code = 0537652935) 264 mg/dL 70-110 H Lab Interpretation (test cod e = 94835-8) [facility] 17:04:54* Test Item Value Reference Range Interpretation Comme nts POCT GLU (test code = 8712188248) 264 mg/dL 70-110 H Lab Interpretation (test cod e = 78649-9) [facility] 17:04:54* Test Item Value Reference Range Interpretation Comme nts POCT GLU (test code = 5370362649) 264 mg/dL 70-110 H Lab Interpretation (test cod e = 63297-3) [facility] 12:46:52* Test Item Value Reference Range Interpretation Comme nts POCT GLU (test code = 4845532821) 139 mg/dL 70-110 H Lab Interpretation (test cod e = 00453-9) [facility] 12:46:52* Test Item Value Reference Range Interpretation Comme nts POCT GLU (test code = 8227025483) 139 mg/dL 70-110 H Lab Interpretation (test cod e = 20628-4) [facility] 12:46:52* Test Item Value Reference Range Interpretation Comme nts POCT GLU (test code = 6276340063) 139 mg/dL 70-110 H Lab Interpretation (test cod e = 89956-4) Abnormal [facility] GLUCOSE (AUTOMATED)2023-04-02 02:52:15* Test Item Value Reference Range Interpretation Comme nts POCT GLU (test code = 3628310448) 247 mg/dL 70-110 H Lab Interpretation (test cod e = 86515-9) [facility] 02:52:15* Test Item Value Reference Range Interpretation Comme nts POCT GLU (test code = 8178902352) 247 mg/dL 70-110 H Lab Interpretation (test cod e = 10761-2) [facility] 02:52:15* Test Item Value Reference Range Interpretation Comme nts POCT GLU (test code = 3315262074) 247 mg/dL 70-110 H Lab Interpretation (test cod e = 04464-2) [facility] 21:00:56* Test Item Value Reference Range Interpretation Comme nts POCT GLU (test code = 8669832543) 231 mg/dL 70-110 H Lab Interpretation (test cod e = 66044-5) Abnormal [facility] GLUCOSE (AUTOMATED)2023-04-01 21:00:56* Test Item Value Reference Range Interpretation Comme nts POCT GLU (test code = 7919201297) 231 mg/dL 70-110 H Lab Interpretation (test cod e = 02100-6) Abnormal [facility] GLUCOSE (AUTOMATED)2023-04-01 21:00:56* Test Item Value Reference Range Interpretation Comme nts POCT GLU (test code = 0688863288) 231 mg/dL 70-110 H Lab Interpretation (test cod e = 64366-3) Abnormal [facility] GLUCOSE (AUTOMATED)2023-04-01 17:19:17* Test Item Value Reference Range Interpretation Comme nts POCT GLU (test code = 9739514700) 291 mg/dL 70-110 H Lab Interpretation (test cod e = 47727-3) Abnormal [facility] GLUCOSE (AUTOMATED)2023-04-01 17:19:17* Test Item Value Reference Range Interpretation Comme nts POCT GLU (test code = 8646658181) 291 mg/dL 70-110 H Lab Interpretation (test cod e = 06996-7) Abnormal [facility] GLUCOSE (AUTOMATED)2023-04-01 17:19:17* Test Item Value Reference Range Interpretation Comme nts POCT GLU (test code = 6664286845) 291 mg/dL 70-110 H Lab Interpretation (test cod e = 55084-5) [facility]normal [facility] [facility] 17:19:17* Test Item Value Reference Range Interpretation Comme nts POCT GLU (test code = 6287161335) 291 mg/dL 70-110 H Lab Interpretation (test cod e = 22467-4) Abnormal [facility] GLUCOSE (AUTOMATED)2023-04-01 13:53:20* Test Item Value Reference Range Interpretation Comme nts POCT GLU (test code = 3135682868) 250 mg/dL 70-110 H Lab Interpretation (test cod e = 60066-0) Abnormal [facility] GLUCOSE (AUTOMATED)2023-04-01 13:53:20* Test Item Value Reference Range Interpretation Comme nts POCT GLU (test code = 5293685264) 250 mg/dL 70-110 H Lab Interpretation (test cod e = 81675-5) Abnormal [facility] GLUCOSE (AUTOMATED)2023-04-01 13:53:20* Test Item Value Reference Range Interpretation Comme nts POCT GLU (test code = 2992035980) 250 mg/dL 70-110 H Lab Interpretation (test cod e = 86328-1) Abnormal [facility] GLUCOSE (AUTOMATED)2023-04-01 13:53:20* Test Item Value Reference Range Interpretation Comme nts POCT GLU (test code = 8118618877) 250 mg/dL 70-110 H Lab Interpretation (test cod e = 58538-9) Abnormal [facility] GLUCOSE (AUTOMATED)2023-04-01 01:26:46* Test Item Value Reference Range Interpretation Comme nts POCT GLU (test code = 6330896215) 220 mg/dL 70-110 H Lab Interpretation (test cod e = 67937-4) Abnormal [facility] GLUCOSE (AUTOMATED)2023-04-01 01:26:46* Test Item Value Reference Range Interpretation Comme nts POCT GLU (test code = 6273374848) 220 mg/dL 70-110 H Lab Interpretation (test cod e = 75049-8) Abnormal [facility] GLUCOSE (AUTOMATED)2023-04-01 01:26:46* Test Item Value Reference Range Interpretation Comme nts POCT GLU (test code = 3555367844) 220 mg/dL 70-110 H Lab Interpretation (test cod e = 71816-9) Abnormal [facility] GLUCOSE (AUTOMATED)2023-04-01 01:26:46* Test Item Value Reference Range Interpretation Comme nts POCT GLU (test code = 2629188188) 220 mg/dL 70-110 H Lab Interpretation (test cod e = 89230-0) [facility] 00:48:16* Test Item Value Reference Range Interpretation Comme nts PH (test code = 2) 7.36 7.35-7.45 PCO2 (test code = 7975665337) 37 See_Comment [Automated messa ge] The system which generated this result transmitted reference range: 35 - 45 mmHg. The reference range was not used to interpret this result as normal/abnormal. PO2 (test code = 9088506541) 134 See_Comment H [Automated messa ge] The system which generated this result transmitted reference range: 80 - 100 mmHg. The reference range was not used to interpret this result as normal/abnormal. HCO3 (test code = 5796376611) 20 See_Comment L [Automated messa ge] The system which generated this result transmitted reference range: 22 - 26 mEq/L. The reference range was not used to interpret this result as normal/abnormal. BE (test code = 6176648000) -4.5 See_Comment L [Automated messa ge] The system which generated this result transmitted reference range: -3.0 - 3.0 mEq/L. The reference range was not used to interpret this result as normal/abnormal. THB (test code = 9653118795) 13.5 g/dL 12.0-16.0 %O2HB (test code = 3735025292) 97.6 % 94.0-99.0 %COHB ART (test code = 8142100327) 0.5 % 0.0-1.5 %METHB ART (test code = 2477802443) 0.4 % 0.4-1.5 VOL%O2 ART (test code = 5676555475) 18.7 % 15.0-23.0 QUES NA (test code = 7743598076) 136 mmol/L 135-145 K+ (test code = 3206103579) 4.0 mmol/L 3.5-5.0 AC CA IONZ (test code = 5689811458) 4.80 mg/dL 4.50-5.30 GLUCOSE (test code = 5526555378) 115 mg/dL 70-110 H Lab Interpretation (test code = 03954-7) [facility] 00:48:16* Test Item Value Reference Range Interpretation Comme nts PH (test code = 2) 7.36 7.35-7.45 PCO2 (test code = 5076151008) 37 See_Comment [Automated messa ge] The system which generated this result transmitted reference range: 35 - 45 mmHg. The reference range was not used to interpret this result as normal/abnormal. PO2 (test code = 1242212774) 134 See_Comment H [Automated messa ge] The system which generated this result transmitted reference range: 80 - 100 mmHg. The reference range was not used to interpret this result as normal/abnormal. HCO3 (test code = 4747834893) 20 See_Comment L [Automated messa ge] The system which generated this result transmitted reference range: 22 - 26 mEq/L. The reference range was not used to interpret this result as normal/abnormal. BE (test code = 4851649627) -4.5 See_Comment L [Automated messa ge] The system which generated this result transmitted reference range: -3.0 - 3.0 mEq/L. The reference range was not used to interpret this result as normal/abnormal. THB (test code = 2769103155) 13.5 g/dL 12.0-16.0 %O2HB (test code = 0503812870) 97.6 % 94.0-99.0 %COHB ART (test code = 1459392434) 0.5 % 0.0-1.5 %METHB ART (test code = 9384979360) 0.4 % 0.4-1.5 VOL%O2 ART (test code = 7549571349) 18.7 % 15.0-23.0 QUES NA (test code = 4286831775) 136 mmol/L 135-145 K+ (test code = 3645854432) 4.0 mmol/L 3.5-5.0 AC CA IONZ (test code = 5672124680) 4.80 mg/dL 4.50-5.30 GLUCOSE (test code = 6113544788) 115 mg/dL 70-110 H Lab Interpretation (test code = 51100-1) [facility] 00:48:16* Test Item Value Reference Range Interpretation Comme nts PH (test code = 2) 7.36 7.35-7.45 PCO2 (test code = 8580268646) 37 See_Comment [Automated messa ge] The system which generated this result transmitted reference range: 35 - 45 mmHg. The reference range was not used to interpret this result as normal/abnormal. PO2 (test code = 9180234522) 134 See_Comment H [Automated messa ge] The system which generated this result transmitted reference range: 80 - 100 mmHg. The reference range was not used to interpret this result as normal/abnormal. HCO3 (test code = 1036506399) 20 See_Comment L [Automated messa ge] The system which generated this result transmitted reference range: 22 - 26 mEq/L. The reference range was not used to interpret this result as normal/abnormal. BE (test code = 3922591367) -4.5 See_Comment L [Automated messa ge] The system which generated this result transmitted reference range: -3.0 - 3.0 mEq/L. The reference range was not used to interpret this result as normal/abnormal. THB (test code = 9193161398) 13.5 g/dL 12.0-16.0 %O2HB (test code = 5361620841) 97.6 % 94.0-99.0 %COHB ART (test code = 9800524036) 0.5 % 0.0-1.5 %METHB ART (test code = 5119773072) 0.4 % 0.4-1.5 VOL%O2 ART (test code = 4908875082) 18.7 % 15.0-23.0 QUES NA (test code = 7442683504) 136 mmol/L 135-145 K+ (test code = 0599489417) 4.0 mmol/L 3.5-5.0 AC CA IONZ (test code = 9007513814) 4.80 mg/dL 4.50-5.30 GLUCOSE (test code = 8533182012) 115 mg/dL 70-110 H Lab Interpretation (test code = 76719-5) [facility] 00:48:16* Test Item Value Reference Range Interpretation Comme nts PH (test code = 2) 7.36 7.35-7.45 PCO2 (test code = 3712210420) 37 See_Comment [Automated messa ge] The system which generated this result transmitted reference range: 35 - 45 mmHg. The reference range was not used to interpret this result as normal/abnormal. PO2 (test code = 9151225594) 134 See_Comment H [Automated messa ge] The system which generated this result transmitted reference range: 80 - 100 mmHg. The reference range was not used to interpret this result as normal/abnormal. HCO3 (test code = 1914716322) 20 See_Comment L [Automated messa ge] The system which generated this result transmitted reference range: 22 - 26 mEq/L. The reference range was not used to interpret this result as normal/abnormal. BE (test code = 6643767151) -4.5 See_Comment L [Automated messa ge] The system which generated this result transmitted reference range: -3.0 - 3.0 mEq/L. The reference range was not used to interpret this result as normal/abnormal. THB (test code = 8904554397) 13.5 g/dL 12.0-16.0 %O2HB (test code = 3276817934) 97.6 % 94.0-99.0 %COHB ART (test code = 6492710229) 0.5 % 0.0-1.5 %METHB ART (test code = 0270682092) 0.4 % 0.4-1.5 VOL%O2 ART (test code = 7644986521) 18.7 % 15.0-23.0 QUES NA (test code = 3158113674) 136 mmol/L 135-145 K+ (test code = 6525652771) 4.0 mmol/L 3.5-5.0 AC CA IONZ (test code = 4541804096) 4.80 mg/dL 4.50-5.30 GLUCOSE (test code = 6656684257) 115 mg/dL 70-110 H Lab Interpretation (test code = 71473-4) Abnormal [facility] GLUCOSE (AUTOMATED)2023-03-31 22:33:04* Test Item Value Reference Range Interpretation Comme nts POCT GLU (test code = 3140253323) 159 mg/dL 70-110 H Lab Interpretation (test cod e = 06700-8) Abnormal [facility] GLUCOSE (AUTOMATED)2023-03-31 22:33:04* Test Item Value Reference Range Interpretation Comme nts POCT GLU (test code = 8698327731) 159 mg/dL 70-110 H Lab Interpretation (test cod e = 38372-4) Abnormal [facility] GLUCOSE (AUTOMATED)2023-03-31 22:33:04* Test Item Value Reference Range Interpretation Comme nts POCT GLU (test code = 8763013113) 159 mg/dL 70-110 H Lab Interpretation (test cod e = 29521-0) Abnormal [facility] GLUCOSE (AUTOMATED)2023-03-31 22:33:04* Test Item Value Reference Range Interpretation Comme nts POCT GLU (test code = 9704222923) 159 mg/dL 70-110 H Lab Interpretation (test cod e = 86171-1) [facility] 17:29:51* Test Item Value Reference Range Interpretation Comme nts POCT GLU (test code = 9545021667) 149 mg/dL 70-110 H Lab Interpretation (test cod e = 93650-7) [facility] 17:29:51* Test Item Value Reference Range Interpretation Comme nts POCT GLU (test code = 2398304077) 149 mg/dL 70-110 H Lab Interpretation (test cod e = 51541-6) Abnormal [facility] GLUCOSE (AUTOMATED)2023-03-31 17:29:51* Test Item Value Reference Range Interpretation Comme nts POCT GLU (test code = 8734282584) 149 mg/dL 70-110 H Lab Interpretation (test cod e = 73995-7) Abnormal [facility] GLUCOSE (AUTOMATED)2023-03-31 17:29:51* Test Item Value Reference Range Interpretation Comme nts POCT GLU (test code = 5043745441) 149 mg/dL 70-110 H Lab Interpretation (test cod e = 35314-2) Abnormal [facility] GLUCOSE (AUTOMATED)2023-03-31 13:24:15* Test Item Value Reference Range Interpretation Comme nts POCT GLU (test code = 9697776343) 145 mg/dL 70-110 H Lab Interpretation (test cod e = 22558-7) [facility] 13:24:15* Test Item Value Reference Range Interpretation Comme nts POCT GLU (test code = 0388514692) 145 mg/dL 70-110 H Lab Interpretation (test cod e = 56640-0) [facility] 13:24:15* Test Item Value Reference Range Interpretation Comme nts POCT GLU (test code = 4102326057) 145 mg/dL 70-110 H Lab Interpretation (test cod e = 82875-8) [facility] 13:24:15* Test Item Value Reference Range Interpretation Comme nts POCT GLU (test code = 4048189963) 145 mg/dL 70-110 H Lab Interpretation (test cod e = 07352-3) Abnormal [facility] METABOLIC PANEL (NA, K, CL, CO2, GLUCOSE, BUN, CREATININE, CA)2023-03-31 09:20:08* Test Item Value Reference Range Interpretation Comme [facility] NA (test code = 6082038700) 139 mmol/L 135-145 K (test code = 4419647001) 3.9 mmol/L 3.5-5.0 CL (test code = 4560991353) 105 mmol/L 98-108 CO2 TOTAL (test code = 2332852818) 25 mmol/L 23-31 AGAP (test code = 8328846636) 9 2-16 BUN (test code = 3416668122) 26 mg/dL 7-23 H GLUCOSE (test code = 3274052328) 156 mg/dL 70-110 H CREATININE (test code = 9214921509) 0.81 mg/dL 0.50-1.04 CALCIUM (test code = 4604515668) 8.9 mg/dL 8.6-10.6 eGFR (test code = 9400387161) 68.2 mL/min/1.73m2 GARRICK (test code = GARRICK) [...] imaging tests). Lab Interpretation (test code = 24364-2) Abnormal [facility] METABOLIC PANEL (NA, K, CL, CO2, GLUCOSE, BUN, CREATININE, CA)2023-03-31 09:20:08* Test Item Value Reference Range Interpretation Comme nts NA (test code = 6233798825) 139 mmol/L 135-145 K (test code = 4744714383) 3.9 mmol/L 3.5-5.0 CL (test code = 7177770063) 105 mmol/L 98-108 CO2 TOTAL (test code = 2715613408) 25 mmol/L 23-31 AGAP (test code = 1566205585) 9 2-16 BUN (test code = 1560660276) 26 mg/dL 7-23 H GLUCOSE (test code = 6339367940) 156 mg/dL 70-110 H CREATININE (test code = 6835633306) 0.81 mg/dL 0.50-1.04 CALCIUM (test code = 4993067836) 8.9 mg/dL 8.6-10.6 eGFR (test code = 2255842196) 68.2 mL/min/1.73m2 GARRICK (test code = GARRICK) [...] imaging tests). Lab Interpretation (test code = 38887-5) Abnormal [facility] METABOLIC PANEL (NA, K, CL, CO2, GLUCOSE, BUN, CREATININE, CA)2023-03-31 09:20:08* Test Item Value Reference Range Interpretation Comme nts NA (test code = 0130273845) 139 mmol/L 135-145 K (test code = 7027057556) 3.9 mmol/L 3.5-5.0 CL (test code = 1414157272) 105 mmol/L 98-108 CO2 TOTAL (test code = 4323228100) 25 mmol/L 23-31 AGAP (test code = 2720297905) 9 2-16 BUN (test code = 1943684040) 26 mg/dL 7-23 H GLUCOSE (test code = 5321245998) 156 mg/dL 70-110 H CREATININE (test code = 6254380545) 0.81 mg/dL 0.50-1.04 CALCIUM (test code = 6691080547) 8.9 mg/dL 8.6-10.6 eGFR (test code = 3477589896) 68.2 mL/min/1.73m2 GARRICK (test code = GARRICK) [...] imaging tests). Lab Interpretation (test code = 79472-7) Abnormal [facility] METABOLIC PANEL (NA, K, CL, CO2, GLUCOSE, BUN, CREATININE, CA)2023-03-31 09:20:08* Test Item Value Reference Range Interpretation Comme nts NA (test code = 4860969196) 139 mmol/L 135-145 K (test code = 6637555237) 3.9 mmol/L 3.5-5.0 CL (test code = 2202094492) 105 mmol/L 98-108 CO2 TOTAL (test code = 5216653932) 25 mmol/L 23-31 AGAP (test code = 3271498608) 9 2-16 BUN (test code = 7192666041) 26 mg/dL 7-23 H GLUCOSE (test code = 5116123589) 156 mg/dL 70-110 H CREATININE (test code = 4876776884) 0.81 mg/dL 0.50-1.04 CALCIUM (test code = 1916737776) 8.9 mg/dL 8.6-10.6 eGFR (test code = 6897960413) 68.2 mL/min/1.73m2 GARRICK (test code = GARRICK) [...] imaging tests). Lab Interpretation (test code = 79946-4) [facility] [id number] 09:02:26* Test Item Value Reference Range Interpretation [facility] APTT Patient (test code = 3173-2) 28 See_Comment [Automated [employer]] The system which generated this result transmitted reference range: 26 - 36 Seconds. The reference range was not used to interpret this result as normal/abnormal. Lab Interpretation (test code = 17375-7) [facility] / [id number] 09:02:26* Test Item Value Reference Range Interpretation [facility] PROTIME PATIENT (test code = 5964-2) 12.1 [...] the indications. Lab Interpretation (test code = 50388-9) [facility] [id number] 09:02:26* Test Item Value Reference Range Interpretation Comme nts APTT Patient (test code = 3173-2) 28 See_Comment [Automated messa ge] The system which generated this result transmitted reference range: 26 - 36 Seconds. The reference range was not used to interpret this result as normal/abnormal. Lab Interpretation (test code = 34249-2) [facility] / [id number] 09:02:26* Test Item Value Reference Range Interpretation [...] the indications. Lab Interpretation (test code = 34971-8) [facility] [id number] 09:02:26* Test Item Value Reference Range Interpretation Comme nts APTT Patient (test code = 3173-2) 28 See_Comment [Automated messa ge] The system which generated this result transmitted reference range: 26 - 36 Seconds. The reference range was not used to interpret this result as normal/abnormal. Lab Interpretation (test code = 23786-4) [facility] / [id number] 09:02:26* Test Item Value Reference Range Interpretation [...] the indications. Lab Interpretation (test code = 21405-1) [facility] [id number] 09:02:26* Test Item Value Reference Range Interpretation Comme [facility] APTT Patient (test code = 3173-2) 28 See_Comment [Automated messa ge] The system which generated this result transmitted reference range: 26 - 36 Seconds. The reference range was not used to interpret this result as normal/abnormal. Lab Interpretation (test code = 05451-4) [facility] / [id number] 09:02:26* Test Item Value Reference Range Interpretation Comme [facility] PROTIME PATIENT (test code = 5964-2) [...] the indications. Lab Interpretation (test code = 16851-5) [facility] [id number] 08:50:07* Test Item Value Reference Range Interpretation [facility] WBC (test code = 6690-2) 10.75 See_Comment [...] 33.7 g/dL 31.6-35.1 RDW-SD (test code = 50488-6) 41.9 fL 39.0-49.9 RDW-CV (test code = 788-0) 13.3 % 12.0-15.5 PLT (test code = 777-3) 212 See_Comment [Automated messa ge] The system which generated this result transmitted reference range: 166 - 358 10*3/?L. The reference range was not used to interpret this result as normal/abnormal. MPV (test code = 59987-8) 10.4 fL 9.5-12.9 NRBC/100 WBC (test code = 8606338793) 0.0 See_Comment [Automated [employer] ssage] The system which generated this result transmitted reference range: 0.0 - 10.0 /100 WBCs. The reference range was not used to interpret this result as normal/abnormal. NRBC x10^3 (test code = 5787631972) See_Comment [Automated [employer]] The system which generated this result transmitted reference range: 10*3/?L. The reference range was not used to interpret this result as normal/abnormal. GRAN MAT (NEUT) % (test code = 770-8) 54.8 % IMM GRAN % (test code = 2388927229) 0.30 % LYMPH % (test code = 736-9) 37.0 % MONO % (test code = 5905-5) 5.7 % EOS % (test code = 713-8) 1.5 % BASO % (test code = 706-2) 0.7 % GRAN MAT x10^3(ANC) (test code = 3510337896) 5.89 10*3/uL 1.88-7.09 IMM GRAN x10^3 (test code = 3713645210) 0.03 10*3/uL 0.00-0.06 LYMPH x10^3 (test code = 731-0) 3.98 10*3/uL 1.32-3.29 H MONO x10^3 (test code = 742-7) 0.61 10*3/uL 0.33-0.92 EOS x10^3 (test code = 711-2) 0.16 10*3/uL 0.03-0.39 BASO x10^3 (test code = 704-7) 0.08 10*3/uL 0.01-0.07 H Lab Interpretation (test code = 55035-4) Abnormal [facility] WITH [id number] 08:50:07* Test Item Value Reference Range Interpretation Comme nts WBC (test code = 6690-2) 10.75 See_Comment [Automated [employer]] The system which generated this result transmitted reference range: 4.30 - 11.10 10*3/?L. The reference range was not used to interpret this result as normal/abnormal. RBC (test code = 789-8) 4.72 See_Comment [Automated [employer]] The system which generated this result transmitted [...] 33.7 g/dL 31.6-35.1 RDW-SD (test code = 39453-4) 41.9 fL 39.0-49.9 RDW-CV (test code = 788-0) 13.3 % 12.0-15.5 PLT (test code = 777-3) 212 See_Comment [Automated [employer]] The system which generated this result transmitted reference range: 166 - 358 10*3/?L. The reference range was not used to interpret this result as normal/abnormal. MPV (test code = 08707-3) 10.4 fL 9.5-12.9 NRBC/100 WBC (test code = 3809995180) 0.0 See_Comment [Automated me ssage] The system which generated this result transmitted reference range: 0.0 - 10.0 /100 WBCs. The reference range was not used to interpret this result as normal/abnormal. NRBC x10^3 (test code = 9111737572) See_Comment [Automated messa ge] The system which generated this result transmitted reference range: 10*3/?L. The reference range was not used to interpret this result as normal/abnormal. GRAN MAT (NEUT) % (test code = 770-8) 54.8 % IMM GRAN % (test code = 7594822945) 0.30 % LYMPH % (test code = 736-9) 37.0 % MONO % (test code = 5905-5) 5.7 % EOS % (test code = 713-8) 1.5 % BASO % (test code = 706-2) 0.7 % GRAN MAT x10^3(ANC) (test code = 9506289016) 5.89 10*3/uL 1.88-7.09 IMM GRAN x10^3 (test code = 1737340059) 0.03 10*3/uL 0.00-0.06 LYMPH x10^3 (test code = 731-0) 3.98 10*3/uL 1.32-3.29 H MONO x10^3 (test code = 742-7) 0.61 10*3/uL 0.33-0.92 EOS x10^3 (test code = 711-2) 0.16 10*3/uL 0.03-0.39 BASO x10^3 (test code = 704-7) 0.08 10*3/uL 0.01-0.07 H Lab Interpretation (test code = 62983-5) Abnormal [facility] WITH [id number] 08:50:07* Test Item Value Reference Range Interpretation [...] 33.7 g/dL 31.6-35.1 RDW-SD (test code = 81994-2) 41.9 fL 39.0-49.9 RDW-CV (test code = 788-0) 13.3 % 12.0-15.5 PLT (test code = 777-3) 212 See_Comment [Automated messa ge] The system which generated this result transmitted reference range: 166 - 358 10*3/?L. The reference range was not used to interpret this result as normal/abnormal. MPV (test code = 65741-5) 10.4 fL 9.5-12.9 NRBC/100 WBC (test code = 0072657499) 0.0 See_Comment [Automated [employer] ssage] The system which generated this result transmitted reference range: 0.0 - 10.0 /100 WBCs. The reference range was not used to interpret this result as normal/abnormal. NRBC x10^3 (test code = 3153706953) See_Comment [Automated messa ge] The system which generated this result transmitted reference range: 10*3/?L. The reference range was not used to interpret this result as normal/abnormal. GRAN MAT (NEUT) % (test code = 770-8) 54.8 % IMM GRAN % (test code = 0044434454) 0.30 % LYMPH % (test code = 736-9) 37.0 % MONO % (test code = 5905-5) 5.7 % EOS % (test code = 713-8) 1.5 % BASO % (test code = 706-2) 0.7 % GRAN MAT x10^3(ANC) (test code = 4741848415) 5.89 10*3/uL 1.88-7.09 IMM GRAN x10^3 (test code = 5416284380) 0.03 10*3/uL 0.00-0.06 LYMPH x10^3 (test code = 731-0) 3.98 10*3/uL 1.32-3.29 H MONO x10^3 (test code = 742-7) 0.61 10*3/uL 0.33-0.92 EOS x10^3 (test code = 711-2) 0.16 10*3/uL 0.03-0.39 BASO x10^3 (test code = 704-7) 0.08 10*3/uL 0.01-0.07 H Lab Interpretation (test code = 85301-2) Abnormal [facility] WITH [id number] 08:50:07* Test Item Value Reference Range Interpretation Comme nts WBC (test code = 6690-2) 10.75 See_Comment [Automated [employer]] The system which generated this result transmitted reference range: 4.30 - 11.10 10*3/?L. The reference range was not used to interpret this result as normal/abnormal. RBC (test code = 789-8) 4.72 See_Comment [Automated [employer]] The system which generated this result [...] 33.7 g/dL 31.6-35.1 RDW-SD (test code = 05661-1) 41.9 fL 39.0-49.9 RDW-CV (test code = 788-0) 13.3 % 12.0-15.5 PLT (test code = 777-3) 212 See_Comment [Automated messa ge] The system which generated this result transmitted reference range: 166 - 358 10*3/?L. The reference range was not used to interpret this result as normal/abnormal. MPV (test code = 92109-4) 10.4 fL 9.5-12.9 NRBC/100 WBC (test code = 8971942402) 0.0 See_Comment [Automated me ssage] The system which generated this result transmitted reference range: 0.0 - 10.0 /100 WBCs. The reference range was not used to interpret this result as normal/abnormal. NRBC x10^3 (test code = 9764069481) See_Comment [Automated messa ge] The system which generated this result transmitted reference range: 10*3/?L. The reference range was not used to interpret this result as normal/abnormal. GRAN MAT (NEUT) % (test code = 770-8) 54.8 % IMM GRAN % (test code = 2103504626) 0.30 % LYMPH % (test code = 736-9) 37.0 % MONO % (test code = 5905-5) 5.7 % EOS % (test code = 713-8) 1.5 % BASO % (test code = 706-2) 0.7 % GRAN MAT x10^3(ANC) (test code = 9450632818) 5.89 10*3/uL 1.88-7.09 IMM GRAN x10^3 (test code = 4388563361) 0.03 10*3/uL 0.00-0.06 LYMPH x10^3 (test code = 731-0) 3.98 10*3/uL 1.32-3.29 H MONO x10^3 (test code = 742-7) 0.61 10*3/uL 0.33-0.92 EOS x10^3 (test code = 711-2) 0.16 10*3/uL 0.03-0.39 BASO x10^3 (test code = 704-7) 0.08 10*3/uL 0.01-0.07 H Lab Interpretation (test code = 95064-7) Abnormal [facility] GLUCOSE (AUTOMATED)2023-03-31 02:49:07* Test Item Value Reference Range Interpretation Comme nts POCT GLU (test code = 6682882407) 158 mg/dL 70-110 H Lab Interpretation (test cod e = 45762-3) Abnormal [facility] GLUCOSE (AUTOMATED)2023-03-31 02:49:07* Test Item Value Reference Range Interpretation Comme nts POCT GLU (test code = 2272546764) 158 mg/dL 70-110 H Lab Interpretation (test cod e = 41140-7) Abnormal [facility] GLUCOSE (AUTOMATED)2023-03-31 02:49:07* Test Item Value Reference Range Interpretation Comme nts POCT GLU (test code = 1697297691) 158 mg/dL 70-110 H Lab Interpretation (test cod e = 27142-4) Abnormal [facility] GLUCOSE (AUTOMATED)2023-03-31 02:49:07* Test Item Value Reference Range Interpretation Comme nts POCT GLU (test code = 4742575892) 158 mg/dL 70-110 H Lab Interpretation (test cod e = 43046-4) Abnormal [facility] GLUCOSE (AUTOMATED)2023-03-30 21:38:20* Test Item Value Reference Range Interpretation Comme nts POCT GLU (test code = 2292949772) 229 mg/dL 70-110 H Lab Interpretation (test cod e = 61881-8) Abnormal [facility] GLUCOSE (AUTOMATED)2023-03-30 21:38:20* Test Item Value Reference Range Interpretation Comme nts POCT GLU (test code = 1056574337) 229 mg/dL 70-110 H Lab Interpretation (test cod e = 63519-8) Abnormal [facility] GLUCOSE (AUTOMATED)2023-03-30 21:38:20* Test Item Value Reference Range Interpretation Comme nts POCT GLU (test code = 5942158024) 229 mg/dL 70-110 H Lab Interpretation (test cod e = 40934-0) Abnormal [facility] GLUCOSE (AUTOMATED)2023-03-30 21:38:20* Test Item Value Reference Range Interpretation Comme nts POCT GLU (test code = 9058930038) 229 mg/dL 70-110 H Lab Interpretation (test cod e = 74914-7) Abnormal [facility] GLUCOSE (AUTOMATED)2023-03-30 17:56:37* Test Item Value Reference Range Interpretation Comme nts POCT GLU (test code = 7882936338) 209 mg/dL 70-110 H Lab Interpretation (test cod e = 55719-8) [facility] 17:56:37* Test Item Value Reference Range Interpretation Comme nts POCT GLU (test code = 2110902999) 209 mg/dL 70-110 H Lab Interpretation (test cod e = 60767-9) [facility] 17:56:37* Test Item Value Reference Range Interpretation Comme nts POCT GLU (test code = 3242783733) 209 mg/dL 70-110 H Lab Interpretation (test cod e = 29010-2) Abnormal [facility] GLUCOSE (AUTOMATED)2023-03-30 17:56:37* Test Item Value Reference Range Interpretation Comme nts POCT GLU (test code = 1019431104) 209 mg/dL 70-110 H Lab Interpretation (test cod e = 55804-9) Abnormal [facility] GLUCOSE (AUTOMATED)2023-03-30 13:03:11* Test Item Value Reference Range Interpretation Comme nts POCT GLU (test code = 9890980380) 139 mg/dL 70-110 H Lab Interpretation (test cod e = 78183-4) Abnormal [facility] GLUCOSE (AUTOMATED)2023-03-30 13:03:11* Test Item Value Reference Range Interpretation Comme nts POCT GLU (test code = 1099375565) 139 mg/dL 70-110 H Lab Interpretation (test cod e = 85647-2) Abnormal [facility] GLUCOSE (AUTOMATED)2023-03-30 13:03:11* Test Item Value Reference Range Interpretation Comme nts POCT GLU (test code = 2955588023) 139 mg/dL 70-110 H Lab Interpretation (test cod e = 09985-7) Abnormal [facility] GLUCOSE (AUTOMATED)2023-03-30 13:03:11* Test Item Value Reference Range Interpretation Comme nts POCT GLU (test code = 3153707390) 139 mg/dL 70-110 H Lab Interpretation (test cod e = 77669-3) Abnormal [facility] GLUCOSE (AUTOMATED)2023-03-30 01:21:56* Test Item Value Reference Range Interpretation Comme nts POCT GLU (test code = 7310139094) 225 mg/dL 70-110 H Lab Interpretation (test cod e = 20309-6) [facility] 01:21:56* Test Item Value Reference Range Interpretation Comme nts POCT GLU (test code = 3611897946) 225 mg/dL 70-110 H Lab Interpretation (test cod e = 83108-9) [facility]-30 01:21:56* Test Item Value Reference Range Interpretation Comme nts POCT GLU (test code = 8318983170) 225 mg/dL 70-110 H Lab Interpretation (test cod e = 36154-0) Abnormal [facility] GLUCOSE (AUTOMATED)2023-03-30 01:21:56* Test Item Value Reference Range Interpretation Comme nts POCT GLU (test code = 5778220222) 225 mg/dL 70-110 H Lab Interpretation (test cod e = 54221-8) Abnormal [facility] GLUCOSE (AUTOMATED)2023-03-29 23:02:05* Test Item Value Reference Range Interpretation Comme nts POCT GLU (test code = 4384131756) 200 mg/dL 70-110 H Lab Interpretation (test cod e = 61473-7) [facility] 23:02:05* Test Item Value Reference Range Interpretation Comme nts POCT GLU (test code = 1371520446) 200 mg/dL 70-110 H Lab Interpretation (test cod e = 85120-3) [facility]2023-03-29 23:02:05* Test Item Value Reference Range Interpretation Comme nts POCT GLU (test code = 9774188654) 200 mg/dL 70-110 H Lab Interpretation (test cod e = 95092-0) [facility]23-[facility]-29 23:02:05* Test Item Value Reference Range Interpretation Comme nts POCT GLU (test code = 0659023315) 200 mg/dL 70-110 H Lab Interpretation (test cod e = 81456-4) [facility] 17:48:21* Test Item Value Reference Range Interpretation Comme nts POCT GLU (test code = 6631609381) 276 mg/dL 70-110 H Lab Interpretation (test cod e = 62706-0) [facility] 17:48:21* Test Item Value Reference Range Interpretation Comme nts POCT GLU (test code = 5387962182) 276 mg/dL 70-110 H Lab Interpretation (test cod e = 97312-8) [facility] 17:48:21* Test Item Value Reference Range Interpretation Comme nts POCT GLU (test code = 4643844102) 276 mg/dL 70-110 H Lab Interpretation (test cod e = 88395-6) Abnormal [facility] GLUCOSE (AUTOMATED)2023-03-29 17:48:21* Test Item Value Reference Range Interpretation Comme nts POCT GLU (test code = 4379032584) 276 mg/dL 70-110 H Lab Interpretation (test cod e = 92195-0) [facility] 15:52:57* Test Item Value Reference Range Interpretation Comme nts POCT GLU (test code = 6607326108) 228 mg/dL 70-110 H Lab Interpretation (test cod e = 45024-2) [facility] 15:52:57* Test Item Value Reference Range Interpretation Comme nts POCT GLU (test code = 8086236161) 228 mg/dL 70-110 H Lab Interpretation (test cod e = 19834-5) [facility]29 15:52:57* Test Item Value Reference Range Interpretation Comme nts POCT GLU (test code = 7030208056) 228 mg/dL 70-110 H Lab Interpretation (test cod e = 70623-5) [facility]29 15:52:57* Test Item Value Reference Range Interpretation Comme nts POCT GLU (test code = 4584083301) 228 mg/dL 70-110 H Lab Interpretation (test cod e = 63366-5) Abnormal [facility] GLUCOSE (AUTOMATED)2023-03-29 13:17:44* Test Item Value Reference Range Interpretation Comme nts POCT GLU (test code = 2668677717) 197 mg/dL 70-110 H Lab Interpretation (test cod e = 27213-9) Abnormal [facility] GLUCOSE (AUTOMATED)2023-03-29 13:17:44* Test Item Value Reference Range Interpretation Comme nts POCT GLU (test code = 3414764325) 197 mg/dL 70-110 H Lab Interpretation (test cod e = 28706-7) Abnormal [facility] GLUCOSE (AUTOMATED)2023-03-29 13:17:44* Test Item Value Reference Range Interpretation Comme nts POCT GLU (test code = 1223750727) 197 mg/dL 70-110 H Lab Interpretation (test cod e = 82025-7) Abnormal [facility] GLUCOSE (AUTOMATED)2023-03-29 13:17:44* Test Item Value Reference Range Interpretation Comme nts POCT GLU (test code = 5337114405) 197 mg/dL 70-110 H Lab Interpretation (test cod e = 02290-8) [facility] Zyoiboa2991-75-02 05:19:00* Test Item Value Reference Range Interpretation Comme nts ABO & RH (test code = 20) B POSITIVE IAT (test code = 1185) Negative [facility] Qmruilb6860-03-20 05:19:00* Test Item Value Reference Range Interpretation Comme nts ABO & RH (test code = 20) B POSITIVE IAT (test code = 1185) [facility] Ouheqmx6814-69-62 05:19:00* Test Item Value Reference Range Interpretation Comme nts ABO & RH (test code = 20) B POSITIVE IAT (test code = 1185) [facility] Ucyygnk8113-07-35 05:19:00* Test Item Value Reference Range Interpretation Comme nts ABO & RH (test code = 20) B POSITIVE IAT (test code = 1185) Negative [facility] Consult Notes Date/Time Note Provider Source 2023-04-12 11:56:36 tnth9t8oHXICuloKQ3P3sue+rEO/Jka3mcUk 7E1RTlMcfKI1Tdu1VETaKyDZoEnx1932-07- 27T11:56:36Associated Order(s): CONSULT SENIOR INFORMATICA DEVELOPER-ADULT Care Management Note04/12/2023 11:56 AMCommentsReason for consult - please give recommendation or opinion on: please get patient a second nader Zarco. Her current one is dirty If patient does not have an established provider for this service, please contact the provider on-call. Insurance will not cover cost of brace as brace was ordered on March 31, 2023. Yamel Hassan LMSWSocilaureano [facility] Care [phone]: This SW is not assigned to this team and is providing weekend coverage. Please inquire with nursing staff or assigned care management Thu-Thursday as applicable for more information involving the patient's plan of care/discharge plan. 61475-6Ywvybxd bhajXI9632-71-04F62:58:45Consult noteTXT1.2.840.212198.1.13.104.2.7.2 .805184|[id number] for patient chqb81136-7Zhgcdki [address] Qt[id number] CQERCPXGXLNFPNTQJAWJCI3012-49-96F38: 58:451.2.840.787700.1.72.3.15|1.2.84 0.723326.1.13.104.2.7.2.727879_18844 35542 [facility] 2023-04-12 10:02:33 yDjvz1iEurbO6zse5FQKjhWXyCK/CgMnYprp 5B0UJA6X9+uqBv7mi0spcgSEN5tG0877-19- 27T10:02:33Associated Order(s): CONSULT SURGICAL CO-MANAGEMENT (SCM) Re consult noted for urinary retention, agree with urology c/s, rox would likely benefit from aguilar placement upon d/c with out patient follow up with urology, should also follow up with oncology and possibly production engine repairer/production engine repairer onc. Still stable for d/c from our standpoint, will s/o. Meds for d/c as below:sulfamethoxazole-trimethoprim, 1 tablet, BID- until 04/12/23amLODIPine, 5 mg, DAILYinsulin glargine, 60 Units, QHSlosartan, 50 mg, DAILYomeprazole, 20 mg, DAILYtolterodine LA, 2 mg, DAILYinsulin lispro (human), , TID MEALS+HSJanuvia 50 mgBowel and pain regimen per primary 45457-8Hqirtqv cbalMI7705-30-70N87:04:06Consult noteTXT1.2.840.500755.1.13.104.2.7.2 .055090|[id number] for patient tzhh17566-8Jhkyyzt [address][id number] JLJNFECXNEQMLTAGTVOYIB5755-71-69D85: 04:061.2.840.277470.1.72.3.15|1.2.84 0.362234.1.13.104.2.7.2.727879_18843 22547 [facility] 2023-04-04 08:49:57 9xrRJqBEcsmVfrWLLZsCI6cp6JHYYlTkQ+hi UmZwCk1cWJzbcgKEmCnUKKrIeJk74869-86- 19T08:49:57Associated Order(s): CONSULT MEDICAL ONCOLOGY HEMATOLOGY AND ONCOLOGY CONSULT NOTEDate of Service: 04/04/2023Reason for Consultation: please give recommendation or opinion on: metastatic diseaseReferring Physician / Primary Service: MON[place]NA MARTINEZ Chief Complaint: Neck pain, RUE numbnessDiagnosis: spinal canal stenosis.[facility] 78 [facility] /White [...] N/A 03/31/2023 Surgeon: Natalie Ridley MD; Location: [facility] No family history on file.Social History Socioeconomic [...] Friends and Family: Not on file Attends Jainism Services: Not on file Active Member of [...] THROAT (PHENOL)) 1.4 % spray bottle 1 Melvin, 1 Melvin, Oral, PRN, Vikram Villanueva MD, 1 Melvin at 04/03/23 1409 thrombin (recombinant) (RECOTHROM) topical [...] 20 mg, 20 mg, Oral, DAILY, Dipti Gilmna MD, 20 mg at 04/04/23 0923 tolterodine [...] with the following active problems:#Metastatic breast cancer (ER+/NY+/HER2-)#Bony metastatic disease#Pathologic vertebral fracture#Spinal stenosisDuring this hospitalization [...] 2 = 7 Internal control cells absent.- [place] positive result with 90% tumor cells moderate nuclear staining Fina score 5 + 2 = 7 Internal control cells absent.- Her-2-lisseth negative (1+) of tumor cells membranous stainingChronic conditions#HTN#GERD#OA#IDDM- Per primary team and other consulting servicesPLANS / RECOMMENDATIONS: -No inpatient treatment recommended at this time.-Recommend outpatient PET scan and MRI brain for further staging workup.-Referral to [facility] oncology at discharge-Will plan on discussing further treatment options in the outpatient setting once patient has recovered from surgery.Hematology & Medical Oncology will continue to follow this patient with you. Thank you for involving us in the care of this interesting patient. Please call with any questions or concerns. Patient seen and discussed with Dr. Everett, Faculty. Richar Walsh, DOPGY4 Hematology/Oncology Fellow [facility] Dept of Hematology and Oncology [...] AI/Faslodex + CKD 4/6 inhib+ Bone agent 25217-7Fsnyguz nxhwMX0452817Ckpubqqoht, Rohit1.2.840.697535.1.13.104.2.7.2.8 33823JmzibwrtbsNqojpKR7032-28-71Z14: 43:45Consult noteTXT1.2.840.928397.1.13.104.2.7.2 .048707|[id number] for patient hwog63693-9Uelvubk noteLNIM-HEMATOLOGY & ONCOLOGYIM-HEMATOLOGY & ONCOLOGYUT[address] Jr[id number] NLDREBRNUBQOVMNMCFYTHI0241-64-75I73: 43:451.2.840.198716.1.72.3.15|1.2.84 0.060746.1.13.104.2.7.2.727879_18784 37283 IM-HEMATOLOGY & ONCOLOGY [facility] 2023-03-31 08:26:34 p7q9DgCpAh9IXL4VNT3QiwsVOjocQoewg/d1 /M8EMa7TweTW/stFEfVTNSAJw8HN3357-61- 15T08:26:34Associated Order(s): CONSULT SENIOR INFORMATICA DEVELOPER-ADULT Reason for consult - please give recommendation or opinion on: Patient needs [facility] Social Work NoteOrder and referral sent to [address] [address] F: [phone]. Care Management will follow up regarding delivery status.[email or web address] hospitalP: [phone]: [phone] 30790-4Oyrpuin hxwgYP4057-10-11Z97:27:07Consult noteTXT1.2.840.935808.1.13.104.2.7.2 .703121|[id number] for patient liww63162-9Idhxbjl noteLNUT[id number] CUUFBVBANWCQMKDHCNSXQR1817-22-31B12: 27:071.2.840.387893.1.72.3.15|1.2.84 0.593504.1.13.104.2.7.2.727879_18744 60503 [facility] 2023-03-30 10:44:40 cXnylkJdtbZueBdGE3dgJblJGhayzHodtJIN PM9CzczFh0u2lrKZrSBFh65qtKBj3335-77- 14T10:44:40Associated Order(s): CONSULT ADULT OCCUPATIONAL THERAPY OT GENERAL EVALUATIONConsult received via Quisk, EMR reviewed and evaluation completed 03/30/23. Patient [...] Environmental barriersEquipment Recommendations:Long handled sponge, Long handled candy separator enrobing, Sock aide, Bedside commode. Tub transfer bench if she remains in a setting with a combo tub. I certify that Madeline Parks is under my care and that I had a spdd-sh-pfpm encounter with this patient on: 03/30/23 . [...] Cervical Spinal Precautions, and logrollBracing: Cervical collar: Covington collarCurrent Occupational Performance and/or Treatment:AM-PAC 6 Clicks [...] OCCUPATIONAL ROLES/HOME ENVIRONMENT:Home environment: Lives alone in [facility], Upstairs apartment , and Elevator. Bathroom access: YesBathroom setup: ComboOccupation(s): RetiredFunction prior to admission: Household ambulation, Independent with BADLs, and recieves Assistance with IADLs: groceries are delivered and fezibcsv-nb-ntt assists with laundrySuspected ischemic or hemorraghic stroke [...] and/or pants with independence using Long handled candy separator enrobing, Sock aide as needed.4 Patient will complete [...] 25 MinTotal Treatment Time: 33 MinComplexity: High 92206-2Ewzwhzk itfaZD0989-35-39P26:00:45Consult noteTXT1.2.840.947598.1.13.104.2.7.2 .032885|[id number] for patient bkdv01637-8Lbsuvke jdqoJW770676081Uihpdt Marco Manzano [id number] TUUSBDRSTNUTTMUCCQPEOD5818-94-58A70: 00:451.2.840.931314.1.72.3.15|1.2.84 0.688573.1.13.104.2.7.2.727879_18736 73288 Shayne Manzano OT [facility] 2023-03-29 17:46:38 r5gTqbgZsEn6Qnl7VpqrEl6ReGAr15kN/9AQ cdEDMapmpoyPn+EvHThU5XaVXrUX5595-75- 13T17:46:38 Reason for consult - please give [...] TimeInformation given by: SelfPatient's support system and reservoir caretaker: ChildName and phone number of primary caregiver/support system: Erik Parks (son) [phone] and his , Avis Parks (daughter) [phone]: No;Same as support systemLiving Arrangement: Apartment w/ elevator accessAddress of living arrangement : [address] [facility] [address]Hx the last 12 months, was there a time when you were not able to pay the mortgage or rent on time?: NoIn the last 12 months, how many places have you lived?: 2In the last 12 months, was there a time when you did not have a steady place to sleep or slept in a custodial (including now)?: NoPersons living in home: SelfAre [...] PCP?: YesName of PCP: Dr. Rodolfo Wong [facility] Care Agency: Isa Services: Mary Company: NoEquipment: Walker;Wheelchair: Manual;Scooter;Grab bars;Shower ChairHemodialysis: NoCommunity resources utilized: SSA/SSI/Medicaid;Food StampsFunding Resources: Managed MedicareManaged Medicare name and information: [facility] D[facility] OPEN PPOPrescription coverage plan: [...] Cardona RN, BSN, BC-RNWeekend Care CoordinatorFr 8A-8P Formerly [facility] Care [email or web address] [phone]- [phone] signed by Joanna Cardona RN at 03/29/2023 5:51 PM KWY06606-2Ddqmpbq sjkkVA1173-25-17T63:51:42Consult noteTXT1.2.840.700188.1.13.104.2.7.2 .027914|[id number] for patient xiyj68671-6Leuxbgp noteLNUT[address] YzazPjwiutcmjMsbwmybgfLBAG5484871591 JZZPTJZDXSCEQWNUTHPAFF5095-71-07G35: 51:421.2.840.152572.1.72.3.15|1.2.84 0.772592.1.13.104.2.7.2.727879_18731 26840 [facility] 2023-03-29 13:02:55 kL+S4EMStBtQo35Cgy/+IZdbm+Z3JZ+/lwyr isPCizZQgx0zMBRvfWDULbMvLud22633-05- 13T13:02:55Associated Order(s): CONSULT SURGICAL CO-MANAGEMENT (SCM) Images from the original note were not included.Surgical Co-Management Hospitalist (SCM) Consult ServiceInitial Preoperative Consultation NotePatient: Madelinejossy PopN: [id number] Date of Consult: 03/29/2023 Referring Physician: Dr Garcia for Consult: Perioperative risk assessment and medical optimization/co-managementHPI: The patient is a 78-year-old female with history of type 2 diabetes on insulin, Jardiance, hypertension, hyperlipidemia, GERD, diabetic peripheral neuropathy who was transferred from [facility] due to concerns for cervical myelopathy/ C5 fx. Patient's son and ipiixvir-iq-zpq were at bedside help with history. They [...] any history of any cardiac disease or MO nor any CVA's. The patient moved to the [facility] approximate 1 year ago, prior to that she was living in [facility], she states she may have had a stress test about 2 years ago while in [facility] but is uncertain. She denies any chest pain shortness of breath with activity. The patient does not check her sugars very often but does take Lantus 80 units at bedtime. She utilizes the [employer] in [place]. The patient & family deny any hypoglycemic [...] Friends and Family: Not on file Attends Jainism Services: Not on file Active Member of [...] on File External medications were found from [facility] [place] and reconciled as belowCurrent Discharge Medication List [...] TID MEALS+HSIV meds: PRN meds:acetaminophen, 650 mg, H7XLBFakqyfgak 50 % in water (D50W), 25 mL, PRNglucagon, 1 mg, PRNhydralAZINE, 10 mg, S8XQEFcbsdnwntH, 20 mg, Q15MIN PRNmorpHINE, 2 mg, S6ACGVjuwcxapzext, 4 mg, D3UFGZmoegmbbzbjxa glycol (MIRALAX, CLEARLAX, HEALTHYLAX) oral powder, 17 [...] regions of central spinal canal stenosis. AF: 21199. RL: 8228. Cardiographics (if applicable):ECG: Echo: Stress Test: CXR:PERIOPERATIVE RISK ASSESSMENT CALCUATIONS:All from MD thornton, calculated today unless stated otherwiseFunctional Status/Newton Activity Score Index:1.75 or 2.96 METsRCRI (Landa Index):1, 6.0 %Brar Perioperative Risk of MO or Cardiac Arrest:1.3 % risk of periop [...] functional statusFor cardiovascular risk assessment, per the [place] [employer] guidelines, Proceed as scheduled [...] workup, PT/OT, possible surgeryJuskatie Gilman MD,Surgical Co-Management HospitalistAgarfield memorial hospitalt Professor General Internal MedicinePortions of this note were created using a voice-recognition transcribing system. Typographical errors and incorrect words or phrases may have been missed during proofreading. Please interpret accordingly. 88359-5Qucgucs kiieAG3527-77-05V76:12:13Consult noteTXT1.2.840.500447.1.13.104.2.7.2 .255582|[id number] for patient bgkc63224-9Adbufjm noteLNUTMB[address] StreetPtqpNgazirmoiZhxwicwqgFKBG2957324028 NSVXQEQWFFYGUXQIMQZWGE7412-68-78I08: 12:131.2.840.238937.1.72.3.15|1.2.84 0.701733.1.13.104.2.7.2.727879_18731 29457 [facility] 2023-03-29 11:41:47 ECQu8bexsxYo8D5vxyUQbadB91jG6ueAb5nO qjDzIPDqXlWzPhDt6eg46NY0uuPJ3095-36- 13T11:41:47Associated Order(s): CONSULT SENIOR INFORMATICA DEVELOPER-ADULT Care Management ConsultConsult received. Reason for consult: Please assess for discharge needs (SFA/DISPO)CM awaiting clinical notes for DC planning assessment. For urgent or immediate discharge needs please page on-call: [phone] Martinez, RN, MSN, ACMWeekend Care CoordinatorAvailable Thu-Thursday only Office: [phone]: This CM is not assigned to this team and is providing weekend coverage. Please inquire with nursing staff or assigned care management Thu-Thursday as applicable for more information involving the patient's plan of care/discharge plan. 89655-6Louvupb wdtfTK3636-12-73R78:42:14Consult noteTXT1.2.840.817788.1.13.104.2.7.2 .706160|[id number] for patient nxwh98589-7Gqtsheb lzzfQQ837715022Yrvznat Martinez RNUT[address] PupfHdjmyxlugEozwusqrgOUVO4797624113 ZZJKVCPZSXJIUOABZHGRQU8778-63-81D39: 42:141.2.840.298121.1.72.3.15|1.2.84 0.625025.1.13.104.2.7.2.727879_18731 29585 Marion Nieves RN [facility] 2023-03-29 10:05:00 oSeYOuZCCM+3SLYrAbm4iGrvyPU4+g0SiKr6 XZ0RV+ftfu5bIes+mctsxXZiKi751863-05- 13T10:05:00Associated Order(s): CONSULT ADULT PHYSICAL THERAPY Patient [...] Interpretation: < 9 - Increased risk for dyylx2IXR - please see gait section for details. [...] denies pain before and after sessionCOMMUNICATIONPrimary Language: Guyanese Able to Verbalize needs: Yes Vision:glasses Hearing:hard [...] in Minutes: 35 minKurt Pitts PT, DPT [facility]Physical Therapy Rehabilitation [facility] 30904-1Eyqrlqf bcjfCE8294-04-03C17:02:29Consult noteTXT1.2.840.223079.1.13.104.2.7.2 .732658|1717486116BJDihqkucau for patient isbb13827-4Nwsbvpa noteUT[address] StreetXtzgP[id number] RGBHNANZZWMVKGJEYARLXE8508-00-99D76: 02:291.2.840.762657.1.72.3.15|1.2.84 0.741589.1.13.104.2.7.2.727879_18731 08248 [facility] History and Physical Notes Date/Time Note Provider Source 2023-03-28 23:24:09 c+RghC/FsynZ/jEgdEJ5 Wp4wiefuL/SpAAhflmgrNr rz+WHpLPDC4pnn2AMsQtM50232-46-47Y97:24:09F ormatting of this note is different from the original.NEUROSURGERY HISTORY AND PHYSICALAttending Neurosurgeon: Dr. Bang: Neck pain, RUE numbnessHPI: Madeline Parks is a 78 year old female with a PMH of DM2, HTN, HLD who presents as a transfer from [facility] for an evaluation of neck pain [...] 1.6 m (5' 3") Exam:Awake, alert, oriented g0PMCJM bilaterally at 3mmEOMI bilaterallyFace symmetricUPPER EXTREMITY STRENGTH EXAM: R 5/5 5/5 5/5 5/5 5/5 D(C5) B(C6) T(C7) Body Cleaner(C8) I (T1)L 5/5 5/5 5/5 5/5 5/5 [...] with assistanceNolan Moreland MDNeurosurgeryFor inquiries please page [phone] signed by Betito Nunes MD at 03/29/2023 11:00 AM CDTAssociated attestation - Betito Nunes MD - 03/29/2023 11:00 AM CDT I personally evaluated and am primary in decision making on, Madeline Parks, and I agree with the documentation by neurosurgery resident, Nolan Sin MD.88800-1Wocbszp and physical ebajCR3621131Vyfttb, Rudy P1.2.840.169983.1.13.104.2.7.2.693016Aaeqc qWnjhTOT4603-74-20Z48:00:49History and physical noteTXT1.2.840.325950.1.13.104.2.7.2.12848 9|4428311562ZTNsethimrr for patient wycc29236-8Quivxkl and physical noteLNUTMBUT - [address] SqpoXsmcotjuhBzxuzwrzmLGEB5629096934EUVOPB JQKYZKYEGLLRXTAZ7538-15-42I00:00:491.2.840 .692491.1.72.3.15|1.2.840.291710.1.13.104. 2.7.2.727879_1873004603 [facility] Notes Date/Time Note Provider Source 2023-04-22 14:59:28 5IqrCRJ0LK9hBZ7hcdZ4 ne7ym+t/s UJcH3cr2m/0oIHd4R1I5V3+Bh4Iou APqiY16810-05-56T40:59:28Form atting of this note might be different from the original.Images from the original note were not included. 58231-7Jpjwwehnh encounter OlkgOR3978-91-50B82:04:06Tele phone encounter NoteTXT1.2.840.880122.1.13.10 4.2.7.2.675385|8460413212PTIz ailable for patient zper33696-1QczkTM893883228Ofn fantasma [address] FxsoBiwunelpoSsyroswpnXHTY274 8271649NVGMMIMUACKHHGETCHYKXI 2387-53-32D83:04:061.2.840.11 4350.1.72.3.15|1.2.840.634675 .1.13.104.2.7.2.727879_189254 7399 Chelsea Smith MA [facility] 2023-04-21 15:55:32 gXzYsYaJGes08GKic+BE ImjeQ7Z+P WTejwJVUtZymbF0Tr2VVYEP86Xx9U fZbi8r9816-51-95Z70:55:32Form atting of this note might be different from the original.Spoke with nurse at [place]-Working on getting photos uploadedFaxed orders & Face sheet Confirmation Received 22100-4Qjfbstnxc encounter ZsarTD6187-28-00M02:58:11Tele phone encounter NoteTXT1.2.840.235192.1.13.10 4.2.7.2.450375|4325018205RFLf ailable for patient jpdx46007-4QolqRZ952392623Bwm cie L Elliott [address] 8458236YEWKDKYYLWKYNXVAHTIHZW 9063-76-46C59:58:111.2.840.11 4350.1.72.3.15|1.2.840.666961 .1.13.104.2.7.2.727879_189141 2641 Chelsea Smith MA [facility] 2023-04-21 15:55:03 HCMxNMkpxqA21tFCmWAp 4mnImDvCB zqozqOVEoATCI5OjyjQksxnoWNYyo JPLAMq3674-71-31B58:55:03Form atting of this note might be different from the original.Dup Encounter-Closing 86486-9Zvundjfkf encounter MaeiWK8231-46-47I56:55:20Tele phone encounter NoteTXT1.2.840.246059.1.13.10 4.2.7.2.320709|6259577979IBQp ailable for patient kmqh67877-4MqtbJY251460937Rvh cie L Elliott [address] 3149889QDUJSLHGMJIASGWORZUEUD 7454-52-59Z98:55:201.2.840.11 4350.1.72.3.15|1.2.840.734833 .1.13.104.2.7.2.727879_189141 0243 Chelsea Smith MA [facility] 2023-04-21 15:38:29 2FsLYD82BsaFxrDCBRDi 7Wq2CXU6b 0WtnDestVM4Pj8lIwo9UJLAl5LxcZ qO8X4u4000-66-07R65:38:29Form atting of this note might be different from the original.Okay for [facility] wound care staff to remove patient's césar. Prefer for their team to send picture of incisions if possible. 10758-5Tvlikcybs encounter KvrfXI6475-08-02Y56:39:31Tele phone encounter NoteTXT1.2.840.422009.1.13.10 4.2.7.2.313100|1525861122PYLt ailable for patient ggsm13039-1PomkBEBINPVFRW[address]TX[address] 0039628EVIXWMWYYIUBLXLPHSSULD 3282-28-77T09:39:311.2.840.11 4350.1.72.3.15|1.2.840.133584 .1.13.104.2.7.2.727879_189138 4825 [facility] 2023-04-21 15:08:54 hmyMEdldVo2LIaIi3p8w FhG12bLNH 4zhMt+w3Ch+cxGjE+QD+iWLgsf5AZ 6TIYtT8554-19-58D93:08:54Form atting of this note might be different from the original.Attempted to return call, invalid number for RN at [phone] signed by Billie Burk RN at 04/21/2023 3:09 PM PMP66539-0Trdswdbag encounter DnfpFK7768-14-99E95:09:24Tele phone encounter NoteTXT1.2.840.748805.1.13.10 4.2.7.2.994969|9089275661XEMu ailable for patient rhss24912-8HtqiEQ692484958Gac fany Hansen [address] 2526526QCXQVWZFQCNRBNAWUUIXUH 9539-08-72E95:09:241.2.840.11 4350.1.72.3.15|1.2.840.897978 .1.13.104.2.7.2.727879_189134 2395 Billie Wm CARROLL [facility] 2023-04-21 14:53:38 81y4UkgdAsHUwgdweI9+ Z9HLvmppX G4ac1Tc46pnO9DhVMs0dpISozBrJY b7PEXy5813-25-90I44:53:38Form atting of this note might be different from the original.Madeline Parks is a 78 year old femalePatient nurse is calling asking if she needs a new appointment for césar removal or if she can remove it. Please advice thank you 82250-7Maslxtetv encounter CaodLD6773-97-80U92:55:05Tele phone encounter NoteTXT1.2.840.483327.1.13.10 4.2.7.2.123489|7021883824PJQh ailable for patient jsnm37045-1CiroTI935099800Vyo yimi Benjamin [address] YyiwSjoilnngiBdnbevzqfMSDP286 9638940ECRKKNDOPUUEHPKSKAZJNZ 1250-17-15R61:55:051.2.840.11 4350.1.72.3.15|1.2.840.935144 .1.13.104.2.7.2.727879_189132 0070 Marion Benjamin V [facility] 2023-04-21 11:43:27 WNylRF7uwW57dmAqy5JD dYc1rclUb 56YgT257bk6gYW4t3LzhnWbyWf7M0 ycWUGa1982-17-29Y92:43:27Form atting of this note might be different from the original.Preferred Qissqrygxeipkj signed by Chelsea Smith MA at 04/21/2023 11:45 AM WZS45876-2Gjivbxiay encounter UaufSX8940-00-41G72:45:05Tele phone encounter NoteTXT1.2.840.292555.1.13.10 4.2.7.2.709114|2050445981HYLf ailable for patient uike92079-6BeiqXVHTXWTAIN[address]TX[address] 0378709JDYIDQFRLSHVTQJLSWHHHG 8162-16-09D34:45:051.2.840.11 4350.1.72.3.15|1.2.840.213772 .1.13.104.2.7.2.727879_189108 [address] [place] [address] 2023-04-21 11:30:07 wQ6T2RYq+0DPEqEG6F+e MHu4Ry0/1 qsOfmzpRzXQXwwO2O/gz4n+rv9Ecf xKPqlt1757-50-31E69:30:07Form atting of this note might be different from the original.Madeline Parks is a 78 year old female Avis daughter in law calling states that [facility] is able to remove the césar for patient. They are in [place] and do not transport [facility]. Patient will not be able to make her appt tomorrow. Please contact Wound Care at: PH: [phone]: [phone] advise, thanks. 08084-5Cysgkskvt encounter YsmcEC5711-60-40X25:31:25Tele phone encounter NoteTXT1.2.840.278663.1.13.10 4.2.7.2.073039|2893059088CCSo ailable for patient mpls03455-0AwwdPX507279779Qeq morgan Hay[address]TX[address] 8109642OQGELDWOKBUTPPBYQCBWFJ 4720-33-61J74:31:251.2.840.11 4350.1.72.3.15|1.2.840.381571 .1.13.104.2.7.2.727879_189106 4820 Yeimy Hay [facility] 2023-04-17 12:29:34 eLkzY2TsHR/lyuG9GnYr asQjK9Lie de3Ghw7abuB/Bgv5XBQJYfIrTWRGW Z6Y4ab6093-82-56J70:29:34Form atting of this note might be different [...] that they have been closed out. Thanks! 35628-2Rdbitefir encounter XpxhQL3231-78-95T92:41:03Tele phone encounter NoteTXT1..840.184717.1.13.10 4.2.7.2.005418|6290731854WODv ailable for patient nfni17485-6BnmeTE231804006Xtc me Yulisa Ochoa[address] IeuoRjsaadmesZiwmoshalXRPI408 1923449TUQSSJALXQEOCIXNKTPTUS 6666-75-69J69:41:031.2.840.11 4350.1.72.3.15|1.2.840.844312 .1.13.104.2.7.2.727879_188935 7254 Anish Singh [facility] 2023-04-17 10:51:24 MkABdzo1G0X2vA+NyrfK GYfBupbi9 KxZyGnjIp7TnFQLQWGQf/QtlFAbM7 RyWezL1220-12-10E74:51:24Form atting of this note might be different from the original.Please advise 07163-0Stsuabyug encounter BicrDT6885-22-05Q23:51:30Tele phone encounter NoteTXT1.2.840.407776.1.13.10 4.2.7.2.433178|9538275216JIYp ailable for patient ctev57063-3JixxMS971428875Baa diandra Kellie David[address]vdGal[address]onGalvestonTXTX[address] 3072619KJBHLUTISEHFVVPVJDBSWG 4714-26-44W56:51:301.2.840.11 4350.1.72.3.15|1.2.840.919183 .1.13.104.2.7.2.727879_188924 4486 Liza Pate [facility] 2023-04-16 10:33:00 5Bflq5Lvflrhytbl82p9 /S7ZrNdOM 7fofOJLKGwJegmWIbtM1Yl4zSksjM Kkq+b14654-12-13I10:33:00Form atting of this note might be different from the original.Madeline Parks is a 78 year old female daughter in law calling to schedule Oncology appointment. Please call [phone] signed by Rebecca Suarez at 04/16/2023 10:34 AM XSF91742-4Dezfvnfee encounter DjtxAT5555-41-82M53:34:13Tele phone encounter NoteTXT1.2.840.851387.1.13.10 4.2.7.2.054152|3581953330LTVp ailable for patient rnde71267-9HksnYW520677008Eoz ra Sims[address] AjlcOalgbiynpVgjzzxcayNLKG449 0217090DAJGAUMSYYALWNXZFNTFUH 1127-19-02T53:34:131.2.840.11 4350.1.72.3.15|1.2.840.971885 .1.13.104.2.7.2.727879_188807 8923 Rebecca Suarez [facility] 2023-04-15 10:28:56 JZjatTA10iIGAnTd+vuv ctOUTELng Jc3MvUIxuVI2rADt4fYd7DNSMMlUq zmdp/f9866-31-49B87:28:56Form atting of this note is different from the original.TRANSITIONAL CARE MANAGEMENT ASSESSMENT04/15/2023 Madeline ParksChbmz543842NUiqfsgg Ann Ellis is a 78 year old /White female was admitted on 03/28/[address] She was discharged on 04/14/23 with discharge disposition of HR- Routine Discharge.Admitting Physician: Betito Nunes PDischarge Diagnosis: cervical myelopathy, spine metastasisNo linked episodesTCM Hfs-mfru-ji-face outreach documentation:Discharge AssessmentChart Assessed: 04/15/23Chart Reviewed - Post Discharge Call Deferred due to Change in Discharge Status.: Discharged to SNF (SNF location: ([place] [address]; phone: [phone]; fax: [phone]))TCM Outreach Completed: 04/15/23 Future Appointments: Future Appointments Provider Department Dept Phone 04/22/2023 11:00 AM Sarah Camp [facility] [phone] 05/12/2023 11:00 AM Parvin Gillespie [facility] [phone] 12259-1Hsildemrv encounter YkgwYJ9961-87-56O71:29:58Tele phone encounter NoteTXT1.2.840.194199.1.13.10 4.2.7.2.771506|3870100031TKZk ailable for patient kfgd13568-6SgwqNS549640813Nxa khushbu Genao RNUT[address]onGalvestonTXTX[address] 5679033FQBNIAIXVJCINQFFDDCGAO 1882-23-16Y05:29:581.2.840.11 4350.1.72.3.15|1.2.840.605009 .1.13.104.2.7.2.727879_188700 8256 David Genao RN [facility] 2023-04-14 01:12:13 QtJHXrOmPxBWtYrAQW6y Vzdw2Y4bA SkWmDD+bEh/KqqxbgtDs1twtgqSxN 3R7zaY3687-16-54Q37:12:13Form atting of this note might be different [...] RiskGoal: Absence of infectionOutcome: Progressing as expected 41232-8Oner of care znnbDY1380-03-76U82:12:19Plan of care noteTXT1.2.840.885213.1.13.10 4.2.7.2.111565|8605987105XBYi ailable for patient lthi31495-1VjxgFR119663394Enl an E Nichols RNUT[address]TX[address] 3360108IFIYUTBFNBBJKIOBZSZPXL 8606-05-84A43:12:191.2.840.11 4350.1.72.3.15|1.2.840.779338 .1.13.104.2.7.2.727879_188544 1223 Nelida Peña [facility] 2023-04-13 00:42:02 QImPniB7AI54hngIbvpI tyEMeESyl S7T8IA9bcKnzM+AsILy8zuEIEgJ/1 By+Z1612-02-11G39:42:02Form atting of this note might be different [...] RiskGoal: Absence of infectionOutcome: Progressing as expected 01802-9Azux of care aspbKL8656-65-36O04:42:05Plan of care noteTXT1.2.840.095435.1.13.10 4.2.7.2.432197|1912238442UAJg ailable for patient evdr03462-8NgonCOCGVNHTBE[address]TX[address] 1081288HZOQGTZYJBOROGSDWQSZEJ 0698-34-44T50:42:051.2.840.11 4350.1.72.3.15|1.2.840.641732 .1.13.104.2.7.2.727879_188451 3176 [facility] 2023-04-12 10:54:13 pvhLKgpH3EUvPmUX2Xc8 DXLC3gm17 /Ex2MjqcOwe1mcg2LXdCNp8eKuRVt sr4JvG4527-28-27D50:54:13Form atting of this note might be different [...] Pt left sitting up in bed comfortable. 84670-2Adqrx KqrvUO5450-28-75N91:56:15Nurs e NoteTXT1.2.840.920009.1.13.10 4.2.7.2.692651|2285298849BJWy ailable for patient ytga91185-3GglcSO414735373Vza mamta Amaya RN[address] TjgtBlklccigyGuhpvnjjmFTKG555 0524300GOMYVNNGUPPHCIIQTIXVLQ 2570-04-47K25:56:151.2.840.11 4350.1.72.3.15|1.2.840.980911 .1.13.104.2.7.2.727879_188440 7846 Rona Amaya RN [facility] 2023-04-12 01:50:47 256hptN2la22N9gXIHvJ LyFWrQiD5 GJUlivV///yvIYJgHg7Q62dofHD9M a8eeaE2753-80-29L30:50:47Form atting of this note might be different [...] RiskGoal: Absence of infectionOutcome: Progressing as expected 51840-9Ubsw of care jmilBF4590-34-88S84:50:53Plan of care noteTXT1.2.840.743110.1.13.10 4.2.7.2.043867|2055676833HMXq ailable for patient wyvi90809-0TtlkQK363783636Yoy henry Burt RN[address] 5002880XYFASJZVKTTQZNOPESHNSO 4584-18-80S68:50:531.2.840.11 4350.1.72.3.15|1.2.840.140324 .1.13.104.2.7.2.727879_188426 8846 Suze Burt RN [facility] 2023-04-11 11:32:04 HK3PB+4LJiRmBEtHneyg dtACCsp/y /T8BXkqCzExC5AsGDWClV4WI92I5r s7O1bQ0763-45-91Q48:32:04Form atting of this note might be different [...] RiskGoal: Absence of infectionOutcome: Progressing as expected 45487-8Sanq of care codgOT0297-25-10X37:32:11Plan of care noteTXT1.2.840.455224.1.13.10 4.2.7.2.073883|4345053768HORh ailable for patient llxz90134-0TwslIE859694612Sih ole Thompson RN[address] 9962922NISZHYDUHIGQLNBWFEFZTV 5153-82-65U36:32:111.2.840.11 4350.1.72.3.15|1.2.840.600212 .1.13.104.2.7.2.727879_188416 0307 Rema Kruger RN [facility] 2023-04-11 07:36:55 uq6AftnPwOkBYOv0Pm9N XzPZOFvHE Nws93jfK9t7BZX+COn9jFHACjkPJm 1VECIf5051-03-57O79:36:55Form atting of this note might be different [...] RiskGoal: Absence of infectionOutcome: Progressing as expected 61228-6Sztk of care thowGQ8976-72-38B66:37:00Plan of care noteTXT1.2.840.127653.1.13.10 4.2.7.2.861789|5469675104FJVg ailable for patient okqn06650-5VzreDC408287012Cyt bolivar Silva RN[address] 5367006YCZHODBMNWQWGJSMKWCGKV 9130-84-09X17:37:001.2.840.11 4350.1.72.3.15|1.2.840.685654 .1.13.104.2.7.2.727879_188408 7022 Moni Silva RN [facility] 2023-04-10 11:32:11 /kUpTO9TLmV0a+8R8KTO CRF2tuRpB s/CFNK+4zpRgnrpHS9bjw1Q9IxW4v 3IlJIh2202-70-26N95:32:11Form atting of this note might be different [...] RiskGoal: Absence of infectionOutcome: Progressing as expected 52097-7Mfxm of care qblyHC3284-85-65V33:32:19Plan of care noteTXT1.2.840.876969.1.13.10 4.2.7.2.557660|5089363029WTNx ailable for patient tpzq48968-4UfvqYMXXJKRHGX88 [address]TX[address] 8748675EERYTYCXCEVPRJZWFAXYQC 8138-65-02T32:32:191.2.840.11 4350.1.72.3.15|1.2.840.060984 .1.13.104.2.7.2.727879_188342 2327 [facility] 2023-04-09 11:19:14 TVvd5B84yQ4j5vRaqfpr pxwheaRwr 23ChJHvD62fx3B9JLDtmCqU7nKZ6n 3b26410454-69-68P89:19:14Form atting of this note might be different [...] RiskGoal: Absence of infectionOutcome: Progressing as expected 31592-5Ahxr of care dcibYD2979-71-66H46:19:24Plan of care noteTXT1.2.840.521745.1.13.10 4.2.7.2.742222|4371497208POZz ailable for patient wwty23690-4JklhOHUGDOQSZC88 [address]TX[address] 8880204JTDHBUMQTJXKZYDAVCOYWU 0787-62-40S53:19:241.2.840.11 4350.1.72.3.15|1.2.840.127526 .1.13.104.2.7.2.727879_188237 2153 [facility] 2023-04-08 11:31:16 1BvfFndDOFQ5U+WEaVJx JOmrsCiaU LQPO6hafmgu/F6xNum/ioxjT2q3JV 7GGWp34398-46-23I88:31:16Form atting of this note might be different [...] RiskGoal: Absence of infectionOutcome: Progressing as expected 32970-7Lujk of care esxkFI8960-05-04B85:31:26Plan of care noteTXT1.2.840.997329.1.13.10 4.2.7.2.720790|7205709104UMHp ailable for patient aopq55632-6MuseZGXVWTEUCY[address] SgmrUaovctzdmIjttvluvpOEWB974 5206465TAHGUUQUAZVRGWTAPDKEIO 0563-07-86F63:31:261.2.840.11 4350.1.72.3.15|1.2.840.954611 .1.13.104.2.7.2.727879_188130 8281 [facility] 2023-04-08 10:30:48 /Meg/oUZ5Gvw8EK++IBJ 6iDColCkp +tMW5yszRpWFQ/+jg382Vqw7cg7Hf hSx9ZF1892-44-71P30:30:48Form atting of this note might be different [...] subperiosteal exposure from C2 to T2. The [employer]le[employer] navigation array was attached to the inferiormost spinous process. An O-arm spin was done for neuronavigation. Accuracy was confirmed with bony landmarks. Using neuronavigation, we first placed C2 pars screws bilaterally without complication. We then proceeded to place T1 and T2 pedicle screws using neuronavigation without complication. Attention was then turned to the subaxial cervical spine screws from C3-C6. We drilled our initial pilot plant research technician holes for our lateral mass screw placement. [...] for all critical portions of the procedure.CPT 48888, 75833 x 6, 60509 and 63894, 01540, 24370, 1146325464-1Urtdgnl Surgical operation mrgcUO5595851Wroq, Rishi1.2.840.943483.1.13.104. 2.7.2.398929BhzjHmnaqMM7358-9 0:22:36Surgery Surgical operation noteTXT1.2.840.482947.1.13.10 4.2.7.2.525298|8678616171JBLv ailable for patient snrn26757-3SyxrZWMS-ACUDJPOHY [facility] HqxaYyceddneqDcjdbmynrCBYZ157 2752523IMLROZXUKCUUAFRMEEKRMR 6237-17-85V14:22:361.2.840.11 4350.1.72.3.15|1.2.840.633968 .1.13.104.2.7.2.727879_188148 9534 NS-NEUROLOGICAL SURGERY [facility] 2023-04-08 10:30:48 yNTUhGQBlrirLvtTICpD HHcypqIhd 2v0FDG2sPZNvWuwKFWAVV9jMP3vd1 Z1NZxZ4596-78-95E98:30:48Form atting of this note is different from [...] Implant Name Type Inv. Item Serial No. Business Job Titles Lot No. LRB No. Used Action [facility] CAN CRS 30MM [facility] FRZDR #1024-12 - [id number] Tissue, Human GRFT BN CANC CRSH 30MM [facility] FRZDR #1024-12 [id number] [facility] T[facility] [phone] N/A 1 Implanted GFT BN MAX DMNZ BN MTRX 10CC ALGR[facility] PTTY # - [id number] Tissue, Human GFT BN MAX DMNZ BN MTRX 10CC ALGRF PTTY # [id number] [facility] TISSUE [facility] [phone] N/A 1 Implanted GLOBUS QUARTER 3.5X16MM SCREW; [...] without complication in stable condition.Clyde Akers MDNeurosurgery, PGY-6MWilson [facility] Inquiries, Page 83259BAQ Inquiries, (982-6-THWYIQ) 38786-9Gobjhfiq hynqGB7555-22-25D71:16:46Prog ress noteTXT1.2.840.600268.1.13.10 4.2.7.2.776735|8572692809UUPh ailable for patient sufo69841-7HrrvNDQXMKKJSL[address] [id number] 9387-41-03S41:16:461.2.840.11 4350.1.72.3.15|1.2.840.413844 .1.13.104.2.7.2.727879_188146 8725 [facility] 2023-04-07 16:41:51 716fiRnswwAQuk7j8typ 8ebQijg5I 1fYJD3xfjSbDS5GG3r3StnmgivCJE gXyoPz5033-72-26O49:41:51Form atting of this note might be different from the original.Problem: Falls, Risk ofGoal: Absence of fallsOutcome: Progressing as expected Problem: Mobility - ImpairedGoal: Able to achieve maximum mobility levelOutcome: Progressing as expected Problem: Infection RiskGoal: Absence of infectionOutcome: Progressing as expected 65130-3Cjee of care ozsfOU9545-00-21A08:41:56Plan of care noteTXT1.2.840.904123.1.13.10 4.2.7.2.997387|[id number] ailable for patient ippf96157-5TqeaNBSUOZSGWK[address]TX[address] [id number] 8912-96-38W08:41:561.2.840.11 4350.1.72.3.15|1.2.840.363732 .1.13.104.2.7.2.727879_188061 5402 [facility] 2023-04-07 03:58:55 C6a4v4GJ78pHvxOqkBto c7vEFzqMd DSoV3YQ8HOpjkP2ZTtnEEFbmMx5Vq TbDi9j0690-42-92T42:58:55Form atting of this note might be different [...] RiskGoal: Absence of infectionOutcome: Progressing as expected 68206-6Kzgx of care fsecKB5037-86-80Q47:58:58Plan of care noteTXT1.2.840.779236.1.13.10 4.2.7.2.884075|3204736593TJTt ailable for patient [id number] kayode Acharya RN[address] [id number] 7400-30-79Y25:58:581.2.840.11 4350.1.72.3.15|1.2.840.199294 .1.13.104.2.7.2.727879_187967 7172 Hilaria Acharya RN [facility] 2023-04-06 08:23:55 ShzpBst2XMe5TCeM5b2C 39S8nuNL4 nIclXOcwrkbkLG0UneQDXc5xG5w09 VZ0ZLU8379-75-10O78:23:55Form atting of this note might be different from the original.Problem: Discharge PlanningGoal: Adequate for dischargeOutcome: Progressing as expectedGoal: Effective communicationOutcome: Progressing as expected 70940-2Nxfg of care bwtpVB1451-25-87G62:23:58Plan of care noteTXT1.2.840.114488.1.13.10 4.2.7.2.172876|5777800038ZRHi ailable for patient yhic04796-7ZqbmGZ952386796Sdb a L Gomez RN[address] [id number] 2740-89-19E73:23:581.2.840.11 4350.1.72.3.15|1.2.840.163271 .1.13.104.2.7.2.727879_187891 3584 Ama Vasques RN [facility] 2023-04-06 06:01:40 UACNrzlHK96pyXDWmuUO K7nVLWPcD UAFmXT3kaTv07ZjSJ7sdzfJUaSRjj 1NdAOd7562-40-95U49:01:40Form atting of this note might be different [...] achieve maximum mobility levelOutcome: Progressing as expected 94397-2Zabe of care mrtsUZ7959-36-08L64:01:43Plan of care noteTXT1.2.840.680837.1.13.10 4.2.7.2.128352|6598422662NIGw ailable for patient [id number] ryl Clemons RNUT[address] [id number] 7554-81-16T26:01:431.2.840.11 4350.1.72.3.15|1.2.840.783522 .1.13.104.2.7.2.727879_187882 4074 Marya Dial RN [facility] 2023-04-05 09:26:38 SEqbfeXwqdwFDGQssH4P 8Wm44dVZn Q4VPAb4CcJB8qhob1HtfqwKjLlE4/ vl908z1643-01-43Z25:26:38Form atting of this note might be different [...] achieve maximum mobility levelOutcome: Progressing as expected 13909-7Dxov of care pucqAU4316-17-11J50:26:43Plan of care noteTXT1.2.840.713903.1.13.10 4.2.7.2.976949|4093781796GUOt ailable for patient gtjz78284-9HdehBW088909057Xkc mariza Iyer RN[address]onGalvestonTXTX[address] [id number] 3893-10-03C25:26:431.2.840.11 4350.1.72.3.15|1.2.840.559729 .1.13.104.2.7.2.727879_187865 5427 Anaya Iyer RN [facility] 2023-04-05 05:26:34 YAxP2r46FDEz/k9jRopZ RakM3aX+F /UUWWUZhrNzOF4liKZateOOG6XT9j YZNSG62395-95-16V33:26:34Form atting of this note might be different [...] achieve maximum mobility levelOutcome: Progressing as expected 82820-9Ubke of care gahfIB7569-58-62K68:26:37Plan of care noteTXT1.2.840.275514.1.13.10 4.2.7.2.034014|8219732388LNPx ailable for patient lten86097-1VendPGYPZAYRZG[address]TX[address] [id number] 4833-39-58D26:26:371.2.840.11 4350.1.72.3.15|1.2.840.123703 .1.13.104.2.7.2.727879_187863 3048 [facility] 2023-04-04 17:25:26 RxejJRMOkjhuVMYJeJHK Nn0CvJFbk EwFnn757FRMsrBa6atKJW+ISYq9fV wJGf5T3452-41-07R15:25:26Form atting of this note might be different [...] achieve maximum mobility levelOutcome: Progressing as expected 33923-2Epmp of care ayulJJ6953-17-50L91:25:30Plan of care noteTXT1.2.840.663166.1.13.10 4.2.7.2.835130|5593902785TUDy ailable for patient cjdu35231-3WxdsTS033629419Nns gisel Silva [address] [id number] 0507-80-69Q84:25:301.2.840.11 4350.1.72.3.15|1.2.840.308731 .1.13.104.2.7.2.727879_187851 5830 Henrietta Silva [facility] 2023-04-04 04:53:23 q4WcTJ4gylxokc4QKs60 VymLq5ssJ LmVX9MoSdaJLquiphPglr/4W6JHnf Ftkqfy7020-15-81K56:53:23Form atting of this note might be different [...] achieve maximum mobility levelOutcome: Progressing as expected 01693-9Itom of care gqurLL8772-86-63V46:53:26Plan of care noteTXT1.2.840.717527.1.13.10 4.2.7.2.624059|5471918971UNBi ailable for patient bnuq63702-4VzvnCFLEYKQJKS43 [address]TXTX[address] [id number] 2101-65-04B12:53:261.2.840.11 4350.1.72.3.15|1.2.840.375551 .1.13.104.2.7.2.727879_187840 9170 [facility] 2023-04-03 08:26:10 iZ3CNjr8ynA+qMzDTzYl kYeGNCmWR LGuUqu8wnIFgDul9OUp1jJrLeqxin xZ6kXK3205-58-78R13:26:10Form atting of this note might be different [...] achieve maximum mobility levelOutcome: Progressing as expected 71597-3Nnyt of care dmyqDP1197-01-48G70:26:15Plan of care noteTXT1.2.840.262376.1.13.10 4.2.7.2.570471|[id number] ailable for patient mgtw13949-8OblvWTOCSWAITD88 [address] [id number]V 2468-55-95Z86:26:151.2.840.11 4350.1.72.3.15|1.2.840.877881 .1.13.104.2.7.2.727879_187758 3966 [facility] 2023-04-03 01:42:56 t2fxbhOsW8sVkkqblWGu MbuJ4Idva J5VBDnLYHVWevHiRMZJ+KjqY/Qc85 qGk2cb3493-41-86L43:42:56Form atting of this note might be different [...] achieve maximum mobility levelOutcome: Progressing as expected 42854-2Lqnd of care zozaQE6647-36-33V60:43:00Plan of care noteTXT1.2.840.822348.1.13.10 4.2.7.2.113953|[id number] ailable for patient bgly60270-9WmcwGONKDUZZUJ88 [address]TX[address] [id number] 2565-26-66C59:43:001.2.840.11 4350.1.72.3.15|1.2.840.942393 .1.13.104.2.7.2.727879_187722 4934 [facility] 2023-04-02 09:12:26 /6dEQisI+AkKphfMR+82 mCfjpsUGy HezFkQ+M/ar6SmnXKHm4NXq0UCVTN KVOdPC3321-53-33U55:12:26Form atting of this note might be different [...] achieve maximum mobility levelOutcome: Progressing as expected 51840-7Utux of care fxptZP0856-69-39L29:12:31Plan of care noteTXT1.2.840.908814.1.13.10 4.2.7.2.502314|[id number] ailable for patient sypc82456-3XagzFBVUKKTSEM[address] [id number] 7925-78-97H41:12:311.2.840.11 4350.1.72.3.15|1.2.840.300191 .1.13.104.2.7.2.727879_187660 6420 [facility] 2023-04-02 07:24:04 Ghkb40/dvRrvcqOPc/rI CoHRh/NQ8 2ZOPUTUDE0izc+mSt6NiQLZJHUJHM pemxNS0471-16-20J80:24:04Form atting of this note might be different [...] Nelida Peña RNOutcome: Progressing as expected04/02/2023126 by Neliad Peña RNOutcome: Progressing as expectedGoal: Reduction in [...] by Nelida Peña RNOutcome: Progressing as expected 10716-4Zbsb of care guymXZ8700-29-91Q68:24:09Plan of care noteTXT1.2.840.872780.1.13.10 4.2.7.2.641638|[id number] ailable for patient uard74181-1QfhbANZVNMHKIY88 [address] [id number] 5586-85-28A67:24:091.2.840.11 4350.1.72.3.15|1.2.840.282246 .1.13.104.2.7.2.727879_187644 2732 [facility] 2023-04-02 01:27:27 g08C4bN6gWmmsQFavECY IjMJqNX5I Vtflkq78wlNYJdayx481UdWmwC8O8 YXLvQz5153-13-00M23:27:27Form atting of this note might be different [...] achieve maximum mobility levelOutcome: Progressing as expected 37446-1Gxlt of care sedrYO3802-80-29K61:27:29Plan of care noteTXT1.2.840.547918.1.13.10 4.2.7.2.716259|[id number] ailable for patient hsyb17731-5NfwxRVYMNQBDSX88 [address] [id number] 5697-90-30I86:27:291.2.840.11 4350.1.72.3.15|1.2.840.048429 .1.13.104.2.7.2.727879_187617 [address] [place] [address] 2023-04-01 00:41:11 nOMlPEmKsarbCQF1/RICHI yoz1crwLF bAAx5ZotcDoQcRvjtQ8ffsp7jD1il oTz9jq1692-38-34P37:41:11Form atting of this note might be different [...] achieve maximum mobility levelOutcome: Progressing as expected 91073-9Rwig of care mtuuCH1068-43-84H95:41:14Plan of care noteTXT1.2.840.070620.1.13.10 4.2.7.2.298192|[id number] ailable for patient ubxj72381-2JlabTYPMZHHAUR88 [address]TX[address] [id number]M 2945-74-22G70:41:141.2.840.11 4350.1.72.3.15|1.2.840.599543 .1.13.104.2.7.2.727879_187513 9817 [facility] 2023-03-31 14:20:00 ptRnDjT5vVzkYmMj7PZ3 dRHIELQkz M4jTm40uNTpiuQgXhJNEnSzAt9NR4 [facility]/KA2379-65-36I68:20:00Form atting of this note might be different [...] Duenas MD PhDNeurosurgery ServiceFor inquiries please page [id number] signed by Natalie Ridley MD at 04/06/2023 [...] titanium corpectomy cage. Use of operating microscope. 60152-8Gprmvoh Surgical operation bdsyOQ8855110Ttqc, Rishi1.2.840.824006.1.13.104. 2.7.2.011245QvhlUeulfRZ1777-5 :14:42[facility] Surgical operation noteTXT1.2.840.448007.1.13.10 4.2.7.2.472874|[id number] ailable for patient zgtl13566-1UwytOKGJLKYRHP[address] CqqrWzkvnbqjbMumvmnntyVNAK084 [id number]G 8480-20-91J49:14:421.2.840.11 4350.1.72.3.15|1.2.840.654654 .1.13.104.2.7.2.727879_187816 9193 [facility] 2023-03-31 14:20:00 Yv0ix45XBD84vgYfnfwx 1+NKUwtaE v9yP5p6UPGQE6zif7YqZhVYb0Mdf9 Ko5j1H1085-76-11N86:20:00Form atting of this note might be different [...] Duenas MD PhDNeurosurgery ServiceFor inquiries please page [id number] signed by Aide Duenas MD at 04/03/2023 6:19 PM WRI89772-2Psnxpexx mhwzXE5699-60-91O98:19:28Prog ress noteTXT1.2.840.427378.1.13.10 4.2.7.2.405799|[id number] ailable for patient wttx22225-8PcogJGVZKWYYDY[address] CmdrCrdvagbgmLiggkdbnkGXWE389 [id number] 2249-34-85K89:19:281.2.840.11 4350.1.72.3.15|1.2.840.903916 .1.13.104.2.7.2.727879_187816 4950 [facility] 2023-03-31 02:26:48 tGWHTknRSMtv6Y0klsjF Fv0i7J1hL /skHGWosYgMzCwY1JodOc9ulsn4 GG2oSC7034-69-48Q91:26:48Form atting of this note might be different [...] achieve maximum mobility levelOutcome: Progressing as expected 94802-6Ydcw of care qmbkOD2659-74-15M66:26:50Plan of care noteTXT1.2.840.792861.1.13.10 4.2.7.2.652067|[id number] ailable for patient xfqz57769-1OkrbVRNAVRVFCL[address] [id number] 9627-23-71O95:26:501.2.840.11 4350.1.72.3.15|1.2.840.305903 .1.13.104.2.7.2.727879_187407 6791 [facility] 2023-03-29 15:34:40 5pvQjZ4ZpMafzxOJQc25 YKy8Qu0Fr LmJOII9gdvb+VmXMwMIEwVkHMViu/ tqhZIJ6589-03-29P05:34:40Form atting of this note might be different from the original.Problem: PainGoal: Control of pain at or below patient's documented comfort goalOutcome: Progressing as expectedGoal: Reduction in pain sensationOutcome: Progressing as expected Problem: Falls, Risk ofGoal: Absence of fallsOutcome: Progressing as expected 94239-7Veic of care gkhfTS6910-90-59K28:34:44Plan of care noteTXT1.2.840.118966.1.13.10 4.2.7.2.944815|[id number] ailable for patient xytc81861-6ZiaxOVWGEFOIWA88 [address]TX[address] [id number] 9937-08-91Z95:34:441.2.840.11 4350.1.72.3.15|1.2.840.399077 .1.13.104.2.7.2.727879_187316 2959 [facility] 2023-03-29 03:43:20 gVlS+75+Wq/ptqIRBhVx Henry/Rk7o/Marylou 54wMpsb8bI055cANAt0Bd1CjC4613 fbzDPT8889-91-92L16:43:20Form atting of this note might be different [...] achieve maximum mobility levelOutcome: Progressing as expected 92484-1Fykx of care waakIR8336-39-81M34:43:26Plan of care noteTXT1.2.840.880699.1.13.10 4.2.7.2.630294|[id number] ailable for patient jrmi80763-0UmcwXNNUBZGKJT88 [address] [id number] 6393-59-48H57:43:261.2.840.11 4350.1.72.3.15|1.2.840.610158 .1.13.104.2.7.2.727879_187301 7664 [facility]
[2023-09-11 01:01] LABS: Absolute Lymphocytes (CBC) 1.3 K/uL (0.7-4.9); Hematocrit 37.7 % (36.0-45.0); Lymphocytes % 23.7 % (15.3-44.8); MCV 87.5 fL (80-100); MPV 7.7 fL (7.6-11.3); Platelets 152 thou/uL (152-406); RBC Red Blood Cell Count 4.31 M/uL (3.86-4.86)
[2023-09-11 01:29] LABS: Albumin 4.1 g/dL (3.4-5.0); Bilirubin Total 0.4 mg/dL (0.2-1.0); Potassium 3.4 mEq/L (3.5-5.1)
[2023-09-11] MEDS ORDERED: D50W 25 GM/50 ML SYRINGE IV ONE (01:32)
[2023-09-11] MEDS ORDERED: D10W 250 ML IV ONE (01:33)
--- NOTE | 2023-09-11 02:31 | ER ---
Nurse's Notes [facility] Name: Madeline Parks Age: 78 yrs Sex: Female : 1945 Arrival Date: 09/10/2023 Time: 22:07 Bed 18 Private MD: Diagnosis: Weakness;Repeated falls;Hypoglycemia, unspecified Presentation: 09/10 22:34 Chief complaint: Patient states: a/p fall after getting up from recliner w/ walker. la4 States walker slipped away from her. States she fell on her bottom but did hit her head on wall. Denies LOC and no head injury noted. Care prior to arrival: Medication(s) given: Glucagon. Mechanism of Injury: Fall from standing position. Trauma event details: Injury occurred in the [facility], Injury occurred: at home. Injury occurred: September 10, 2023 Injury occurred at: 22:00. 22:34 Acuity: SHAW 3 la4 22:34 Method Of Arrival: EMS: [facility] la4 22:43 Coronavirus screen: Vaccine status: Patient reports being unvaccinated. Ebola Screen: la4 Patient negative for fever greater than or equal to 101.5 degrees Fahrenheit, and additional compatible Ebola Virus Disease symptoms Patient denies exposure to infectious person. Patient denies travel to an Ebola-affected area in the 21 days before illness onset. No symptoms or risks identified at this time. Initial Sepsis Screen: Does the patient meet any 2 criteria? No. Patient's initial sepsis screen is negative. Does the patient have a suspected source of infection? No. Patient's initial sepsis screen is negative. Risk Assessment: Do you want to hurt yourself or someone else? Patient reports no desire to harm self or others. Onset of symptoms was September 10, 2023. Triage Assessment: 22:43 General: Appears in no apparent distress. Behavior is calm, cooperative. Neuro: No la4 deficits noted. Gallegos Agitation-Sedation Scale (RASS): 0 - Alert and Calm Level of Consciousness is awake, alert, obeys commands, Oriented to person, place, time, situation, Appropriate for age. Trauma Activation: Physician: ED Physician; Name: ; Notified At: ; Arrived At: Physician: General Surgeon; Name: ; Notified At: ; Arrived At: Physician: Radiology; Name: ; Notified At: ; Arrived At: Physician: Respiratory; Name: ; Notified At: ; Arrived At: Physician: Lab; Name: ; Notified At: ; Arrived At: 22:34 not required la4 Historical: - Allergies: 22:43 No Known Allergies; la4 - PMHx: 22:43 Arthritis; breast cancer (Hypertensive disord); diabetes mellitus; la4 Hypercholesterolemia; Hypertensive disorder; - Immunization history: Last tetanus immunization: - up to date. - Social history:: Smoking status: Patient denies any tobacco usage or history of. Screenin:34 Abuse screen: Denies threats or abuse. Denies injuries from another. Tuberculosis la4 screening: No symptoms or risk factors identified. Fall risk At risk due to age, prior history of falls, Intervention for positive screen: side rails up. 23:31 [facility] ED Fall Risk Assessment (Adult) History of falling in the last 3 months, la4 including since admission No falls in past 3 months (0 pts) Confusion or Disorientation No (0 pts) Intoxicated or Sedated No (0 pts) Impaired Gait No (0 pts) Mobility Assist Device Used No (0 pt) Altered Elimination No (0 pt) Score/Fall Risk Level 0 - 2 = Low Risk Oriented to surroundings, Provided non-skid footwear, Hourly rounding (assess needs \T\ fall precautionary measures) done. Nutritional screening: No deficits noted. Primary Survey: 22:34 NO uncontrolled hemorrhage observed. A: The client is awake and alert. The airway is la4 patent. Breathing/Chest: Spontaneous respiratory effort, equal unlabored respirations, breath sounds clear bilaterally, regular pattern, symmetrical chest rise and fall. Respiratory effort: spontaneous. Circulation: No external hemorrhage present. Regular and strong central pulse, skin warm/dry/normal color. Disability Pupils are equal, round, reactive to light and accommodation. Exposure/Environment: All clothing and personal items were removed. Forensic evidence collection is not deemed to be indicated at this time. Items placed in patient belonging bag. There is no evidence of uncontrolled external bleeding. No obvious injuries are noted at this time. A warming method has been applied: A warm blanket has been provided to the patient. Reassessment Alertness and Airway: Awake and alert. The airway is patent. Breathing: Spontaneous respiratory effort, equal unlabored respirations, breath sounds clear bilaterally, regular pattern with symmetrical chest rise and fall. Circulation: No external hemorrhage noted. Regular and strong central pulse, skin warm/dry/normal color. Disability: Pupils Pupils are equal, round, reactive to light and accomodation. Secondary Survey: 22:42 HEENT: No deficits noted. Gastrointestinal: No deficits noted. : No deficits noted. la4 Musculoskeletal: No deficits noted. Assessment: 22:34 General: Appears in no apparent distress. Behavior is calm, cooperative, appropriate la4 for age. Pain: Denies pain. Neuro: No deficits noted. Gallegos Agitation-Sedation Scale (RASS): 0 - Alert and Calm Level of Consciousness is awake, alert, obeys commands, Oriented to person, place, time, situation, Meat Cooler are equal bilaterally Moves all extremities. Gait is steady, ambulates with walker. Cardiovascular: No deficits noted. Heart tones S1 S2 Capillary refill < 3 seconds is brisk Pulses are all present. Edema is absent. Rhythm is sinus rhythm. Respiratory: No deficits noted. Airway is patent Trachea midline Respiratory effort is even, unlabored, Respiratory pattern is regular, symmetrical, Breath sounds are clear bilaterally. GI: No deficits noted. No signs and/or symptoms were reported involving the gastrointestinal system. Bowel sounds present X 4 quads. Abd is soft and non tender X 4 quads. : No deficits noted. Derm: No deficits noted. Musculoskeletal: No deficits noted. 23:31 Reassessment: No changes from previously documented assessment. Patient and/or family la4 updated on plan of care and expected duration. Pain level reassessed. Patient states symptoms have improved. Vital Signs: 22:34 BP 152 / 76; Pulse 77; Resp 16; Temp 98.6; Pulse Ox 100% on R/A; Pain 0/10; la4 09/11 02:00 BP 177 / 73; Pulse 79; Resp 18; Pulse Ox 100% ; la4 03:00 BP 140 / 78; Pulse 80; Resp 18; Pulse Ox 100% ; la4 04:00 BP 147 / 70; Pulse 79; Resp 18; Pulse Ox 96% ; la4 09/10 22:34 Pain Scale: Adult la4 [place] Coma Score: 09/10 22:34 Eye Response: spontaneous(4). Motor Response: obeys commands(6). Verbal Response: la4 oriented(5). Total: 15. Trauma Score (Adult): 22:34 Eye Response: spontaneous(1); Verbal Response: oriented(1); Motor Response: obeys la4 commands(2); Systolic BP: > 89 mm Hg(4); Respiratory Rate: 10 to 29 per min(4); Nathlay Score: 15; Trauma Score: 12 ED Course: 22:09 Patient arrived in ED. jj6 22:09 Yocasta Davis RN is Primary Nurse. la4 22:13 Darryn Barrios MD is Attending Physician. kdr 22:34 Patient has correct armband on for positive identification. Placed in gown. Bed in low la4 position. Call light in reach. Side rails up X2. 22:38 Triage completed. la4 22:42 Patient maintains SpO2 saturation greater than 95% on room air. la4 22:43 Arm band placed on right wrist. Patient placed in an exam room, on a stretcher, on la4 environmental monitoring specialist, on pulse oximetry. Labs ordered per protocol. Drawn by ED staff. accucheck 52. 23:31 Provided Education on: plan of care. la4 23:31 No provider procedures requiring assistance completed. Inserted saline lock: 20 gauge la4 in right antecubital area, using aseptic technique. 23:31 Inserted saline lock: 22 gauge in right hand, using aseptic technique. la4 23:31 Thermoregulation: warm blanket given to patient. la4 09/11 00:07 CT Traumagram (Head C Spine CAP wo con) In Process Unspecified. EDMS 02:29 Bernarda Fuentes MD is Hospitalizing Provider. kdr 03:01 Abdomen 1 View (KUB) In Process Unspecified. EDMS 05:26 Patient admitted, IV remains in place. intact, No redness/swelling at site. la4 Administered Medications: 02:02 Drug: D10 in Water IVP 250 ml IVP once Route: IVP; Site: left forearm; la4 Medication: 09/10 23:31 VIS not applicable for this client. la4 Intake: 09/11 05:07 X2 FULL DIAPERS WHILE IN ER la4 Outcome: 02:30 Decision to Hospitalize by Provider. kdr 05:06 Admitted to Med/surg room 220, with chart, Report called to JOHN CARROLL la4 05:06 Condition: improved 05:06 Instructed on the need for admit, Demonstrated understanding of NEED FOR ADMISSION 05:08 Patient's length of stay was not longer than 2 hours. Patient's length of stay in the la4 Emergency Department was greater than 2 hours. DISPOSITION AND ROOM ASSIGNMENTPatient's length of stay extended due to 06:03 Patient left the ED. jb4 Signatures: Dispatcher [employer] EDMS Darryn Barrios MD MD kdr Bryson, James RN RN jb4 Rachelle Olivarez La'Rea RN RN la4
--- NOTE | 2023-09-11 02:31 | EDPHYS ---
Physician Documentation [facility] Name: Madeline Parks Age: 78 yrs Sex: Female : 1945 Arrival Date: 09/10/2023 Time: 22:07 Bed 18 Private MD: ED Physician Darryn Barrios HPI: 09/10 23:19 This 78 yrs old Female presents to ER via EMS with complaints of Fall Injury. kdr 23:19 While the patient was triaged for a fall. She did not mention any aspect of that in my kdr interview with her. Rather she focused on just not feeling well. She is aware that she had been seen here earlier in the week and that she had similar symptoms at that time. She understood that she had been discharged without any significant finding being revealed. Patient reported to the nursing staff that she had fallen and hit her head as well as her bottom. She denied LOC at that time. The patient had no focal complaints on my exam and otherwise was in her apparent usual state of health. Patient was not in any acute distress not requiring emergent intervention on arrival. Onset: The symptoms/episode began/occurred at an unknown time. Severity of symptoms: At their worst the symptoms were mild in the emergency department the symptoms are unchanged. It is unknown whether or not the patient has had similar symptoms in the past. The patient has been recently seen by a physician: The patient has been recently seen at the [facility] Emergency Department, this week. Historical: - Allergies: 22:43 No Known Allergies; la4 - PMHx: 22:43 Arthritis; breast cancer (Hypertensive disord); diabetes mellitus; la4 Hypercholesterolemia; Hypertensive disorder; - Immunization history: Last tetanus immunization: - up to date. - Social history:: Smoking status: Patient denies any tobacco usage or history of. ROS: 23:19 Constitutional: Negative for fever, chills, and weight loss, Eyes: Negative for injury, kdr pain, redness, and discharge, Neck: Negative for injury, pain, and swelling, Cardiovascular: Negative for chest pain, palpitations, and edema, Respiratory: Negative for shortness of breath, cough, wheezing, and pleuritic chest pain, Back: Negative for injury and pain, MS/Extremity: Negative for injury and deformity, Skin: Negative for injury, rash, and discoloration, Neuro: Negative for headache, weakness, numbness, tingling, and seizure activity. Allergy/Immunology: Negative for hives, rash, and allergies, Endocrine: Negative for neck swelling, polydipsia, polyuria, polyphagia, and marked weight changes, Hematologic/Lymphatic: Negative for swollen nodes, abnormal bleeding, and unusual bruising, 23:19 Abdomen/GI: Negative for abdominal pain, nausea, vomiting, diarrhea, and constipation, 23:19 Abdomen/GI: Exam: 23:19 Constitutional: This is a well developed, well nourished patient who is awake, alert, kdr and in no acute distress. Head/Face: Normocephalic, atraumatic. Eyes: Pupils equal round and reactive to light, extra-ocular motions intact. Lids and lashes normal. Conjunctiva and sclera are non-icteric and not injected. Cornea within normal limits. Periorbital areas with no swelling, redness, or edema. Neck: Trachea midline, no thyromegaly or masses palpated, and no cervical lymphadenopathy. Supple, full range of motion without nuchal rigidity, or vertebral point tenderness. No Meningismus. Chest/axilla: Normal chest wall appearance and motion. Nontender with no deformity. No lesions are appreciated. 23:19 Abdomen/GI: Inspection: obese Bowel sounds: active, Palpation: soft, nontender, in all quadrants, Vital Signs: 22:34 BP 152 / 76; Pulse 77; Resp 16; Temp 98.6; Pulse Ox 100% on R/A; Pain 0/10; la4 09/11 02:00 BP 177 / 73; Pulse 79; Resp 18; Pulse Ox 100% ; la4 03:00 BP 140 / 78; Pulse 80; Resp 18; Pulse Ox 100% ; la4 04:00 BP 147 / 70; Pulse 79; Resp 18; Pulse Ox 96% ; la4 09/10 22:34 Pain Scale: Adult la4 Nathaly Coma Score: 09/10 22:34 Eye Response: spontaneous(4). Motor Response: obeys commands(6). Verbal Response: la4 oriented(5). Total: 15. Trauma Score (Adult): 22:34 Eye Response: spontaneous(1); Verbal Response: oriented(1); Motor Response: obeys la4 commands(2); Systolic BP: > 89 mm Hg(4); Respiratory Rate: 10 to 29 per min(4); Nathaly Score: 15; Trauma Score: 12 MDM: 09/11 02:30 Patient medically screened. [facility] 02:30 Data reviewed: vital signs, nurses notes, lab test result(s), radiologic studies. [facility] 09/10 22:41 Order name: Glucose, Ancillary Testing; Complete Time: 00:15 EDMS 09/10 23:46 Order name: Glucose, Ancillary Testing; Complete Time: 00:15 EDMS 09/11 00:16 Order name: CBC with Diff; Complete Time: 01:14 kdr 09/11 00:16 Order name: CMP; Complete Time: 01:32 kdr 09/11 02:21 Order name: Glucose, Ancillary Testing EDMS 09/11 02:39 Order name: Urinalysis w/ reflexes EDMS 09/11 02:39 Order name: CBC with Automated Diff EDMS 09/11 02:39 Order name: CBC with Automated Diff EDMS 09/11 02:39 Order name: Comprehensive Metabolic Panel EDMS 09/11 02:39 Order name: Comprehensive Metabolic Panel EDMS 09/11 02:39 Order name: Magnesium EDMS 09/11 02:39 Order name: Magnesium EDMS 09/11 03:05 Order name: Hemoglobin A1c EDMS 09/11 03:08 Order name: CBC with Automated Diff EDMS 09/11 03:08 Order name: Magnesium EDMS 09/11 03:08 Order name: Basic Metabolic Panel EDSC 09/11 03:08 Order name: Basic Metabolic Panel EDMS 09/11 03:31 Order name: Glucose, Ancillary Testing EDMS 09/10 22:39 Order name: CT Traumagram (Head C Spine CAP wo con) [facility] 09/11 02:42 Order name: Abdomen 1 View (KUB) EDMS Administered Medications: 02:02 Drug: D10 in Water IVP 250 ml IVP once Route: IVP; Site: left forearm; la4 Disposition Summary: 09/11/23 02:30 Hospitalization Ordered Notes: Hospitalization Status: Observation kdr Provider: Bernarda Fuentes Location: Telemetry/MedSurg (observation) kdr Condition: Fair kdr Problem: new kdr Symptoms: have improved kdr Bed/Room Type: Standard kdr Room Assignment: 220(09/11/23 03:12) kmf Diagnosis - Weakness kdr - Repeated falls kdr - Hypoglycemia, unspecified kdr Forms: - Medication Reconciliation Form kdr - SBAR form kdr - Leadership Thank You Letter kdr Signatures: Dispatcher [employer] EDMS Darryn Barrios MD MD kdr Henrietta Birmingham kmf Yocasta Davis, RN RN la4 Corrections: (The following items were deleted from the chart) 00:21 00:16 Head C Spine Cap Wo Con+CT.RAD.BRZ ordered. EDMS EDMS 03:12 02:30 kdr lazarof
[2023-09-11] MEDS ORDERED: ONDANSETRON 4 MG/2 ML VIAL IV PRN (02:35)
[2023-09-11] MEDS ORDERED: HYDROCORTISONE ACETATE 25MG SUPP PR PRN (02:38)
[2023-09-11] MEDS ORDERED: MAGNESIUM HYDROXIDE 8% 30 ML PO ONE (02:38)
[2023-09-11] MEDS ORDERED: POLYETHYL GLY 3350 17 GM/DOSE PO PRN (02:38)
--- NOTE | 2023-09-11 03:13 | P.HP ---
Certification for Inpatient Patient admitted to: Observation With expected LOS: <2 Midnights Practitioner: I am a practitioner with admitting privileges, knowledge of patient current condition, hospital course, and medical plan of care. Services: Services provided to patient in accordance with Admission requirements found in Title 42 Section 412.3 of the Code of Federal Regulations Patient History Date of Service: 09/11/23 Reason for admission: Hypoglycemia History of Present Illness: 78-year-old female with a history of diabetes mellitus and hypertension was brought to the ED for low blood glucose of 31. Patient was reported to have fallen after getting up from her recliner with her walker, the walker slipped from her she fell on her bottom but did not hit her head. No loss of consciousness. Family called EMS and was found to have low blood glucose. She was given oral glucose and brought to the ED. Her glucose was 51 on arrival and she was given D10 improvement to 147. Patient reports she took Basaglar 50 units at night but had not eaten any dinner. She states in the last couple of days she has not been eating because she had not been feeling well. She has had decreased appetite because of constipation. Her last bowel movement was more than a week ago. She usually has decreased appetite with her constipation and this episode of constipation was precipitated by painful and bleeding hemorrhoids for more than a week despite using Preparation H. Performed blood glucose of 51 other abnormal lab was potassium of 3.4. Vital signs are within normal limits CT C-spine, chest, thoracic and lumbar evaluation was negative. Chest x-ray unremarkable. Allergies No Known Allergies Allergy (Unverified 11/19/22 01:29) Home Medications: Amlodipine [Norvasc] 5 mg PO DAILY 11/19/22 Insulin Glargine,Hum.rec.anlog [Basaglar Tempo Pen U-100] 84 units BEDTIME 11/19/22 Losartan Potassium [Cozaar] 50 mg PO DAILY 11/19/22 Omeprazole 20 mg PO DAILY 11/19/22 Pregabalin [Lyrica] 150 mg PO TID 11/19/22 Sitagliptin Phosphate [Januvia] 50 mg PO DAILY 11/19/22 Tolterodine Tartrate [Tolterodine Tartrate ER] 4 mg PO DAILY 11/19/22 Amoxicillin/Potassium Clav [Augmentin 500-125 Tablet] 1 each PO BID 5 Days #10 tab 11/21/22 - Past Medical/Surgical History Diabetic: Yes -: Hypertension -: Hypercholesterolemia -: Arthritis -: DM Review of Systems 10-point ROS is otherwise unremarkable Physical Examination - Vital Signs Temperature: 98.6 F Blood Pressure: 152/76 Pulse: 77 Respirations: 16 Pulse Ox (%): 100 - Physical Exam General: Alert, In no apparent distress, Oriented x3 HEENT: Atraumatic, Normocephalic, PERRLA, Mucous membr. moist/pink Neck: Supple, JVD not distended Respiratory: Clear to auscultation bilaterally, Normal air movement Cardiovascular: No edema, Regular rate/rhythm, Normal S1 S2 Gastrointestinal: Normal bowel sounds, Soft and benign, Non-distended, No tenderness Musculoskeletal: No swelling, No erythema, No tenderness Integumentary: No rashes Neurological: Normal speech, Normal strength at 5/5 x4 extr - Studies Laboratory Data (last 24 hrs) 09/11/23 09/11/23 00:38 00:38 WBC 5.50 Hgb 13.0 Hct 37.7 Plt Count 152 Sodium 136 Potassium 3.4 L BUN 16 Creatinine 0.77 Glucose 43 L* Total Bilirubin 0.4 AST 13 L ALT 19 Alkaline Phosphatase 57 Assessment and Plan - Plan Hypoglycemia Secondary to insulin use in the setting of decreased oral intake Decreased oral intake from abdominal discomfort/constipation Improved with dextrose fluid Serial glucose monitoring Mental status is normal, resume diet Diabetes mellitus Hypoglycemic episoderesolved Continue blood glucose monitoring and low-dose sliding scale Resume Lantus as clinically appropriate Constipation Laxatives MiraLAX and milk of magnesia Follow-up KUB Hemorrhoids Start Anusol Hypertension Takes amlodipine Hyperlipidemia On atorvastatin - Advance Directives Does patient have a Living Will: No Does patient have a Durable POA for Healthcare: No
[2023-09-11 06:07] VITALS: BMI 30.8
[2023-09-11] MEDS ORDERED: POTASSIUM CL SA 10 MEQ TAB PO ONE (07:00)
[2023-09-11 07:18] LABS: Absolute Lymphocytes (CBC) 1.4 K/uL (0.7-4.9); Hematocrit 37.9 % (36.0-45.0); MCV 87.5 fL (80-100); MPV 7.1 fL (7.6-11.3); Platelets 156 thou/uL (152-406); RBC Red Blood Cell Count 4.34 M/uL (3.86-4.86)
[2023-09-11] MEDS ORDERED: INSULIN REGULAR (HUMAN) 100 UNIT/ML SQ SCH (07:30)
[2023-09-11 07:31] LABS: Magnesium 2.2 mg/dL (1.6-2.4); Potassium 3.6 mEq/L (3.5-5.1)
[2023-09-11] MEDS ORDERED: GLUCAGON 1 MG/VIAL IM PRN (07:35)
[2023-09-11] MEDS ORDERED: D50W 25 GM/50 ML SYRINGE IV PRN (07:35)
[2023-09-11] MEDS ORDERED: D10W 125 ML IV PRN (07:47)
[2023-09-11] MEDS: ENOXAPARIN 40 MG/0.4 ML SQ SCH (07:56)
[2023-09-11] MEDS: POLYETHYL GLY 3350 17 GM/DOSE PO SCH (07:57)
[2023-09-11] MEDS: DOCUSATE NA 100 MG CAP PO SCH (07:59)
[2023-09-11] MEDS ORDERED: INFLUENZA VACCINE (for 6+ mo) 0.5 ML DOSE IMVAC ONE (11:00)
[2023-09-11] MEDS: ACETAMINOPHEN 500 MG TAB PO PRN ×2 (11:09→18:38)
[2023-09-11] MEDS ORDERED: FLEET ENEMA ADULT PR PRN (11:17)
[2023-09-11] MEDS: INSULIN REGULAR (HUMAN) 100 UNIT/ML SQ SCH ×3 (11:30→20:39)
--- NOTE | 2023-09-11 16:04 | RAD REPORT ---
EXAM DESCRIPTION: CT - Head C Spine Cap Aure Cabrales - 09/11/2023 6:35 am CLINICAL HISTORY: The patient is 53 years old and is Female; CHEST PAIN TECHNIQUE: Axial computed tomographic angiography images of the chest with intravenous contrast. S agittal and coronal reformatted images were created and reviewed. This CT exam was performed using one or more of the following dose reduction techniques: automated exposure control, adjustment of t he mA and/or kV according to patient size, and/or use of iterative reconstruction technique. MIP reconstructed images were created and reviewed. COMPARISON: No relevant prior studies available. FINDINGS: PULMONARY ARTERIES: There are no obvious filling defects identified within the pulmonary arteries to suggest pulmonary embolism. AORTA: No acute findings. No thoracic aortic aneurysm. LUNGS: Unremarkable. No mass. No consolidation. PLEURAL SPACE: Unremarkable. No significant effusion. No pneumothorax. HEART: Unremarkable. No cardiomegaly. No significant pericardial effusion. No evidence of R V dysfunction. BONES/JOINTS: No acute fracture. No dislocation. SOFT TISSUES: Unremarkable. LYMPH NODES: Unremarkable. No enlarged lymph nodes. LIVER: The liver is enlarged and diffusely fatty. GALLBLADDER AND BILE DUCTS: Surgical clips are present in the right upper quadrant, consistent wi th previous cholecystectomy. IMPRESSION: No evidence of pulmonary embolism. Electronically signed by: Hillary Agustin MD 09/10/2023 11:24 PM DRAFTING ENGINEER Due to temporary technical issues with the PACS/Fluency reporting system, reports are being signed by the in house radiologists without review as a courtesy to insure prompt reporting. The interpreting radiologist is fully responsible for the content of the report.
[2023-09-11] MEDS: PALBOCICLIB 100 MG PO SCH (18:30)
[2023-09-11] MEDS: ANASTROZOLE 1 MG TAB PO SCH (19:00)
--- NOTE | 2023-09-11 19:59 | RAD REPORT ---
EXAM DESCRIPTION: RAD - Abdomen 1 View (KUB) - 09/11/2023 2:59 am CLINICAL HISTORY: Distention TECHNIQUE: Frontal supine view of the abdomen/pelvis. COMPARISON: No relevant prior studies available. FINDINGS: Gastrointestinal tract: Moderate stool in the mid to distal large bowel. Fecal loading i n the rectal vault. No small bowel dilation. Organs: 5.2 cm lobulated calcific density in the left pelvis compatible with uterine fibroid. Bones/joints: Unremarkable. No acute fracture. IMPRESSION: Nonobstructive bowel gas pattern. Moderate stool. Fecal loading in the rectal vault. Electronically signed by: Brittney Lora MD 09/11/2023 03:22 AM T[employer] FARMING SUPERVISOR Due to temporary technical issues with the PACS/Fluency reporting system, reports are being signed by the in house radiologists without review as a courtesy to insure prompt reporting. The interpreting radiologist is fully responsible for the content of the report.
[2023-09-12] MEDS: ACETAMINOPHEN 500 MG TAB PO PRN ×2 (03:18→23:05)
[2023-09-12 03:30] LABS: Absolute Lymphocytes (CBC) 1.6 K/uL (0.7-4.9); Hematocrit 37.7 % (36.0-45.0); Lymphocytes % 25.9 % (15.3-44.8); MCV 87.2 fL (80-100); MPV 7.3 fL (7.6-11.3); Platelets 159 thou/uL (152-406); RBC Red Blood Cell Count 4.33 M/uL (3.86-4.86)
[2023-09-12 03:49] LABS: Albumin 3.5 g/dL (3.4-5.0); Bilirubin Total 0.4 mg/dL (0.2-1.0); Magnesium 2.4 mg/dL (1.6-2.4); Potassium 3.8 mEq/L (3.5-5.1); Protein, Total 7.4 g/dL (6.4-8.2)
[2023-09-12] MEDS: PANTOPRAZOLE 40MG TABLET PO SCH (06:22)
--- NOTE | 2023-09-12 07:08 | P.PN ---
Subjective Date of Service: 09/12/23 Chief Complaint: Hypoglycemia She reports taking her own insulin, difficulty seeing, possible administering incorrect amount of insulin Report constipation, fleets enema ordered - Physical Exam General: Alert, In no apparent distress, Oriented x3 HEENT: Atraumatic, Normocephalic, PERRLA, Mucous membr. moist/pink Neck: Supple, JVD not distended Respiratory: Clear to auscultation bilaterally, Normal air movement Cardiovascular: No edema, Regular rate/rhythm, Normal S1 S2 Gastrointestinal: Normal bowel sounds, Soft and benign, Non-distended, No tenderness Musculoskeletal: No swelling, No erythema, No tenderness Integumentary: No rashes Neurological: Normal speech, Normal strength at 5/5 x4 extr Review of Systems per HPI Physical Examination - Vital Signs Temperature: 97.1 F Blood Pressure: 148/68 Pulse: 77 Respirations: 17 Pulse Ox (%): 96 Assessment And Plan - Plan - Plan Hypoglycemia Secondary to insulin use in the setting of decreased oral intake Decreased oral intake from abdominal discomfort/constipation Improved with dextrose fluid Serial glucose monitoring Mental status is normal, resume diet Hold insulin Hypoglycemia protocol Fall secondary to hypoglycemia PT eval CT of the head no acute abnormality Diabetes mellitus Hypoglycemic episoderesolved Continue blood glucose monitoring and low-dose sliding scale Resume Lantus as clinically appropriate Lower insulin regimen evaluate Constipation Laxatives MiraLAX and milk of magnesia Follow-up KUB Hemorrhoids Start Anusol Hypertension Takes amlodipine Hyperlipidemia On atorvastatin Full code Diet diabetic DVT SCDs Dispo plan to discharge home with home health Discharge Plan: Home - Code Status/Comfort Care Code Status: Full Code Critical Care: No Time Spent Managing PTS Care (In Minutes): 35
[2023-09-12] MEDS: INSULIN REGULAR (HUMAN) 100 UNIT/ML SQ SCH ×4 (07:30→21:00)
[2023-09-12] MEDS ORDERED: ENOXAPARIN 30 MG/0.3 ML SQ SCH (09:00)
[2023-09-12] MEDS: ANASTROZOLE 1 MG TAB PO SCH (09:00)
[2023-09-12] MEDS: PALBOCICLIB 100 MG PO SCH (09:00)
[2023-09-12] MEDS: DOCUSATE NA 100 MG CAP PO SCH (09:00)
[2023-09-12] MEDS: TOLTERODINE LA 2 MG CAPSULE PO SCH (09:00)
[2023-09-12] MEDS: POLYETHYL GLY 3350 17 GM/DOSE PO SCH (09:00)
[2023-09-12] MEDS: LOSARTAN POTASSIUM 50 MG TABLET PO SCH (11:10)
[2023-09-12] MEDS: ENOXAPARIN 40 MG/0.4 ML SQ SCH (11:10)
[2023-09-12] MEDS: AMLODIPINE 5 MG TAB PO SCH (11:10)
[2023-09-12] MEDS: PREGABALIN 50 MG CAP PO SCH (11:10)
[2023-09-13] MEDS: PANTOPRAZOLE 40MG TABLET PO SCH (06:12)
[2023-09-13] MEDS: INSULIN REGULAR (HUMAN) 100 UNIT/ML SQ SCH ×4 (07:30→21:00)
[2023-09-13] MEDS: DOCUSATE NA 100 MG CAP PO SCH (09:00)
[2023-09-13] MEDS: TOLTERODINE LA 2 MG CAPSULE PO SCH (09:00)
[2023-09-13] MEDS: ANASTROZOLE 1 MG TAB PO SCH (09:00)
[2023-09-13] MEDS: PALBOCICLIB 100 MG PO SCH (09:00)
[2023-09-13] MEDS: POLYETHYL GLY 3350 17 GM/DOSE PO SCH (09:00)
--- NOTE | 2023-09-13 09:33 | P.PN ---
Subjective Date of Service: 09/13/23 Chief Complaint: Hypoglycemia She reports taking her own insulin, difficulty seeing, possible administering incorrect amount of insulin Report constipation, fleets enema ordered - Physical Exam General: Alert, In no apparent distress, Oriented x3 HEENT: Atraumatic, Normocephalic, PERRLA, Mucous membr. moist/pink Neck: Supple, JVD not distended Respiratory: Clear to auscultation bilaterally, Normal air movement Cardiovascular: No edema, Regular rate/rhythm, Normal S1 S2 Gastrointestinal: Normal bowel sounds, Soft and benign, Non-distended, No tenderness Musculoskeletal: No swelling, No erythema, No tenderness Integumentary: No rashes Neurological: Normal speech, Normal strength at 5/5 x4 extr Physical Examination - Vital Signs Temperature: 97.1 F Blood Pressure: 109/55 Pulse: 78 Respirations: 16 Pulse Ox (%): 97 Assessment And Plan - Plan - Plan Hypoglycemia Secondary to insulin use in the setting of decreased oral intake Decreased oral intake from abdominal discomfort/constipation Improved with dextrose fluid Serial glucose monitoring Mental status is normal, resume diet Hold insulin Hypoglycemia protocol Fall secondary to hypoglycemia PT eval CT of the head no acute abnormality Diabetes mellitus Hypoglycemic episoderesolved Continue blood glucose monitoring and low-dose sliding scale Resume Lantus as clinically appropriate Lower insulin regimen evaluate Constipation Laxatives MiraLAX and milk of magnesia Follow-up KUB Hemorrhoids Start Anusol Hypertension Takes amlodipine Hyperlipidemia On atorvastatin Full code Diet diabetic DVT SCDs Dispo plan to discharge home with home health
--- NOTE | 2023-09-13 09:40 | P.DS ---
Admission Date: 09/11/23 Discharge Date: 09/13/23 Disposition: ROUTINE DISCHARGE Discharge Condition: GOOD Reason for Admission: Hypoglycemia Brief History of Present Illness: 78-year-old female with a history of diabetes mellitus and hypertension was brought to the ED for low blood glucose of 31. Patient was reported to have fallen after getting up from her recliner with her walker, the walker slipped from her she fell on her bottom but did not hit her head. No loss of consciousness. Family called EMS and was found to have low blood glucose. She was given oral glucose and brought to the ED. Her glucose was 51 on arrival and she was given D10 improvement to 147. Patient reports she took Basaglar 50 units at night but had not eaten any dinner. She states in the last couple of days she has not been eating because she had not been feeling well. She has had decreased appetite because of constipation. Her last bowel movement was more than a week ago. She usually has decreased appetite with her constipation and this episode of constipation was precipitated by painful and bleeding hemorrhoids for more than a week despite using Preparation H. Performed blood glucose of 51 other abnormal lab was potassium of 3.4. Vital signs are within normal limits CT C-spine, chest, thoracic and lumbar evaluation was negative. Chest x-ray unremarkable - Physical Exam General: Alert, In no apparent distress, Oriented x3 HEENT: Atraumatic, Normocephalic, PERRLA, Mucous membr. moist/pink Neck: Supple, JVD not distended Respiratory: Clear to auscultation bilaterally, Normal air movement Cardiovascular: No edema, Regular rate/rhythm, Normal S1 S2 Gastrointestinal: Normal bowel sounds, Soft and benign, Non-distended, No tenderness Musculoskeletal: No swelling, No erythema, No tenderness Integumentary: No rashes Neurological: Normal speech, Normal strength at 5/5 x4 extr Hospital Course: 78year-old female patient presented with hypoglycemia. Was noted to have poor appetite, poor p.o. intake, on daily long-acting and. Was treated with glucose. Condition improved with glucose, increased p.o. intake, holding long-acting insulin. Stable for discharge with follow-up appointment with primary care physician. Physical therapy evaluation, patient lives on second floor apartment uses a rolling walker and motorized scooter at home. Educated on gait from physical therapy. PROBLEM: Hypoglycemia Diabetes on long-acting insulin Fall due to hypoglycemia, unsteady gait Constipation Hold long-acting insulin, continue as needed stool softener at home Continue home medicines as previously prescribed GOAL: Clear understanding of disease process INSTRUCTIONS: Physician Discharge Instructions: -DC IV and DC home -Follow-up with PCP in 1 to 2 weeks -Please call Dr. Fuentes at [phone] if any questions regarding hospital stay -Please call nursing station at [phone] if any nursing or medication questions -Return to the emergency room if symptoms worsen Diet: ADA, low sodium Activity: Fall precautions DME: Date Ordered: Name of Company: [employer] Services Needed: None Date or Referral: IMMUNIZATION Influenza Vaccine Indicated: Influenza Vaccine Given: Date Given: Pneumonia Vaccine Indicated: Pneumonia Vaccine Given: Date Given: Vital Signs/Physical Exam: Temp Pulse Resp BP Pulse Ox 97.1 F 78 16 109/55 L 97 09/13/23 09:33 09/13/23 09:33 09/13/23 09:33 09/13/23 09:33 09/13/23 09:33 Laboratory Data at Discharge: WBC 6.10 thou/uL (4.3-10.9) 09/12/23 03:04 Hgb 13.1 g/dL (12.0-15.0) 09/12/23 03:04 Hct 37.7 % (36.0-45.0) 09/12/23 03:04 Plt Count 159 thou/uL (152-406) 09/12/23 03:04 Sodium 136 mEq/L (136-145) 09/12/23 03:04 Potassium 3.8 mEq/L (3.5-5.1) 09/12/23 03:04 BUN 12 mg/dL (7-18) 09/12/23 03:04 Creatinine 0.73 mg/dL (0.55-1.02) 09/12/23 03:04 Glucose 105 mg/dL (74-106) 09/12/23 03:04 Magnesium 2.4 mg/dL (1.6-2.4) 09/12/23 03:04 Total Bilirubin 0.4 mg/dL (0.2-1.0) 09/12/23 03:04 AST 12 U/L (15-37) L 09/12/23 03:04 ALT 18 U/L (13-56) 09/12/23 03:04 Alkaline Phosphatase 64 U/L (45-117) 09/12/23 03:04 Home Medications: Amlodipine [Norvasc*] 5 mg PO DAILY 11/19/22 Losartan Potassium [Cozaar*] 50 mg PO DAILY 11/19/22 Omeprazole 20 mg PO DAILY 11/19/22 Pregabalin [Lyrica] 50 mg PO DAILY 11/19/22 Tolterodine Tartrate [Tolterodine Tartrate ER] 2 mg PO DAILY 11/19/22 Anastrozole [Arimidex*] 1 mg PO DAILY 09/11/23 Palbociclib [Ibrance] 100 mg PO DAILY 09/11/23 Physician Discharge Instructions: -DC IV and DC home -Follow-up with PCP in 1 to 2 weeks -Please call Dr. Fuentes at [phone] if any questions regarding hospital stay -Please call nursing station at [phone] if any nursing or medication questions -Return to the emergency room if symptoms worsen -Patient advised to no longer use insulin. If blood sugars are consistently greater than 200 notify her PCP; HgA1c was only 5.2. Diet: ADA Activity: Fall precautions Followup: Danica Carreor FNP [facility] [Primary Care Provider] - Time spent managing pt's care (in minutes): 55
[2023-09-13] MEDS: LOSARTAN POTASSIUM 50 MG TABLET PO SCH (09:57)
[2023-09-13] MEDS: PREGABALIN 50 MG CAP PO SCH (09:57)
[2023-09-13] MEDS: AMLODIPINE 5 MG TAB PO SCH (09:57)
[2023-09-13] MEDS: ENOXAPARIN 40 MG/0.4 ML SQ SCH (09:57)
--- NOTE | 2023-09-13 11:59 | P.PN ---
Subjective Date of Service: 09/13/23 Chief Complaint: Hypoglycemia She reports bowel movement, no reported hypoglycemia, tolerating diet - Physical Exam General: Alert, In no apparent distress, Oriented x3 HEENT: Atraumatic, Normocephalic, PERRLA, Mucous membr. moist/pink Neck: Supple, JVD not distended Respiratory: Clear to auscultation bilaterally, Normal air movement Cardiovascular: No edema, Regular rate/rhythm, Normal S1 S2 Gastrointestinal: Normal bowel sounds, Soft and benign, Non-distended, No tenderness Musculoskeletal: No swelling, No erythema, No tenderness Integumentary: No rashes Neurological: Normal speech, Normal strength at 5/5 x4 extr <Hazel Fagan - Last Filed: 09/13/23 11:57> Date of Service: 09/13/23 <Bernarda Fuentes - Last Filed: 09/13/23 14:16> Review of Systems per HPI <Hazel Fagan - Last Filed: 09/13/23 11:57> Physical Examination - Vital Signs Temperature: 97.1 F Blood Pressure: 109/55 Pulse: 78 Respirations: 16 Pulse Ox (%): 97 <Hazel Fagan - Last Filed: 09/13/23 11:57> Assessment And Plan - Plan - Plan Hypoglycemia Secondary to insulin use in the setting of decreased oral intake Decreased oral intake from abdominal discomfort/constipation Improved with dextrose fluid Serial glucose monitoring Mental status is normal, resume diet Hold insulin Hypoglycemia protocol Fall secondary to hypoglycemia PT eval CT of the head no acute abnormality Diabetes mellitus Hypoglycemic episoderesolved Continue blood glucose monitoring and low-dose sliding scale Resume Lantus as clinically appropriate Lower insulin regimen evaluate Constipation Laxatives MiraLAX and milk of magnesia Follow-up KUB Hemorrhoids Start Anusol Hypertension Takes amlodipine Hyperlipidemia On atorvastatin Full code Diet diabetic DVT SCDs Dispo plan to discharge home with home health Discharge Plan: Home - Code Status/Comfort Care Code Status: Full Code Time Spent Managing PTS Care (In Minutes): 35 <Hazel Fagan - Last Filed: 09/13/23 11:57> Date of Service: 09/13/23 <Bernarda Fuentes - Last Filed: 09/13/23 14:16>
[2023-09-13 18:55] LABS: Specific Gravity 1.015 (1.005-1.030); Urine Bacteria <20 /HPF (<20); Urine Bilirubin NEGATIVE (Negative); Urine Blood Negative (Negative); Urine Clarity Extremely Turbid (Clear); Urine Color Light-Yellow (Yellow); Urine Glucose NEGATIVE (Negative); Urine Protein NEGATIVE (Negative); Urine RBC <5 /HPF (None Seen); Urine Urobilinogen Normal (Normal); Urine pH 5.5 (5.0-7.0)
[2023-09-13] MEDS: ACETAMINOPHEN 500 MG TAB PO PRN (20:39)
[2023-09-14] MEDS: PANTOPRAZOLE 40MG TABLET PO SCH (05:47)
[2023-09-14] MEDS: INSULIN REGULAR (HUMAN) 100 UNIT/ML SQ SCH ×4 (07:30→21:00)
[2023-09-14] MEDS: AMLODIPINE 5 MG TAB PO SCH (09:06)
[2023-09-14] MEDS: PREGABALIN 50 MG CAP PO SCH (09:06)
[2023-09-14] MEDS: DOCUSATE NA 100 MG CAP PO SCH (09:06)
[2023-09-14] MEDS: LOSARTAN POTASSIUM 50 MG TABLET PO SCH (09:06)
[2023-09-14] MEDS: ENOXAPARIN 40 MG/0.4 ML SQ SCH (09:07)
[2023-09-14] MEDS: POLYETHYL GLY 3350 17 GM/DOSE PO SCH (09:07)
[2023-09-14] MEDS: TOLTERODINE LA 2 MG CAPSULE PO SCH (09:22)
[2023-09-14] MEDS: ANASTROZOLE 1 MG TAB PO SCH (09:22)
[2023-09-14] MEDS: PALBOCICLIB 100 MG PO SCH (09:26)
--- NOTE | 2023-09-14 15:33 | P.PN ---
Subjective Date of Service: 09/14/23 Chief Complaint: Hypoglycemia Pt is resting comfortably in bed. Pt was not discharged yesterday because she now wants to go to SNF. Waiting on insurance authorization. No other complaints. Review of Systems Unremarkable General: Unremarkable Eyes: Unremarkable ENT: Unremarkable Respiratory: Unremarkable Cardiovascular: Unremarkable Gastrointestinal: Unremarkable Genitourinary: Unremarkable Musculoskeletal: Unremarkable Integumentary: Unremarkable Neurological: Unremarkable Lymphatics: Unremarkable Physical Examination - Vital Signs Temperature: 97.4 F Blood Pressure: 114/60 Pulse: 75 Respirations: 16 Pulse Ox (%): 98 - Physical Exam General: Alert, In no apparent distress, Oriented x3, Obese HEENT: Atraumatic, Normocephalic Neck: Supple, 2+ carotid pulse no bruit Respiratory: Clear to auscultation bilaterally, Normal air movement Cardiovascular: No edema, Normal pulses, Regular rate/rhythm, Normal S1 S2 Capillary refill: <2 Seconds Gastrointestinal: Normal bowel sounds, Soft and benign, Non-distended Musculoskeletal: No clubbing, No swelling Integumentary: No rashes, No breakdown Neurological: Normal speech, Normal strength at 5/5 x4 extr, Normal tone, Sensation intact Lymphatics: No axilla or inguinal lymphadenopathy Assessment And Plan - Plan Hypoglycemia: resolved. glucose is 188. Will continue hypoglycemia protocol. This is due to insulin use in the setting of decreased oral intake Decreased oral intake from abdominal discomfort/constipation Fall secondary to hypoglycemia: Continue PT. CT head is unremarkable. Diabetes mellitus: Continue accuchek, SSI and ADA diet. Constipation: Continue miralax Hemorrhoids: Start Anusol Hypertension: Take amlodipine Hyperlipidemia: atorvastatin Obesity: Pt was advised to lose weight. Code: Full DVT SCDs Dispo: Waiting for insurance authorization for SNF placement
[2023-09-14] MEDS: ACETAMINOPHEN 500 MG TAB PO PRN (22:12)
[2023-09-15] MEDS: PANTOPRAZOLE 40MG TABLET PO SCH (06:07)
[2023-09-15 06:44] LABS: Absolute Lymphocytes (CBC) 1.9 K/uL (0.7-4.9); Hematocrit 35.7 % (36.0-45.0); Lymphocytes % 42.4 % (15.3-44.8); MPV 7.4 fL (7.6-11.3); Platelets 203 thou/uL (152-406); RBC Red Blood Cell Count 4.05 M/uL (3.86-4.86)
[2023-09-15] MEDS: INSULIN REGULAR (HUMAN) 100 UNIT/ML SQ SCH ×4 (07:30→20:27)
[2023-09-15] MEDS: AMLODIPINE 5 MG TAB PO SCH (09:02)
[2023-09-15] MEDS: DOCUSATE NA 100 MG CAP PO SCH (09:02)
[2023-09-15] MEDS: PREGABALIN 50 MG CAP PO SCH (09:02)
[2023-09-15] MEDS: POLYETHYL GLY 3350 17 GM/DOSE PO SCH (09:03)
[2023-09-15] MEDS: ANASTROZOLE 1 MG TAB PO SCH (09:03)
[2023-09-15] MEDS: LOSARTAN POTASSIUM 50 MG TABLET PO SCH (09:03)
[2023-09-15] MEDS: ENOXAPARIN 40 MG/0.4 ML SQ SCH (09:03)
[2023-09-15] MEDS: PALBOCICLIB 100 MG PO SCH (09:04)
[2023-09-15] MEDS: HYDROCORTISONE 2.5% RECT CR PR PRN (09:04)
[2023-09-15] MEDS: TOLTERODINE LA 2 MG CAPSULE PO SCH (09:05)
[2023-09-15 09:55] LABS: Anisocytosis SLIGHT; Blood Morphology Comment NOTED (NOT SEEN); Platelet Estimate ADEQ; White Blood Cell Scan OK (OK)
--- NOTE | 2023-09-15 11:53 | P.PN ---
Subjective Date of Service: 09/15/23 Chief Complaint: Hypoglycemia Pt is resting comfortably in bed. Pt is waiting for insurance authorization for SNF. No other complaints. Review of Systems Unremarkable General: Unremarkable Eyes: Unremarkable ENT: Unremarkable Respiratory: Unremarkable Cardiovascular: Unremarkable Gastrointestinal: Unremarkable Genitourinary: Unremarkable Musculoskeletal: Unremarkable Integumentary: Unremarkable Neurological: Unremarkable Lymphatics: Unremarkable Physical Examination - Vital Signs Temperature: 97.1 F Blood Pressure: 123/62 Pulse: 72 Respirations: 17 Pulse Ox (%): 93 Assessment And Plan - Plan Hypoglycemia: resolved. Glucose is 144. Will continue hypoglycemia protocol. This is due to insulin use in the setting of decreased oral intake Decreased oral intake from abdominal discomfort/constipation Fall secondary to hypoglycemia: Continue PT. CT head is unremarkable. Diabetes mellitus: Continue accuchek, SSI and ADA diet. Constipation: Continue miralax Hemorrhoids: Start Anusol Hypertension: Take amlodipine Hyperlipidemia: atorvastatin Obesity: Pt was advised to lose weight. Code: Full DVT ppx: SCDs Dispo: Waiting for insurance authorization for SNF placement
[2023-09-15] MEDS: ACETAMINOPHEN 500 MG TAB PO PRN (23:59)
[2023-09-16] MEDS: PANTOPRAZOLE 40MG TABLET PO SCH (06:20)
[2023-09-16] MEDS: INSULIN REGULAR (HUMAN) 100 UNIT/ML SQ SCH ×2 (07:30→12:12)
[2023-09-16] MEDS: ENOXAPARIN 40 MG/0.4 ML SQ SCH (08:51)
[2023-09-16] MEDS: POLYETHYL GLY 3350 17 GM/DOSE PO SCH (08:51)
[2023-09-16] MEDS: LOSARTAN POTASSIUM 50 MG TABLET PO SCH (08:52)
[2023-09-16] MEDS: AMLODIPINE 5 MG TAB PO SCH (08:52)
[2023-09-16] MEDS: ANASTROZOLE 1 MG TAB PO SCH (08:52)
[2023-09-16] MEDS: DOCUSATE NA 100 MG CAP PO SCH (08:52)
[2023-09-16] MEDS: PREGABALIN 50 MG CAP PO SCH (08:52)
[2023-09-16] MEDS: TOLTERODINE LA 2 MG CAPSULE PO SCH (08:53)
[2023-09-16] MEDS: PALBOCICLIB 100 MG PO SCH (08:54)
[2023-09-16] MEDS: HYDROCORTISONE 2.5% RECT CR PR PRN (08:54)
[2023-09-16] MEDS ORDERED: CEFTRIAXONE 1,000 MG in NA CHLORIDE 0.9% 50 ML IVPB SCH (09:00)
[2023-09-16 10:05] VITALS: O2SAT 97
--- NOTE | 2023-09-16 10:53 | P.PN ---
Subjective Date of Service: 09/16/23 Chief Complaint: Hypoglycemia Pt was sleeping when I saw her. Pt is waiting for insurance authorization for SNF. No other complaints. Review of Systems Unremarkable General: Unremarkable Eyes: Unremarkable ENT: Unremarkable Respiratory: Unremarkable Cardiovascular: Unremarkable Gastrointestinal: Unremarkable Genitourinary: Unremarkable Musculoskeletal: Unremarkable Integumentary: Unremarkable Neurological: Unremarkable Lymphatics: Unremarkable Physical Examination - Vital Signs Temperature: 97.3 F Blood Pressure: 115/60 Pulse: 75 Respirations: 18 Pulse Ox (%): 97 - Physical Exam General: Alert, In no apparent distress, Oriented x3 HEENT: Atraumatic, Normocephalic, PERRLA Neck: Supple, 2+ carotid pulse no bruit Respiratory: Clear to auscultation bilaterally, Normal air movement Cardiovascular: No edema, Normal pulses, Regular rate/rhythm, Normal S1 S2 Capillary refill: <2 Seconds Gastrointestinal: Normal bowel sounds, Soft and benign, Non-distended Musculoskeletal: No clubbing, No swelling Integumentary: No rashes, No breakdown Neurological: Normal speech, Normal strength at 5/5 x4 extr, Normal tone, Sensation intact Lymphatics: No axilla or inguinal lymphadenopathy Assessment And Plan - Plan Hypoglycemia: resolved. Glucose improved. Will continue hypoglycemia protocol. This is due to insulin use in the setting of decreased oral intake Decreased oral intake from abdominal discomfort/constipation UTI: Will give rocephin. urine cx is growing E. coli. Fall secondary to hypoglycemia: Continue PT. CT head is unremarkable. Diabetes mellitus: Continue accuchek, SSI and ADA diet. Constipation: Continue miralax Hemorrhoids: Start Anusol Hypertension: Take amlodipine Hyperlipidemia: atorvastatin Obesity: Pt was advised to lose weight. Code: Full DVT ppx: SCDs Dispo: Waiting for insurance authorization for SNF placement
[2023-09-16 12:14] VITALS: BP 135/62; TEMP 97.1
--- NOTE | 2023-09-16 12:29 | P.DS ---
Admission Date: 09/13/23 Discharge Date: 09/16/23 Disposition: TRANSFER TO [facility] Discharge Condition: GOOD Reason for Admission: Hypoglycemia Brief History of Present Illness: 78-year-old female with a history of diabetes mellitus and hypertension was brought to the ED for low blood glucose of 31. Patient was reported to have fallen after getting up from her recliner with her walker, the walker slipped from her she fell on her bottom but did not hit her head. No loss of consciousness. Family called EMS and was found to have low blood glucose. She was given oral glucose and brought to the ED. Her glucose was 51 on arrival and she was given D10 improvement to 147. Patient reports she took Basaglar 50 units at night but had not eaten any dinner. She states in the last couple of days she has not been eating because she had not been feeling well. She has had decreased appetite because of constipation. Her last bowel movement was more than a week ago. She usually has decreased appetite with her constipation and this episode of constipation was precipitated by painful and bleeding hemorrhoids for more than a week despite using Preparation H. Performed blood glucose of 51 other abnormal lab was potassium of 3.4. Vital signs are within normal limits CT C-spine, chest, thoracic and lumbar evaluation was negative. Chest x-ray unremarkable Hospital Course: Pt is a 78yo female with past medical history of history of diabetes mellitus and hypertension who presented with hypoglycemia (blood glucose of 31). Pt reported poor oral intake at home while taking long acting insulin. On admission, the hypoglycemia was corrected with hypoglycemia protocol. Her glucose improved and we advised her to make sure that her food is ready before taking insulin. Her family later decided to place her in a [facility] facility. We continued home med for other chronic medical problems. Pt was in NAD prior to discharge. Vital Signs/Physical Exam: Temp Pulse Resp BP Pulse Ox 97.1 F 76 18 135/62 95 09/16/23 12:00 09/16/23 12:00 09/16/23 12:00 09/16/23 12:00 09/16/23 12:00 Laboratory Data at Discharge: WBC 4.50 thou/uL (4.3-10.9) 09/15/23 05:13 Hgb 12.4 g/dL (12.0-15.0) 09/15/23 05:13 Hct 35.7 % (36.0-45.0) L 09/15/23 05:13 Plt Count 203 thou/uL (152-406) 09/15/23 05:13 Sodium 135 mEq/L (136-145) L 09/15/23 05:13 Potassium 4.0 mEq/L (3.5-5.1) 09/15/23 05:13 BUN 19 mg/dL (7-18) H 09/15/23 05:13 Creatinine 0.84 mg/dL (0.55-1.02) 09/15/23 05:13 Glucose 144 mg/dL (74-106) H 09/15/23 05:13 Magnesium 2.4 mg/dL (1.6-2.4) 09/12/23 03:04 Total Bilirubin 0.4 mg/dL (0.2-1.0) 09/12/23 03:04 AST 12 U/L (15-37) L 09/12/23 03:04 ALT 18 U/L (13-56) 09/12/23 03:04 Alkaline Phosphatase 64 U/L (45-117) 09/12/23 03:04 Home Medications: Amlodipine [Norvasc*] 5 mg PO DAILY 11/19/22 Losartan Potassium [Cozaar*] 50 mg PO DAILY 11/19/22 Omeprazole 20 mg PO DAILY 11/19/22 Pregabalin [Lyrica] 50 mg PO DAILY 11/19/22 Tolterodine Tartrate [Tolterodine Tartrate ER] 2 mg PO DAILY 11/19/22 Anastrozole [Arimidex*] 1 mg PO DAILY 09/11/23 Palbociclib [Ibrance] 100 mg PO DAILY 09/11/23 Physician Discharge Instructions: -DC IV and DC to senior living with SNF -Follow-up with PCP in 1 to 2 weeks -Please call Dr. Fuentes at [phone] if any questions regarding hospital stay -Please call nursing station at [phone] if any nursing or medication questions -Return to the emergency room if symptoms worsen -Patient advised to no longer use insulin. If blood sugars are consistently greater than 200 notify her PCP; HgA1c was only 5.2. Diet: ADA Activity: Fall precautions Followup: Danica Carrero FNP [facility] [Primary Care Provider] -
== END 2023-09-16 13:29 | DRG 639 ==
LOC: ER 22:07 → OBSVTOIN 09-11 02:34 → INTOOBSV 09-11 02:34 → 2ND 09-11 02:34 → OBSVTOIN 09-13 12:56
PROVIDERS: ADMIT Internal Medicine; ATTEND Hospitalist
DX: E11.649 Type 2 diabetes mellitus with hypoglycemia without coma (principal); E78.00 Pure hypercholesterolemia, unspecified; I10 Essential (primary) hypertension; K59.00 Constipation, unspecified; K64.9 Unspecified hemorrhoids; E66.9 Obesity, unspecified; R29.6 Repeated falls; Z79.4 Long term (current) use of insulin; Z85.3 Personal history of malignant neoplasm of breast; Z68.30 Body mass index [BMI] 30.0-30.9, adult; Z91.81 History of falling; Z79.899 Other long term (current) drug therapy; W18.39XA Other fall on same level, initial encounter; Y93.89 Activity, other specified; Y92.019 Unspecified place in single-family (private) house as the place of occurrence of the external cause; Y99.9 Unspecified external cause status
CPT/HCPCS: 36415; 70450; 71250; 72125; 74018; 80048; 80053; 81001; 82947; 83036; 83735; 85025; 87077; 87086; 87088; 87186; 97116; 97161; 97530; 99285; G0378; J0696; J1650; J1815

== ENCOUNTER 2024-07-12 19:12 | Emergency (ER) | payer OTHER ==
--- OUTSIDE RECORDS SUMMARY | 2024-07-12 19:20 | XMS REPORT | Continuity of Care Document ---
Author Name Unknown Address [address] [facility] [address] [place] [address] [facility] Address [address] [facility] [address] [place] [address] Care Team Providers Care Bombsight Specialist Name Role Phone Rodolfo Hassan MD Primary Care Physician [phone] Doctor Unassigned, [place] Attending Clinician U Natalie Quick MD Attending Clinician [phone] Sarah Quintana Attending Clinician [phone] Rodolfo Hassan Attending Clinician [phone] CARROLL, David Mckeon Attending Clinician Unavail able NATALIE RIDLEY Attending Clinician Unavailable Betito Nunes MD Attending Clinician [phone] Anesthesiology Attending Clinician Unavailable RADIOLOGY Attending Clinician Unavailable Radiology Attending Clinician Unavailable BETITO NUNES Admitting Clinician Unavailable Betito Nunes MD Admitting Clinician [phone] Payers Payer Name Policy Type Policy Number Effective Date Expirati on Date Source Problems Condition Name Condition Details Condition Category Status Onset Date Resolution Date Last Treatment Date Treating Clinician Comments Source Urgent desire to urinate Urgent Desire to Urinate Problem Active 2023-08 0 00:00: 00 [facility] Pelvic mass Pelvic Mass Problem Active 2023-08 0- 00:00: 00 [facility] Hyperglyce kori due to type 2 diabetes mellitus Hyperglyce kori Due to Type 2 Diabetes Mellitus Problem Active 2023-08 0-02 00:00: 00 [facility] Malignant tumor of breast Malignant Tumor of Breast Problem Active 2023-08 0-02 00:00: 00 [facility] Metastatic malignant neoplasm to breast Metastatic Malignant Neoplasm to Breast Problem Active 2023-08 0-02 00:00: 00 [facility] Diabetes mellitus Diabetes Mellitus Problem Active 2023-08 0-02 00:00: 00 [facility] Obesity Obesity Problem Active 2023-08 0-02 00:00: 00 [facility] Acute urinary tract infection Acute Urinary Tract Infection Problem Active 2023-08 0-02 00:00: 00 [facility] Arthritis Arthritis Problem Active 2023-08 0-02 00:00: 00 [facility] Metastatic cancer to spine Metastatic cancer to spine Disease Active 04-01 00:00: 00 Overview: Formattin g of this note is different from the original. 3: Intraoper ative Path:Renea l Diagnosis ?A., B. BONE (SPINE), C6 AND C5 BODY TUMOR, CORPECTOM Y: - METASTATI C ADENOCARC INOMA, CONSISTEN T WITH BREAST ORIGIN (SEE COMMENT)? [facility] Type 2 diabetes mellitus without complicati on, with long-term current use of insulin Type 2 diabetes mellitus without complicati on, with long-term current use of insulin Disease Active 03-30 00:00: 00 Overview: Formattin g of this note is different from the original. HGB A1C (%) Date Value 3 5.8 (H) [facility] Primary hypertensi on Primary hypertensi on Disease Active 03-30 00:00: 00 [facility] Gastroesop hageal reflux disease without esophagiti s Gastroesop hageal reflux disease without esophagiti s Disease Recurre nce 03-30 00:00: 00 [facility] Generalize d OA Generalize d OA Disease Recurre nce 03-30 00:00: 00 [facility] Adnexal mass Adnexal mass Disease Active [...] c disease in the abdomen or pelvis. [facility] Obesity (BMI 35.0-39.9 without comorbidit y) Obesity (BMI 35.0-39.9 without comorbidit y) Disease Recurre [facility] 03-30 00:00: 00 [facility] Breast mass, right Breast mass, right Disease Recurre [facility] 03-30 00:00: 00 Overview: Formattin g of this note might be different from the original. 03/29/23P artially imaged suspected asymmetry in the medial right breast.Co nsider mammograp hic evaluatio n. There is an associate d prominent rightaxil audelia node. Several borderlin e right mediastin um and bilateral hilarpred ominant lymph nodes are nonspecif ic [facility] Thyroid nodule greater than or equal to 1.5 cm in diameter incidental ly noted on imaging study Thyroid nodule greater than or equal to 1.5 cm in diameter incidental ly noted on imaging study Disease Active 03-30 00:00: 00 Overview: Formattin g of this note might be different from the original. 03/29/23M ultiple hypoatten uating nodules in the thyroid gland, with a dominantl esion along the posterior right lobe measuring at least 2.7 cm in greatestd iameter [facility] Cervical stenosis of spinal canal Cervical [...] the collapsed C5 vertebral body and the [id number] a, which remains normal in height, is suspiciou s for a pathologi calfractu re in the setting of potential metastati c disease or multiplem yeloma. The current exam was performed without IV contrast. ? [facility] Allergies, Adverse Reactions, Alerts Allergy Name Allergy Type Status Severity Reaction(s) Onset Date Inactive Date Treating Clinician Comments Source NO KNOWN ALLERGIE S Drug Class Active [facility] Social History Social Habit Start Date Stop Date Quantity Comments Source History of tobacco use Cigarette Smoker [facility] History of Social function 2023-04-07 00:00:00 2023-04-07 00:00:00 [facility] Tobacco use and exposure 2023-03-29 00:00:00 2023-03-29 00:00:00 Smokeless tobacco non-user [facility] Sex Assigned At 1945 00:00:00 1945 00:00:00 [facility] Smoking Status Start Date Stop Date Source Former Smoker [facility] Tobacco smoking consumption unknown [facility] Medications Ordered Medication Name Filled Medication Name Start Date Stop Date Current Medication? Ordering Clinician Indication Dosage Frequency Signature (SIG) Comments Components Source acetaminoph en (TYLENOL) tablet 325 mg 04-12 05:00: 00 Yes 325mg 325 mg, Oral, Q6H, First dose (after last modificati on) on Thu04/12/23 at 0000, Until Discontinu ed, Routine [facility] acetaminoph en-codeine (TYLENOL #3) 300-30 mg tablet 1 tablet 04-12 00:09: 13 Yes 1{tbl} 1 tablet, Oral, Q4HPRN, Starting on 04/11/23 at 1909, Until Discontinu ed, Routine, Pain (scale 7-10), Pain (scale 4-6) [facility] sodium phosphates (READY-TO-U SE ENEMA) 19-7 gram/118 mL enema 1 Enema 04-11 00:57: 35 Yes 1{enema } 1 Enema, Rectal, PRN, 1 dose, Starting on 04/10/23 at 1957, Until Discontinu ed, Routine, Constipati on unresolved by oral medication s [facility] bisacodyL (DULCOLAX) suppository 10 mg 04-10 20:24: 34 Yes 10mg 10 mg, Rectal, QDAILYPRN, Starting on Thu04/10/23 at 1524, Until Discontinu ed, Routine, Constipati on unresolved by oral medication s [facility] lactulose (CEPHULAC) solution 30 mL 04-10 01:00: 00 Yes 30mL 30 mL, Oral, BID, First dose (after last modificati on) on Thu04/09/23 at 1999, Until Discontinu ed, Routine [facility] sennosides- docusate sodium (SENOKOT-S) 8.6-50 mg per tablet 1 tablet 04-10 01:00: 00 Yes 1{tbl} 1 tablet, Oral, BID, First dose (after last modificati on) on Thu04/09/23 at 1999, Until Discontinu ed, Routine [facility] polyethylen e glycol 3350 powder 17 g 04-10 01:00: 00 Yes 17g 17 g, Oral, BID, First dose (after last modificati on) on Thu04/09/23 at 1999, Until Discontinu ed, Routine [facility] sulfamethox azole-trime thoprim (BACTRIM DS) 800-160 mg per tablet 1 tablet 04-10 01:00: 00 04-13 00:59 :00 No 1{tbl} 1 tablet, Oral, BID, 6 doses, First dose on Thu04/09/23 at 1999, Last dose on Thu04/12/23 at 0800, LUCIAN
Re ason for Anti-Infec tive: Documented Infection< br>Documen thomas Infection Site: Urine
D uration of Therapy: Other (see Comments) [facility] ketorolac (TORADOL) injection 30 mg 04-09 17:00: 00 04-10 10:59 :00 No 30mg 30 mg, Slow IV Push, Q6H, 3 doses, First dose on Thu04/09/23 at 1200, Last dose on Thu04/10/23 at 0000, Routine [facility] ondansetron (ZOFRAN (PF)) injection 4 mg 04-09 14:30: 28 Yes 4mg 4 mg, Slow IV Push, Q6HPRN, Nausea and Vomiting (N/V), Starting on Thu04/09/23 at 0930
Do ses of ondansetro n 16 mg and above need to be administer ed via IV piggyback. For Dose >=24mg ECG monitoring is advisable.
[facility] morpHINE (2 mg/mL) injection 2 mg 04-09 14:27: 34 Yes 2mg 2 mg, Slow IV Push, Q2HPRN, Starting on Thu04/09/23 at 0927, Until Discontinu ed, Routine, Pain (scale 7-10) [facility] enoxaparin (LOVENOX) injection 40 mg 04-09 14:00: 00 Yes 40mg 40 mg, Subcutaneo us, Q24H, First dose on Thu04/09/23 at 0900, Until Discontinu ed, Routine [facility] docusate (COLACE) 100 mg capsule 04-09 00:00: 00 04-24 04:59 :00 No [id number] 100mg Take 1 capsule by mouth in the morning for 14 days. [facility] methocarbam oL 500 mg tablet 04-09 00:00: 00 04-24 04:59 :00 No [id number] 500mg Take 1 tablet by mouth 4 (four) times daily for 14 days. Indication s: a uncontroll ed muscle contractio n with pain [facility] HYDROcodone -acetaminop hen 5-325 mg tablet 04-09 00:00: 00 04-17 04:59 :00 No [id number] 1{tbl} Take 1 tablet by mouth every 4 (four) hours as needed for Pain (scale 4-6) or Pain (scale 7-10) for up to 7 days. Indication s: acute pain [facility] acetaminoph en (TYLENOL) tablet 650 mg 04-08 23:00: 00 Yes 650mg 650 mg, Oral, Q6H, First dose on Thu04/08/23 at 1800, Until Discontinu ed, Routine [facility] NaCl 0.9% (NS) IV infusion 1,000 mL 04-08 20:45: 00 Yes 1000mL at 42 mL/hr, IV Infusion, CONTINUOUS , Starting on Thu04/08/23 at 1545, Until Discontinu ed, Routine [facility] ceFAZolin (ANCEF) injection 1,000 mg 04-08 20:45: 00 04-10 20:44 :00 No 1000mg 1,000 mg, Intravenou s, Q8H ABX, 6 doses, First dose on Thu04/08/23 at 1545, Last dose on Thu04/10/23 at 0745
Re ason for Anti-Infec tive: Surgical Prophylaxi s
Surgi miracle Prophylaxi s: Neurosurge ry
Dura tion of therapy: within 24 hours of surgery [facility] morpHINE 30 mg/30 mL (fixed dose) INFORMATION WRITER injection 04-08 20:45: 00 04-09 14:28 :56 No Patient Bolus Dose: 1 mg
Lock out Interval: 6 Minutes
Basal Rate: 0 mg/hr
F our Hour Dose Limit: 32 mg
Intr avenous, 30 mL, CONTINUOUS , Starting on Thu04/08/23 at 1545, Until Thu04/09/23 at 0928 [facility] sulfamethox azole-trime thoprim (BACTRIM IV) 400-80 [...] Urine
D uration of Therapy: 7 days [facility] FENTanyl PF (SUBLIMAZE (PF)) injection 25 mcg 04-08 19:45: 58 04-08 21:09 :46 No 25ug 25 mcg, Slow IV Push, Q5MIN PRN, 4 doses, Starting on Thu04/08/23 at 1445, Until Thu04/08/23 at 1609, Routine, Pain (scale 4-6), PACU [facility] HYDROmorpho ne (DILAUDID) injection 0.2 mg 04-08 19:45: 58 04-08 20:15 :00 No .2mg 0.2 mg, Slow IV Push, Q5MIN PRN, 3 doses, Starting on Thu04/08/23 at 1445, Until Thu04/08/23 at 1515, Routine, Pain (scale 7-10), PACU
Us e approved by (Faculty): PACU USE -ANESTHESI A SERVICE-HY DROMORPHON E INJECTIONS [facility] oxyCODONE immediate release tablet 5 mg 04-08 19:45: 00 Yes 5mg 5 mg, Oral, Q4HPRN, Starting on Thu04/08/23 at 1445, Until Discontinu ed, Routine, Pain (scale 4-6)
[facility] Restricted medication : NATALIE RIDLEY [facility] naloxone (NARCAN) injection 0.1 mg 04-08 19:38: 32 Yes .1mg 0.1 mg, Slow IV Push, SEE-INSTRU CTIONS, Starting on Thu04/08/23 at 1438, Until Discontinu ed, Routine [facility] bupivacaine (preserv free) (SENSORCAIN E MPF) 0.25 % (2.5 mg/mL) 30 mL, BUPivacaine liposome (PF) (EXPAREL (PF)) 1.3 % (13.3 mg/mL) 20 mg 04-08 18:11: 00 Yes PRN, Starting on Thu04/08/23 at 1311, Intra-op [facility] vancomycin (VANCOCIN) injection 04-08 15:52: 00 Yes PRN, Starting on Thu04/08/23 at 1052, Until Discontinu ed, LUCIAN, Intra-op [facility] thrombin (recombinan t) (RECOTHROM) topical solution 04-08 15:51: 00 Yes PRN, Starting on Thu04/08/23 at 1051, Until Discontinu ed, Routine, Intra-op [facility] lidocaine-e pinephrine (XYLOCAINE WITH EPINEPHRINE ) 0.5 %-1:200,000 injection 04-08 15:20: 00 Yes PRN, Starting on Thu04/08/23 at 1020, Until Discontinu ed, Routine, Intra-op [facility] sodium phosphates (READY-TO-U SE ENEMA) 19-7 gram/118 mL enema 1 Enema 04-07 18:45: 00 04-07 23:37 :00 No 1{enema } 1 Enema, Rectal, ONCE, 1 dose, On Thu04/07/23 at 1345, Routine [facility] lactulose (CEPHULAC) solution 30 mL 04-06 20:45: 00 04-09 16:47 :56 No 30mL 30 mL, Oral, DAILY, First dose on Thu04/06/23 at 1545, Until Discontinu ed, Routine [facility] polyethylen e glycol 3350 powder 17 g 04-03 18:45: 00 Yes 17g 17 g, Oral, DAILY, First dose on Thu04/03/23 at 1345, Until Discontinu ed, Routine [facility] magnesium hydroxide (MILK OF MAGNESIA) 400 mg/5 mL suspension 30 mL 04-03 18:45: 00 Yes 30mL 30 mL, Oral, DAILY, First dose on Thu04/03/23 at 1345, Until Discontinu ed, Routine [facility] HYDROcodone -acetaminop hen (NORCO 5) 5-325 mg tablet 1 tablet 04-03 16:45: 00 04-03 16:53 :00 No 1{tbl} 1 tablet, Oral, ONCE, 1 dose, On Thu04/03/23 at 1145, Routine, PACU [facility] gadoteridol (PROHANCE-2 0 mL) injection 18.06 mL 04-03 16:00: 00 04-03 16:03 :00 No [id number] .2mL/kg 18.06 mL (0.2 mL/kg ?90.3 kg), Intravenou s, ONCE, 1 dose, On Thu04/03/23 at 1100, Routine [facility] sennosides- docusate sodium (SENOKOT-S) 8.6-50 mg per tablet 1 tablet 04-03 14:00: 00 Yes 1{tbl} 1 tablet, Oral, DAILY, First dose on Thu04/03/23 at 0900, Until Discontinu ed, Routine [facility] ceFAZolin (ANCEF) 1,000 mg in NaCl 0.9% (NS) 100 mL MINI-BAG 04-02 20:15: 00 04-02 21:42 :00 No 1000mg 1,000 mg, Intravenou s, Q8H ABX, 1 dose, First dose on Thu04/02/23 at 1515, Administer over 30 Minutes, 100 mL
Reas on for Anti-Infec tive: Surgical Prophylaxi s
Surgi miracle Prophylaxi s: Neurosurge ry
Dura tion of therapy: within 24 hours of surgery [facility] enoxaparin (LOVENOX) injection 40 mg 04-02 01:00: 00 Yes 40mg 40 mg, Subcutaneo us, Q24H, First dose on Thu04/01/23 at 2000, Until Discontinu ed, Routine [facility] acetaminoph en ADULT (OFIRMEV) injection 1,000 mg 04-01 11:00: 00 04-01 18:34 :00 No 1000mg 1,000 mg, IV Infusion, at 400 mL/hr Administer over 15 Minutes, Q8H, 2 doses, First dose (after last modificati on) on Thu04/01/23 at 0600, Last dose on Thu04/01/23 at 1400, Routine
Indicatio n: Non-periop erative Patient
Approved by: Per Policy (NPO Status) [facility] dexamethaso ne (DECADRON PHOSPHATE) injection 4 mg 03-31 23:00: 00 04-01 18:15 :00 No 4mg 4 mg, Intravenou s, Q6H, 4 doses, First dose on Thu03/31/23 at 1800, Last dose on Thu04/01/23 at 1200, 1 mL [facility] acetaminoph en ADULT (OFIRMEV) injection 1,000 mg 03-31 23:00: 00 04-01 05:46 :34 No 1000mg 1,000 mg, IV Infusion, at 400 mL/hr Administer over 15 Minutes, Q6H, 4 doses, First dose on Thu03/31/23 at 1800, Last dose on Thu04/01/23 at 1200, Routine
Indicatio n: Non-periop erative Patient
Approved by: Per Policy (NPO Status) [facility] HYDROcodone -acetaminop hen (NORCO 5) 5-325 mg tablet 1 tablet 03-31 22:30: 00 03-31 22:38 :00 No 1{tbl} 1 tablet, Oral, ONCE, 1 dose, On Thu03/31/23 at 1730, Routine, PACU [facility] morpHINE (2 mg/mL) injection 2 mg 03-31 22:15: 00 04-09 14:29 :59 No 2mg 2 mg, Slow IV Push, Q3HPRN, Starting on Thu03/31/23 at 1715, Until Thu04/09/23 at 0929, Routine, Pain (scale 7-10) [facility] oxyCODONE immediate release tablet 5 mg 03-31 22:10: 32 04-08 19:39 :53 No 5mg 5 mg, Oral, Q6HPRN, Starting on Thu03/31/23 at 1710, Until Thu04/08/23 at 1439, Routine, Pain (scale 4-6)
Fa culty member approving Restricted medication : NATALIE RIDLEY [facility] phenoL (SORE THROAT (PHENOL)) 1.4 % spray bottle 1 [place] 03-31 22:05: 55 Yes 1{spray } 1 [place], Oral, PRN, Starting on Thu03/31/23 at 1705, Until Discontinu ed, Routine, Sore throat [facility] vancomycin (VANCOCIN) 1 g in sodium chloride 0.9 % irrigation 03-31 21:19: 00 Yes PRN, Starting on Thu03/31/23 at 1619, Until Discontinu ed, 1,000 mL, Intra-op [facility] lidocaine-e pinephrine (XYLOCAINE WITH EPINEPHRINE ) 0.5 %-1:200,000 injection 03-31 19:19: 00 Yes PRN, Starting on Thu03/31/23 at 1419, Until Discontinu ed, Routine, Intra-op [facility] thrombin (recombinan t) (RECOTHROM) topical solution 03-31 19:15: 00 Yes PRN, Starting on Thu03/31/23 at 1415, Until Discontinu ed, Routine, Intra-op [facility] amLODIPine (NORVASC) tablet 5 mg 03-30 14:00: 00 Yes 5mg 5 mg, Oral, DAILY, First dose on Thu03/30/23 at 0900, Until Discontinu ed, Routine [facility] omeprazole (PRILOSEC) capsule 20 mg 03-30 14:00: 00 Yes 20mg 20 mg, Oral, DAILY, First dose on Thu03/30/23 at 0900, Until Discontinu ed, [facility]ine [facility] tolterodine LA (DETROL LA) 24 hr capsule 2 mg 03-30 14:00: 00 Yes 2mg 2 mg, Oral, DAILY, First dose on Thu03/30/23 at 0900, Until Discontinu ed, Routine [facility] losartan (COZAAR) tablet 50 mg 03-30 14:00: 00 Yes 50mg 50 mg, Oral, DAILY, First dose on Thu03/30/23 at 0900, Until Discontinu ed, Routine [facility] insulin glargine (LANTUS U-100) injection 60 Units 03-30 02:00: 00 Yes 60U 60 Units, Subcutaneo us, QHS, First dose on 03/29/23 at 2100, Until Discontinu ed, Routine [facility] docusate (COLACE) capsule 100 mg 03-29 14:00: 00 Yes 100mg 100 mg, Oral, DAILY, First dose on 03/29/23 at 0900, Until Discontinu ed, Routine [facility] enoxaparin (LOVENOX) injection 40 mg 03-29 14:00: 00 03-30 23:23 :45 No 40mg 40 mg, Subcutaneo us, DAILY, First dose on 03/29/23 at 0900, Until Discontinu ed, Routine [facility] pantoprazol e (PROTONIX) EC tablet 40 mg 03-29 14:00: 00 03-29 21:08 :41 No 40mg 40 mg, Oral, DAILY, First dose on 03/29/23 at 0900, Until Discontinu ed, Routine [facility] Sliding Scale Insulin - Lispro (HumaLOG) 03-29 13:00: 00 Yes Subcutaneo us, TID MEALS+HS, First dose on 03/29/23 at 0800, Until Discontinu ed, Routine [facility] iopamidol (ISOVUE 370-500 mL) injection 80 mL 03-29 08:57: 00 03-29 09:15 :00 No [id number] 80mL 80 mL, Intravenou s, ONCE, 1 dose, On 03/29/23 at 0415, Routine [facility] cyclobenzap rine (FLEXERIL) tablet 5 mg 03-29 04:30: 00 Yes 5mg 5 mg, Oral, TID, First dose on 03/28/23 at 2330, Until Discontinu ed, Routine [facility] glucagon (GLUCAGEN DIAGNOSTIC KIT) injection 1 mg 03-29 04:21: 15 Yes 1mg 1 mg, Intramuscu lar, PRN, Starting on 03/28/23 at 2321, Until Discontinu ed, LUCIAN, Blood Glucose < or = 70 mg/dL and patient is NPO, unable to swallow or has mental changes. [facility] dextrose 50 % in water (D50W) injection 25 mL 03-29 04:21: 15 Yes 25mL 25 mL, Slow IV Push, PRN, Starting on 03/28/23 at 2321, Until Discontinu ed, LUCIAN, Blood Glucose < or = 70 mg/dL and patient is NPO, unable to swallow or has mental status changes. [facility] labetaloL (NORMODYNE) injection 20 mg 03-29 04:21: 11 Yes 20mg 20 mg, Slow IV Push, Q15MIN PRN, Starting on 03/28/23 at 2321, Until Discontinu ed, Routine, Hyertensio n: BP parameters SBP > 160, HOLD for HR < 70 [facility] hydralAZINE (APRESOLINE ) injection 10 mg 03-29 04:21: 11 Yes 10mg 10 mg, Slow IV Push, Q2HPRN, Starting on 03/28/23 at 2321, Until Discontinu ed, Routine, DBP=>100; SBP=>160 [facility] morpHINE (2 mg/mL) injection 2 mg 03-29 04:21: 04 03-31 22:14 :59 No 2mg 2 mg, Slow IV Push, Q2HPRN, Starting on 03/28/23 at 2321, Until Tu03/31/23 at 1714, Routine, Pain (scale 7-10) [facility] acetaminoph en (TYLENOL) tablet 650 mg 03-29 04:20: 53 03-31 22:14 :59 No 650mg 650 mg, Oral, Q6HPRN, Starting on 03/28/23 at 2320, Until Tu03/31/23 at 1714, Routine, Pain (scale 4-6), Pain (scale 1-3), Temp > 38 C [facility] ondansetron (ZOFRAN (PF)) injection 4 mg 03-29 04:16: 35 Yes 4mg 4 mg, Slow IV Push, Q6HPRN, Starting on 03/28/23 at 2316, Until Discontinu ed, Routine, Nausea and Vomiting (N/V) [facility] polyethylen e glycol 3350 powder 17 g 03-29 04:16: 35 04-03 18:43 :37 No 17g 17 g, Oral, PRN - SEE INSTRUCTIO NS, Starting on 03/28/23 at 2316, Until 04/03/23 at 1343, Routine, Constipati on [facility] acetaminoph en-codeine 300-60 mg tablet 03-18 00:00: 00 04-09 00:00 :00 No [facility] tolterodine LA 2 mg 24 hr capsule 03-12 00:00: 00 Yes [facility] traMADoL 50 mg tablet 03-12 00:00: 00 Yes [facility] meloxicam 7.5 mg tablet 03-12 00:00: 00 Yes [facility] omeprazole 20 mg capsule 02-26 00:00: 00 Yes [facility] amLODIPine 5 mg tablet - 00:00: 00 Yes [facility] BD INSULIN PEN NEEDLE UF 31 gauge x 5/16" Ndle 02-15 00:00: 00 Yes [facility] pregabalin 50 mg capsule 02-09 00:00: 00 Yes [facility] amlodipine 10 mg tablet Take 1 tablet every day by oral route. amlodipine 10 mg tablet Take 1 tablet every day by oral route. No 1 Q1D amlodipine 10 mg tablet Take 1 tablet every day by oral route. [facility] anastrozole 1 mg tablet Take 1 tablet every day by oral route. anastrozole 1 mg tablet Take 1 tablet every day by oral route. No 1 Q1D anastrozol e 1 mg tablet Take 1 tablet every day by oral route. [facility] Basaglar KwikPen U-100 Insulin 100 unit/mL (3 mL) subcutaneou s Inject by subcutaneou s route. Basaglar KwikPen U-100 Insulin 100 unit/mL (3 mL) subcutaneou s Inject by subcutaneou s route. No Bas[facility] KwikPen U-100 Insulin 100 unit/mL (3 mL) subcutaneo us Inject by subcutaneo us route. [facility] cholecalcif jossy (vit D3) 1,250 mcg/3 mL (50,000 unit/3 mL) oral drops Take by oral route. cholecalcif jossy (vit D3) 1,250 mcg/3 mL (50,000 unit/3 mL) oral drops Take by oral route. No cholecalci ferol (vit D3) 1,250 mcg/3 mL (50,000 unit/3 mL) oral drops Take by oral route. [facility] I[facility] 75 mg capsule Take 1 capsule every day by oral route. Ibrance 75 mg capsule Take 1 capsule every day by oral route. No 1capsul e(s) Q1D Ibrance 75 mg capsule Take 1 capsule every day by oral route. [facility] Januvia 50 mg tablet Take 1 tablet every day by oral route. Januvia 50 mg tablet Take 1 tablet every day by oral route. No 1 Q1D Januvia 50 mg tablet Take 1 tablet every day by oral route. [facility] lactulose 20 gram oral packet Take 1 packet every day by oral route. lactulose 20 gram oral packet Take 1 packet every day by oral route. No 1packet (s) Q1D lactulose 20 gram oral packet Take 1 packet every day by oral route. [facility] losartan 50 mg tablet Take 1 tablet every day by oral route. losartan 50 mg tablet Take 1 tablet every day by oral route. No 1 Q1D losartan 50 mg tablet Take 1 tablet every day by oral route. [facility] Lyrica 50 mg capsule Take 1 capsule 3 times a day by oral route. Lyrica 50 mg capsule Take 1 capsule 3 times a day by oral route. No 1capsul e(s) TID Lyrica 50 mg capsule Take 1 capsule 3 times a day by oral route. [facility] Macrobid 100 mg capsule Take 1 capsule twice a day by oral route for 7 days. Macrobid 100 mg capsule Take 1 capsule twice a day by oral route for 7 days. No 1capsul e(s) BID Macrobid 100 mg capsule Take 1 capsule twice a day by oral route for 7 days. [facility] tolterodine 2 mg tablet Take 1 tablet twice a day by oral route. tolterodine 2 mg tablet Take 1 tablet twice a day by oral route. No 1 BID tolterodin e 2 mg tablet Take 1 tablet twice a day by oral route. [facility] Yuvafem 10 mcg vaginal tablet Insert 1 tablet twice a week by vaginal route for 90 days. Yuvafem 10 mcg vaginal tablet Insert 1 tablet twice a week by vaginal route for 90 days. No 1 Q3.5D Yuvafem 10 mcg vaginal tablet Insert 1 tablet twice a week by vaginal route for 90 days. [facility] Vital Signs Vital Name Observation Time Observation Value Comments S ource BP Systolic 2024-06-14 00:00:00 129 mm[Hg] [facility] BP Diastolic 2024-06-14 00:00:00 92 mm[Hg] [facility] BMI (Body Mass Index) 2024-06-14 00:00:00 28.8 kg/m2 [facility] Height 2024-06-14 00:00:00 63 [in_i] [facility] Body Weight 2024-06-14 00:00:00 162.6 [lb_av] [facility] BP Diastolic 2024-06-07 00:00:00 90 mm[Hg] [facility] Body Weight 2024-06-07 00:00:00 162.6 [lb_av] [facility] BP Systolic 2024-06-07 00:00:00 151 mm[Hg] [facility] BMI (Body Mass Index) 2024-06-07 00:00:00 28.8 kg/m2 [facility] Height 2024-06-07 00:00:00 63 [in_i] [facility] Height 2024-05-18 00:00:00 63 [in_i] [facility] BP Diastolic 2024-05-18 00:00:00 68 mm[Hg] [facility] Body Weight 2024-05-18 00:00:00 162.6 [lb_av] [facility] BMI (Body Mass Index) 2024-05-18 00:00:00 28.8 kg/m2 [facility] BP Systolic 2024-05-18 00:00:00 133 mm[Hg] [facility] Systolic blood pressure 2023-04-14 17:00:00 122 mm[Hg] [facility] Diastolic blood pressure 2023-04-14 17:00:00 50 mm[Hg] [facility] Heart rate 2023-04-14 17:00:00 84 /min [facility] Body temperature 2023-04-14 17:00:00 36.61 Katy [facility] Respiratory rate 2023-04-14 17:00:00 20 /min [facility] Oxygen saturation in Arterial blood by Pulse oximetry 2023-04-14 17:00:00 95 /min [facility] Body weight 2023-04-08 09:11:00 89.495 kg [facility] BMI 2023-04-08 09:11:00 34.95 kg/m2 [facility] Body height 2023-03-28 23:12:00 160 cm [facility] Systolic blood pressure 2023-04-08 09:11:00 134 mm[Hg] [facility] Diastolic blood pressure 2023-04-08 09:11:00 75 mm[Hg] [facility] Heart rate 2023-04-08 09:11:00 110 /min [facility] Body temperature 2023-04-08 09:11:00 36.5 Katy [facility] Respiratory rate 2023-04-08 09:11:00 18 /min [facility] Body weight 2023-04-08 09:11:00 89.495 kg [facility] BMI 2023-04-08 09:11:00 34.95 kg/m2 [facility] Oxygen saturation in Arterial blood by Pulse oximetry 2023-04-08 09:11:00 90 /min [facility] Body height 2023-03-28 23:12:00 160 cm [facility] Systolic blood pressure 2023-04-03 12:37:00 137 mm[Hg] [facility] Diastolic blood pressure 2023-04-03 12:37:00 73 mm[Hg] [facility] Heart rate 2023-04-03 12:37:00 74 /min [facility] Body temperature 2023-04-03 12:37:00 36.94 Katy [facility] Oxygen saturation in Arterial blood by Pulse oximetry 2023-04-03 12:37:00 94 /min [facility] Respiratory rate 2023-04-03 09:00:00 17 /min [facility] Body height 2023-03-28 23:12:00 160 cm [facility] Body weight 2023-03-28 23:12:00 90.266 kg [facility] BMI 2023-03-28 23:12:00 35.25 kg/m2 [facility] Systolic blood pressure 2023-03-31 17:30:00 130 mm[Hg] [facility] Diastolic blood pressure 2023-03-31 17:30:00 72 mm[Hg] [facility] Heart rate 2023-03-31 17:30:00 82 /min [facility] Body temperature 2023-03-31 17:30:00 36.5 Katy [facility] Respiratory rate 2023-03-31 17:30:00 20 /min [facility] Oxygen saturation in Arterial blood by Pulse oximetry 2023-03-31 17:30:00 93 /min [facility] Body weight 2023-03-28 23:12:00 90.266 kg [facility] BMI 2023-03-28 23:12:00 35.25 kg/m2 [facility] Body height 2023-03-28 23:12:00 160 cm [facility] Procedures Procedure Date / Time Performed Performing Clinician Source US, kidney 2024-06-14 00:00:00 Jason queen US TRANSVAGINAL 2024-05-19 00:00:00 [facility] - OTHER 2023-06-02 05:01:00 Doctor Zulma stephens, [place] [facility] AUTHORIZATION FOR RELEASE OF PHI 2023-04-22 05:01:00 Doctor Unassigned, [place] [facility] CBC WITH DIFF 2023-04-14 17:07:00 Montana Martinez U [facility] POCT GLUCOSE (AUTOMATED) 2023-04-14 17:02:00 Khai [facility] POCT GLUCOSE (AUTOMATED) 2023-04-14 12:28:00 Khai [facility] POCT GLUCOSE (AUTOMATED) 2023-04-14 01:15:00 Khai [facility] POCT GLUCOSE (AUTOMATED) 2023-04-13 21:59:00 Khai [facility] POCT GLUCOSE (AUTOMATED) 2023-04-13 16:17:00 Khai [facility] POCT GLUCOSE (AUTOMATED) 2023-04-13 12:51:00 Khai [facility] BASIC METABOLIC PANEL (NA, K, CL, CO2, GLUCOSE, BUN, CREATININE, CA) 2023-04-13 09:52:00 Nolan Moreland [facility] CBC WITH DIFF 2023-04-13 09:52:00 Noaln Moreland [facility] POCT GLUCOSE (AUTOMATED) 2023-04-13 00:59:00 Khai [facility] URINALYSIS 2023-04-12 22:53:00 Nolan Moreland [facility] POCT GLUCOSE (AUTOMATED) 2023-04-12 20:49:00 Khai [facility] POCT GLUCOSE (AUTOMATED) 2023-04-12 17:05:00 Khai [facility] CBC WITH DIFF 2023-04-12 15:40:00 Montana Martinez U [facility] XR CHEST 1 VW 2023-04-12 15:36:00 Nolan Moreland [facility] POCT GLUCOSE (AUTOMATED) 2023-04-12 12:48:00 Khai [facility] POCT GLUCOSE (AUTOMATED) 2023-04-12 01:14:00 Khai [facility] POCT GLUCOSE (AUTOMATED) 2023-04-11 21:16:00 Khai [facility] POCT GLUCOSE (AUTOMATED) 2023-04-11 17:15:00 Khai [facility] POCT GLUCOSE (AUTOMATED) 2023-04-11 13:08:00 Khai [facility] BASIC METABOLIC PANEL (NA, K, CL, CO2, GLUCOSE, BUN, CREATININE, CA) 2023-04-11 10:52:00 Nolan Moreland [facility] CBC WITH DIFF 2023-04-11 10:52:00 [facility] POCT GLUCOSE (AUTOMATED) 2023-04-11 01:40:00 Khai [facility] POCT GLUCOSE (AUTOMATED) 2023-04-10 23:33:00 Khai [facility] POCT GLUCOSE (AUTOMATED) 2023-04-10 17:42:00 Khai [facility] POCT GLUCOSE (AUTOMATED) 2023-04-10 14:59:00 Khai [facility] PHOSPHORUS 2023-04-10 11:41:00 Clyde Akers [facility] MAGNESIUM 2023-04-10 11:41:00 Clyde Akers [facility] BASIC METABOLIC PANEL (NA, K, CL, CO2, GLUCOSE, BUN, CREATININE, CA) 2023-04-10 11:41:00 Clyde Akers [facility] CBC WITH DIFF 2023-04-10 11:40:00 Clyde Akers [facility] POCT GLUCOSE (AUTOMATED) 2023-04-10 01:11:00 Khai [facility] POCT GLUCOSE (AUTOMATED) 2023-04-09 20:41:00 Khai [facility] POCT GLUCOSE (AUTOMATED) 2023-04-09 20:41:00 Khai [facility] POCT GLUCOSE (AUTOMATED) 2023-04-09 16:44:00 Khai [facility] POCT GLUCOSE (AUTOMATED) 2023-04-09 16:44:00 Khai [facility] POCT GLUCOSE (AUTOMATED) 2023-04-09 12:56:00 Khai, Natalie [facility] POCT GLUCOSE (AUTOMATED) 2023-04-09 12:56[facility] 2023-04-09 11:45:42 Branden Box [facility] POCT GLUCOSE (AUTOMATED) 2023-04-09 02:01:00 [facility] 2023-04-09 02:01:00 Khai [facility] POCT GLUCOSE (AUTOMATED) 2023-04-08 22:15:00 Khai [facility] POCT GLUCOSE (AUTOMATED) 2023-04-08 22:15:00 Khai [facility] POCT GLUCOSE (AUTOMATED) 2023-04-08 21:17:00 Khai [facility] POCT GLUCOSE (AUTOMATED) 2023-04-08 21:17:00 [facility] 1 VW 2023-04-08 18:12:57 Khai [facility] XR CERVICAL SPINE 1 2023-04-08 18:12:57 Khai [facility] FL TIME OR (NON-REPORTABLE) 2023-04-08 17:00:00 Oswald [facility] [place] TIME OR (NON-REPORTABLE) 2023-04-08 [facility] 2023-04-08 15:22:45 Khai [facility] XR CERVICAL SPINE 1 VW 2023-04-08 15:22:45 [facility] 2023-04-08 14:28:00 Natalie Ridley [facility] URINE CULTURE 2023-04-08 14:28:00 Natalie Ridley [facility] URINALYSIS 2023-04-08 14:28:00 Natalie Ridley [facility] URINE CULTURE 2023-04-08 14:28:00 Natalie Ridley [facility] POSTERIOR CERVICAL FUSION 2023-04-08 13:40:00 Khai [facility] POSTERIOR CERVICAL FUSION 2023-04-08 13:40:00 Khai [facility] POCT GLUCOSE (AUTOMATED) 2023-04-08 12:52:00 Khai [facility] POCT GLUCOSE (AUTOMATED) 2023-04-08 12:52:00 Khai [facility] BASIC METABOLIC PANEL (NA, K, CL, CO2, GLUCOSE, BUN, CREATININE, CA) 2023-04-08 10:31:00 Vikram Villanueva [facility] CBC WITH DIFF 2023-04-08 10:31:00 Josefa Villanueva [facility] PROTHROMBIN TIME / INR 2023-04-08 10:31:00 [facility]YPSY 2023-04-08 10:31:00 [facility] HB ABO GROUPING 2023-04-08 10:31:00 Josefa Villanueva [facility] BASIC METABOLIC PANEL (NA, K, CL, CO2, GLUCOSE, BUN, CREATININE, CA) 2023-04-08 10:31:00 [facility] CBC WITH DIFF 2023-04-08 10:31:00 Josefa Villanueva [facility] PROTHROMBIN TIME / INR 2023-04-08 10:31:00 [facility]YPSY 2023-04-08 10:31:00 [facility] HB ABO GROUPING 2023-04-08 10:31:00 Josefa Villanueva [facility] POCT GLUCOSE (AUTOMATED) 2023-04-08 01:59:00 Khai [facility] POCT GLUCOSE (AUTOMATED) 2023-04-08 01:59:00 Khai [facility] POCT GLUCOSE (AUTOMATED) 2023-04-07 20:54:00 Khai [facility] POCT GLUCOSE (AUTOMATED) 2023-04-07 20:54:00 Khai [facility] POCT GLUCOSE (AUTOMATED) 2023-04-07 16:41:00 Khai [facility] POCT GLUCOSE (AUTOMATED) 2023-04-07 16:41:00 Khai [facility] POCT GLUCOSE (AUTOMATED) 2023-04-07 13:16:00 Khai [facility] POCT GLUCOSE (AUTOMATED) 2023-04-07 13:16:00 Khai [facility] BASIC METABOLIC PANEL (NA, K, CL, CO2, GLUCOSE, BUN, CREATININE, CA) 2023-04-07 08:55:00 Nolan Moreland [facility] CBC WITH DIFF 2023-04-07 08:55:00 Nolan Moreland [facility] BASIC METABOLIC PANEL (NA, K, CL, CO2, GLUCOSE, BUN, CREATININE, CA) 2023-04-07 08:55:00 Nolan Moreland [facility] CBC WITH DIFF 2023-04-07 08:55:00 Nolan Moreland [facility] POCT GLUCOSE (AUTOMATED) 2023-04-07 02:02:00 Khai [facility] POCT GLUCOSE (AUTOMATED) 2023-04-07 02:02:00 Khai [facility] POCT GLUCOSE (AUTOMATED) 2023-04-06 20:49:00 Khai [facility] POCT GLUCOSE (AUTOMATED) 2023-04-06 20:49:00 Khai [facility] POCT GLUCOSE (AUTOMATED) 2023-04-06 16:58:00 Khai [facility] POCT GLUCOSE (AUTOMATED) 2023-04-06 16:58:00 Khai [facility] POCT GLUCOSE (AUTOMATED) 2023-04-06 16:58:00 Khai [facility] POCT GLUCOSE (AUTOMATED) 2023-04-06 12:34:00 Khai [facility] POCT GLUCOSE (AUTOMATED) 2023-04-06 12:34:00 Khai [facility] POCT GLUCOSE (AUTOMATED) 2023-04-06 12:34:00 Khai [facility] POCT GLUCOSE (AUTOMATED) 2023-04-06 00:40:00 Khai [facility] POCT GLUCOSE (AUTOMATED) 2023-04-06 00:40:00 Khai [facility] POCT GLUCOSE (AUTOMATED) 2023-04-06 00:40:00 Khai [facility] POCT GLUCOSE (AUTOMATED) 2023-04-05 21:25:00 Khai [facility] POCT GLUCOSE (AUTOMATED) 2023-04-05 21:25:00 Khai [facility] POCT GLUCOSE (AUTOMATED) 2023-04-05 21:25:00 Khai [facility] POCT GLUCOSE (AUTOMATED) 2023-04-05 17:00:00 Khai [facility] POCT GLUCOSE (AUTOMATED) 2023-04-05 17:00:00 Khai [facility] POCT GLUCOSE (AUTOMATED) 2023-04-05 17:00:00 Khai [facility] POCT GLUCOSE (AUTOMATED) 2023-04-05 13:04:00 Khai [facility] POCT GLUCOSE (AUTOMATED) 2023-04-05 13:04:00 Khai [facility] POCT GLUCOSE (AUTOMATED) 2023-04-05 13:04:00 Khai [facility] POCT GLUCOSE (AUTOMATED) 2023-04-05 00:43:00 Khai [facility] POCT GLUCOSE (AUTOMATED) 2023-04-05 00:43:00 Khai [facility] POCT GLUCOSE (AUTOMATED) 2023-04-05 00:43:00 Khai [facility] POCT GLUCOSE (AUTOMATED) 2023-04-04 22:43:00 Khai [facility] POCT GLUCOSE (AUTOMATED) 2023-04-04 22:43:00 Khai [facility] POCT GLUCOSE (AUTOMATED) 2023-04-04 22:43:00 Khai [facility] POCT GLUCOSE (AUTOMATED) 2023-04-04 17:13:00 Khai [facility] POCT GLUCOSE (AUTOMATED) 2023-04-04 17:13:00 Khai [facility] POCT GLUCOSE (AUTOMATED) 2023-04-04 17:13:00 Khai [facility] POCT GLUCOSE (AUTOMATED) 2023-04-04 13:02:00 Khai [facility] POCT GLUCOSE (AUTOMATED) 2023-04-04 13:02:00 Khai [facility] POCT GLUCOSE (AUTOMATED) 2023-04-04 13:02:00 Khai [facility] POCT GLUCOSE (AUTOMATED) 2023-04-03 20:20:00 Khai [facility] POCT GLUCOSE (AUTOMATED) 2023-04-03 20:20:00 Khia [facility] POCT GLUCOSE (AUTOMATED) 2023-04-03 20:20:00 Khai [facility] MAGNETIC RESONANCE IMAGING UNDER ANESTHESIA 2023-04-03 20:00:00 Anesthesiology [facility] MAGNETIC RESONANCE IMAGING UNDER ANESTHESIA 2023-04-03 20:00:00 Anesthesiology [facility] POCT GLUCOSE (AUTOMATED) 2023-04-03 17:39:00 Khai [facility] POCT GLUCOSE (AUTOMATED) 2023-04-03 17:39:00 Khai [facility] POCT GLUCOSE (AUTOMATED) 2023-04-03 17:39:00 Khai [facility] MR LUMBAR SPINE W WO CONTRAST 2023-04-03 17:09:44 Vikram Villanueva [facility] MR LUMBAR SPINE W WO CONTRAST 2023-04-03 17:09:44 Vikram Villanueva [facility] MR LUMBAR SPINE W WO CONTRAST 2023-04-03 17:09:44 Vikram Villanueva [facility] MR THORACIC SPINE W WO CONTRAST 2023-04-03 17:07:19 Vikram Villanueva [facility] MR THORACIC SPINE W WO CONTRAST 2023-04-03 17:07:19 [facility] MR THORACIC SPINE W WO CONTRAST 2023-04-03 17:07:19 [facility] W WO CONTRAST 2023-04-03 17:00:40 [facility] MR CERVICAL SPINE W WO CONTRAST 2023-04-03 17:00:40 [facility] 2023-04-03 17:00:40 [facility] POCT GLUCOSE (AUTOMATED) 2023-04-03 13:05:00 Khai [facility] POCT GLUCOSE (AUTOMATED) 2023-04-03 13:05:00 Khai [facility] POCT GLUCOSE (AUTOMATED) 2023-04-03 13:05:00 Natalie Ridley [facility] BASIC METABOLIC PANEL (NA, K, CL, CO2, GLUCOSE, BUN, CREATININE, CA) 2023-04-03 09:38:00 Nolan Moreland [facility] CBC WITH DIFF 2023-04-03 09:38:00 Nolan Moreland [facility] BASIC METABOLIC PANEL (NA, K, CL, CO2, GLUCOSE, BUN, CREATININE, CA) 2023-04-03 09:38:00 Nolan Moreland [facility] CBC WITH DIFF 2023-04-03 09:38:00 Nolan Moreland [facility] BASIC METABOLIC PANEL (NA, K, CL, CO2, GLUCOSE, BUN, CREATININE, CA) 2023-04-03 09:38:00 Nolan Moreland [facility] CBC WITH DIFF 2023-04-03 09:38:00 Nolan Moreland [facility] POCT GLUCOSE (AUTOMATED) 2023-04-03 02:57:00 Natalie Ridley [facility] POCT GLUCOSE (AUTOMATED) 2023-04-03 02:57:00 Khai [facility] POCT GLUCOSE (AUTOMATED) 2023-04-03 02:57:00 Khai [facility] POCT GLUCOSE (AUTOMATED) 2023-04-02 21:55:00 Khai [facility] POCT GLUCOSE (AUTOMATED) 2023-04-02 21:55:00 Khai [facility] POCT GLUCOSE (AUTOMATED) 2023-04-02 21:55:00 Khai [facility] POCT GLUCOSE (AUTOMATED) 2023-04-02 17:03:00 Khai [facility] POCT GLUCOSE (AUTOMATED) 2023-04-02 17:03:00 Khai [facility] POCT GLUCOSE (AUTOMATED) 2023-04-02 17:03:00 Khai [facility] POCT GLUCOSE (AUTOMATED) 2023-04-02 12:45:00 Khai [facility] POCT GLUCOSE (AUTOMATED) 2023-04-02 12:45:00 Khai [facility] POCT GLUCOSE (AUTOMATED) 2023-04-02 12:45:00 Khai [facility] POCT GLUCOSE (AUTOMATED) 2023-04-02 02:50:00 Khai [facility] POCT GLUCOSE (AUTOMATED) 2023-04-02 02:50:00 Khai [facility] POCT GLUCOSE (AUTOMATED) 2023-04-02 02:50:00 Khai [facility] POCT GLUCOSE (AUTOMATED) 2023-04-01 21:00:00 Khai [facility] POCT GLUCOSE (AUTOMATED) 2023-04-01 21:00:00 Khai [facility] POCT GLUCOSE (AUTOMATED) 2023-04-01 21:00:00 Khai [facility] POCT GLUCOSE (AUTOMATED) 2023-04-01 17:18:00 Khai [facility] POCT GLUCOSE (AUTOMATED) 2023-04-01 17:18:00 Khai [facility] POCT GLUCOSE (AUTOMATED) 2023-04-01 17:18:00 Khai [facility] POCT GLUCOSE (AUTOMATED) 2023-04-01 17:18:00 hKai [facility] POCT GLUCOSE (AUTOMATED) 2023-04-01 13:52:00 Khai [facility] POCT GLUCOSE (AUTOMATED) 2023-04-01 13:52:00 Khai [facility] POCT GLUCOSE (AUTOMATED) 2023-04-01 13:52:00 Khai [facility] POCT GLUCOSE (AUTOMATED) 2023-04-01 13:52:00 Khai [facility] XR CERVICAL SPINE 2 VW 2023-04-01 12:10:59 [facility] XR CERVICAL SPINE 2 VW 2023-04-01 12:10:59 [facility]W 2023-04-01 12:10:59 [facility] 2 VW 2023-04-01 12:10:59 [facility] BASIC METABOLIC PANEL (NA, K, CL, CO2, GLUCOSE, BUN, CREATININE, CA) 2023-04-01 08:21:00 Vikram Villanueva [facility] CBC WITH DIFF 2023-04-01 08:21:00 Josefa Villanueva [facility] BASIC METABOLIC PANEL (NA, K, CL, CO2, GLUCOSE, BUN, CREATININE, CA) 2023-04-01 08:21:00 Vikram Villanueva [facility] CBC WITH DIFF 2023-04-01 08:21:00 Josefa Villanueva [facility] BASIC METABOLIC PANEL (NA, K, CL, CO2, GLUCOSE, BUN, CREATININE, CA) 2023-04-01 08:21:00 Vikram Villanueva [facility] CBC WITH DIFF 2023-04-01 08:21:00 Josefa Villanueva [facility] BASIC METABOLIC PANEL (NA, K, CL, CO2, GLUCOSE, BUN, CREATININE, CA) 2023-04-01 08:21:00 Vikram Villanueva [facility] CBC WITH DIFF 2023-04-01 08:21:00 Josefa Villanueva [facility] POCT GLUCOSE (AUTOMATED) 2023-04-01 01:25:00 Khai [facility] POCT GLUCOSE (AUTOMATED) 2023-04-01 01:25:00 Khai [facility] POCT GLUCOSE (AUTOMATED) 2023-04-01 01:25:00 Khai [facility] POCT GLUCOSE (AUTOMATED) 2023-04-01 01:25:00 Khai [facility] POCT GLUCOSE (AUTOMATED) 2023-03-31 22:32:00 Khai [facility] POCT GLUCOSE (AUTOMATED) 2023-03-31 22:32:00 Khai [facility] POCT GLUCOSE (AUTOMATED) 2023-03-31 22:32:00 Khai [facility] POCT GLUCOSE (AUTOMATED) 2023-03-31 22:32:00 Khai [facility] XR CERVICAL SPINE 1 VW 2023-03-31 22:00:00 Khai [facility] XR CERVICAL SPINE 1 VW 2023-03-31 22:00:00 Khai [facility] XR CERVICAL SPINE 1 VW 2023-03-31 22:00:00 Khai [facility] XR CERVICAL SPINE 1 VW 2023-03-31 22:00:00 Khai [facility] XR CERVICAL SPINE 1 VW 2023-03-31 21:30:00 [facility] CERVICAL SPINE 1 VW 2023-03-31 21:30:00 Haywo rt, Aide [place] [facility] XR CERVICAL SPINE 1 VW 2023-03-31 21:30:00 Haywo rth, Aide [place] [facility] XR CERVICAL SPINE 1 VW 2023-03-31 21:30:00 Haywo rtharry, Aide [place] [facility] SURGICAL PATHOLOGY EXAM 2023-03-31 20:17:00 Alejandro Ridley pancho [facility] SURGICAL PATHOLOGY EXAM 2023-03-31 20:17[facility]23-03-31 20:17[facility]00 [facility] 2023-03-31 20:17:00 Khai [facility] ABG+COOX+NA+K+GLU+CA2+ 2023-03-31 20:12:00 Khai [facility] ABG+COOX+NA+K+GLU+CA2+ 2023-03-31 20:12:00 Khai [facility] ABG+COOX+NA+K+GLU+CA2+ 2023-03-31 20:12:00 Khai [facility] ABG+COOX+NA+K+GLU+CA2+ 2023-03-31 20:12:00 Khai [facility] XR CERVICAL SPINE 1 2023-03-31 19:42:00 Haywo rth, Aide [facility] XR CERVICAL SPINE 1 VW 2023-03-31 19:42:00 Haywo rth, Aide [facility] XR CERVICAL SPINE 1 VW 2023-03-31 19:42:00 Haywo rth, Aide [facility] XR CERVICAL SPINE 1 VW 2023-03-31 19:42:00 Haywo rth, Aide [facility] XR CERVICAL SPINE 1 VW 2023-03-31 19:30:00 Haywo rth, Aide [facility] XR CERVICAL SPINE 1 VW 2023-03-31 19:30:00 Haywo rth, Aide [facility] XR CERVICAL SPINE 1 VW 2023-03-31 19:30:00 Haywo rth, Aide [facility] XR CERVICAL SPINE 1 VW 2023-03-31 19:30:00 Haywo rth, Aide [facility] XR CERVICAL SPINE 1 VW 2023-03-31 19:15:00 Haywo rth, Aide [facility] [facility] XR CERVICAL SPINE 1 VW 2023-03-31 19:15:00 Haywo rth, Aide Smith [facility] XR CERVICAL SPINE 1 VW 2023-03-31 19:15:00 Haywo rth, Aide Smith [facility] XR CERVICAL SPINE 1 VW 2023-03-31 19:15:00 Haywo rth, Aide Smith [facility] ANTERIOR CORPECTOMY 2023-03-31 18:13:00 Khai, [facility] COR[facility]OM[facility] 2023-03-31 18:13:00 Khai, Natalie [facility] POCT GLUCOSE (AUTOMATED) 2023-03-31 17:28:00 Betito Nunes [facility] POCT GLUCOSE (AUTOMATED) 2023-03-31 17:28:00 Betito Nunes [facility] POCT GLUCOSE (AUTOMATED) 2023-03-31 17:28:00 Betito Nunes [facility] POCT GLUCOSE (AUTOMATED) 2023-03-31 17:28:00 Betito Nunes [facility] POCT GLUCOSE (AUTOMATED) 2023-03-31 13:15:00 Betito Nunes [facility] POCT GLUCOSE (AUTOMATED) 2023-03-31 13:15:00 Betito Nunes [facility] POCT GLUCOSE (AUTOMATED) 2023-03-31 13:15:00 Betito Nunes [facility] POCT GLUCOSE (AUTOMATED) 2023-03-31 13:15:00 Betito Nnues [facility] BASIC METABOLIC PANEL (NA, K, CL, CO2, GLUCOSE, BUN, CREATININE, CA) 2023-03-31 08:30:00 Montana Martinez [facility] CBC WITH DIFF 2023-03-31 08:30:00 Montana Martinez [facility] PROTHROMBIN TIME / INR 2023-03-31 08:30:00 Enrique [facility] ACTIVATED PARTIAL THRMPLAS GYPSY 2023-03-31 08:30:00 Montana Martinez [facility] BASIC METABOLIC PANEL (NA, K, CL, CO2, GLUCOSE, BUN, CREATININE, CA) 2023-03-31 08:30:00 Montana Martinez [facility] CBC WITH DIFF 2023-03-31 08:30:00 Montana Martinez Conrad [facility] PROTHROMBIN TIME / INR 2023-03-31 08:30:00 [facility] THRMPLAS GYPSY 2023-03-31 08:30:00 Enrique [facility] BASIC METABOLIC PANEL (NA, K, CL, CO2, GLUCOSE, BUN, CREATININE, CA) 2023-03-31 08:30:00 [facility]FF 2023-03-31 08:30:00 Montana Martinez Conrad [facility] PROTHROMBIN TIME / INR 2023-03-31 08:30:00 Montana Martinez [facility] ACTIVATED PARTIAL THRMPLAS GYPSY 2023-03-31 08:30:00 Enrique [facility] BASIC METABOLIC PANEL (NA, K, CL, CO2, GLUCOSE, BUN, CREATININE, CA) 2023-03-31 08:30:00 Montana Martinez [facility] CBC WITH DIFF 2023-03-31 08:30:00 Montana Martinez [facility] PROTHROMBIN TIME / INR 2023-03-31 08:30:00 Enrique [facility] ACTIVATED PARTIAL THRMPLAS GYPSY 2023-03-31 08:30:00 Enrique [facility] POCT GLUCOSE (AUTOMATED) 2023-03-31 02:47:00 Betito Nunes [facility] POCT GLUCOSE (AUTOMATED) 2023-03-31 02:47:00 Betito Nunes [facility] POCT GLUCOSE (AUTOMATED) 2023-03-31 02:47:00 Betito Nunes [facility] POCT GLUCOSE (AUTOMATED) 2023-03-31 02:47:00 Betito Nunes [facility] POCT GLUCOSE (AUTOMATED) 2023-03-30 21:36:00 Betito Nunes [facility] POCT GLUCOSE (AUTOMATED) 2023-03-30 21:36:00 Betito Nunes [facility] POCT GLUCOSE (AUTOMATED) 2023-03-30 21:36:00 Betito Nunes [facility] POCT GLUCOSE (AUTOMATED) 2023-03-30 21:36:00 Betito Nunes [facility] POCT GLUCOSE (AUTOMATED) 2023-03-30 17:56:00 Betito Nunes [facility] POCT GLUCOSE (AUTOMATED) 2023-03-30 17:56:00 Betito Nunes [facility] POCT GLUCOSE (AUTOMATED) 2023-03-30 17:56:00 Betito Nunes [facility] POCT GLUCOSE (AUTOMATED) 2023-03-30 17:56:00 Betito Nunes [facility] MR THORACIC SPINE WO CONTRAST 2023-03-30 17:28:00 Enrique [facility] MR THORACIC SPINE WO CONTRAST 2023-03-30 17:28:00 Enrique [facility] MR THORACIC SPINE WO CONTRAST 2023-03-30 17:28:00 Enrique [facility] MR THORACIC SPINE WO CONTRAST 2023-03-30 17:28:00 Enrique [facility] POCT GLUCOSE (AUTOMATED) 2023-03-30 13:02:00 Betito Nunes [facility] POCT GLUCOSE (AUTOMATED) 2023-03-30 13:02:00 Betito Nunes [facility] POCT GLUCOSE (AUTOMATED) 2023-03-30 13:02:00 Betito Nunes [facility] POCT GLUCOSE (AUTOMATED) 2023-03-30 13:02:00 Betito Nunes [facility] BASIC METABOLIC PANEL (NA, K, CL, CO2, GLUCOSE, BUN, CREATININE, CA) 2023-03-30 09:45:00 [facility] 2023-03-30 09:45:00 Kalina [facility] BASIC METABOLIC PANEL (NA, K, CL, CO2, GLUCOSE, BUN, CREATININE, CA) 2023-03-30 09:45:00 [facility]FF 2023-03-30 09:45:00 Kalina [facility] BASIC METABOLIC PANEL (NA, K, CL, CO2, GLUCOSE, BUN, CREATININE, CA) 2023-03-30 09:45:00 Kalina [facility] CBC WITH DIFF 2023-03-30 09:45:00 Kalina [facility] BASIC METABOLIC PANEL (NA, K, CL, CO2, GLUCOSE, BUN, CREATININE, CA) 2023-03-30 09:45:00 Kalina [facility] CBC WITH DIFF 2023-03-30 09:45:00 Kalina [facility] POCT GLUCOSE (AUTOMATED) 2023-03-30 01:11:00 Betito Nunes [facility] POCT GLUCOSE (AUTOMATED) 2023-03-30 01:11:00 Betito Nunes [facility] POCT GLUCOSE (AUTOMATED) 2023-03-30 01:11:00 Betito Nunes [facility] POCT GLUCOSE (AUTOMATED) 2023-03-30 01:11:00 Betito Nunes [facility] POCT GLUCOSE (AUTOMATED) 2023-03-29 22:59:00 Betito Nunes [facility] POCT GLUCOSE (AUTOMATED) 2023-03-29 22:59:00 Betito Nunes [facility] POCT GLUCOSE (AUTOMATED) 2023-03-29 22:59:00 Betito Nunes [facility] POCT GLUCOSE (AUTOMATED) 2023-03-29 22:59:00 Betito Nunes [facility] MR CERVICAL SPINE WO CONTRAST 2023-03-29 21:19:29 MorelandNolan condon [facility] MR CERVICAL SPINE WO CONTRAST 2023-03-29 21:19:29 Nolan Moreland [facility] MR CERVICAL SPINE WO CONTRAST 2023-03-29 21:19:29 Nolan Moreland [facility] MR CERVICAL SPINE WO CONTRAST 2023-03-29 21:19:29 Nolan Moreland [facility] POCT GLUCOSE (AUTOMATED) 2023-03-29 17:46:00 Betito Nunes [facility] POCT GLUCOSE (AUTOMATED) 2023-03-29 17:46:00 Betito Nunes [facility] POCT GLUCOSE (AUTOMATED) 2023-03-29 17:46:00 Betito Nunes [facility] POCT GLUCOSE (AUTOMATED) 2023-03-29 17:46:00 Betito Nunes [facility] POCT GLUCOSE (AUTOMATED) 2023-03-29 15:51:00 Betito Nunes [facility] POCT GLUCOSE (AUTOMATED) 2023-03-29 15:51:00 Betito Nunes [facility] POCT GLUCOSE (AUTOMATED) 2023-03-29 15:51:00 Betito Nunes [facility] POCT GLUCOSE (AUTOMATED) 2023-03-29 15:51:00 Betito Nunes [facility] POCT GLUCOSE (AUTOMATED) 2023-03-29 13:16:00 Betito Nunes [facility] POCT GLUCOSE (AUTOMATED) 2023-03-29 13:16:00 Betito Nunes [facility] POCT GLUCOSE (AUTOMATED) 2023-03-29 13:16:00 Betito Nunes [facility] POCT GLUCOSE (AUTOMATED) 2023-03-29 13:16:00 Betito Nunes [facility] TROPONIN I 2023-03-29 11:20:00 Dipti Gilman [facility] BASIC METABOLIC PANEL (NA, K, CL, CO2, GLUCOSE, BUN, CREATININE, CA) 2023-03-29 11:20:00 Nolan Moreland [facility] N-TERMINAL PRO-BNP 2023-03-29 11:20:00 Dipti Gilman [facility] TROPONIN I 2023-03-29 11:20:00 Dipti Gilman [facility] BASIC METABOLIC PANEL (NA, K, CL, CO2, GLUCOSE, BUN, CREATININE, CA) 2023-03-29 11:20:00 Nolan Moreland [facility] N-TERMINAL PRO-BNP 2023-03-29 11:20:00 Dipti Gilman [facility] TROPONIN I 2023-03-29 11:20:00 Dipti Gilman [facility] BASIC METABOLIC PANEL (NA, K, CL, CO2, GLUCOSE, BUN, CREATININE, CA) 2023-03-29 11:20:00 Nolan Moreland [facility] N-TERMINAL PRO-BNP 2023-03-29 11:20:00 Dipti Gilman [facility] TROPONIN I 2023-03-29 11:20:00 Dipti Gilman [facility] BASIC METABOLIC PANEL (NA, K, CL, CO2, GLUCOSE, BUN, CREATININE, CA) 2023-03-29 11:20:00 Nolan Moreland [facility] N-TERMINAL PRO-BNP 2023-03-29 11:20:00 Dipti Gilman U [facility] CT ABDOMEN PELVIS W CONTRAST 2023-03-29 09:00:00 Nolan Moreland [facility] CT CERVICAL SPINE WO CONTRAST 2023-03-29 09:00:00 Nolan Moreland [facility] CT THORAX W CONTRAST 2023-03-29 09:00:00 Nolan Linton [facility] CT ABDOMEN PELVIS W CONTRAST 2023-03-29 09:00:00 Nolan Moreland [facility] CT CERVICAL SPINE WO CONTRAST 2023-03-29 09:00:00 Nolan Moreland [facility] CT THORAX W CONTRAST 2023-03-29 09:00:00 Kaushik eal, Nolan Shaw [facility] CT ABDOMEN PELVIS W CONTRAST 2023-03-29 09:00:00 Nolan Moreland [facility] CT CERVICAL SPINE WO CONTRAST 2023-03-29 09:00:00 Nolan Moreland [facility] CT THORAX W CONTRAST 2023-03-29 09:00:00 Kaushik garrison, Nolan Shaw [facility] CT ABDOMEN PELVIS W CONTRAST 2023-03-29 09:00:00 Aniceto [facility] CT CERVICAL SPINE WO CONTRAST 2023-03-29 09:00:00 Nolan Moreland [facility] CT THORAX W CONTRAST 2023-03-29 09:00:00 Nolan Linton [facility] ABORH CONFIRMATION (LAB ONLY) 2023-03-29 05:32:00 Betito Nunes [facility] ABORH CONFIRMATION (LAB ONLY) 2023-03-29 05:32:00 Betito Nunes [facility] ABORH CONFIRMATION (LAB ONLY) 2023-03-29 05:32:00 Betito Nunes [facility] ABORH CONFIRMATION (LAB ONLY) 2023-03-29 05:32:00 Betito Nunes [facility] C-REACTIVE PROTEIN 2023-03-29 05:09:00 Nolan Keita [facility] BASIC METABOLIC PANEL (NA, K, CL, CO2, GLUCOSE, BUN, CREATININE, CA) 2023-03-29 05:09:00 Nolan Moreland [facility] SEDIMENTATION RATE 2023-03-29 05:09:00 Nolan Keita [facility] CBC WITH DIFF 2023-03-29 05:09:00 Aniceto [facility] GLYCOSYLATED HEMOGLOBIN (A1C) 2023-03-29 05:09:00 Dipti Gilman [facility] PROTHROMBIN TIME / INR 2023-03-29 05:09:00 Eduard maza Nolan Colin [facility] ACTIVATED PARTIAL THRMPLAS GYPSY 2023-03-29 05:09:00 Nolan Moreland [facility] HB ABO GROUPING 2023-03-29 05:09:00 Aniceto Nolan [facility] C-REACTIVE PROTEIN 2023-03-29 05:09:00 Gaby etienne Nolan Shaw [facility] BASIC METABOLIC PANEL (NA, K, CL, CO2, GLUCOSE, BUN, CREATININE, CA) 2023-03-29 05:09:00 Aniceto [facility] SEDIMENTATION RATE 2023-03-29 05:09:00 Gaby etienne Nolan [facility] CBC WITH DIFF 2023-03-29 05:09:00 Aniceto [facility] GLYCOSYLATED HEMOGLOBIN (A1C) 2023-03-29 05:09:00 KhaiiDipti [facility] PROTHROMBIN TIME / INR 2023-03-29 05:09:00 Eduard rrbladimir [facility] ACTIVATED PARTIAL THRMPLAS GYPSY 2023-03-29 05:09:00 Aniceto [facility] HB ABO GROUPING 2023-03-29 05:09:00 Aniceto [facility] C-REACTIVE PROTEIN 2023-03-29 05:09:00 Gaby etienne Nolan [facility] BASIC METABOLIC PANEL (NA, K, CL, CO2, GLUCOSE, BUN, CREATININE, CA) 2023-03-29 05:09:00 Aniceto [facility] SEDIMENTATION RATE 2023-03-29 05:09:00 Gaby etienne Nolan [facility] CBC WITH DIFF 2023-03-29 05:09:00 Aniceto [facility] GLYCOSYLATED HEMOGLOBIN (A1C) 2023-03-29 05:09:00 KhaiiDipti [facility] PROTHROMBIN TIME / INR 2023-03-29 05:09:00 Chapa rreal [facility] ACTIVATED PARTIAL THRMPLAS GYPSY 2023-03-29 05:09:00 Moreland [facility] HB ABO GROUPING 2023-03-29 05:09:00 Moreland [facility] C-REACTIVE PROTEIN 2023-03-29 05:09:00 Nolan Keita [facility] BASIC METABOLIC PANEL (NA, K, CL, CO2, GLUCOSE, BUN, CREATININE, CA) 2023-03-29 05:09:00 Nolan Moreland [facility] SEDIMENTATION RATE 2023-03-29 05:09:00 Nolan Keita [facility] CBC WITH DIFF 2023-03-29 05:09:00 Nolan Moreland [facility] GLYCOSYLATED HEMOGLOBIN (A1C) 2023-03-29 05:09:00 Dipti Gilman [facility] PROTHROMBIN TIME / INR 2023-03-29 05:09:00 Nolan Amador [facility] ACTIVATED PARTIAL THRMPLAS GYPSY 2023-03-29 05:09:00 Nolan Moreland [facility] HB ABO GROUPING 2023-03-29 05:09:00 Nolan Moreland [facility] MR CERVICAL SPINE WO CONTRAST 2023-03-19 16:59:51 Requisition, Paper [facility] ASSIGNMENT OF BENEFITS 2023-03-19 15:59:50 Docto r Unassigned, [place] [facility] Procedure on Neck 2023-03-17 00:00:00 Kimi via Medical Tonsillectomy [facility] Medical Appendectomy [facility] Medical Encounters Start Date/Time End Date/Time Encounter Type Admission Type Attending Clinicians Care Facility Care Department Encounter ID Source 2024-06-14 00:00:00 2024-06-14 00:00:00 Ilda Whitney MD: Linda Alegria, [address], [place] [address] , Ph. [facility] - GC_GCBZW_Lulu de leon Geremias* [id number] [facility] 2024-06-07 00:00:00 2024-06-07 00:00:00 Ilda Whitney MD: Linda Alegria, [address], [place] [address] , Ph. [facility] GC_GCBZW_Lulu Archuleat* [id number] [facility] 2024-05-18 00:00:00 2024-05-18 00:00:00 Ilda Whitney MD: [address] [place] [address] Dr Alegria, [facility] [address], [place] [address] , Ph. [facility] - GC_GCBZW_Lulu Archuleta* [id number] [facility] 2023-06-02 00:00:00 2023-06-02 00:00:00 Orders Only Doctor Unassigned, [place] [facility] 1.2.840.114 350.1.13.10 4.2.7.2.686 [id number] [facility] 2023-04-22 00:00:00 2023-04-22 00:00:00 Orders Only Doctor Unassigned, [place] [facility] 1.2.840.114 350.1.13.10 4.2.7.2.686 [id number] [facility] 2023-04-21 00:00:00 2023-04-21 00:00:00 Telephone Khai, [facility] 1.2.840.114 350.1.13.10 4.2.7.2.686 [id number] [facility] 2023-04-21 00:00:00 2023-04-21 00:00:00 Telephone Sarah Camp [facility] 1.2.840.114 350.1.13.10 4.2.7.2.686 [id number] [facility] 2023-04-16 00:00:00 2023-04-16 00:00:00 Telephone Rodolfo Hassan BUILDING 1.2.840.114 350.1.13.10 4.2.7.2.686 [id number] [facility] 2023-04-15 00:00:00 2023-04-15 00:00:00 Transition of Care David Genao GLORIA HO 1.2.840.114 350.1.13.10 4.2.7.2.686 [id number] [facility] 2023-03-28 17:49:00 2023-04-14 17:03:00 Inpatient X [facility] [id number] [facility] 2023-03-28 17:49:00 2023-04-14 17:03:00 Hospital Encounter Betito Nunes [facility] 1.2.840.114 350.1.13.10 4.2.7.2.686 [id number] [facility] 2023-04-08 08:40:00 2023-04-08 13:41:00 Surgery [facility] 1.2.840.114 350.1.13.10 4.2.7.2.686 [id number] [facility] 2023-04-03 07:00:00 2023-04-03 08:57:00 Surgery Anesthesiol [facility] 1.2.840.114 350.1.13.10 4.2.7.2.686 [id number] [facility] 2023-03-31 12:39:00 2023-03-31 16:44:00 Surgery [facility] 1.2.840.114 350.1.13.10 4.2.7.2.686 [id number] [facility] 2023-03-25 00:00:00 2023-03-25 00:00:00 Outpatient R RADIOLOGY [facility] [id number] [facility] 2023-03-19 12:04:14 2023-03-19 23:59:00 Hospital Encounter Radiology [facility] 1.2.840.114 350.1.13.10 4.2.7.2.686 [id number] [facility] 2023-03-19 11:02:55 2023-03-19 12:03:00 Hospital Encounter Radiology [facility] 1.2840.114 350.1.13.10 4.2.7.2.686 [id number] [facility] 2023-03-19 11:02:55 2023-03-19 12:03:00 Outpatient R RADIOLOGY [facility] [id number] [facility] 2023-03-19 00:00:00 2023-03-19 00:00:00 Orders Only Doctor Unassigned, [place] [facility] 1.2.840.114 350.1.13.10 4.2.7.2.686 [id number] [facility] Results Test Description Test Time Test Comments Results Result Co mments Source [facility] [id number] 14:36:00* Test Item Value Reference Range Interpretation Comme nts Leukocytes (test code = Leukocytes) 2+ Nitrite (test code = Nitrite) negative Urobilinogen (test code = Urobilinogen) Normal Protein (test code = Protein) Trace pH (test code = pH) 6.0 Blood (test code = Blood) 1+ Specific [place] (test code = Specific [place]) 1.015 Ketone (test code = Ketone) Negative Bilirubin (test code = Bilirubin) Negative Glucose (test code = Glucose) Negative Appearance (test code = Appearance) Slightly Cloudy Color (test code = Color) Yellow [facility] WITH [id number] 17:17:58* Test Item Value Reference Range Interpretation Comme nts WBC (test code = 6690-2) 11.96 See_Comment H [Automated messa ge] The system which generated this result transmitted reference range: 4.30 - 11.10 10*3/?L. The reference range was not used to interpret this result as normal/abnormal. RBC (test code = 789-8) 3.92 See_Comment L [Automated messa ge] The system which generated this result transmitted reference range: 3.93 - 5.25 10*6/?L. The reference range was not used to interpret this result as normal/abnormal. HGB (test code = 718-7) 11.3 g/dL 11.6-15.0 L HCT (test code = 4544-3) 33.7 % 35.7-45.2 L MCV (test code = 787-2) 86.0 fL 80.6-95.5 MCH (test code = 785-6) 28.8 pg 25.9-32.8 MCHC (test code = 786-4) 33.5 g/dL 31.6-35.1 RDW-SD (test code = 26656-4) 39.9 fL 39.0-49.9 RDW-CV (test code = 788-0) 12.8 % 12.0-15.5 PLT (test code = 777-3) 316 See_Comment [Automated Tillera ge] The system which generated this result transmitted reference range: 166 - 358 10*3/?L. The reference range was not used to interpret this result as normal/abnormal. MPV (test code = 82592-3) 9.5 fL 9.5-12.9 NRBC/100 WBC (test code = 5109099323) 0.0 See_Comment [Automated [employer] ssage] The system which generated this result transmitted reference range: 0.0 - 10.0 /100 WBCs. The reference range was not used to interpret this result as normal/abnormal. NRBC x10^3 (test code = 7170610306) See_Comment [Automated Tillera ge] The system which generated this result transmitted reference range: 10*3/?L. The reference range was not used to interpret this result as normal/abnormal. GRAN MAT (NEUT) % (test code = 770-8) 80.2 % IMM GRAN % (test code = 8174829154) 0.70 % LYMPH % (test code = 736-9) 12.6 % MONO % (test code = 5905-5) 5.2 % EOS % (test code = 713-8) 1.0 % BASO % (test code = 706-2) 0.3 % GRAN MAT x10^3(ANC) (test code = 1726722314) 9.59 10*3/uL 1.88-7.09 H IMM GRAN x10^3 (test code = 2050131844) 0.08 10*3/uL 0.00-0.06 H LYMPH x10^3 (test code = 731-0) 1.51 10*3/uL 1.32-3.29 MONO x10^3 (test code = 742-7) 0.62 10*3/uL 0.33-0.92 EOS x10^3 (test code = 711-2) 0.12 10*3/uL 0.03-0.39 BASO x10^3 (test code = 704-7) 0.04 10*3/uL 0.01-0.07 Lab Interpretation (test code = 30257-3) Abnormal [facility] GLUCOSE (AUTOMATED)2023-04-14 17:04:00* Test Item Value Reference Range Interpretation Comme nts POCT GLU (test code = 8081665240) 126 mg/dL 70-110 H Lab Interpretation (test cod e = 02768-1) Abnormal [facility] GLUCOSE (AUTOMATED)2023-04-14 12:30:48* Test Item Value Reference Range Interpretation Comme nts POCT GLU (test code = 1325799710) 120 mg/dL 70-110 H Lab Interpretation (test cod e = 77354-6) Abnormal [facility] GLUCOSE (AUTOMATED)2023-04-14 01:16:29* Test Item Value Reference Range Interpretation Comme nts POCT GLU (test code = 6167164589) 145 mg/dL 70-110 H Lab Interpretation (test cod e = 71406-4) Abnormal [facility] GLUCOSE (AUTOMATED)2023-04-13 22:02:07* Test Item Value Reference Range Interpretation Comme nts POCT GLU (test code = 9133431890) 156 mg/dL 70-110 H Lab Interpretation (test cod e = 26119-8) Abnormal [facility] GLUCOSE (AUTOMATED)2023-04-13 16:21:16* Test Item Value Reference Range Interpretation Comme nts POCT GLU (test code = 2710075843) 141 mg/dL 70-110 H Lab Interpretation (test cod e = 61469-0) Abnormal [facility] GLUCOSE (AUTOMATED)2023-04-13 15:00:32* Test Item Value Reference Range Interpretation Comme [facility] POCT GLU (test code = 2407380693) 137 mg/dL 70-110 H Lab Interpretation (test cod e = 94281-4) Abnormal [facility] GLUCOSE (AUTOMATED)2023-04-13 12:57:13* Test Item Value Reference Range Interpretation Comme [facility] POCT GLU (test code = 7412029360) 106 mg/dL 70-110 Lab Interpretation (test cod e = 35879-6) Normal [facility] METABOLIC PANEL (NA, K, CL, CO2, GLUCOSE, BUN, CREATININE, CA)2023-04-13 11:18:30* Test Item Value Reference Range Interpretation Comme [facility] NA (test code = 0015800147) 134 mmol/L 135-145 L K (test code = 1589452637) 4.5 mmol/L 3.5-5.0 Slight hemolysis CL (test code = 0626520297) 98 mmol/L 98-108 CO2 TOTAL (test code = 3890548576) 25 mmol/L 23-31 AGAP (test code = 0113014083) 11 2-16 BUN (test code = 0760717011) 18 mg/dL 7-23 Slight hemolysis GLUCOSE (test code = 2771466578) 102 mg/dL 70-110 CREATININE (test code = 3119081713) 0.70 mg/dL 0.50-1.04 CALCIUM (test code = 3706867906) 8.8 mg/dL 8.6-10.6 eGFR (test code = 4013679345) 80.7 mL/min/1.73m2 GARRICK (test code = GARRICK) [...] imaging tests). Lab Interpretation (test code = 40850-6) Abnormal [facility] WITH [id number] 11:05:10* Test Item Value Reference Range Interpretation [...] 32.8 g/dL 31.6-35.1 RDW-SD (test code = 60772-6) 40.8 fL 39.0-49.9 RDW-CV (test code = 788-0) 12.8 % 12.0-15.5 PLT (test code = 777-3) 339 See_Comment [Automated message] The system which generated this result transmitted reference range: 166 - 358 10*3/?L. The reference range was not used to interpret this result as normal/abnormal. MPV (test code = 51700-8) 10.4 fL 9.5-12.9 NRBC/100 WBC (test code = 6076776941) 0.0 See_Comment [Automated message] The system which generated this result transmitted reference range: 0.0 - 10.0 /100 WBCs. The reference range was not used to interpret this result as normal/abnormal. NRBC x10^3 (test code = 7045549968) See_Comment [Automated message] The system which generated this result transmitted reference range: 10*3/?L. The reference range was not used to interpret this result as normal/abnormal. GRAN MAT (NEUT) % (test code = 770-8) 75.9 % IMM GRAN % (test code = 1399632715) 0.50 % LYMPH % (test code = 736-9) 15.8 % MONO % (test code = 5905-5) 6.2 % EOS % (test code = 713-8) 1.2 % BASO % (test code = 706-2) 0.4 % GRAN MAT x10^3(ANC) (test code = 5764971886) 10.97 10*3/uL 1.88-7.09 H IMM GRAN x10^3 (test code = 7892210687) 0.07 10*3/uL 0.00-0.06 H LYMPH x10^3 (test code = 731-0) 2.29 10*3/uL 1.32-3.29 MONO x10^3 (test code = 742-7) 0.89 10*3/uL 0.33-0.92 EOS x10^3 (test code = 711-2) 0.18 10*3/uL 0.03-0.39 BASO x10^3 (test code = 704-7) 0.06 10*3/uL 0.01-0.07 Lab Interpretation (test code = 67630-6) Abnormal [facility] GLUCOSE (AUTOMATED)2023-04-12 20:50:27* Test Item Value Reference Range Interpretation Comme nts POCT GLU (test code = 3257538953) 103 mg/dL 70-110 Lab Interpretation (test cod e = 98291-7) Normal [facility] GLUCOSE (AUTOMATED)2023-04-12 17:05:51* Test Item Value Reference Range Interpretation Comme nts POCT GLU (test code = 3395144505) 119 mg/dL 70-110 H Lab Interpretation (test cod e = 73967-9) Abnormal [facility] GLUCOSE (AUTOMATED)2023-04-12 12:49:23* Test Item Value Reference Range Interpretation Comme nts POCT GLU (test code = 3661806522) 112 mg/dL 70-110 H Lab Interpretation (test cod e = 12607-5) Abnormal [facility] GLUCOSE (AUTOMATED)2023-04-12 01:14:54* Test Item Value Reference Range Interpretation Comme nts POCT GLU (test code = 5478448276) 121 mg/dL 70-110 H Lab Interpretation (test cod e = 85936-6) Abnormal [facility] GLUCOSE (AUTOMATED)2023-04-11 21:17:25* Test Item Value Reference Range Interpretation Comme nts POCT GLU (test code = 8054898694) 149 mg/dL 70-110 H Lab Interpretation (test cod e = 37444-5) Abnormal [facility] GLUCOSE (AUTOMATED)2023-04-11 17:16:57* Test Item Value Reference Range Interpretation Comme nts POCT GLU (test code = 3875173614) 146 mg/dL 70-110 H Lab Interpretation (test cod e = 57971-0) Abnormal [facility] GLUCOSE (AUTOMATED)2023-04-11 13:09:24* Test Item Value Reference Range Interpretation Comme nts POCT GLU (test code = 6475303486) 113 mg/dL 70-110 H Lab Interpretation (test cod e = 61032-8) Abnormal [facility] GLUCOSE (AUTOMATED)2023-04-11 01:42:20* Test Item Value Reference Range Interpretation Comme nts POCT GLU (test code = 4019313399) 159 mg/dL 70-110 H Lab Interpretation (test cod e = 19247-7) Abnormal [facility] GLUCOSE (AUTOMATED)2023-04-10 23:34:23* Test Item Value Reference Range Interpretation Comme nts POCT GLU (test code = 2914869630) 149 mg/dL 70-110 H Lab Interpretation (test cod e = 67323-7) Abnormal [facility] GLUCOSE (AUTOMATED)2023-04-10 17:43:50* Test Item Value Reference Range Interpretation Comme nts POCT GLU (test code = 0506574804) 207 mg/dL 70-110 H Lab Interpretation (test cod e = 64595-6) Abnormal [facility] GLUCOSE (AUTOMATED)2023-04-10 15:01:13* Test Item Value Reference Range Interpretation Comme nts POCT GLU (test code = 4899242552) 153 mg/dL 70-110 H Lab Interpretation (test cod e = 79692-3) Abnormal [facility] METABOLIC PANEL (NA, K, CL, CO2, GLUCOSE, BUN, CREATININE, CA)2023-04-10 12:20:29* Test Item Value Reference Range Interpretation Comme nts NA (test code = 3520682733) 135 mmol/L 135-145 K (test code = 9529475322) 4.2 mmol/L 3.5-5.0 CL (test code = 2749521110) 98 mmol/L 98-108 CO2 TOTAL (test code = 5968669151) 26 mmol/L 23-31 AGAP (test code = 1063511330) 11 2-16 BUN (test code = 9795220876) 14 mg/dL 7-23 GLUCOSE (test code = 3715056244) 152 mg/dL 70-110 H CREATININE (test code = 8789813544) 0.80 mg/dL 0.50-1.04 CALCIUM (test code = 0166309501) 8.5 mg/dL 8.6-10.6 L eGFR (test code = 8690641722) 69.2 mL/min/1.73m2 GARRICK (test code = GARRICK) [...] imaging tests). Lab Interpretation (test code = 32406-5) [facility] 12:20:29* Test Item Value Reference Range Interpretation Comme nts MAGNESIUM (test code = 4119560464) 2.3 mg/dL 1.7-2.4 Lab Interpretation (test cod e = 12663-8) Normal [facility] 12:20:29* Test Item Value Reference Range Interpretation Comme nts PHOSPHORUS (test code = 1080281168) 3.1 mg/dL 2.5-5.0 Lab Interpretation (test cod e = 65356-5) Normal [facility] [id number] 11:56:06* Test Item Value Reference Range Interpretation [...] 33.0 g/dL 31.6-35.1 RDW-SD (test code = 35022-8) 41.5 fL 39.0-49.9 RDW-CV (test code = 788-0) 13.1 % 12.0-15.5 PLT (test code = 777-3) 245 See_Comment [Automated message] The system which generated this result transmitted reference range: 166 - 358 10*3/?L. The reference range was not used to interpret this result as normal/abnormal. MPV (test code = 39284-3) 9.7 fL 9.5-12.9 NRBC/100 WBC (test code = 2536677576) 0.0 See_Comment [Automated message] The system which generated this result transmitted reference range: 0.0 - 10.0 /100 WBCs. The reference range was not used to interpret this result as normal/abnormal. NRBC x10^3 (test code = 3999365825) See_Comment [Automated message] The system which generated this result transmitted reference range: 10*3/?L. The reference range was not used to interpret this result as normal/abnormal. GRAN MAT (NEUT) % (test code = 770-8) 77.4 % IMM GRAN % (test code = 1431727031) 0.50 % LYMPH % (test code = 736-9) 14.0 % MONO % (test code = 5905-5) 7.8 % EOS % (test code = 713-8) 0.1 % BASO % (test code = 706-2) 0.2 % GRAN MAT x10^3(ANC) (test code = 0634150122) 13.92 10*3/uL 1.88-7.09 H IMM GRAN x10^3 (test code = 9267534262) 0.09 10*3/uL 0.00-0.06 H LYMPH x10^3 (test code = 731-0) 2.53 10*3/uL 1.32-3.29 MONO x10^3 (test code = 742-7) 1.41 10*3/uL 0.33-0.92 H EOS x10^3 (test code = 711-2) 0.03-0.39 L BASO x10^3 (test code = 704-7) 0.04 10*3/uL 0.01-0.07 Lab Interpretation (test code = 11543-2) Abnormal [facility] GLUCOSE (AUTOMATED)2023-04-10 01:12:22* Test Item Value Reference Range Interpretation Comme nts POCT GLU (test code = 8675828045) 149 mg/dL 70-110 H Lab Interpretation (test cod e = 87176-5) Abnormal [facility] GLUCOSE (AUTOMATED)2023-04-09 20:43:14* Test Item Value Reference Range Interpretation Comme nts POCT GLU (test code = 1940145322) 148 mg/dL 70-110 H Lab Interpretation (test cod e = 96643-7) Abnormal [facility] GLUCOSE (AUTOMATED)2023-04-09 20:43:14* Test Item Value Reference Range Interpretation Comme nts POCT GLU (test code = 7430092784) 148 mg/dL 70-110 H Lab Interpretation (test cod e = 99766-0) Abnormal [facility] GLUCOSE (AUTOMATED)2023-04-09 16:45:10* Test Item Value Reference Range Interpretation Comme nts POCT GLU (test code = 7805321545) 171 mg/dL 70-110 H Lab Interpretation (test cod e = 43408-9) Abnormal [facility] GLUCOSE (AUTOMATED)2023-04-09 16:45:10* Test Item Value Reference Range Interpretation Comme nts POCT GLU (test code = 5527159952) 171 mg/dL 70-110 H Lab Interpretation (test cod e = 21546-9) Abnormal [facility] GLUCOSE (AUTOMATED)2023-04-09 12:57:16* Test Item Value Reference Range Interpretation Comme nts POCT GLU (test code = 3434712282) 142 mg/dL 70-110 H Lab Interpretation (test cod e = 90723-4) Abnormal [facility] GLUCOSE (AUTOMATED)2023-04-09 12:57:16* Test Item Value Reference Range Interpretation Comme nts POCT GLU (test code = 4209657583) 142 mg/dL 70-110 H Lab Interpretation (test cod e = 37038-4) Abnormal [facility] GLUCOSE (AUTOMATED)2023-04-09 02:02:28* Test Item Value Reference Range Interpretation Comme nts POCT GLU (test code = 3348086225) 219 mg/dL 70-110 H Lab Interpretation (test cod e = 53938-4) Abnormal [facility] GLUCOSE (AUTOMATED)2023-04-09 02:02:28* Test Item Value Reference Range Interpretation Comme nts POCT GLU (test code = 4674317985) 219 mg/dL 70-110 H Lab Interpretation (test cod e = 94352-1) Abnormal [facility] GLUCOSE (AUTOMATED)2023-04-08 22:21:39* Test Item Value Reference Range Interpretation Comme nts POCT GLU (test code = 8119002052) 209 mg/dL 70-110 H Lab Interpretation (test cod e = 20715-5) Abnormal [facility] GLUCOSE (AUTOMATED)2023-04-08 22:21:39* Test Item Value Reference Range Interpretation Comme nts POCT GLU (test code = 3547338079) 209 mg/dL 70-110 H Lab Interpretation (test cod e = 73311-5) Abnormal [facility] GLUCOSE (AUTOMATED)2023-04-08 21:20:21* Test Item Value Reference Range Interpretation Comme nts POCT GLU (test code = 4498640161) 213 mg/dL 70-110 H Lab Interpretation (test cod e = 02808-2) [facility] 21:20:21* Test Item Value Reference Range Interpretation Comme nts POCT GLU (test code = 3242389022) 213 mg/dL 70-110 H Lab Interpretation (test cod e = 78441-2) Abnormal [facility] IwigtlPSLQKBZSLR4446-71-03 15:33:40* Test Item Value Reference Range Interpretation Comme nts APPEARANCE (test code = 1089224071) Cloudy Clear A COLOR (test code = 3033627678) Yellow Yellow PH (test code = 1340566831) 6.0 4.8-8.0 SP GRAVITY (test code = 7205502224) 1.015 1.003-1.030 GLU U QUAL (test code = 5313339664) Normal Normal BLOOD (test code = 7131143363) 1+ Negative A KETONES (test code = 5972526356) 5 mg/dL Negative A PROTEIN (test code = 2887-8) 30 mg/dL Negative A UROBILIN (test code = 0105648765) 4.0 mg/dL Normal A BILIRUBIN (test code = 7264325957) Negative Negative NITRITE (test code = 6411752921) Negative Negative LEUK SARAVANAN (test code = 9761132288) 500/uL Negative A RBC/HPF (test code = 2481116398) 1 See_Comment [Automated messa ge] The system which generated this result transmitted reference range: 0 - 3 HPF. The reference range was not used to interpret this result as normal/abnormal. WBC/HPF (test code = 9490511484) 62 See_Comment H [Automated messa ge] The system which generated this result transmitted reference range: 0 - 5 HPF. The reference range was not used to interpret this result as normal/abnormal. BACTERIA (test code = 7920037485) Moderate Negative A SQ EPITH (test code = 7733198136) 3 See_Comment H [Automated messa ge] The system which generated this result transmitted reference range: <=2 HPF. The reference range was not used to interpret this result as normal/abnormal. Lab Interpretation (test code = 61169-4) [facility] 15:33:40* Test Item Value Reference Range Interpretation Comme nts APPEARANCE (test code = 8250613623) Cloudy Clear A COLOR (test code = 5435845069) Yellow Yellow PH (test code = 4012249905) 6.0 4.8-8.0 SP GRAVITY (test code = 0761904132) 1.015 1.003-1.030 GLU U QUAL (test code = 1183623168) Normal Normal BLOOD (test code = 2455644919) 1+ Negative A KETONES (test code = 4158083580) 5 mg/dL Negative A PROTEIN (test code = 2887-8) 30 mg/dL Negative A UROBILIN (test code = 5746295309) 4.0 mg/dL Normal A BILIRUBIN (test code = 6318162479) Negative Negative NITRITE (test code = 8003713967) Negative Negative LEUK SARAVANAN (test code = 9981946281) 500/uL Negative A RBC/HPF (test code = 1840370387) 1 See_Comment [Automated messa ge] The system which generated this result transmitted reference range: 0 - 3 HPF. The reference range was not used to interpret this result as normal/abnormal. WBC/HPF (test code = 3762694344) 62 See_Comment H [Automated messa ge] The system which generated this result transmitted reference range: 0 - 5 HPF. The reference range was not used to interpret this result as normal/abnormal. BACTERIA (test code = 4829787789) Moderate Negative A SQ EPITH (test code = 5031000180) 3 See_Comment H [Automated messa ge] The system which generated this result transmitted reference range: <=2 HPF. The reference range was not used to interpret this result as normal/abnormal. Lab Interpretation (test code = 01664-1) Abnormal [facility] GLUCOSE (AUTOMATED)2023-04-08 12:53:15* Test Item Value Reference Range Interpretation Comme nts POCT GLU (test code = 7095364462) 133 mg/dL 70-110 H Lab Interpretation (test cod e = 02058-9) Abnormal [facility] GLUCOSE (AUTOMATED)2023-04-08 12:53:15* Test Item Value Reference Range Interpretation Comme [facility] POCT GLU (test code = 3277633126) 133 mg/dL 70-110 H Lab Interpretation (test cod e = 88006-1) Abnormal [facility] METABOLIC PANEL (NA, K, CL, CO2, GLUCOSE, BUN, CREATININE, CA)2023-04-08 12:32:42* Test Item Value Reference Range Interpretation Comme nts NA (test code = 1230724503) 133 mmol/L 135-145 L K (test code = 4152089415) 3.9 mmol/L 3.5-5.0 CL (test code = 8083949919) 99 mmol/L 98-108 CO2 TOTAL (test code = 7112103946) 20 mmol/L 23-31 L AGAP (test code = 6564609661) 14 2-16 BUN (test code = 9006828898) 17 mg/dL 7-23 GLUCOSE (test code = 9929590393) 129 mg/dL 70-110 H CREATININE (test code = 3042941322) 0.70 mg/dL 0.50-1.04 CALCIUM (test code = 7763917393) 9.2 mg/dL 8.6-10.6 eGFR (test code = 7286931262) 80.7 mL/min/1.73m2 GARRICK (test code = GARRICK) [...] imaging tests). Lab Interpretation (test code = 61683-6) Abnormal [facility] METABOLIC PANEL (NA, K, CL, CO2, GLUCOSE, BUN, CREATININE, CA)2023-04-08 12:32:42* Test Item Value Reference Range Interpretation Comme nts NA (test code = 1146202005) 133 mmol/L 135-145 L K (test code = 5448228434) 3.9 mmol/L 3.5-5.0 CL (test code = 2205320157) 99 mmol/L 98-108 CO2 TOTAL (test code = 1115763438) 20 mmol/L 23-31 L AGAP (test code = 8963442703) 14 2-16 BUN (test code = 6618868580) 17 mg/dL 7-23 GLUCOSE (test code = 5956478199) 129 mg/dL 70-110 H CREATININE (test code = 8040417145) 0.70 mg/dL 0.50-1.04 CALCIUM (test code = 9343096875) 9.2 mg/dL 8.6-10.6 eGFR (test code = 4138614466) 80.7 mL/min/1.73m2 GARRICK (test code = GARRICK) [...] imaging tests). Lab Interpretation (test code = 19376-1) [facility]normal [facility] / [id number] 11:08:16* Test Item Value Reference Range Interpretation [...] the indications. Lab Interpretation (test code = 47433-3) [facility]normal [facility] THRM[facility]AS [id number] 11:08:16* Test Item Value Reference Range Interpretation Comme [facility] APTT Patient (test code = 3173-2) 29 See_Comment [Automated messa [employer]] The system which generated this result transmitted reference range: 26 - 36 Seconds. The reference range was not used to interpret this result as normal/abnormal. Lab Interpretation (test code = 34643-4) Normal [facility] / [id number] 11:08:16* Test Item Value Reference Range Interpretation Comme [facility] PROTIME PATIENT (test code = 5964-2) 12.8 [...] the indications. Lab Interpretation (test code = 09127-3) Abnormal [facility] TH[facility] [id number] 11:08:16* Test Item Value Reference Range Interpretation Comme [facility] APTT Patient (test code = 3173-2) 29 See_Comment [Automated messa [employer]] The system which generated this result transmitted reference range: 26 - 36 Seconds. The reference range was not used to interpret this result as normal/abnormal. Lab Interpretation (test code = 48008-4) Normal [facility] WITH [id number] 10:54:29* Test Item Value Reference Range Interpretation [...] 33.7 g/dL 31.6-35.1 RDW-SD (test code = 76330-5) 40.6 fL 39.0-49.9 RDW-CV (test code = 788-0) 13.0 % 12.0-15.5 PLT (test code = 777-3) 262 See_Comment [Automated messa ge] The system which generated this result transmitted reference range: 166 - 358 10*3/?L. The reference range was not used to interpret this result as normal/abnormal. MPV (test code = 22279-3) 10.0 fL 9.5-12.9 NRBC/100 WBC (test code = 0620249239) 0.0 See_Comment [Automated [employer] ssage] The system which generated this result transmitted reference range: 0.0 - 10.0 /100 WBCs. The reference range was not used to interpret this result as normal/abnormal. NRBC x10^3 (test code = 0167966206) See_Comment [Automated messa ge] The system which generated this result transmitted reference range: 10*3/?L. The reference range was not used to interpret this result as normal/abnormal. GRAN MAT (NEUT) % (test code = 770-8) 63.3 % IMM GRAN % (test code = 9352837910) 0.60 % LYMPH % (test code = 736-9) 26.7 % MONO % (test code = 5905-5) 7.5 % EOS % (test code = 713-8) 1.4 % BASO % (test code = 706-2) 0.5 % GRAN MAT x10^3(ANC) (test code = 7995931130) 7.62 10*3/uL 1.88-7.09 H IMM GRAN x10^3 (test code = 1430155027) 0.07 10*3/uL 0.00-0.06 H LYMPH x10^3 (test code = 731-0) 3.22 10*3/uL 1.32-3.29 MONO x10^3 (test code = 742-7) 0.90 10*3/uL 0.33-0.92 EOS x10^3 (test code = 711-2) 0.17 10*3/uL 0.03-0.39 BASO x10^3 (test code = 704-7) 0.06 10*3/uL 0.01-0.07 Lab Interpretation (test code = 30904-3) Abnormal [facility] WITH [id number] 10:54:29* Test Item Value Reference Range Interpretation [...] 33.7 g/dL 31.6-35.1 RDW-SD (test code = 64399-2) 40.6 fL 39.0-49.9 RDW-CV (test code = 788-0) 13.0 % 12.0-15.5 PLT (test code = 777-3) 262 See_Comment [Automated [employer] ge] The system which generated this result transmitted reference range: 166 - 358 10*3/?L. The reference range was not used to interpret this result as normal/abnormal. MPV (test code = 99915-0) 10.0 fL 9.5-12.9 NRBC/100 WBC (test code = 7597355439) 0.0 See_Comment [Automated [employer] ssage] The system which generated this result transmitted reference range: 0.0 - 10.0 /100 WBCs. The reference range was not used to interpret this result as normal/abnormal. NRBC x10^3 (test code = 3752320657) See_Comment [Automated [employer]] The system which generated this result transmitted reference range: 10*3/?L. The reference range was not used to interpret this result as normal/abnormal. GRAN MAT (NEUT) % (test code = 770-8) 63.3 % IMM GRAN % (test code = 7658804475) 0.60 % LYMPH % (test code = 736-9) 26.7 % MONO % (test code = 5905-5) 7.5 % EOS % (test code = 713-8) 1.4 % BASO % (test code = 706-2) 0.5 % GRAN MAT x10^3(ANC) (test code = 6592962403) 7.62 10*3/uL 1.88-7.09 H IMM GRAN x10^3 (test code = 3173647466) 0.07 10*3/uL 0.00-0.06 H LYMPH x10^3 (test code = 731-0) 3.22 10*3/uL 1.32-3.29 MONO x10^3 (test code = 742-7) 0.90 10*3/uL 0.33-0.92 EOS x10^3 (test code = 711-2) 0.17 10*3/uL 0.03-0.39 BASO x10^3 (test code = 704-7) 0.06 10*3/uL 0.01-0.07 Lab Interpretation (test code = 11447-1) [facility] - ONCE [id number] 10:39:00* Test Item Value Reference Range Interpretation Comme nts ABO & RH (test code = 20) B POSITIVE IAT (test code = 1185) Negative [facility] and Screen - ONCE [id number] 10:39:00* Test Item Value Reference Range Interpretation Comme nts ABO & RH (test code = 20) B POSITIVE IAT (test code = 1185) Negative [facility] GLUCOSE (AUTOMATED)2023-04-08 02:00:38* Test Item Value Reference Range Interpretation Comme nts POCT GLU (test code = 4778778489) 141 mg/dL 70-110 H Lab Interpretation (test cod e = 42982-5) Abnormal [facility] GLUCOSE (AUTOMATED)2023-04-08 02:00:38* Test Item Value Reference Range Interpretation Comme nts POCT GLU (test code = 8478867589) 141 mg/dL 70-110 H Lab Interpretation (test cod e = 02170-7) Abnormal [facility] GLUCOSE (AUTOMATED)2023-04-07 20:55:38* Test Item Value Reference Range Interpretation Comme nts POCT GLU (test code = 0375115139) 169 mg/dL 70-110 H Lab Interpretation (test cod e = 73244-9) Abnormal [facility] GLUCOSE (AUTOMATED)2023-04-07 20:55:38* Test Item Value Reference Range Interpretation Comme nts POCT GLU (test code = 5626186623) 169 mg/dL 70-110 H Lab Interpretation (test cod e = 12858-5) Abnormal [facility] GLUCOSE (AUTOMATED)2023-04-07 16:42:07* Test Item Value Reference Range Interpretation Comme nts POCT GLU (test code = 3879232675) 218 mg/dL 70-110 H Lab Interpretation (test cod e = 64453-1) Abnormal [facility] GLUCOSE (AUTOMATED)2023-04-07 16:42:07* Test Item Value Reference Range Interpretation Comme nts POCT GLU (test code = 3869581718) 218 mg/dL 70-110 H Lab Interpretation (test cod e = 15786-8) [facility] 13:18:00* Test Item Value Reference Range Interpretation Comme nts POCT GLU (test code = 7982615175) 117 mg/dL 70-110 H Lab Interpretation (test cod e = 80128-5) Abnormal [facility] GLUCOSE (AUTOMATED)2023-04-07 13:18:00* Test Item Value Reference Range Interpretation Comme nts POCT GLU (test code = 3239579237) 117 mg/dL 70-110 H Lab Interpretation (test cod e = 83755-0) Abnormal [facility] GLUCOSE (AUTOMATED)2023-04-07 02:03:47* Test Item Value Reference Range Interpretation Comme nts POCT GLU (test code = 7153437524) 197 mg/dL 70-110 H Lab Interpretation (test cod e = 50834-4) Abnormal [facility] GLUCOSE (AUTOMATED)2023-04-07 02:03:47* Test Item Value Reference Range Interpretation Comme nts POCT GLU (test code = 8551571991) 197 mg/dL 70-110 H Lab Interpretation (test cod e = 33139-3) [facility] 20:50:57* Test Item Value Reference Range Interpretation Comme nts POCT GLU (test code = 5127129025) 168 mg/dL 70-110 H Lab Interpretation (test cod e = 41544-1) [facility] 20:50:57* Test Item Value Reference Range Interpretation Comme nts POCT GLU (test code = 6367134577) 168 mg/dL 70-110 H Lab Interpretation (test cod e = 98075-8) Abnormal [facility] GLUCOSE (AUTOMATED)2023-04-06 16:59:30* Test Item Value Reference Range Interpretation Comme nts POCT GLU (test code = 0983770814) 195 mg/dL 70-110 H Lab Interpretation (test cod e = 02294-0) Abnormal [facility] GLUCOSE (AUTOMATED)2023-04-06 16:59:30* Test Item Value Reference Range Interpretation Comme nts POCT GLU (test code = 8884130461) 195 mg/dL 70-110 H Lab Interpretation (test cod e = 81495-1) Abnormal [facility] GLUCOSE (AUTOMATED)2023-04-06 16:59:30* Test Item Value Reference Range Interpretation Comme nts POCT GLU (test code = 4139339127) 195 mg/dL 70-110 H Lab Interpretation (test cod e = 90115-5) Abnormal [facility] GLUCOSE (AUTOMATED)2023-04-06 12:36:01* Test Item Value Reference Range Interpretation Comme nts POCT GLU (test code = 9393581715) 122 mg/dL 70-110 H Lab Interpretation (test cod e = 07074-8) Abnormal [facility] GLUCOSE (AUTOMATED)2023-04-06 12:36:01* Test Item Value Reference Range Interpretation Comme nts POCT GLU (test code = 6720350619) 122 mg/dL 70-110 H Lab Interpretation (test cod e = 64659-8) Abnormal [facility] GLUCOSE (AUTOMATED)2023-04-06 12:36:01* Test Item Value Reference Range Interpretation Comme nts POCT GLU (test code = 1076218573) 122 mg/dL 70-110 H Lab Interpretation (test cod e = 31902-8) Abnormal [facility] GLUCOSE (AUTOMATED)2023-04-06 00:41:43* Test Item Value Reference Range Interpretation Comme nts POCT GLU (test code = [id number]) 181 mg/dL 70-110 H Lab Interpretation (test cod e = 73410-1) Abnormal [facility] GLUCOSE (AUTOMATED)2023-04-06 00:41:43* Test Item Value Reference Range Interpretation Comme nts POCT GLU (test code = 6741235167) 181 mg/dL 70-110 H Lab Interpretation (test cod e = 32954-2) Abnormal [facility] GLUCOSE (AUTOMATED)2023-04-06 00:41:43* Test Item Value Reference Range Interpretation Comme nts POCT GLU (test code = 2739742609) 181 mg/dL 70-110 H Lab Interpretation (test cod e = 13090-5) Abnormal [facility] GLUCOSE (AUTOMATED)2023-04-05 21:26:41* Test Item Value Reference Range Interpretation Comme nts POCT GLU (test code = 9105656002) 137 mg/dL 70-110 H Lab Interpretation (test cod e = 79971-6) Abnormal [facility] GLUCOSE (AUTOMATED)2023-04-05 21:26:41* Test Item Value Reference Range Interpretation Comme nts POCT GLU (test code = 3330963112) 137 mg/dL 70-110 H Lab Interpretation (test cod e = 80879-2) Abnormal [facility] GLUCOSE (AUTOMATED)2023-04-05 21:26:41* Test Item Value Reference Range Interpretation Comme nts POCT GLU (test code = 2694826282) 137 mg/dL 70-110 H Lab Interpretation (test cod e = 54954-1) Abnormal [facility] GLUCOSE (AUTOMATED)2023-04-05 17:02:13* Test Item Value Reference Range Interpretation Comme nts POCT GLU (test code = 2794654980) 149 mg/dL 70-110 H Lab Interpretation (test cod e = 37304-2) Abnormal [facility] GLUCOSE (AUTOMATED)2023-04-05 17:02:13* Test Item Value Reference Range Interpretation Comme nts POCT GLU (test code = 1505405770) 149 mg/dL 70-110 H Lab Interpretation (test cod e = 54588-6) Abnormal [facility] GLUCOSE (AUTOMATED)2023-04-05 17:02:13* Test Item Value Reference Range Interpretation Comme nts POCT GLU (test code = 0877909295) 149 mg/dL 70-110 H Lab Interpretation (test cod e = 82207-0) Abnormal [facility] GLUCOSE (AUTOMATED)2023-04-05 13:05:58* Test Item Value Reference Range Interpretation Comme nts POCT GLU (test code = 0244812139) 138 mg/dL 70-110 H Lab Interpretation (test cod e = 36967-6) [facility] 13:05:58* Test Item Value Reference Range Interpretation Comme nts POCT GLU (test code = 4008081006) 138 mg/dL 70-110 H Lab Interpretation (test cod e = 03133-7) [facility] 13:05:58* Test Item Value Reference Range Interpretation Comme nts POCT GLU (test code = 1031232778) 138 mg/dL 70-110 H Lab Interpretation (test cod e = 03710-7) Abnormal [facility] GLUCOSE (AUTOMATED)2023-04-05 00:50:15* Test Item Value Reference Range Interpretation Comme nts POCT GLU (test code = 3225268245) 216 mg/dL 70-110 H Lab Interpretation (test cod e = 66468-3) Abnormal [facility] GLUCOSE (AUTOMATED)2023-04-05 00:50:15* Test Item Value Reference Range Interpretation Comme nts POCT GLU (test code = 8280953080) 216 mg/dL 70-110 H Lab Interpretation (test cod e = 56351-2) Abnormal [facility] GLUCOSE (AUTOMATED)2023-04-05 00:50:15* Test Item Value Reference Range Interpretation Comme nts POCT GLU (test code = 6676708916) 216 mg/dL 70-110 H Lab Interpretation (test cod e = 83542-8) Abnormal [facility] GLUCOSE (AUTOMATED)2023-04-04 22:46:04* Test Item Value Reference Range Interpretation Comme nts POCT GLU (test code = 4866964402) 145 mg/dL 70-110 H Lab Interpretation (test cod e = 13070-9) [facility] 22:46:04* Test Item Value Reference Range Interpretation Comme nts POCT GLU (test code = 8709087831) 145 mg/dL 70-110 H Lab Interpretation (test cod e = 03210-8) Abnormal [facility] GLUCOSE (AUTOMATED)2023-04-04 22:46:04* Test Item Value Reference Range Interpretation Comme nts POCT GLU (test code = 2587970086) 145 mg/dL 70-110 H Lab Interpretation (test cod e = 19132-4) Abnormal [facility] GLUCOSE (AUTOMATED)2023-04-04 17:15:21* Test Item Value Reference Range Interpretation Comme nts POCT GLU (test code = 4757818695) 164 mg/dL 70-110 H Lab Interpretation (test cod e = 87412-8) Abnormal [facility] GLUCOSE (AUTOMATED)2023-04-04 17:15:21* Test Item Value Reference Range Interpretation Comme nts POCT GLU (test code = 0043994645) 164 mg/dL 70-110 H Lab Interpretation (test cod e = 83382-8) Abnormal [facility] GLUCOSE (AUTOMATED)2023-04-04 17:15:21* Test Item Value Reference Range Interpretation Comme nts POCT GLU (test code = 2739878695) 164 mg/dL 70-110 H Lab Interpretation (test cod e = 26622-7) Abnormal [facility] GLUCOSE (AUTOMATED)2023-04-04 13:13:28* Test Item Value Reference Range Interpretation Comme nts POCT GLU (test code = 0032230307) 127 mg/dL 70-110 H Lab Interpretation (test cod e = 91271-3) Abnormal [facility] GLUCOSE (AUTOMATED)2023-04-04 13:13:28* Test Item Value Reference Range Interpretation Comme nts POCT GLU (test code = 1307372832) 127 mg/dL 70-110 H Lab Interpretation (test cod e = 51519-0) Abnormal [facility] GLUCOSE (AUTOMATED)2023-04-04 13:13:28* Test Item Value Reference Range Interpretation Comme nts POCT GLU (test code = 1734593932) 127 mg/dL 70-110 H Lab Interpretation (test cod e = 75889-8) [id number] 22:58:22* Test Item Value Reference Range Interpretation Comme nts Case Report (test code = [id number]) Surgical Pathology ?Case: [id number] ? Authorizing Provider: ?Natalie Ridley MD ?Collected: ? 03/31/2023 1517 ?Ordering Location: ? ? [facility] OR ? Received: ?03/31/2023 1526 ? Department ? Pathologist: ? Sandra Tyler MD ?Intraop: ? Sandra Tyler MD ?Specimens: ? 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 Final Diagnosis (test code = [id number]) i5yarLNvTTVhv4pxGFAho GFuZzEwMzNcZnRuYmpcdW MxIHtccnRmMVxlcGljMTA 4WWLbDP0eaChwdLh4jGaq DUFfyoU0yFCnVZpjx3hqE GX1n0meliwrJVVsSJobHy 9udHRibHtcZjAgQXJpYWw 4qB07SFMdwA4pqJMpJQv8 XHBhcGVydzEyMjQwXHBhc VEabUC1GBFlON2bnurxNL qpWDapYWPgbiK8NFTgsPX kI8GaXEBzAN2fecpsFDH0 NCgaJIJbBXK7JmJjSEHxk 4Kgncn4LtOkpUMlHRybmW FpblxmczIwXHBhciBBLiw uLk8fIf3UKWOpA9GZYyUm OMKYEqUKRiLlEqFkMq4GO ICLBC5GErslN90DDHBULP 9NWTpccGFyXGxpMzYwXGZ eLOO6VRahyO4lTzCuRPFa YL0bGLGSDKJNDLLTRgVNQ BODT1LNJfATZm9VYFxmC1 3YW5pOLNOITHHBZSKBGUA VFLHXYYOUHsgGUN5gAGEK CLMIW19PFO0HFQxhSTDrc UvhMUHnRKagfV3yABCbuo jkHKIsYUS6NfF4KQGWc4O biSYiTG7mIPD9HGUip77p NJ3PETM0UsP5YxSnBBd9J cTdEN9qfTTsGZSpxv79TR L2QlDcb7X8UDXxHsLkSYM mZZ8nqFttGGQdZS1pZXMs V9vxfM3jiik8EoMoPVDiH lJ0DYTmwxW4Szv8EKFqLC qsn5bzi5HoT6JcsPAzrUj 8w0cnMKSbXcB6gLIvGTgr Z7zykjXlcCReZRJhYYx8a QhrOfXrYIQkc9gcmvGkWt NoYXJzZXQwIENhbGlicmk 7aQ44OSCluP8toREpSWbw pmOtClA0MNboGQOzMvB8W KIpuGQhNFAhF9xaEFHxNT roVYAeYHovxTDvAQZ0eYq uy1U1fBJgqIZrgTxzOcXz ZwExDLMGv9MyZFe5dNwsZ 3HiBVNlTtG3jKUbBIEcCS sfURSbFTWgxhE5qH49BUi qycB9oZXzw3Ukb51yz959 pC0gdNMmMAW4SDUqCHQwl TJrGTJfRNG7BUCdlVQlS5 gvUDGlPG6fpdnjZDohVEe xALPpsZV8VLGyrBXiC6Fz KSCqJKktHCEyuan2ChMzF h8rcXOdyXxrHWcjg3ahf7 yfqRQiVmz0NRUbSzCwFad tZJzix3Wgh6oyDNEbym7l ASG0mKQraLgxz4X7xDXjT RLvoRIynhLcRMJePaG1UK yrNZ9vya38YVCgRGL8lf0 ybGNccGdicmRyaGVhZFxw J3KpLCKyg798UZVjD6VaW DAza7H0leEkGnIwCTIueW E3hvS4DBPrOBm8yDOllgB 1gpGuiIPfT8hwlS5aJDOf MU9twxqac0szMUsiPOcuV WZklOA8ecE1OFOzyWJfV9 JnzF7wYBGmBWtmBVShksf 9GqCmWl2wcIEeyLheOCnc YmtwYWdlXHBnbmNvbnRcc GduZGVjXHBsYWluXHBsYW luXGYwXGZzMjRccWxccGx bgR5wQxJgEjXnUZkuGU7e RBEeQ3aifMLdRVNjLYEsJ 2poQmUsdO9osLvtLXqfYe JcZnMyMFxwYXIgSSBoYXZ lIHBlcnNvbmFsbHkgcmV2 bUQ7WCJfRFpaAUSlDAKxm EUpfa6ibWowWSCzOR8tBP FncmVlIHdpdGggYWxsIHN 0YXRlbWVudHMgbWFkZSBi eSByZXNpZGVudHMsIGZlb Kodb3Khv7YewGZ9fJ1qz1 gkk8TtOMCctUJ3AO27pxQ 6cM8lMSOtAT2mYEYeBW9y dLJvaGLrJKTdz26dxDamy yByZXBvcnQuXHBsYWluXG YyXGZzMjhcbGFuZzEwMzN caGljaFxmMlxkYmNoXGYy XOosC4uaAbAnJzUaZAxvN XJ9fQ== Final Diagnosis Comment (test code = [id number]) c4osqSTpOFCljPJfTEWzJ 1weowZxUMPxyVFsA0Fcyu mtWBzyUR3oIS0ypZienMT abRSxLLCfRlBdg9fkx730 dCLip5osPXBYtapitRe2e AonW17ur3O5TslwI0drGC XdMDklioGukwH9TKTdtSY xGWa8OWPrfDOiypUiUeKm FDPwrSDyzOH0WKZpAA4fk qgxMLpkYEezWWTspdL6EX BxaXBmW0SyZCGaDB5rryf cGWK3AXyvALCnYIV9RdQp IBMdy2Pvued8LxRguAWkJ FxwbGFpblxmczIwIFNlY3 Bxs64fISLfh7xmNm7gMKK pbnZvbHZlZCBieSBtZXRh d5LnjKgcNRSsSS1sB9ReF 9xee93aHPmnbAMlCUTmfR UrlgBpw9TufY1wwCYbVPN wdyHdNFJdTC2lXVWgHMIl YPebIWTqc67wspMtgQKfr MJvDDJpDNAbDBT9I0EfpI veGIynIwJmMB45aCG4uX9 hOYI3jULyNB2dqt9ww8Lj hJ43qyNbJJVsdTb0RR7aq ZLzdSAeHB36W6mnaPlqAC HoMVHll2PeG8QfUuNoVe8 bgZYaeoKyoTIlE0Q5pkJd HUDmEFSjm8Wsam2omRsxb UQjtUTgiB9vlQMzKZRdCW Myj33iNzSDdHVsBNIuHMN jCUB2bT1nuCMxgOlrQTGw aSahMXolBQnpbz68pd0gh 7BhvfM2RAltY1csj86rwZ ooISoaKIWzo809kOlyCP4 wFW18P2boj8ylKAZgVNVe pgMdxsCsgLR9e3TjDqVSA 3A4nPXfSHHtaLp4a6WjLo YpvTi1olUaHMKdJTJrd9W eLX1eVAAdkcpcLSCnTjhn bB6zrW4qkNwknY0mbZUvz GC4xtipGBSun7AoRXA4EF siuPvsDDZ0hG1yDRLkcDn dRDZbeH0fe5BeZZNyTBF0 uk5vIxOfy4JpxDp6oYG2J GZvciBDSzcsIEdBVEEtMy wgRVIsIGFuZCBQUiwgYW5 gKZQcZOAbBZspcJv8PKRo b1BgP2kbWXuaBRBNYHgqL WRzWAJOASOlWL4jPSRiJS Qni5HgzN5la5hrXvBwFNT 1fFCtylTekyDdbZ2hjN1y hGmxze90mMYiQXN7oIKrw jYaXYQeHLBve0Mto1xjLO 2sCXBwLXJqiDRuzvpcoT5 uXHBhclxwYXIgQnJlYXN0 ZFWcs27fgsvhcdWoyY76x h2qxYCdnhTuc8TwDANqZK Ebm3OdZMZsu09uGyxvD0t gNhKkl3f8hUQ2kDJtHq7s rG34sF6yGKXqf6AfuGEoI KJgTZPkzVOlMCIhW0FiT4 lmaWVkKTpccGFyXHBhciA uIWdaRHUKNDSru4c4mAJa WNOjVYCuQFF3wIInf9b0n EG3VTSwsDFuz2SoO8OjxD EndF3qVZNobZWyevZtbQT qtbZdkCToxzzkO2chGLZe MQZpTExhwrOmJTQdw6GeM UZaSpOuUD8gQ4klVAOkCC FvYH49OPIdPIdoN72jeGS vbCBjZWxscyBhYnNlbnQu XHBhciAgLSBcYiBQUiBwb 2TfiIc6KQkgLRKqetCddY l3CKerjAwhQLFbOSV1qE9 oMTOmaRnfCS8wGVBeMHZv CB87M4sbLVTtp7UiuA1gc mdccGFyICAgIEFsbHJlZC AtS56iSDC1YChtWeP5GLr ccGFyICAgIEludGVybmFs MLOvfjBcs8wgQ4LkcWAhZ GQzEC30YemoQYJwRS5sYO HjLEXxFQGhvxX7FP5xC9W 7nLKtXBvsLmgzRLArEG8y CUV8hP6eEBPwiBtiYE5xn EPjWW0xmMVtz1VinB8glw dccGFyXGNmMVxwYXIgQWx mGCU1jQPebrMmBHVxuxPo g0jgJTQnd9xwOYIztg3hx slugCXrjjQyU6Pvdxz1xA 4gXHBhclxjZjBccGFyXGZ zMjIgIFxwYXJcZnMyMCBF Hy1MBbHWkST2pVMxlQBvC WW7HZRukI9mBWP3j5tqVn JtftNxuU10wz3pdhbkpJA 9iNRfEYYuDDyfk5v1sWIp s47xR4gkerEfCKAecDomo 2XxDODdVQANRBGhc75wBA MDDLWaukDwWCTkN5mkpqV yGLUjLqFRGMSuTGNhlr18 ZWQpIHdpdGggdGhlIFVsd QHgPppjilALjnc0RQReDP wgREFCIERldGVjdGlvbiB LaXQgKFZlbnRhbmEpLiAg OJEhdc0iddksrNZltrVwB YHmbiJjKR7mVEJta9t7fO EzQUXpeqFpc7tjRRDwLPQ 1a9RzKnQuHDocLAOfrdSf jb0eljPvSX5uCAFgyMUwt UPnbIIlRCYzTvSirpF4KM itRFF4DCWhYIGfs8YkcL2 cUKQjMZIQLG9UW4YUZPk7 aWRlbGluZXMgdXNpbmcgZ r3dcDDexS9fYtu4WVUimY OsZBYuyI3wSU1hAHXkWVA bq0ZqeLhmrxNgOZBnnucn YXIgVGhlIGNyaXRlcmlhI QClMQFrLs0tNRGcrZ9spL dvNcYKNw8MViBPdH03qv5 krBXdzTV6khktdpFvyLs8 prSmwnGpxL8mIUUlh7SkM D3jRYH4lUNgDACsWDUUMH AvQVNDTyBndWlkZWxpbmV hZuxzNICopMGvAGTrm1e9 aMHbAQsfWDX7RRBamAbda mCqdqRxxFYdoMB1mfHrLL wgbmVnYXRpdmUgbGVzcyB 0aGFuIDElLlxwYXJccGFy QSIbdFEwBOGPM88tXVujn NZpCDOulll2tj95VQd8ti BhZGRmdDNcdHJwYWRkZmw zXHRycGFkZGwxMDVcdHJw YWRkZnIzXHRycGFkZHIxM DVcdHJwYWRkZmIzXGNsYn UhyhWsZmAysq7vnsNlE2d lagZsdLlelzYgho4wUOqp tCYfQGKmXGMoSISxp76yZ SEwMeIqjpDdIlSslx9kfa UwS7f0HME9WGl5CRBlWyS bI8kehEtzTAYxp2bdSQNx CTL6FhoeYJxmrKIbGuOuC 4enkfJifQwrmrZeuk5mEU etvPLiPWInXLKyLYQbv47 rXYFtIyFxsyVhEdDxax6g mcGrF0drmxTlQfrjjiDfr r6aYHhfkJPjxfDehXDfU7 xzmMGPrOJ3rVNjJ4g7F6c dzIy2YjO3ZELmyOc6UQOv MlxwYXJkXGludGJsXHFjI NVSS0IIEkCAV10bZ5VEQs UmMVYKAMqpL5IlcPhrKKD kXGludGJsXHFjIFBFUkNF BxVGO1DyUT3PQLAFZiYwL 9DYVLIvO8IaqBfdiaKubE xlw7ipfFQcj0FxeLQaPAB bFuPzNZGimLPgBTQzZ3y1 rpBjZKWcOEQ2TSWnlQRwX MMyL3y0ksFcTMDrIGR2JQ RdlQIyYBIdX3jghHEkLJF 2JSLaBNIqb90pKEVaYcFj qizxLaGpwh7odrPrA1dir sWaomleokOnir4iIMqowY RxMKIbGHAcALOsr03uWNK qtlEreXFhrLseqXI8j2zz KLRzT0lhaTiSjGF3wKKsV uTgS8HcrKe5VkZ4FSSsAz QelsAfJrImnn4ysuUlL9d umoRcfTmbarLwxr0oXJtz cFFcDZFeEJMfZOKbt66uF WZjAmDrqrLtZwOhyy7enm XcL1i2FFT4YYe4GWVbUrG hX7manFbjPRQbd9qsMDNd IRE8BorzQXsziRu3KcPhi GFyZFxpbnRibFxxYyAwXG NlbGxccGFyZFxpbnRibFx mXlNoEANgfEgwxU98Voxb qj51JVFfj8soUTKlaSCmK QY2E4f8ytLoYPNgbMBzwF KtVDZjbWKtOTi0ywUxZOL mcjNcdHJwYWRkcjEwNVx0 kuNrIPZgSqCfV7liutQes PadljArlm9iWDxwgOXpTZ XoMQHsJYClp37jSVPdFfZ nshNoIgFdie8bkdQhP8aw maLiPpnrpoMept4xVJxrr YRsgcFqjGCoN7emhZVJkN U5fNKdO8r5E9lcnFh1CiW 3HIKktPs2ZKS3LlqidRKg IPK6KIOdERYqf10zJUBxD qXdorgpUeUega1ohgAhG4 ktgvZrcpeyieZlbv9mVRu rqLFvDSYpWWRzYDSfo19t KVUjldSpzZCopQoazXM6m 4yeKIGbX0znbCiAdKT3yG MpPaSrK5AqiLd0LNZrMOF jmwNjaG28VnphmJSwOJan XMyjVKMturPkkT97Dgnxa TXwQKZxNSWgjOlcpW06Ng otqe22PQSaq5wlRPCpkLK eZRR2O3s7jrWmZOGsvYNr iRRfEXPotBTePDz6msVnK GRmcjNcdHJwYWRkcjEwNV a7rwSfEHZtZiIbT2drpeZ btEcvcxRktm0pQVhnxEFl PEIkYOUkSMQnr60rMJMaS bVyfuXvXsFmcl9pknFsP4 ftbcBnPvlwsbKeru4qGWp pfXEmodVaoZXqD0xznTUJ bQZ3eVEuC2s5A1ahfKq0B cC7JKSpqMu7LRF9KswfiN SqGZJ0REQeRIKkl47aHON tOjQsonulVxGxzs0cibOg S0usmlJgjhrvsmYunl0nD VxjbGJyZHJiXGJyZHJub2 5lXGNsdmVydGFsdFxjbGZ 9k0fbZYXcD5rgyFsWcKG4 fVMpVvOuN1FowPk0FAAaP UDpyeUkbI22CgfoiVLcRb ycHLqeTGKtptYwmU32Xas dlPGiED3dPEJlM1ZopRur waJkhMdwk5izjSRjr0Vxu HJwYWRkZnQzXHRycGFkZG VwL8x5zlLrTYPcDUV7QZU mrXKhKYAsM5w5psAaOTCg VBY9QSYbgOLmKZRzU3neq ATrUDH0EJFwMNVjf36gET WmYxGfjtdcBpBojl6hymB cQ5vrwxZsypuwiaMchg3q ZVxjbGJyZHJiXGJyZHJub 25lXGNsdmVydGFsdFxjbG W9g5mkGUUeH4wpxUxQzWQ 3xJYmLwLiP0JlyBz6BzK1 VBGsYiNkfrXnPzLbjs4vy rSeB5hzxtDfvFwgitXdrw 9uZVxjbGJyZHJyXGJyZHJ qo64jZMPoAeXcqkLjDtAn gm0uycKcO6m5QVI1FEt6R SKkDvSxP1dzyYrpUZUzs2 szWHIaMUH2XkcnOQengVf 1MzJccGFyZFxpbnRibFxx YyAzXGNlbGxccGFyZFxpb yOmcIhdGlDuLQ8bMpDkR8 AtcDmftqGktEbck6niqGJ oq0ZtkYQcHURmKfDjDENa mFXuRMNcN5y3gvPzZLIwG TJ0DPHzpMHeKYImF7z4kv EgICOfFIS0KKJsrIShZHZ xR2lnaHJzTIO6AWJmETTf h28oMEXsSgOtibraFxYay u4gsoOjG0atubMjqzlymx Flbg2uMXlvqJYuQWUeJLN eNYPxn05dNAEqzgCzbFRa pNmndTI4m8zfEYBzS3zng QkUaWE1sKEuHlObI5PpzS m8CwD5HHEoIlVncpGlGbS vxp6yneUpD5kfjhHkjJuy fuJtyp9cYBeavBWcQBWlX PZwXAZlh09nITChXxShdu CaWxVlud7xbnPkN7a7ZZX 0NKy2GNXoXmXgS0hhaRld VFDvk8qqBBKqPUX3NojmY FyzyCu1NdVxeVTjCQoaua GaqWrbWnG3KSLuaHyurOK oTTsuqsYamDjuFzDaZb54 KwSjD9AxeEtbreXlmFjop 7kwcNCvt7RfcFTvgDQoc2 x6ffOcYBBcvMMcoUQbRAW kZmwzXHRycGFkZGwxMDVc dHJwYWRkZnIzXHRycGFkZ HIxMDVcdHJwYWRkZmIzXG GiMbKyfdLfOrCkoe4xtlU zF4awlwGqfBqlptRgcl9x ZVxjbGJyZHJyXGJyZHJub 25lXGNsYnJkcmJcYnJkcm 6tpmHuR9q5VZF4DHf4UXO vQsPuM8zyoLaiNOEdi3ze LGAoXUJ7KszvOMjusEGjI jYaJ5mekvGeyMeyvqFsze 9uZVxjbGJyZHJsXGJyZHJ cy50uHEJiEuEqedHdBxGs cz4glwNtT4vpikFxRwihu iVncf7iBKofhQXqiiOyiE MoD3kveITSvPB7xWGoH5v 5S3xmbBj0CuB0VWSpqQo8 ODUzMlxwYXJkXGludGJsX QRhAFNmW3OjgZkdLZMvHW bgjJHdTGZfQD66NfUpL6A ddXwlqbWxdMyou7ufdJDl ADikZZOkbVVkx3ZvnHOfO WRkZnQzXHRycGFkZGZsM1 a8tnCnZVSqBQI9LHPnmAM yLKDaY0l1iyGoBEWlOYS4 ZSQcoLEtPOLrF2zfmLHxA PP4NUOuTOMpk33iJROtJl SfssdfWfYusi7iosXiI7o wufLokygcddUevm7yFDji yVWoNSFfEPXdNDFky05jD NAuplRvzLQjhWffkGH2i7 jfHLMoL6hbhMuAgYE9tFY yWwWoL4XhcBj5VkW5LCOf CgCftqDrCyKilw2snqNgC 2qnrwVxlGdzetJitz8kOI ynwWObRUCoAQTgZZLcj96 kKUGcYjLcfxAmSkJwvg0q etCoM2a9MOC9TAq9LZQfF cIiN7yxpVezIBYpo2tlMQ RbQSJ6XxtfSGdegFu0PhE ccGFyZFxpbnRibFxxYyBJ LpSAHvKIWKzyL3JXCcHjD ElTKVxjZWxsXHBhcmRcaW 00QstsrPIuIE1GRP9ZIIK HXO0MNLIRU0oVBAYXAJke E4MceZhcedUmmUdwy7snm PEpa1UntWEiNRWnLzIrQO NlsXFfHXBkT6m8evTmRHZ gWUN9SCEkdPEoNNKfH8w7 uiFfVAKgJLQ4HJFxsHGkN ADjU6jhtCLfLEY7FLCfUS Yyp72pKWIeMaWhrxqrApI rab6ycjUgX3otilMvmfre cdUkil1gYBsqcOJmZGYnA UBvEQIsr07tPIKdzdQdvQ XobGotuQN5s6zjAMYoS7p gcGsObTP4wKPyBqYlN3Kj nZm1AvZ5MDErTjUgtnJrX iAnyl7jysGqA5ddueFbpL ozkdHumn8dSPbmqVXkZNY xGEKwFUBpt39wMAHlJvRh klAlNwSzbi5tppJcL2z4F YG7WDe1YWJfRlNbB8cejS tkVGQbx2owKFMoTRS0Hrl uPTpurRe1VjCkhMNrFSst bnRibFxxYyAwXGNlbGxcc GFyZFxpbnRibFxxYyBOb2 9hGXBlqNwowJ79Zyevqe1 2PKPas7ebBQWsdMXhXME7 O9t8jfPgROEgwFCzuBSfP PDioQXoKPw7myLqKHYfsv HkeGGxMCOutgEpHRq8irB hCSBxBbUqW0cdeqRhwYyq hpDkzc8eGBtboXTlSVOdC GLhEEFol82oFWAlAxTejk PsYlGrws0crbFfK1knqkR gPdispePgbp4mVHiraTJz xlBglHYaR5exuNZDfHZ6e MLgT5j3Y7leqGs5PuA9EQ SqeGg6QMGkWqtoyEPgADG 3LGWqBFLqk25fLZSbBzIp psdlTpAodh5iibLhR3vkm xQkvydmdaNatb4uJTzkmZ EgBYMvXOTbBZArs94dRXC apgHkpTNwmFdtqLF0z2ne XMMrN9zyfNtHoEV0hCGuB HIkR7XfiLa5XNBeWSNtel WugF12VgxisIPzRCrpDRi hYMXioxSffS32SrxopMSn F3Arb4tyDLisGSowfZIxU MFzc4j7av41WEs0khFfWP RmdDNcdHJwYWRkZmwzXHR ycGFkZGwxMDVcdHJwYWRk ZnIzXHRycGFkZHIxMDVcd HJwYWRkZmIzXGNsYnJkcn LaKiEwzb3zclWvX8ifynQ ezIhcjaCqnr8eLDsebFMv KJQjEDBlHEKvf86fOMVvO sDjqyPaHqAjti8tjnJyI2 g1AFF5JTl5FWDsRoTdZ2q bsUobVFLei7amQWEfTGGp XuolFVqqiYPwNrBtZ8dnn iZnnWfqpoScuh4jESxuoL WyBYXlFHGqWJVpw29rLXD hHqYpupSrJyBxev6ohrPz K1eybkMtXlwphkKbot1rE TjouWVepdWivFKuG3rraV PShZS1uUEhS4f2O7uapTj 2Oqd8BBRlxGe9RPMjDpln YXJkXGludGJsXHFjIDJcY 2VsbFxwYXJkXGludGJsXH TnWHoioHTewEXwbNB8MDi cSRowEQdctXOvXZPme2b1 uo46IXukYND1na89PNOyh DOfTYF5L7g7woHcJMGqtF HjqWGjEQNrgYKmFHp9ufO hZGRmcjNcdHJwYWRkcjEw LOu0rvPoTVEeTlVgF4evr kPdqBkpbtTiss0sQKpieN EdJIZoTPUcDRChj74lQBC gCpCmccYkMfZrst2nznUj R0prrzBtPcurawEjst9tR FnueKAzlkGrrMPgZ2vtzZ XWbXT8nQVwZ0b9T9vfkIn 4EoX9BOEtxCz4BQSjDdoj pUYbKHU5RSTrHDFmn59gT YVfQySxbfnxRwJgkr9lwi CiQ8cbbwPjwckdszLdtw7 uZVxjbGJyZHJiXGJyZHJu k07tDUAvuqLbxQQjlFtqz OZ7y4coFYEbR5brbLkNlH V3zPKjMLAzG2DxrKr6LVA fNWZvstFetT32TbxecHGp K1lqYTeaZNCyvkWddX88S ojspCHiE2Mpv44iQESajR pdhL53Rgpoqi28UXPsjyF ccWNccGFyXHFsIENvbWJp abHaPFBnoWDkINGhl0SqK rhvFSWyWO2BTDuoR4BLKe WxCQEWFNX5XBAVUIrvHOR uoZJaXVPjd7wgYCTqaKWn KQS4W7c1hyVcMIJmnDZjw MGnDELzjJTfXBx6poGsGC RmcjNcdHJwYWRkcjEwNVx 4laNqANQhUgNxP0ubbhYo yOrrlfTzje1zUXnhqUEhB RYlLNSlKQYaw22cQAOzQz BdiwPkReBdjs0hpqNvC4c zcfVgBuwbulNtfd3yHVwp oZBgkhUppPLxS3pdfDPYj LW6dIAvY3d1V5sqrHx4Fn TsYNUnmKe2KFQ0WFbckJG bWXN7FGFgJDFxr79tHXUe YiKpjnhsMxIbpa6pqgDjI 8jojmRoxbjlujEjvw5hJK unqQMkDTBsRGDfMJBur53 lXGNsdmVydGFsdFxjbGZ0 y8guOKAiE2rlwEdGiOS1c TTmZLSdS5DxwGs5PUTdHG KeqjNqvN03PdohfCCqDP6 6MAudJ7LyprGqV1KdjZju YXJkXGludGJsXHFjIElud DTcmRGqlLD5sH1pCRIkrC lieU33Pvzaah97AGNzk9q zTIOedBMiDBW8K0g7bmNi ZGRmbDNcdHJwYWRkbDEwN Fi2ppBaJKVdzoSnoVXzFR QzpdWxVFn2hyAsGUDmNzT bP5stwaNahApvhuUhcl2m ZVxjbGJyZHJsXGJyZHJub 25lXGNsYnJkcnJcYnJkcm 9hnxXnV1vnvfBwDohjfcM oin6cNBacxXWrctBiaPDu C7bmeNWBtEX6bNXkH8b8J 2mqrYn2OcDzIEPilLi3LQ R2TYwrxIEwBFU1XVEhPEH gh28qDJQvIdYwedjsJxYx bz6gevHvF9upmhJdgxzfv aYuon5iDXcxxEFnTINmCX ZbPLGdl87hTORyhoUqoJD dnIumqMA0w4ytZVPiI5re bVoYkRL5vZCzGWUhI2Bhl Gs9ZPRtQGVmudLrkS72Oq xccWMgMCwyXGNlbGxccGF yZFxpbnRibFxxYyBOZWdh mSt0WAevPBslSWqqeUFmE KEqk8t2rb95FOslLTD2ax 96XBNcsEXuOAD5X2q7vtX hZGRmbDNcdHJwYWRkbDEw SOu9yuCeXUHhzoXutSKnA BMdqsAgFFh1piLuZPEbWf OhP2djncMpaYskrxGcef1 uZVxjbGJyZHJsXGJyZHJu j92rKKTePiQtkgIgIlBff o1nvqSqW9rfmzCaWxuqze Ohfl7bYVoruHOohmTgyEW cR6fldPERzVD0eCLtL4e2 P2foyEl6KmVxGCKisGy3I QG5WLkjvJUhLXO4WUQcAF Qpt59mZWYcQeXislnxCnY weo7bjrZbO5ojxzZgyutu odOhwu4rRVafqQIpRKRbN VVfPSMrc64wWIMuzlEtxA QsaHzenQS3o8rvCPRlV5t hxZvQsOC7aDJmAHHmZ2Ot yJu6TJTkLZXaadDzxJ27C hbjbIViLqy1NUWnZfd3GL grI7IwsDwoOJRaGTafnWD kSKViFLNli2n5aCZdBYRa zTucvI80Kbexkq52VIHbi mRccWNccGFyXHFsIEhFUi 0yIGlzIGRldGVybWluZWQ fdIRcyxgzTW5fRLlpl9Mf aXgsSPMgf3SxyRSeux2pA XNzLiAgVGhlIGluaXRpYW wgZXZhbHVhdGlvbiBpcyB yZMAzc5UvMLFlxQWtztnf OR8vkL9hjM1nCD88yF2qm YqlEUQlB0pdbYN4ZCJ0jZ PlGKWocuMpKvq2QF1lvk1 tbM5pWGxrME16kO7VMSPa R55dqUEklqObLe1lvLPvU 5cgjlZvNNX8DXMYFMMiMW Ectw18PLPqUMIqhqWxnmB pIHdpdGggdGhlIFVsdHJh NcmwvnJCzki3INRnFVjdT EFCIERldGVjdGlvbiBLaX QgKFZlbnRhbmEpLiBUaGl aFHwtFYNxzN5nuROoHLGq mOwkkANhpbBpqCH1nLInl AelJBShLQb7sOOpHA6wB9 M6lMYiWMesBC1tPFAjZMG 3RXopzI3gDLPhalLat0Dm iNs6WRXzQydxj7FfdP7th otwMtKaXWuqh8JcmeHzjZ e9pqHlwcPwS60cl7gaSBD zYKWdhX0ihF5rEXMxg9Ih HPZbZOAnCEZsCMWahB6sy XBrPLGuyZl8m1VxwOQrHe dhd3XpyY6moukmFHOiUKU yZWZsZXhpdmVseSBzdHVk gIQgCJnjbHvzIvu0a3Mqs 2NlbmNlIGluLXNpdHUgaH licmlkaXphdGlvbiAoRkl TSCkgYXNzYXkuXHBhclxw HCCrQVmenbGmy4VguPAfR B9aKtRjiZCpJx9vyFCvVO 8kBKDqpENxotMgfTTxac6 kQISiSTJdFn6qhXZmoO0q Kdv5RUPcSIUfutHeUzcdF VJbKbGpHKPjIXKip0X7MC 8pTS7mpUGxstJuU85isII uoZBvDTvtL7dalCG1YNbi cHJvdGVpbiBleHByZXNza O3yMPOem7vcbMM9XXywyV JvdGVpbiBleHByZXNzaW9 gASXaXZYgutGktg6duRKv n029jc7zZHRqsxMigqLqR FWxzwDeD03nmNZrzPDloz Tfka30xKviPUu5XVZmROM goB6waGclKJX1FIi5LAMt f45yy0HpyNzfWOCdy8K9F qCxGDhuOXTzi6QrsmpcqR MuyK4fxLJaGWFxGODklUY kKANjQm2khU90meIyFAFa n2KatP8yBZLhEXImCEOKa 4qeSKiuUY5mRTAyDSYdK2 CwLGTuwQselB1alEQ7vcZ bgxDqaJwkMQNsLIXjQ2Vc KRKhK1smnTqtw5NtR2ycp yajRGtgL24fd7uaI5mkhm 1rbkCrC5IwQCRrlG4nVY8 cJSGpk6IcoiiwSx8mBZoK UdCax9QttSNeMEugHAsos mFzaXZlIGJyZWFzdCBjYW 5jZXIpOlxwYXJccGFyIEh ZQr4lW58gnDyehBFqOS5H H0MJVXFMBXhBDrCkHBSEO IKjNOo8BBBzsnXJrnEodU FpbmluZyBpcyBvYnNlcnZ tQETndiKsDY4tfbLwVWDm iPDzbpiiVmX3cIF0RYgsS WedN24vxCykaAAaRX0bZO rxIBAfwA03ULSkoyAlcBG ySmbzTKBnLOJ9hWXkmL0z PJFtKG8kICkgq4Pgm6Jvf ELfs5RtH2EopFXcOOYdei xwYXIgTkVHQVRJVkUgSEV MFuXFOZAARRtaQwh1BDVv zwBFgxYjlUOsZGMaWX4ag BMyCY2yZNN6MAzvsP8jZN RoYXQgaXMgZmFpbnQgcGV fI4ThaJxtpGWlZE5sOMrs dGhpbiBncmVhdGVyIHRoY M6mDPXaZA1iRFE8hI5aBT NlbGxzLlxwYXJccGFyIEV WMJiFB1WVZXUMSLHxCCFL D2MeTFYpDCtltXVzRDGtz qB5cGCqljXjeLjtuWRbJV 1icmFuZSBzdGFpbmluZyB 2hTO1DXxdADZpqQRdRYEw KTAoHFO0LFGhZIIpMN7bS FWsOEOuGMHkSKI0jWXtbH 1zQ4RbITDhnoK1yJDkNDP tGLWbToF5jO9lgmVxYNyh pmWwwrAclKIhyL4gITIcl nRpYWwgbWVtYnJhbmUgc3 EizL6bkvsbcLmbcADqvaI hdkWapmPzIAQiODH9oUVv uF6keYQvlvG5vAUiDN3wC GVxdWFsIHRvIDEwJSBvZi H6iD6edyByCIvmli4ctNY lVQTfpwSLU3RWMFxBWIMC FPQsVIWPD2QvHREeBSncj EXdCPJpdpO0pSHoitFiuC bqtHXqRV2ybnVeVWLmqIC cuukvUeV0nMZ3LNenOONp bXBsZXRlLCBpbnRlbnNlL XBowsPsd1d3bUfuEEofMV C0GPRloMnvrdJpTDRvi8Q ofNLqq5ReO4RibIBfKZOq lgsrQHDud9ApZRMak7CeZ BZiO5VoT2mlMS6qaOJymD LqyZjeCTVDM38pJ0ALUHa 2qYKymJboNUEaz9VpWMBg UFIvSGVyMiBvZiBmaXhhd XojjcCuyuBwBELaucE4gR GxdVWvnSIvXQAsNESfs8Q nEIelsqKcx3ZxEZTyhFYt f0UkLeEep9SsxcSuwrEpo XLxoW8xZqEseJ05pcGma3 HrIh5aySXqaD0nFERters fKhPjd3NhZBWjJrObSM7f QDD1RPPGNJXDgLPla3col 3QsIEFuYXRvbWljIFBhdG cjuJ1rqI9awVIlDUOoEHa wYXJ9 Clinical Information (test code = [id number]) 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] Gross Description (test code = [id number]) r7tcjCZdDOIicRPJUVJ3Z RFoBX0otOrwlOf5eOioGU SdyxD4hTDxOHnuk0wfXNR 7z8kzsgBIGflePWKbGB5f WVkqSYLxOI4qLgHsPQYhR mYxXHBhcGVydzEyMjQwXH IdaHYsbBJ1OVUaJM8krdc gBFunTVweBMWeduX0WQYi tHYqG5MvSVGuYA9jdtswP FF8HJFEOhyiJz6atMFmmE tcZjFcZmNoYXJzZXQwXGZ itHthASQmDMi8bY4TPocm A86qd8L2Rvn8JXIbJQCuW 5BhSW2nRYYcsMFmX94NAg zoOQU5LTUCFpuaZjsdrWs ij8HgqROyTAQlEYwtkKQg NTEwMDAgXFxkYiBPVlIgI sR0VmZ4RxbgIhE8TYe9EQ GSUKUjHln4XJP2NGF7SYj 9ACShVI1uQVofuKRsBSni EsddVHhqI563DXsmQJOeH 0ApV5FbAAvjLeYiBViiYH SoWMJqPRpzZABmQ6QQLAX tNWQ6SsG5VALvPYo4TTfe S0RVHSJwCBUyTyIpRYQwT aT9PVi4YLPRGf3eWNe4VG P6YYNiHUK2IAydKYZfYHB gMiBcXHNzIDMgXFxmbCBc HQ6zjCwvESGpKG6RPCHcI EqjUIPlMyOtY9ZBS5aRQH 4gQVxsdHJjaFxmczIyXHB lbtPLDomzCDEnMQ8ACYIk HRlxKJb7cbDnHOVrLgUbE FElF55xn1OBh3KpEQ2AHG c7zuIupbjlmR7oOGYoglS gDQpcZnMyMFxwYXIgDQpc W5DpZHPrBXOewXFiCKMji QKambVmSJc5PTOgDkZwr7 iqUs4fUUecwLVzs4LolrW 6oUPrERUlmdY7cCIfpGve biBsYWJlbGVkIHdpdGggd GhlIHBhdGllbnQncyBuYW 2vHISFTGLpsZ3mDXVsEEP WPbGdwsTfBtYrVr1iiCRL nJ2bmrEcDE8pWHRrcwDyq 1WvLS5qOQXpd0nqG3hrCS EdPKdmHD00HF1eKUhozsU iahCsQORfq2ovFAYkg6O9 VODmIM4dADueAB9sOUbuI V70HSWiMQ2uW33jQWEqGW WmYAAdULUgXUSgt05ehDb sQWPpDA26WUS7sZCchZFb AKYmHvRleYwsf0SqFoIFc TWap9FsB5xaFW5ntFLii8 VfcSc7pBJtITSquAhlFPy 4TWFzcdQbOGQhXI5dbzMi i3VgqFmdxxVraeTGCSdxS n4msV28lH0rLSJdL4UsL7 drzGJyvEchlu6jrPZfRY1 KXHBhciANClxjZjAgSmFt gQLwR7ArFZLiI6irJN8AS XO6DnH0HdOvIuJqGFp9To NxRQ9tfHYfCP3BMCRuHnP oEJShH0tlSMIsVH9JYDVr MSANClxlcGljTmVzdERvY rR2JEZffOOxYNB6TQ5nlG mbRLUoVKk1VBpvAXBkZ1X cS3HpGJeiEtLyPQfcOUGa PMEkVDjpXBDfI8AUCTQcH QU9FnX2LACkOEu1JMddB1 ICXSMqCNXiXoKsCMD0SxK 4EOl8HDAIRv1vJRu9CFhd BNx0KCD8PLkoXNImQJCdP iBcXHNzIDMgXFxmbCBcXG 9ynZssSSFbHWMlUGB3UQR veOCBz5JvDGPgFBoiG7Ji XGZzMjJcZnMyMCBTUEVDS U1GFxIOTXIfLnVrxJVjUE 9HDILsgfOfHFjegBmthK3 kiRQhE7mdIdObAphgdWqg TmVzdERvYzEgDQpcbHRyc GFyXGxpbjBccmluMFxzYj XhOPTjcKNNc8CzAYPUCtg mczIwIFNwZWNpbWVuIEIg xGSyspWxJWr2EEKiUsQzz 0gcaUFkOZtpORO4aYRyBM FjBMUjVPWlTX11N0KwoqQ tZSwgVUggbnVtYmVyLCAi Ft5jNXlzVpWjVU9wQBO3U JCsZYjdcWYdz1SoGCAlBI For61hnGV6krTaRdVcceN aF7ppPGevgBKip3FzjQDx GCLsbrglmY2hFkKvu06zq RZoQVn8rRXnUZOdagLuLm TtD35mpaXqPHy1DgKrvGR fLyYqgVIaIkfyG56guL0l TYrhxiZrJEXcNR9ySATnJ MWzJGPbXTH0APDwWBttPM 01kePeioDlErrjBSD9RXB qVR1aMOKfLJQxrTNwoQ5q biBpcyBlbnRpcmVseSBzd YJmuDX6MYBahN4pGnDoAr UbFOEseTldw8agRzVBtB5 3db1wENjvGYEhNPomoGOi Y3F3xJ5vAzdhSLTpWGpwd 9VzYSHymDGSf6LmPQ3YZP BhciANClxzYTMwXGVwaWN Vf7NpYLQGUrthBZYrBNZS DAJfqclsUZUnXTTLT1QvR 20NClxlcGljTmVzdERvYz Z9DITboBKkUTQ6SV6yeZc cXXEyR4WuE2OgyrM0GGLn kqEAGwwwEOJaSB8BTAEpX jIgDQp9 Intraoperative Consultation (test code = [id number]) c1shcXXiYCMksAZCVNB9S BCbAS4ywOzogDo1jRolZX PparW2oVGgUSmrd4grBEH 0y7qcwsIKCvgfRCZdBA4c QYgfGQSmMW4xFeGcAFEjA mYxXHBhcGVydzEyMjQwXH IlgLRglHC2TEIqSU6dwey wWMetWWqePDDrrxQ3RAFz kHRoF6PvUPJxPK7tqlpeH JZ4IDMHQfhiCp5cfMGszD tcZjFcZmNoYXJzZXQwXGZ keMzeVSHyULp8uC7XKmvn TRI0RAMBIjcwSdrfsTmky 2VjdCBcXHNnIFxcaWQgNT EwMDEgXFxkYiBPVlIgIiA 0DaG5HeliPyE1BAq7WHWF QEWcCzb8CCD7UXV3QYd1E ZEqFX4nFPtfzDHrVEhvXn hiRTgiR374RKhkKUYjW1Z oO1GxSYqzSqKlXWhbBIZa BDNhVOifSCLoW3BHIIKqV HK4YrD1DPIdYNc1QHdaN9 ZTICIgIDIzMzEwNTQxIiA 0YQu1DDBMSc7pVFt3VTXq VSDxFsR2WYzsZRZrGCQhY iBcXHNzIDMgXFxmbCBcXG 9gkRrlEDHeSN3HLYHoVEi eZMGuGeNtX4HEL7hDQS2l QVxsdHJjaFxmczIyXHBhc pTFWvzoEVHmFY0BVIXkYR ehFFm3fxFiQHErLjVhFFM aE37kg5BGh3PrJR8BLNi6 roAuupahuD0bCYLvezCcH HyiRuQnXPIEWEwdIs0SKD WdP1TEYoXjFFXLZdNGIpD jGiUyPx9GPIMIVJ9RNnwc QklPUFNZOlxwYXIgDQogI GErNO5lITPXJRuTNNkPIF QMXMkKVyQQXpTIYS6APH6 OIFRPVUNIIFBSRVBBUkFU IW5PPfkfKsLRW7AlXPZQJ QSLWSAKW6wlHMCpPCtvIL AoEN7fPq0qMrYCTnSMPAU CL4QUL21fQBRPIx0TOKYS WKyIG07COIOWN4QZWNxlv XAzSH4CSUPgycLDWpYcb5 JvbKSkklNsx2C7GWNjfZ3 zUWUsOYvzhLkgq54yLK5f ZW9zUWKvCEX8LHP6DfavX R4cTUFizsRbhh0nwNehhp TbNsEaZTCcOEFkX9efl3L qtcBifZw7rqXonhVeqUO4 aWVudCBpZGVudGlmaWNhd WuswhP7EBCxaEHvZf4pjX VkLlxwYXIgDQpccGFyIA0 WVGTcQSzfDCUuxASPy5Kr OMckcNJ8TWofvO34sYYxF T7GZFnfuLVyqQXgFZQeCJ VuIEZlbGljZWxsYSwgTUQ gHS5zEQ4eMBXeLv2NCXDs bFHUVXE7TE0uFUegOLYzZ 0ApE7KwtuV7g0pzbItya5 HvfHPjGZ2ndQCnHA7YSCZ hcmQgDQpcZnMyMiANCn0= Disclaimer (test code = [id number]) i6ibgOWlRAJuj9mwXDBru GFuZzEwMzNcZnRuYmpcdW IzKYzxfxEzCStbo5PfW9X yMjAwMFxhbnNpXGRlZmxh mffmVUAnIBK6ytKnIWWmD NfpJTUlGMymQo7isUIzvQ rlMcUdSYRcl7tdcaPKWSw vPyYkN696VRDbAOlbz0ak x0XlXXEqrNLmw3E7KKWJu nuicHf9uPgtN72vs7N7Ii fsH7acPZGtCUBrF1PaFS0 sJVCvZdn0RAQ1LLU4LIPv ECDlT5GnNA1nXVNcyREhY En4j2qbqVpcYXTmNBM9n2 gtMPrjeqKtWI7ctd0wfIp 0l9cauzCzCYYdBMGciKCW DEVcF5FxtKhhQt0htZk2u KqaPzxeNEI1Tse0KS1gxu 49wub3rOakVGOgkkvfRmL 8JLhtKBOebqstAIn0ORjq BACfmMG9ZYSivWPjT5EsL UNuQV8vbty7ZXG3WHsxGG GlJwA2GKGvuHYcTBZegUg cUMluu423TOE9PdXyTZ2l L9Roq2R0sU7zfFOaSWXie ZIwEtAaOCMija1usJInZC fka7ZpIGJ8eoJ1bJXkoOT hGWHvWF37Wkaep1EnBgyn l2JlE58fySW3HYqwe1gaH V8jMoG0kwToGAdhc0kaoU 5lUcW7NNzvLL3tAB7oQPN fuP3ydnaaHLLpHsJvjhfw LILnlHjrihWoPm5byLhqS DP3GDbxN9aotT6bDuD0IN zwU4dorC3xXDg1VHujwHR 3SCJzyI4eSU0aovxkp9nw TOrqDTxaJKAsnpH0ruD8T GOjmYYlO0WunU2fBSGnJL 4ipxqrj0znPNN4WAzqHBL pSLZ8PeDsBWCgd6Corja9 XcZbi5RamQEgJFdvK92yi 865LUVcwaPaT2ioaFBaei cimJJptpcaOYyknnR4MLX wtoMku5HcESZyPFJ1QDho GXehiKSeSLDjzAvmc1baC 3RscGFyXHBsYWluXGYxXG ZzMjBcbGFuZzEwMzNcaGl jaFxmMVxkYmNoXGYxXGxv Z5lhLiUfX3BcLXZlLpYkh QBgC4reHJdsskXjYUEtww RlgQS8ZKgiV4j6NQSrvrP woIe8yrMkJfTaMGWqGMI9 DCbswANlOSEfs6Swdwgys VCtIm2fzUVuDMBjnT5qPW CyHAHxLTbhIV3usGk2MFZ JgYPokPKsZpZYXFHmEV16 ywWrUTXNldeki1K0QLzqD SPyf5YzbOVfP7teq9BqEZ Uyj98uCH6bb5U5p6zsVJI 3YT4cq3UvKAXynACyrEGs CUXyh4Zqnuwka2GxRHQkr rApj4UeSMPepzLlpOVmWS HnfnInon8lliFtHGZoUQR bV8LvalbgoOtfpuKlTSHh mw6ezbKnVCU2DAKVZXRvG HDtx0QomT2boFGDKOT7pC Kfxv8zocEDoHRtVZCqdr2 8PZJcUQ8nX4tdVDXzNGJe baHesLEbb0EkGXNdoNL6t PCvJW2GZbSAj36dRPDbCL DAhuGoONMvfIzjhRZ4ghP 3xC7bNUcWTBFeBcx+IFRo KEWUFTWeOZ1hpsFqz7Fiw sZjzYxpMYUdjHOmg4HquO Msy1WrzUvcm7ZbyYBulYY dJY6fNRCypmjcHVBcAFSX GqJLPWYhdxI0b4IcFULmQ QQjRDI0zCkfyds8XSJddA 5uOFYmB1ozadgaITczICF ex4YzcX8rqOIMtZOrp9Pk pETsbLEBlIBzQC6nytErG CyTRRfVQRU5gbSvPEKeq3 ErYUcgT7ptX14ogEdndFo 8uID6LOL9sK1iNrj+IFxw YXJccGFyIEFwcHJvcHJpY NQbxPbcdbVkJ1MeaqKtcZ 8eoOSampOmKE0lQH9gJ5V 8jOByAZBztvHul6zmRVsd dmUgYmVlbiByZXZpZXdlZ FHek0SkWBhwZNK0MCjlpm BpbmNsdWRpbmcgSCZFLCB XgBFwdKEuTNR8GRmstwWj vzGaKS3oaZ1wnXxdyY2qt WLhtDK1wzjeKABtVYNwtD tvBHSiXH1mjOdswR6oKfO xJyTxVRreAE2dXRFlV2hw xIArOIGjWOCfI4vbOsKdk D2caAfnIRyjCgDtXfHqCS xwYXJccGFyXHBsYWluXGY xXGZzMjBcbGFuZzEwMzNc aGljaFxmMVxkYmNoXGYxX BjlC6hyUtBjY4DaSKAaTb XckNGaH2ptPKhhIAW5ZZQ pWX9vyYQjHV66bOPly0cn XYaqqYpniq1wI42zkNUhA YyspGgsMDQxb41za9OvZY ZdafGpyj0qDJQaxpD9cY0 sZSBzbGlkZSBpbWFnZXMg k3XfISvflZZzjxGhKXvvO CXkPCAweETeoyN2leJypl CknwOyJRNawTldBJSlc2F iBQUjYNich2Fzzl0nxWXl ACNzyrDMxIuzyWVwiO7aX 4FqXPUqXJNlqf4jUJNmoQ 2rEGloq7VnulucAZMfCWZ iFWUttmZhov4zLNZijNEQ PD8ZWYstzDOza8RbcjHvG 1aMTSM3ZOAkKvAdFrjdLP PocXBrkCQqLSWmnb63QEL ryQ9ucPouEEKiyE6puO7t yCljjQ2yWlVdXvNgLDwzO B7dZTXnS5rnsRVkBTWzTF WnU0eeRlYkvX8lpRzcADj nGjCwVuZiLZvdAAP3nU== Embedded Images (test code = [id number]) [facility] [id number] 22:58:22* Test Item Value Reference Range Interpretation Comme nts Case Report (test code = [id number]) Surgical Pathology ?Case: [id number] ? Authorizing Provider: ?Natalie Ridley MD ?Collected: ? 03/31/2023 1517 ?Ordering Location: ? ? [facility] OR ? Received: ?03/31/2023 1526 ? Department ? Pathologist: ? Sandra Tyler MD ?Intraop: ? Felicella, Sandra, MD ?Specimens: ? 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 Final Diagnosis (test code = [id number]) [id number] GFuZzEwMzNcZnRuYmpcdW MxIHtccnRmMVxlcGljMTA 3HVUiHL9lyWxmxIb9wYrg SMRdykN6xTCmKNsoh7dlH BY4z4ejjiouXFJiXJsxDx 9udHRibHtcZjAgQXJpYWw 9yW14PEVheR2fnRJsTEx6 XHBhcGVydzEyMjQwXHBhc GRkxSY3QUQdGX4iliieWJ yxLOchWFMetmW8XZKgaBI nG8PlUVWyJG6zcuueALU9 GDlgSPJhHMA2BeTrYFOgs 5Qswjb0YnAnuFGiXPvyeK FpblxmczIwXHBhciBBLiw rPa5dHx3JBCGxK6SKUgFz EHLXNbJWYvHvObSqCy9XD CKMIR5ILrueT52NCDPVOA 9NWTpccGFyXGxpMzYwXGZ mZNK8DUghpZ5oOgQrZMTp SJ9xROSPOSCDKIKPClBKG YQAO4VORhTAGd0OGSjuF3 5ED6tLUGVVOMCACYUZDUC RMAFNCWOFZqzNWC9xWDZU OGILL15XNN9FXPkxDIEtd JmjBSRqMCfvxG0nLZUwqs emKWSoEGW2NsO3JIFCu4E zyJIpWJ0fAUI0SIQxm06j CI4CGKG7HkU9IgFbBIs6J fSoQD3kkYJtINFzzl23TK I1UeHvf6N3QYToOmKaCCF mKG5aaNvqAORaOQ0yRZFc N7nccJ4zwmk7WkNzJCHiX jW5XJJggfR1Fxp1XREyDS sdj8mey5WbF9UzeYCgkRo 7k2vyOQUpUmP4cIQwHYgz D9nssrLahZXqLOFxXJb2b WauYlRtIZDce4zvsdNvVk NoYXJzZXQwIENhbGlicmk 2dC01RCOebN2abJGxEXut hmTmMlG1DPwkHVZwEaP1M LPdpVHuAJSyY8czGNYbIL cnUKQnJMqzvEYhUIW1nYa lt6P4rPSrfZZebTrqPhEj MfQtLOHLf9QlZLn1cMbeD 7XuBFGoQvR5cKJxEZVuPI heLDVsVUJqvqZ4gZ90HQn nwwT9gSOoc2Uue04bi150 xB3syYFcZZV5SVVgNUGbo TSyQJMpMUS7GHZwhZFpX1 yiYRZkYY9tjywmOFkjWLx fHUExrVO1ECQobTVnN3Rp LQXyQWgmGVUrhtq2PbAsP g1oiYXlcTagXMone1uzm2 mbwCWiQiw1MWGqSbPnKcb mWLfzw3Rnv8nmNUBscn5c NFD5aTSegRxpa2G7jGDvJ EInjRHdexLbXZVuBgK6AP kvXF2vgb21ESHoVOR8eg9 ybGNccGdicmRyaGVhZFxw V3TeLWIxr533DMCrS9PhB BDtt3W1mlYsPgIcFQIebC X3svZ7NSPtTXt2dPZjgoV 9lsHadELkT0kvsX1pGVOn KH6hiogic1vdUMszGFkeZ KVmxEM7zxI8IQCfqPZjN8 QevP3bLSXcAVymYUYldyi 0LlOnRt9egXBsqMexVGif YmtwYWdlXHBnbmNvbnRcc GduZGVjXHBsYWluXHBsYW luXGYwXGZzMjRccWxccGx wlP0pYtDdEaTrOJaxMQ2o KOQfD8rmcWCiCOAmETHoB 3tpXlMkgJ3cwAeqCHsfIp JcZnMyMFxwYXIgSSBoYXZ lIHBlcnNvbmFsbHkgcmV2 uCD9GVNwDUppUFUeUIWdx WOqir4ksAuwXVGtGO3nZN FncmVlIHdpdGggYWxsIHN 0YXRlbWVudHMgbWFkZSBi eSByZXNpZGVudHMsIGZlb Xnwu9Eiv4JyqKB1jB9pr5 pbm4AnSAFsfTE8PX54fvQ 6xP7uPUXvDM6cPQXdKS0e uHCjnYVxFLTbn37rsLlsw yByZXBvcnQuXHBsYWluXG YyXGZzMjhcbGFuZzEwMzN caGljaFxmMlxkYmNoXGYy PUuaT3ulXjUuXlVaMTpxV XJ9fQ== Final Diagnosis Comment (test code = [id number]) s4osyIXqCYIqmHVhCKUtG 8qtjcVpJYSxfAHtV4Fgzh whBSzqDN3kRZ7pnDerqSV wrYOlBUJdQbSri6qzv017 sREtx1ocABKFpprtyYp4c AbiM03fi8X1NwbwI5zgAU YfSTlficPbaoI9JBKszGG pAIh4IBXgeXMicdSxTuYp GAOusKSesPX0UJIjBD2hs vjvWZedLHtoELTpszP0NG PeaNJnY0AzSDVrBZ9cfsv kZID3JJwlQTBtMKT4DfAg GNUtb9Luzik5PhUzbDKqE FxwbGFpblxmczIwIFNlY3 Pgh13zHJNqg9gtZh5dYEO pbnZvbHZlZCBieSBtZXRh o1ZduGzyYJQfEZ1gL9GjD 5eto46uHXqebQTqTYCznM HmlhTdd4XqxT6ksNNuSOH ybsPzZLDvIO0wYXXkDHUc EBodUDZlq19nfnKtqBXdk FYfKLQeTFKzSLQ7M2IngU uqBIiwNhJbNH36jYR7zN8 yXFH9iRAlIS0eqi7mw7Wk vV31dbAeWZCjhUd0UE5pc OCioXReDL77T1nnkKfgIM QdLCRuu8RtE6MeExLbEm0 pdZByxzMlkTPtG2Y2rnYp BMPdXAZck7Jdye3dtQxyt HCavAWmnN9dwCTqJEDoJH Vno52bZyBLlOXwUAMlEBQ jRTC6wK8agUHowBpuWMJc nLyfHWtcQEgpit50yr6zm 8YpbaE8ORjnK9reu00itM syMTeoYNUdi373kAfnWA5 sLJ13Z9hhx7ipRSUqVVTo ngQwttOknPZ7n0VaQvSLE 6L0zFDnMACzgZl3u5ZuDh TlnOt2wsZpKLGzUANfi4K hKQ8xDIVifqfdNDUrBycq sO3mzE9hbWfrkQ1vfPApj GA5ypkxOPSke9CwVYF5PV hfwRinOJV0tO8eZTNfcJt xKSSsbJ4ff6ObKBUiZHR1 xc8dMnCxo9DapSg9dWT1K GZvciBDSzcsIEdBVEEtMy wgRVIsIGFuZCBQUiwgYW5 hALAyNWHcSWrfrLe9EXZf l2EvZ0tnXLkbNMVIIHkfE PQsWGBPLSFsQZ4zUSBzQR Grn0MnnM0ea0fqWyYjEFA 7rIEuypWfglJbeZ0ngI3c gJuric99kVDwKPT7jXLyc eEwKYBuTYTqy2Yzy1scHI 8fKJBwSSIzpSNpgwnygZ1 uXHBhclxwYXIgQnJlYXN0 MHImx18gwyzxwpFcjZ01m a2fhUSbwpQbi1KkHLIrKM Vnc5PnSEXhd71pShtmB2t cQoYiw5r2fJV6sSOiRv6c pO79tP2mYVDea6EpnPNrT ZWsRXVeqGGsWJYlG3McP6 lmaWVkKTpccGFyXHBhciA tDVxtYOGFAVVzo7i6eXQn VHUeXNLfYWS5oZAqj3z3d EJ5DWYthYXoh0UbG3IxkF DcqU4tEFBklRHaexMiaHE jytLbgJIldaqwL5asTVSb JOVwGZsokeYbVUNsf7MhT EPeFuBzCI9lD1axQVDuFF KoCC17UDWdWBmzF38zqVW vbCBjZWxscyBhYnNlbnQu XHBhciAgLSBcYiBQUiBwb 7UcjKh4ZHgjDDJndmPmvN x6YOulzEvfGFUiWJY8qU8 nPRHfvJitVR6xTDWuWSTn TN76R1naAVRmn2ZnbR6rv mdccGFyICAgIEFsbHJlZC HaF14uLDO2MNibAfA0FUq ccGFyICAgIEludGVybmFs HBUtmxGns3wcI0QfpOJxX PMnJR66PsjuDXOzHY2aPE JpCWUlTRAycbF7QT9pQ3U 7gLPzRNcxYolxVLRxFJ4a GEZ6oG0gUEBetVwvCU3mr ZMrLF9jvLLmd2EyxJ9rjr dccGFyXGNmMVxwYXIgQWx cHVS8eLSuieMrXSApqkVb u0nrIOByd7wdODRrbi6ej wlvsBBdrsJxR7Ouxwn0iO 4gXHBhclxjZjBccGFyXGZ zMjIgIFxwYXJcZnMyMCBF Vz4SChAQqYJ8tMVwdVRuT WZ4ORYsdH2eXOK2g5bdGu RrnrHguP96ng5gksjirYF 1rILpOWGtPEiaf2y6eFLz k00nY5arpxCrOWEtpMvfe 1TxOFXiVPUIDTEti74jXG PRZBVfwrWdFRTmM5hmczQ sNSUaBdAZPSXoWTXfjr47 ZWQpIHdpdGggdGhlIFVsd JQfDqzyorWGynd4ZAKgVF wgREFCIERldGVjdGlvbiB LaXQgKFZlbnRhbmEpLiAg PUOgmu5swnvgzRNjiwZmQ XKfcnSyVM9wMJOdq3p8cP OiWQZldrWlc5hyOMXjLSW 9y1VlXtWlOAsfUPLalvLa qy6ospSiGE2uDYXysCNuh SGlpRSlUHBnRcVvpyW5FF tyCOT2BBHwVOFwg4NpgL9 bSGZbJMBRNX0WS0RFTZz7 aWRlbGluZXMgdXNpbmcgZ y4ydGRnnO0cEqm4FIGdcB PwVFHhbG3qRO8rTXEzBAN jq6MqzSjwkfUfGLPmwmmf YXIgVGhlIGNyaXRlcmlhI JCxJAOcNi1gHFNjlN9haP ysVbVWAt2DSiROxD66lu2 tfLKttIZ3qcudywZhbHb8 cjOtyrVatW3qRANvl7DnJ B8oZUX6jVFzVCQqONKRUC AvQVNDTyBndWlkZWxpbmV kRnshNLMdtBHpITHaq1c5 bPMmTLyyDSE1AJSutEqni kBgumOeyTSwhSN7arAfBC wgbmVnYXRpdmUgbGVzcyB 0aGFuIDElLlxwYXJccGFy MEYomHPcCJPAZ56wHQvzk TAvDMTpnkw3pz28NDd5di BhZGRmdDNcdHJwYWRkZmw zXHRycGFkZGwxMDVcdHJw YWRkZnIzXHRycGFkZHIxM DVcdHJwYWRkZmIzXGNsYn MlioQkEzBdts6lwmZqH4l hogLsvPnfjaCtuh1wTZua aOZeGAKrJIDwAEYae87oB GFePeGctxHbPfCkqu5tyq GpG3p8LDB6TNt5TLRmEpM aW0nvpOdaVSJhe9tmEGOr NLF0IyqiTHixrQZrRzHfL 3xtcnStyRwzbyRpit6fFJ vmfVGkRPDiHYMwSIMqw37 iKDQeOjNxgfSeFdEgoe0j qvBqO1adveQiCmhyxoVru k2vNMmgaQLcxoWalIVdH6 bhuXNUgUX9cGQoQ5f4F7z nnSo6SlH4QVCkaCw2BGSg MlxwYXJkXGludGJsXHFjI MOJL4HKSlJQF59qA5IUGe OnYXTSPQlaF5VsrZfcTEF kXGludGJsXHFjIFBFUkNF TzMSN5KmEV9YPPTUKaShE 5SKQJIdJ6FiuDpahbQvoB xpg6mwkRUax9CnhXLsNKS vLtMvEISezSPrPRDyS1y1 amHeWXWkJWE4JTBkqBNeV OZwN3x9suEpMAOeTYB3KX VwvVWmNMSwA6wqoQZlIRJ 2YIVqBLIsy78bODWhKxMi rzqmMyVhpy4cfhLbN1hxg hFxxumxxrMewy4zXWljcU FeLHZmSALjLGYxg15rQON zykKkiNWlcPfjrPN5i1qe BGOwW9tmjHmLcCU8zURyT aFiX8YfeBj0XrN4YPBkEz YygkQdZzBkjl1gjrOjK5v lmdBznRcyvpYlhm6eRTvv xLWtLWJyTQRuPTTtt18bX WEtHwTbueGtRqMeif8okj BgF3k7CIC2QCh9FKAqErZ lV4bptRjyGTPcp4gdXBLf BFC9IgzqZNtiiXu0KlAzg GFyZFxpbnRibFxxYyAwXG NlbGxccGFyZFxpbnRibFx tBrAgQLKhiLnxwN47Jthc ip60FMLmu4ngBDDplAXbA JC8G0k8vdVjJZEtzBVmkN ThLQBevZHdJOe2dyEgMVV mcjNcdHJwYWRkcjEwNVx0 wdLjAEQzUxFwL5gnzySnx DssbyRtsl2nYLjetNAxIL YjBVAuHFKnj31nGGKcSxD tspFqYeEsnv0mpaHyI4sj emDeEzsgyfYqsr5wVJlvv ZKjsuVxdGKdB7hocSWZoI G8kBMbK2o5P7bmfMn4PrU 6LULetHy0IMH2JwlkrWLz XUO3OZRdVSGwt29rIMXdM rJidoonZqVheo7civDeW2 sghaIhjhmrvhFhmx1fSJa saSJaXARiOXEtUQIij57i DMPuhfElxTYddJopqJO7r 9jbZXJpO6zrmGvEoWG7nC RkNiFyU6QdrZh7PLZmPON dieFxdW11SedcpAHqYWwj GGowVRSiycMzqV76Wtjvj KGwPTWjNIDsrIdkuZ25Ri kcnn24RDEpa3irCIBbvSU eDEA8F5n9tlPbUDHizOHl oWIiXEIxjRQkVUp5qkMqT GRmcjNcdHJwYWRkcjEwNV c3uzWhFOXhCaLaP3cwueT tgTgahrLqjs4iHLgmxKOm YZKaQPRhMCEor53sAHQuE fLydiZeOzXexs2dbwZyU7 solbMoNpsycaZfqq1kNSt icEXxciUoqSYgC0jfuWKL uFH4fJToQ7s5W5zyhYi7F yM1NOYsnLc3IWB8OmysxL QhWAJ6ZVRtRHXgp91aVKW bZgSixbfnFsNsgk8hepEm R3uuijQrtnvbvxFpve6sK VxjbGJyZHJiXGJyZHJub2 5lXGNsdmVydGFsdFxjbGZ 9s0tcODSpS9qxiFqIoRG2 rBXpJcKxF5YucZk5AQPyH JVictIgbI03OsmqpDTlNg mfVFsaYHGiruMktE78Aho fcORsON7aWVVqH9YzvAlo fcRjrWzbl0qehSGxl4Dcc HJwYWRkZnQzXHRycGFkZG InI9f3grMvATIkRFF4ZVN vpLXyMSIvT8s7rjWeVNAe IUB2INEusCDuQOSnD9awp RDbLSR7XXBfDTIoa86wUA JqJySkvwtnBqKcrg8thyY iO4bztcZqfwgkmzGhku8w ZVxjbGJyZHJiXGJyZHJub 25lXGNsdmVydGFsdFxjbG K5q3ryZIAzV3bknHxUdUE 4kRRrRcGhV6IrtRc2RrA4 MNIxXdDpzfAyRaKjrl8fi yGkZ1tjhxSvyKlnpaUjdh 9uZVxjbGJyZHJyXGJyZHJ tb69bAUEpMpTvymPmZtEy vb9zoeRyS7b4GXQ4JUe6M VZyFiDpN4zvuBbnTFCrs7 btLJHcADU9ThtkZFrhtCy 1MzJccGFyZFxpbnRibFxx YyAzXGNlbGxccGFyZFxpb aLgkJjyPvPdOL0iMzJnF0 BbkMiaofXrpMupg1bmoYT aw4KugNMbVBQpWnSkYARm gRLpKXOmI0o5hnYkKDQpS UN3PSAiaWZbINJmC3u3wr CgANYxKJG4DOQouSCmBUK xF8jlaBFlUFN7LQBzALDu d89vHUReCzDtqhajEcVwd z1ommQoI4oxgtQdabhemr Bvsm6vRVaaiHJiCTExZKK qOZIlc05eDVLkzgFcvHHy wJnonIL0n6kgMNJmD7vxt DlHuHB9nHPaEnBjB2OgwR i4XeQ4AELfZoTqbuGkMhN iql0hkkRtK1gqswRggGok ceFnhi8hLVwdmKQoTZNiK PToXWAsb93aLTOqRtAzwk UgLbVcgo0tlkBcX0l8FSO 2IZf5MMLwYpRdB2lwrVyc TAUcl3ccTPNqQQQ0PsibA ZioyGq5NnThvFQqOAmbky VewDpdKxJ2KKHfzAsegRU fQRsetqUgzRiwEmCpXh08 WsGhI7ZneNbwbiRcvSfah 2gtkXRaa1OuuUUjkCRqy5 n2veLzPNWkiXNksAYeBDE kZmwzXHRycGFkZGwxMDVc dHJwYWRkZnIzXHRycGFkZ HIxMDVcdHJwYWRkZmIzXG CaSnIywsZxOgYjib1vylY hK2lyzzCiqSkvhpSsse6k ZVxjbGJyZHJyXGJyZHJub 25lXGNsYnJkcmJcYnJkcm 6zjfLiQ9x5VJP2RYq4LHG uWwZtC6wieUmoYGVus8et RHBqGLZ6IjleDAowcMCiO yEhX5uxnpKisRdtyeOhfk 9uZVxjbGJyZHJsXGJyZHJ jd93fTRXcOkKhwmZpUeIr cm1lbdNmF4udkbLjWglbc aSrub1pGBkuoJFfbsBvuU XeO9wnzZZXeIX3nMWkN7r 1W2mcpKr3XbV1LVParYo3 ODUzMlxwYXJkXGludGJsX LCzCMBiG1PnuUoqKYXtUQ gosLRkMLHcWP81QpWqZ2Y fhNgeaaCzzTgbw8sxlFSh FZxwRZLpkQUkk2BqtIZuQ WRkZnQzXHRycGFkZGZsM1 a8lfQtHCXrTUS7VABowJC wJWYvE6m4tmIaETTdJMV5 GONohZFtGHVeU5cxrRPxD WF8OHXeBAKiv37oCLIiIz EukolbQeVmtl1nmuGfA8b gtyCnaolbihSybk2xXNot nZBnSTEcXKQxPXNwy86kN ASzuiHgcTTluSiclNQ6s0 oaLRXjS0glfHgTpOD7xVQ pOsOeD0KahCt1TeT2WCBf CzFqfkMdTsAssm2ngiRkQ 6yylxKjfUseguSjad4aEW glhTUsYVPoDVJvVETtx78 jSICvKiLmlpNhGeJedb5q lyLhX1u3TOE1PQr4GZWxW bFzY7fxbUzvCGTco2qxMC JxSIZ2MveuRScooCq5WhJ ccGFyZFxpbnRibFxxYyBJ QmIWFrWIKDicG8CPBjRcW ElTKVxjZWxsXHBhcmRcaW 51IepliDLoST2QHZ7WZVW UMN2AWDVCE7lJSYKDQIyq W9YsvZasdaYozOgwh2bbb ADgh9XvgPOnLUWtRiPwUB ZkhJPpENUtC2u1fwQgHBC fNBS5SWVjrXLsRKFbE3l2 pmCvHYIwVQZ9XJHljMDrF HQnT3cvvJQdXBB8WRQdQQ Qcl86aZBFsKoYobnqvTpE fyl3dcnGsG2ycihMpjkdt tqKpni9hQJgykELzLAYfG HLuNRMjp85hZZYobbMtdZ RgsMkwkUQ6s8dxFIWaK0q srGdRlES1aCMmUvBlL8Zt wOy6NbP0JKQnAyYgszKaB oCfaf1sgwMaU1nfmwLmcP ktthHxyk8zAMsklSAvDYR qURLcZSVon58bBQXyBsPg tvPtFjRhdp9pnjWbO7f5N ID7MVf1RMUwTbNiE7toeP dgERGpg6yoYSUeKAD1Csf vFLawhMq7GhIzcLZcMJfi bnRibFxxYyAwXGNlbGxcc GFyZFxpbnRibFxxYyBOb2 8uSJPwvZhibV77Uxdomj3 4VVHyt5ymNNXxzKDfESO6 V1a6jxMvZIAevLCtqCFyW DIaiKZjGSi8sfBuVSJazh CvkXRzCYBsywDcMOh1xiD iZBLxHcIzA9cbzlYjwXka obTnme8uDEatxLPaUEUxP IEdKEKve90cBOCxStNavz RcSuLxmj6lorMnH8lgqhE tDhmwmpGjsy4cOTwcbEDt nvWnvAFdN5bvrMBGlHA3c RGuZ0t9U4iowFf9AoQ6CZ ApaOd5ATYwIwvisVLnKRU 9QHHtRQYzd88uUPMoVeZk ssfbEtFoug1hpxYaZ0fmi eTlzxdpugPwqf3pHFhxtP KmJWHkIAMjZRLpa12zAQW vmqVdbFXevCnfmXU7e7rz ZMOnV5gdvAlDmZY9mZXtU VWkY1MtxGk0OIYxNCNsfx BkeH72ObkxqJHaRHwaICs dQKUthhCapM83YevwqREi Q8Tld5uxFDesFCpkfFAxU TZql1u6pd55SLi9lvNyOB RmdDNcdHJwYWRkZmwzXHR ycGFkZGwxMDVcdHJwYWRk ZnIzXHRycGFkZHIxMDVcd HJwYWRkZmIzXGNsYnJkcn WhPmEnrj2nunUdU5unwjP rwDlcjfIecs7sHRthmZVu IBCeTWPcPBNdd71nBWBhF dEiubZfEtDnoc4fsvZqX0 y0NXO1OLb9QKOsFpHiD7n ufAuvJYNmo5slPMPwPRVj CrzhSSecmENpHiNhG3ilj hGtoIiayaPygn6kDJfmuL SjPTIqMJYaGLQee37gCHE dSuPkybLtUxVguj8iphSu D6ixttGwWvpynnCjbp7rI BzbgQDahlNbzEFzH0zcyE PRzYP3fDIdJ0w1F0uqvNt 5Iuj5WODmeTa5NECfJzbk YXJkXGludGJsXHFjIDJcY 2VsbFxwYXJkXGludGJsXH SfXZkgkQProSWviIE9ADv rJMcjUJulgANbMVJyv6j0 he73HCzfGEZ3ol19GIXxx JPmKKY8Z5k0jsYkWYHgcR BqlAFsWDYesLLhQTy8doH hZGRmcjNcdHJwYWRkcjEw EBm0ohPfWIWhEbMbT3tzo cTsxIfjgxDsxb4oLXtthY TkIGRgJKXeQDYqk78qTDO gFvJpzbKtQgZini8jpqOa J5zphyEiWhpuqaKmmq1lY YaaeADcbuYzlGLpS7ovdW MPtGW1xOIjB7i9T7qqwZg 3CmI3KYEfgXw9GEUiBcoc xXMhORR8MGTrHWKtb65lN CEpQcHevhnqTnEnld6wud OvF0dldhFjnwuftiTtpv5 uZVxjbGJyZHJiXGJyZHJu x71zLDRzfbWjwXZrjTcqq VB0q3pyKXVoV1cihGxZlL S3rPLtKUKhV7YnfUh0SYU qYRBuxrQafT10FqubyHXh N1dgXKziTRXiioPkvT42T koiwJJqD3Orh45kTJYakC vakX15Qtpamh19FLGekxD ccWNccGFyXHFsIENvbWJp thBtHENttHNqVHLss1OpU ycnDMKcYV9TJTemT9OLSj HiDVJCUQJ0DUAUZTciDIZ aaKQqGOAda3uqLDJceQNt VTH6K2q7loFaIUGprETgw PCuTSFztCHzVDt6vxVzNZ RmcjNcdHJwYWRkcjEwNVx 1jcUyVBHkFlQcL3lxsgRs pCqqxcNuqp2uJSikqOXuW EGtCZWjCTAip79aXRRkVt YcdoDiYvPckc6tehEpE6t fgpZjHzhxggZurt6kXOtt hGEqpaQgrRSpS3ervPTVz GA8hHIsT0p2H2jlbCo8Iz DzNVLraDe4OXH0CImpcCP oJAW3CBRkPRFyg43pWKCx KkQmtexwPcIydn8aedFiF 5ehwsPkqctgieUend0cCT osfALdBHHiBDLuPOLkz38 lXGNsdmVydGFsdFxjbGZ0 u1fbNUSgI1bfcMtKjRD7e LUnEUCrF7GisFq7EKEyCJ CtzoNaqL39ZlfxnJQjTC2 9HJqcP7ZmgqBbY2CprMhx YXJkXGludGJsXHFjIElud WEibVPhkJL6vJ5iPUWovX vsyV85Rrmfyo66ESZuj3a uSIZkuWBfEXQ6O3o4yuOn ZGRmbDNcdHJwYWRkbDEwN Er8kkFqPRDjpuEbsYHzXZ HtlzCrELv0ztKjQEJpGfX xR3qcunBtjUpavwDkdo3g ZVxjbGJyZHJsXGJyZHJub 25lXGNsYnJkcnJcYnJkcm 6fcvQnD9dpfpAzActodmQ jmn2oBKjlfZBnofSccKLj D1bqnSSGtTD3dTCgH7p8A 0kiwJz5ByUmPDOoiNl3JU T8GPjlxTRvEKB5IWRbJKC dy93sSYXfIwOrkvfkKvUh sy3draHcV7uisiLobqpxp fAlyo0pRKacaNBzXJLhDO YxXBWka78rUXJiixWmhCA mrRuevAS3y2ceFBEdU6xa vBtGpXT8bTPwHTVsZ3Obt Ki3GCXpXFGnmkSagQ72Ud xccWMgMCwyXGNlbGxccGF yZFxpbnRibFxxYyBOZWdh xJx2GAcvAOurSPqjmBBeX MQez6z2ko84MMwbNMI9ln 02EPDyhWYbOQX4Q3v9imF hZGRmbDNcdHJwYWRkbDEw XCz0gtSyKQYudmMuyZEmZ WEqikWsLAn9yiXfPLQnAp WuD0iyxhWamObivxToet7 uZVxjbGJyZHJsXGJyZHJu a89yWGKrKxWtzaRuTpHxi i7wmuQhX8ggafMeFhsedo Xijd5vBZgwmMMyzfSlmOQ pK3otxJOFgTO7eBYzZ1d1 Z4iakFf9FmNlXTXllDb7R NW4QNmgwRUvSOC6VMSvYC Ria09hHFUxTgOfotwyGhK xzk3kvrAjL3ayntWsavku jkQrqu9yNBijkJUvUGBrZ TJkYWIsl72dDKJcwfMncT XhxZtwzXM1i9uiLAHvR8s ovElDjTM4gATjLPLpW1Zu tAt7OEJcEQNtjtHflO80M pgvsTWoFrs0HSKfHpg4OP zcV9WfwSmgRAJtCWpsgXD vPHYjELUmd4s0lNSzIJUu eCaerA87Crrdsf76NLRqn mRccWNccGFyXHFsIEhFUi 0yIGlzIGRldGVybWluZWQ mlVAwnolpDI8qKIzox3Qh dWeyETIei3ZcnJVwxr5lH XNzLiAgVGhlIGluaXRpYW wgZXZhbHVhdGlvbiBpcyB uIPYzs4OvEKLtdGSmdvmx TP8znZ8ybV5qHC56sE7ce GkcETXoS6tlnEV9XHM9uP GqQJEqigGuCbf9YU7bmo7 eyG7mEJmcOC31rM5XXOBr B67omRYuibOuEq4ooQDbS 8ovwxOcKCW5XGQZZTKdTB Trty49YMVvRJIiojIsdcG pIHdpdGggdGhlIFVsdHJh IvfmemDNsok0EZMdALgwA EFCIERldGVjdGlvbiBLaX QgKFZlbnRhbmEpLiBUaGl mEYfoHYXslB4xyPTzQWHm lPacsLJlnkNjcAE9aUHsl OioLRQfRXj2nMLtUQ7pY4 T8wRQzUKxeWJ6cZIAaGVI 6RAlgpF0sFCHeeyZqm7Vz tWh5QEUbJywap5FvbP4ph lxyNjZhAFycz1QnabTrhJ f7ygEnxyBoR91ii1dyGTT gRJXtrJ4hsB5pMHDjr0El IVRxXEQiOEThFXOpqC8vf QGiWIIejSr5i2EtfWPaJp ghb2SobV2rodicNCDiCNY yZWZsZXhpdmVseSBzdHVk bOLwSYthzKclBbw1l5Yrt 2NlbmNlIGluLXNpdHUgaH licmlkaXphdGlvbiAoRkl TSCkgYXNzYXkuXHBhclxw PJFxXArxquBvv2BmrDOtI J8rJjNryUCcSo7ucXAfNU 1aJBNqgNQlliDvaNXopn6 mMZNcNSYqIq1nzLAzeL9s Hql3KUPbKZSjlbSaAzyjM DHwZqTrRCZtKAYjd0F3SX 7qCT4mmBZbknJjZ37wkRS liYTuSHwrM7krrWQ6TTze cHJvdGVpbiBleHByZXNza I3zKUIsv5cvsXL1EOveeN JvdGVpbiBleHByZXNzaW9 hBLWnKQQyisRaxa7xpUBg v809hp8hEBAubdUxgeVhE XLuqxSlP85nbRDoxCAtxj Iwzm58iLvdNNt9UJRnTYX biX8ocLibUZP8ALa2NDAn u96ht9BarYfgYSUyd5W2U aEkZOceUZNgf4AvibymxE EacT3mxYEcCLGlQSRgaMF eDEBkUt1kvB51gbScYSKc x7OouV2dEJPvDXXxWLVFv 2kxCNsqTJ7nYZPiOYCeE8 IbUBScjOfdpL2beZO1tjR httXtcQzeXJMjBPEoE7Vo AFMdL5yczAnwd9EoR8beq bfvFNiwX34rc1crU6wjbc 2ssvHkS3BzAQJqvH4pYT1 yTIWoc2MrntotKz3nBYtU QoWjy5OagDOzJTqgDJddk mFzaXZlIGJyZWFzdCBjYW 5jZXIpOlxwYXJccGFyIEh DXz3uM92enUceqTTsVH5O E9MDOWRTMKyEUrYtWIKLO NZrTSp8YVUsynUGshKhdL FpbmluZyBpcyBvYnNlcnZ sZVVnppWdVV8vhfKoVGEu jTBaqggzLwM8uHG5MRmiF JjmG63xaIuetZYsOT4lFP ehQUPvwF82TWLxhtQgxNI uGpbdHDLoJOD4pYSljF1w RQFrHV3lTNvek8Del2Sug QJek8ByZ5CrsBGiFOBmsv xwYXIgTkVHQVRJVkUgSEV YYkSSTZCLKRcxRrv9ZXHd vvEGvlDdsTGaWXWbIL0by EBxCZ5wZDY1JSzzfP5lRQ RoYXQgaXMgZmFpbnQgcGV wM5FmfCzfyUTzEO1nLNzk dGhpbiBncmVhdGVyIHRoY E0vSQZuUF9hEMI1oG1sNQ NlbGxzLlxwYXJccGFyIEV JDKyIA7ADTUPXLQZzKXZA R7BeWZMkEZredUGsRDKva sD2gOIpyiGeiMcxvQIsCF 1icmFuZSBzdGFpbmluZyB 9dUU3KIokNYJchDYlAMAy SCUcZWF8ALSkZGXbDZ0vO UMvHDMhYMGdMEN3hFBjhN 8jQ9BaVEDfiyP4gRRtZWX eJRHoUzA2iH3wdhMzARsw ojIqoaWcuTRdsY0rMMMyu nRpYWwgbWVtYnJhbmUgc3 QvbG3enpeetGxozJCedoO gpiTbhrQiABGfXLE4qLMk sG4nsCCqgqF9oQCvOH9lF GVxdWFsIHRvIDEwJSBvZi V4hM3qucRqHQeiap5ihVV jKITdqkYBH5UWXBgPOGQL QFOpZYBQR8BxLRPmVWcfj MFyZDLwbqZ0eWWvgjLpqF hdwMJqMF4fclNtCWUjoBA uybobLyZ7fMB7UWzfNKZs bXBsZXRlLCBpbnRlbnNlL FEqkjMjj5o9iXhwYAykWS K0XLQxzAnaxwPmNUHnh5Q fzSRhj7RsW1QtiKQcTSSv inzpBJJnq9AnXRSyo7EgW FJuB3GiC8cqNW5inUTizS FqhXpjBNPPQ39vV4GRYFd 8rOOwgFqmRMUki0GqCJEm UFIvSGVyMiBvZiBmaXhhd TyrmlIysfOyPEOcqsJ4sE VsmFDtyFYbGKElELWid3K jZSehhnUba7UxSXDckFOh w1LgIoXvx8HhqvAuqeQnk SNisN7tOvQbdP51ulFrt1 HgLj4uaNIvxC9uOQTavfd iXdJkb1TbVHQeFjSlXC0k LII9ERQNPTXQfLIxw1uyw 3QsIEFuYXRvbWljIFBhdG ksxG8qzM4rwQXlTAHqIYe wYXJ9 Clinical Information (test code = [id number]) 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] Gross Description (test code = [id number]) q6vayTEpHSBcyPILXYL4A VGrFM6wnNlotOz5hHolIU XkmhU0uDEsUQtyh4shQWV 7r9slqtBNBisbOHRfIF2a IPzqXJRuMM6cYaIxFNLtM mYxXHBhcGVydzEyMjQwXH IenXQpoPF6JHYfPA3akrc oXGfxLIdpVYNllxQ6PSAb bHKlB3GuUOYgMX9ojhinX AK4CITRZtqkHl8aeNMlyF tcZjFcZmNoYXJzZXQwXGZ kaKiqSEXuPLh3xI1CVqtv N46ez9H9Lin8SNBzFPMfJ 7YvCO5bFIZpyTKvV97DMi raFCE4SBIPCyijNiptcQk rh4DooHIkWSBvPQpugNHq NTEwMDAgXFxkYiBPVlIgI oV9FlR7JaxsJwP3RZe0ML TQZAUfBlq3JHA2GLY8DGw 6VYAnVH8uIPjkeZTqUNtd WnirXJkgZ238IVsgKXTrC 0JlI6IdQFvxYqYsLQxmTB SpLDRuBQhwEAKqW0CHZBV iRVG9QkK7SOLtSCb8AKzn C3AVZFKfGTQgRpGsNHAlV sU8PRy0MLJNBp4dBWo7OC X0KHAnRPQ8EAvcIJGxZGP gMiBcXHNzIDMgXFxmbCBc VE1tsCeeIQIpQI3ORSJdK XmuDPNyEoDzK8LFK6mFBA 4gQVxsdHJjaFxmczIyXHB etfOQUqggTVQzFB7FYZYg UVlaRQp5qhPbTTOxIpIoT ZBvM48ct2RUx8IkAV4KGO z3fuYoqnqddT5iVSZsfnS gDQpcZnMyMFxwYXIgDQpc E7EqTXRzMDTuhWDfRBOlq MJebtXkFBr9VIIlZbDtf1 sfQv4vZTfwnPGfl9WgarO 5fPCcVPHjeoB5aGGthAfu biBsYWJlbGVkIHdpdGggd GhlIHBhdGllbnQncyBuYW 2oSABUUIQncK0dXIHoNRP YPeBznmVnHfWhCz0riCIE eP2yujTdYW0tEBNfnsMhg 0RwXA0eCIPug6dnR2mwLQ AnLFeeUT09XE4rCWfkbnT dznVaPDQpg5yiXNRld5U3 PWVyTT9wUOpdBG7nLRuoQ W26MLDwGE4nM38qARCcRJ TsJRTzUCIoVKJsn51dtUo qODRaQQ40ICQ6kQGfqCHp LEGoJwYzeNgrb8GrTxQIy SUtw9MbY4tqMI4ttAVlx4 SalRv3hBWqBJNloKsuWYp 9BRBdwsMvGJTnMT8zxtSh z0DkmVwysvAfsrOFDHpkW d1ubB72qF5qSHNmR0IfW2 veaEElbAoiha5izCBuGI0 KXHBhciANClxjZjAgSmFt pIOhU7SfYAGuV3gpYP2TT XF1ZjB0TwQlVqPzGUp1Qu IwYZ9hxUFdCD2HMTVoXsV iFKJqJ1inASVhQO9EASQq MSANClxlcGljTmVzdERvY wC5DMXhfUHlQCW9DA4pcE qbUFEzOGc4FMfoCYBoI2L yC1ZmVQsvKtMfXCvbRKSx RIYfXWzpLEIjO5ZDVIWhR HJ7BwE2RSVmKUb0QQcnQ6 CCKZExOSClYpAaEFZ9KuD 2ZUn4LNNYZa9cFUm8GOvd CWl2EWE9UIbsXLRsJXJfH iBcXHNzIDMgXFxmbCBcXG 7jlCmdQNYoLZScJRL6WZH ewEXWn5FwDGKhHGhoR3Cf XGZzMjJcZnMyMCBTUEVDS R9TLcDGPVSuNzDgbKLtIQ 9RCZRnqmEoPNsgfRljiG7 ezLXbS7vkSvGuVxszoOzp TmVzdERvYzEgDQpcbHRyc GFyXGxpbjBccmluMFxzYj WzTIEpgCXVt8RhYEGIHaj mczIwIFNwZWNpbWVuIEIg tPTavyTpTTp3IFZxErCmh 3zsdQEkQFnrUEF3dQJvYL IyFGYrHXYbYI05C9NmrtX tZSwgVUggbnVtYmVyLCAi Pt0fWZrrMeJdUQ6oOEA7C OCqARtekJDon6VlEENgWT Vml38cgGV2obXrVhGacsH bX2xrJRubdHOgh5NtzAZg EOSgazwnaJ1eFaLtv78so GMkZQb2xTWjOUHsrxCxDp KzV81djeOiGDm6ToGlvQN pLmExxHAmQnfrI79yoF4k KKflyiTxTGFmOI5cNCTaS CQmKFFlHWN1OFNzULacXQ 75knQmzfIhWkskLXZ9WWM dYB3oTDKvARStiIQukX8t biBpcyBlbnRpcmVseSBzd ZEnvZX0HCFosN1fQvKtPc KhIEVjxHprc5cuBbROoG9 5eg3uMWauXLTlIZrnfPVk P7A5wL5eQijpTUHxRJnsj 1ZhUTQrvAUXp1XkAZ0OAW BhciANClxzYTMwXGVwaWN Yi9FtFJOYHglvHQRkPZST KBQgiajsXRFnAYPWM5GnK 20NClxlcGljTmVzdERvYz H2GVWrmFQyDJN7HQ0ubSe fGQApB8OjP1VwdhU0ZWVv gbUVWvmkWIKsGW3TNDJzD jIgDQp9 Intraoperative Consultation (test code = [id number]) a2vauVElMKFfpDSBMWP9L SDhKC6ebQrofJn2zYkpNG WgksP2uFQoWMsah0dvGBP 2j7tadbLWEoivHKEaCR6d WEpbOQLvIM3bAmBsJALeO mYxXHBhcGVydzEyMjQwXH YzfVXllFG9SPTfNC9nueq mJDjdQLcnUXDibbY2XXYs aTOlS6WtGILzUO6vqkhuU XZ6FIQXNfdjSv1qzBYxtR tcZjFcZmNoYXJzZXQwXGZ twAtvKMErZKz3rV3DYlfy THT9KCYWYmovBxhhpRopr 2VjdCBcXHNnIFxcaWQgNT EwMDEgXFxkYiBPVlIgIiA 1JsH9NhxqDeN5MCi7TOVY KXBsWki8NUT1LWF7YTc5Y PRfUM0cZUdkuSCsJFmzDk itJSdqN790PDbgXTEdM7X iV4NyFDhpTzYpHGxjEHIv BNQuGDxuRCMnY0KMMLUbG MS2EcM1IHBzBUx5YGznF9 ZTICIgIDIzMzEwNTQxIiA 3EOf9YSVIQp0gEXi6SEGi RXWtQqQ9HCamVQYeKWPvQ iBcXHNzIDMgXFxmbCBcXG 3hzGakSAJpAS9JVIDdTGb jNRIlBzWcO9ZZK2dJPV5i QVxsdHJjaFxmczIyXHBhc tUFXgpjLWLlYF3NEPVvDQ ysZPw1rhQkMFQdXjJyPDK rL78xi6JWx0BpHI3CIAp0 ooHocljnqO6dEOOifyZgO EtuOiKuCPPWERofYa6UTT RmG2PKZpGhGWRBKqKAEmN lByJkDn4OBVZFAZ1LPjsu QklPUFNZOlxwYXIgDQogI IUuSV8gPNCONOvYQGmCQT NVCFnKSfOJEzDUBP4CEO2 OIFRPVUNIIFBSRVBBUkFU UI8GLeukUcDMM5AzABHYQ TMHSCBLK5qiCFPeIPuvHX EfTZ8aFw4zCtAYUuOLZME HU3CMG33bAGVLEw5LZFCP UBtHJ67OOSJUO9LBPJhlq QNhZV8KAMEsxsKZJzWis9 ShiQAmecTkz2I2SQVtlO3 dUUEfLFukyPqwk58cUP1p CB2iZFFzSRQ9JYQ2FnqrX D4fFXPshqSoqe8ngRsbmw UbBtOaYSCrYRHjT7num0F bbfIkqLg8ivZzybMvtHS6 aWVudCBpZGVudGlmaWNhd WhinjG8NZDonFDdMn6pfZ VkLlxwYXIgDQpccGFyIA0 RRWQvXEhqIOSjsQUQf3Af ATzsqDU5YEqauX44pJDeC B1VNFkhuQQmnMQcIIXfOB VuIEZlbGljZWxsYSwgTUQ wUI3xPM0rJNMxAq3JGRPk eNTOSZK7PG0wDJuxFQDcN 5NoT7WegaJ1x0uwnKbbk0 JyqJMuKT5htBOcHI4BLSL hcmQgDQpcZnMyMiANCn0= Disclaimer (test code = [id number]) u1mtiUUuLPFvv7zqJNKnn GFuZzEwMzNcZnRuYmpcdW FeKDpiuiNpCZyju5HrS0X yMjAwMFxhbnNpXGRlZmxh kseeNODaADR6lsGrJAPjA KwdNKEtPZfvMy0gpBLppC waYnRvZLRzt6urpsZKSGj mJmEuU470UQUvWKnhw7xh r8PcYINjeQCuc5K9GRUEo uqbgLh5rMsqG52ww2C4Kf nkU5lvAMJeWQZfK2CtAK7 iPOVkHsi1NQB4FIR9MZIr ZQPzM5WoRM0fVHOeqQWcR De2d0pbsRttQXPbXVZ6y4 gmFPrzmvSyIV7ipw6fcBr 5p5ncuiUlFNIcOSVegNGE JYRhU5DtcCjrHb0kdYd6n AliGushMRN3Zve5GS4dpt 18lkb7sHghRNRkpcyvWyL 5QIvtUQToytiuCGa1ZPre WHGjySI7FVWzaOOkE4RkC JVyTV4dlse2KDN9ACglMV TpJrX2AFPxiAQvOKCuuEy hXKkir941BZF2PxTdJQ7c C2Afu8S2hR3rfXRjMABay YPzEzFvWISjsl1mlVLfRM hbc7OkAFH3neC0pNJnbAY vDDAbCL66Fjaqi6RsAebz f3KxS62npPG7KNtez9bcU Z0tNgH1jvZnQMhft5rakI 2hKnV6QPbxKJ2jSH9yMHY fnJ3hvhhaLJJeReAkjezr YWOrxPyoyvOhXx4ggNxvX KP8XLudE5nzcX9lPmQ5LJ mhO5rvnF5tWYs5OEtxjEQ 5QLGygC2pRW0iwpjrm3zc MOdjXHioSCVqtiG5edL0S KDjbARnP2KuqK1nUPLbIN 3qervgg5daFVA4JNahDKN hEUD3NoFeHLQaw0Gyhag3 DvRoz8YtpEHvSFvkL26wq 075UDYciyRdD8bmrQYvza qlxFYimgxsRDzklwF6JAX rmxAsn4PqDWNxOLW1XErt JAcynCZpWDZlhJqkc2eyQ 3RscGFyXHBsYWluXGYxXG ZzMjBcbGFuZzEwMzNcaGl jaFxmMVxkYmNoXGYxXGxv L7daWdThC9ZaMEMcGeNvc KTqR4gqFJsufkKsQYCart VbeGI7KXpuH8u8IPTtmmK yjZl4faDwCjTxVILbAXG6 ZXzpeGFdQKJmx5Lvurlbx TMbSq2vdXEcKEEloE1vZH UiWLAkMKhuMG6piPe8NVU VtLBcvRJbDrZOFUIsQP19 avDkFOUIudxdk4S2OJyhA AEok9ThjDOyS9zus1BiIW Vpi84xNL0nk4H9f1fxBTN 0TA3mg8MaRRGpeARipDZf SOQug3Dnyzdef4XlBHTug lSpt2LxQPLrbnGvqHLhIC CxjaStrb2gjfIoCDLuTKL pO5GkyngyzKfxtkWhQHIv xu6bdcNxNYU2MXHRLPUhF JCbb5KlfV0hwTNQXQE8wB Gvyi9pssCLrKEwXNQupd9 4VVIzLE0yG9knLSNbEYCh exWhzHFlr6RkEQYceFK5d SVcSO5VDfHFy38cFOEvQN AZnuGdCIZboKbybBN8qmB 8bK7nVFdQBYYlPhn+IFRo SGVHUCPmDW8kvkOjh0Fdq gGafUkoEUXgmGLbu3QnwK Muf7ByrZkhv6SypXMlxPS gUV0gGPMjmjbmRAZuFWBR NkINVTDmugF7w2RxIGHhT TMqOSY6iEkbvbn9CTFwmQ 0cIDQoO5xsdpwhKWflOZL uk6BsxU4nlLLDyWWbh6Th pDWllIQKnVUoOR7cjvSdD BvLWQyLFFP7arFzYGNyh8 XuSYtgM5cgJ11sxVujoFm 3cCP4VLY6oX4oHti+IFxw YXJccGFyIEFwcHJvcHJpY JSwxDqcqiEzE0PyjuIwrD 8wvYHkgkXzGM6pGQ1lB3P 9xGKpLDPbonOqd4maFPdi dmUgYmVlbiByZXZpZXdlZ TCjd5JrWOanAOH7UHgxvi BpbmNsdWRpbmcgSCZFLCB SpERlmWUaCKA2GYjzkjEr jlUvKF7vhF7wjJganQ5xu XWaxUH3nhgoOMTtMUQbmN syCKFjUV7uoSupmZ3zYqG yIoCtNYefAG8hGDTmT3br qDZgVWCwHVTbL6dkSnKrp U6wqUtdRDfsTnKjEgRxEM xwYXJccGFyXHBsYWluXGY xXGZzMjBcbGFuZzEwMzNc aGljaFxmMVxkYmNoXGYxX StrN2btLzLvN2OpDBAeNf MqaDIaY1hvGDlnBXM9LYG sKF6idZJdOT85vOHqq9xh VEvuwTsvao9iH31gkZJwU VhvqJyrYOXor69jz8JlHC BqwdLijx7kPSZjxsO9mP3 sZSBzbGlkZSBpbWFnZXMg e5DmDXfmtANudeTrRPxcN RImUKZenUUxevJ0ysQtfr WjdsDbGWCqeRmeTOAxf2S cTXRaUJenh0Jvkc2rdZMj GFNxckEJbXrcvDSenL7wC 0RtUYRsZJUnla2nEYYovZ 0cMHvqm3EndhirKIJiSCA mAVCozoUhkm0nQWVnsQXZ AD2GNJmvaSMaf3HlquRwD 9uMCOF8SFGtLuHzXdrjPT GrzNAirJGrHDHshe70NKL piM2xeDkmISLppI5poE4q sLiqcX2nRmEyOvYkBPnkV P1zFJBxI1yjjIWwUUJtVO OjL9ngAlUivF2rfOwmRTe pKnFjOpRqFDmuBTY9bT== Embedded Images (test code = [id number]) [facility] [id number] 22:58:22* Test Item Value Reference Range Interpretation Comme nts Case Report (test code = 6806343367) Surgical Pathology ?Case: [id number] ? Authorizing Provider: ?Natalie Ridley MD ?Collected: ? 03/31/2023 1517 ?Ordering Location: ? ? [facility] OR ? Received: ?03/31/2023 1526 ? Department ? Pathologist: ? Sandra Tyler MD ?Intraop: ? Sandra Tyler MD ?Specimens: ? 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 Final Diagnosis (test code = [id number]) l5tgfRKuLKLvn2zdVMJqx GFuZzEwMzNcZnRuYmpcdW MxIHtccnRmMVxlcGljMTA 0WJOtVQ8luOercFm4iWnt FRQagoA2gVFgKGzkd4rxI SZ4c5zqetjvTAHmZFflFr 9udHRibHtcZjAgQXJpYWw 6wA43EFFtmI5igPEpHKd1 XHBhcGVydzEyMjQwXHBhc WMczAH3YPCoQW0qisibAV ckWOjxTTUpfoI4ZHSvhIJ jG9LgVSYaNT6eqfpcPRG9 LJmjVGVwXJM0GaMpCSKnd 1Kaufp7DqJzcITtWVrqpG FpblxmczIwXHBhciBBLiw uIi2aBw2JWLVjM6TLGrOt ZLYAVdIBQyLyYbWpBq5WJ VJIMF5GFmaeP11IGNKPBG 9NWTpccGFyXGxpMzYwXGZ eQPW9LIfnnH9eMtIpQMLn MA6bDRAYMJZYBLHWSqFOA JZNE7HKOrMTPf8GKVviU5 1ZD1gQAAPUCVKQCAKQLAR RTRQUYYNKObsMWH1rPORO BXXNL85JSJ9IKDqnGGDat DteFJPdAZxqiX2mRMTeik bjSHPfVUG4PsE5SWQCw9M pcJUyDV6qCHC9VAWku33k DY9FUPB3CmB8CjLdSAp3C dPkSR5sxXZzOCEggw61WP M9VpQsr4Y8QEKaHzVcNZV jDN4zmAndBBBpYC4wKLOt J3ifhD8fvsb2NxIvJPUxA dR2XQKpnfO2Gwa2GRKoJJ erc4ywx8LeU0VihGIdlHn 5g3wmZUNoYoM5gZWkLApv O7cediLenULrRIJsTPa9r HjxZnZuGMPrd3nwjuWrLs NoYXJzZXQwIENhbGlicmk 2bE52XPXyqT8kaOXvJVoe heRiYwX7UZtwOUJhBxE3E NTdtDWcAZThJ7kaIGTrAY gtYDMqMPtxiZUmHQK5sYz ni1U6gQPdjWLzzChtMaUn OdPjSEOSn5IjJXa0eWksS 1XiWGBbNfP8cKBoXSXmQI keEWSwBADhqjD6qO55JTy sxvW3kSBwv7Bey13qg080 bN9cxEYaKPB5ZSWnNTGar QYwYUJzRXV0KPOnuLCtA3 zfQYKbCI1nhfhdOFyuCXc hNVIowQB6ZMCgcDOoF8Kb OWWcILkkFPMqbqu4DeMgY l3ljHZciBgzBLsdq9ooy9 rkgUNlGnl2JCBbUqQbVuh uPRitm1Rnc9imMMHjht2r ENJ6xJGmhPnjh6X6dNLkC LSglKTtjiAtUJSfHuO2AM gdLT6doz94DLRnBLR6fp4 ybGNccGdicmRyaGVhZFxw B6MkXTDcj016CQOuO5OtR TMzn0O7fwEdJvFtOWQbvM U5mqQ0KLSfJXd5yCNotwA 5hqMpkPGyY9dviL8vLCBz YE7pnzffu5ajMHcyYIjqQ QBttMV3mwK3PBZutAIfC2 GnwS6oMBKqZNtvHMFbhqt 9EdYgEb9agSZbjKdnBLaj YmtwYWdlXHBnbmNvbnRcc GduZGVjXHBsYWluXHBsYW luXGYwXGZzMjRccWxccGx ubT6fPxJtKuCqZJefDQ2y VXQoW3saqHJqLZKwWWMxZ 7xiNsHlfH9qfMcrRHpsHu JcZnMyMFxwYXIgSSBoYXZ lIHBlcnNvbmFsbHkgcmV2 nYE4QIWbYAheFAIiHTQrn SMsut5ddMvlSGOhIQ1pGC FncmVlIHdpdGggYWxsIHN 0YXRlbWVudHMgbWFkZSBi eSByZXNpZGVudHMsIGZlb Jisy3Sbi1SznOD6vY9au9 esv3QvHJCccOX5BP43dfC 3yO8zHZSrAN0vKWLwIE0u eIOnkNPoJZQer46fuMjez yByZXBvcnQuXHBsYWluXG YyXGZzMjhcbGFuZzEwMzN caGljaFxmMlxkYmNoXGYy BTmxO6gzRaBrEgEjWShuZ XJ9fQ== Final Diagnosis Comment (test code = [id number]) m2tsoIBoADDpwWYfGWOzA 1hmtoHvFUJmeZHlV9Fkaa gpVHzqKG8rJP6llNiouKG qmNNpSVQsJvNep2rfm466 rGZvo3onDDUJsumzwUx9z HimX87sh7A1MhriJ1lzOB BeMZdvhqYcsmW8YSCldQC kYBl4OSKgcHPbdaNpGoFe HBWkeGTaeJJ0UCCrUN5im tvoNTosBAeuIFYwmjE4PC BtxNJoA8DsMREzNR9gqfi tEFB5QDjyUQFkCKZ4NfAs HWZhj9Qlakw4AqKpqDNzZ FxwbGFpblxmczIwIFNlY3 Ksf93wAMFof1qvZd4fWGU pbnZvbHZlZCBieSBtZXRh u5QurViaKFSsHK8tK4LkT 3qgk68dVGuzvZAaKKCjvT EwreAqg0AjmV4wcEVdMGT wptNtMYEqEQ2jBSUuDXRt YSyxYUAfl82qwdArtAXla YLlMHYkFFXjKPI8F0PtrR lxPYktGyIvBK24oAJ8xM0 lKRB2qPHvWJ7ptw8si8Du jJ73zbImWGQfwVe0FI7lg ABzyYXyAN14B3wlsXfpRP WkETTgs3KuS2UqJaFpMe7 qdJKeeyKuoBJiG0J4moOn ERLeMQAaw6Xrka2loJirn WDscDQowV5ftXFmGPJpAJ Ecw30oKjOOhAHtYSMeRHL dOTW6oJ9viSShwGyrSTKn lByxDCnbAQrjbp17or0nf 2TkxtP5QByfY8gkm53rlK iyPXnfVRQnk615oFvxOI8 gRW55C9wgp3ilESSoAKCz gbBbxsLguAD7s8EhHhTUK 5Q9xZNfZMVcsCa2n4HkSj YvzZx2jsIzRRDePUUlm3K yZB4cCGJrclioKACmXvfi iJ9mdV9zrOlwbL4zuVIpl JN1mgejGNWos1JrPFS9WJ ipoEjkVQG1dF3jGEObeFs pWWRxmT8fo5PwLUOkSCI1 vo4lYpKsj4VwjQg3sWH0K GZvciBDSzcsIEdBVEEtMy wgRVIsIGFuZCBQUiwgYW5 aYWJyQANuNYyiwAk4PQYg j9KsV7rbHGbfVUVSZWenK ZOpTQZOJHGiPI4mPIPbKL Pjp6GhqC0uc9amMaLfXUJ 0fURbqsWdiiTniK9odD4l cEynzm00kDOoCRJ4eOTdl uNhINZtCPOfs7Nqy7pePW 5iDZJdHEKumUBskocgxA4 uXHBhclxwYXIgQnJlYXN0 ACPex47njwovpmRnjB89b m9dnMFcqhQdd1ZdKQDgSG Vzw6TsHOXtq57gPwveB5c gFzDmo3k1qPE2pEIqSf2s pJ61wM1dYMMlg7YdtZKkJ FKmYYUfwBAmVQNcT3PzO4 lmaWVkKTpccGFyXHBhciA gHMwlBIAIWCEjm2j4mGQz FHGtPGLePER0sAKkc5w5o QA0CZRlzDPsv2PzI9NinB SdzT0yJVVjmUCurkFiiYG itsLzxYJnyolgA5glBWOq NHLmOHvjudLyIQSsp1NtW OGkRfQbUG2gD3pyWJTlYW RpAD71MLDiLPstN40yaDH vbCBjZWxscyBhYnNlbnQu XHBhciAgLSBcYiBQUiBwb 6XxnEt8TPocERPrwzVlbH j0ZJlhgBwmAJNcSGR6gQ6 aSKAjkEyxZO8yWQHzNPIp UQ55H0wnZSRcl1BlaK4ee mdccGFyICAgIEFsbHJlZC RxE99vMSF8ZZdsLaE9GMa ccGFyICAgIEludGVybmFs BIMtgsEav3kvF6LdqWSgQ FNlMP81AqieQVSbZR6zUV TgXUVwKTBnapF3EV1gJ5I 4tUWhTKzjHlpxPEIrKU0v SRR0pZ8pOVEytQjeKA8pp ZOcLB4ejBFip1HwwA5qbk dccGFyXGNmMVxwYXIgQWx qTOU8nVJgycSyRYTmsaYt r0znPYFqf7izPOMbfh1gt lhccYGcxrOtV2Xwtyc5eC 4gXHBhclxjZjBccGFyXGZ zMjIgIFxwYXJcZnMyMCBF Tn3MKdINvMF1vDWyhXPqI NA1FTDknV7nAWA2s3hfMb YxojIpfW81kg2fxdsgiRF 8uDFfPFWjHBkot7f1iTXy u31sD3mitgYyCZFypKisc 5FyLKTsZLMNOYTom09fIB THPUTjohInSWFcJ7uamcE yNKJvImFDIOKnKJEtot83 ZWQpIHdpdGggdGhlIFVsd HMnDdazurEWpzw7OJTvJA wgREFCIERldGVjdGlvbiB LaXQgKFZlbnRhbmEpLiAg XXUzxm8raqjltWIkmzEzE JEayhFkPF0nFPQmk0v7cB PcREKqfpRgm5qoRFSgWKR 0q3FbTjTkMUkrWSPqayEf ob4ucgHyEC6bECSonNWuj HOmdPVhSGGrQuOvwgR5VK qnTCD8JDRsJYDwy2TdmB2 wHBPzLDDAAA7NZ0ZUJUo6 aWRlbGluZXMgdXNpbmcgZ l6xfYTtfN1gIic2KWPzkX UbCHSkaW0bYR5sILLmVLS po9TprMwcgoFsTOAdyrap YXIgVGhlIGNyaXRlcmlhI WWjTQBbAb9gINVwjT5deQ jqWnKBLl8SUfQUxG30nz1 knUPhmHZ1rjedbvRypKa1 gwOthwVgqK3vBKFvr4EoF A6eWFS2sLCvDSDuMRDKYF AvQVNDTyBndWlkZWxpbmV hDusfFYTuoBFgWFIac4l2 zGBuEJgdSLF1VNSurPvxv pKjnbZwdLFayLM0pxGgDO wgbmVnYXRpdmUgbGVzcyB 0aGFuIDElLlxwYXJccGFy QOIfrCNvPWYAB68wYYfux KHpXVBoikd8gy28HYc6ea BhZGRmdDNcdHJwYWRkZmw zXHRycGFkZGwxMDVcdHJw YWRkZnIzXHRycGFkZHIxM DVcdHJwYWRkZmIzXGNsYn CsuzBmFtCrkq3mucKpP2q dukLkfMkxisJley8mGFmb pFNwYQBpXBJoKXYil95kY IYdGaElhfQmSsYiue4yqe ViJ4y1IOU4IHx6MUErWqE cB3nzbLtqTHMqg4qlWURf JVV4MfngJAudaOBpXuWxE 9hmfuYicVmsrgCxoc6kVS gdhAPuHSErZNRnQYMfv45 eUPMoTpEiubSmJaLcqp2b xsOdL1pnqwUvGmowmgCdd x1dMNnxaNWrgzQzkJIaD3 mgvGMLiLP9sNBeO2d3C5b hcBe0OwE4JCEzpPj2ANIx MlxwYXJkXGludGJsXHFjI KVZG5FUMzJXH66kI0PAUc CpPDNMXRliX2MkwBcvROP kXGludGJsXHFjIFBFUkNF EhQPG8ZxPV6XZKNMAaDbR 4IVCFDdN1ZclPdipiXdgG tzr2oxcWAdl2GjtCLbYVF wVhKsCIWrdZRqBYMoI9l4 pjVsKLJdSSG6DVGpaNVdE FMcU9n8xzZmZCUxQWJ2QB QjiVChSFZkE2iwlGDkRKA 2CQWhMWFuv90mICQeTxGc bfsjYkOksx5ytzVoF2aqy sFcfwgnpaNwrg4zUKdddV VpYSJsIWBeAZSrr32jSVF kwlPsySZlgCikyKI4u7ut QZGeV2galVzZmLB4zQFiQ dBqM1BohDd7QrZ1VJRrDi PjmxKtQnBhkm8tvbRcU0r yhyDoqUjzddCzlr2tHOsk dDFhCVMvBFNuRJCyv38eG FLmGwNmkrBwZuGenu3lel JmG1c8JQT8UZj1ZKGdDnP xB9ruoGeiNOWky7hkAGNp OLC5EwcnRScpwTo1GjSdj GFyZFxpbnRibFxxYyAwXG NlbGxccGFyZFxpbnRibFx iQbRdOGGzbMwmpZ63Ntak yp16DFQdo7ajWSKsgDCfI VN2V9n9awAtBQGduJGyaL FbELVimCNeFIw2iwUdTXF mcjNcdHJwYWRkcjEwNVx0 gwVeGBZtInLyJ0cnjwXfn StqlhXmqi1pVWgvyEDjSU GyQYHxJPTyr75lCZHjYnK inwRuHeTmlh0ztuNqB0bq izVmTjqmytJprx0jZOhrf DOazfGbzXKjU4zwfQISjW T0mBTaI3b2E9ogzZt3LnD 2PCEdtWy8PKJ0LptmuEMu GPE2NSSnLBFho98pRVUxV eBaprhvNySipz4wauRuG1 xytsUantyhmgQljs3jBTg qrBTaSKStAMJqONFmi73k KJVoijUheIAoaAslpAS5s 2pyTNCfA5eamDkHpOG9tO LlOmAkQ3DwaOp5FJLwIXU wlvBtiG39KlralOUqJRrx BOozZMCtkbDesI18Bfkke AEuLTKkMIYvfDxfuN01Gg jamv28JGHem7ohJXGmlSB qHYX2J4m8wzSqJEYbtLYo wGZwHRJwoZZgUBe8dbZcM GRmcjNcdHJwYWRkcjEwNV u8vcGhXEFrZvKsX4xfwfE kiLbfamNgky7qTSlzvFDt HXIzMKRgYVOtf73hVVJrP aOwzfLkWzFuxt1tchEtC4 ugmaJaYpcoemFpyw5jMIm dsNAsipEijKEqQ1aeaOIL pZX7pSWoZ8i0N6eonDq5V cI6HUXbnYp8TST5KjaluD CvZBK8BZJlVAIef87pAPH nMhYhwwhaLvJefd5brzDc M2ovkyPexrxtegTecj7fY VxjbGJyZHJiXGJyZHJub2 5lXGNsdmVydGFsdFxjbGZ 6a6rkBCFkK4srnHnBeMI7 nDVtHpEnP4JloOl2MBMsU LMeunAffI08TeyjzLAsOy vqHJcrLXPpouFozN08Rhz hmDBjCM6tRYIgS1YboXqv brYvnJvbc0jddHQpc6Fnj HJwYWRkZnQzXHRycGFkZG XvR5y7crZwFCZhRKT9SHU deYNiSLOlH7a4loGmDIOe GWC2YRNurXWsYZPaC2zlj VChVER3KYHwVJDaj29fHS BwUeSucccyVhYbac4dqrZ mC5krlaWiadtsxbGikl2w ZVxjbGJyZHJiXGJyZHJub 25lXGNsdmVydGFsdFxjbG Z3l0ctIGLeW0ewaJmSjAL 7dAIbUfJhM0TytHy9YjH3 HBMyKtSoqnRkUfZrfq3vv mKbP3vsowGhfNvdlqCcvg 9uZVxjbGJyZHJyXGJyZHJ fs84aFGPuFzWtqdScCqLw ku2vqrXtD5e5TOP8YIx8O UCpVqWbH3ceuMlvZJWtb4 uzAPWpNSI7LfbkIUyquNm 1MzJccGFyZFxpbnRibFxx YyAzXGNlbGxccGFyZFxpb lGltNzbQvLkCL4yCqHkO3 BcaCpozwWfzLeiq0bgpUP lh9AezFZuSLOgDiEvYKSs zEGqAWUiI4a6fpUsQQGbA RF2LAAbvCMsHYWsL0x8th SsVOFqLTB1ZYWlbSFxMJU mI4aayYBoXMC5CTVaQCGr s33hMYAvHlAfywzeAlIli h7wudPdW3hjtxHmzjldqh Uhfu4fOZnpcOXrJXMlTIU wGGPny79eWGAowvOdtLPh rMrnoRM0n0jyEHGnG0uqv YvUlJQ3tBGkJrUgW7PitK i0MuF9LDAgTcWgudTjWqJ dly2ljhEeR4wgrzQiqQbc biSpux1sBTlgbSCnKHQuV OIwHJTwd21dGMYiFfXptj TzXgEsty3lddVhI3v0KSR 9BZi9VKHvEvIoW5fynTys DWOay2cfJYTeDYH4XmwoQ GrrtLz9QyIhmOAiXHtdrp ZaoXebMxT4PEEniKxdfNC vXZidtzQpsGorXjOtAw46 TeVmJ2BvtTwzxhGfsSvll 6spfNZxe8CbfFNwkUIeo9 p2skPeDNYdgUTeyCItFHD kZmwzXHRycGFkZGwxMDVc dHJwYWRkZnIzXHRycGFkZ HIxMDVcdHJwYWRkZmIzXG MdNtEwxeBbOuXxto5vauF fJ4dpjlSbkOkcbyUvlk5e ZVxjbGJyZHJyXGJyZHJub 25lXGNsYnJkcmJcYnJkcm 6bacBgU4l6WBA2VBi9GIG cUzLgC0odwSruBOCgq0lw WPMkYAO6IcbsFLlrcZRdD pUgQ3tzlmHohQnfuuEjjg 9uZVxjbGJyZHJsXGJyZHJ zr41xKPUwGrCjmhYyQgQr qe3esaOnU2zbdpXhDxnzv rToio6dTLsqxVYxpbEwxV HjZ0sdbPPQxED6qRPpJ3r 5T4fneUs3FeG5JRRzzWb5 ODUzMlxwYXJkXGludGJsX ISsTHVwP3XsnDicKWJqFV jzcFOeCJTyHI85RyKkK5Y uyEmzdtQgzTees7tynQLs TXkfKFAruBAen7NwsHUnJ WRkZnQzXHRycGFkZGZsM1 m4uwOuXMEdDGB8YSWzaDU eKEMoL5r9dgEfXCDlENS2 SPEhpZDrMGDfM5qvmNBbD QJ7MQEjEGXnq58gXZJwKn NugwmpCqWzrc1jwiQfR0m byvAlnfdcbuCdqc4dBXxv sLYiHFTaXXTgMWOnf15jT TNbliJaeVQbpFxbnRU0c3 hlVVUnD7sbsVpYqZB6xWJ eThVkX7TxiTz5NdD1EOWk IpZxwfUdGpBela4esuBdA 6ysmdDnsRybftUtuw2yNS vlnQGjYHLnIFLsRTQhn66 yPOTtPzJoiuXeCtTanl3w xjHzT9w8HZP7UWt0EXOxQ nIuD6ruyNhbUPHkm8unMA RwXEK3PmfhPDieoNb2FqZ ccGFyZFxpbnRibFxxYyBJ DuSPIbEVCCpbC9DHXmNxP ElTKVxjZWxsXHBhcmRcaW 04QirovBTmGK5DAC0HCAE AJP6ULUMCY0nJPCTCPZbv L9JoqVpycaHnvHrxk4ffu FUzn0CarRZaCJJtIiXcIQ EnjZVwOAJeZ8g1xyPwVSH rZJC5DTXtiAWhJFQvA5c1 phFqTXMdSVA5ETItmYBpG HWgO9pmoOYvHYR7SFLkGB Kcp87xRWAxFvWqfbwsDwL mae3boaJiZ2amvvJqrtmw zrCzsy6sFKzstFIaWMKbX YPoSLNee37rHVOjlbEdnH ZcsNihiFT2b5iyYQWxF2l ktUfQqPM3iGDdWyQnY0Bf vBv2CzV3SJTuDwLkymVxC yChcd9nqmLnX5epggGudD zrltSwdc5oJGhbhXDsFLW vCHOnBUNwr89yDFFiYnHk pyLdOaWoqs9motFeK0i3H QW2YOe7ROWqMmCwB0ptrK kxAPYdh1egFQEjCWY9Ymk nRKhwgMf5PdDkgGTvUGxj bnRibFxxYyAwXGNlbGxcc GFyZFxpbnRibFxxYyBOb2 3dAJWnzZnuzZ82Rctedw4 6AKCli8pvDKCydJMxQHN2 D4x8xaZqHQYzaUGvyRCtY KDalFIaEMv4gxFtCVCymf SeoHLzUBHnztAfXMs1hzA rFYTtRvVmB1umbiAzhJay bwHkbr4nNQaexUPaRGLqP IOaOZVnm30qGGWtFkZozb HiDuRdyp1nlqWjF5erxwK eScdzyrIhsu8jRKlieOCs ofPnmEJhN9rwvMBAuZY4t YJhK8p6B8tiwWt6GlX2QJ WodVe7AEGnPhuqiSUhZYS 6ZXVdMHHfs41oMXPrYdGv fkrgVaTlxk6kmuZzJ4wuz kLkwogqaoKkvg3vYAofkF MkDTFoNZHkGSVlp69iAVI ooqSjkQEqmEsbwID6o1ud PBIcU8ilgFpKnEH6hLDzM UKdX8NdrRg6JWKvKFBtyb XnzP59JeqdaCGbQSjbORi gDFNtdrNcoT30PxlrwTQr B7Wrg2itGZysFZuupVFzD PCjj1e4pr47OYe0elOhWD RmdDNcdHJwYWRkZmwzXHR ycGFkZGwxMDVcdHJwYWRk ZnIzXHRycGFkZHIxMDVcd HJwYWRkZmIzXGNsYnJkcn ZuChMdor4aqtEvO5thvkM szPhtbeLcwd9mFUupdRZu RNGcPHXlBSLyg34lAEVuK hLaouGsYaTysh4ddmNcC9 u5UFD4QZh3ITXqPwAnQ5g aeEnhFZDxn0yrOISrZUOf LgbsWZihoKAcIvXdR4ysg bIemCordoTtkp3qWBvasJ DbKVEvXTFyBFVvv89dCQJ jOePpumEtJgNdiw0ilsPu E7nxytGdEqxrxpEini1kO PqzbJLolkFciJWkP9iniU VGfZW5hDTtX6x7Z5qnkKb 3Lzk6NRQacVi3BXOuLqwk YXJkXGludGJsXHFjIDJcY 2VsbFxwYXJkXGludGJsXH YuWSwzpWXrsKUzgXO0WJb sKWjtSTfhfPDyCTXvz2l3 qg03SRgvYVM9yl66ODRes XHpSUK9B1m2xfSsQKUujO GkbCSuIKTnjEOySZo3amL hZGRmcjNcdHJwYWRkcjEw QOv1tjYhAIEjYzHrN8gzw pDouNrbufRcxq5dTAqpxC AbQEDfUFBwEDGil61aRZO bFtIeeqHnTcFfuh9laqGl G6nnhkErNsyehsIngs6nJ BojfQRdpcUwwLKhT7daoF QCvFT2wYJjY5q3M3smrTm 1LyT4ABKhdKk4KTBmAoqn eGGaOCV9ZRAuSOQoo08yS FObYjGzjzzdVlEhor1mqw BjO8vwxuRvwkswtlHjzb9 uZVxjbGJyZHJiXGJyZHJu c41xOYWjofXljGDmdRefi YL0b9syRJFqG2vvgAlStZ K8qKSlOLTgN3AfdDz6TJQ xZROjztBemF16IyzdnNXp R0lwGGnxZJCcgiNtwL59A ayhcLQkC0Hvd67hMTGszT xehE93Qoxzkl82QFPwcpD ccWNccGFyXHFsIENvbWJp dbIhBMOuoUWhXFPdo0CqU osyGEEnIS8MTBacK2ENAe OkIEHMQPP1WAZPCHfpTFZ eqPVdEPXai1keWIVhsBJb SKY6X3a2vxGbIDXcmKRqz LBdTMQgtHNfDTa6kuWlOA RmcjNcdHJwYWRkcjEwNVx 6amDhKEPgLtIxS9hkodPc lNmskmOpgr3xHYdrwJDjU FSjOPEzOOEpl66wBUKsHn AlowWlVvSyhr7rmeOyL5a cvsEyEjsyavXdnr7iYZxc nUBcckBguTRrX3lzwLRXd XX1uDQlM0u8U6xzoAk8Te MaOVIicHe3BUQ3LZkguHP gLQL5FTZhOILpy97kQZZw OlQvnyblDaBkqg1ggcJwJ 3kezdTcxiidseRkjn0sSH pmnCOkYKSmMMVqCBGhv23 lXGNsdmVydGFsdFxjbGZ0 r1elRICoO8ocuAaHiMJ9x KMcKJLmF9OmoZi7KBZqGR LpruZhdP70MzqhwMVmST1 8BDzqT5IyljOvY9OzgBbq YXJkXGludGJsXHFjIElud GMlkWInsGH6nA3fAUWpqN nbsB47Tvjklk93LFUbl6d nQACtoMJrNTQ5S8s2ubDn ZGRmbDNcdHJwYWRkbDEwN Lx8ddEzUPCrnzMtoCTvQB KzvuWfPYc7ycCtOVWxEuQ rJ4soqdJdyHqpjtPnne5v ZVxjbGJyZHJsXGJyZHJub 25lXGNsYnJkcnJcYnJkcm 6dapXoF2dzldFcLmxhauZ bwi2aZTjflGHikiUajFHf N2sdiPSKxXH8vNAzS1v3Q 2dhrSk3QrGnJKKjfQh9CA Y4GRyurUFsSNQ5FZSyVPS mo22xEUZsEdPlyasxKuGw ns6dosZzY6zijfIebskwh qHest9pADlayTNsFRSpJM IvNBEhu60jBNNmjqFzcXL ccCrboYJ3v6ukEZLkD2da sVjVmRJ8iEVvQFKqE7Hiq Av5OPQhMKBkhvHyvT54Lt xccWMgMCwyXGNlbGxccGF yZFxpbnRibFxxYyBOZWdh aOd5ZPotARtcSQwkwDAiM BPba1i7ay80VNweWFZ4mq 91IRIdpRHaJQU7D1g7qfV hZGRmbDNcdHJwYWRkbDEw YQv0cvCwMCBgsaMjiPBvK NRgmaHyIDl2ciKbEPQdLz NwK7cmdwKfvRmxqxIqvf6 uZVxjbGJyZHJsXGJyZHJu j29lAFZwTcHfsdIeQbNtl p5ddiIrJ3jtxaBxLtcpmg Vcmk9dYIhvaVXtcbRdiFU iJ5jowJTLwOM0eQMrK9l6 K5zbcDt0VpTzLUKqtTt4Q NY7ZAvvuQEtPFM8OIJpTU Xos37vMXEmWfEmqlhlVuO zql6zbmDeT8tetdThezau rsWcam8fFJtrfIMnANEbQ VAbASGtm82pCMOckfQqbC LedIteaNS7a6bkHBQjF9b vvKzNsHN9nSWuXHQdB5Kn eYp6SGPmUXRwjcDymY99N kzfrLDqGac1ETWiAmq5BB wjT4OxyOqeRRWnUVriuOF fXBXmVHQio9z1mCVbLQOu rVdfhK98Hovxes24TUEsr mRccWNccGFyXHFsIEhFUi 0yIGlzIGRldGVybWluZWQ utIZjoxviEL8bXAefn4Rh pUvdDYZwf7IhdYAogp7xK XNzLiAgVGhlIGluaXRpYW wgZXZhbHVhdGlvbiBpcyB dJGLik2OpAXKmlQJcyavv MD2znW8unR3pJR51yW4bh ElfCFNwX9ubiUB0EFL4pI XhDTBpktOqKbe4FN2yek9 rcQ3pTQuzVJ80bR7WTISp M95mwLNrdeKbLu1nxCGgP 7ajfkAyCOV2RBIZJCApEL Kzqu13EQPpVSEghcUrpjI pIHdpdGggdGhlIFVsdHJh QlozspHGysa2WEVtKPleR EFCIERldGVjdGlvbiBLaX QgKFZlbnRhbmEpLiBUaGl zRVfxWQNdgF8yeCFmJMBo tRfqgRUdgnXieEH4hANui JsaTASoCBp8dCKpOA5bW2 M6aMBzWUjxIV2vSXMcWLF 9QKmkvC7iAJQrivRmq6Bz nNk4YNLoWqufq7RqsP2fj srrChQwXWdnb3VcfgMvtX c6loAktaLyW84yq1qiNAM kFMQyuV4ivI3wCOCam7Ug UPVmVENjTIEcIWByrK4ex JPcDKOwnYs3i3PomAZlXn uee7FlzY3rqaudTMXkIHU yZWZsZXhpdmVseSBzdHVk bFTqTQbkzUofYdl1p4Xmv 2NlbmNlIGluLXNpdHUgaH licmlkaXphdGlvbiAoRkl TSCkgYXNzYXkuXHBhclxw SOVcYVsxehIdf5RpzFMpR G6cIpWopUEsQj4piVSiAV 8wHHWmlOJhalCopJOyhx0 aRMCvWZWvDy4elXIqiS2b Wku3HMRtXLOyqtZhYuoeE QDbJmAyCNStRGRsy7Y2RL 2oTB0omSMknhWoM25whMB vzCHtNUxiX8cmaUW8VCnv cHJvdGVpbiBleHByZXNza M3kFAVvx2psfMU6YRqwwU JvdGVpbiBleHByZXNzaW9 yBYEaOINjqqBrjn2hiMKq v345ph7jPNPzzwHsqnPdO ETwoqFoG61jbFZjuTHnmy Kudi77fWqiYFw3THDvEHF ruP7mjWxmAQG0WQr2HIHi f63zj8ZjbRizGSVpr3D0M qVuSCeyVVZoe9UujgnmnY QwsY1apXAnRYDkNUEefCI tHYVcAh7prL50orIyQQEu r2KatW9hBOAnPPDiCHTRa 9pfXFztQR6uPOXaRHAfZ5 NcXGYzgLprbA6cmQV9kzM ojeDrdJwxSVWqFZFtD7Iv FXZcS9ywdSmme7BiQ3wxv mayYXpuL01my9qaT9cuoi 4ukkUzD1LjAUOwdH5cVO5 kQTSia6RbekzjCn0qNUwQ DvDpi4OqtSBfNErfROvzp mFzaXZlIGJyZWFzdCBjYW 5jZXIpOlxwYXJccGFyIEh HTo7xB26epXwurKMfMX0P H7VCMZDVVFzMVySuNFCJB GQvKIz3VFKvmoJFheNkqW FpbmluZyBpcyBvYnNlcnZ jFTQzajSeHN7rsnMvRVJd aLXsabcyTiF5eOM9NNryO YwsY49puYsuoNCtGE3fEC opTVAepK89KWAtxbOoyVL xCsmaPCPnNZX2oXYkdV9d OFHmVC0uEPzly6Vlx8Fjf JVnh8IaB8BrvLHhGDJcrs xwYXIgTkVHQVRJVkUgSEV ABsMARSHEZFooIuv5MBGo moUBjrGwkUVgNCRzUO6hq BQnBC8eTWZ7RNwacT0kOP RoYXQgaXMgZmFpbnQgcGV bV1FozHvtgXLmNY8rFHgi dGhpbiBncmVhdGVyIHRoY R2yJYPuAL1uDZQ8cT6eYK NlbGxzLlxwYXJccGFyIEV FWSbBJ5LOSUOAANWfMRKX M0XvQVNjDDwpxCFjJOGrr vK2dDMdmrQirCxkwDIbIG 1icmFuZSBzdGFpbmluZyB 6hWO2PIrlIWQoxNQkWLCg TGVjPIJ2RPPzZFDuPE8pM YJlZAMgLYRcNFZ4mVNfbW 1jB2XjXDTrfeC4lGAoFEE mBZCsMyC4fK2zucNaZBhq myRjglHgsZEjjK5kTQQim nRpYWwgbWVtYnJhbmUgc3 RipL1ethoohOiwdJFqspR jhaPzstCcHPUnTGB4qGTc nI8nqFDzqqC4vFOxLD2pB GVxdWFsIHRvIDEwJSBvZi J9fO7hpnUgQMavcu5lqAH hJEVpboCMY2CJEFuDZPYC KMLuDKIHD8FvCJJeUZndt BBmWIBsyrF7iFTfmyTesP xftGCvMZ8llzZyTLTyhFT qzgmnIbJ5sBC0PPcrXQSn bXBsZXRlLCBpbnRlbnNlL JBlsvDtk8e2rLxsYUceHN I3VEYomNnlxnNdDGAlf0I gzHWrs3IkJ0NamXXvRPJh wzcgXDSim6NgMNXzf9ZuM EHsW2MtY4bsON5ljHAymD CyjAgcTQKWK86rO0IMELi 9iBKmqSwvUTIgr4GzLMMb UFIvSGVyMiBvZiBmaXhhd LspgiKnjgIwNTBeosN0jT EytYCrqZMnAJZmSCYfb4W pANgsxzQhl3FkJEOujEKv m5TlDjZzz8PdaiDtreKxd MPwqT0wQxZhqK54loYda9 NlKu1jaSHbmV9aWOHlbro uBiMsz5HiHEHqJnYuAS7z HBB3JNJUKEBKyUGdr0acx 3QsIEFuYXRvbWljIFBhdG fpgK6nwI3unAZuCJMpPBq wYXJ9 Clinical Information (test code = [id number]) 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] Gross Description (test code = [id number]) o2mabOCaKMCgoHJSKRQ9V NErTU2abSxbzGi0kXvoXO NfhdC0mAKlDAumh3kiYQF 0w4wmoyVUXobqWLMoHM2l TEskSIJxGX6kHjCtSQEoQ mYxXHBhcGVydzEyMjQwXH YozUAhgXO7DIQxGI2cxbm yIXxbLZfmQGDmjuL0SISm rYStR5GjOPOlHS7wovjrU CF8TWSBWcooJq9ndOEyyA tcZjFcZmNoYXJzZXQwXGZ rsQctSZGiOVy1wC5YSrun N98ui4V7Lzf1DOGoNDFjF 9XaOF4fVCEdtUMkF51OIj yvBUT1QUVABuqjHugkeIo xx7NrfEHcZZHmDVkckLIv NTEwMDAgXFxkYiBPVlIgI yM2WdS1YysaFfQ6FNv6KA XGGOIeBbr6AQX2KNJ0FEd 0KSHrQW8zPHsimVNcWXcr SkorWKkwU661SIiaCLPjS 8XvT0BvCSkxEvEbBAmfDD SrCGItIVeyDAPoC5NZSHD fLLK1SsX3RYSpAFi5WQcj I4JMKUWeAFUfUjDwQHHvT eA6FIb7JWXFCy5gCAr0ZD W9SLKxBHJ5CThtCKVlPHB gMiBcXHNzIDMgXFxmbCBc AY5djQubXOJfAW0GUYNeE DzeVFOqFoXkL7JZT5zDUV 4gQVxsdHJjaFxmczIyXHB gllUMCfkrGTNxYD6EXIRd QPpiNBl4czYpIXJtWyJkD NMvX16go3FWo1TmRJ1SES d9yuOdxwymnV9mPXYodwB gDQpcZnMyMFxwYXIgDQpc Z5GfCODkTHEqiVSiYCWey CHwbkCvNRb1ETVtXhMud5 tvVc8kSKopvFYxq7EuthF 6iTExGSVykcI3bCFkaDcj biBsYWJlbGVkIHdpdGggd GhlIHBhdGllbnQncyBuYW 5xEDINWEDatA4oXVKaTIU ZAbFtspDaDrZkPn6ujIIP sL5pbbZtXC2zLLVriiJjd 2NaBP6vKPJlg0rzV5gyXC KoBKyrRK11ZS2jQIonoxW zjrMkPSGzx7frGQIgw2Q3 GYQfQW3hRXhdXT3oUVybH R66AYXwHL3wJ10fAWCcSK ZfSZCpSLWfDZBxo13ohMa yDRXyOM99TGZ8vICmnZLx YFIkIpDvsVjnj0WyVhCSe RTbe6IjB0ebVK5nyJOop9 SloPc2dRYhOVOfaMqiPSu 8XNRnhvKtXANzIW0oqbFn c3FavVtjrfHlneUJAEozU w1aoL91iC9vFJYgH4MrY8 zmyIRieMqyck4wwMTuPS6 KXHBhciANClxjZjAgSmFt tSVtL6AmZBKcL2yvWV4VZ ZP0OrW8XdEsGrNuJIc6Od JvYB1srSNoPD5KEYNwOvR lJDTbH1ckFXHaEV0RUXTm MSANClxlcGljTmVzdERvY zK7DPQzePBrFZS8GE4ltA jlLGBdRNm6EHdvGOPrL0V dW4RhGEtnPvVkVCmeOSFy MNHiISyjYEFxH9MXDNIzO HX4VoK8FMBkONd0LKxlR4 GAEKNcLTBcBgJuPXE2NmJ 5SWf9QKJJCe4iDOh0SFfn FUx4CLC3ABspFIFyJRBnB iBcXHNzIDMgXFxmbCBcXG 5tbKohFWNiLIQxETU0VIN iiUCMw0TjYMFqGTgtW9Fi XGZzMjJcZnMyMCBTUEVDS C1KVvYZNRLgPrHuiKUgGW 0LIYDeneLqXErmfWlajN6 ioFGtA4wdWgEaXctdcVsc TmVzdERvYzEgDQpcbHRyc GFyXGxpbjBccmluMFxzYj LhPTZhsWILc4AhACZFClv mczIwIFNwZWNpbWVuIEIg oEFhuoNgFUv0NVZeWqUmn 5tpbWHjOJeoGVT2pNNzMK YnGOUeWLQvQJ85D0ZzzmW tZSwgVUggbnVtYmVyLCAi Gv3zNLpjJcQgAD6nEHF1B HRrZRyicDBfj7MgFPAsKR Vyz11uiDX0fcMrDgPbduI zW5xdBXzxrFDay7OvqWId CETspsrhsM6jOwIej12pd VPoVIc0oJXrSVRfmuLuVg TqY76eruGrKGt0LyVywPP tJiGiiLZwVizgY64yiP1z XAvwumLsVKOkEE9pRXTcT GLoJMXfZBD9UIJpMGxbAK 67dkNvrcEcIzrcZHN2HIX hHX1lSXYrKUZwgVXxtT4n biBpcyBlbnRpcmVseSBzd FKnbNR5QNQtoV4gNoXdOf LoIPEblLsly2bqIzEYpO9 0su7dHFrmVSOkGQjvlDCe Y4K3zV4sDkbxWZVmABjrj 0NgAENfoBUDy4RmIV6FTJ BhciANClxzYTMwXGVwaWN Qa8SjPHOHUmpqIFCeIRUM MNNsxpcxYXZtVSQDU7GdM 20NClxlcGljTmVzdERvYz A2RAZphTCsKMZ9IF9aoXk eLHChU3UqN4SuzvO7TEJf vaUUGgxzXSKyYG2SDHXsU jIgDQp9 Intraoperative Consultation (test code = [id number]) j8xkgQDeXGYgxNOPRWR0G NJgJK6vhHhbeMt6iTueJA KhjjB6qAJiEVqtt3bqONX 8z4iqmoSWHftmMXRjYM5c HOnbSNWeOE5sHsEjQIQlX mYxXHBhcGVydzEyMjQwXH FgiZGfrTX4NNGaXJ6mbaz gPHkoOYokBKRodxT5LGNp bCBtU8NnWXJlZW1eyzgyI UG0SVOFGwgxYh0nqPXtzB tcZjFcZmNoYXJzZXQwXGZ ebYpyAPDyUEo3vT3EYuho OZL5CQIGAufaMuwhrJgit 2VjdCBcXHNnIFxcaWQgNT EwMDEgXFxkYiBPVlIgIiA 0WoS1ZzbpJuK8TRb8DYBS HSRyTud0KBL4MVQ0EKl1I OXvAC8kCUzqpOPjQDskJw siYBvwG962KEouJUSdL5C iS4RiHNqmOsGhYInlQOFr WUAtAXiyJPNwD0WOEWBuR KI1YmX5TKVkORz7DVftR7 ZTICIgIDIzMzEwNTQxIiA 1LYq4RNCGZy9dMHf8EHYs ORChLkW1BOrrCEJnWCKvU iBcXHNzIDMgXFxmbCBcXG 8rjNkbNFNlAG8TMOTdYFd vMTEuJdWdD7NPM1bWSL7n QVxsdHJjaFxmczIyXHBhc iLBWwpeMMAnFX7DGHCnPV drDSa2fiAfNSHvRlOgSRQ yF19kp1IFl7KqHP2QJGh9 ppKrojyfnP7yXQYjewOiN GkpPjHpFFNKALydJa9QMF XcS7JBTrRwKSCVNnYADiO vIjCjSa8AMWWGEC8JRmzs QklPUFNZOlxwYXIgDQogI GReKC6mZIWAPJbLKAtNJJ CDARuJIeIFGqOOVN1FAQ5 OIFRPVUNIIFBSRVBBUkFU PI9GZqiePdDIE3VjHFKFX NASATILH9mhRSNwNRstLF RjFV0eUk6dOeELJaQNWFZ BV4RIA72tQLREDj5AYVHX DJsPO08JFCRPJ9EZBFuew FJsOI4MOLUfazZDVkAdl7 VqcEWarpBmp1H7AYRhvM5 cVOUdJXsuhIrfq13pSV7z EY5yNEFuTNZ0DOB2MgyvW R6rJLMuqjTjna8mkQwown IsJhQcXTEpYRBgY7sfz1N uemKbqGg3ybKjslUznSY5 aWVudCBpZGVudGlmaWNhd VyzybU7GHGffYDzHf8oeB VkLlxwYXIgDQpccGFyIA0 SISHxZSujVUTwwLMMy5Rw PNxepMQ6WCsbtI98gTOtQ C6KYXbxpQPreBShZPQwVU VuIEZlbGljZWxsYSwgTUQ dTV6yAJ6hLYUnNa6WZGOl bTZHHQF4PY8lHObnLARrJ 2PgD6JgbxU9t4bnkMolo1 MucMBbEW1zyRYqZG4XQQO hcmQgDQpcZnMyMiANCn0= Disclaimer (test code = [id number]) g9rgrZEkNNKae1jjTKWrk GFuZzEwMzNcZnRuYmpcdW BqEAorjkPmWYdrh3CrK1A yMjAwMFxhbnNpXGRlZmxh umnyVVUhFFK1eeMlHMQjU CkxFYSdLGukKk5feOTjzD vdMwFmVJVaq5bracDDXOu mFzFfL132AHIyNTdql5en h2LcFBInuRAso7U3OCWTl efhhKu9uXphC88hg6J2Xg irE5rpHCCzZVZeI0GaBH5 tIRYrWew9DCJ7TVJ3KDZm BMJlY1FzRB9qRUPgfYUpM Yv7a1psaVyoPSGkGZH9v7 zcIZnyzzOoJN6nlr4muFl 2w9lzzcGlIADsJXTjtLML RKOeT8QmxWrnZa5pqSa2g CoaThlaVDB2Bsb4BI6uzl 38gmu4fLgvUAZqlewoObG 2XAedQSAlcetgFHh2SJbc GMTylFK8GIKzqEFxZ1ZqD QTjQS7exne7JXT4ZAouJM HqWyR7OZJtpWRfEEUpzKr aXHqwc445GUE8MpZaAD9v P1Srr3E8eB0onXVfWJEwt HAfQaXoIKFzbo9boRRmGP dje1YtKYK7mfU0nQZvmKW mMYRcQN76Xsljq9CaMhzv v0ZwT48wnJM8LCgtx2tgI Q8eZoU1tdPcBZgwz1qcgZ 5sAaR7UObrOY5qRR1yYMD tjZ9zqswbXQBoMpNihwxb REKrnNxsvsYyVa2hjUjoS KW0VTuiV4mkoC5jRmF3BL yrM1dvcT6rTFb4TVymiBY 8RRBspV2qKA3bwxzmf6tb EXtmMAkgABNltyP4ulB5T JItlVPhV4BbsW6hEGCsYC 1rqevhc5mwIUB5TEmiPLZ wEWL2NfLjBUDvy2Xszqi6 ZdYwl6FhqTMtFVpsD44nk 908KMGnscElX5vyeIVmmn myhAWmecojXAynjhF2RRR jynArk7CyISLfVXR4DElj GAhxwZSpHAAxdBqyu7jcW 3RscGFyXHBsYWluXGYxXG ZzMjBcbGFuZzEwMzNcaGl jaFxmMVxkYmNoXGYxXGxv M1ouAsXbB3UbCDGxCtHww FNsH1onWTxjqdXqGBKokj YduFR2OZomV6f0KRLafvW smTt6kwOfEqYzWIZcXHQ4 HElhtDJyWZRnx4Nponeum QIgOi1kuZJxJLXwnM0dMX ZySPRvRNsmWR8wiLg3AKB TeUUmwIEpAcCDLTZkRZ50 hiVrSJWUifyhu0E3MGykU PEue4LknQNiH5coc7MzTL Ich56dEH7gk8K0t6svHZB 3SG4uq7YeMOWrqMOlvRMj XYOmr1Wzzkepj5MwBXPun tZxc3PbMBHayoAmpCDkPA HhvsJzcm1onsFeXUZxXKB oK2NusrvsrUxcwvAlCNPs ey1yrtQpUFH3LBVXYIIeY LUnz0HufE3wiEYDJAL0nO Itcl1eakWEjBLhNWYjpg1 5YVThUR5sX8gaXRLrGGKl zjCgzJKqm9InFSPgnCF3p MDqNE9HEiNKy47mFYAfFF IVgkNxEEAozZifzSX6jqY 9tM8zXOpQJUXlQzc+IFRo PKKHGZWsHS1enbJcs3Afw sHcsDnuIYUszMWzd2DieG Ivy1RjyJfyj2TfqUSlxGB lZU5kABBzfvmjNMYlGPLF SnAYQURuzpW9y7CaYTCmD NKeRFB6tJnldpc6JAOzdU 8fGIEtW9lbmysaCZfeRUF rt1EmyO3vbOVIdBGvs9Jn sJVhnGLMaJBlNV4otfQhI KzVAFeZQXE6urBzTOUil9 EbIElqJ6igA05oxFyvyXs 7eWA0DMO6jD8zTdm+IFxw YXJccGFyIEFwcHJvcHJpY RTexJzmcyDnR1FgyrSgfL 0ilGQkgjKpAL2vKP6bB3I 6xOHxXBOnrpOye8dfUHqi dmUgYmVlbiByZXZpZXdlZ TQuy9ElBGgjRAE1QZkbzz BpbmNsdWRpbmcgSCZFLCB JgCJyyOCuPHC5TMqtugFu nxDwSK2ruZ9wxEnclE8hw ZKamHO1ighxVYJsYMUmuE thNRRzFK0mcBvdhO0yRfB eSaWnOYzbLL3vNBSiN3ts iJBkYMMhHGYmR3taPmCrn V0ejXpaVXyrMsCcWjAjLZ xwYXJccGFyXHBsYWluXGY xXGZzMjBcbGFuZzEwMzNc aGljaFxmMVxkYmNoXGYxX ZadN1vmAiZbG0TwAGZaRa HrsGCtM9mfOEukLZO1RNT tBG2qnYVmIU33pDNjw4sf BNnexZvpwv4cS94tmEKhA JrytXpiPFOij88ah7DuKK HmkwLzvw7iFNNgqwL7lJ7 sZSBzbGlkZSBpbWFnZXMg i6AoRCyosTCeeeCeBFhbS AToZCTsuRSekpR5hdMzcq WgmsDzMMMsqAixQZUur0P nWXGyJBnkg1Arla7cgKIh VARbuhLPyOchgQJpbF5uI 4WdADFyOEBzkf8tMCBbvJ 4aZNvkd6CcgeviPGLmGRR qMZQjocScrx5xFYZtsOOD ME7JVHjbsPOyh9TmryPhI 4hCFFI5YRXhQeTtLquwCL XasZApoCSzRCOrmx42MCD bzV1ojTtcMQDbxG8bdQ3m iQgzkC5kKgHyUhYxALujQ E1aIYNsW1zqdFHyTLAzGW WgC3lhCiTniP6tzCrxKJl qWdXbLgUwNJggIMG1wG== Embedded Images (test code = 9085175598) [facility] GLUCOSE (AUTOMATED)2023-04-03 20:21:51* Test Item Value Reference Range Interpretation Comme nts POCT GLU (test code = 4312404302) 92 mg/dL 70-110 Lab Interpretation (test cod e = 93449-5) Normal [facility] GLUCOSE (AUTOMATED)2023-04-03 20:21:51* Test Item Value Reference Range Interpretation Comme nts POCT GLU (test code = 1336040797) 92 mg/dL 70-110 Lab Interpretation (test cod e = 06173-6) Normal [facility] GLUCOSE (AUTOMATED)2023-04-03 20:21:51* Test Item Value Reference Range Interpretation Comme nts POCT GLU (test code = 2161421124) 92 mg/dL 70-110 Lab Interpretation (test cod e = 61763-0) Normal [facility] GLUCOSE (AUTOMATED)2023-04-03 17:40:28* Test Item Value Reference Range Interpretation Comme nts POCT GLU (test code = 2246001964) 81 mg/dL 70-110 Lab Interpretation (test cod e = 81238-1) Normal [facility] GLUCOSE (AUTOMATED)2023-04-03 17:40:28* Test Item Value Reference Range Interpretation Comme nts POCT GLU (test code = 6516294078) 81 mg/dL 70-110 Lab Interpretation (test cod e = 00657-0) Normal [facility] GLUCOSE (AUTOMATED)2023-04-03 17:40:28* Test Item Value Reference Range Interpretation Comme nts POCT GLU (test code = 8355043582) 81 mg/dL 70-110 Lab Interpretation (test cod e = 11377-6) Normal [facility] GLUCOSE (AUTOMATED)2023-04-03 13:06:17* Test Item Value Reference Range Interpretation Comme nts POCT GLU (test code = 1349144253) 81 mg/dL 70-110 Lab Interpretation (test cod e = 46847-3) Normal [facility] GLUCOSE (AUTOMATED)2023-04-03 13:06:17* Test Item Value Reference Range Interpretation Comme nts POCT GLU (test code = 3350797474) 81 mg/dL 70-110 Lab Interpretation (test cod e = 43535-9) Normal [facility] GLUCOSE (AUTOMATED)2023-04-03 13:06:17* Test Item Value Reference Range Interpretation Comme nts POCT GLU (test code = 8883486114) 81 mg/dL 70-110 Lab Interpretation (test cod e = 49076-7) Normal [facility] GLUCOSE (AUTOMATED)2023-04-03 02:58:53* Test Item Value Reference Range Interpretation Comme nts POCT GLU (test code = 2332865338) 196 mg/dL 70-110 H Lab Interpretation (test cod e = 47703-8) Abnormal [facility] GLUCOSE (AUTOMATED)2023-04-03 02:58:53* Test Item Value Reference Range Interpretation Comme nts POCT GLU (test code = 0431797938) 196 mg/dL 70-110 H Lab Interpretation (test cod e = 69529-3) Abnormal [facility] GLUCOSE (AUTOMATED)2023-04-03 02:58:53* Test Item Value Reference Range Interpretation Comme nts POCT GLU (test code = 4736752447) 196 mg/dL 70-110 H Lab Interpretation (test cod e = 51371-8) Abnormal [facility] GLUCOSE (AUTOMATED)2023-04-02 21:56:33* Test Item Value Reference Range Interpretation Comme nts POCT GLU (test code = 3253630517) 185 mg/dL 70-110 H Lab Interpretation (test cod e = 27315-3) Abnormal [facility] GLUCOSE (AUTOMATED)2023-04-02 21:56:33* Test Item Value Reference Range Interpretation Comme nts POCT GLU (test code = 7556406621) 185 mg/dL 70-110 H Lab Interpretation (test cod e = 53125-4) Abnormal [facility] GLUCOSE (AUTOMATED)2023-04-02 21:56:33* Test Item Value Reference Range Interpretation Comme nts POCT GLU (test code = 6460315608) 185 mg/dL 70-110 H Lab Interpretation (test cod e = 35207-5) Abnormal [facility] GLUCOSE (AUTOMATED)2023-04-02 17:04:54* Test Item Value Reference Range Interpretation Comme nts POCT GLU (test code = 9883999840) 264 mg/dL 70-110 H Lab Interpretation (test cod e = 25380-3) Abnormal [facility] GLUCOSE (AUTOMATED)2023-04-02 17:04:54* Test Item Value Reference Range Interpretation Comme nts POCT GLU (test code = 9400392436) 264 mg/dL 70-110 H Lab Interpretation (test cod e = 11642-8) Abnormal [facility] GLUCOSE (AUTOMATED)2023-04-02 17:04:54* Test Item Value Reference Range Interpretation Comme nts POCT GLU (test code = 3025311202) 264 mg/dL 70-110 H Lab Interpretation (test cod e = 25289-1) Abnormal [facility] GLUCOSE (AUTOMATED)2023-04-02 12:46:52* Test Item Value Reference Range Interpretation Comme nts POCT GLU (test code = 3914359333) 139 mg/dL 70-110 H Lab Interpretation (test cod e = 06849-3) Abnormal [facility] GLUCOSE (AUTOMATED)2023-04-02 12:46:52* Test Item Value Reference Range Interpretation Comme nts POCT GLU (test code = 8668049324) 139 mg/dL 70-110 H Lab Interpretation (test cod e = 16239-7) Abnormal [facility] GLUCOSE (AUTOMATED)2023-04-02 12:46:52* Test Item Value Reference Range Interpretation Comme nts POCT GLU (test code = 2513208507) 139 mg/dL 70-110 H Lab Interpretation (test cod e = 68684-3) Abnormal [facility] GLUCOSE (AUTOMATED)2023-04-02 02:52:15* Test Item Value Reference Range Interpretation Comme nts POCT GLU (test code = 7426027676) 247 mg/dL 70-110 H Lab Interpretation (test cod e = 91854-0) Abnormal [facility] GLUCOSE (AUTOMATED)2023-04-02 02:52:15* Test Item Value Reference Range Interpretation Comme nts POCT GLU (test code = 9084899354) 247 mg/dL 70-110 H Lab Interpretation (test cod e = 39160-1) Abnormal [facility] GLUCOSE (AUTOMATED)2023-04-02 02:52:15* Test Item Value Reference Range Interpretation Comme nts POCT GLU (test code = 1526796970) 247 mg/dL 70-110 H Lab Interpretation (test cod e = 27521-5) Abnormal [facility] GLUCOSE (AUTOMATED)2023-04-01 21:00:56* Test Item Value Reference Range Interpretation Comme nts POCT GLU (test code = 6912102449) 231 mg/dL 70-110 H Lab Interpretation (test cod e = 02271-1) Abnormal [facility] GLUCOSE (AUTOMATED)2023-04-01 21:00:56* Test Item Value Reference Range Interpretation Comme nts POCT GLU (test code = 7491146691) 231 mg/dL 70-110 H Lab Interpretation (test cod e = 33662-6) [facility] 21:00:56* Test Item Value Reference Range Interpretation Comme nts POCT GLU (test code = 3076773963) 231 mg/dL 70-110 H Lab Interpretation (test cod e = 88239-7) [facility] 17:19:17* Test Item Value Reference Range Interpretation Comme nts POCT GLU (test code = 9515797682) 291 mg/dL 70-110 H Lab Interpretation (test cod e = 16603-6) Abnormal [facility] GLUCOSE (AUTOMATED)2023-04-01 17:19:17* Test Item Value Reference Range Interpretation Comme nts POCT GLU (test code = 9989289352) 291 mg/dL 70-110 H Lab Interpretation (test cod e = 56387-4) Abnormal [facility] GLUCOSE (AUTOMATED)2023-04-01 17:19:17* Test Item Value Reference Range Interpretation Comme nts POCT GLU (test code = 4129177977) 291 mg/dL 70-110 H Lab Interpretation (test cod e = 55195-9) Abnormal [facility] GLUCOSE (AUTOMATED)2023-04-01 17:19:17* Test Item Value Reference Range Interpretation Comme nts POCT GLU (test code = 9916692911) 291 mg/dL 70-110 H Lab Interpretation (test cod e = 97669-6) Abnormal [facility] GLUCOSE (AUTOMATED)2023-04-01 13:53:20* Test Item Value Reference Range Interpretation Comme nts POCT GLU (test code = 9180379974) 250 mg/dL 70-110 H Lab Interpretation (test cod e = 17174-3) Abnormal [facility] GLUCOSE (AUTOMATED)2023-04-01 13:53:20* Test Item Value Reference Range Interpretation Comme nts POCT GLU (test code = 3449967212) 250 mg/dL 70-110 H Lab Interpretation (test cod e = 37114-5) Abnormal [facility] GLUCOSE (AUTOMATED)2023-04-01 13:53:20* Test Item Value Reference Range Interpretation Comme nts POCT GLU (test code = 5532388221) 250 mg/dL 70-110 H Lab Interpretation (test cod e = 03735-1) Abnormal [facility] GLUCOSE (AUTOMATED)2023-04-01 13:53:20* Test Item Value Reference Range Interpretation Comme nts POCT GLU (test code = 2258276550) 250 mg/dL 70-110 H Lab Interpretation (test cod e = 03303-9) Abnormal [facility] GLUCOSE (AUTOMATED)2023-04-01 01:26:46* Test Item Value Reference Range Interpretation Comme nts POCT GLU (test code = 4246113740) 220 mg/dL 70-110 H Lab Interpretation (test cod e = 88354-2) Abnormal [facility] GLUCOSE (AUTOMATED)2023-04-01 01:26:46* Test Item Value Reference Range Interpretation Comme nts POCT GLU (test code = 8152340954) 220 mg/dL 70-110 H Lab Interpretation (test cod e = 58308-8) Abnormal [facility] GLUCOSE (AUTOMATED)2023-04-01 01:26:46* Test Item Value Reference Range Interpretation Comme nts POCT GLU (test code = 9364753348) 220 mg/dL 70-110 H Lab Interpretation (test cod e = 98702-1) Abnormal [facility] GLUCOSE (AUTOMATED)2023-04-01 01:26:46* Test Item Value Reference Range Interpretation Comme nts POCT GLU (test code = 1153522570) 220 mg/dL 70-110 H Lab Interpretation (test cod e = 22427-5) [facility]CA2[facility]-04-01 00:48:16* Test Item Value Reference Range Interpretation Comme nts PH (test code = 2) 7.36 7.35-7.45 PCO2 (test code = 2806571183) 37 See_Comment [Automated messa ge] The system which generated this result transmitted reference range: 35 - 45 mmHg. The reference range was not used to interpret this result as normal/abnormal. PO2 (test code = 0324319008) 134 See_Comment H [Automated messa ge] The system which generated this result transmitted reference range: 80 - 100 mmHg. The reference range was not used to interpret this result as normal/abnormal. HCO3 (test code = 5672668472) 20 See_Comment L [Automated messa ge] The system which generated this result transmitted reference range: 22 - 26 mEq/L. The reference range was not used to interpret this result as normal/abnormal. BE (test code = 1005177408) -4.5 See_Comment L [Automated messa ge] The system which generated this result transmitted reference range: -3.0 - 3.0 mEq/L. The reference range was not used to interpret this result as normal/abnormal. THB (test code = 0291483418) 13.5 g/dL 12.0-16.0 %O2HB (test code = 9857367591) 97.6 % 94.0-99.0 %COHB ART (test code = 2137483404) 0.5 % 0.0-1.5 %METHB ART (test code = 8487400827) 0.4 % 0.4-1.5 VOL%O2 ART (test code = 1298872057) 18.7 % 15.0-23.0 QUES NA (test code = 9693210317) 136 mmol/L 135-145 K+ (test code = 4464608482) 4.0 mmol/L 3.5-5.0 AC CA IONZ (test code = 6247020232) 4.80 mg/dL 4.50-5.30 GLUCOSE (test code = 6129543869) 115 mg/dL 70-110 H Lab Interpretation (test code = 65844-2) [facility]CA2+2023-04-01 00:48:16* Test Item Value Reference Range Interpretation Comme nts PH (test code = 2) 7.36 7.35-7.45 PCO2 (test code = 9102389573) 37 See_Comment [Automated messa ge] The system which generated this result transmitted reference range: 35 - 45 mmHg. The reference range was not used to interpret this result as normal/abnormal. PO2 (test code = 7063702946) 134 See_Comment H [Automated messa ge] The system which generated this result transmitted reference range: 80 - 100 mmHg. The reference range was not used to interpret this result as normal/abnormal. HCO3 (test code = 9225672081) 20 See_Comment L [Automated messa ge] The system which generated this result transmitted reference range: 22 - 26 mEq/L. The reference range was not used to interpret this result as normal/abnormal. BE (test code = 9256476944) -4.5 See_Comment L [Automated messa ge] The system which generated this result transmitted reference range: -3.0 - 3.0 mEq/L. The reference range was not used to interpret this result as normal/abnormal. THB (test code = 7356636341) 13.5 g/dL 12.0-16.0 %O2HB (test code = 9563151130) 97.6 % 94.0-99.0 %COHB ART (test code = 3170799435) 0.5 % 0.0-1.5 %METHB ART (test code = 3113813614) 0.4 % 0.4-1.5 VOL%O2 ART (test code = 8810922026) 18.7 % 15.0-23.0 QUES NA (test code = 2003203600) 136 mmol/L 135-145 K+ (test code = 2932589394) 4.0 mmol/L 3.5-5.0 AC CA IONZ (test code = 2932704233) 4.80 mg/dL 4.50-5.30 GLUCOSE (test code = 5821699825) 115 mg/dL 70-110 H Lab Interpretation (test code = 92640-4) [facility]U+CA2+2023-04-01 00:48:16* Test Item Value Reference Range Interpretation Comme nts PH (test code = 2) 7.36 7.35-7.45 PCO2 (test code = 9822343277) 37 See_Comment [Automated messa ge] The system which generated this result transmitted reference range: 35 - 45 mmHg. The reference range was not used to interpret this result as normal/abnormal. PO2 (test code = 3249409492) 134 See_Comment H [Automated messa ge] The system which generated this result transmitted reference range: 80 - 100 mmHg. The reference range was not used to interpret this result as normal/abnormal. HCO3 (test code = 6900328351) 20 See_Comment L [Automated messa ge] The system which generated this result transmitted reference range: 22 - 26 mEq/L. The reference range was not used to interpret this result as normal/abnormal. BE (test code = 3570078056) -4.5 See_Comment L [Automated messa ge] The system which generated this result transmitted reference range: -3.0 - 3.0 mEq/L. The reference range was not used to interpret this result as normal/abnormal. THB (test code = 3003973716) 13.5 g/dL 12.0-16.0 %O2HB (test code = 9406337901) 97.6 % 94.0-99.0 %COHB ART (test code = 5800355172) 0.5 % 0.0-1.5 %METHB ART (test code = 9403930559) 0.4 % 0.4-1.5 VOL%O2 ART (test code = 3156407061) 18.7 % 15.0-23.0 QUES NA (test code = 2679335729) 136 mmol/L 135-145 K+ (test code = 0361184009) 4.0 mmol/L 3.5-5.0 AC CA IONZ (test code = 1090575524) 4.80 mg/dL 4.50-5.30 GLUCOSE (test code = 0301196388) 115 mg/dL 70-110 H Lab Interpretation (test code = 90176-9) [facility]+K+GLU+CA2+2023-04-01 00:48:16* Test Item Value Reference Range Interpretation Comme nts PH (test code = 2) 7.36 7.35-7.45 PCO2 (test code = 0662958291) 37 See_Comment [Automated messa ge] The system which generated this result transmitted reference range: 35 - 45 mmHg. The reference range was not used to interpret this result as normal/abnormal. PO2 (test code = 9526428533) 134 See_Comment H [Automated messa ge] The system which generated this result transmitted reference range: 80 - 100 mmHg. The reference range was not used to interpret this result as normal/abnormal. HCO3 (test code = 3360830670) 20 See_Comment L [Automated messa ge] The system which generated this result transmitted reference range: 22 - 26 mEq/L. The reference range was not used to interpret this result as normal/abnormal. BE (test code = 3009116622) -4.5 See_Comment L [Automated messa ge] The system which generated this result transmitted reference range: -3.0 - 3.0 mEq/L. The reference range was not used to interpret this result as normal/abnormal. THB (test code = 5443104365) 13.5 g/dL 12.0-16.0 %O2HB (test code = 3399238585) 97.6 % 94.0-99.0 %COHB ART (test code = 1872040970) 0.5 % 0.0-1.5 %METHB ART (test code = 5313090776) 0.4 % 0.4-1.5 VOL%O2 ART (test code = 2114457763) 18.7 % 15.0-23.0 QUES NA (test code = 7214515621) 136 mmol/L 135-145 K+ (test code = 8504230570) 4.0 mmol/L 3.5-5.0 AC CA IONZ (test code = 4063176493) 4.80 mg/dL 4.50-5.30 GLUCOSE (test code = 9704728768) 115 mg/dL 70-110 H Lab Interpretation (test code = 49380-5) Abnormal [facility] GLUCOSE (AUTOMATED)2023-03-31 22:33:04* Test Item Value Reference Range Interpretation Comme [facility] POCT GLU (test code = 0317748139) 159 mg/dL 70-110 H Lab Interpretation (test cod e = 41430-0) Abnormal [facility] GLUCOSE (AUTOMATED)2023-03-31 22:33:04* Test Item Value Reference Range Interpretation Comme nts POCT GLU (test code = 1020174489) 159 mg/dL 70-110 H Lab Interpretation (test cod e = 20256-9) Abnormal [facility] GLUCOSE (AUTOMATED)2023-03-31 22:33:04* Test Item Value Reference Range Interpretation Comme nts POCT GLU (test code = 9997189095) 159 mg/dL 70-110 H Lab Interpretation (test cod e = 44793-4) Abnormal [facility] GLUCOSE (AUTOMATED)2023-03-31 22:33:04* Test Item Value Reference Range Interpretation Comme nts POCT GLU (test code = 2020357687) 159 mg/dL 70-110 H Lab Interpretation (test cod e = 77101-1) Abnormal [facility] GLUCOSE (AUTOMATED)2023-03-31 17:29:51* Test Item Value Reference Range Interpretation Comme nts POCT GLU (test code = 4286556223) 149 mg/dL 70-110 H Lab Interpretation (test cod e = 82931-5) Abnormal [facility] GLUCOSE (AUTOMATED)2023-03-31 17:29:51* Test Item Value Reference Range Interpretation Comme nts POCT GLU (test code = 5204281495) 149 mg/dL 70-110 H Lab Interpretation (test cod e = 40412-4) Abnormal [facility] GLUCOSE (AUTOMATED)2023-03-31 17:29:51* Test Item Value Reference Range Interpretation Comme nts POCT GLU (test code = 4865480805) 149 mg/dL 70-110 H Lab Interpretation (test cod e = 36644-5) Abnormal [facility] GLUCOSE (AUTOMATED)2023-03-31 17:29:51* Test Item Value Reference Range Interpretation Comme nts POCT GLU (test code = 5248774743) 149 mg/dL 70-110 H Lab Interpretation (test cod e = 15541-0) Abnormal [facility] GLUCOSE (AUTOMATED)2023-03-31 13:24:15* Test Item Value Reference Range Interpretation Comme nts POCT GLU (test code = 9982678131) 145 mg/dL 70-110 H Lab Interpretation (test cod e = 50306-5) Abnormal [facility] GLUCOSE (AUTOMATED)2023-03-31 13:24:15* Test Item Value Reference Range Interpretation Comme nts POCT GLU (test code = 5090265678) 145 mg/dL 70-110 H Lab Interpretation (test cod e = 98033-6) Abnormal [facility] GLUCOSE (AUTOMATED)2023-03-31 13:24:15* Test Item Value Reference Range Interpretation Comme [facility] POCT GLU (test code = 9757229477) 145 mg/dL 70-110 H Lab Interpretation (test cod e = 29945-2) [facility]-31 13:24:15* Test Item Value Reference Range Interpretation Comme [facility] POCT GLU (test code = 8694148331) 145 mg/dL 70-110 H Lab Interpretation (test cod e = 37562-6) Abnormal [facility] METABOLIC PANEL (NA, K, CL, CO2, GLUCOSE, BUN, CREATININE, CA)2023-03-31 09:20:08* Test Item Value Reference Range Interpretation Comme [facility] NA (test code = 4418107062) 139 mmol/L 135-145 K (test code = 0320929662) 3.9 mmol/L 3.5-5.0 CL (test code = 5212194081) 105 mmol/L 98-108 CO2 TOTAL (test code = 6828052682) 25 mmol/L 23-31 AGAP (test code = 0371146728) 9 2-16 BUN (test code = 5704742087) 26 mg/dL 7-23 H GLUCOSE (test code = 3925175926) 156 mg/dL 70-110 H CREATININE (test code = 9192278326) 0.81 mg/dL 0.50-1.04 CALCIUM (test code = 6590211487) 8.9 mg/dL 8.6-10.6 eGFR (test code = 5847015747) 68.2 mL/min/1.73m2 GARRICK (test code = GARRICK) [...] imaging tests). Lab Interpretation (test code = 17828-0) [facility] (NA, K, CL, CO2, GLUCOSE, BUN, CREATININE, CA)2023-03-31 09:20:08* Test Item Value Reference Range Interpretation Comme nts NA (test code = 8617870824) 139 mmol/L 135-145 K (test code = 3479555559) 3.9 mmol/L 3.5-5.0 CL (test code = 3854430468) 105 mmol/L 98-108 CO2 TOTAL (test code = 9178617926) 25 mmol/L 23-31 AGAP (test code = 0273094665) 9 2-16 BUN (test code = 5727601186) 26 mg/dL 7-23 H GLUCOSE (test code = 8293511888) 156 mg/dL 70-110 H CREATININE (test code = 8927675562) 0.81 mg/dL 0.50-1.04 CALCIUM (test code = 4476307064) 8.9 mg/dL 8.6-10.6 eGFR (test code = 7563307190) 68.2 mL/min/1.73m2 GARRICK (test code = GARRICK) [...] imaging tests). Lab Interpretation (test code = 72443-2) Abnormal [facility] METABOLIC PANEL (NA, K, CL, CO2, GLUCOSE, BUN, CREATININE, CA)2023-03-31 09:20:08* Test Item Value Reference Range Interpretation Comme nts NA (test code = 3822201910) 139 mmol/L 135-145 K (test code = 3151735310) 3.9 mmol/L 3.5-5.0 CL (test code = 8251895500) 105 mmol/L 98-108 CO2 TOTAL (test code = 4785231449) 25 mmol/L 23-31 AGAP (test code = 4311183848) 9 2-16 BUN (test code = 9344990353) 26 mg/dL 7-23 H GLUCOSE (test code = 1029709314) 156 mg/dL 70-110 H CREATININE (test code = 1804593235) 0.81 mg/dL 0.50-1.04 CALCIUM (test code = 3120251146) 8.9 mg/dL 8.6-10.6 eGFR (test code = 7307603237) 68.2 mL/min/1.73m2 GARRICK (test code = GARRICK) [...] imaging tests). Lab Interpretation (test code = 50404-3) Abnormal [facility] METABOLIC PANEL (NA, K, CL, CO2, GLUCOSE, BUN, CREATININE, CA)2023-03-31 09:20:08* Test Item Value Reference Range Interpretation Comme nts NA (test code = 5618176915) 139 mmol/L 135-145 K (test code = 6745789919) 3.9 mmol/L 3.5-5.0 CL (test code = 7558953325) 105 mmol/L 98-108 CO2 TOTAL (test code = 4439583212) 25 mmol/L 23-31 AGAP (test code = 8887949015) 9 2-16 BUN (test code = 4353063603) 26 mg/dL 7-23 H GLUCOSE (test code = 2814856564) 156 mg/dL 70-110 H CREATININE (test code = 2204731594) 0.81 mg/dL 0.50-1.04 CALCIUM (test code = [id number]) 8.9 mg/dL 8.6-10.6 eGFR (test code = 9048493853) 68.2 mL/min/1.73m2 GARRICK (test code = GARRICK) [...] imaging tests). Lab Interpretation (test code = 57880-7) [facility] [id number] 09:02:26* Test Item Value Reference Range Interpretation [facility] APTT Patient (test code = 3173-2) 28 See_Comment [Automated [employer]] The system which generated this result transmitted reference range: 26 - 36 Seconds. The reference range was not used to interpret this result as normal/abnormal. Lab Interpretation (test code = 64457-8) Normal [facility] / [id number] 09:02:26* Test Item Value Reference Range Interpretation [...] the indications. Lab Interpretation (test code = 25064-5) Normal [facility] [id number] 09:02:26* Test Item Value Reference Range Interpretation Comme nts APTT Patient (test code = 3173-2) 28 See_Comment [Automated messa ge] The system which generated this result transmitted reference range: 26 - 36 Seconds. The reference range was not used to interpret this result as normal/abnormal. Lab Interpretation (test code = 49191-8) Normal [facility] / [id number] 09:02:26* Test Item Value Reference Range Interpretation [...] the indications. Lab Interpretation (test code = 75879-0) Normal [facility] [id number] 09:02:26* Test Item Value Reference Range Interpretation Comme nts APTT Patient (test code = 3173-2) 28 See_Comment [Automated messa ge] The system which generated this result transmitted reference range: 26 - 36 Seconds. The reference range was not used to interpret this result as normal/abnormal. Lab Interpretation (test code = 03547-1) Normal [facility] / [id number] 09:02:26* Test Item Value Reference Range Interpretation [...] the indications. Lab Interpretation (test code = 90141-0) Normal [facility] [id number] 09:02:26* Test Item Value Reference Range Interpretation Comme [facility] APTT Patient (test code = 3173-2) 28 See_Comment [Automated messa ge] The system which generated this result transmitted reference range: 26 - 36 Seconds. The reference range was not used to interpret this result as normal/abnormal. Lab Interpretation (test code = 05267-4) Normal [facility] / [id number] 09:02:26* Test Item Value Reference Range Interpretation Comme [facility] PROTIME PATIENT (test code = 5964-2) [...] the indications. Lab Interpretation (test code = 01389-2) Normal [facility] WITH [id number] 08:50:07* Test Item Value Reference Range Interpretation Comme [facility] WBC (test code = 6690-2) 10.75 See_Comment [...] 33.7 g/dL 31.6-35.1 RDW-SD (test code = 97982-1) 41.9 fL 39.0-49.9 RDW-CV (test code = 788-0) 13.3 % 12.0-15.5 PLT (test code = 777-3) 212 See_Comment [Automated messa ge] The system which generated this result transmitted reference range: 166 - 358 10*3/?L. The reference range was not used to interpret this result as normal/abnormal. MPV (test code = 00401-5) 10.4 fL 9.5-12.9 NRBC/100 WBC (test code = 1352768323) 0.0 See_Comment [Automated [employer] ssage] The system which generated this result transmitted reference range: 0.0 - 10.0 /100 WBCs. The reference range was not used to interpret this result as normal/abnormal. NRBC x10^3 (test code = 4981903694) See_Comment [Automated [employer]] The system which generated this result transmitted reference range: 10*3/?L. The reference range was not used to interpret this result as normal/abnormal. GRAN MAT (NEUT) % (test code = 770-8) 54.8 % IMM GRAN % (test code = 5060440432) 0.30 % LYMPH % (test code = 736-9) 37.0 % MONO % (test code = 5905-5) 5.7 % EOS % (test code = 713-8) 1.5 % BASO % (test code = 706-2) 0.7 % GRAN MAT x10^3(ANC) (test code = 1810991305) 5.89 10*3/uL 1.88-7.09 IMM GRAN x10^3 (test code = 2651767108) 0.03 10*3/uL 0.00-0.06 LYMPH x10^3 (test code = 731-0) 3.98 10*3/uL 1.32-3.29 H MONO x10^3 (test code = 742-7) 0.61 10*3/uL 0.33-0.92 EOS x10^3 (test code = 711-2) 0.16 10*3/uL 0.03-0.39 BASO x10^3 (test code = 704-7) 0.08 10*3/uL 0.01-0.07 H Lab Interpretation (test code = 20963-7) Abnormal [facility] WITH [id number] 08:50:07* Test Item Value Reference Range Interpretation [...] 33.7 g/dL 31.6-35.1 RDW-SD (test code = 05722-6) 41.9 fL 39.0-49.9 RDW-CV (test code = 788-0) 13.3 % 12.0-15.5 PLT (test code = 777-3) 212 See_Comment [Automated messa ge] The system which generated this result transmitted reference range: 166 - 358 10*3/?L. The reference range was not used to interpret this result as normal/abnormal. MPV (test code = 19549-2) 10.4 fL 9.5-12.9 NRBC/100 WBC (test code = 9700564057) 0.0 See_Comment [Automated [employer] ssage] The system which generated this result transmitted reference range: 0.0 - 10.0 /100 WBCs. The reference range was not used to interpret this result as normal/abnormal. NRBC x10^3 (test code = 4610355151) See_Comment [Automated messa ge] The system which generated this result transmitted reference range: 10*3/?L. The reference range was not used to interpret this result as normal/abnormal. GRAN MAT (NEUT) % (test code = 770-8) 54.8 % IMM GRAN % (test code = 6129519764) 0.30 % LYMPH % (test code = 736-9) 37.0 % MONO % (test code = 5905-5) 5.7 % EOS % (test code = 713-8) 1.5 % BASO % (test code = 706-2) 0.7 % GRAN MAT x10^3(ANC) (test code = 8178718901) 5.89 10*3/uL 1.88-7.09 IMM GRAN x10^3 (test code = 4483501392) 0.03 10*3/uL 0.00-0.06 LYMPH x10^3 (test code = 731-0) 3.98 10*3/uL 1.32-3.29 H MONO x10^3 (test code = 742-7) 0.61 10*3/uL 0.33-0.92 EOS x10^3 (test code = 711-2) 0.16 10*3/uL 0.03-0.39 BASO x10^3 (test code = 704-7) 0.08 10*3/uL 0.01-0.07 H Lab Interpretation (test code = 67029-1) Abnormal [facility] WITH [id number] 08:50:07* Test Item Value Reference Range Interpretation [...] 33.7 g/dL 31.6-35.1 RDW-SD (test code = 65213-6) 41.9 fL 39.0-49.9 RDW-CV (test code = 788-0) 13.3 % 12.0-15.5 PLT (test code = 777-3) 212 See_Comment [Automated messa ge] The system which generated this result transmitted reference range: 166 - 358 10*3/?L. The reference range was not used to interpret this result as normal/abnormal. MPV (test code = 36467-5) 10.4 fL 9.5-12.9 NRBC/100 WBC (test code = 4049477699) 0.0 See_Comment [Automated [employer] ssage] The system which generated this result transmitted reference range: 0.0 - 10.0 /100 WBCs. The reference range was not used to interpret this result as normal/abnormal. NRBC x10^3 (test code = 5181498706) See_Comment [Automated messa ge] The system which generated this result transmitted reference range: 10*3/?L. The reference range was not used to interpret this result as normal/abnormal. GRAN MAT (NEUT) % (test code = 770-8) 54.8 % IMM GRAN % (test code = 7608882495) 0.30 % LYMPH % (test code = 736-9) 37.0 % MONO % (test code = 5905-5) 5.7 % EOS % (test code = 713-8) 1.5 % BASO % (test code = 706-2) 0.7 % GRAN MAT x10^3(ANC) (test code = 8883030242) 5.89 10*3/uL 1.88-7.09 IMM GRAN x10^3 (test code = 9694857609) 0.03 10*3/uL 0.00-0.06 LYMPH x10^3 (test code = 731-0) 3.98 10*3/uL 1.32-3.29 H MONO x10^3 (test code = 742-7) 0.61 10*3/uL 0.33-0.92 EOS x10^3 (test code = 711-2) 0.16 10*3/uL 0.03-0.39 BASO x10^3 (test code = 704-7) 0.08 10*3/uL 0.01-0.07 H Lab Interpretation (test code = 95690-9) Abnormal [facility] WITH [id number] 08:50:07* Test Item Value Reference Range Interpretation [...] 33.7 g/dL 31.6-35.1 RDW-SD (test code = 52096-4) 41.9 fL 39.0-49.9 RDW-CV (test code = 788-0) 13.3 % 12.0-15.5 PLT (test code = 777-3) 212 See_Comment [Automated [employer]] The system which generated this result transmitted reference range: 166 - 358 10*3/?L. The reference range was not used to interpret this result as normal/abnormal. MPV (test code = 67616-6) 10.4 fL 9.5-12.9 NRBC/100 WBC (test code = 2698996416) 0.0 See_Comment [Automated [employer] ssage] The system which generated this result transmitted reference range: 0.0 - 10.0 /100 WBCs. The reference range was not used to interpret this result as normal/abnormal. NRBC x10^3 (test code = 2005403293) See_Comment [Automated [employer]] The system which generated this result transmitted reference range: 10*3/?L. The reference range was not used to interpret this result as normal/abnormal. GRAN MAT (NEUT) % (test code = 770-8) 54.8 % IMM GRAN % (test code = 5713145187) 0.30 % LYMPH % (test code = 736-9) 37.0 % MONO % (test code = 5905-5) 5.7 % EOS % (test code = 713-8) 1.5 % BASO % (test code = 706-2) 0.7 % GRAN MAT x10^3(ANC) (test code = 4343110035) 5.89 10*3/uL 1.88-7.09 IMM GRAN x10^3 (test code = 8006916821) 0.03 10*3/uL 0.00-0.06 LYMPH x10^3 (test code = 731-0) 3.98 10*3/uL 1.32-3.29 H MONO x10^3 (test code = 742-7) 0.61 10*3/uL 0.33-0.92 EOS x10^3 (test code = 711-2) 0.16 10*3/uL 0.03-0.39 BASO x10^3 (test code = 704-7) 0.08 10*3/uL 0.01-0.07 H Lab Interpretation (test code = 84651-5) Abnormal [facility] GLUCOSE (AUTOMATED)2023-03-31 02:49:07* Test Item Value Reference Range Interpretation Comme nts POCT GLU (test code = 7085925804) 158 mg/dL 70-110 H Lab Interpretation (test cod e = 57621-8) [facility] 02:49:07* Test Item Value Reference Range Interpretation Comme nts POCT GLU (test code = 5575675860) 158 mg/dL 70-110 H Lab Interpretation (test cod e = 38755-6) [facility] 02:49:07* Test Item Value Reference Range Interpretation Comme nts POCT GLU (test code = 1629993187) 158 mg/dL 70-110 H Lab Interpretation (test cod e = 83658-9) Abnormal [facility] GLUCOSE (AUTOMATED)2023-03-31 02:49:07* Test Item Value Reference Range Interpretation Comme nts POCT GLU (test code = 4202851997) 158 mg/dL 70-110 H Lab Interpretation (test cod e = 44778-7) Abnormal [facility] GLUCOSE (AUTOMATED)2023-03-30 21:38:20* Test Item Value Reference Range Interpretation Comme nts POCT GLU (test code = 8352383607) 229 mg/dL 70-110 H Lab Interpretation (test cod e = 90252-4) Abnormal [facility] GLUCOSE (AUTOMATED)2023-03-30 21:38:20* Test Item Value Reference Range Interpretation Comme nts POCT GLU (test code = 7233805709) 229 mg/dL 70-110 H Lab Interpretation (test cod e = 27534-5) [facility] 21:38:20* Test Item Value Reference Range Interpretation Comme nts POCT GLU (test code = 5431716395) 229 mg/dL 70-110 H Lab Interpretation (test cod e = 71210-1) Abnormal [facility] GLUCOSE (AUTOMATED)2023-03-30 21:38:20* Test Item Value Reference Range Interpretation Comme nts POCT GLU (test code = 2394029470) 229 mg/dL 70-110 H Lab Interpretation (test cod e = 08879-8) [facility] 17:56:37* Test Item Value Reference Range Interpretation Comme nts POCT GLU (test code = 8618440288) 209 mg/dL 70-110 H Lab Interpretation (test cod e = 36501-8) [facility] 17:56:37* Test Item Value Reference Range Interpretation Comme nts POCT GLU (test code = 1968235190) 209 mg/dL 70-110 H Lab Interpretation (test cod e = 79265-0) [facility] 17:56:37* Test Item Value Reference Range Interpretation Comme nts POCT GLU (test code = 2766868280) 209 mg/dL 70-110 H Lab Interpretation (test cod e = 29278-7) Abnormal [facility] GLUCOSE (AUTOMATED)2023-03-30 17:56:37* Test Item Value Reference Range Interpretation Comme nts POCT GLU (test code = 5357339408) 209 mg/dL 70-110 H Lab Interpretation (test cod e = 64837-4) [facility] 13:03:11* Test Item Value Reference Range Interpretation Comme nts POCT GLU (test code = 0792994115) 139 mg/dL 70-110 H Lab Interpretation (test cod e = 89356-0) [facility] 13:03:11* Test Item Value Reference Range Interpretation Comme nts POCT GLU (test code = 7835229011) 139 mg/dL 70-110 H Lab Interpretation (test cod e = 77182-2) [facility] 13:03:11* Test Item Value Reference Range Interpretation Comme nts POCT GLU (test code = 1314685258) 139 mg/dL 70-110 H Lab Interpretation (test cod e = 87898-0) [facility] 13:03:11* Test Item Value Reference Range Interpretation Comme nts POCT GLU (test code = 7481093359) 139 mg/dL 70-110 H Lab Interpretation (test cod e = 67709-8) Abnormal [facility] GLUCOSE (AUTOMATED)2023-03-30 01:21:56* Test Item Value Reference Range Interpretation Comme nts POCT GLU (test code = 3081452839) 225 mg/dL 70-110 H Lab Interpretation (test cod e = 09239-4) Abnormal [facility] GLUCOSE (AUTOMATED)2023-03-30 01:21:56* Test Item Value Reference Range Interpretation Comme nts POCT GLU (test code = 0395700575) 225 mg/dL 70-110 H Lab Interpretation (test cod e = 74109-6) Abnormal [facility] GLUCOSE (AUTOMATED)2023-03-30 01:21:56* Test Item Value Reference Range Interpretation Comme nts POCT GLU (test code = 3138471502) 225 mg/dL 70-110 H Lab Interpretation (test cod e = 70349-8) Abnormal [facility] GLUCOSE (AUTOMATED)2023-03-30 01:21:56* Test Item Value Reference Range Interpretation Comme nts POCT GLU (test code = 2233985546) 225 mg/dL 70-110 H Lab Interpretation (test cod e = 22235-8) Abnormal [facility] GLUCOSE (AUTOMATED)2023-03-29 23:02:05* Test Item Value Reference Range Interpretation Comme nts POCT GLU (test code = 3251838771) 200 mg/dL 70-110 H Lab Interpretation (test cod e = 00308-0) Abnormal [facility] GLUCOSE (AUTOMATED)2023-03-29 23:02:05* Test Item Value Reference Range Interpretation Comme nts POCT GLU (test code = 9144702862) 200 mg/dL 70-110 H Lab Interpretation (test cod e = 14849-7) Abnormal [facility] GLUCOSE (AUTOMATED)2023-03-29 23:02:05* Test Item Value Reference Range Interpretation Comme nts POCT GLU (test code = 2247625368) 200 mg/dL 70-110 H Lab Interpretation (test cod e = 18422-9) Abnormal [facility] GLUCOSE (AUTOMATED)2023-03-29 23:02:05* Test Item Value Reference Range Interpretation Comme nts POCT GLU (test code = 9946202640) 200 mg/dL 70-110 H Lab Interpretation (test cod e = 95310-6) Abnormal [facility] GLUCOSE (AUTOMATED)2023-03-29 17:48:21* Test Item Value Reference Range Interpretation Comme nts POCT GLU (test code = 4482138145) 276 mg/dL 70-110 H Lab Interpretation (test cod e = 13406-4) Abnormal [facility] GLUCOSE (AUTOMATED)2023-03-29 17:48:21* Test Item Value Reference Range Interpretation Comme nts POCT GLU (test code = 7684904123) 276 mg/dL 70-110 H Lab Interpretation (test cod e = 93828-6) Abnormal [facility] GLUCOSE (AUTOMATED)2023-03-29 17:48:21* Test Item Value Reference Range Interpretation Comme nts POCT GLU (test code = 0005993671) 276 mg/dL 70-110 H Lab Interpretation (test cod e = 57011-1) Abnormal [facility] GLUCOSE (AUTOMATED)2023-03-29 17:48:21* Test Item Value Reference Range Interpretation Comme nts POCT GLU (test code = 2405651908) 276 mg/dL 70-110 H Lab Interpretation (test cod e = 20230-6) [facility] 15:52:57* Test Item Value Reference Range Interpretation Comme nts POCT GLU (test code = 9637712598) 228 mg/dL 70-110 H Lab Interpretation (test cod e = 65829-5) [facility] 15:52:57* Test Item Value Reference Range Interpretation Comme nts POCT GLU (test code = 1919258115) 228 mg/dL 70-110 H Lab Interpretation (test cod e = 78290-5) Abnormal [facility] GLUCOSE (AUTOMATED)2023-03-29 15:52:57* Test Item Value Reference Range Interpretation Comme nts POCT GLU (test code = 8248627931) 228 mg/dL 70-110 H Lab Interpretation (test cod e = 40227-7) [facility] 15:52:57* Test Item Value Reference Range Interpretation Comme nts POCT GLU (test code = 4730881279) 228 mg/dL 70-110 H Lab Interpretation (test cod e = 41712-9) [facility] 13:17:44* Test Item Value Reference Range Interpretation Comme nts POCT GLU (test code = 8163198821) 197 mg/dL 70-110 H Lab Interpretation (test cod e = 32587-5) [facility] 13:17:44* Test Item Value Reference Range Interpretation Comme nts POCT GLU (test code = 2762778475) 197 mg/dL 70-110 H Lab Interpretation (test cod e = 56288-7) Abnormal [facility] GLUCOSE (AUTOMATED)2023-03-29 13:17:44* Test Item Value Reference Range Interpretation Comme nts POCT GLU (test code = 4127501364) 197 mg/dL 70-110 H Lab Interpretation (test cod e = 27937-4) [facility] 13:17:44* Test Item Value Reference Range Interpretation Comme nts POCT GLU (test code = 5121527531) 197 mg/dL 70-110 H Lab Interpretation (test cod e = 59885-5) [facility] - [facility] [id number] 05:19:00* Test Item Value Reference Range Interpretation Comme nts ABO & RH (test code = 20) B POSITIVE IAT (test code = 1185) Negative [facility] and Screen - ONCE [id number] 05:19:00* Test Item Value Reference Range Interpretation Comme nts ABO & RH (test code = 20) B POSITIVE IAT (test code = 1185) Negative [facility] and Screen - ONCE [id number] 05:19:00* Test Item Value Reference Range Interpretation Comme nts ABO & RH (test code = 20) B POSITIVE IAT (test code = 1185) Negative [facility] and Screen - ONCE [id number] 05:19:00* Test Item Value Reference Range Interpretation Comme nts ABO & RH (test code = 20) B POSITIVE IAT (test code = 1185) Negative [facility] Consult Notes Date/Time Note Provider Source 2023-04-12 11:56:36 Associated Order(s): CONSULT FIRST AID TEACHER-ADULT Care Management Note 04/12/2023 11:56 AM Comments Reason for consult - please give recommendation or opinion on: please get patient a second nader J. Her current one is dirty If patient does not have an established provider for this service, please contact the provider on-call. Insurance will not cover cost of brace as brace was ordered on March 31, 2023. Yamel Hassan LMSW Retail Merchandising Manager [facility] Care Management [email or web address] [phone] Note: This SW is not assigned to this team and is providing weekend coverage. Please inquire with nursing staff or assigned care management Thu-Thursday as applicable for more information involving the patient's plan of care/discharge plan. [facility] 2023-04-12 10:02:33 Associated Order(s): CONSULT SURGICAL CO-MANAGEMENT (SCM) Re consult noted for urinary retention, agree with urology c/s, patinet would likely benefit from aguilar placement upon d/c with out patient follow up with urology, should also follow up with oncology and possibly supply controller/supply controller onc. Still stable for d/c from our standpoint, will s/o. Meds for d/c as below: sulfamethoxazole-trimethoprim, 1 tablet, BID- until 04/12/23 amLODIPine, 5 mg, DAILY insulin glargine, 60 Units, QHS losartan, 50 mg, DAILY omeprazole, 20 mg, DAILY tolterodine LA, 2 mg, DAILY insulin lispro (human), , TID MEALS+HS Januvia 50 mg Bowel and pain regimen per primary [facility] 2023-04-04 08:49:57 Associated Order(s): CONSULT MEDICAL ONCOLOGY HEMATOLOGY AND ONCOLOGY CONSULT NOTE Date of Service: 04/04/2023 Reason for Consultation: please give recommendation or opinion on: metastatic disease Referring Physician / Primary Service: MON[place] MARTINEZ Chief Complaint: Neck pain, RUE numbness Diagnosis: spinal canal stenosis. HPI Madeline Parks is a 78 year old /White [...] in a significant degree of spinal canal stenosis. During this hospitalization repeat MRI showed similar fracture to above and Signal alteration throughout the collapsed C5 vertebral body and the C6 Vertebra suspicious for a pathological fracture in the setting of potential metastatic disease or multiple myeloma. Biopsy taken at the time of surgery was consistent with metastatic breast cancer. Patient denies any personal cancer history or family history of malignancy. ONCOLOGY HISTORY: Oncology History No history exists. Review of Systems: A 10-system review was conducted and was negative except for what's noted in the HPI. The following systems were reviewed: Constitutional, cardiovascular, respiratory, gastrointestinal, genitourinary, musculoskeletal, neurologic, psychiatric, endocrinological, and hematological. HISTORIES: No past medical history on file. Past Surgical History: Procedure Laterality Date ANTERIOR CORPECTOMY N/A 03/31/2023 Surgeon: Natalie Ridley MD; Location: [facility] No family history on file. Social History Socioeconomic History Marital status: Spouse name: [...] Friends and Family: Not on file Attends Voodoo Services: Not on file Active Member of [...] the Last Year: No ALLERGIES No Known Allergies MEDICATIONS: Current Facility-Administered Medications: lactated ringers IV infusion [...] THROAT (PHENOL)) 1.4 % spray bottle 1 [place], 1 [place], Oral, PRN, Vikram Villanueva MD, 1 [place] at 04/03/23 1409 thrombin (recombinant) (RECOTHROM) topical [...] Dipti Gilman MD, 20 mg at 04/04/23 09 tolterodine LA (DETROL LA) 24 hr capsule 2 mg, 2 mg, Oral, DAILY, Dipti Gilman MD, 2 mg at 04/04/23 09 cyclobenzaprine (FLEXERIL) tablet 5 mg, 5 mg, [...] Nolan Moreland MD, 1 Units at 04/03/23 2143 PHYSICAL EXAM Wt Readings from Last 3 Encounters: 03/28/23 90.3 [...] Intake/Output Summary (Last 24 hours) at 04/04/2023 0850 Last data filed at 04/04/2023 0022 Gross per 24 hour Intake -- Output 700 ml Net -700 ml Performance status: ECOG 3 0: Fully active and able to carry all predisease performance without restriction. 1: Restricted in physically strenuous activity but ambulatory [...] Totally confined to bed or chair. Physical Exam Vitals reviewed. Constitutional: Appearance: She is obese. HENT: [...] normal. LABS/IMAGING - Reviewed; Pertinent results as below: Recent Labs 04/03/23 0438 WBC 13.78* HGB 12.0 PLT 186 MCV 84.7 ANC 7.72* Recent Labs 04/03/23 0438 NA 137 K 3.8 CL 102 TCO2 23 AGAP 12 BUN 21 CREAT 0.66 Recent Labs 04/03/23 0438 CA 8.6 No results for input(s): "ALB", "TPRO", "BILIT", "ALKPHOS", "AST", "ALT" in the last 72 hours. No results for input(s): "URICACID", "LDH" in the last 72 hours. ASSESSMENT: Madeline Parks is a 78 year old female with the following active problems: #Metastatic breast cancer (ER+/TX+/HER2-) #Bony metastatic disease #Pathologic vertebral fracture #Spinal stenosis During this hospitalization repeat MRI showed similar fracture to above and Signal alteration throughout the collapsed C5 vertebral body and the C6 Vertebra suspicious for a pathological fracture in the setting of potential metastatic disease or multiple myeloma. Biopsy taken at the time of surgery was consistent with metastatic breast cancer. - ER positive result with 95% tumor cells moderate nuclear staining Fina score 5 + 2 = 7 Internal control cells absent. - TX positive result with 90% tumor cells moderate nuclear staining Fina score 5 + 2 = 7 Internal control cells absent. - Her-2-lisseth negative (1+) of tumor cells membranous staining Chronic conditions #HTN #GERD #OA #IDDM - Per primary team and other consulting services PLANS / RECOMMENDATIONS: -No inpatient treatment recommended at this time. -Recommend outpatient PET scan and MRI brain for further staging workup. -Referral to [facility] oncology at discharge -Will plan on discussing further treatment options in the outpatient setting once patient has recovered from surgery. Hematology & Medical Oncology will continue to follow this patient with you. Thank you for involving us in the care of this interesting patient. Please call with any questions or concerns. Patient seen and discussed with Dr. Everett, Faculty. Richar Walsh, DO PGY4 Hematology/Oncology Fellow [facility] Dept of Hematology and Oncology Associated attestation - Hill Everett MD - 04/05/2023 12:43 PM CDT I personally examined the patient on 04/04/[address] Bangura's fellow note as written . I actively participated in the decision-making process. Please see the resident's note for additional details. Metastatic ER+ breast cancer found in bone Agree with NSG intervention Pt will benefit from outpatient PET CT and rad onc and med onc referrals Outpatient, will plan treatment likely with AI/Faslodex + CKD 4/6 inhib+ Bone agent IM-HEMATOLOGY & ONCOLOGY [facility] 2023-03-31 08:26:34 Associated Order(s): CONSULT FIRST AID TEACHER-ADULT Reason for consult - please give recommendation or opinion on: Patient needs [facility] [employer] Note Order and referral sent to [address] [address] F: [phone]. Care Management will follow up regarding delivery status. [email or web address] P: [phone] F: [phone] [facility] 2023-03-30 10:44:40 Associated Order(s): CONSULT ADULT OCCUPATIONAL THERAPY OT GENERAL EVALUATION Consult received via [employer], EMR reviewed and evaluation completed 03/30/23. Patient referred to occupational therapy for evaluation and treatment secondary to C5 compression fracture with bony retropulsion, spinal canal stenosis. Patient agreeable to participate in occupational therapy. In Consult from it was noted that patient has DM; Dysuria, HTN, GERD, OA and overactive bladder. Discharge Recommendations: Therapy Needs and Potential:- Patient would benefit from continued skilled occupational therapy services to address: Decline in basic activities of daily living, Decline in instrumental activities of daily living, Decreased endurance, Caregiver training, and cervical precautions - Patient demonstrates good potential to improve and meet therapy goals with further skilled occupational therapy services. - Patient appears motivated to improve their B/IADLs and return to their previous level of function. Challenges to Home Transition: - Requires physical assistance for BADLS - Requires physical assistance for IADLS - Requires supervision or verbal cues for BADLS - Decreased safety awareness/judgement - Increased risk of falls - Environmental barriers Equipment Recommendations:Long handled sponge, Long handled oracle distribution consultant, Sock aide, Bedside commode. Tub transfer bench if she remains in a setting with a combo tub. I certify that Madeline Parks is under my care and that I had a nojk-je-wygn encounter with this patient on: 03/30/23 . The primary reason for the durable medical equipment: for safety with toilet transfer secondary to 3 LOB during session I am recomending that, based on my findings, the following is medically necessary durable medical equipment: 3 in 1 bedside commode. Height: Ht Readings from Last 1 Encounters: 03/28/23 5' 3" (1.6 m) Weight: Wt Readings from Last 1 Encounters: 03/28/23 199 lb (90.3 kg) Duration of need: 99 months. Patient does not have access to regular toilet facilities because he/she is confined to: A single room. PLAN OF CARE: At least 3x/week, MD initially present for evaluation- reports plans for OR tomorrow. Precautions: Weight bearing status: Not assigned by MD in chart and will have patient follow NO heavy lifting until further discussion with MD occurs. General: PPE Utilized: Gloves, Fall, Cervical Spinal Precautions, and logroll Bracing: Cervical collar: [place] collar Current Occupational Performance and/or Treatment: AM-PAC 6 Clicks (Raw Score 0=Dependent, 24=Independent; Low function Raw Score 0= Dependent, 32=Independent): Raw Score - Daily Activity: 12 T-Scale Score - Daily Activity: 30.6 Feeding: Moderate Assistance, for Radha collar management and hygiene. Grooming: Moderate Assistance, assimilated from patient reaching towards collar to adjust. Toilet Transfer: Moderate Assistance, of cuing simulated from bedside chair. Functional Mobility: - Sit <> stand bedside chair: Min Assistance following one failed attempt secondary to knee buckling. - Functional Mobility for simulated toilet transfer: Moderate assistance with early descend due to knee buckling with Radha Collar and donned gaitbelt and RW for safety. - Sitting EOB <-> supine: Mod Assistance to use log roll technique. Patient/caregiver educated on:C-collar management, Compensatory techniques/adaptive strategies (log roll technique), Role of OT, Safety awareness, and Spinal precautions (no turning, twisting, or bending in the brace) - will need updated education once surgical plan is in place. Patient left supine in bed, Radha collar donned with call dunn in reach. R UE elevated and nursing notified . The following recommendations were provided to nursing: strapping placement for Radha Collar; assistance for OOB mobility including gait belt for safety (left patient her own gait belt in room for nursing to use); stand pivot transfer to bedside commode; Assistance with feeding and Ardha Collar hygiene. Please, see full evaluation below for more detail. OT EVALUATION: 78 year old female Admit date: 03/28/2023 Date of onset: per EMR ~1 month prior secondary to a fall into shower Admit Diagnosis: Cervical stenosis of spinal canal [M48.02] OT Diagnosis: Impaired BADL independence, and Impaired IADL independence PMH: No past medical history on file. PSH: No past surgical history on file. PAIN: Pain rating before treatment: 3, After treatment: 3 Nursing reported pain med given at ~8:00 a.m. OCCUPATIONAL ROLES/HOME ENVIRONMENT: Home environment: Lives alone in [facility], Upstairs apartment , and Elevator. Bathroom access: Yes Bathroom setup: Combo Occupation(s): Retired Function prior to admission: Household ambulation, Independent with BADLs, and recieves Assistance with IADLs: groceries are delivered and qngjjksc-vq-mhf assists with laundry Suspected ischemic or hemorraghic stroke patient: No Equipment prior to admission: 4 wheeled walker, Powered Chair, Shower chair , Wheelchair and cane PERFORMANCE SKILLS/FACTORS: UE Muscle Tone: bilateral WNL UE ROM: bilateral AROM WFL - did not take GOMEZ shoulders 90 degrees UE Strength: GOMEZ WFL grossly assessed at 3+/5, except shoulder flexion NT due to spinal precautions Hand dominance: right Dexterity/Coordination: bilateral Intact Endurance - Sitting: Fair Standing: Poor+ Sitting Balance - Static: Fair+ Dynamic: Fair Standing: Balance - Static Poor Dynamic: Poor + 3 failed attempts total with bedside mobility secondary to knee buckling Dizziness: No Skin Integrity: No breakdown noted - will need to monitor for Radha collar use Sensation: bilateral Intact to light touch Oral Motor: WFL Communication: Able to verbalize needs Yes Other: N/A Vision: WFL Yes Other: glasses or contacts Hearing: good; no issues reported COGNITION: Orientation: person, place, date/time, and situation Follows Commands: 1-step Yes Multi-step Yes Inconsistencies No Safety Awareness/Judgment: Requires frequent cueing and Impulsive PROBLEM LIST: Decreased independence with ADL, Impaired postural control, and Impaired safety awareness REHAB POTENTIAL/PROGNOSIS: good PATIENT/FAMILY GOALS: None reported at this time. TREATMENT/INTERVENTION PLAN: Patient/Caregiver Education, Equipment recommendations, Daily living activities, and compensatory techniques GOAL(S): By discharge, patient will increase independence in daily living skills as follows: 1 Patient will perform 3 in 1 BSC transfer with supervision. 2 Patient will perform feeding task with independence. 3 Patient will don/doff socks, underwear, and/or pants with independence using Long handled oracle distribution consultant, Sock aide as needed. 4 Patient will complete grooming tasks with independence while standing at the sink. 5 Patient will increase endurance for functional activity as evidenced by ability to sustain 30 minutes of active participation. 6 Patient/caregiver will verbalize/demonstrate understanding/proficiency in the following home programs: C-collar management, Compensatory techniques/adaptive strategies, and Spinal Precautions PATIENT-FAMILY TEACHING Patient provided with preferred teaching of verbal information and written information on C-collar management, Role of OT, and Spinal precautions. Shows readiness to learn. Verbal instruction, Written material, and Demonstration teaching provided. Individual is able to read and verbalizes understanding of teaching provided and needs reinforcement of teaching. Christoph Manzano OTR, OTD Please contact the Department of Rehabilitation Services at for questions or concerns during week day coverage. Total Timed Treatment Codes: 25 Min Total Treatment Time: 33 Min Complexity: High Shayne Manzano OT [facility] 2023-03-29 17:46:38 Formatting of this n ote might be different from the original. Reason for consult - please give recommendation or opinion on: Please assist with discharge planning when appropriate Care Management Social Functional Assessment Patient Name: Madeline Parks Age: [age] year old Sex: female Previous admit date: N/A Bedside SFA completed. Pt states she lives alone in her apartment, but her son Erik and daughter in law live in the apartment above hers and come down frequently to check on her. DC needs: F/U with PT/OT recs for DME. Pt may need a home health order&referral for PT depending on recs. Current diagnosis and co-morbidities: Cervical stenosis of spinal canal [M48.02] Readmission Questions: Was patient discharged from any acute care hospital within the last 30 days: No Alcohol Use Screening (AUDIT-C) Q1: How often do you have a drink containing alcohol?: Never SCORE: 1 Did patient elect to have resources provided: No Social Functional Assessment: Mental Status: Alert & Oriented to Person,Place & Time Information given by: Self Patient's support system and adult care manager: Child Name and phone number of primary caregiver/support system: Erik Parks (son) [phone] and his , Avis Parks (daughter) [phone] MPOA: No;Same as support system Living Arrangement: Apartment w/ elevator access Address of living arrangement : [address] [place] [id number] In the last 12 months, was there a time when you were not able to pay the mortgage or rent on time?: No In the last 12 months, how many places have you lived?: 2 In the last 12 months, was there a time when you did not have a steady place to sleep or slept in a prison (including now)?: No Persons living in home: Self Are you , , , , never , or living with a partner?: Patient refused In a typical week, how many times do you talk on the phone with family, friends, or neighbors?: More than three times a week Baseline functional assessment-ADLS: Dependent Baseline functional status- ambulation: Independent Functional status-baseline personal care: Independent Baseline functional status- driving: Dependent Baseline functional status- grocery shopping: Dependent Functional status-baseline housekeeping: Requires minimal to moderate assistance Functional status-baseline meal prep: Independent Current functional status same as prior: No Current functional status- ambulation: Requires minimal to moderate assistance Current functional status- personal care: Requires minimal to moderate assistance Current functional status- driving: Dependent Current functional status- grocery shopping: Dependent Current functional status-house keeping: Dependent Current functional status- meal preparation: Requires minimal to moderate assistance On average, how many days per week do you engage in moderate to strenuous exercise (like a brisk walk)?: 0 days On average, how many minutes do you engage in exercise at this level?: 0 min Do you have a PCP?: Yes Name of PCP: Dr. Rodolfo Hassan Home Health Care Agency: No Provider Services: No DME Company: No Equipment: Walker;Wheelchair: Manual;Scooter;Grab bars;Shower Chair Hemodialysis: No Community resources utilized: SSA/SSI/Medicaid;Food [place] Funding Resources: Managed Medicare Managed Medicare name and information: [facility] DUAL ACCESS OPEN PPO Prescription coverage plan: Commercial How hard is it for you to pay for the very basics like food, housing, medical care, and heating?: Not hard at all Within the past 12 months, you worried that your food would run out before you got the money to buy more.: Never true Within the past 12 months, the food you bought just didn't last and you didn't have money to get more.: Never true Anticipated services prior to disharge: Consult;Continue Medical Eval;Lab Values;PT/OT/ST;Reassess prior to discharge Expected mode of discharge transportation: Personal vehicle;Same as support system In the past 12 months, has lack of transportation kept you from medical appointments or from getting medications?: No In the past 12 months, has lack of transportation kept you from meetings, work, or from getting things needed for daily living?: No Additional info required for discharge planning: Pending medical evaluation;Pending P/T O/T recommendation Recommended discharge plan: Home with new Home Health SFA Complete: Social Functional Assessment complete: Yes Role of Care Management explained. Joanna Cardona RN, BSN, BC-RN Weekend Domestic Technician Thursday-Thursday 8A-8P only [facility] Care Management [phone] Pager- [phone] [facility] 2023-03-29 13:02:55 Associated Order(s): CONSULT SURGICAL CO-MANAGEMENT (SCM) Images from the original note were not included. Surgical Co-Management Hospitalist (SCM) Consult Service Initial Preoperative Consultation Note Patient: Madeline Parks Date of Consult: 03/29/2023 Referring Physician: Dr Nunes Reason for Consult: Perioperative risk assessment and medical optimization/co-management HPI: The patient is a 78-year-old female with history of type 2 diabetes on insulin, Jardiance, hypertension, hyperlipidemia, GERD, diabetic peripheral neuropathy who was transferred from [facility] due to concerns for cervical myelopathy/ C5 fx. Patient's son and jdfcsfuy-[id number] were at bedside help with history. They [...] any history of any cardiac disease or RI nor any CVA's. The patient moved to the [facility] approximate 1 year ago, prior to that she was living in [facility], she states she may have had a stress test about 2 years ago while in [facility] but is uncertain. She denies any chest pain shortness of breath with activity. The patient does not check her sugars very often but does take Lantus 80 units at bedtime. She utilizes the [facility] in [place]. The patient & family deny any hypoglycemic episodes. Pt and family note she has had recurrent UTIs and currently states she has burning with urination. SCM consulted for help with medical management. Proposed Surgery, Date: Possible cervical laminectomy In Addition: The patient does not have a history of complications with anesthesia or bleeding with prior surgeries. The patient does not have a history of venous thrombosis / pulmonary embolism Transfusion History: None HISTORIES (personally reviewed by me): Active Ambulatory Problems Diagnosis Date Noted No Active Ambulatory Problems Resolved Ambulatory Problems Diagnosis Date Noted No Resolved Ambulatory Problems No Additional Past Medical History No past surgical history on file. Social History Socioeconomic History Marital status: Spouse name: [...] Friends and Family: Not on file Attends Voodoo Services: Not on file Active Member of [...] No No family history on file. Home medications: Prior to Admission medications Not on File External medications were found from [facility] in [place] and reconciled as below Current Discharge Medication List STOP taking these medications acetaminophen-codeine 300-60 mg tablet Comments: Reason for Stopping: amLODIPine 5 mg tablet Comments: Reason for Stopping: BASAGLAR KWIKPEN U-100 INSULIN 100 unit/mL (3 [...] mg tablet Comments: Reason for Stopping: Current Medications: Scheduled meds:[START ON 03/30/2023] amLODIPine, 5 mg, DAILY insulin glargine, 60 Units, QHS [START ON 03/30/2023] losartan, 50 mg, DAILY [START ON 03/30/2023] omeprazole, 20 mg, DAILY [START ON 03/30/2023] tolterodine LA, 2 mg, DAILY cyclobenzaprine, 5 mg, TID docusate, 100 mg, DAILY enoxaparin (LOVENOX) SC Syringe, 40 mg, DAILY insulin lispro (human), , TID MEALS+HS IV meds: PRN meds:acetaminophen, 650 mg, Q6HPRN dextrose 50 % in water (D50W), 25 mL, PRN glucagon, 1 mg, PRN hydralAZINE, 10 mg, Q2HPRN labetaloL, 20 mg, Q15MIN PRN morpHINE, 2 mg, Q2HPRN ondansetron, 4 mg, Q6HPRN polyethylene glycol (MIRALAX, CLEARLAX, HEALTHYLAX) oral powder, 17 g, PRN - SEE INSTRUCTIONS ALLERGIES No Known Allergies REVIEW OF SYSTEMS All systems negative except as otherwise stated in HPI PHYSICAL EXAM BP 122/62 | Pulse 69 | Temp 36.7 ?C (98 ?F) | Resp 18 | Ht 1.6 m (5' 3") | Wt 90.3 kg (199 lb) | SpO2 96% | BMI 35.25 kg/m? Physical Exam Vitals reviewed. Constitutional: General: Patient is not in [...] Normal range of motion. Neck in cervical collar Skin: General: Skin is warm. Coloration: Skin is not jaundiced. Findings: No lesion. Neurological: General: No focal deficit present. Mental Status: patient is awake, alert, movies all extremities spontaneously, answers questions appropriately LABS/IMAGING - reviewed, recent results as below: Lab Results Component Value Date/Time NA 137 03/29/2023 [...] TROPNI 0.003 03/29/2023 06:20 AM Most Recent UA: No results found for: "UPROTEIN", "UPH", "UGLUCOSE", "UKETONES", "UBILI", "UBLOOD", "UUROBILIN", "ULEUKEST", "UNITRITE", "USPGRAV" Radiology (48 HRS): CT CERVICAL SPINE WO CONTRAST Result Date: 03/29/2023 1. No acute or adverse change compared to the prior exam. 2. Stable probable metastatic foci involving C5 and C6 with a stable pathologic fracture involving C5. 3. Stable mild-moderate regions of neural foramen stenosis as described above. 5. No critical regions of central spinal canal stenosis. AFC: [id number]. RL: 8228. Cardiographics (if applicable): ECG: Echo: Stress Test: CXR: PERIOPERATIVE RISK ASSESSMENT CALCUATIONS: All from calc, calculated today unless stated otherwise Functional Status/Newton Activity Score Index: 1.75 or 2.96 METs RCRI (Landa Index): 1, 6.0 % Brar Perioperative Risk of RI or Cardiac Arrest: 1.3 % risk of periop RI AUB-HAS2 Cardiac Calculator: 1, approx 1.6%risk of periop RI ARISCAT: Low risk ASSESSMENT & PLAN: C5 fracture with myelopathy DM2 with hyperglycemia Dysuria Chronic, stable conditions: HTN GERD OA Overactive bladder Frequent UTIs Patient with poor functional status and is at [...] diabetes requiring insulin, advanced age, poor functional status For cardiovascular risk assessment, per the [employer] guidelines, Proceed as scheduled without further testing or consultation Based on my assessment and experience, the patient's functional status is below average for their age and gender. Overall, the patient is considered High Risk for perioperative complications for the planned procedure. Therefore, Madeline Parks is considered medically optimized for the planned procedure: No* DVT Prophylaxis: Per Primary Code Status: presumed full Dispo: TBD Medical Barriers to discharge: workup, PT/OT, possible surgery Dipti Gilman MD, Surgical Co-Management Hospitalist [employer] General Internal Medicine Portions of this note were created using a voice-recognition transcribing system. Typographical errors and incorrect words or phrases may have been missed during proofreading. Please interpret accordingly. [facility] 2023-03-29 11:41:47 Associated Order(s): CONSULT FIRST AID TEACHER-ADULT Care Management Consult Consult received. Reason for consult: Please assess for discharge needs (SFA/DISPO) CM awaiting clinical notes for DC planning assessment. For urgent or immediate discharge needs please page on-call: [phone] Marion Nieves RN, MSN, ACM Weekend Domestic Technician Available Thu-Thursday only Office: [phone] Note: This CM is not assigned to this team and is providing weekend coverage. Please inquire with nursing staff or assigned care management Thu-Thursday as applicable for more information involving the patient's plan of care/discharge plan. Marion Nieves RN [facility] 2023-03-29 10:05:00 Associated Order(s): CONSULT ADULT PHYSICAL THERAPY Patient agreeable to working with physical therapy. Patient met supine. Recommend nursing staff utilize RW to safely assist patient with mobility out of the bed or chair. PHYSICAL THERAPY EVALUATION Consult received, chart reviewed and evaluation complete this date. Patient is referred to PT for evaluation and treatment. Patient is a 78 year old female who presents to hospital for Cervical stenosis of spinal canal [M48.02] . Neck Pain Spinal canal stenosis Discharge Recommendations: Therapy Needs and Potential: Patient would benefit from continued physical therapy services to address: decline in bed mobility decline in transfers decline in gait and/or balance decreased strength decreased endurance decreased coordination Patient demonstrates good potential to improve and meet therapy goals with further physical therapy services. Patient appears motivated to improve their functional mobility and return to their previous level of function. Challenges to Home Transition: increased risk of falls decreased caregiver availability decreased safety awareness environmental barriers Equipment recommendations: rolling walker Current Functional Status and/or Treatment: AM-PAC 6 Clicks (Raw Score 0=Dependent, 24=Independent; Low function Raw Score 0= Dependent, 32=Independent): Raw Score - Basic Mobility : 16 T-Scale Score - Basic Mobility : 38.32 Bed Mobility: Rolling: Minimal Assistance Supine-sit: Moderate Assistance Sitting balance Fair+ Sit to supine: Minimal Assistance Patient requires 50% verbal/ visual cues for proper/ hand foot placement and use of bed rails. Transfers: sit-stand: Minimal Assistance Stand to sit: Minimal Assistance using Rolling Walker Stand pivot transfer: Minimal Assistance Static/dynamic standing balance: Fair Ambulation: Assisted patient with ambulation as follows: 2MWT 50 feet using Rolling Walker and Minimal Assistance. Patient presenting with Step-to gait pattern. Instructed patient in directional changes and head movements in all planes during gait trial resulting in periods of instability and periods of LOB. Patient requires 50% verbal cues for proper hand/ foot placement and walking sequence. Therapeutic exercise: patient educated in Adaptive equipment , Deep breathing, Energy conservation, Fall prevention, General strengthening, Relaxation/breathing techniques, and Safety awareness., instructed patient in the following: ankle pumps, straight leg raises, seated marching, and patient/caregiver instructed to perform HEP 1-2 times per day, 10 repetitions. Functional Outcome Measures: (Values within the past 12 hours) Tinetti Gait Score- # / 12 Initiation of gait: Hesitancy or multiple attempts to start Step length: Only on foot passes the other Foot clearance: Only one foot clears the floor during swing phase Step Symmetry: Step lengths equal Step continuity: Stopping/dis-continuous steps Path: Marked deviation Trunk: Marked sway or uses AD Walking: Heels apart Tinetti Gait Score: 3 Tinetti Gait Score Interpretation: < 7 - Increased risk for falls TINETTI BALANCE SCORE- # / 16 Sitting balance: Steady, safe Arises: Able, uses arms to help Attempts to Rise: Able, requires > 1 Immediate standing balance (first 5 sec): Steady but uses walker or other support Standing Balance: Steady but SONY > 4 inches or uses AD/other support Nudged 3 times *: Staggers, grabs, catches self Eyes closed*: Steady Turning 360 degrees: Discontinuous steps and unsteady Sitting down: Uses arms or motion not smooth Tinetti Balance Score: 8 Tinetti Balance Interpretation: < 9 - Increased risk for falls 2MWT - please see gait section for details. After session, patient up in chair. Call button provided. Communicated with Nahun Issa and pct PLAN OF CARE: While in the hospital, PT will follow patient at least 3 times per week,once or twice a day, per patient's tolerance and needs. See below for complete details. Admit Date: 03/28/2023 Hospital Diagnosis:Cervical stenosis of spinal canal [M48.02] PT Diagnosis: Difficulty walking, Weakness, Pain, and Abnormality of gait and balance Weight Bearing Precaution: WBAT General Precautions: PPE used:Gloves, General, Fall,Purewick catheter, IV Bracing/Cast present or required:N/A PMH: No past medical history on file. PSH: No past surgical history on file. Prior Living Situation: lives alone and in a apartment, no steps, has an elevator. Daughter in law checks on her via phone and visits daily. DME: Four wheeled walker with seat Prior level of Mobility: house hold ambulation, ambulates with Four wheeled walker with seat Suspected ischemic or hemorraghic stroke:No Subjective: Reports no pain at rest on neck, c/o numbness of Right UE Patient/Family Goals: To get strong and stop falling. Patient/Family verbalizes understanding of condition: Yes PAIN: denies pain before and after session COMMUNICATION Primary Language: Monegasque Able to Verbalize needs: Yes Vision:glasses Hearing:hard of hearing ORIENTATION/COGNITION: Oriented to: person, place, date/time, and situation Awake: Yes Alert: Yes Dizzy: No Follows Commands: Yes 1-Step Yes Multi-Step No Inconsistent: No NEUROLOGICAL Light Touch: within functional limits bilateral LE Heel to alcantara: WFL Tone: WNL BALANCE: Sitting: Static: Fair+ Dynamic: Fair Standing: Static: Fair Dynamic: Poor+ RANGE OF MOTION: within functional limits bilateral LE STRENGTH: 3+/5 (F+), bilateral LE ENDURANCE: Fair, Room air SKIN INTEGRITY: not intact, please see nurses notes for details. PROBLEM LIST: Decline in bed mobility, Decline in gait, Decline in transfers, Decreased strength, Decreased endurance, Decreased balance, Safety awareness deficits, Pain, and Decreased Coordination ASSESSMENT: Patient is a 78 year old female seen secondary to the above listed diagnosis. Patient would benefit from continued PT to address the above listed deficits to maximize independence and safety with functional mobility. Rehabilitation Potential: fair Goals: The following goals are to maximize independence and safety with functional mobility to eventually return to prior living situation and prior functional status. Upon discharge, patient and/or family will demonstrate the followin. Rolling: Independent Supine-sit: Independent Sitting balance Excellent Sit to supine: Independent 2. sit-stand: Independent Stand to sit: Independent using Rolling Walker Stand pivot transfer: Independent 3. Independent with ambulation, Feet: 300 using least assistive device. 4. Demonstrate or verbalize understanding of home exercise program in order to continue with their rehab on their own. Treatment Plan: Gait training, Therapeutic exercise, Transfer training, Balance training, Bed mobility training, Equipment needs assessment, Safety education, patient/caregiver education, Pain management, and Neuromuscular Re-Education PATIENT EDUCATION: Patient provided with preferred teaching of verbal information and demonstration on role of PT, plan of care, DC plans. Shows readiness to learn. Verbal instruction and Demonstration teaching provided. Individual is able to read and verbalizes understanding of teaching provided and accurately returns demonstration of skill. Total Time Tx Codes in Minutes: 23 min Total Treatment Time in Minutes: 35 min Kurt Pitts PT, DPT [facility] - Health History and Physical Notes Date/Time Note Provider Source 2023-03-28 23:24:09 Formatting of this n ote is different from the original. NEUROSURGERY HISTORY AND PHYSICAL Attending Neurosurgeon: Dr. Nunes CC: Neck pain, RUE numbness HPI: Madeline Parks is a 78 year old female with a PMH of DM2, HTN, HLD who presents as a transfer from [facility] for an evaluation of neck pain and [...] BLE symptoms, changes in bowel or bladder habits. MRI cervical spine w/o contrast from 03/19/2023 showing a severe compression fracture of C5 with bony retropulsion, resulting in a significant degree of spinal canal stenosis. ROS (BOLDED IF POSITIVE - otherwise negative) Constitutional: Nausea, Vomiting, Fevers, Chills Eyes: Negative Ears, nose, mouth, and throat: Negative Endocrine: Negative Hematologic: Negative Card: Chest pain, Palpitations Pulm: Cough, Shortness of breath GI: Diarrhea, Constipation : Negative Integ: Masses, Rashes, Lesions Msk: Weakness, Neck pain Neuro: Headache, Vision changes, Dizziness, Weakness, Imbalance, RUE numbness Medications (Current) Antiplatelets: None Anticoagulation: None No current facility-administered medications on file prior to encounter. No current outpatient medications on file prior to encounter. Past Medical History: No past medical history on file. Past Surgical History: No past surgical history on file. Social History: Social History Tobacco Use Smoking status: Former Types: Cigarettes Smokeless tobacco: Never Family History: Not contributory PE Vitals: Vitals: 03/28/23 1812 03/28/23 1825 03/28/23 1915 [...] (199 lb) Height: 1.6 m (5' 3") Exam: Awake, alert, oriented x4 PERRL bilaterally at 3mm EOMI bilaterally Face symmetric UPPER EXTREMITY STRENGTH EXAM: R 5/5 5/5 5/5 5/5 5/5 D(C5) B(C6) T(C7) Park Guide(C8) I (T1) L 5/5 5/5 5/5 5/5 5/5 LOWER EXTREMITY STRENGTH EXAM: R 5/5 5/5 5/5 5/5 5/5 IP(L2) Q(L3) TA(L4) EHL(L5) G(S1) L 5/5 5/5 5/5 5/5 5/5 Numbness throughout RUE in a non-dermatomal fashion; sensation otherwise intact to LT throughout Exam deep tendon reflexes: 1+ patellars No clonus No Hurtado's Assessment: Madeline Parks is a 78 year old female who presents as a transfer from an OSH for an evaluation of neck pain and RUE numbness. MRI cervical spine w/o contrast from 03/19/2023 showing a severe compression fracture of C5 with bony retropulsion, resulting in a significant degree of spinal canal stenosis. Plan: Admission labs MRI cervical spine w/ w/o contrast CT cervical spine w/o contrast CT chest, abdomen, and pelvis w/ contrast ESR/CRP SCM consultation SBP goal <160 mmHg Regular diet SCDs, Lovenox Ambulate with assistance Nolan Moreland MD Neurosurgery For inquiries please page [phone] Associated attestation - Betito Nunes MD - 03/29/2023 11:00 AM CDT I personally evaluated and am primary in decision making on, Madeline Parks, and I agree with the documentation by neurosurgery resident, Nolan Sin MD. [facility] Notes Date/Time Note Provider Source 2023-04-22 14:59:28 Formatting of this n ote might be different from the original. Images from the original note were not included. Chelsea Smith MA [facility] 2023-04-21 15:55:32 Formatting of this n ote might be different from the original. Spoke with nurse at [place]-Working on getting photos uploaded Faxed orders & Face sheet Confirmation Received Chelsea Smith MA [facility] 2023-04-21 15:55:03 Formatting of this n ote might be different from the original. Dup Encounter-Closing Chelsea mSith MA [facility] 2023-04-21 15:38:29 Formatting of this n ote might be different from the original. Okay for [facility] wound care staff to remove patient's césar. Prefer for their team to send picture of incisions if possible. [facility] 2023-04-21 15:08:54 Formatting of this n ote might be different from the original. Attempted to return call, invalid number for RN at [phone] Billie Burk RN [facility] 2023-04-21 14:53:38 Formatting of this n ote might be different from the original. Madeline Parks is a 78 year old female Patient nurse is calling asking if she needs a new appointment for césar removal or if she can remove it. Please advice thank you Marion Benjamin V [facility] 2023-04-21 11:43:27 Formatting of this n ote might be different from the original. Preferred [facility] 2023-04-21 11:30:07 Formatting of this n ote might be different from the original. Madeline Parks is a 78 year old female Avis daughter in law calling states that [facility] is able to remove the césar for patient. They are in [place] and do not transport out of the [facility]. Patient will not be able to make her appt tomorrow. Please contact Wound Care at: PH: [phone] FAX: [phone] Pls advise, thanks. Yeimy Hay [facility] 2023-04-17 12:29:34 Formatting of this n ote might be different from the original. Spoke with daughter, she said hospital told her [...] that they have been closed out. Thanks! Anish Singh [facility] 2023-04-17 10:51:24 Formatting of this n ote might be different from the original. Please advise Liza Pate [facility] 2023-04-16 10:33:00 Formatting of this n ote might be different from the original. Madeline Parks is a 78 year old female daughter in law calling to schedule Oncology appointment. Please call [phone] Rebecca Suarez [facility] 2023-04-15 10:28:56 Formatting of this n ote is different from the original. TRANSITIONAL CARE MANAGEMENT ASSESSMENT 04/15/2023 Madeline Parks [id number] Madeline Parks is a 78 year old /White female was admitted on 03/28/[address] She was discharged on 04/14/23 with discharge disposition of HR- Routine Discharge. Admitting Physician: Betito Nunes Discharge Diagnosis: cervical myelopathy, spine metastasis No linked episodes TCM [id number]-[id number]-face outreach documentation: Discharge Assessment Chart Assessed: 04/15/23 Chart Reviewed - Post Discharge Call Deferred due to Change in Discharge Status.: Discharged to SNF (SNF location: [place] [address]; phone: [phone]; fax: [phone])) TCM Outreach Completed: 04/15/23 Future Appointments: Future Appointments Provider Department Dept Phone 04/22/2023 11:00 AM Sarah Camp [facility] [phone] 05/12/2023 11:00 AM Par[facility] Gillespie [facility] [phone] David Genao RN [facility] 2023-04-14 01:12:13 Formatting of this n ote might be different from the original. Problem: Discharge Planning Goal: Adequate for discharge Outcome: Progressing as expected Goal: Effective communication Outcome: Progressing as expected Problem: Pain Goal: Control of pain at or below patient's documented comfort goal Outcome: Progressing as expected Goal: Reduction in pain sensation Outcome: Progressing as expected Problem: Falls, Risk of Goal: Absence of falls Outcome: Progressing as expected Problem: Mobility - Impaired Goal: Able to achieve maximum mobility level Outcome: Progressing as expected Problem: Procedure Routine Goal: Absence of post-procedure complications Outcome: Progressing as expected Goal: Knowledge of procedure Outcome: Progressing as expected Problem: Infection Risk Goal: Absence of infection Outcome: Progressing as expected Nelida Peña RN [facility] 2023-04-13 00:42:02 Formatting of this n ote might be different from the original. Problem: Discharge Planning Goal: Adequate for discharge Outcome: Progressing as expected Goal: Effective communication Outcome: Progressing as expected Problem: Pain Goal: Control of pain at or below patient's documented comfort goal Outcome: Progressing as expected Goal: Reduction in pain sensation Outcome: Progressing as expected Problem: Falls, Risk of Goal: Absence of falls Outcome: Progressing as expected Problem: Mobility - Impaired Goal: Able to achieve maximum mobility level Outcome: Progressing as expected Problem: Procedure Routine Goal: Absence of post-procedure complications Outcome: Progressing as expected Goal: Knowledge of procedure Outcome: Progressing as expected Problem: Infection Risk Goal: Absence of infection Outcome: Progressing as expected [facility] 2023-04-12 10:54:13 Formatting of this n ote might be different from the original. Pt mews 5 paged resource nurse. Already in room placing IV and drawing blood. Pt appears to be in no distress. Xray at bedside. Spoke with primary RN. States "patient is tachycardic 110s but I am not worried about her". Based on resource assessment of patient, resource nurse agrees. Pt left sitting up in bed comfortable. T Rona Amaya RN [facility] 2023-04-12 01:50:47 Formatting of this n ote might be different from the original. Problem: Discharge Planning Goal: Adequate for discharge Outcome: Progressing as expected Goal: Effective communication Outcome: Progressing as expected Problem: Pain Goal: Control of pain at or below patient's documented comfort goal Outcome: Progressing as expected Goal: Reduction in pain sensation Outcome: Progressing as expected Problem: Falls, Risk of Goal: Absence of falls Outcome: Progressing as expected Problem: Mobility - Impaired Goal: Able to achieve maximum mobility level Outcome: Progressing as expected Problem: Procedure Routine Goal: Absence of post-procedure complications Outcome: Progressing as expected Goal: Knowledge of procedure Outcome: Progressing as expected Problem: Infection Risk Goal: Absence of infection Outcome: Progressing as expected Suze Burt RN [facility] 2023-04-11 11:32:04 Formatting of this n ote might be different from the original. Problem: Discharge Planning Goal: Adequate for discharge Outcome: Progressing as expected Goal: Effective communication Outcome: Progressing as expected Problem: Pain Goal: Control of pain at or below patient's documented comfort goal Outcome: Progressing as expected Goal: Reduction in pain sensation Outcome: Progressing as expected Problem: Falls, Risk of Goal: Absence of falls Outcome: Progressing as expected Problem: Mobility - Impaired Goal: Able to achieve maximum mobility level Outcome: Progressing as expected Problem: Procedure Routine Goal: Absence of post-procedure complications Outcome: Progressing as expected Goal: Knowledge of procedure Outcome: Progressing as expected Problem: Infection Risk Goal: Absence of infection Outcome: Progressing as expected Rema Kruger RN [facility] 2023-04-11 07:36:55 Formatting of this n ote might be different from the original. Problem: Discharge Planning Goal: Adequate for discharge Outcome: Progressing as expected Goal: Effective communication Outcome: Progressing as expected Problem: Pain Goal: Control of pain at or below patient's documented comfort goal Outcome: Progressing as expected Goal: Reduction in pain sensation Outcome: Progressing as expected Problem: Falls, Risk of Goal: Absence of falls Outcome: Progressing as expected Problem: Mobility - Impaired Goal: Able to achieve maximum mobility level Outcome: Progressing as expected Problem: Procedure Routine Goal: Absence of post-procedure complications Outcome: Progressing as expected Goal: Knowledge of procedure Outcome: Progressing as expected Problem: Infection Risk Goal: Absence of infection Outcome: Progressing as expected Moni Silva RN [facility] 2023-04-10 11:32:11 Formatting of this n ote might be different from the original. Problem: Discharge Planning Goal: Adequate for discharge Outcome: Progressing as expected Goal: Effective communication Outcome: Progressing as expected Problem: Pain Goal: Control of pain at or below patient's documented comfort goal Outcome: Progressing as expected Goal: Reduction in pain sensation Outcome: Progressing as expected Problem: Falls, Risk of Goal: Absence of falls Outcome: Progressing as expected Problem: Mobility - Impaired Goal: Able to achieve maximum mobility level Outcome: Progressing as expected Problem: Procedure Routine Goal: Absence of post-procedure complications Outcome: Progressing as expected Goal: Knowledge of procedure Outcome: Progressing as expected Problem: Infection Risk Goal: Absence of infection Outcome: Progressing as expected [facility] [employer] 2023-04-09 11:19:14 Formatting of this n ote might be different from the original. Problem: Discharge Planning Goal: Adequate for discharge Outcome: Progressing as expected Goal: Effective communication Outcome: Progressing as expected Problem: Pain Goal: Control of pain at or below patient's documented comfort goal Outcome: Progressing as expected Goal: Reduction in pain sensation Outcome: Progressing as expected Problem: Falls, Risk of Goal: Absence of falls Outcome: Progressing as expected Problem: Mobility - Impaired Goal: Able to achieve maximum mobility level Outcome: Progressing as expected Problem: Procedure Routine Goal: Absence of post-procedure complications Outcome: Progressing as expected Goal: Knowledge of procedure Outcome: Progressing as expected Problem: Infection Risk Goal: Absence of infection Outcome: Progressing as expected [facility] [employer] 2023-04-08 11:31:16 Formatting of this n ote might be different from the original. Problem: Discharge Planning Goal: Adequate for discharge Outcome: Progressing as expected Goal: Effective communication Outcome: Progressing as expected Problem: Pain Goal: Control of pain at or below patient's documented comfort goal Outcome: Progressing as expected Goal: Reduction in pain sensation Outcome: Progressing as expected Problem: Falls, Risk of Goal: Absence of falls Outcome: Progressing as expected Problem: Mobility - Impaired Goal: Able to achieve maximum mobility level Outcome: Progressing as expected Problem: Procedure Routine Goal: Absence of post-procedure complications Outcome: Progressing as expected Goal: Knowledge of procedure Outcome: Progressing as expected Problem: Infection Risk Goal: Absence of infection Outcome: Progressing as expected [facility] 2023-04-08 10:30:48 Formatting of this n ote might be different from the original. NEUROSURGERY OPERATIVE REPORT DATE OF SURGERY: 04/08/2023 FACULTY SURGEON: Natalie Ridley MD RESIDENT SURGEON: Clyde Akers MD PREOPERATIVE DIAGNOSIS: Cervical myelopathy, Spine mets POSTOPERATIVE DIAGNOSIS: Same OPERATION: C2-T2 posterior instrumentation C4/C5 laminectomy, C56 bilateral foraminotomy C2-T2 posterior arthrodesis Use of Microscope HISTORY: Patient is a 78 year old [...] explained in detail, and informed consent was obtained. PROCEDURE: The patient was brought to the operating [...] subperiosteal exposure from C2 to T2. The simpleFLOORS navigation array was attached to the inferiormost spinous process. An O-arm spin was done for neuronavigation. Accuracy was confirmed with bony landmarks. Using neuronavigation, we first placed C2 pars screws bilaterally without complication. We then proceeded to place T1 and T2 pedicle screws using neuronavigation without complication. Attention was then turned to the subaxial cervical spine screws from C3-C6. We drilled our initial airplane pilot commercial holes for our lateral mass screw placement. [...] was taken to PACU in stable condition postoperatively. Estimated blood loss: 100 cc Complications: None immediate Clyde Akers MD Neurosurgery Associated attestation - Natalie Ridley MD - 04/09/2023 10:22 AM CDT I was present for all critical portions of the procedure. CPT 65669, 18425 x 6, 22976 and 93130, 79966, 73221, 81000 NS-NEUROLOGICAL SURGERY [facility] 2023-04-08 10:30:48 Formatting of this n ote is different from the original. BRIEF NEUROSURGERY OPERATIVE NOTE Date of Surgery: 04/08/2023 Faculty: Natalie Ridley MD Resident(s): Clyde Akers MD Anesthesia Type: General Pre-operative diagnosis: cervical myelopathy, spine mets Post-operative diagnosis: same Procedures: C2-T2 posterior fusion, C4 & C5 lami, C56 b/l foraminotomies Findings: moderate compression at C45, well decompressed at b/l C56 foramen Complications: none Estimated blood loss: 100mL Specimens: ID Type Source Tests Collected by Time Destination A : Urine URINE, CATHETERIZED URINALYSIS, URINE CULTURE Natalie Ridley MD 04/08/2023 0928 Implants: Implant Name Type Inv. Item Serial No. Interior Design Faculty Member Lot No. LRB No. Used Action GRFT BN CANC CRSH 30MM [facility]12 - [id number] Tissue, Human GRFT BN CANC CRSH 30MM [facility]12 [id number] [facility] [id number] N/A 1 Implanted GFT BN MAX DMNZ BN MTRX 10CC ALGRF PTTY #2018-40 - [id number] Tissue, Human GFT BN MAX DMNZ BN MTRX 10CC ALGRF PTTY #2018-40 [id number] [facility] [id number] N/A 1 Implanted GLOBUS QUARTER 3.5X16MM SCREW; [...] MEDICAL N/A N/A 13 Implanted Drains: medium hemovac Patient was extubated and transferred to the PACU without complication in stable condition. Clyde Akers MD Neurosurgery, PGY-6 [place] Inquiries, Page [phone] [facility] Inquiries, ([phone]) [facility] 2023-04-07 16:41:51 Formatting of this n ote might be different from the original. Problem: Falls, Risk of Goal: Absence of falls Outcome: Progressing as expected Problem: Mobility - Impaired Goal: Able to achieve maximum mobility level Outcome: Progressing as expected Problem: Infection Risk Goal: Absence of infection Outcome: Progressing as expected [facility] 2023-04-07 03:58:55 Formatting of this n ote might be different from the original. Problem: Discharge Planning Goal: Adequate for discharge Outcome: Progressing as expected Goal: Effective communication Outcome: Progressing as expected Problem: Pain Goal: Control of pain at or below patient's documented comfort goal Outcome: Progressing as expected Goal: Reduction in pain sensation Outcome: Progressing as expected Problem: Falls, Risk of Goal: Absence of falls Outcome: Progressing as expected Problem: Mobility - Impaired Goal: Able to achieve maximum mobility level Outcome: Progressing as expected Problem: Procedure Routine Goal: Absence of post-procedure complications Outcome: Progressing as expected Goal: Knowledge of procedure Outcome: Progressing as expected Problem: Infection Risk Goal: Absence of infection Outcome: Progressing as expected Hilaria Acharya RN [facility] 2023-04-06 08:23:55 Formatting of this n ote might be different from the original. Problem: Discharge Planning Goal: Adequate for discharge Outcome: Progressing as expected Goal: Effective communication Outcome: Progressing as expected Ama Vasques RN [facility] 2023-04-06 06:01:40 Formatting of this n ote might be different from the original. Problem: Discharge Planning Goal: Adequate for discharge Outcome: Progressing as expected Goal: Effective communication Outcome: Progressing as expected Problem: Pain Goal: Control of pain at or below patient's documented comfort goal Outcome: Progressing as expected Goal: Reduction in pain sensation Outcome: Progressing as expected Problem: Falls, Risk of Goal: Absence of falls Outcome: Progressing as expected Problem: Mobility - Impaired Goal: Able to achieve maximum mobility level Outcome: Progressing as expected Marya Dial RN [facility] 2023-04-05 09:26:38 Formatting of this n ote might be different from the original. Problem: Discharge Planning Goal: Adequate for discharge Outcome: Progressing as expected Goal: Effective communication Outcome: Progressing as expected Problem: Pain Goal: Control of pain at or below patient's documented comfort goal Outcome: Progressing as expected Goal: Reduction in pain sensation Outcome: Progressing as expected Problem: Falls, Risk of Goal: Absence of falls Outcome: Progressing as expected Problem: Mobility - Impaired Goal: Able to achieve maximum mobility level Outcome: Progressing as expected Anaya Iyer RN [facility] 2023-04-05 05:26:34 Formatting of this n ote might be different from the original. Problem: Discharge Planning Goal: Adequate for discharge Outcome: Progressing as expected Goal: Effective communication Outcome: Progressing as expected Problem: Pain Goal: Control of pain at or below patient's documented comfort goal Outcome: Progressing as expected Goal: Reduction in pain sensation Outcome: Progressing as expected Problem: Falls, Risk of Goal: Absence of falls Outcome: Progressing as expected Problem: Mobility - Impaired Goal: Able to achieve maximum mobility level Outcome: Progressing as expected [facility] 2023-04-04 17:25:26 Formatting of this n ote might be different from the original. Problem: Discharge Planning Goal: Adequate for discharge Outcome: Progressing as expected Goal: Effective communication Outcome: Progressing as expected Problem: Pain Goal: Control of pain at or below patient's documented comfort goal Outcome: Progressing as expected Goal: Reduction in pain sensation Outcome: Progressing as expected Problem: Falls, Risk of Goal: Absence of falls Outcome: Progressing as expected Problem: Mobility - Impaired Goal: Able to achieve maximum mobility level Outcome: Progressing as expected Henrietta Silva RN [facility] 2023-04-04 04:53:23 Formatting of this n ote might be different from the original. Problem: Discharge Planning Goal: Adequate for discharge Outcome: Progressing as expected Goal: Effective communication Outcome: Progressing as expected Problem: Pain Goal: Control of pain at or below patient's documented comfort goal Outcome: Progressing as expected Goal: Reduction in pain sensation Outcome: Progressing as expected Problem: Falls, Risk of Goal: Absence of falls Outcome: Progressing as expected Problem: Mobility - Impaired Goal: Able to achieve maximum mobility level Outcome: Progressing as expected [facility] 2023-04-03 08:26:10 Formatting of this n ote might be different from the original. Problem: Discharge Planning Goal: Adequate for discharge Outcome: Progressing as expected Goal: Effective communication Outcome: Progressing as expected Problem: Pain Goal: Control of pain at or below patient's documented comfort goal Outcome: Progressing as expected Goal: Reduction in pain sensation Outcome: Progressing as expected Problem: Falls, Risk of Goal: Absence of falls Outcome: Progressing as expected Problem: Mobility - Impaired Goal: Able to achieve maximum mobility level Outcome: Progressing as expected [facility] 2023-04-03 01:42:56 Formatting of this n ote might be different from the original. Problem: Discharge Planning Goal: Adequate for discharge Outcome: Progressing as expected Goal: Effective communication Outcome: Progressing as expected Problem: Pain Goal: Control of pain at or below patient's documented comfort goal Outcome: Progressing as expected Goal: Reduction in pain sensation Outcome: Progressing as expected Problem: Falls, Risk of Goal: Absence of falls Outcome: Progressing as expected Problem: Mobility - Impaired Goal: Able to achieve maximum mobility level Outcome: Progressing as expected [facility] 2023-04-02 09:12:26 Formatting of this n ote might be different from the original. Problem: Discharge Planning Goal: Adequate for discharge Outcome: Progressing as expected Goal: Effective communication Outcome: Progressing as expected Problem: Pain Goal: Control of pain at or below patient's documented comfort goal Outcome: Progressing as expected Goal: Reduction in pain sensation Outcome: Progressing as expected Problem: Falls, Risk of Goal: Absence of falls Outcome: Progressing as expected Problem: Mobility - Impaired Goal: Able to achieve maximum mobility level Outcome: Progressing as expected [facility] 2023-04-02 07:24:04 Formatting of this n ote might be different from the original. Problem: Discharge Planning Goal: Adequate for discharge 04/02/2023723 by Nelida Peña RN Outcome: Progressing as expected 04/02/2023126 by Nelida Peña RN Outcome: Progressing as expected Goal: Effective communication 04/02/2023723 by Nelida Peña RN Outcome: Progressing as expected 04/02/2023126 by Nelida Peña RN Outcome: Progressing as expected Problem: Pain Goal: Control of pain at or below patient's documented comfort goal 04/02/2023 07 by Nelida Peña RN Outcome: Progressing as expected 04/02/2023126 by Nelida Peña RN Outcome: Progressing as expected Goal: Reduction in pain sensation 04/02/2023723 by Nelida Peña RN Outcome: Progressing as expected 04/02/2023126 by Nelida Peña RN Outcome: Progressing as expected Problem: Falls, Risk of Goal: Absence of falls 04/02/2023723 by Nelida Peña RN Outcome: Progressing as expected 04/02/2023 012 by Nelida Peña RN Outcome: Progressing as expected Problem: Mobility - Impaired Goal: Able to achieve maximum mobility level 04/02/2023723 by Nelida Peña RN Outcome: Progressing as expected 04/02/2023126 by Nelida Peña RN Outcome: Progressing as expected [facility] 2023-04-02 01:27:27 Formatting of this n ote might be different from the original. Problem: Discharge Planning Goal: Adequate for discharge Outcome: Progressing as expected Goal: Effective communication Outcome: Progressing as expected Problem: Pain Goal: Control of pain at or below patient's documented comfort goal Outcome: Progressing as expected Goal: Reduction in pain sensation Outcome: Progressing as expected Problem: Falls, Risk of Goal: Absence of falls Outcome: Progressing as expected Problem: Mobility - Impaired Goal: Able to achieve maximum mobility level Outcome: Progressing as expected [facility] 2023-04-01 00:41:11 Formatting of this n ote might be different from the original. Problem: Discharge Planning Goal: Adequate for discharge Outcome: Progressing as expected Goal: Effective communication Outcome: Progressing as expected Problem: Pain Goal: Control of pain at or below patient's documented comfort goal Outcome: Progressing as expected Goal: Reduction in pain sensation Outcome: Progressing as expected Problem: Falls, Risk of Goal: Absence of falls Outcome: Progressing as expected Problem: Mobility - Impaired Goal: Able to achieve maximum mobility level Outcome: Progressing as expected [facility] [employer] 2023-03-31 14:20:00 Formatting of this n ote might be different from the original. Date of Procedure: 03/31/23 Faculty Surgeon: Dr. Ridley Resident Surgeon: Dr. Rich Snyder Preoperative Diagnosis: Pathologic C5 compression fracture with [...] a C5/6 corpectomy and C4-C7 anterior cervical fusion. SURGICAL RISKS: Patient was well apprised of all [...] the operating room and continued on antibiotic regimen. ANESTHESIA: The patient was sedated and intubated without difficulty by the anesthesia service. Eyes were taped shut after ointment was applied to prevent corneal abrasion. A Anastacia Hugger was placed over the lower body to maintain control of core body temperature. POSITIONING: The patient was placed in the supine [...] room in stable condition. Aide Duenas MD PhD Neurosurgery Service For inquiries please page [phone] Associated attestation - Natalie Ridley MD - 04/06/2023 11:14 AM CDT I was present and scrubbed in for all critical portions of the procedure. Includes C5 and C6 corpectomies for metastatic tumor causing pathologic fracture. C4-7 anterior discectomies and interbody arthrodesis, C4-7 anterior segmental instrumentation, Placement of expandable titanium corpectomy cage. Use of operating microscope. [facility] 2023-03-31 14:20:00 Formatting of this n ote might be different from the original. BRIEF NEUROSURGERY OPERATIVE NOTE Date of Surgery: 03/31/2023 Faculty: Dr. Ridley Resident(s): Dr. 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 Post-operative diagnosis: Pathologic C5 compression fracture with retropulsion, cervical stenosis, metastatic disease of C5 and C6 vertebral bodies Procedures: C5, C6 corpectomies and C4-C7 anterior cervical fusion Findings: Expandable titanium cage Complications: none Estimated blood loss: 200 mL Specimens: C5 vertebral body sent for pathology Drains: medium hemovac Patient was extubated and transferred to the PACU without complication Aide Duenas MD PhD Neurosurgery Service For inquiries please page [phone] [facility] 2023-03-31 02:26:48 Formatting of this n ote might be different from the original. Problem: Discharge Planning Goal: Adequate for discharge Outcome: Progressing as expected Goal: Effective communication Outcome: Progressing as expected Problem: Pain Goal: Control of pain at or below patient's documented comfort goal Outcome: Progressing as expected Goal: Reduction in pain sensation Outcome: Progressing as expected Problem: Falls, Risk of Goal: Absence of falls Outcome: Progressing as expected Problem: Mobility - Impaired Goal: Able to achieve maximum mobility level Outcome: Progressing as expected [facility] 2023-03-29 15:34:40 Formatting of this n ote might be different from the original. Problem: Pain Goal: Control of pain at or below patient's documented comfort goal Outcome: Progressing as expected Goal: Reduction in pain sensation Outcome: Progressing as expected Problem: Falls, Risk of Goal: Absence of falls Outcome: Progressing as expected [facility] 2023-03-29 03:43:20 Formatting of this n ote might be different from the original. Problem: Discharge Planning Goal: Adequate for discharge Outcome: Progressing as expected Goal: Effective communication Outcome: Progressing as expected Problem: Pain Goal: Control of pain at or below patient's documented comfort goal Outcome: Progressing as expected Goal: Reduction in pain sensation Outcome: Progressing as expected Problem: Falls, Risk of Goal: Absence of falls Outcome: Progressing as expected Problem: Mobility - Impaired Goal: Able to achieve maximum mobility level Outcome: Progressing as expected [facility]
[2024-07-12] MEDS ORDERED: NA CHLORIDE 0.9% 1,000 ML ONE (19:36)
[2024-07-12 20:09] LABS: Absolute Lymphocytes (CBC) 0.4 K/uL (0.7-4.9); Absolute Monocytes 0.3 K/uL (0.1-1.3); Absolute Neutrophil 10.5 K/uL (1.8-8.0); Basophils % 0.2 % (0-1.3); Hematocrit 38.7 % (36.0-45.0); Hemoglobin 13.3 g/dL (12.0-15.0); Lymphocytes % 3.8 % (15.3-44.8); MCH 32.7 pg (27.0-35.0); MCHC 34.4 g/dL (32.0-36.0); MCV 95.1 fL (80-100); MPV 7.5 fL (7.6-11.3); Monocytes % 2.7 % (3.3-12.3); Neutrophils % 93.3 % (41.7-73.7); Platelets 284 thou/uL (152-406); RBC Red Blood Cell Count 4.07 M/uL (3.86-4.86); Red Cell Distribution Width 14.4 % (12.1-15.2)
--- NOTE | 2024-07-12 20:22 | RAD REPORT ---
Procedure: Chest Single View HISTORY: Cough COMPARISON: August 2023 FINDINGS: The lungs appear clear of acute infiltrate. No significant pleural effusion noted. The heart is normal size. IMPRESSION: No acute abnormality is displayed.
[2024-07-12 20:24] LABS: PT Prothrombin Time 13.2 SECONDS (9.4-12.5); Protime INR 1.18
[2024-07-12 21:55] LABS: Blood Morphology Comment NOT SEEN (NOT SEEN); Platelet Estimate ADEQ; White Blood Cell Scan OK (OK)
[2024-07-13 00:34] LABS: Magnesium 2.1 mg/dL (1.6-2.4)
[2024-07-13 00:35] LABS: Albumin 3.3 g/dL (3.4-5.0)
[2024-07-13 00:37] LABS: Bilirubin Direct 0.2 mg/dL (0-0.2)
[2024-07-13 00:39] LABS: Albumin/Globulin Ratio 0.8 (1.1-1.8); Bilirubin Indirect, Calculated 0.7 mg/dL (0.2-0.8); Bilirubin Total 0.9 mg/dL (0.2-1.0); Protein, Total 7.3 g/dL (6.4-8.2)
[2024-07-13 00:42] LABS: Troponin High Sensitivity 7.4 pg/mL (<58.9)
--- NOTE | 2024-07-13 01:14 | EDPHYS ---
Physician Documentation [facility] Name: Madeline Parks Age: 79 yrs Sex: Female : 1945 Arrival Date: 07/12/2024 Time: 19:12 Bed 8 Private MD: ED Physician Carlitos Vickers HPI: 07/12 20:35 This 79 yrs old Female presents to ER via EMS with complaints of Diarrhea. bo1 20:35 The patient presents to the emergency department with diarrhea, 10x today. Onset: The bo1 symptoms/episode began/occurred gradually, today. Possible causes: Taking of 3 Senokot for constipation of 1 week. Associated signs and symptoms: Pertinent positives: Hemorrhoids, Pertinent negatives: GI bleeding. Pt called 911 as she was "sliding down" from her recliner to the floor. No LOC or AMS per pt. She lives alone.. Historical: - Allergies: 19:40 No Known Allergies; ha1 - PMHx: 19:40 Arthritis; diabetes mellitus; Hypercholesterolemia; Hypertensive disorder; stage four ha1 breast cancer (2023); - Immunization history:: Adult Immunizations up to date. - Infectious Disease History:: Denies. - Social history:: Smoking status: Patient/guardian denies using tobacco, the patient reports quitting approximately 20 years ago. ROS: 20:37 Constitutional: Negative for fever, chills, and weight loss bo1 20:37 Constitutional: Positive for Constipation, Negative for poor PO intake, 20:37 Cardiovascular: Negative for chest pain, palpitations, 20:37 Respiratory: Negative for cough, shortness of breath, 20:37 Abdomen/GI: Positive for diarrhea, constipation, Negative for nausea and vomiting, rectal pain, rectal bleeding, 20:37 MS/extremity: Negative for pain, swelling, 20:37 Neuro: Negative for dizziness, Exam: 20:39 Constitutional: This is a well developed, well nourished patient who is awake, alert, bo1 and in no acute distress. 20:39 Constitutional: The patient appears in no acute distress, alert, awake, comfortable, 20:39 Head/face: Exam is negative for acute changes, obvious evidence of injury or deformity, 20:39 Eyes: Conjunctiva: pale, bilaterally, 20:39 Neck: External neck: is normal, no acute changes, 20:39 Cardiovascular: Exam negative for acute changes, Rate: normal, Rhythm: regular, Pulses: no pulse deficits are appreciated, 20:39 Respiratory: the patient does not display signs of respiratory distress, Respirations: normal, no acute changes, Breath sounds: are clear throughout, 20:39 Abdomen/GI: Inspection: abdomen appears normal, Bowel sounds: normal, Palpation: soft, nontender, rebound tenderness, is not appreciated, 20:39 Skin: Turgor: is good, Dry and w/o acute changes. 20:39 Neuro: Exam negative for acute changes, focal neuro deficits, Orientation: is normal, appropriate for stated age, no acute changes, Mentation: is normal, appropriate for stated age, no acute changes, Memory: is normal, appropriate for stated age, no acute changes, 07/13 01:19 ECG was reviewed by the Attending Physician. bo1 Vital Signs: 07/12 19:24 BP 145 / 61; Pulse 82; Resp 17 S; Temp 98.9(O); Pulse Ox 98% on R/A; Weight 74.84 kg; ha1 Height 5 ft. 6 in. ; 20:06 BP 130 / 54; Pulse 79; Resp 18 S; Temp 98.1(TE); Pulse Ox 97% on R/A; br2 21:38 BP 132 / 101; Pulse 80; Resp 18 S; Temp 97.2; Pulse Ox 97% on R/A; br2 22:34 BP 148 / 43; Pulse 77; Resp 18 S; Pulse Ox 98% on R/A; br2 23:57 BP 127 / 49; Pulse 74; Resp 22; Pulse Ox 97% on R/A; br2 07/13 00:44 BP 138 / 58; Pulse 80; Resp 18 S; Pulse Ox 97% on R/A; br2 01:06 BP 138 / 58; Pulse 74; Resp 18 S; Pulse Ox 99% on R/A; br2 07/12 19:24 Body Mass Index 26.63 (74.84 kg, 167.64 cm) ha1 MDM: 07/12 19:24 Medical Screening Exam initiated edgardo 07/13 01:09 Differential diagnosis: Constipation; Senokot excess; Hemorrhoids. Data reviewed: vital bo1 signs, lab test result(s), radiologic studies, plain films. 01:10 ED course: Pt has been stable. 1 episode of diarrhea. Xray prelim ER review suggest bo1 mild constipation w/o obstruction. Pt to be Rxed a hemorrhoid med and has been advised to not overdo the OTC Senokot. 07/12 19:25 Order name: Basic Metabolic Panel; Complete Time: 00:45 [facility] 07/12 19:25 Order name: CBC with Diff; Complete Time: 23:19 [facility] 07/12 19:25 Order name: LFT's; Complete Time: 00:45 [facility] 07/12 19:25 Order name: Magnesium; Complete Time: 00:45 [facility] 07/12 19:25 Order name: NT PRO-BNP; Complete Time: 00:45 [facility] 07/12 19:25 Order name: PT-INR; Complete Time: 23:19 [facility] 07/12 19:25 Order name: Troponin HS; Complete Time: 00:45 [facility] 07/12 19:25 Order name: Lipase; Complete Time: 00:45 [facility] 07/12 21:56 Order name: CBC Smear Scan; Complete Time: 23:19 EDMS 07/12 19:25 Order name: XRAY Chest (1 view); Complete Time: 23:19 [facility] 07/12 23:59 Order name: Abdomen 1 View (KUB) XRAY bo1 07/12 19:25 Order name: EKG; Complete Time: 19:26 [facility] 07/12 19:25 Order name: Cardiac monitoring [facility] 07/12 19:25 Order name: EKG - Nurse/Tech [facility] 07/12 19:25 Order name: IV Saline Lock; Complete Time: 20:02 [facility] 07/12 19:25 Order name: Labs collected and sent; Complete Time: 20:02 [facility] 07/12 19:25 Order name: O2 Per Protocol; Complete Time: 20:02 [facility] 07/12 19:25 Order name: O2 Sat Monitoring; Complete Time: 20:02 [facility] 07/12 20:19 Order name: Misc. Order: recollect green top kmf EC: Rate is 78 beats/min. Rhythm is regular. QRS [place] is Normal. CA interval is normal. QRS bo1 interval is normal. QT interval is prolonged. Q waves are Present in leads aVR, V1. No ST changes noted. Clinical impression: Normal ECG and No evidence of ischemia. Interpreted by me. Reviewed by me. Administered Medications: 07/12 20:01 Drug: NS 0.9% IV 1000 ml IV at 1000 ml once; to be given as a bolus over 60 minutes br2 Route: IV; Rate: 1000 ml; Site: right hand; 21:00 Follow up: IV Status: Completed infusion; IV Intake: 1000ml br2 Disposition Summary: 07/13/24 01:14 Discharge Ordered Notes: Location: Home bo1 Problem: chronic bo1 Symptoms: have improved bo1 Condition: Stable bo1 Diagnosis - Diarrhea, unspecified bo1 - Unspecified hemorrhoids bo1 Followup: bo1 - With: Private Physician - When: Upon discharge from the Emergency Department - Reason: Recheck today's complaints, Continuance of care Discharge Instructions: - Discharge Summary Sheet bo1 - Hemorrhoids bo1 - Constipation, Adult, Pjre-fn-Colg bo1 Forms: - Medication Reconciliation Form bo1 - Antibiotic Education bo1 - Prescription Opioid Use bo1 - Patient Portal Instructions bo1 - Leadership Thank You Letter bo1 Prescriptions: - Proctofoam HC 1-1 % Rectal foam - apply 1 application RECTAL route 3 times per day as needed for hemorrhoids; 1 bo1 Applicator; Refills: 0, Product Selection Permitted Signatures: Dispatcher [employer] EDMS Zia Camp MD MD cha Ayala, Heidy, RN RN ha1 [place] [facility] Carlitos Vickers MD MD bo1 Jade Elizondo, RN RN br2 Corrections: (The following items were deleted from the chart) 19:26 19:26 BASIC METABOLIC PANEL+C.LAB.BRZ ordered. EDMS EDMS 19:26 19:26 CBC+H.LAB.BRZ ordered. EDMS EDMS 19: 19:26 HEPATIC FUNCTION+C.LAB.BRZ ordered. EDMS EDMS 19:26 19:26 MAGNESIUM+C.LAB.BRZ ordered. EDMS EDMS 19:26 19:26 PROBNP+C.LAB.BRZ ordered. EDMS EDMS 19:26 19:26 PROTIME (+INR)+COAG.LAB.BRZ ordered. EDMS EDMS 19:26 19:26 Troponin High Sensitivity+C.LAB.BRZ ordered. EDMS EDMS 19:26 19:26 LIPASE+C.LAB.BRZ ordered. EDMS EDMS 19:26 19:26 Urinalysis+U.LAB.BRZ ordered. EDMS EDMS 19:26 19: Fecal Leukocyte Stain+BA.LAB.BRZ ordered. EDMS EDMS 19: Stool Culture+BA.LAB.BRZ ordered. EDMS EDMS 19:40 Home Meds: stage four breast cancer; ha1 ha1 19:40 PMHx: breast cancer (Hypertensive disord); ha1 ha1
--- NOTE | 2024-07-13 01:14 | ER ---
Nurse's Notes [facility] Name: Madeline Parks Age: 79 yrs Sex: Female : 1945 Arrival Date: 07/12/2024 Time: 19:12 Bed 8 Private MD: Diagnosis: Diarrhea, unspecified;Unspecified hemorrhoids Presentation: 07/12 19:24 Chief complaint: EMS states: having constipated for the past two to three weeks, took ha1 Senokot to help the constipation and now she is having diarrhea. 19:24 Coronavirus screen: Client denies travel out of the [place] in the last 14 days. Ebola ha1 Screen: No symptoms or risks identified at this time. Initial Sepsis Screen: Does the patient meet any 2 criteria? No. Patient's initial sepsis screen is negative. Does the patient have a suspected source of infection? No. Patient's initial sepsis screen is negative. Risk Assessment: Do you want to hurt yourself or someone else? Patient reports no desire to harm self or others. Onset of symptoms was July 12, 2024. 19:24 Method Of Arrival: EMS: [facility] ha1 19:24 Acuity: SHAW 3 ha1 Triage Assessment: 19:24 General: Appears comfortable, Behavior is cooperative, appropriate for age. Pain: ha1 Denies pain. Neuro: Level of Consciousness is awake, alert, obeys commands, Oriented to person, place, time, situation. Cardiovascular: Capillary refill Patient's skin is warm and dry. Respiratory: Airway is patent Respiratory effort is even, unlabored, Respiratory pattern is regular, symmetrical. GI: Abdomen is round non-distended, Reports diarrhea, after taking laxatives. Derm: Skin is pink, warm \T\ dry. Historical: - Allergies: 19:40 No Known Allergies; ha1 - PMHx: 19:40 Arthritis; diabetes mellitus; Hypercholesterolemia; Hypertensive disorder; stage four ha1 breast cancer (2023); - Immunization history:: Adult Immunizations up to date. - Infectious Disease History:: Denies. - Social history:: Smoking status: Patient/guardian denies using tobacco, the patient reports quitting approximately 20 years ago. Screenin:30 [facility] ED Fall Risk Assessment (Adult) History of falling in the last 3 months, br2 including since admission No falls in past 3 months (0 pts) Confusion or Disorientation No (0 pts) Intoxicated or Sedated No (0 pts) Impaired Gait No (0 pts) Mobility Assist Device Used No (0 pt) Altered Elimination No (0 pt) Score/Fall Risk Level 0 - 2 = Low Risk Oriented to surroundings. Abuse screen: Denies threats or abuse. Denies injuries from another. Nutritional screening: No deficits noted. Tuberculosis screening: No symptoms or risk factors identified. Assessment: 19:30 Reassessment: Patient and/or family updated on plan of care and expected duration. Pain br2 level reassessed. Patient is alert, oriented x 3, equal unlabored respirations, skin warm/dry/pink. General: Appears in no apparent distress. comfortable, Behavior is calm, cooperative. Pain: Denies pain. Neuro: Gallegos Agitation-Sedation Scale (RASS): 0 - Alert and Calm Level of Consciousness is awake, alert, obeys commands, Oriented to person, place, time, situation. GI: Reports diarrhea, PT DENIES ANY NEW PAIN....CHRONIC HEMORROID PAIN. PT STATES HE SON WANTED TO HAVE HER CHECKED OUT BUT SHE FEELS FINE. 21:37 Reassessment: No changes from previously documented assessment. Patient and/or family br2 updated on plan of care and expected duration. Pain level reassessed. Patient is alert, oriented x 3, equal unlabored respirations, skin warm/dry/pink. NO COMPLAINTS AT THIS TIME. BM WATERY DIARRHEA NOT ENOUGH FOR A STOOL SAMPLE. 23:57 Reassessment: No changes from previously documented assessment. Patient and/or family br2 updated on plan of care and expected duration. Pain level reassessed. Patient is alert, oriented x 3, equal unlabored respirations, skin warm/dry/pink. Vital Signs: 19:24 BP 145 / 61; Pulse 82; Resp 17 S; Temp 98.9(O); Pulse Ox 98% on R/A; Weight 74.84 kg; ha1 Height 5 ft. 6 in. ; 20:06 BP 130 / 54; Pulse 79; Resp 18 S; Temp 98.1(TE); Pulse Ox 97% on R/A; br2 21:38 BP 132 / 101; Pulse 80; Resp 18 S; Temp 97.2; Pulse Ox 97% on R/A; br2 22:34 BP 148 / 43; Pulse 77; Resp 18 S; Pulse Ox 98% on R/A; br2 23:57 BP 127 / 49; Pulse 74; Resp 22; Pulse Ox 97% on R/A; br2 07/13 00:44 BP 138 / 58; Pulse 80; Resp 18 S; Pulse Ox 97% on R/A; br2 01:06 BP 138 / 58; Pulse 74; Resp 18 S; Pulse Ox 99% on R/A; br2 07/12 19:24 Body Mass Index 26.63 (74.84 kg, 167.64 cm) ha1 ED Course: 07/12 19:24 Patient arrived in ED. [email or web address] 19:24 Zia Camp MD is Attending Physician. [email or web address] 19:30 Patient has correct armband on for positive identification. Placed in gown. Bed in low br2 position. Call light in reach. Side rails up X 1. Provided Education on: PLAN OF CARE. 19:34 Jade Elizondo, RN is Primary Nurse. br2 19:40 Triage completed. ha1 19:45 Inserted saline lock: 22 gauge in right hand, using aseptic technique. br2 20:02 Attending Physician role handed off by Zia Camp MD bo1 20:02 Carlitos Vickers MD is Attending Physician. bo1 20:02 Basic Metabolic Panel Sent. br2 20:02 CBC with Diff Sent. br2 20:02 LFT's Sent. br2 20:02 Magnesium Sent. br2 20:02 NT PRO-BNP Sent. br2 20:02 PT-INR Sent. br2 20:02 Troponin HS Sent. br2 20:02 Lipase Sent. br2 20:05 XRAY Chest (1 view) In Process Unspecified. EDMS 07/13 00:44 Abdomen 1 View (KUB) XRAY In Process Unspecified. EDMS 01:51 IV discontinued, intact, bleeding controlled, No redness/swelling at site. Pressure br2 dressing applied. 01:51 No provider procedures requiring assistance completed. br2 Administered Medications: 07/12 20:01 Drug: NS 0.9% IV 1000 ml IV at 1000 ml once; to be given as a bolus over 60 minutes br2 Route: IV; Rate: 1000 ml; Site: right hand; 21:00 Follow up: IV Status: Completed infusion; IV Intake: 1000ml br2 Medication: 07/13 01:52 VIS not applicable for this client. br2 Intake: 07/12 21:00 IV: 1000ml; Total: 1000ml. br2 Outcome: 07/13 01:14 Discharge ordered by . bo1 01:51 Discharged to home via wheelchair, br2 01:51 Condition: stable 01:51 Discharge instructions given to patient, Instructed on discharge instructions, follow up and referral plans. medication usage, Demonstrated understanding of instructions, follow-up care, medications, Prescriptions given X 1, 01:52 Patient left the ED. br2 Signatures: Dispatcher [employer] EDAR Zia Camp MD MD cha Jeffries, Jennifer [email or web address] Meagan Bernard RN RN ha1 Carlitos Vickers MD MD boJade Lane, GLEN RN br2 Corrections: (The following items were deleted from the chart) 07/12 19:43 19:40 Home Meds: stage four breast cancer; ha1 ha1 19:43 19:40 PMHx: breast cancer (Hypertensive disord); ha1 ha1
--- NOTE | 2024-07-13 06:29 | RAD REPORT ---
EXAM: XR Abdomen, 2 Views CLINICAL HISTORY: The patient is 79 years old and is Female; CONSTIPATION TECHNIQUE: Frontal view of the abdomen/pelvis with upright view of the abdomen. COMPARISON: No relevant prior studies available. FINDINGS: Intraperitoneal space: No free air. Gastrointestinal tract: Stool throughout the colon and rectum. No dilation. Bones/joints: Unremarkable. No acute fracture. IMPRESSION: Stool throughout the colon and rectum. Electronically signed by: Shawn Conroy MD 07/13/2024 01:14 AM [facility] 8 Due to temporary technical issues with the [employer] reporting system, reports are being sebastian d by the in-house radiologist without review as a courtesy to ensure prompt reporting the interpreting radiologist is fully responsible for the content of the report. Transcribed Date/Time: 07/13/2024 6:29 AM
[2024-07-13 09:03] VITALS: TEMP 97.2
[2024-07-13 09:07] VITALS: BP 138/58
[2024-07-13 09:08] VITALS: O2SAT 99
--- NOTE | 2024-07-13 11:32 | EKG ---
Test Date: 2024-07-12 Test Time: 20:37:37 [place] Machine Operator: NESS MEASUREMENT RESULTS: Intervals: Rate: 78 AK: 170 QRSD: 66 QT: 458 QTc: 522 [place]: P: 91 AK: 170 QRS: 62 T: 96 INTERPRETIVE STATEMENTS: Normal sinus rhythm Low voltage QRS Nonspecific T wave abnormality Prolonged QT Abnormal ECG Compared to ECG 03/28/2023 13:33:59 Low QRS voltage now present Prolonged QT interval now present Ventricular premature complex(es) no longer present T-wave abnormality still present Electronically Signed On 07-13-24 11:30:56 DIRECTOR OF DEMENTIA OPERATIONS by Zac Oropeza
== END 2024-07-13 01:52 | disposition home or self-care (01) ==
LOC: ER 19:12
DX: R19.7 Diarrhea, unspecified (principal); K64.9 Unspecified hemorrhoids
CPT/HCPCS: 93005; 85025; 80048; 36415; 83735; 85610; 80076; 84484; 83690; 83880; 74018; 71045; 96360; 99284; J7030